=== PATIENT | female | born 1985 | race Caucasian/White ===

== ENCOUNTER → 2019-03-01 10:18 | Outpatient (BNVA) | payer MEDICAID, SELFPAY | PROVIDERS: Family Provider Nurse Practitioner Family; PCP Nurse Practitioner Family; Visit Provider Nurse Practitioner Family | DX: Z76.0 Encounter for issue of repeat prescription (principal); E03.9 Hypothyroidism, unspecified; G40.909 Epilepsy, unspecified, not intractable, without status epilepticus | CPT/HCPCS: 80053; 80061; 84443; 85025 ==

== ENCOUNTER → 2019-04-08 11:07 | Outpatient (BNVA) | payer MEDICAID, SELFPAY | PROVIDERS: Visit Provider Nurse Practitioner Family | DX: N75.0 Cyst of Bartholin's gland (principal); N89.8 Other specified noninflammatory disorders of vagina; R30.0 Dysuria | CPT/HCPCS: 81001; 87070; 87086 ==

== ENCOUNTER → 2019-04-16 07:41 | Outpatient (BNVA) | payer MEDICAID, SELFPAY | PROVIDERS: Visit Provider Nurse Practitioner | DX: F43.12 Post-traumatic stress disorder, chronic (principal); F70 Mild intellectual disabilities; F33.2 Major depressive disorder, recurrent severe without psychotic features | CPT/HCPCS: 90832; 99213 ==

== ENCOUNTER → 2019-04-29 10:23 | Outpatient (BNVA) | payer MEDICAID, SELFPAY | PROVIDERS: Visit Provider Nurse Practitioner Family | DX: G40.909 Epilepsy, unspecified, not intractable, without status epilepticus (principal); F33.2 Major depressive disorder, recurrent severe without psychotic features | CPT/HCPCS: 80164 ==

== ENCOUNTER 2019-06-23 18:17 | Emergency (ER) | payer MEDICAID, SELFPAY | END 2019-06-23 22:04 | disposition admitted as inpatient to this hospital (09) | LOC: ER 06-26 09:40 | PROVIDERS: Emergency Provider Physician Assistant | DX: T18.9XXA Foreign body of alimentary tract, part unspecified, initial encounter (principal); X58.XXXA Exposure to other specified factors, initial encounter | CPT/HCPCS: 12345; 36415; 71045; 74018; 80053; 80306; 80307; 81001; 84703; 85025; 87086; 99284; 99285 ==

== ENCOUNTER 2019-06-23 18:17 | Inpatient (IN) | payer MEDICAID, SELFPAY ==
[2019-06-23 18:28] VITALS: BMI 24.2
[2019-06-23 18:33] VITALS: BP 119/71; PULSE 90; RESP 16; TEMP 36.6; O2SAT 97
--- NOTE | 2019-06-23 18:33 | XR_ITS ---
WS: [id number] XR chest 1V portable [id number] REASON FOR EXAM: swallowed FB FINDINGS: A foreign body is seen in the region of the mid stomach appears to be a nail and measures a pproximately 9 mm in length. The lung vázquez are normal. No pneumothorax. XR/XR chest 1V portable [id number] IMPRESSION: Foreign body in the stomach appears to be a small nail.
--- NOTE | 2019-06-23 18:33 | XR_ITS ---
WS: [id number] XR KUB portable [id number] REASON FOR EXAM: Swallowed FB FINDINGS: The small nail is again seen in the mid stomach area. No perforations are noted. Nonspecifi c gas is seen throughout the bowel. XR/XR KUB portable [id number] IMPRESSION: Foreign body persists in the region of the stomach.
--- NOTE | 2019-06-23 18:34 | ED_ITS ---
HPI - General Adult General: Chief complaint: Airway/Esophagus Foreign Body Stated complaint: swallowed foreign object/ SI Time Seen by Provider: 06/23/19 18:28 History of Present Illness: HPI narrative: Patient is a 34-year-old female comes to the ED after swallowing a foreign body. Past medical history of major depressive disorder PTSD, seizure disorder and patient states earlier today she swallowed a thumbtack. She did it on purpose. Patient states she swallowed the thumbtack because she was feeling suicidal. Patient says she feels really sad and depressed recently. She states she has been hearing voices and they tell her to hurt 1 of her friends and they also told her to swallow the thumbtack to commit suicide. She also does claim she has had nightmares recently of her ex- boyfriend trying to get her. Associated symptoms: Deny chest pain, dyspnea, headache(s), nausea, rash, palpitations or vomiting Review of Systems Const: Denies: fever, chills or fatigue Eyes: Denies: change in vision or eye discomfort ENMT: Denies: throat pain, painful swallowing, nasal discharge or nasal congestion Card: Denies: chest pain, palpitations, edema, swelling of feet/ankles, shortness of breath on exertion or shortness of breath when lying down Resp: Denies: shortness of breath, productive cough or non-productive cough GI: Denies: abdominal pain, nausea, vomiting, diarrhea, constipation or blood in stool : Denies: flank pain, painful urination or blood in urine Musc: Denies: neck pain, back pain or extremity swelling Skin/Breast: Denies: rash or new lesion Neuro: Denies: headache, numbness in extremities or weakness in extremities Psych: Reports: depression, auditory hallucinations, suicidal ideation and other (ingested FB-thumbtack); Denies: visual hallucinations PFSH ED PFSH: Medical History Hypothyroidism Major depressive disorder, 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 Post-traumatic stress disorder, chronic Social History Smoking and tobacco status: never smoked Alcohol intake: never Caregiver/support person: Yes Lives independently: No Household members: other Details: LIVES IN A DETENTION Housing: Assisted Living Facility Marital status: Single Current occupational status: disabled Current gender identity: Female Physical Exam Const: COMMON NORMALS: no apparent distress and oriented x3 EXAM LIMITATIONS: other limitations (Pt appears to have a intellectual disability) HENMT: COMMON NORMALS: normocephalic HEAD & SCALP: normocephalic MOUTH: oral and palatal mucosa normal THROAT: posterior oropharynx normal and uvula midline Neck/C-Spine: COMMON NORMALS: supple GENERAL: Yes normal visual inspection Resp: COMMON NORMALS: normal respiratory effort, no retractions, no use of accessory muscles and clear to auscultation bilaterally AUSCULTATION: clear to auscultation bilaterally Cardio: COMMON NORMALS: regular rate, regular rhythm, S1 normal heart sound, S2 normal heart sound, no gallops, no clicks, no murmurs and peripheral pulses 2+ throughout RATE: regular rate RHYTHM: regular rhythm HEART SOUNDS: S1 normal and S2 normal PERIPHERAL PULSES: pulses 2+ throughout GI: COMMON NORMALS: normal to inspection, nondistended, normoactive bowel sounds, soft to palpation, non-tender and no masses PALPATION: Yes soft : COMMON NORMALS: Yes no CVA tenderness BLADDER/KIDNEY EXAM: Yes no CVA tenderness Back/Pelvis: COMMON NORMALS: no CVA tenderness Neuro: COMMON NORMALS: oriented x3 and moves all extremities Psych: APPEARANCE: Yes grossly normal ATTITUDE: Yes calm and Yes agitated (easily agitated when talking about incident) ACTIVITY/MOTOR BEHAVIOR: Yes appropriate eye contact SPEECH: Yes slow MOOD & AFFECT: Yes irritable (became irritable quickly) THOUGHT PROCESS: confused THOUGHT CONTENT: Yes suicidality and Yes hallucination(s) auditory ATTENTION/CONCENTRATION: Yes attention grossly intact and Yes concentration grossly intact MEMORY/COGNITION: Yes memory grossly intact and Yes cognition grossly intact INSIGHT: limited JUDGEMENT: limited Skin: COMMON NORMALS: no rashes or lesions noted GENERAL SKIN EXAM: no rashes or lesions noted and dry skin Course Consultations: Consultation #1: I spoke with Dr. Kendall about patient's case and he agreed to accept patient into the NPU. Time: 20:14 Vital Signs: Vital signs: Vital Signs Temperature 98.2 F 06/23/19 22:59 Pulse Rate 92 06/23/19 22:59 Respiratory Rate 23 H 06/23/19 22:59 Blood Pressure 102/66 06/23/19 22:59 Pulse Oximetry 97 06/23/19 22:59 MDM - General Adult MDM Narrative: Medical decision making narrative: Patient is a 34-year-old female who comes to the ED with SI and ingestion of a foreign body. Patient states she ingested a thumbtack because she was suicidal and heard voices telling her to do it. Chest x-ray and KUB were performed and thumbtack/nail was visualized in the stomach. I contacted Dr. Kendall and talked with him about patient's case. Dr. Kendall approved admitting patient into NPU. Lab Data: Attestation: I reviewed the patient's lab results. Labs: Lab Results 06/23/19 06/23/19 06/23/19 Range/Units 18:55 18:55 18:55 WBC 15.0 H (4.0-10.0) 10^3/ uL RBC 4.25 (4.1-5.3) 10^6/u L Hgb 13.9 (11.5-15.3) g/dL Hct 42.6 (37.0-47.0) % MCV 100.2 H (81-99) fL MCH 32.7 (28.0-34.0) pg MCHC 32.6 (30.0-36.0) g/dL RDW 13.8 (12.1-15.1) % Plt Count 293 (130-400) 10^3/c mm MPV 11.1 H (7.4-10.4) fL Neut % (Auto) 58.9 % Lymph % (Auto) 32.0 % [place] % (Auto) 7.8 % Eos % (Auto) 0.5 % Baso % (Auto) 0.3 % Neut # (Auto) 8.8 H (1.8-7.7) 10^3/u L Lymph # (Auto) 4.8 (0.8-4.8) 10^3/u L [place] # (Auto) 1.2 H (0.2-0.9) 10^3/u L Eos # (Auto) 0.1 (0.0-0.8) 10^3/u L Baso # (Auto) 0.0 (0.0-0.1) 10^3/u L Nucleated RBC % (a uto) 0 % Nucleated RBCs # 0.0 /100WBC Sodium 138 (136-145) mmol/L Potassium 3.5 (3.5-5.1) mmol/L Chloride 102 (98-107) mmol/L Carbon Dioxide 24 (22-29) mmol/L Anion Gap 15.5 (5-19) BUN 26 H (6-20) mg/dL Creatinine 0.8 (0.5-0.9) mg/dL GFR Calculation 81.2 L (90-130) mL/min Glucose 86 (65-115) mg/dL Calculated Osmolal ity 282 L (285-295) mOsm/k g Calcium 9.6 (8.5-10.5) mg/dL Total Bilirubin 0.2 (0.15-1.2) mg/dL AST 21 (0-32) U/L ALT 21 (0-33) U/L Alkaline Phosphata se 49 (35-105) IU/L Total Protein 7.4 (6.6-8.7) g/dL Albumin 3.7 (3.5-5.2) g/dL Globulin 3.7 (1.3-4.6) g/dL HCG, Qual Negative (Negative) Urine Color (Yellow) Urine Appearance (CLEAR) Urine pH (5-7) Ur Specific Gravit y (1.005-1.030) Urine Protein (Negative) Urine Glucose (UA) (Normal) Urine Ketones (Negative) Urine Blood (Negative) Urine Nitrate (Negative) Urine Bilirubin (NEGATIVE) Urine Urobilinogen (Negative) mg/dL Ur Leukocyte Shala ase (Negative) Urine RBC (0-2) /hpf Urine WBC (0-5) /hpf Ur Squamous Epith Cells (0-5) Urine Bacteria (NONE) Salicylates < 0.3 L (3-10) mg/dL Urine Opiates Scre en (Negative) ng/mL Acetaminophen < 5.0 L (10-30) ug/mL Ur Barbiturates Sc reen (Negative) ng/mL Ur Phencyclidine S crn (Negative) ng/mL Ur Amphetamines Sc reen (Negative) ng/mL U Benzodiazepines Scrn (Negative) ng/mL Urine Cocaine Scre en (Negative) ng/mL U Marijuana (THC) Screen (Negative) ng/mL Ethyl Alcohol < 10 (0-10) mg/dL 06/23/19 06/23/19 Range/Units 19:10 19:10 WBC (4.0-10.0) 10^3/ uL RBC (4.1-5.3) 10^6/u L Hgb (11.5-15.3) g/dL Hct (37.0-47.0) % MCV (81-99) fL MCH (28.0-34.0) pg MCHC (30.0-36.0) g/dL RDW (12.1-15.1) % Plt Count (130-400) 10^3/c mm MPV (7.4-10.4) fL Neut % (Auto) % Lymph % (Auto) % [place] % (Auto) % Eos % (Auto) % Baso % (Auto) % Neut # (Auto) (1.8-7.7) 10^3/u L Lymph # (Auto) (0.8-4.8) 10^3/u L [place] # (Auto) (0.2-0.9) 10^3/u L Eos # (Auto) (0.0-0.8) 10^3/u L Baso # (Auto) (0.0-0.1) 10^3/u L Nucleated RBC % (a uto) % Nucleated RBCs # /100WBC Sodium (136-145) mmol/L Potassium (3.5-5.1) mmol/L Chloride (98-107) mmol/L Carbon Dioxide (22-29) mmol/L Anion Gap (5-19) BUN (6-20) mg/dL Creatinine (0.5-0.9) mg/dL GFR Calculation (90-130) mL/min Glucose (65-115) mg/dL Calculated Osmolal ity (285-295) mOsm/k g Calcium (8.5-10.5) mg/dL Total Bilirubin (0.15-1.2) mg/dL AST (0-32) U/L ALT (0-33) U/L Alkaline Phosphata se (35-105) IU/L Total Protein (6.6-8.7) g/dL Albumin (3.5-5.2) g/dL Globulin (1.3-4.6) g/dL HCG, Qual (Negative) Urine Color Yellow (Yellow) Urine Appearance Sl hazy (CLEAR) Urine pH 5 (5-7) Ur Specific Gravit y 1.015 (1.005-1.030) Urine Protein Neg (Negative) Urine Glucose (UA) Norm (Normal) Urine Ketones Negative (Negative) Urine Blood 3+ H (Negative) Urine Nitrate Negative (Negative) Urine Bilirubin Neg (NEGATIVE) Urine Urobilinogen Norm (Negative) mg/dL Ur Leukocyte Shala ase 2+ H (Negative) Urine RBC 0-4 H (0-2) /hpf Urine WBC 15-25 H (0-5) /hpf Ur Squamous Epith Cells 5-10 H (0-5) Urine Bacteria 1+ H (NONE) Salicylates (3-10) mg/dL Urine Opiates Scre en Negative (Negative) ng/mL Acetaminophen (10-30) ug/mL Ur Barbiturates Sc reen Negative (Negative) ng/mL Ur Phencyclidine S crn Negative (Negative) ng/mL Ur Amphetamines Sc reen Negative (Negative) ng/mL U Benzodiazepines Scrn Positive H (Negative) ng/mL Urine Cocaine Scre en Negative (Negative) ng/mL U Marijuana (THC) Screen Negative (Negative) ng/mL Ethyl Alcohol (0-10) mg/dL Discharge Plan Discharge Patient Disposition: Admitted As Inpatient Admit Provider: Rome Kendall Condition: Stable Discharge Date/Time: 06/23/19 22:04 Coding Level of Care Code ED Industrial Ecologist for Lasha Fwd Exam Comprehensive
--- NOTE | 2019-06-23 18:48 | PC.NURSE ---
Patient brought in to ED by caregiver when patient swallowed a tack. Patient states she wanted to kill herself and didn't want to live anymore. Patient states she was hearing voices telling her to hurt her friend. Patient states she only hears voices, denies visual hallucinations. Patient reports pain to BLQ abd pain since swallowing tack.
[2019-06-23 18:59] LABS: Basophils % 0.3 %; Eosinophils # 0.1 10^3/uL (0.0-0.8); Eosinophils % 0.5 %; Hematocrit 42.6 % (37.0-47.0); Hemoglobin 13.9 g/dL (11.5-15.3); Lymphocytes # 4.8 10^3/uL (0.8-4.8); Mean Corpuscular HGB Conc 32.6 g/dL (30.0-36.0); Mean Corpuscular Hemoglobin 32.7 pg (28.0-34.0); Mean Corpuscular Volume 100.2 fL (81-99); Mean Platelet Volume 11.1 fL (7.4-10.4); Monocytes # 1.2 10^3/uL (0.2-0.9); Monocytes % 7.8 %; Neutrophils # 8.8 10^3/uL (1.8-7.7); Neutrophils % 58.9 %; Nucleated Red Blood Cells % 0 %; Platelet Count 293 10^3/cmm (130-400); Red Blood Count 4.25 10^6/uL (4.1-5.3); Red Cell Distribution Width 13.8 % (12.1-15.1)
[2019-06-23 19:17] LABS: Alanine Aminotransferase 21 U/L (0-33); Albumin Level 3.7 g/dL (3.5-5.2); Alkaline Phosphatase 49 IU/L (35-105); Anion Gap 15.5 (5-19); Aspartate Amino Transferase 21 U/L (0-32); Blood Urea Nitrogen 26 mg/dL (6-20); Calcium 9.6 mg/dL (8.5-10.5); Carbon Dioxide 24 mmol/L (22-29); Chloride 102 mmol/L (98-107); Globulin 3.7 g/dL (1.3-4.6); Glomerular Filtration Rate 81.2 mL/min (90-130); Glucose 86 mg/dL (65-115); Osmolality Calculated 282 mOsm/kg (285-295); Potassium 3.5 mmol/L (3.5-5.1); Sodium 138 mmol/L (136-145); Total Bilirubin 0.2 mg/dL (0.15-1.2); Total Protein 7.4 g/dL (6.6-8.7)
[2019-06-23 19:19] LABS: HCG, Serum Qual Negative (Negative)
[2019-06-23 19:21] LABS: Acetaminophen < 5.0 ug/mL (10-30); Alcohol Level < 10 mg/dL (0-10); Salicylate < 0.3 mg/dL (3-10)
[2019-06-23 19:42] LABS: Amphetamines Screen Urine Negative (Negative); Barbiturates Screen Urine Negative (Negative); Benzodiazepines Screen Urine Positive (Negative); Cocaine Screen Urine Negative (Negative); Opiate Screen Urine Negative (Negative); PCP Screen Urine Negative (Negative); THC Screen Urine Negative (Negative)
[2019-06-23 20:03] LABS: Bilirubin Urine Neg (NEGATIVE); Blood Urine 3+ (Negative); Glucose Urine UA Norm (Normal); Ketones Urine Negative (Negative); Leukocyte Esterase Urine 2+ (Negative); Nitrate Urine Negative (Negative); Protein Urine Neg (Negative); Specific Gravity, Urine 1.015 (1.005-1.030); Urine Appearance SL Hazy (CLEAR); Urine Color Yellow (Yellow); Urobilinogen Urine Norm (Negative); pH Urine 5 (5-7)
[2019-06-23 20:11] LABS: Bacteria Urine 1+; RBC Urine 0-4 /hpf (0-2); WBC Urine 15-25 /hpf (0-5)
[2019-06-23 20:12] LABS: Add Urine Culture? Yes
[2019-06-23 21:58] VITALS: BP 132/78; PULSE 84; RESP 16; O2SAT 99
--- NOTE | 2019-06-23 22:04 | PC.NURSE ---
I agree with this assessment
--- NOTE | 2019-06-23 22:29 | PC.NURSE ---
This nurse called Dr. Kendall to verify he wanted to continue patients home medications as listed by this nurse. Dr. Kendall stated to continue orders. PERNELL HEWITT
[2019-06-23 22:59] VITALS: BP 102/66; PULSE 92; RESP 23; TEMP 36.8; O2SAT 97
[2019-06-23] MEDS: topiramate 100 mg Tablet PO (23:00)
[2019-06-23] MEDS: divalproex ER 250 mg Tablet (24H) PO (23:00)
[2019-06-24 06:00] VITALS: BP 110/70; PULSE 103; RESP 17; TEMP 36.5; O2SAT 99
[2019-06-24] MEDS: fluoxetine 20 mg Capsule 60 MG PO (09:45)
[2019-06-24] MEDS: levothyroxine 100 mcg Tablet PO (09:45)
--- NOTE | 2019-06-24 12:14 | P.HP_ITS ---
Providers/Chief Complaint Admitting Physician: Rome Kendall MD Chief Complaint: swallowed foreign object HPI NPU History of Present Illness Shelby Cherry is a 34 year old female who presented to the emergency room having swallowed a tack after a conflict with a housemate. She was admitted for definitive treatment with medical follow-up for the swallowed tack. She was admitted to the neuro-psych unit with much of the same presentation as she did on October 08, 2018, also swallowing a nail/tack at that time and endorsing that she was having significant frustration and difficulty with people at her group h ome. Initially she endorsed that things had gotten really bad with her hearing voices and things of that nature, however conversations with her halfway did not create the same story. We discussed the risks, benefits, and alternatives of possibly adding medication, but wanted to observe for a day to see if this was just a Cluster B flareup. Excerpts from her last hospitalization are included below as there have been no significant changes in her psychosocial circumstances. [place] [facility] [place]: History of Present Illness Date of Service: Oct 08, 2018 Copies to: Dwayne Sharma MD ; Chief Complaint: Suicidal ideation, swallowed thumbtack HPI: Patient is a 33-year-old female with a past medical history of seizure disorder and intellectual disability that presented to the emergency department for suicidal ideation. Patient reported that she didn't want to live anymore and she swallowed a thumb tack. Patient lives in assisted living. Had been doing well prior to this episode. Denies any recent illness, no fevers or chills. Caregiver is at bedside Allergies: Coded Allergies: AMOXICILLIN (Unverified Allergy, Unknown, RASH, 01/03/08) PENICILLINS (Unverified Allergy, Unknown, UNKNOWN, 03/14/09) CAREGIVER UNSURE OF REACTION Uncoded Allergies: BAND AIDS (Allergy, Intermediate, RASH, ITCH, 06/11/07) DETERGENTS (Allergy, Unknown, RASH, 01/03/08) Home Meds: Home Medications: Active Reported Levothroid (Levothyroxine Sodium) 100 Mcg Tablet 100 Mcg PO DAILY @[address] (Divalproex Sodium) 250 Mg Tablet.dr 250 Mg PO HS @20:00 Depakote ER (Divalproex Sodium) 500 Mg Tab.sr.24h 500 Mg PO BID @ 8 AND 20:00 [Daysee] 1 Tab PO DAILY @ 8 Topamax (Topiramate) 100 Mg Tablet 100 Mg PO HS @20:00 Prozac Cap (Fluoxetine HCl) 20 Mg Tablet 40 Mg PO DAILY @8 Topamax Tab (Topiramate) 200 Mg Tablet 200 Mg PO DAILY @8 Past Medical History Past Medical History Past Medical History: Intellectual disability Seizure disorder Depression Other Surgical History: Cholecystectomy Other Family Medical History: Family history unknown Other Past Social History: Patient lives at an assisted living facility Tobacco: Denies Alcohol: Denies Illicit drug use: Denies Hospital Course: Shelby presented to the hospital secondary to swallowing a thumb tack. After e valuation for medical and surgical management of the ingestion, she was transferred to the psychiatric unit secondary to continue reports of lethality. Once on the unit she described concerns about the isolation and lack of camaraderie that she experienced that her structured living/halfway envi ronment. Her guardian was contacted and ultimately she was able to gain some acceptance of her situation and limited options from a standpoint of living arrangements after discharge. She slowly acclimated to the individual, group and milieu therapies provided. She was continued on her home medications without incident. She demonstrated some clear cluster B traits. And on the day of discharge she seemed to miraculously better. Routine laboratory studies were obtained which were within normal limits except for some outliers. These can be seen below. Additionally a routine general medical evaluation was conducted which was within normal limits and revealed no acute processes except for the thumb tack which she passed. At the time of discharge her mood had improved, she was absent lethality, and reported a desire to continue her treatment as an outpatient with a commitment to not repeating these behaviors.. She had obtained all the benefit he could from the inpatient environment, so she was discharged. Meds NPU Home Medications Medication Instructions Recorded Confirmed Last Taken Type levothyroxine 100 mcg capsule 100 mcg PO DAILY cap 02/19/19 06/23/19 Unknown History acetaminophen 325 mg capsule 650 mg PO Q6H PRN #120 cap 03/01/19 06/23/19 Unknown Rx dextromethorphan-guaifenesin 10 10 ml PO Q6H PRN #120 ml 03/01/19 06/23/19 Unknown Rx mg-100 mg/5 mL oral liquid fluoxetine 20 mg capsule 60 mg PO DAILY #90 cap 04/25/19 06/23/19 Unknown Rx L norgest/e.estradiol-e.estrad 1 tab PO DAILY 04/29/19 06/23/19 Unknown History 0.15 mg-30 mcg (84)/10 mcg(7) tabs,3mos divalproex 250 mg tablet,extended 500 mg PO BID #60 tab 05/23/19 06/23/19 Unknown Rx release 24 hr topiramate 200 mg tablet 200 mg PO DAILY #30 tab 05/23/19 06/23/19 Unknown Rx Topamax 100 mg PO BEDTIME 06/23/19 06/23/19 Unknown History divalproex 250 mg PO BEDTIME 06/23/19 06/23/19 Unknown History Allergies Allergy/AdvReac Type Severity Reaction Status Date / Time adhesive Allergy ALGY-Rash Verified 06/23/19 18:39 nitrofurantoin Allergy Unknown Verified 06/23/19 18:38 [From Macrobid] Penicillins Allergy Unknown Verified 06/23/19 18:38 PFSH NPU PFSH: Medical History Hypothyroidism Major depressive disorder, 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 Post-traumatic stress disorder, chronic Social History Smoking and tobacco status: never smoked Alcohol intake: never Caregiver/support person: Yes Lives independently: No Household members: other Details: LIVES IN A LONG-TERM Housing: Assisted Living Facility Marital status: Single Current occupational status: disabled Current gender identity: Female Mental Status Exam MSE Comments: This is a well-nourished, well-developed, white female, with adequate dress, limited grooming, and eye contact. No abnormal movements except for psychomotor retardation. Semi-cooperative with exam in no acute distress. Speech was decreased rate and volume. Mood described as depressed; affect congruent. Thought process, organized. Thought content: patient denied any suicidal or homicidal ideation, there were no delusions reported or noted, patient denied any auditory or visual hallucinations. Attention and concentration were limited, and memory was unreliable. She is alert and oriented times three. Insight and judgment are impaired. Impulse control is limited. Vitals/I&O/Wt Last Vital Signs Temp 98.7 F 06/24/19 22:00 Pulse 77 06/24/19 22:00 Resp 16 06/24/19 22:00 BP 91/61 06/24/19 22:00 Pulse Ox 94 06/24/19 22:00 Weight last 48 hrs Weight 68.039 kg Data NPU : 06/23/19 18:55 06/23/19 18:55 A&P Assessment and plan (1) Major depressive disorder, recurrent severe without psychotic features: This is a 34 year old, white female, with depressive disorder, unspecified, intellectual disability, mild versus moderate, intermittent explosive disorder, and borderline personality disorder, who presents with an intentional ingestion and reports that she is hearing voices though she does not appear to be in any kind of distress. Continue current medication. Will consider medication changes after a day of observation. Continue q 15-minute checks for safety. Order KUB for daily follow-up of movement of the nail. Encouraged individual, group, and milieu therapy. Will work with patient with return to home given that evidence points to short stays as the effective mode for treatment of Cluster B pathology. Status: Acute (2) Mild intellectual disabilities: Status: Acute (3) Post-traumatic stress disorder, chronic: Status: Acute (4) Borderline personality disorder: Status: Acute Involuntary Hold Information 96 Hour Hold: 96 Hour Involuntary Admission: No Attestations NPU Medical Necessity Statement*: Inpatient hospitalization is medically necessary and the clinically appropriate intervention at this time. We will monitor medications, and make adjustments as indicated. The patient will be in the hospital for over two midnights. Likely length of stay three to five days. Coding Level of Care Code Acute Kick Plate Installer for Lasha Turner Diagnoses Major depressive disorder, recurrent severe without psychotic features F33.2 Mild intellectual disabilities F70 Post-traumatic stress disorder, chronic F43.12 Borderline personality disorder F60.3
[2019-06-24 14:00] VITALS: BP 109/74; PULSE 71; RESP 20; TEMP 36.8; O2SAT 99
[2019-06-24] MEDS: hyDROXYzine 25 mg Capsule 50 MG PO (21:03)
[2019-06-24] MEDS: divalproex ER 250 mg Tablet (24H) PO (21:03)
[2019-06-24] MEDS: topiramate 100 mg Tablet PO (21:03)
[2019-06-24] MEDS: trazodone 50 mg Tablet PO (21:03)
[2019-06-24 22:00] VITALS: BP 91/61; PULSE 77; RESP 16; TEMP 37.1; O2SAT 94
[2019-06-25 06:00] VITALS: BP 91/58; PULSE 99; RESP 18; TEMP 36.8; O2SAT 96
[2019-06-25] MEDS: fluoxetine 20 mg Capsule 60 MG PO (08:39)
[2019-06-25] MEDS: levothyroxine 100 mcg Tablet PO (08:39)
[2019-06-25 13:31] VITALS: BP 93/61; PULSE 78; RESP 18; TEMP 36.9; O2SAT 98
--- NOTE | 2019-06-25 13:36 | P.PN_ITS ---
Subjective NPU Subjective: Interval history: Shelby presents today reporting that she still is hearing voices with no clear indication that there is anything wrong with her. We did discuss her previous medication history, and she does report that she has a history of success with Invega and given the possibility for a long acting injection, it would be a reasonable approach to her medication. She understood and agreed to proceed with a trial of Invega. Mental Status Exam MSE Comments: This is a well-nourished, well-developed, white female, with adequate dress, limited grooming, and eye contact. No abnormal movements except for psychomotor retardation. Cooperative with exam in no acute distress. Speech was decreased rate and volume. Mood described as depressed; affect congruent. Thought process, organized. Thought content: patient denied any suicidal or homicidal ideation, there were no delusions reported or noted. Auditory and visual hallucinations reported, and the patient does not appear to be attending to internal stimuli or be in any way distressed. Attention and concentration were intact, and memory was unreliable. She is alert and oriented times three. Insight and judgment are impaired. Intellectual disability is limited. Vitals/I&O/Wt Last Vital Signs Temp 97.7 F 06/25/19 22:00 Pulse 84 06/25/19 22:00 Resp 18 06/25/19 22:00 BP 101/70 06/25/19 22:00 Pulse Ox 96 06/25/19 22:00 Data NPU : 06/23/19 18:55 06/23/19 18:55 Micro: Microbiology 06/23/19 19:10 Urine Culture - Preliminary Urine,Clean Catch Microbiology 06/23/19 19:10 Urine,Clean Catch Urine Culture - Preliminary A&P Additional A&P Information (1) Major depressive disorder, recurrent severe without psychotic features: This is a 34 year old, white female, with depressive disorder, unspecified, intellectual disability, mild versus moderate, intermittent explosive disorder, and borderline personality disorder, who presents with an intentional ingestion and reports that she is hearing voices though she does not appear to be in any kind of distress. Continue current medication. Start invega 6 mg po qam Continue q 15-minute checks for safety. Order KUB for daily follow-up of movement of the nail. Encouraged individual, group, and milieu therapy. Will work with patient with return to home given that evidence points to short stays as the effective mode for treatment of Cluster B pathology. (2) Mild intellectual disabilities: (3) Post-traumatic stress disorder, chronic: (4) Borderline personality disorder: Involuntary Hold Information 96 Hour Hold: 96 Hour Involuntary Admission: No Attestations NPU Medical Necessity Statement*: Inpatient hospitalization is medically necessary and the clinically appropriate intervention at this time. We will monitor medications, and make adjustments as indicated. Likely length of stay 2-4days. Coding Level of Care Code Acute Tissue Specialist for Lasha Turner
--- NOTE | 2019-06-25 18:07 | XR_ITS ---
WS: [id number] XR KUB portable [id number] REASON FOR EXAM: PATIENT SWALLOWED A TACK FINDINGS: The foreign body today is now seen in the past ascending colon area no complications are no dea no free air in the abdomen. There is fecal stasis surrounding the foreign body. XR/XR KUB portable [id number] IMPRESSION: Foreign body is migrated to the mid ascending colon No definite complications are noted.
[2019-06-25] MEDS: paliperidone ER 3 mg Tablet PO (18:46)
[2019-06-25] MEDS: topiramate 100 mg Tablet PO (20:19)
[2019-06-25] MEDS: divalproex ER 250 mg Tablet (24H) PO (20:19)
[2019-06-25 22:00] VITALS: BP 101/70; PULSE 84; RESP 18; TEMP 36.5; O2SAT 96
[2019-06-26 05:56] VITALS: BP 102/68; PULSE 75; RESP 18; TEMP 36.8; O2SAT 96
[2019-06-26] MEDS: OLANZapine ODT 5 MG TABLET PO (06:53)
[2019-06-26] MEDS: fluoxetine 20 mg Capsule 60 MG PO (08:12)
[2019-06-26] MEDS: paliperidone ER 6 mg Tablet PO (08:12)
[2019-06-26] MEDS: levothyroxine 100 mcg Tablet PO (08:13)
[2019-06-26 12:58] VITALS: BP 91/56; PULSE 79; RESP 18; TEMP 36.7; O2SAT 99
--- NOTE | 2019-06-26 13:04 | P.PN_ITS ---
Subjective NPU Subjective: Interval history: Shelby presents today reporting that she is hearing voices and that she is not ready to go. We had a short discussion about the fact that the medication is needing to take some time to get to the effective point, but that additionally she has to explore the fact that returning to her senior living is not something that will likely be an option for her to avoid. She was clearly not happy with that, but we discussed the fact that we were not discharging her today and that we will continue to work with her on the symptoms that she is having. Mental Status Exam MSE Comments: This is an overweight, white female, with adequate dress, limited grooming, and eye contact being somewhat disheveled. Cooperative with exam in no acute distress. Speech was decreased rate and volume and quite child- like. Mood described as okay; affect congruent. Thought process, linear/organized. Thought content: patient continued to endorse occasional thoughts to harm herself. She denied any homicidal ideation, there were no delusions reported or noted. She endorsed auditory hallucinations but did not appear to be attending to internal stimuli. Attention and concentration were improving, and memory was unreliable, but none were formally tested. Alert and oriented times three. Insight and judgment are limited. Vitals/I&O/Wt Last Vital Signs Temp 98.3 F 06/26/19 05:56 Pulse 75 06/26/19 05:56 Resp 18 06/26/19 05:56 BP 102/66 06/26/19 05:56 Pulse Ox 96 06/26/19 05:56 Data NPU : 06/23/19 18:55 06/23/19 18:55 Micro: Microbiology 06/23/19 19:10 Urine Culture - Final Urine,Clean Catch Microbiology 06/23/19 19:10 Urine,Clean Catch Urine Culture - Final A&P Additional A&P Information (1) Major depressive disorder, recurrent severe without psychotic features: This is a 34 year old, white female, with depressive disorder, unspecified, intellectual disability, mild versus moderate, intermittent explosive disorder, and borderline personality disorder, who presents with an intentional ingestion and reports that she is hearing voices though she does not appear to be in any kind of distress. Continue current medication. Continue q 15-minute checks for safety. Order KUB for daily follow-up of movement of the nail. Encouraged individual, group, and milieu therapy. Will work with patient with return to home given that evidence points to short stays as the effective mode for treatment of Cluster B pathology. (2) Mild intellectual disabilities: (3) Post-traumatic stress disorder, chronic: (4) Borderline personality disorder: Involuntary Hold Information 96 Hour Hold: 96 Hour Involuntary Admission: No Attestations NPU Medical Necessity Statement*: Inpatient hospitalization is medically necessary and the clinically appropriate intervention at this time. We will monitor medications, and make adjustments as indicated. Likely length of stay 1-3 days. Coding Level of Care Code Acute Transliterator for Lasha Turner
[2019-06-26 21:32] VITALS: BP 103/72; PULSE 101; RESP 17; TEMP 36.7; O2SAT 97
[2019-06-26] MEDS: trazodone 50 mg Tablet PO (21:32)
[2019-06-26] MEDS: topiramate 100 mg Tablet PO (21:32)
[2019-06-26] MEDS: divalproex ER 250 mg Tablet (24H) PO (21:32)
[2019-06-27 06:00] VITALS: BP 102/66; PULSE 120; RESP 18; TEMP 37.1; O2SAT 97
[2019-06-27] MEDS: paliperidone ER 6 mg Tablet PO (07:41)
[2019-06-27] MEDS: levothyroxine 100 mcg Tablet PO (07:41)
[2019-06-27] MEDS: fluoxetine 20 mg Capsule 60 MG PO (07:41)
[2019-06-27 14:00] VITALS: BP 111/69; PULSE 91; RESP 18; TEMP 36.9; O2SAT 96
--- NOTE | 2019-06-27 17:24 | P.PN_ITS ---
Subjective NPU Subjective: Interval history: The patient presents today reporting that she was not ready to go back to her [place] [facility], but then engaging in a conversation about going back to the [place] [facility]. We once again discussed that fact that, especially in this COVID crisis, options for change in group homes and finding new places to stay are just fairly limited to non-existent. We discussed that if she truly felt the need to change locations, she would likely need to put in some kind of request and ultimately work with her guardian to make a change, but that change would likely have to come from being at the [place] [facility] and not in a hospital setting, because we do not have the capacity to keep her for months while she waits for some new option. Mental Status Exam MSE Comments: This is an overweight, white female, with adequate dress and limited grooming and eye contact, still appearing a little disheveled. No abnormal movements, except for improving psychomotor retardation. Cooperative with exam in no acute distress. Speech was decreased rate and volume and childlike. Mood described as okay; affect a little brighter. Thought process, linear to organized. Thought content: patient denied any suicidal or homicidal ideation, there were no delusions reported or noted, she did not report auditory or visual hallucinations, and I did not ask. Attention and concentration appeared more intact, and memory was more reliable, but none were formally tested. She is alert and oriented times three. Insight and judgment are limited. 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 Continue current medication. Continue q 15-minute checks for safety. Order KUB for daily follow-up of movement of the nail. Encouraged individual, group, and milieu therapy. Will work with patient with return to home given that evidence points to short stays as the effective mode for treatment of Cluster B pathology. (2) Mild intellectual disabilities: (3) Post-traumatic stress disorder, chronic: (4) Borderline personality disorder: Involuntary Hold Information 96 Hour Hold: 96 Hour Involuntary Admission: No Attestations NPU Medical Necessity Statement*: Inpatient hospitalization is medically necessary and the clinically appropriate intervention at this time. We will monitor medications, and make adjustments as indicated. Likely length of stay 1-3 days. Coding Level of Care Code Acute Relations Mgr for Lasha Turner
[2019-06-27] MEDS: topiramate 100 mg Tablet PO (20:47)
[2019-06-27] MEDS: divalproex ER 250 mg Tablet (24H) PO (20:47)
[2019-06-27 22:00] VITALS: BP 104/71; PULSE 85; RESP 17; TEMP 36.5; O2SAT 98
[2019-06-28 06:00] VITALS: BP 90/56; PULSE 76; RESP 18; TEMP 36.7; O2SAT 98
[2019-06-28] MEDS: paliperidone ER 6 mg Tablet PO (09:08)
[2019-06-28] MEDS: levothyroxine 100 mcg Tablet PO (09:08)
[2019-06-28] MEDS: fluoxetine 20 mg Capsule 60 MG PO (09:08)
--- NOTE | 2019-06-28 12:21 | P.DS_ITS ---
Diagnoses at Discharge Discharge Diagnosis (1) Major depressive disorder, recurrent severe without psychotic features: Status: Acute (2) Mild intellectual disabilities: Status: Acute (3) Post-traumatic stress disorder, chronic: Status: Acute (4) Borderline personality disorder: Status: Acute Reason for Visit Reason for Visit: Reason For Visit: swallowed foreign object Brief History: History of Present Illness Shelby Cherry is a 34 year old female who presented to the emergency room having swallowed a tack after a conflict with a housemate. She was admitted for definitive treatment with medical follow-up for the swallowed tack. She was admitted to the neuro-psych unit with much of the same presentation as she did on October 08, 2018, also swallowing a nail/tack at that time and endorsing that she was having significant frustration and difficulty with people at her custodial. Initially she endorsed that things had gotten really bad with her hearing voices and things of that nature, however conversations with her custodial did not create the same story. We discussed the risks, benefits, and alternatives of possibly adding medication, but wanted to observe for a day to see if this was just a Cluster B flareup. Excerpts from her last hospitalization are included below as there have been no significant changes in her psychosocial circumstances. Per recent [facility] d/c summary: History of Present Illness Date of Service: Oct 08, 2018 Copies to: Dwayne Sharma MD ; Chief Complaint: Suicidal ideation, swallowed thumbtack HPI: Patient is a 33-year-old female with a past medical history of seizure disorder and intellectual disability that presented to the emergency department for suicidal ideation. Patient reported that she didn't want to live anymore and she swallowed a thumb tack. Patient lives in assisted living. Had been doing well prior to this episode. Denies any recent illness, no fevers or chills. Caregiver is at bedside Allergies: Coded Allergies: AMOXICILLIN (Unverified Allergy, Unknown, RASH, 01/03/08) PENICILLINS (Unverified Allergy, Unknown, UNKNOWN, 03/14/09) CAREGIVER UNSURE OF REACTION Uncoded Allergies: BAND AIDS (Allergy, Intermediate, RASH, ITCH, 06/11/07) DETERGENTS (Allergy, Unknown, RASH, 01/03/08) Home Meds: Home Medications: Active Reported Levothroid (Levothyroxine Sodium) 100 Mcg Tablet 100 Mcg PO DAILY @[address] (Divalproex Sodium) 250 Mg Tablet.dr 250 Mg PO HS @20:00 Depakote ER (Divalproex Sodium) 500 Mg Tab.sr.24h 500 Mg PO BID @ 8 AND 20:00 [Daysee] 1 Tab PO DAILY @ 8 Topamax (Topiramate) 100 Mg Tablet 100 Mg PO HS @20:00 Prozac Cap (Fluoxetine HCl) 20 Mg Tablet 40 Mg PO DAILY @8 Topamax Tab (Topiramate) 200 Mg Tablet 200 Mg PO DAILY @8 Past Medical History Past Medical History Past Medical History: Intellectual disability Seizure disorder Depression Other Surgical History: Cholecystectomy Other Family Medical History: Family history unknown Other Past Social History: Patient lives at an assisted living facility Tobacco: Denies Alcohol: Denies Illicit drug use: Denies Hospital Course: Shelby presented to the hospital secondary to swallowing a thumb tack. After evaluation for medical and surgical management of the ingestion, she was transferred to the psychiatric unit secondary to continue reports of lethality. Once on the unit she described concerns about the isolation and lack of camaraderie that she experienced that her structured living/custodial environment. Her guardian was contacted and ultimately she was able to gain some acceptance of her situation and limited options from a standpoint of living arrangements after discharge. She slowly acclimated to the individual, group and milieu therapies provided. She was continued on her home medications without incident. She demonstrated some clear cluster B traits. And on the day of discharge she seemed to miraculously better. Routine laboratory studies were obtained which were within normal limits except for some outliers. These can be seen below. Additionally a routine general medical evaluation was conducted which was within normal limits and revealed no acute processes except for the thumb tack which she passed. At the time of discharge her mood had improved, she was absent lethality, and reported a desire to continue her treatment as an outpatient with a commitment to not repeating these behaviors.. She had obtained all the benefit he could from the inpatient environment, so she was discharged. Hospital Course Hospital Course Shelby presented to the emergency room after an argument at her custodial, after which she swallowed a small nail, tack, or something that she had pulled from off the wall. This was not the first time she had executed this behavior and she was evaluated by surgery, and it was deemed that they would monitor the passing of this foreign body via KUB. She was endorsing suicidal thoughts and saying that she was hearing voices, and so she was admitted to the neuro-psychiatric unit for definitive treatment of those issues. On the unit, she was very much stressing that she was hearing the voices and also acknowledging a clear concern from the beginning that she was not interested in returning to the custodial. She very slowly acclimated to the individual, group, and milieu therapies provided and she was started on Invega and she had a positive response to the medication. During the hospitalization she had routine laboratory studies which were within normal limits except for a few outliers. Additionally, she had a general medical evaluation which was also generally within normal limits and revealed no new acute processes outside of this foreign body, which was followed by [facility] as an inpatient. Discharge Summary At the time of discharge, she was absent lethality, she denied all psychosis and her mood and anxiety were well managed. She endorsed a plan to avoid a similar behavior in regard to foreign bodies, and her custodial reported a plan to follow-up with the treatment recommendations for outpatient services as recommended. She was evaluated and deemed to be absent credible lethality and had achieved the maximum benefit from an inpatient hospitalization, so she was discharged. Involuntary Hold Information 96 Hour Hold: 96 Hour Involuntary Admission: No Mental Status Exam MSE Comments: This is an overweight, white female, with adequate dress, grooming, and eye contact. No abnormal movements. Cooperative with exam in no acute distress. Speech was normal rate and volume with some mild dysarthria. Mood described as pretty good/really good; affect congruent. Thought process, organized. Thought content: patient denied any suicidal or homicidal ideation, there were no delusions reported or noted, patient denied any auditory or visual hallucinations. Attention, concentration, and memory appeared intact but were not formally tested. Alert and oriented times three. Insight and judgment are limited. Intellectual ability impaired, and impulse control limited but improving. Discharge Data Data Completed and Pending: Completed Studies During Hospitalization Category Date Time Status XR KUB portable [id number] Routine Exams 06/25/19 18:07 Completed XR KUB portable 7 [id number] Stat Exams 06/23/19 18:33 Completed XR chest 1V jez ble [id number] Stat Exams 06/23/19 18:33 Completed Vitals: Last Vital Signs Temp 98.1 F 06/28/19 06:00 Pulse 76 06/28/19 06:00 Resp 18 06/28/19 06:00 BP 90/56 06/28/19 06:00 Pulse Ox 98 06/28/19 06:00 Discharge Plan Discharge Patient Disposition: Home, Self-Care Condition: Stable Prescriptions: New topiramate 100 mg Tablet 100 mg PO BEDTIME 30 Days Qty: 30 RF: 1 paliperidone 6 mg Tablet Extended Release 24hr 6 mg PO DAILY 30 Days Qty: 30 RF: 1 Continued acetaminophen 325 mg capsule 650 mg PO Q6H PRN (Reason: fever of 100.4 or greater and/or pain) Qty: 120 RF: 2 dextromethorphan-guaifenesin [Guaiasorb DM] 10-100 mg/5 mL liquid 10 ml PO Q6H PRN (Reason: cough) Qty: 120 RF: 2 fluoxetine [Prozac] 20 mg capsule 60 mg PO DAILY Qty: 90 RF: 2 Topamax 100 mg tablet 100 mg PO BEDTIME 30 Days Qty: 60 RF: 1 divalproex 250 mg Tablet Extended Release 24 Hr 250 mg PO BEDTIME 30 Days Qty: 30 RF: 1 Camrese 0.15 mg-30 mcg (84)/10 mcg (7) tablets,dose pack,3 month 1 tab PO DAILY 30 Days Qty: 30 RF: 1 levothyroxine 100 mcg capsule 100 mcg PO DAILY 30 Days Qty: 30 RF: 1 Discontinued divalproex [Depakote ER] 250 mg tablet extended release 24 hr 500 mg PO BID Qty: 60 RF: 2 topiramate 200 mg tablet 200 mg PO DAILY Qty: 30 RF: 2 No Action polyethylene glycol 3350 [Miralax] 17 gram/dose powder 17 gm PO DAILY PRN (Reason: constipation) Qty: 238 RF: 2 Discharge Orders: Discharge Order (Routine); Ordered 06/28/19 Ordered By: Rome Kendall Referrals: Latricia Sanders PMHNP [Staff Physician] - 07/08/19 9:00 am Discharge Diet: Regular Discharge Activity: Resume usual activity Patient Instructions: Topiramate (By mouth), Paliperidone (By mouth) Discharge Date/Time: 06/28/19 14:10 Discharge Attestations NPU Time Spent in Discharge Care*: less than 30 min Specific Discharge Activities: Specific discharge activities: educating patient, discussing with case manager/social workers/dc planners, documenting/other paperwork and evaluating patient/reviewing data Coding Level of Care Code Acute Wire Cutter for Chg Fwd Diagnoses Major depressive disorder, recurrent severe without psychotic features F33.2 Mild intellectual disabilities F70 Post-traumatic stress disorder, chronic F43.12 Borderline personality disorder F60.3
[2019-06-28 12:33] VITALS: BP 90/56; PULSE 76; RESP 18; TEMP 36.7; O2SAT 98
== END 2019-06-28 14:10 | disposition home or self-care (01) | DRG 885 ==
LOC: ER 20:15 → NP 21:25
PROVIDERS: Admitting Provider Psychiatry & Neurology Psychiatry; Emergency Provider Physician Assistant; Visit Provider Psychiatry & Neurology Psychiatry
DX: F33.2 Major depressive disorder, recurrent severe without psychotic features (principal); T18.2XXA Foreign body in stomach, initial encounter; X83.8XXA Intentional self-harm by other specified means, initial encounter; Y93.89 Activity, other specified; G40.909 Epilepsy, unspecified, not intractable, without status epilepticus; F70 Mild intellectual disabilities; E03.9 Hypothyroidism, unspecified; F43.12 Post-traumatic stress disorder, chronic; F60.3 Borderline personality disorder; F63.81 Intermittent explosive disorder; F60.89 Other specific personality disorders
CPT/HCPCS: 12345; 36415; 71045; 74018; 80053; 80306; 80307; 81001; 84703; 85025; 87086; 99284; 99285

== ENCOUNTER → 2019-07-02 10:12 | Outpatient (BNVA) | payer MEDICAID, SELFPAY | PROVIDERS: Visit Provider Nurse Practitioner Family | DX: T18.9XXA Foreign body of alimentary tract, part unspecified, initial encounter (principal); K59.00 Constipation, unspecified; X58.XXXA Exposure to other specified factors, initial encounter | CPT/HCPCS: 74018 ==

== ENCOUNTER → 2019-07-08 07:47 | Outpatient (BNVA) | payer MEDICAID, SELFPAY | PROVIDERS: Visit Provider Nurse Practitioner | DX: F33.2 Major depressive disorder, recurrent severe without psychotic features (principal); F70 Mild intellectual disabilities; F43.12 Post-traumatic stress disorder, chronic; F41.1 Generalized anxiety disorder | CPT/HCPCS: 99214 ==

== ENCOUNTER → 2019-08-06 11:00 | Outpatient (BNVA) | payer MEDICAID, SELFPAY | PROVIDERS: Visit Provider Nurse Practitioner Family | DX: Z12.4 Encounter for screening for malignant neoplasm of cervix (principal) | CPT/HCPCS: 88175 ==

== ENCOUNTER 2019-08-13 06:49 | Emergency (ER) | payer MEDICAID, SELFPAY | END 2019-08-13 08:18 | disposition admitted as inpatient to this hospital (09) | LOC: ER 08-15 17:58 | PROVIDERS: Emergency Provider Emergency Medicine | DX: R45.851 Suicidal ideations (principal) | CPT/HCPCS: 12345; 36415; 80053; 80307; 85025; 99284; 99285 ==

== ENCOUNTER 2019-08-13 06:49 | Inpatient (IN) | payer MEDICAID, SELFPAY ==
[2019-08-13 06:56] VITALS: BMI 27.4
[2019-08-13 07:01] VITALS: BP 104/79; PULSE 83; RESP 16; TEMP 36.8; O2SAT 99
--- NOTE | 2019-08-13 07:02 | ED_ITS ---
HPI - Psych General: Chief Complaint: Psychiatric Symptoms Stated Complaint: SI Time Seen by Provider: 08/13/19 06:54 Source: patient and EMS Mode of arrival: EMS Limitations: no limitations History of Present Illness: HPI Narrative: 34-year-old female who has a history of depression he states she has been having suicidal thoughts over the last 2 days. Patient states that she has a plan to kill herself by cutting herself with razors. Patient denies any worsening or improving factors. complaint: suicidal ideation Onset (ago): day(s) Duration: intermittent History of same: Yes Relieving factors: none Exacerbating factors: none Associated symptoms: Reports depression and suicidal ideation Review of Systems Const: Denies: fever(s), chills, body aches or change in appetite Eyes: Denies: blurry vision or eye discomfort ENMT: Denies: throat pain or dental pain Card: Denies: chest pain Resp: Denies: dyspnea GI: Denies: abdominal pain, nausea, vomiting or diarrhea : Denies: dysuria Musc: Denies: neck pain or back pain Skin/Breast: Denies: rash Neuro: Denies: headache(s) Psych: Reports: depression and suicidal ideation Hayden/Lymph: Denies: easy bruising All/Imm: Denies: urticaria PFSH ED PFSH: Medical History Constipation H/O swallowed foreign body Hypothyroidism Major depressive disorder, 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 Post-traumatic stress disorder, chronic Social History Smoking and tobacco status: never smoked Alcohol intake: never Caregiver/support person: Yes Lives independently: No Household members: other Details: LIVES IN A SKILLED NURSING Housing: Assisted Living Facility Marital status: Single Current occupational status: disabled Current gender identity: Female Female Reproductive History: Date of last menstrual period: 06/12/19 Physical Exam Const: COMMON NORMALS: no acute distress, patient oriented x3 and healthy appearing HENMT: COMMON NORMALS: normocephalic and atraumatic HEAD & SCALP: nor mocephalic and atraumatic Eye: COMMON NORMALS: Equal, round and reactive pupils present and EOMs intact bilaterally PUPIL: Yes Equal, round and reactive pupils present Neck/C-Spine: COMMON NORMALS: full ROM and supple Chest: COMMONS NORMALS: normal inspection of the chest and normal palpation of entire chest wall Resp: COMMON NORMALS: normal respiratory effort, No retractions, No use of accessory muscles and clear to auscultation bilaterally AUSCULTATION: clear to auscultation bilaterally Cardio: COMMON NORMALS: regular rate, regular rhythm and No murmurs present (Cardio) RATE: regular rate RHYTHM: regular rhythm GI: COMMON NORMALS: Normal to inspection, nondistended, normoactive bowel sounds present, Soft to palpation, non-tender and no masses PALPATION: Yes Soft to palpation Extremity: COMMON NORMALS: normal to inspection and full ROM Neuro: COMMON NORMALS: patient oriented x3, moves all extremities and no focal motor deficits Psych: COMMON NORMALS: mental status grossly normal and cooperative MOOD & AFFECT: Yes depressed mood THOUGHT CONTENT: Yes Suicidality present Skin: COMMON NORMALS: no rashes or lesions noted and no wounds GENERAL SKIN EXAM: no rashes or lesions noted MDM - Psych MDM Narrative: Medical decision making narrative: Patient presents here with suicidal ideation with a plan to kill herself by slitting her wrist. Patient placed under 96-hour hold and is medically cleared. I spoke to Dr. Kendall and will admit patient to psychiatric unit. Lab Data: Labs: Lab Results 08/13/19 Range/Units 07:25 WBC 10.7 H (4.0-10.0) 10^3/ uL RBC 3.98 L (4.1-5.3) 10^6/u L Hgb 12.5 (11.5-15.3) g/dL Hct 39.1 (37.0-47.0) % MCV 98.2 (81-99) fL MCH 31.4 (28.0-34.0) pg MCHC 32.0 (30.0-36.0) g/dL RDW 12.7 (12.1-15.1) % Plt Count 411 H (130-400) 10^3/c mm MPV 10.0 (7.4-10.4) fL Neut % (Auto) 67.7 % Lymph % (Auto) 24.9 % Isabella % (Auto) 6.4 % Eos % (Auto) 0.3 % Baso % (Auto) 0.5 % Neut # (Auto) 7.2 (1.8-7.7) 10^3/u L Lymph # (Auto) 2.7 (0.8-4.8) 10^3/u L Isabella # (Auto) 0.7 (0.2-0.9) 10^3/u L Eos # (Auto) 0.0 (0.0-0.8) 10^3/u L Baso # (Auto) 0.1 (0.0-0.1) 10^3/u L Nucleated RBC % (a uto) 0 % Nucleated RBCs # 0.0 /100WBC EKG Data^: EKG 1: Attestation: I personally reviewed and interpreted this EKG as follows: EKG interpretation date: 08/13/19 EKG interpretation time: 07:04 Interpretation: nsr hr [address] or t wave abnormalities qrs 75 qtc 388 Discharge Plan Discharge Patient Disposition: Admitted As Inpatient Clinical Impression: Suicidal ideation Condition: Stable Coding Level of Care Code ED Supervisor Customer Complaint Service for Chg Fwd Exam Comprehensive
--- NOTE | 2019-08-13 07:06 | PC.NURSE ---
Shift change report taken.
[2019-08-13 07:32] LABS: Basophils # 0.1 10^3/uL (0.0-0.1); Basophils % 0.5 %; Eosinophils % 0.3 %; Hematocrit 39.1 % (37.0-47.0); Hemoglobin 12.5 g/dL (11.5-15.3); Lymphocytes # 2.7 10^3/uL (0.8-4.8); Lymphocytes % 24.9 %; Mean Corpuscular Hemoglobin 31.4 pg (28.0-34.0); Mean Corpuscular Volume 98.2 fL (81-99); Monocytes # 0.7 10^3/uL (0.2-0.9); Monocytes % 6.4 %; Neutrophils # 7.2 10^3/uL (1.8-7.7); Neutrophils % 67.7 %; Nucleated Red Blood Cells % 0 %; Platelet Count 411 10^3/cmm (130-400); Red Blood Count 3.98 10^6/uL (4.1-5.3); Red Cell Distribution Width 12.7 % (12.1-15.1); White Blood Count 10.7 10^3/uL (4.0-10.0)
[2019-08-13 07:49] LABS: Alanine Aminotransferase 20 U/L (0-33); Albumin Level 3.9 g/dL (3.5-5.2); Alkaline Phosphatase 49 IU/L (35-105); Anion Gap 16.1 (5-19); Aspartate Amino Transferase 17 U/L (0-32); Blood Urea Nitrogen 15 mg/dL (6-20); Calcium 9.3 mg/dL (8.5-10.5); Carbon Dioxide 22 mmol/L (22-29); Chloride 104 mmol/L (98-107); Glomerular Filtration Rate 94.7 mL/min (90-130); Glucose 81 mg/dL (65-115); Osmolality Calculated 281 mOsm/kg (285-295); Potassium 4.1 mmol/L (3.5-5.1); Sodium 138 mmol/L (136-145); Total Bilirubin 0.3 mg/dL (0.15-1.2); Total Protein 6.9 g/dL (6.6-8.7)
[2019-08-13 08:06] LABS: Acetaminophen < 5.0 ug/mL (10-30); Alcohol Level < 10 mg/dL (0-10); Salicylate < 0.3 mg/dL (3-10)
[2019-08-13 08:15] LABS: HCG Qualitative Urine. Negative (Negative)
[2019-08-13 08:18] VITALS: BP 104/67; PULSE 92; TEMP 36.7; O2SAT 99
[2019-08-13 08:33] VITALS: BP 112/75; PULSE 81; RESP 18; TEMP 37; O2SAT 98
[2019-08-13 08:38] LABS: Amphetamines Screen Urine Negative (Negative); Barbiturates Screen Urine Negative (Negative); Benzodiazepines Screen Urine Positive (Negative); Cocaine Screen Urine Negative (Negative); Opiate Screen Urine Negative (Negative); PCP Screen Urine Negative (Negative); THC Screen Urine Negative (Negative)
[2019-08-13] MEDS: paliperidone ER 6 mg Tablet PO (12:03)
[2019-08-13] MEDS: fluoxetine 20 mg Capsule 60 MG PO (12:03)
[2019-08-13 14:00] VITALS: BP 113/76; PULSE 91; RESP 18; TEMP 36.7; O2SAT 99
--- NOTE | 2019-08-13 17:19 | PM.NHP ---
Providers/Chief Complaint Admitting Physician: Rome Kendall MD Chief Complaint: SI HPI NPU History of Present Illness Shelby Cherry is a 34 year old female who presented to the emergency room endorsing a plan too kill herself. She endorsed depression and inability to contract for safety. She was admitted to the neuropsychiatric unit for definitive treatment of those issues. Today she reports that she feels horrible and she is hearing voices and she does not think she is going to get better. This is very much in keeping with her MO which often appears to fall in line with a lack of desire of being at the custodial. Her last hospitalization about 6 weeks ago she swallowed a tach and came to the unit and basically each day reported hearing voices but did not appear to be attending to internal stimuli or having any cognitive expression of this statement she continues to make. She has significant intellectual disability and clear cluster B pathology lacking significant coping skills. We reviewed her last hospitalizations and she agreed that there were not substantive changes in her psychosocial circumstances so a excerpt of her last stay is included below. Per her 06/24/2019 [facility] eval: History of Present Illness Shelby Cherry is a 34 year old female who presented to the emergency room having swallowed a tack after a conflict with a housemate. She was admitted for definitive treatment with medical follow-up for the swallowed tack. She was admitted to the neuro-psych unit with much of the same presentation as she did on October 08, 2018, also swallowing a nail/tack at that time and endorsing that she was having significant frustration and difficulty with people at her custodial. Initially she endorsed that things had gotten really bad with her hearing voices and things of that nature, however conversations with her custodial did not create the same story. We discussed the risks, benefits, and alternatives of possibly adding medication, but wanted to observe for a day to see if this was just a Cluster B flareup. Excerpts from her last hospitalization are included below as there have been no significant changes in her psychosocial circumstances. Per recent [facility] d/c summary: History of Present Illness Date of Service: Oct 08, 2018 Copies to: Dwayne Sharma MD ; Chief Complaint: Suicidal ideation, swallowed thumbtack HPI: Patient is a 33-year-old female with a past medical history of seizure disorder and intellectual disability that presented to the emergency department for suicidal ideation. Patient reported that she didn't want to live anymore and she swallowed a thumb tack. Patient lives in assisted living. Had been doing well prior to this episode. Denies any recent illness, no fevers or chills. Caregiver is at bedside Allergies: Coded Allergies: AMOXICILLIN (Unverified Allergy, Unknown, RASH, 01/03/08) PENICILLINS (Unverified Allergy, Unknown, UNKNOWN, 03/14/09) CAREGIVER UNSURE OF REACTION Uncoded Allergies: BAND AIDS (Allergy, Intermediate, RASH, ITCH, 06/11/07) DETERGENTS (Allergy, Unknown, RASH, 01/03/08) Home Meds: Home Medications: Active Reported Levothroid (Levothyroxine Sodium) 100 Mcg Tablet 100 Mcg PO DAILY @[address] (Divalproex Sodium) 250 Mg Tablet.dr 250 Mg PO HS @20:00 Depakote ER (Divalproex Sodium) 500 Mg Tab.sr.24h 500 Mg PO BID @ 8 AND 20:00 [Daysee] 1 Tab PO DAILY @ 8 Topamax (Topiramate) 100 Mg Tablet 100 Mg PO HS @20:00 Prozac Cap (Fluoxetine HCl) 20 Mg Tablet 40 Mg PO DAILY @8 Topamax Tab (Topiramate) 200 Mg Tablet 200 Mg PO DAILY @8 Past Medical History Past Medical History Past Medical History: Intellectual disability Seizure disorder Depression Other Surgical History: Cholecystectomy Other Family Medical History: Family history unknown Other Past Social History: Patient lives at an assisted living facility Tobacco: Denies Alcohol: Denies Illicit drug use: Denies Hospital Course: Shelby presented to the hospital secondary to swallowing a thumb tack. After evaluation for medical and surgical management of the ingestion, she was transferred to the psychiatric unit secondary to continue reports of lethality. Once on the unit she described concerns about the isolation and lack of camaraderie that she experienced that her structured living/custodial environment. Her guardian was contacted and ultimately she was able to gain some acceptance of her situation and limited options from a standpoint of living arrangements after discharge. She slowly acclimated to the individual, group and milieu therapies provided. She was continued on her home medications without incident. She demonstrated some clear cluster B traits. And on the day of discharge she seemed to miraculously better. Routine laboratory studies were obtained which were within normal limits except for some outliers. These can be seen below. Additionally a routine general medical evaluation was conducted which was within normal limits and revealed no acute processes except for the thumb tack which she passed. At the time of discharge her mood had improved, she was absent lethality, and reported a desire to continue her treatment as an outpatient with a commitment to not repeating these behaviors.. She had obtained all the benefit he could from the inpatient environment, so she was discharged. Meds NPU Home Medications Medication Instructions Recorded Confirmed Last Taken Type acetaminophen 325 mg capsule 650 mg PO Q6H PRN #120 cap 03/01/19 08/13/19 08/12/19 Rx dextromethorphan-guaifenesin 10 10 ml PO Q6H PRN #120 ml 03/01/19 08/13/19 Unknown Rx mg-100 mg/5 mL oral liquid L norgest/e.estradiol-e.estrad 1 tab PO DAILY 30 Days #30 ea 06/28/19 08/13/19 08/12/19 Rx [Camrese] levothyroxine 100 mcg PO DAILY 30 Days #30 cap 06/28/19 08/13/19 08/12/19 Rx topiramate 100 mg PO BEDTIME 30 Days #30 tab 06/28/19 08/13/19 08/12/19 Rx polyethylene glycol 3350 17 17 gm PO DAILY PRN #238 gm 07/02/19 08/13/19 08/12/19 Rx gram/dose oral powder divalproex 250 mg tablet,extended 250 mg PO BEDTIME 30 Days #30 tab 07/08/19 08/13/19 08/12/19 Rx release 24 hr fluoxetine 20 mg capsule 60 mg PO DAILY #90 cap 07/08/19 08/13/19 08/12/19 Rx paliperidone 6 mg tablet,extended 6 mg PO DAILY 30 Days #30 tab 07/08/19 08/13/19 08/12/19 Rx release 24 hr Allergies Allergy/AdvReac Type Severity Reaction Status Date / Time adhesive Allergy ALGY-Rash Verified 08/06/19 10:58 nitrofurantoin Allergy Unknown Verified 08/06/19 10:58 [From Macrobid] Penicillins Allergy Unknown Verified 08/06/19 10:58 PFSH NPU PFSH: Medical History Constipation H/O swallowed foreign body Hypothyroidism Major depressive disorder, 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 No abnormal movements except for psychomotor retardation. Semi-cooperative with exam in no acute distress. Speech was decreased rate and volume. Mood described as depressed; affect subdued. Thought process, linear. Thought content: patient denied any homicidal ideation, but endorsed suicidal ideations, there were no delusions reported or noted, patient endorsed auditory or but denied visual hallucinations. Attention and concentration were limited, and memory was unreliable. She is alert and oriented times three. Insight and judgment are impaired. Impulse control is limited.Intellectual ability is impaired. Vitals/I&O/Wt Last Vital Signs Temp 98.3 F 08/13/19 07:01 Pulse 83 08/13/19 07:01 Resp 16 08/13/19 07:01 BP 104/79 08/13/19 07:01 Pulse Ox 99 08/13/19 07:01 Weight last 48 hrs Weight 77.111 kg Data NPU : 08/13/19 07:25 08/13/19 07:25 A&P Assessment and plan (1) Suicidal ideation: Status: Acute (2) Borderline personality disorder: Status: Acute (3) Major depressive disorder, recurrent severe without psychotic features: Status: Acute (4) Mild intellectual disabilities: Status: Acute (5) Post-traumatic stress disorder, chronic: Status: Acute Additional A&P Information This is a 34-year-old white female with a long history of PTSD, borderline personality disorder and poor impulse control with intellectual disability mild versus moderate who presents as she normally does not endorsing suicidal thoughts and reporting that she is hearing voices without any affective of change to accompany her report. 1. Continue current medication. 2. We will consider increasing her Depakote, but truly feel this likely represents boredom with her facility. 3. Continue to 15-minute checks for safety. 4. We will try to make this as quick as possible with growing concerns that she comes here as a break from her facility and do not want to encourage this use of this resource. Involuntary Hold Information 96 Hour Hold: 96 Hour Involuntary Admission: Yes 96 Hour Hold Ending Date: 08/19/19 96 Hour Hold Ending Time: 07:00 Attestations NPU Medical Necessity Statement*: Inpatient hospitalization is medically necessary and the clinically appropriate intervention at this time. We will monitor her medication and consider changes where appropriate. She will be in the hospital for over 2 midnights. Likely length of stay 3-5 days. 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
[2019-08-13 21:12] VITALS: BP 100/65; PULSE 91; RESP 16; TEMP 37.1; O2SAT 97
[2019-08-13] MEDS: hyDROXYzine 25 mg Capsule 50 MG PO (21:12)
[2019-08-13] MEDS: divalproex ER 250 mg Tablet (24H) PO (21:12)
[2019-08-13] MEDS: topiramate 100 mg Tablet PO (21:12)
[2019-08-13] MEDS: trazodone 50 mg Tablet PO (21:12)
--- NOTE | 2019-08-14 | PC.NURSE ---
Pt was given scheduled Depakote and topamax and PRN Trazodone and vistaril per pt request.
[2019-08-14 06:00] VITALS: BP 115/74; PULSE 92; RESP 17; TEMP 36.9; O2SAT 97
[2019-08-14] MEDS: levothyroxine 100 mcg Tablet PO (09:14)
[2019-08-14] MEDS: paliperidone ER 6 mg Tablet PO (09:14)
[2019-08-14] MEDS: fluoxetine 20 mg Capsule 60 MG PO (09:14)
[2019-08-14 14:00] VITALS: BP 100/64; PULSE 89; RESP 18; TEMP 36.9; O2SAT 98
--- NOTE | 2019-08-14 17:27 | P.PN_ITS ---
Subjective NPU Subjective: Interval history: Shelby presented today reporting that she is still hearing voices and is basically isolative and staying in her bed. We discussed her medication and that we would consider increasing her Depakote possibly. She really had no other comments to make. She is mostly laying in bed and saying that she is not ready to go home. Mental Status Exam MSE Comments: This is a well-nourished, well-developed, white female, with adequate dress, limited grooming, and eye contact. No abnormal movements except for psychomotor retardation. Semi-cooperative with exam in no acute distress. Speech was decreased rate and volume. Mood described as suicidal; affect subdued. Thought process, linear. Thought content: patient denied any homicidal ideation, but endorsed suicidal ideations, there were no delusions reported or noted, patient endorsed auditory or but denied visual hallucinations. Attention and concentration were limited, and memory was unreliable. She is alert and oriented times three. Insight and judgment are impaired. Impulse control is limited.Intellectual ability is impaired. Vitals/I&O/Wt Last Vital Signs Temp 98.4 F 08/14/19 06:00 Pulse 92 08/14/19 06:00 Resp 17 08/14/19 06:00 BP 115/74 08/14/19 06:00 Pulse Ox 97 08/14/19 06:00 Data NPU : 08/13/19 07:25 08/13/19 07:25 A&P Additional A&P Information (1) Suicidal ideation: (2) Borderline personality disorder: (3) Major depressive disorder, recurrent severe without psychotic features: (4) Mild intellectual disabilities: (5) Post-traumatic stress disorder, chronic: This is a 34-year-old white female with a long history of PTSD, borderline personality disorder and poor impulse control with intellectual disability mild versus moderate who presents as she normally does not endorsing suicidal thoughts and reporting that she is hearing voices without any affective of change to accompany her report. 1. Continue current medication. 2. We will increasing the Depakote to 500 mg daily 3. Continue to 15-minute checks for safety. 4. We will try to make this as quick as possible with growing concerns that she comes here as a break from her facility and do not want to encourage this use of this resource. Involuntary Hold Information 96 Hour Hold: 96 Hour Involuntary Admission: Yes 96 Hour Hold Ending Date: 08/19/19 96 Hour Hold Ending Time: 07:00 Attestations NPU Medical Necessity Statement*: Inpatient hospitalization is medically necessary and the clinically appropriate intervention at this time. We will monitor her medication and consider changes where appropriate. Likely length of stay 2- 4days. Coding Level of Care Code Acute Resource Manager for Lasha Turner
[2019-08-14] MEDS: hyDROXYzine 25 mg Capsule 50 MG PO (20:55)
[2019-08-14] MEDS: divalproex ER 250 mg Tablet (24H) PO (20:57)
[2019-08-14] MEDS: topiramate 100 mg Tablet PO (20:57)
[2019-08-14] MEDS: trazodone 50 mg Tablet PO (20:58)
[2019-08-14 22:00] VITALS: BP 96/64; PULSE 98; RESP 22; TEMP 37.4; O2SAT 98
[2019-08-15 06:00] VITALS: BP 114/75; PULSE 112; RESP 16; TEMP 36.8; O2SAT 97
[2019-08-15] MEDS: paliperidone ER 6 mg Tablet PO (08:49)
[2019-08-15] MEDS: levothyroxine 100 mcg Tablet PO (08:49)
[2019-08-15] MEDS: fluoxetine 20 mg Capsule 60 MG PO (08:49)
[2019-08-15] MEDS: divalproex ER 250 mg Tablet (24H) PO (08:49)
[2019-08-15 13:10] VITALS: BP 206/71; PULSE 89; RESP 18; TEMP 36.3; O2SAT 99
--- NOTE | 2019-08-15 14:05 | P.PN_ITS ---
Subjective NPU Subjective: Interval history: Shelby presents today reporting that she is still hearing voices. We had a fairly lengthy discussion about how some people who ultimately have schizophrenia and hear voices, once they have gotten to a point where they are taking medication and doing better, begin to not shoot for zero voices but to be able to manage the voices and understand what they are. We discussed her medications and overall treatment. We did increase her Depakote and we will monitor that moving forward. She endorsed an openness to the possibility of discharge tomorrow, and we agreed that we would see how she was doing overall at that point. Mental Status Exam MSE Comments: This is a well-nourished, well-developed, white female, with adequate dress, grooming, and limited eye contact. No abnormal movements except for mild psychomotor retardation. Cooperative with exam in no acute distress. Speech was decreased rate and volume. Mood described as ?I hear voices?; affect slightly subdued. Thought process, linear. Thought content: patient denied any suicidal or homicidal ideation, there were no delusions reported or noted, patient denied any auditory or visual hallucinations. Attention, concentration, and memory appeared intact but were not formally tested. Alert and oriented times three. Insight and judgment are limited versus impaired. Intellectual ability is impaired. Vitals/I&O/Wt Last Vital Signs Temp 97.8 F 08/15/19 22:00 Pulse 89 08/15/19 22:00 Resp 18 08/15/19 22:00 BP 110/75 08/15/19 22:00 Pulse Ox 95 08/15/19 22:00 Data NPU : 08/13/19 07:25 08/13/19 07:25 A&P Additional A&P Information (1) Suicidal ideation: (2) Borderline personality disorder: (3) Major depressive disorder, recurrent severe without psychotic features: (4) Mild intellectual disabilities: (5) Post-traumatic stress disorder, chronic: This is a 34-year-old white female with a long history of PTSD, borderline personality disorder and poor impulse control with intellectual disability mild versus moderate who presents as she normally does not endorsing suicidal thoughts and reporting that she is hearing voices without any affective of change to accompany her report. 1. Continue current medication. 2. We will increasing the Depakote to 500 mg daily 3. Continue to 15-minute checks for safety. 4. We will try to make this as quick as possible with growing concerns that she comes here as a break from her facility and do not want to encourage this use of this resource. Involuntary Hold Information 96 Hour Hold: 96 Hour Involuntary Admission: Yes 96 Hour Hold Ending Date: 08/19/19 96 Hour Hold Ending Time: 07:00 Attestations NPU Medical Necessity Statement*: Inpatient hospitalization is medically necessary and the clinically appropriate intervention at this time. We will monitor her medication and consider changes where appropriate. Likely length of stay 1-3 days.We will consider discharge tomorrow. Coding Level of Care Code Acute Cracker And Cookie Machine Operator for Lasha Turner
[2019-08-15] MEDS: trazodone 50 mg Tablet PO (21:44)
[2019-08-15] MEDS: topiramate 100 mg Tablet PO (21:44)
[2019-08-15] MEDS: divalproex ER 250 mg Tablet (24H) 500 MG PO (21:44)
--- NOTE | 2019-08-15 21:44 | PC.NURSE ---
PRN TRAZODONE PT REQUESTING SLEEP AID. ADMINISTERED TRAZODONE 50 MG PO. WILL MONITOR FOR MEDICATION EFFECTIVENESS.
[2019-08-15 22:00] VITALS: BP 110/75; PULSE 89; RESP 18; TEMP 36.6; O2SAT 95
[2019-08-16 06:00] VITALS: BP 99/63; PULSE 109; RESP 21; TEMP 36.6; O2SAT 97
[2019-08-16] MEDS: levothyroxine 100 mcg Tablet PO (09:05)
[2019-08-16] MEDS: fluoxetine 20 mg Capsule 60 MG PO (09:05)
[2019-08-16] MEDS: paliperidone ER 6 mg Tablet PO (09:06)
--- NOTE | 2019-08-16 09:40 | PM.NDC ---
Diagnoses at Discharge Discharge Diagnosis (1) Suicidal ideation: Status: Resolved (2) Borderline personality disorder: Status: Acute (3) Major depressive disorder, recurrent severe without psychotic features: Status: Acute (4) Mild intellectual disabilities: Status: Acute (5) Post-traumatic stress disorder, chronic: Status: Acute Reason for Visit Reason for Visit: SI Brief History: History of Present Illness Shelby Cherry is a 34 year old female who presented to the emergency room endorsing a plan too kill herself. She endorsed depression and inability to contract for safety. She was admitted to the neuropsychiatric unit for definitive treatment of those issues. Today she reports that she feels horrible and she is hearing voices and she does not think she is going to get better. This is very much in keeping with her MO which often appears to fall in line with a lack of desire of being at the [facility]. Her last hospitalization about 6 weeks ago she swallowed a tach and came to the unit and basically each day reported hearing voices but did not appear to be attending to internal stimuli or having any cognitive expression of this statement she continues to make. She has significant intellectual disability and clear cluster B pathology lacking significant coping skills. We reviewed her last hospitalizations and she agreed that there were not substantive changes in her psychosocial circumstances so a excerpt of her last stay is included below. Per her 06/24/2019 [facility] [place] eval: History of Present Illness Shelby Cherry is a 34 year old female who presented to the emergency room having swallowed a tack after a conflict with a housemate. She was admitted for definitive treatment with medical follow-up for the swallowed tack. She was admitted to the neuro-psych unit with much of the same presentation as she did on October 08, 2018, also swallowing a nail/tack at that time and endorsing that she was having significant frustration and difficulty with people at her [facility]. Initially she endorsed that things had gotten really bad with her hearing voices and things of that nature, however conversations with her ch[facility] did not create the same story. We discussed the risks, benefits, and alternatives of possibly adding medication, but wanted to observe for a day to see if this was just a Cluster B flareup. Excerpts from her last hospitalization are included below as there have been no significant changes in her psychosocial circumstances. Per recent [facility] [place] d/c summary: History of Present Illness Date of Service: Oct 08, 2018 Copies to: Dwayne Sharma MD ; Chief Complaint: Suicidal ideation, swallowed thumbtack HPI: Patient is a 33-year-old female with a past medical history of seizure disorder and intellectual disability that presented to the emergency department for suicidal ideation. Patient reported that she didn't want to live anymore and she swallowed a thumb tack. Patient lives in assisted living. Had been doing well prior to this episode. Denies any recent illness, no fevers or chills. Caregiver is at bedside Allergies: Coded Allergies: AMOXICILLIN (Unverified Allergy, Unknown, RASH, 01/03/08) PENICILLINS (Unverified Allergy, Unknown, UNKNOWN, 03/14/09) CAREGIVER UNSURE OF REACTION Uncoded Allergies: BAND AIDS (Allergy, Intermediate, RASH, ITCH, 06/11/07) DETERGENTS (Allergy, Unknown, RASH, 01/03/08) Home Meds: Home Medications: Active Reported Levothroid (Levothyroxine Sodium) 100 Mcg Tablet 100 Mcg PO DAILY @[address] (Divalproex Sodium) 250 Mg Tablet.dr 250 Mg PO HS @20:00 Depakote ER (Divalproex Sodium) 500 Mg Tab.sr.24h 500 Mg PO BID @ 8 AND 20:00 [Daysee] 1 Tab PO DAILY @ 8 Topamax (Topiramate) 100 Mg Tablet 100 Mg PO HS @20:00 Prozac Cap (Fluoxetine HCl) 20 Mg Tablet 40 Mg PO DAILY @8 Topamax Tab (Topiramate) 200 Mg Tablet 200 Mg PO DAILY @8 Past Medical History Past Medical History Past Medical History: Intellectual disability Seizure disorder Depression Other Surgical History: Cholecystectomy Other Family Medical History: Family history unknown Other Past Social History: Patient lives at an assisted living facility Tobacco: Denies Alcohol: Denies Illicit drug use: Denies Hospital Course: Shelby presented to the hospital secondary to swallowing a thumb tack. After evaluation for medical and surgical management of the ingestion, she was transferred to the psychiatric unit secondary to continue reports of lethality. Once on the unit she described concerns about the isolation and lack of camaraderie that she experienced that her structured living/[facility] environment. Her guardian was contacted and ultimately she was able to gain some acceptance of her situation and limited options from a standpoint of living arrangements after discharge. She slowly acclimated to the individual, group and milieu therapies provided. She was continued on her home medications without incident. She demonstrated some clear cluster B traits. And on the day of discharge she seemed to miraculously better. Routine laboratory studies were obtained which were within normal limits except for some outliers. These can be seen below. Additionally a routine general medical evaluation was conducted which was within normal limits and revealed no acute processes except for the thumb tack which she passed. At the time of discharge her mood had improved, she was absent lethality, and reported a desire to continue her treatment as an outpatient with a commitment to not repeating these behaviors.. She had obtained all the benefit he could from the inpatient environment, so she was discharged. Hospital Course Hospital Course Shelby presented to the emergency department reporting depression and suicidal thoughts for 2 days with a plan. She was admitted to the neuropsychiatric unit for definitive treatment of those issues. On the unit she slowly acclimated to the individual, group and milieu therapies provided. She continued to endorse suicidal thoughts which is generally code for her or she does not want to go back to her residence. We did increase her evening Depakote to 500 mg p.o. nightly and she improved on that change. During the hospitalization there were routine laboratory studies which were within normal limits except for a few outliers. Additionally there was a general medical evaluation which was also within normal limits and revealed no new acute processes. Discharge Summary At the time of discharge, there was no endorse lethality and psychosis was denied. There was a plan to follow-up with the outpatient recommendations. Evaluation revealed no credible lethality and the maximum benefit from an inpatient hospitalization was achieved the patient was discharged. Involuntary Hold Information 96 Hour Hold: 96 Hour Involuntary Admission: Yes 96 Hour Hold Ending Date: 08/19/19 96 Hour Hold Ending Time: 07:00 Mental Status Exam MSE Comments: This is a well-nourished, well-developed, white female, with adequate dress, grooming, and eye contact. No abnormal movements except for mild psychomotor retardation. Cooperative with exam in no acute distress. Speech was decreased rate and volume, dysarthric and child-like. Mood described as I'm good I'm ready to go back; affect congruent. Thought process, linear. Thought content: patient denied any suicidal or homicidal ideation, there were no delusions reported or noted, patient denied any auditory or visual hallucinations. Attention, concentration, and memory appeared intact but were not formally tested. Alert and oriented times three. Insight and judgment are limited versus impaired. Intellectual ability is impaired. Discharge Data Vitals: Last Vital Signs Temp 97.9 F 08/16/19 06:00 Pulse 109 H 08/16/19 06:00 Resp 21 H 08/16/19 06:00 BP 99/63 08/16/19 06:00 Pulse Ox 97 08/16/19 06:00 Discharge Plan Discharge Patient Disposition: Home, Self-Care Condition: Stable Prescriptions: New trazodone 50 mg Tablet 50 mg PO BEDTIME PRN (Reason: Sleep) 30 Days Qty: 30 RF: 1 hydroxyzine pamoate 25 mg Capsule 50 mg PO Q6H PRN (Reason: Anxiety) 30 Days Qty: 180 RF: 1 Depakote ER 250 mg Tablet Extended Release 24 Hr 500 mg PO BEDTIME 30 Days Qty: 30 RF: 1 Continued acetaminophen 325 mg capsule 650 mg PO Q6H PRN (Reason: fever of 100.4 or greater and/or pain) Qty: 120 RF: 2 dextromethorphan-guaifenesin [Guaiasorb DM] 10-100 mg/5 mL liquid 10 ml PO Q6H PRN (Reason: cough) Qty: 120 RF: 2 fluoxetine [Prozac] 20 mg capsule 60 mg PO DAILY Qty: 90 RF: 2 paliperidone 6 mg tablet extended release 24hr 6 mg PO DAILY 30 Days Qty: 30 RF: 1 polyethylene glycol 3350 [Miralax] 17 gram/dose powder 17 gm PO DAILY PRN (Reason: constipation) Qty: 238 RF: 2 topiramate 100 mg Tablet 100 mg PO BEDTIME 30 Days Qty: 30 RF: 1 L norgest/e.estradiol-e.estrad [Camrese] 0.15 mg-30 mcg (84)/10 mcg (7) tablets,dose pack,3 month 1 tab PO DAILY 30 Days Qty: 30 RF: 1 levothyroxine 100 mcg capsule 100 mcg PO DAILY 30 Days Qty: 30 RF: 1 Discontinued divalproex 250 mg tablet extended release 24 hr 250 mg PO BEDTIME 30 Days Qty: 30 RF: 1 No Action L norgest/e.estradiol-e.estrad [Camrese] 0.15 mg-30 mcg (84)/10 mcg (7) tablets,dose pack,3 month 1 tab PO DAILY RF: 0 Discharge Orders: Discharge Order (Routine); Ordered 08/16/19 Ordered By: Rome Kendall Referrals: Latricia Sanders PMHNP [Staff Physician] - 08/19/19 9:00 am (check on referral for individual therapy ) Discharge Diet: Regular Discharge Activity: Resume usual activity Patient Instructions: Hydroxyzine Hydrochloride (By mouth), Depression (DC) Discharge Date/Time: 08/16/19 12:00 Discharge Attestations NPU Time Spent in Discharge Care*: less than 30 min Specific Discharge Activities: Specific discharge activities: educating patient, discussing with rn case mgr/social workers/dc planners, documenting/other paperwork and evaluating patient/reviewing data Coding Level of Care Code Acute Communication Clerk for [facility] Fwd Diagnoses Suicidal ideation R45.851 Borderline personality disorder F60.3 Major depressive disorder, recurrent severe without psychotic features F33.2 Mild intellectual disabilities F70 Post-traumatic stress disorder, chronic F43.12
[2019-08-16 10:28] VITALS: BP 99/63; PULSE 109; RESP 21; TEMP 36.6; O2SAT 97
== END 2019-08-16 12:00 | disposition home or self-care (01) | DRG 885 ==
LOC: ER 07:33 → NP 08:10
PROVIDERS: Emergency Medicine; Admitting Provider Psychiatry & Neurology Psychiatry; Visit Provider Psychiatry & Neurology Psychiatry
DX: F33.2 Major depressive disorder, recurrent severe without psychotic features (principal); R45.851 Suicidal ideations; F70 Mild intellectual disabilities; F60.3 Borderline personality disorder; F43.12 Post-traumatic stress disorder, chronic
CPT/HCPCS: 12345; 36415; 80053; 80306; 80307; 81025; 85025; 99284

== ENCOUNTER → 2019-08-19 07:41 | Outpatient (BNVA) | payer MEDICAID, SELFPAY | PROVIDERS: Visit Provider Nurse Practitioner | DX: F33.2 Major depressive disorder, recurrent severe without psychotic features (principal); F70 Mild intellectual disabilities; F60.3 Borderline personality disorder; F43.12 Post-traumatic stress disorder, chronic | CPT/HCPCS: 99214 ==

== ENCOUNTER 2019-09-01 18:04 | Emergency (ER) | payer MEDICAID, SELFPAY ==
--- NOTE | 2019-09-01 18:12 | XR_ITS ---
WS: [id number] Portable AP upright chest, 09/01/2019 Clinical Data: swallowed fb Comparison: Portable chest, 06/23/2019 Findings: No nodules, masses or effusions are seen. The heart is normal. The pulmonary vascularity is not increased. No pneumonia or pneumothorax is seen. There is a radiopaque item overlying the superi or aspect of the L2 vertebral body which could represent a foreign body in the stomach. The heart and lungs are not remarkable. XR/XR chest 1V portable 36049 Impression: Possible foreign body in distal stomach.
--- NOTE | 2019-09-01 18:12 | XR_ITS ---
WS: [id number] MARTA, 09/01/2019 Clinical Data: swallowed fb Comparison: None. Findings: No abnormal intraabdominal masses or calcifications are seen. There is no dilatated small bowel or ev idence of obstruction. There is a probable radiopaque foreign body which appears to be a clip in the distal stomach. There i s a large amount of fecal material throughout colon. No other radiopaque foreign bodies are seen. XR/XR KUB 11819 Impression: Possible radiopaque foreign body in distal stomach.
[2019-09-01 18:16] VITALS: BP 117/80; PULSE 105; RESP 18; TEMP 36.9; O2SAT 98; BMI 28.2
--- NOTE | 2019-09-01 18:18 | ED_ITS ---
HPI - Psych General: Chief Complaint: Psychiatric Symptoms Stated Complaint: SWOLLWED FB Time Seen by Provider: 09/01/19 18:13 Source: patient Mode of arrival: ambulatory Limitations: no limitations History of Present Illness: HPI Narrative: 34-year-old female who states she has had suicidal ideations and swallowed a paperclip at 4 PM and attempt to kill herself. Patient states she has had suicidal thoughts for days. She denies any worsening or improving factors. Denies any vomiting. She denies any abdominal pain currently. Associated symptoms: Reports depression and suicidal ideation Review of Systems Const: Denies: fever(s), chills, body aches or change in appetite Eyes: Denies: blurry vision or eye discomfort ENMT: Denies: throat pain or dental pain Card: Denies: chest pain Resp: Denies: dyspnea GI: Denies: abdominal pain, nausea, vomiting or diarrhea : Denies: dysuria Musc: Denies: neck pain or back pain Skin/Breast: Denies: rash Neuro: Denies: headache(s) Psych: Reports: depression and suicidal ideation Hayden/Lymph: Denies: easy bruising All/Imm: Denies: urticaria PFSH ED PFSH: Medical History Constipation H/O swallowed foreign body Hypothyroidism Major depressive disorder, 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 Post-traumatic stress disorder, chronic Social History Smoking and tobacco status: never smoked Alcohol intake: never Caregiver/support person: Yes Lives independently: No Household members: other Details: LIVES IN A HALFWAY Housing: Assisted Living Facility Marital status: Single Current occupational status: disabled Current gender identity: Female Female Reproductive History: Date of last menstrual period: 06/12/19 Physical Exam Const: COMMON NORMALS: no acute distress, patient oriented x3 and healthy appearing HENMT: COMMON NORMALS: normocephalic and atraumatic HEAD & SCALP: normocephalic and atraumatic Eye: COMMON NORMALS: Equal, round and reactive pupils present and EOMs intact bilaterally PUPIL: Yes Equal, round and reactive pupils present Neck/C-Spine: COMMON NORMALS: full ROM and supple Chest: COMMONS NORMALS: normal inspection of the chest and normal palpation of entire chest wall Resp: COMMON NORMALS: normal respiratory effort, No retractions, No use of accessory muscles and clear to auscultation bilaterally AUSCULTATION: clear to auscultation bilaterally Cardio: COMMON NORMALS: regular rate, regular rhythm and No murmurs present (Cardio) RATE: regular rate RHYTHM: regular rhythm GI: COMMON NORMALS: Normal to inspection, nondistended, normoactive bowel sounds present, Soft to palpation, non-tender and no masses PALPATION: Yes Soft to palpation Extremity: COMMON NORMALS: normal to inspection and full ROM Neuro: COMMON NORMALS: patient oriented x3, moves all extremities and no focal motor deficits Psych: COMMON NORMALS: mental status grossly normal and cooperative MOOD & AFFECT: Yes depressed mood THOUGHT CONTENT: Yes Suicidality present Skin: COMMON NORMALS: no rashes or lesions noted and no wounds GENERAL SKIN EXAM: no rashes or lesions noted MDM - Psych MDM Narrative: Medical decision making narrative: Patient presents here after swallowing a clip trying to kill herself. Clip is noted in the stomach on x- ray. She should be able to have no problems passing this. I would recommend repeat x-ray in 1 to 2 weeks to ensure passage. Patient's medically cleared and stable for admission to psychiatric facility. Patient accepted to [facility]. Is further at this time. Lab Data: Labs: Lab Results 09/01/19 09/01/19 09/01/19 Range/Units 18:35 18:35 19:20 WBC 17.1 H (4.0-10.0) 10^3/ uL RBC 4.14 (4.1-5.3) 10^6/u L Hgb 12.6 (11.5-15.3) g/dL Hct 39.8 (37.0-47.0) % MCV 96.1 (81-99) fL MCH 30.4 (28.0-34.0) pg MCHC 31.7 (30.0-36.0) g/dL RDW 13.2 (12.1-15.1) % Plt Count 422 H (130-400) 10^3/c mm MPV 10.1 (7.4-10.4) fL Neut % (Auto) 61.5 % Lymph % (Auto) 30.0 % Desoto % (Auto) 7.5 % Eos % (Auto) 0.2 % Baso % (Auto) 0.4 % Neut # (Auto) 10.50 H (1.8-7.7) 10^3/u L Lymph # (Auto) 5.1 H (0.8-4.8) 10^3/u L [place]oto # (Auto) 1.3 H (0.2-0.9) 10^3/u L Eos # (Auto) 0.0 (0.0-0.8) 10^3/u L Baso # (Auto) 0.1 (0.0-0.1) 10^3/u L Nucleated RBC % (a uto) 0 % Nucleated RBCs # 0.0 /100WBC Sodium 136 (136-145) mmol/L Potassium 3.6 (3.5-5.1) mmol/L Chloride 102 (98-107) mmol/L Carbon Dioxide 20 L (22-29) mmol/L Anion Gap 17.6 (5-19) BUN 20 (6-20) mg/dL Creatinine 0.7 (0.5-0.9) mg/dL GFR Calculation 94.7 (90-130) mL/min Glucose 87 (65-115) mg/dL Calculated Osmolal ity 278 L (285-295) mOsm/k g Calcium 9.8 (8.5-10.5) mg/dL Total Bilirubin 0.2 (0.15-1.2) mg/dL AST 15 (0-32) U/L ALT 14 (0-33) U/L Alkaline Phosphata se 48 (35-105) IU/L Total Protein 7.5 (6.6-8.7) g/dL Albumin 4.1 (3.5-5.2) g/dL Globulin 3.4 (1.3-4.6) g/dL TSH 3.62 (0.27-4.20) uIU/ mL HCG, Qual (Negative) Salicylates < 0.3 L (3-10) mg/dL Urine Opiates Scre en Negative (Negative) ng/mL Acetaminophen < 5.0 L (10-30) ug/mL Ur Barbiturates Sc reen Negative (Negative) ng/mL Valproic Acid 27.7 L (50-100) ug/mL Ur Phencyclidine S crn Negative (Negative) ng/mL Ur Amphetamines Sc reen Negative (Negative) ng/mL U Benzodiazepines Scrn Positive H (Negative) ng/mL Urine Cocaine Scre en Negative (Negative) ng/mL U Marijuana (THC) Screen Negative (Negative) ng/mL Ethyl Alcohol < 10 (0-10) mg/dL 09/01/19 Range/Units 19:20 WBC (4.0-10.0) 10^3/ uL RBC (4.1-5.3) 10^6/u L Hgb (11.5-15.3) g/dL Hct (37.0-47.0) % MCV (81-99) fL MCH (28.0-34.0) pg MCHC (30.0-36.0) g/dL RDW (12.1-15.1) % Plt Count (130-400) 10^3/c mm MPV (7.4-10.4) fL Neut % (Auto) % Lymph % (Auto) % Desoto % (Auto) % Eos % (Auto) % Baso % (Auto) % Neut # (Auto) (1.8-7.7) 10^3/u L Lymph # (Auto) (0.8-4.8) 10^3/u L [place]oto # (Auto) (0.2-0.9) 10^3/u L Eos # (Auto) (0.0-0.8) 10^3/u L Baso # (Auto) (0.0-0.1) 10^3/u L Nucleated RBC % (a uto) % Nucleated RBCs # /100WBC Sodium (136-145) mmol/L Potassium (3.5-5.1) mmol/L Chloride (98-107) mmol/L Carbon Dioxide (22-29) mmol/L Anion Gap (5-19) BUN (6-20) mg/dL Creatinine (0.5-0.9) mg/dL GFR Calculation (90-130) mL/min Glucose (65-115) mg/dL Calculated Osmolal ity (285-295) mOsm/k g Calcium (8.5-10.5) mg/dL Total Bilirubin (0.15-1.2) mg/dL AST (0-32) U/L ALT (0-33) U/L Alkaline Phosphata se (35-105) IU/L Total Protein (6.6-8.7) g/dL Albumin (3.5-5.2) g/dL Globulin (1.3-4.6) g/dL TSH (0.27-4.20) uIU/ mL HCG, Qual Negative (Negative) Salicylates (3-10) mg/dL Urine Opiates Scre en (Negative) ng/mL Acetaminophen (10-30) ug/mL Ur Barbiturates Sc reen (Negative) ng/mL Valproic Acid (50-100) ug/mL Ur Phencyclidine S crn (Negative) ng/mL Ur Amphetamines Sc reen (Negative) ng/mL U Benzodiazepines Scrn (Negative) ng/mL Urine Cocaine Scre en (Negative) ng/mL U Marijuana (THC) Screen (Negative) ng/mL Ethyl Alcohol (0-10) mg/dL Imaging Data^: KUB: Attestation: I personally reviewed and interpreted this imaging study as follows: My impression: foreign body noted in stomach Discharge Plan Discharge Patient Disposition: Xfer Other Clinical Impression: Suicidal ideation Foreign body ingestion Qualifiers: Encounter type: initial encounter Qualified Code(s): T18.9XXA - Foreign body of alimentary tract, part unspecified, initial encounter Condition: Stable Referrals: Ольга Quarles FNP [Primary Care Provider] - Coding Level of Care Code ED Grinder Needle Tip for Lasha Fwd Exam Comprehensive
[2019-09-01 18:42] LABS: Basophils # 0.1 10^3/uL (0.0-0.1); Basophils % 0.4 %; Eosinophils % 0.2 %; Hematocrit 39.8 % (37.0-47.0); Hemoglobin 12.6 g/dL (11.5-15.3); Lymphocytes # 5.1 10^3/uL (0.8-4.8); Mean Corpuscular HGB Conc 31.7 g/dL (30.0-36.0); Mean Corpuscular Hemoglobin 30.4 pg (28.0-34.0); Mean Corpuscular Volume 96.1 fL (81-99); Mean Platelet Volume 10.1 fL (7.4-10.4); Monocytes # 1.3 10^3/uL (0.2-0.9); Monocytes % 7.5 %; Neutrophils % 61.5 %; Nucleated Red Blood Cells % 0 %; Platelet Count 422 10^3/cmm (130-400); Red Blood Count 4.14 10^6/uL (4.1-5.3); Red Cell Distribution Width 13.2 % (12.1-15.1); White Blood Count 17.1 10^3/uL (4.0-10.0)
[2019-09-01 19:07] LABS: Alanine Aminotransferase 14 U/L (0-33); Albumin Level 4.1 g/dL (3.5-5.2); Alkaline Phosphatase 48 IU/L (35-105); Anion Gap 17.6 (5-19); Aspartate Amino Transferase 15 U/L (0-32); Blood Urea Nitrogen 20 mg/dL (6-20); Calcium 9.8 mg/dL (8.5-10.5); Carbon Dioxide 20 mmol/L (22-29); Chloride 102 mmol/L (98-107); Creatinine Clr Calc Pharmacy 118.0975; Globulin 3.4 g/dL (1.3-4.6); Glomerular Filtration Rate 94.7 mL/min (90-130); Glucose 87 mg/dL (65-115); Osmolality Calculated 278 mOsm/kg (285-295); Potassium 3.6 mmol/L (3.5-5.1); Sodium 136 mmol/L (136-145); Thyroid Stimulating Hormone 3.62 uIU/mL (0.27-4.20); Total Bilirubin 0.2 mg/dL (0.15-1.2); Total Protein 7.5 g/dL (6.6-8.7); Valproic Acid Level 27.7 ug/mL (50-100)
[2019-09-01 19:08] LABS: Acetaminophen < 5.0 ug/mL (10-30); Alcohol Level < 10 mg/dL (0-10); Salicylate < 0.3 mg/dL (3-10)
[2019-09-01 19:42] LABS: Amphetamines Screen Urine Negative (Negative); Barbiturates Screen Urine Negative (Negative); Benzodiazepines Screen Urine Positive (Negative); Cocaine Screen Urine Negative (Negative); Opiate Screen Urine Negative (Negative); PCP Screen Urine Negative (Negative); THC Screen Urine Negative (Negative)
[2019-09-01 19:59] LABS: HCG Qualitative Urine. Negative (Negative)
--- NOTE | 2019-09-01 21:28 | PC.NURSE ---
Addendum entered by Brooke Mcknight RN 09/02/19 08:13: DPOA Patient's DPOA called at 1914 after staff contacted her, Sana ERICKSON stated we can absolutely transfer patient to [facility] in [place], [place] or where ever is accepting Original Note: DPOA Patient's DPOA called at 1914 after staff contacted her, Sana ERICKSON stated we can absolutely transfer patient to [facility] in [place], [place]
[2019-09-01] MEDS: topiramate 100 mg Tablet PO (23:09)
[2019-09-01] MEDS: divalproex ER 500 mg Tablet (24H) PO (23:09)
[2019-09-02 03:00] VITALS: BP 119/72; PULSE 112; RESP 18; TEMP 36.7
[2019-09-02 06:51] VITALS: BP 103/63; PULSE 75; RESP 16; O2SAT 98
[2019-09-02 09:40] VITALS: BP 116/83; PULSE 98; RESP 14; O2SAT 98
== END 2019-09-02 09:41 | disposition other institution (70) ==
PROVIDERS: Emergency Provider Emergency Medicine; PCP Nurse Practitioner Family
DX: T18.9XXA Foreign body of alimentary tract, part unspecified, initial encounter (principal); R45.851 Suicidal ideations; X83.8XXA Intentional self-harm by other specified means, initial encounter
CPT/HCPCS: 12345; 71045; 74018; 80053; 80164; 80306; 80307; 81025; 84443; 85025; 99284; 99285

== ENCOUNTER → 2019-09-10 09:40 | Outpatient (BNVA) | payer MEDICAID, SELFPAY | PROVIDERS: PCP Nurse Practitioner Family; Visit Provider Nurse Practitioner Family | DX: T18.9XXA Foreign body of alimentary tract, part unspecified, initial encounter (principal); X58.XXXA Exposure to other specified factors, initial encounter | CPT/HCPCS: 74019 ==

== ENCOUNTER → 2019-09-16 07:34 | Outpatient (BNVA) | payer MEDICAID, SELFPAY | PROVIDERS: PCP Nurse Practitioner Family; Visit Provider Nurse Practitioner | DX: F60.3 Borderline personality disorder (principal); F33.2 Major depressive disorder, recurrent severe without psychotic features; F70 Mild intellectual disabilities; F43.12 Post-traumatic stress disorder, chronic | CPT/HCPCS: 99214 ==

== ENCOUNTER 2019-09-22 20:35 | Inpatient (IN) | payer MEDICAID, SELFPAY ==
[2019-09-22 20:50] VITALS: BP 125/69; PULSE 97; RESP 18; TEMP 36.8; O2SAT 98; BMI 28.9
--- NOTE | 2019-09-22 21:10 | XR_ITS ---
WS: [id number] Abdomen series: PA CHEST AND 2 VIEWS OF THE ABDOMEN HISTORY: swallowed FB COMPARISON: 09/10/2019 Lung volumes are decreased. No lobar collapse. No foreign body identified. Normal bowel gas pattern. No foreign bodies. No calcifications. XR/XR acute abdomen series [id number] IMPRESSION: No radiopaque foreign body in the chest, abdomen or pelvis.
--- NOTE | 2019-09-22 21:11 | ECG_ITS ---
[facility] Test Date: 2019-09-22 Pat Name: Shelby Cherry Department: Room: Gender: Female Lpn Cma: : 1985 Requested By: Jeannette Sutton Order Number: [id number] Ewing MD: Claudio Szymanski M.D. Measurements Intervals [place] Rate: 85 P: 36 NH: 121 QRS: 22 QRSD: 77 T: 28 QT: 357 QTc: 427 Interpretive Statements SINUS RHYTHM MODERATE VOLTAGE CRITERIA FOR LVH, CONSIDER NORMAL VARIANT [MEETS CRITERIA IN ONE OF: R(aVL), S(V1), R(V5), R(V5/V6)+S(V1)] No previous ECG available for comparison Electronically Signed On 09-23-2019 9:36:10 CDT by Claudio Szymanski M.D. [email or web address]
[2019-09-22 21:27] LABS: Basophils # 0.1 10^3/uL (0.0-0.1); Basophils % 0.5 %; Eosinophils # 0.1 10^3/uL (0.0-0.8); Eosinophils % 0.5 %; Hematocrit 41.4 % (37.0-47.0); Hemoglobin 13.5 g/dL (11.5-15.3); Lymphocytes # 4.2 10^3/uL (0.8-4.8); Lymphocytes % 31.9 %; Mean Corpuscular HGB Conc 32.6 g/dL (30.0-36.0); Mean Corpuscular Hemoglobin 30.8 pg (28.0-34.0); Mean Corpuscular Volume 94.3 fL (81-99); Monocytes # 0.8 10^3/uL (0.2-0.9); Monocytes % 6.2 %; Neutrophils # 7.98 10^3/uL (1.8-7.7); Neutrophils % 60.5 %; Nucleated Red Blood Cells % 0 %; Platelet Count 379 10^3/cmm (130-400); Red Blood Count 4.39 10^6/uL (4.1-5.3); Red Cell Distribution Width 14.1 % (12.1-15.1); White Blood Count 13.2 10^3/uL (4.0-10.0)
[2019-09-22 21:37] LABS: INR 0.88 (0.8-1.2)
[2019-09-22 21:54] LABS: Alanine Aminotransferase 14 U/L (0-33); Albumin Level 4.2 g/dL (3.5-5.2); Alkaline Phosphatase 51 IU/L (35-105); Anion Gap 13.9 (5-19); Aspartate Amino Transferase 18 U/L (0-32); Blood Urea Nitrogen 22 mg/dL (6-20); Calcium 9.6 mg/dL (8.5-10.5); Carbon Dioxide 25 mmol/L (22-29); Chloride 102 mmol/L (98-107); Glomerular Filtration Rate 94.7 mL/min (90-130); Glucose 99 mg/dL (65-115); Osmolality Calculated 281 mOsm/kg (285-295); Potassium 3.9 mmol/L (3.5-5.1); Sodium 137 mmol/L (136-145); Thyroid Stimulating Hormone 3.83 uIU/mL (0.27-4.20); Total Bilirubin 0.2 mg/dL (0.15-1.2); Total Protein 8.2 g/dL (6.6-8.7)
[2019-09-22 21:56] LABS: Acetaminophen < 5.0 ug/mL (10-30); Alcohol Level < 10 mg/dL (0-10); Salicylate < 0.3 mg/dL (3-10)
[2019-09-22 21:56] LABS: HCG Qualitative Urine. Negative (Negative)
[2019-09-22 22:03] LABS: Amphetamines Screen Urine Negative (Negative); Barbiturates Screen Urine Negative (Negative); Benzodiazepines Screen Urine Positive (Negative); Cocaine Screen Urine Negative (Negative); Opiate Screen Urine Negative (Negative); PCP Screen Urine Negative (Negative); THC Screen Urine Negative (Negative)
--- NOTE | 2019-09-22 22:38 | W.ED.PSYCH ---
HPI - Psych General: Chief Complaint: Psychiatric Symptoms Stated Complaint: swallowed unknown object Time Seen by Provider: 09/22/19 21:10 Source: patient Mode of arrival: ambulatory Limitations: no limitations History of Present Illness: HPI Narrative: Shelby is a 34-year-old female who comes in after she swallowed a plastic piece from a toy game that is less than a size and diameter. Patient says she did this in an effort to hurt herself. She says that no one cares about her and that is why she feels depressed. Patient has history of previous suicide attempts. Patient is very quiet, seems simple and does not offer much in the way of details other than asking for herself to be admitted to the neuropsychiatric unit. Her subsystems engineer who is here with her confirms these facts. Review of Systems General: Reports: ROS unobtainable due to medical condition PFS ED PFSH: Medical History Constipation H/O swallowed foreign body Hypothyroidism Major depressive disorder, 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 Post-traumatic stress disorder, chronic Social History Smoking and tobacco status: never smoked Alcohol intake: never Caregiver/support person: Yes Lives independently: No Household members: other Details: LIVES IN A RESIDENTIAL Housing: Assisted Living Facility Marital status: Single Current occupational status: disabled Current gender identity: Female Female Reproductive History: Date of last menstrual period: 09/22/19 Physical Exam Const: COMMON NORMALS: no acute distress, patient oriented x3, no limitations, healthy appearing and well nourished GENERAL APPEARANCE: cooperative, well kempt and well developed HENMT: COMMON NORMALS: normocephalic, atraumatic, external ears normal, EAC's normal and Normal external nose present HEAD & SCALP: normal to inspection, normocephalic and atraumatic FACE & SINUS: normal facial exam and face symmetric NOSE: Normal external nose present and Normal nares present EXTERNAL EAR: Yes external ears normal EXTERNAL AUDITORY CANAL: EAC's normal MOUTH: Normal oral and palatal mucosa present, lip normal and tongue normal Eye: COMMON NORMALS: Equal, round and reactive pupils present and conjunctivae normal GENERAL EYE: appearance normal, both eyes and all related structures ALIGNMENT: Yes alignment normal PERIORBITAL: periorbital findings normal EYELID: eyelids normal CONJUNCTIVA: Yes conjunctivae normal SCLERA: sclerae normal PUPIL: Yes Equal, round and reactive pupils present Neck/C-Spine: COMMON NORMALS: full ROM, no lymphadenopathy, supple, no meningeal signs and no JVD GENERAL: Yes normal visual inspection and Yes trachea midline Chest: COMMONS NORMALS: normal inspection of the chest and normal palpation of entire chest wall Resp: COMMON NORMALS: normal respiratory effort, No retractions and No use of accessory muscles EFFORT & INSPECTION: Yes able to speak in complete sentences and Yes symmetric chest movement AUSCULTATION: no crackles, no rales, no rhonchi and no wheezes Cardio: COMMON NORMALS: no JVD, regular rate, regular rhythm, S1 normal heart sound present and S2 normal heart sound present RATE: regular rate RHYTHM: regular rhythm HEART SOUNDS: S1 normal heart sound present, S2 normal heart sound present, no click, no gallops, no murmurs, no rubs and abnormal split S2 GI: COMMON NORMALS: Soft to palpation and No hepatosplenomegaly present PALPATION: Yes Soft to palpation, No Tenderness to palpation present (GI), No Guarding due to palpation present (GI), No Rigid due to palpation, Yes No hepatosplenomegaly present, No Hernia present, No Palpable mass present and No Pulsatile mass present : COMMON NORMALS: Yes no CVA tenderness BLADDER/KIDNEY EXAM: Yes no CVA tenderness EXTERNAL FEMALE EXAM: No Hernia present Back/Pelvis: COMMON NORMALS: no CVA tenderness, thoracic and lumbar spine normal to inspection, no thoracic nor lumbar tenderness and thoraco-lumbar ROM normal Extremity: COMMON NORMALS: normal to inspection, full ROM, capillary refill normal, no joint enlargement, no clubbing, cyanosis or edema and no calf tenderness Neuro: COMMON NORMALS: patient oriented x3, CN's II-XII intact bilaterally, moves all extremities, no focal motor deficits and no sensory deficits noted MENINGEAL SIGNS: Yes no meningeal signs SPEECH: speech normal Psych: COMMON NORMALS: mental status grossly normal, Normal thought process present, cooperative, normal affect, speech normal and activity/motor behavior normal APPEARANCE: Yes well kempt SPEECH: Yes normal speech THOUGHT PROCESS: Normal thought process present Skin: COMMON NORMALS: no rashes or lesions noted, turgor normal, no jaundice, no petechiae and no mottling GENERAL SKIN EXAM: no rashes or lesions noted and turgor normal MDM - Psych MDM Narrative: Medical decision making narrative: The case was reviewed with Dr. Kendall and he agrees to admission. Further care will be dictated by him in the neuropsychiatric unit. Lab Data: Labs: Lab Results 09/22/19 09/22/19 09/22/19 Range/Units 21:21 21:21 21:21 WBC 13.2 H (4.0-10.0) 10^3/ uL RBC 4.39 (4.1-5.3) 10^6/u L Hgb 13.5 (11.5-15.3) g/dL Hct 41.4 (37.0-47.0) % MCV 94.3 (81-99) fL MCH 30.8 (28.0-34.0) pg MCHC 32.6 (30.0-36.0) g/dL RDW 14.1 (12.1-15.1) % Plt Count 379 (130-400) 10^3/c mm MPV 10.0 (7.4-10.4) fL Neut % (Auto) 60.5 % Lymph % (Auto) 31.9 % Edgar % (Auto) 6.2 % Eos % (Auto) 0.5 % Baso % (Auto) 0.5 % Neut # (Auto) 7.98 H (1.8-7.7) 10^3/u L Lymph # (Auto) 4.2 (0.8-4.8) 10^3/u L Edgar # (Auto) 0.8 (0.2-0.9) 10^3/u L Eos # (Auto) 0.1 (0.0-0.8) 10^3/u L Baso # (Auto) 0.1 (0.0-0.1) 10^3/u L Nucleated RBC % (a uto) 0 % Nucleated RBCs # 0.0 /100WBC PT 12.20 (10.5-13.3) SECO NDS INR 0.88 (0.8-1.2) Sodium 137 (136-145) mmol/L Potassium 3.9 (3.5-5.1) mmol/L Chloride 102 (98-107) mmol/L Carbon Dioxide 25 (22-29) mmol/L Anion Gap 13.9 (5-19) BUN 22 H (6-20) mg/dL Creatinine 0.7 (0.5-0.9) mg/dL GFR Calculation 94.7 (90-130) mL/min Glucose 99 (65-115) mg/dL Calculated Osmolal ity 281 L (285-295) mOsm/k g Calcium 9.6 (8.5-10.5) mg/dL Total Bilirubin 0.2 (0.15-1.2) mg/dL AST 18 (0-32) U/L ALT 14 (0-33) U/L Alkaline Phosphata se 51 (35-105) IU/L Total Protein 8.2 (6.6-8.7) g/dL Albumin 4.2 (3.5-5.2) g/dL Globulin 4.0 (1.3-4.6) g/dL TSH 3.83 (0.27-4.20) uIU/ mL HCG, Qual (Negative) Salicylates < 0.3 L (3-10) mg/dL Urine Opiates Scre en (Negative) ng/mL Acetaminophen < 5.0 L (10-30) ug/mL Ur Barbiturates Sc reen (Negative) ng/mL Ur Phencyclidine S crn (Negative) ng/mL Ur Amphetamines Sc reen (Negative) ng/mL U Benzodiazepines Scrn (Negative) ng/mL Urine Cocaine Scre en (Negative) ng/mL U Marijuana (THC) Screen (Negative) ng/mL Ethyl Alcohol < 10 (0-10) mg/dL 09/22/19 09/22/19 Range/Units 21:35 21:35 WBC (4.0-10.0) 10^3/ uL RBC (4.1-5.3) 10^6/u L Hgb (11.5-15.3) g/dL Hct (37.0-47.0) % MCV (81-99) fL MCH (28.0-34.0) pg MCHC (30.0-36.0) g/dL RDW (12.1-15.1) % Plt Count (130-400) 10^3/c mm MPV (7.4-10.4) fL Neut % (Auto) % Lymph % (Auto) % Edgar % (Auto) % Eos % (Auto) % Baso % (Auto) % Neut # (Auto) (1.8-7.7) 10^3/u L Lymph # (Auto) (0.8-4.8) 10^3/u L Edgar # (Auto) (0.2-0.9) 10^3/u L Eos # (Auto) (0.0-0.8) 10^3/u L Baso # (Auto) (0.0-0.1) 10^3/u L Nucleated RBC % (a uto) % Nucleated RBCs # /100WBC PT (10.5-13.3) SECO NDS INR (0.8-1.2) Sodium (136-145) mmol/L Potassium (3.5-5.1) mmol/L Chloride (98-107) mmol/L Carbon Dioxide (22-29) mmol/L Anion Gap (5-19) BUN (6-20) mg/dL Creatinine (0.5-0.9) mg/dL GFR Calculation (90-130) mL/min Glucose (65-115) mg/dL Calculated Osmolal ity (285-295) mOsm/k g Calcium (8.5-10.5) mg/dL Total Bilirubin (0.15-1.2) mg/dL AST (0-32) U/L ALT (0-33) U/L Alkaline Phosphata se (35-105) IU/L Total Protein (6.6-8.7) g/dL Albumin (3.5-5.2) g/dL Globulin (1.3-4.6) g/dL TSH (0.27-4.20) uIU/ mL HCG, Qual Negative (Negative) Salicylates (3-10) mg/dL Urine Opiates Scre en Negative (Negative) ng/mL Acetaminophen (10-30) ug/mL Ur Barbiturates Sc reen Negative (Negative) ng/mL Ur Phencyclidine S crn Negative (Negative) ng/mL Ur Amphetamines Sc reen Negative (Negative) ng/mL U Benzodiazepines Scrn Positive H (Negative) ng/mL Urine Cocaine Scre en Negative (Negative) ng/mL U Marijuana (THC) Screen Negative (Negative) ng/mL Ethyl Alcohol (0-10) mg/dL Discharge Plan Discharge Patient Disposition: Admitted As Inpatient Admit Provider: Rome Kendall Clinical Impression: Suicidal ideation Condition: Stable Interventions: ED Discharge Assessment Last Done: 09/22/19 23:05 ED Charges Last Done: 09/22/19 23:05 Discharge Date/Time: 09/22/19 23:06 Coding Level of Care Code ED Surgical Product Sales Consultant for Lasha Turner
--- NOTE | 2019-09-22 22:56 | PC.NURSE ---
patient assessment reviewed and agreed with
[2019-09-22 23:05] VITALS: BP 114/75; PULSE 78; RESP 16; O2SAT 93
[2019-09-22 23:15] LABS: Valproic Acid Level 19.8 ug/mL (50-100)
[2019-09-22 23:20] VITALS: BP 116/77; PULSE 89; RESP 18; TEMP 36.4; O2SAT 97
[2019-09-22 23:25] LABS: Carbamazepine Tegretol < 2.0 ug/mL (4.0-12.0); Phenytoin Dilantin < 0.8 ug/mL (10-20)
[2019-09-22 23:41] LABS: Lithium < 0.1 mmol/L (0.6-1.2)
[2019-09-23 06:00] VITALS: BP 111/76; PULSE 103; RESP 18; TEMP 36.7; O2SAT 95
[2019-09-23] MEDS: levothyroxine 100 mcg Tablet PO (08:42)
[2019-09-23] MEDS: fluoxetine 20 mg Capsule 60 MG PO (08:42)
[2019-09-23] MEDS: prazosin 1 mg Capsule 2 MG PO (08:42)
[2019-09-23] MEDS: ARIPiprazole 30 mg Tablet 15 MG PO (08:42)
--- NOTE | 2019-09-23 10:45 | PM.NHP ---
Providers/Chief Complaint Admitting Physician: Rome Kendall MD Primary Care Provider: JACKIE Beverly Chief Complaint: swallowed unknown object HPI NPU History of Present Illness Shelby Cherry is a 34 year old female with primary diagnoses of cognitive deficit and borderline personality disorder. She again presents to the emergency room for at least the third time in the past year after having swallowed a small object out of frustration with her living condition. In addition to her cognitive deficit, her verbal communication skills are limited. By her report, she is unhappy with her current living situation. She feels like they treat her badly though she denies any actual physical abuse. Her presentation today is almost identical to her last. She says that she is hearing voices that tell her to kill herself. However she is unable to define those voices. She cannot say whether there is one or many. She does not recognize the voice. She has no intent or plan to kill herself. However she does confirm the presence of persistent despondent and unhappiness with her living situation. She reports feelings of hopelessness and worthlessness. She is sad and blue on a daily basis. Laboratory Tests 09/01/19 09/22/19 09/22/19 18:35 21:21 21:35 TSH 3.83 Valproic Acid 27.7 L 19.8 L U Benzodiazepines Scrn Positive H ER physician note: Shelby is a 34-year-old female who comes in after she swallowed a plastic piece from a toy game that is less than a size and diameter. Patient says she did this in an effort to hurt herself. She says that no one cares about her and that is why she feels depressed. Patient has history of previous suicide attempts. Patient is very quiet, seems simple and does not offer much in the way of details other than asking for herself to be admitted to the neuropsychiatric unit. Her erp project manager who is here with her confirms these facts. Mental health history: From her admission on 24 Jun 2019: Shelby Cherry is a 34 year old female who presented to the emergency room having swallowed a tack after a conflict with a housemate. She was admitted for definitive treatment with medical follow-up for the swallowed tack. She was admitted to the neuro-psych unit with much of the same presentation as she did on October 08, 2018, also swallowing a nail/tack at that time and endorsing that she was having significant frustration and difficulty with people at her jail. Initially she endorsed that things had gotten really bad with her hearing voices and things of that nature, however conversations with her jail did not create the same story. We discussed the risks, benefits, and alternatives of possibly adding medication, but wanted to observe for a day to see if this was just a Cluster B flareup. Excerpts from her last hospitalization are included below as there have been no significant changes in her psychosocial circumstances. Per recent [facility] d/c summary: History of Present Illness Date of Service: Oct 08, 2018 Copies to: Dwayne Sharma MD ; Chief Complaint: Suicidal ideation, swallowed thumbtack HPI: Patient is a 33-year-old female with a past medical history of seizure disorder and intellectual disability that presented to the emergency department for suicidal ideation. Patient reported that she didn't want to live anymore and she swallowed a thumb tack. Patient lives in assisted living. Had been doing well prior to this episode. Denies any recent illness, no fevers or chills. Caregiver is at bedside Allergies: Coded Allergies: AMOXICILLIN (Unverified Allergy, Unknown, RASH, 01/03/08) PENICILLINS (Unverified Allergy, Unknown, UNKNOWN, 03/14/09) CAREGIVER UNSURE OF REACTION Uncoded Allergies: BAND AIDS (Allergy, Intermediate, RASH, ITCH, 06/11/07) DETERGENTS (Allergy, Unknown, RASH, 01/03/08) Home Meds: Home Medications: Active Reported Levothroid (Levothyroxine Sodium) 100 Mcg Tablet 100 Mcg PO DAILY @[address] (Divalproex Sodium) 250 Mg Tablet.dr 250 Mg PO HS @20:00 Depakote ER (Divalproex Sodium) 500 Mg Tab.sr.24h 500 Mg PO BID @ 8 AND 20:00 [Daysee] 1 Tab PO DAILY @ 8 Topamax (Topiramate) 100 Mg Tablet 100 Mg PO HS @20:00 Prozac Cap (Fluoxetine HCl) 20 Mg Tablet 40 Mg PO DAILY @8 Topamax Tab (Topiramate) 200 Mg Tablet 200 Mg PO DAILY @8 Review of Systems Narrative: Review of Systems Constitutional: Complains of: Fatigue Eyes: Complains of: No eye symptoms ENT/Mouth: Complains of: No ENTM symptoms Cardiovascular: Complains of: No cardiac symptoms Respiratory: Complains of: No respiratory symptoms GI: Complains of: No GI symptoms Neuro: Complains of: No neuro symptoms Musculoskeletal: Complains of: No musculoskeletal symptoms Skin: Complains of: No skin symptoms Hematologic/Lymphatic: Complains of: No hematologic/lymphatic symptoms Endocrine: Complains of: No endocrine symptoms : Complains of: No symptoms Psych: Complains of: Depression, Suicide ideation Meds NPU Home Medications Medication Instructions Recorded Confirmed Last Taken Type acetaminophen 325 mg capsule 650 mg PO Q6H PRN #120 cap 03/01/19 09/23/19 08/12/19 Rx dextromethorphan-guaifenesin 10 10 ml PO Q6H PRN #120 ml 03/01/19 09/23/19 Unknown Rx mg-100 mg/5 mL oral liquid L norgest/e.estradiol-e.estrad 1 tab PO DAILY 30 Days #30 ea 06/28/19 09/23/19 08/12/19 Rx [Camrese] levothyroxine 100 mcg PO DAILY 30 Days #30 cap 06/28/19 09/23/19 08/12/19 Rx polyethylene glycol 3350 17 17 gm PO DAILY PRN #238 gm 07/02/19 09/23/19 08/12/19 Rx gram/dose oral powder L norgest/e.estradiol-e.estrad 1 tab PO DAILY 08/16/19 09/23/19 Unknown History 0.15 mg-30 mcg (84)/10 mcg(7) tabs,3mos aripiprazole 15 mg tablet 15 mg PO DAILY #30 tab 09/16/19 09/23/19 Unknown Rx divalproex 250 mg tablet,extended 500 mg PO BEDTIME 30 Days #30 tab 09/16/19 09/23/19 Unknown Rx release 24 hr fluoxetine 20 mg capsule 60 mg PO DAILY #90 cap 09/16/19 09/23/19 Unknown Rx prazosin 1 mg capsule 2 mg PO DAILY #60 cap 09/16/19 09/23/19 Unknown Rx topiramate 100 mg tablet 100 mg PO BEDTIME 30 Days #30 tab 09/16/19 09/23/19 Unknown Rx trazodone 50 mg tablet 50 mg PO BEDTIME PRN 30 Days #30 09/16/19 09/23/19 Unknown Rx tab Allergies Allergy/AdvReac Type Severity Reaction Status Date / Time adhesive Allergy ALGY-Rash Verified 09/10/19 09:01 nitrofurantoin Allergy Unknown Verified 09/10/19 09:01 [From Macrobid] Penicillins Allergy Unknown Verified 09/10/19 09:01 PFSH NPU PFSH: Medical History Constipation H/O swallowed foreign body Hypothyroidism Major depressive disorder, 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 Post-traumatic stress disorder, chronic Social History (Updated 09/23/19 @ 10:56 by Sherwin Oh MD) Smoking and tobacco status: never smoked Alcohol intake: never Caregiver/support person: Yes Lives independently: No Household members: other Details: LIVES IN A SENIOR LIVING Housing: Assisted Living Facility Marital status: Single Current occupational status: disabled Current gender identity: Female Additional social history: Patient states that she grew up in [place]. She is currently living in a jail and is under guardianship. She enjoys playing games and eating hamburgers. She is despondent that there is no place in [place] where she can get a hamburger and does not know how to make one on her own. Female Reproductive History: Date of last menstrual period: 09/22/19 Mental Status Exam MSE Comments: Discharge Mental Status Exam: The patient is alert and interpersonally engaged. Her gait is slow but symmetric. Information provided is internally consistent and consistent with the records in her chart covering the past 48 hours. However she is a poor personal historian with regard to mental health treatment. Appearance: hygiene is good; no gross neurological deficits., AIMS=0 Speech: She has mild dysarthria but is of normal rate and rhythm and easily understood. Thought processes: Thought processes are concrete. Judgment is not adequate for safety without supervision. Psychotic processes: There is no indication of guarding or paranoia. There is no attention to the internal stimuli. Auditory are reported but poorly described and visual hallucinations are denied. Judgment: Insight is poor. Problem solving skills are not adequate for safety. Orientation: The patient is oriented to person, place time and situation. Memory: no deficits noted in immediate, intermediate, or remote spheres. Attention: The patient is alert and interpersonally engaged. Language: Verbalizations are coherent. Fund of knowledge: Fund of knowledge is not adequate to understand medical choices and make personal decisions Affect/Mood: Affect is consistent with a depressed mood. denied suicidal ideation Affective range is constricted Psychosis: perception unimpaired except through cognitive distortion and cognitive deficit; reality testing intact. Vitals/I&O/Wt Last Vital Signs Temp 98.0 F 09/23/19 06:00 Pulse 103 H 09/23/19 06:00 Resp 18 09/23/19 06:00 BP 111/76 09/23/19 06:00 Pulse Ox 95 09/23/19 06:00 Weight last 48 hrs Weight 81.363 kg Data NPU : 09/22/19 21:21 09/22/19 21:21 A&P Assessment and plan (1) Suicidal ideation: Status: Acute (2) H/O swallowed foreign body: Status: Acute (3) Hypothyroidism: Status: Acute (4) Borderline personality disorder: Status: Acute (5) Mild intellectual disabilities: Status: Acute (6) Major depressive disorder, recurrent severe without psychotic features: Status: Acute Additional A&P Information Assessment: This is a recurrent pattern and has resolved with psychosocial interventions in the past. It is reasonable to expect that this problem will resolve with similar intervention. However it is noted that her Depakote level is low and she has a history of seizure disorder. She is on relatively high dose Abilify and other than her self-reported presence of auditory hallucinations without any objective signs or documented history of psychosis, the need for such a high dose may place her at risk for side effects without significant benefit. It is also noted that she meets criteria still for clinical depression even though she has been on fluoxetine for nearly a year. Treatment plan: Due to the psychiatric conditions and treatment listed in the Assessment and Plan - the patient requires continued hospitalization. Will provide a safe and therapeutic environment for patient.. Will continue inpatient treatment to allow for medication adjustment and monitoring. Will continue q15 min safety checks. Admission plan: Patient will be admitted to the adult psychiatric unit and entered into the full array of individual and group therapies as part of that unit protocol. They will be provided 24-hour access to trained psychiatric nursing care and monitoring. Potential benefits and side effects of medications were discussed as well as the time course of expected response to medication changes. This is a recurrent pattern and has resolved with psychosocial interventions in the past. It is reasonable to expect that this problem will resolve with similar intervention. However it is noted that her Depakote level is low and she has a history of seizure disorder. She is on relatively high dose Abilify and other than her self-reported presence of auditory hallucinations without any objective signs or documented history of psychosis, the need for such a high dose may place her at risk for side effects without significant benefit. It is also noted that she meets criteria still for clinical depression even though she has been on fluoxetine for nearly a year. Additionally, her urine drug screen has been positive for benzodiazepines on each presentation and there is no indication of that benzodiazepines are being prescribed to her. Plan is to reduce Abilify to 10 mg at bedtime. Depakote will be increased to 1000 mg at bedtime. Fluoxetine will be replaced with Effexor XR 75 mg daily. Monitor patient's mood, sleep, appetite, and behavior closely. Encourage patient to participate in individual and group therapeutic sessions on the mchugh. Estimated length of stay 5 days The expected benefits and potential side effects of patient's psychiatric medications were discussed with the patient. The patient understands and consents to treatment.CRITERIA FOR DISCHARGE: stable on medications and no longer an imminent risk Involuntary Hold Information 96 Hour Hold: 96 Hour Involuntary Admission: No 96 Hour Hold Ending Date: 08/19/19 96 Hour Hold Ending Time: 07:00 Attestations NPU Medical Necessity Statement*: Patient will remain in the hospital another 1-2 nights for stabilization of medication changes. Coding Level of Care Code Acute Analytical Strategist for Lasha Turner Diagnoses Suicidal ideation R45.851 H/O swallowed foreign body Z87.821 Hypothyroidism E03.9 Borderline personality disorder F60.3 Mild intellectual disabilities F70 Major depressive disorder, recurrent severe without psychotic features F33.2
[2019-09-23] MEDS: venlafaxine ER (24HR) 37.5 mg Capsule PO (12:06)
[2019-09-23 12:18] VITALS: BP 101/66; PULSE 81; RESP 20; TEMP 36.5; O2SAT 98
[2019-09-23] MEDS: hyDROXYzine 25 mg Capsule 50 MG PO (21:08)
[2019-09-23] MEDS: trazodone 50 mg Tablet PO (21:09)
[2019-09-23] MEDS: divalproex ER 250 mg Tablet (24H) 1000 MG PO (21:09)
[2019-09-23] MEDS: topiramate 100 mg Tablet PO (21:09)
[2019-09-23 22:00] VITALS: BP 132/83; PULSE 86; RESP 18; TEMP 36.9; O2SAT 97
--- NOTE | 2019-09-23 23:49 | PC.NURSE ---
Pt given scheduled topamax and depakote as well as PRN vistaril and trazodone per request.
[2019-09-24 06:00] VITALS: BP 108/72; PULSE 99; RESP 18; TEMP 36.9; O2SAT 98
[2019-09-24] MEDS: prazosin 1 mg Capsule 2 MG PO (08:40)
[2019-09-24] MEDS: venlafaxine ER (24HR) 37.5 mg Capsule PO (08:40)
[2019-09-24] MEDS: levothyroxine 100 mcg Tablet PO (08:41)
[2019-09-24] MEDS: ARIPiprazole 10 mg Tablet PO (08:41)
--- NOTE | 2019-09-24 10:10 | P.PN_ITS ---
Subjective NPU Subjective: Interval history: I don't feel like I am ready to go. IF I go today, I really don't know what I will do. Can I have one more day? Mental Status Exam MSE Comments: Discharge Mental Status Exam: The patient is alert and interpersonally engaged. Her gait is slow but symmetric. Information provided is internally consistent and consistent with the records in her chart covering the past 48 hours. However she is a poor personal historian with regard to mental health treatment. Appearance: hygiene is good; no gross neurological deficits., AIMS=0 Speech: She has mild dysarthria but is of normal rate and rhythm and easily understood. Thought processes: Thought processes are concrete. Judgment is not adequate for safety without supervision. Psychotic processes: There is no indication of guarding or paranoia. There is no attention to the internal stimuli. Auditory are reported but poorly described and visual hallucinations are denied. Judgment: Insight is poor. Problem solving skills are not adequate for safety. Orientation: The patient is oriented to person, place time and situation. Memory: no deficits noted in immediate, intermediate, or remote spheres. Attention: The patient is alert and interpersonally engaged. Language: Verbalizations are coherent. Fund of knowledge: Fund of knowledge is not adequate to understand medical choices and make personal decisions Affect/Mood: Affect is consistent with a depressed mood. denied suicidal ideation Affective range is constricted Psychosis: perception unimpaired except through cognitive distortion and cognitive deficit; reality testing intact. Vitals/I&O/Wt Last Vital Signs Temp 98.5 F 09/24/19 06:00 Pulse 99 09/24/19 06:00 Resp 18 09/24/19 06:00 BP 108/72 09/24/19 06:00 Pulse Ox 98 09/24/19 06:00 Weight last 48 hrs Weight 81.363 kg Data NPU : 09/22/19 21:21 09/22/19 21:21 A&P Assessment and plan (1) Suicidal ideation: Status: Acute (2) H/O swallowed foreign body: Status: Acute (3) Hypothyroidism: Status: Chronic (4) Borderline personality disorder: Status: Chronic (5) Mild intellectual disabilities: Status: Chronic (6) Major depressive disorder, recurrent severe without psychotic features: Status: Acute Additional A&P Information Assessment: This is a recurrent pattern and has resolved with psychosocial interventions in the past. It is reasonable to expect that this problem will resolve with similar intervention. However it is noted that her Depakote level is low and she has a history of seizure disorder. She is on relatively high dose Abilify and other than her self-reported presence of auditory hallucinations without any objective signs or documented history of psychosis, the need for such a high dose may place her at risk for side effects without significant benefit. It is also noted that she meets criteria still for clinical depression even though she has been on fluoxetine for nearly a year. Treatment plan: Due to the psychiatric conditions and treatment listed in the Assessment and Plan - the patient requires continued hospitalization. Will provide a safe and therapeutic environment for patient.. Will continue inpatient treatment to allow for medication adjustment and monitoring. Will continue q15 min safety checks. Admission plan: Patient will be admitted to the adult psychiatric unit and entered into the full array of individual and group therapies as part of that unit protocol. They will be provided 24-hour access to trained psychiatric nursing care and monitoring. Potential benefits and side effects of medications were discussed as well as the time course of expected response to medication changes. This is a recurrent pattern and has resolved with psychosocial interventions in the past. It is reasonable to expect that this problem will resolve with similar intervention. However it is noted that her Depakote level is low and she has a history of seizure disorder. She is on relatively high dose Abilify and other than her self-reported presence of auditory hallucinations without any objective signs or documented history of psychosis, the need for such a high dose may place her at risk for side effects without significant benefit. It is also noted that she meets criteria still for clinical depression even though she has been on fluoxetine for nearly a year. Additionally, her urine drug screen has been positive for benzodiazepines on each presentation and there is no indication of that benzodiazepines are being prescribed to her. Plan is to reduce Abilify to 10 mg at bedtime. Depakote will be increased to 1000 mg at bedtime. Fluoxetine will be replaced with Effexor XR 37.5 mg daily. Hospital day #2: I don't feel like I am ready to go. IF I go today, I really don't know what I will do. Can I have one more day? Plan: Given that that she swallowed an object and she is still a bit at risk for that and that she is only on day #1 of her Effexor, we will provide her 1 more day of supervision and medication management prior to her discharge back to placement tomorrow. Monitor patient's mood, sleep, appetite, and behavior closely. Encourage patient to participate in individual and group therapeutic sessions on the mchugh. Estimated length of stay 2 days The expected benefits and potential side effects of patient's psychiatric medications were discussed with the patient. The patient understands and consents to treatment.CRITERIA FOR DISCHARGE: stable on medications and no longer an imminent risk Involuntary Hold Information 96 Hour Hold: 96 Hour Involuntary Admission: No 96 Hour Hold Ending Date: 08/19/19 96 Hour Hold Ending Time: 07:00 Attestations NPU Medical Necessity Statement*: Patient will remain in the hospital another 1 to 2 days for resolution of the ingested object. Coding Level of Care Code Acute Mechanical Service Specialist for Lasha Turner Diagnoses Suicidal ideation R45.851 H/O swallowed foreign body Z87.821 Hypothyroidism E03.9 Borderline personality disorder F60.3 Mild intellectual disabilities F70 Major depressive disorder, recurrent severe without psychotic features F33.2
[2019-09-24 14:00] VITALS: BP 114/78; PULSE 96; RESP 20; TEMP 37.2; O2SAT 97
[2019-09-24 20:11] VITALS: BP 97/61; PULSE 97; RESP 14; TEMP 37
[2019-09-24] MEDS: divalproex ER 250 mg Tablet (24H) 1000 MG PO (20:21)
[2019-09-24] MEDS: hyDROXYzine 25 mg Capsule 50 MG PO (20:21)
[2019-09-24] MEDS: trazodone 50 mg Tablet PO (20:21)
[2019-09-24] MEDS: topiramate 100 mg Tablet PO (20:59)
--- NOTE | 2019-09-24 21:40 | PC.NURSE ---
PT REQUESTED SOMETHING FOR SLEEP , STATED MY MIND IS RACING . WHEN ASKED WHAT SHE MEANT, PT STATED THAT PEOPLE YELLING SCARES ME . prn TRAZODONE AND VISTARIL given per pt request.
[2019-09-25 06:00] VITALS: BP 116/80; PULSE 104; RESP 15; TEMP 36.3; O2SAT 97
--- NOTE | 2019-09-25 08:21 | P.DS_ITS ---
Diagnoses at Discharge Discharge Diagnosis (1) Suicidal ideation: Status: Resolved (2) H/O swallowed foreign body: Status: Resolved (3) Hypothyroidism: Status: Chronic (4) Borderline personality disorder: Status: Chronic (5) Mild intellectual disabilities: Status: Chronic (6) Major depressive disorder, recurrent severe without psychotic features: Status: Ruled-out Reason for Visit Reason for Visit: swallowed unknown object Brief History: Shelby Cherry is a 34 year old female with primary diagnoses of cognitive deficit and borderline personality disorder. She again presents to the emergency room for at least the third time in the past year after having swallowed a small object out of frustration with her living condition. In addition to her cognitive deficit, her verbal communication skills are limited. By her report, she is unhappy with her current living situation. She feels like they treat her badly though she denies any actual physical abuse. Her presentation today is almost identical to her last. She says that she is hearing voices that tell her to kill herself. However she is unable to define those voices. She cannot say whether there is one or many. She does not recognize the voice. She has no intent or plan to kill herself. However she does confirm the presence of persistent despondent and unhappiness with her living situation. She reports feelings of hopelessness and worthlessness. She is sad and blue on a daily basis. Laboratory Tests 09/01/19 09/22/19 09/22/19 18:35 21:21 21:35 TSH 3.83 Valproic Acid 27.7 L 19.8 L U Benzodiazepines Scrn Positive H ER physician note: Shelby is a 34-year-old female who comes in after she swallowed a plastic piece from a toy game that is less than a size and diameter. Patient says she did this in an effort to hurt herself. She says that no one cares about her and that is why she feels depressed. Patient has history of previous suicide attempts. Patient is very quiet, seems simple and does not offer much in the way of details other than asking for herself to be admitted to the neuropsychiatric unit. Her recreation officer who is here with her confirms these Hospital Course Hospital Course Admission plan: Patient will be admitted to the adult psychiatric unit and entered into the full array of individual and group therapies as part of that unit protocol. They will be provided 24-hour access to trained psychiatric nursing care and monitoring. Potential benefits and side effects of medications were discussed as well as the time course of expected response to medication changes. This is a recurrent pattern and has resolved with psychosocial interventions in the past. It is reasonable to expect that this problem will resolve with similar intervention. However it is noted that her Depakote level is low and she has a history of seizure disorder. She is on relatively high dose Abilify and other than her self-reported presence of auditory hallucinations without any objective signs or documented history of psychosis, the need for such a high dose may place her at risk for side effects without significant benefit. It is also noted that she meets criteria still for clinical depression even though she has been on fluoxetine for nearly a year. Additionally, her urine drug screen h as been positive for benzodiazepines on each presentation and there is no indication of that benzodiazepines are being prescribed to her. Plan is to reduce Abilify to 10 mg at bedtime. Depakote will be increased to 1000 mg at bedtime. Fluoxetine will be replaced with Effexor XR 75 mg daily. Involuntary Hold Information 96 Hour Hold: 96 Hour Involuntary Admission: No 96 Hour Hold Ending Date: 08/19/19 96 Hour Hold Ending Time: 07:00 Mental Status Exam MSE Comments: Discharge Mental Status Exam: The patient is alert and interpersonally engaged. Her gait is slow but symmetric. Information provided is internally consistent and consistent with the records in her chart covering the past 48 hours. However she is a poor personal historian with regard to mental health treatment. Appearance: hygiene is good; no gross neurological deficits., AIMS=0 Speech: She has mild dysarthria but is of normal rate and rhythm and easily understood. Thought processes: Thought processes are concrete. Judgment is not adequate for safety without supervision. Psychotic processes: There is no indication of guarding or paranoia. There is no attention to the internal stimuli. Auditory are reported but poorly described and visual hallucinations are denied. Judgment: Insight is poor. Problem solving skills are not adequate for safety. Orientation: The patient is oriented to person, place time and situation. Memory: no deficits noted in immediate, intermediate, or remote spheres. Attention: The patient is alert and interpersonally engaged. Language: Verbalizations are coherent. Fund of knowledge: Fund of knowledge is not adequate to understand medical choices and make personal decisions Affect/Mood: Affect is consistent with a euthymic mood. denied suicidal ideation Affective range is WNL Psychosis: perception unimpaired except through cognitive distortion and cognitive deficit; reality testing intact. Discharge Data Data Completed and Pending: Completed Studies During Hospitalization Category Date Time Status XR acute abdomen series [id number] Stat Exams 09/22/19 21:10 Completed Vitals: Last Vital Signs Temp 97.3 F L 09/25/19 06:00 Pulse 104 H 09/25/19 06:00 Resp 15 09/25/19 06:00 BP 116/80 09/25/19 06:00 Pulse Ox 97 09/25/19 06:00 Discharge Plan Discharge Patient Disposition: Home Condition: Stable Prescriptions: New aripiprazole 10 mg Tablet 10 mg PO DAILY Qty: 30 RF: 5 venlafaxine 37.5 mg Capsule,Extended Release 24hr 37.5 mg PO DAILY Qty: 30 RF: 5 Continued acetaminophen 325 mg capsule 650 mg PO Q6H PRN (Reason: fever of 100.4 or greater and/or pain) Qty: 120 RF: 2 dextromethorphan-guaifenesin [Guaiasorb DM] 10-100 mg/5 mL liquid 10 ml PO Q6H PRN (Reason: cough) Qty: 120 RF: 2 L norgest/e.estradiol-e.estrad [Camrese] 0.15 mg-30 mcg (84)/10 mcg (7) tablets,dose pack,3 month 1 tab PO DAILY RF: 0 Depakote ER 250 mg tablet extended release 24 hr 500 mg PO BEDTIME 30 Days Qty: 30 RF: 1 prazosin 1 mg capsule 2 mg PO DAILY Qty: 60 RF: 1 topiramate 100 mg tablet 100 mg PO BEDTIME 30 Days Qty: 30 RF: 1 trazodone 50 mg tablet 50 mg PO BEDTIME PRN (Reason: Sleep) 30 Days Qty: 30 RF: 1 polyethylene glycol 3350 [Miralax] 17 gram/dose powder 17 gm PO DAILY PRN (Reason: constipation) Qty: 238 RF: 2 L norgest/e.estradiol-e.estrad [Camrese] 0.15 mg-30 mcg (84)/10 mcg (7) tablets,dose pack,3 month 1 tab PO DAILY 30 Days Qty: 30 RF: 1 levothyroxine 100 mcg capsule 100 mcg PO DAILY 30 Days Qty: 30 RF: 1 Discontinued aripiprazole 15 mg tablet 15 mg PO DAILY Qty: 30 RF: 1 fluoxetine [Prozac] 20 mg capsule 60 mg PO DAILY Qty: 90 RF: 1 Discharge Orders: Discharge Order (Routine); Ordered 09/25/19 Ordered By: Sherwin Oh Referrals: Nora Hernández [Other] (return to [facility] at discharge) Latricia Sanders PMHNP [Staff Physician] - 10/29/19 8:30 am Discharge Attestations NPU Time Spent in Discharge Care*: greater than 30 min Coding Level of Care Code Acute Stratigrapher for g Fwd Diagnoses Suicidal ideation R45.851 H/O swallowed foreign body Z87.821 Hypothyroidism E03.9 Borderline personality disorder F60.3 Mild intellectual disabilities F70 Major depressive disorder, recurrent severe without psychotic features F33.2
[2019-09-25] MEDS: venlafaxine ER (24HR) 37.5 mg Capsule PO (08:30)
[2019-09-25] MEDS: prazosin 1 mg Capsule 2 MG PO (08:30)
[2019-09-25] MEDS: levothyroxine 100 mcg Tablet PO (08:30)
[2019-09-25] MEDS: ARIPiprazole 10 mg Tablet PO (08:30)
[2019-09-25 08:45] VITALS: BP 116/80; PULSE 104; RESP 15; TEMP 36.3; O2SAT 97
== END 2019-09-25 10:08 | disposition home or self-care (01) | DRG 885 ==
LOC: ER 21:10 → NP 22:49
PROVIDERS: Emergency Medicine; Admitting Provider Psychiatry & Neurology Psychiatry; PCP Nurse Practitioner Family; Visit Provider Psychiatry & Neurology Psychiatry
DX: F33.2 Major depressive disorder, recurrent severe without psychotic features (principal); R45.851 Suicidal ideations; F60.3 Borderline personality disorder; T18.9XXA Foreign body of alimentary tract, part unspecified, initial encounter; K59.00 Constipation, unspecified; E03.9 Hypothyroidism, unspecified; F70 Mild intellectual disabilities; F43.12 Post-traumatic stress disorder, chronic; Z87.821 Personal history of retained foreign body fully removed
CPT/HCPCS: 12345; 74022; 80053; 80156; 80164; 80178; 80185; 80306; 80307; 81025; 84443; 85025; 85610; 93005; 99284; 99285

== ENCOUNTER → 2019-10-14 09:07 | Outpatient (BNVA) | payer MEDICAID, SELFPAY | PROVIDERS: PCP Nurse Practitioner Family; Visit Provider Social Worker Clinical | DX: F43.12 Post-traumatic stress disorder, chronic (principal); F70 Mild intellectual disabilities; F60.3 Borderline personality disorder | CPT/HCPCS: 90834 ==

== ENCOUNTER → 2019-10-15 12:25 | Outpatient (BNVA) | payer MEDICAID, SELFPAY | PROVIDERS: PCP Nurse Practitioner Family; Visit Provider Nurse Practitioner Family | DX: T18.9XXD Foreign body of alimentary tract, part unspecified, subsequent encounter (principal); X58.XXXD Exposure to other specified factors, subsequent encounter | CPT/HCPCS: 71046; 74019 ==

== ENCOUNTER 2019-10-15 13:34 | Emergency (ER) | payer MEDICAID, SELFPAY ==
[2019-10-15 13:40] VITALS: BP 121/79; PULSE 85; RESP 18; TEMP 36.7; O2SAT 97; BMI 32.5
--- NOTE | 2019-10-15 14:03 | ED_ITS ---
HPI - Psych General: Chief Complaint: Psychiatric Symptoms Stated Complaint: swallowed something plastic, si Time Seen by Provider: 10/15/19 13:49 History of Present Illness: HPI Narrative: This patient is a 34-year-old female presenting today with suicidal ideation. She has a history of borderline personality disorder, PTSD, intellectual disability. She lives in an [facility]. Structural Steel Fitter is with her today. The private detective says that Hank told him that she swallowed a small piece of plastic yesterday. They took her to her primary care office where they did x-rays. This did not show anything. Patient complains of some abdominal discomfort and diarrhea. She also told him there that she was feeling suicidal and would stab herself in the stomach. She told me that she did swallowed a plastic due to wanting to hurt herself. Her caregiver said that she does do this sort of behavior and feels that it is attention-getting. The patient has had several admissions to the [facility] this year for basically the same presentation. The most recent was about a month ago. She did have some medication adjustments at that time. Her caregiver says that she has not been complaining of feeling down or blue and had seemed quite happy. She has 24-hour care at the [facility] and she feels like she would be safe there. complaint: suicidal ideation and other (Swallowed a small piece of plastic) Onset (ago): day(s) (1) History of same: Yes Relieving factors: none Exacerbating factors: none Associated psychiatric symptoms: suicidal ideation Associated symptoms: Reports suicidal ideation Review of Systems GI: Reports: diarrhea Psych: Reports: mood swings and suicidal ideation [facility] ED PFSH: Medical History Constipation H/O swallowed foreign body Hypothyroidism Major depressive disorder, 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 Post-traumatic stress disorder, chronic Social History Smoking and tobacco status: never smoked Second hand smoke exposure: No Alcohol intake: never Caregiver/support person: Yes Lives independently: No Household members: other Details: LIVES IN A INTERMEDIATE Housing: Assisted Living Facility Marital status: Single Current occupational status: disabled History of recent travel: No Current gender identity: Female Additional social history: Patient states that she grew up in [place]. She is currently living in a longterm and is under guardianship. She enjoys playing games and eating hamburgers. She is despondent that there is no place in [place] where she can get a hamburger and does not know how to make one on her own. Female Reproductive History: Date of last menstrual period: 08/26/19 Physical Exam Const: COMMON NORMALS: no acute distress, patient oriented x3, no limitations and alert GENERAL APPEARANCE: cooperative and comfortable HENMT: HEAD & SCALP: normal to inspection FACE & SINUS: normal facial exam Eye: GENERAL EYE: appearance normal, both eyes and all related structures Neck/C-Spine: COMMON NORMALS: supple, no meningeal signs and no JVD Chest: COMMONS NORMALS: normal inspection of the chest Resp: COMMON NORMALS: normal respiratory effort, No use of accessory muscles and clear to auscultation bilaterally AUSCULTATION: clear to auscultation bilaterally Cardio: COMMON NORMALS: no JVD, regular rate, regular rhythm and No murmurs present (Cardio) RATE: regular rate RHYTHM: regular rhythm GI: COMMON NORMALS: Normal to inspection, nondistended, normoactive bowel sounds present, Soft to palpation and non-tender INSPECTION: Yes normal to inspection AUSCULTATION: Yes normoactive bowel sounds PALPATION: Yes Soft to palpation Back/Pelvis: COMMON NORMALS: thoracic and lumbar spine normal to inspection Extremity: COMMON NORMALS: normal to inspection Neuro: COMMON NORMALS: patient oriented x3, moves all extremities, no focal motor deficits and no sensory deficits noted SENSORIUM/ORIENTATION: Yes alert MENINGEAL SIGNS: Yes no meningeal signs Psych: COMMON NORMALS: mental status grossly normal, cooperative and normal affect Skin: COMMON NORMALS: no rashes or lesions noted and turgor normal GENERAL SKIN EXAM: no rashes or lesions noted and turgor normal Discharge Plan Discharge Patient Disposition: Home Clinical Impression: Borderline personality disorder Condition: Stable Prescriptions: No Action acetaminophen 325 mg capsule 650 mg PO Q6H PRN (Reason: fever of 100.4 or greater and/or pain) Qty: 120 RF: 2 Depakote ER 250 mg tablet extended release 24 hr 500 mg PO BEDTIME 30 Days Qty: 30 RF: 1 prazosin 1 mg capsule 2 mg PO DAILY Qty: 60 RF: 1 topiramate 100 mg tablet 100 mg PO BEDTIME 30 Days Qty: 30 RF: 1 trazodone 50 mg tablet 50 mg PO BEDTIME PRN (Reason: Sleep) 30 Days Qty: 30 RF: 1 hydroxyzine HCl 50 mg tablet 50 mg PO Q6H PRN (Reason: unknown) RF: 0 polyethylene glycol 3350 [Miralax] 17 gram/dose powder 17 gm PO DAILY PRN (Reason: constipation) Qty: 238 RF: 2 aripiprazole 10 mg Tablet 10 mg PO DAILY Qty: 30 RF: 5 venlafaxine 37.5 mg Capsule,Extended Release 24hr 37.5 mg PO DAILY Qty: 30 RF: 5 Safe Tussin DM 10-100 mg/5 mL liquid 10 ml PO Q6H PRN (Reason: unknown) RF: 0 L norgest/e.estradiol-e.estrad [Camrese] 0.15 mg-30 mcg (84)/10 mcg (7) tablets,dose pack,3 month 1 tab PO DAILY 30 Days Qty: 30 RF: 1 levothyroxine 100 mcg capsule 100 mcg PO DAILY 30 Days Qty: 30 RF: 1 Discharge Orders: Discharge Order (Routine); Ordered 10/15/19 Ordered By: Patricia Whitmore Referrals: Ольга Quarles FNP [Primary Care Provider] - Discharge Diet: Usual diet Discharge Activity: Resume usual activity Patient Instructions: Borderline Personality Disorder (GEN) Discharge Date/Time: 10/15/19 17:00 Coding Level of Care Code ED Spring Machine Operator for Lasha Fwd Exam Comprehensive
--- NOTE | 2019-10-15 14:10 | PC.NURSE ---
Patient belongings are in filing cabinet across from patient room.
[2019-10-15 15:48] VITALS: BP 110/74; PULSE 84; RESP 16; O2SAT 98
[2019-10-15 16:49] VITALS: BP 115/76; PULSE 87; RESP 20; O2SAT 98
== END 2019-10-15 17:00 | disposition home or self-care (01) ==
PROVIDERS: Emergency Provider Emergency Medicine; PCP Nurse Practitioner Family
DX: F60.3 Borderline personality disorder (principal)
CPT/HCPCS: 12345; 99284

== ENCOUNTER → 2019-10-22 10:28 | Outpatient (BNVA) | payer MEDICAID, SELFPAY | PROVIDERS: PCP Nurse Practitioner Family; Visit Provider Nurse Practitioner | DX: F43.12 Post-traumatic stress disorder, chronic (principal); F70 Mild intellectual disabilities; F60.3 Borderline personality disorder | CPT/HCPCS: 99214 ==

== ENCOUNTER → 2019-10-30 10:27 | Outpatient (BNVA) | payer MEDICAID, SELFPAY | PROVIDERS: PCP Nurse Practitioner Family; Visit Provider Social Worker Clinical | DX: F43.12 Post-traumatic stress disorder, chronic (principal); F70 Mild intellectual disabilities; F60.3 Borderline personality disorder | CPT/HCPCS: 90834 ==

== ENCOUNTER 2019-11-11 20:31 | Emergency (ER) | payer MEDICAID, SELFPAY ==
[2019-11-11 20:35] VITALS: BP 127/82; PULSE 102; RESP 16; TEMP 36.3; O2SAT 98; BMI 30.5
--- NOTE | 2019-11-11 20:37 | XRR_ITS ---
PROCEDURE INFORMATION: Exam: XR Abdomen, 1 View Exam date and time: 11/11/2019 8:57 PM Age: 34 years old Clinical indication: Other: Foreign body; Patient HX: PT coughed up a piece of a screw just prior to abd xray. PT stated to caregiver, i told you i swallowed that ring. TECHNIQUE: Imaging protocol: XR of the abdomen. Views: Frontal supine view of the abdomen. 1 View. COMPARISON: CR XR abdomen min 2V [id number] 10/15/2019 12:34 PM FINDINGS: Gastrointestinal tract: There is mildly increased stool noted in the ascending colon. No bowel obstruction. Intraperitoneal space: The lower pelvis is excluded. Bones/joints: No acute abnormality identified. Soft tissues: Metallic jewelry ring lateral right mid abdomen, overlying the ascending colon. XR/XR KUB portable [id number] IMPRESSION: 1. Metallic jewelry ring lateral right mid abdomen. 2. Mild right abdominal colonic constipation.
--- NOTE | 2019-11-11 21:39 | ED_ITS ---
HPI - Psych General: Chief Complaint: Psychiatric Symptoms Stated Complaint: pt states she swallowed a nail Time Seen by Provider: 11/11/19 20:48 History of Present Illness: HPI Narrative: This patient is a 34-year-old female who is well-known to the emergency department. She lives in a supervised living situation. She has a habit of swallowing small objects. She tells me that she did this to try to harm herself today. Her caregiver says that she has been quarantined in her room because of another person in the house who was positive for COVID. She has been irritated but that and broke some furniture tonight. She swallowed 1 of the screw heads and told her caregiver that she had swallowed a nail. They brought her in and while they were sitting up the x-ray she coughed up the screw head. They went ahead and did the x-ray and found a ring in her colon. The patient wants to be admitted to the you. The caregiver feels that she is just attention seeking and is not really a danger to herself. complaint: suicidal ideation and feels depressed Review of Systems Const: Denies: fever(s) or chills Card: Denies: chest pain Resp: Denies: dyspnea GI: Denies: nausea or vomiting [facility] ED PFSH: Medical History (Updated 11/11/19 @ 21:49 by Patricia Whitmore MD) Constipation H/O swallowed foreign body Hypothyroidism Major depressive disorder, 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 Post-traumatic stress disorder, chronic Social History Smoking and tobacco status: never smoked Second hand smoke exposure: No Alcohol intake: never Caregiver/support person: Yes Lives independently: No Household members: other Details: LIVES IN A RESIDENTIAL Housing: Assisted Living Facility Marital status: Single Current occupational status: disabled History of recent travel: No Current gender identity: Female Additional social history: Patient states that she grew up in [place]. She is currently living in [place] [facility] [place] and is under guardianship. She enjoys playing games and eating hamburgers. She is despondent that there is no place in [place] where she can get a hamburger and does not know how to make one on her own. Female Reproductive History: Date of last menstrual period: 08/26/19 Physical Exam Const: COMMON NORMALS: no acute distress, patient oriented x3, no limitations and alert GENERAL APPEARANCE: cooperative and comfortable HENMT: HEAD & SCALP: normal to inspection FACE & SINUS: normal facial exam Eye: GENERAL EYE: appearance normal, both eyes and all related structures Neck/C-Spine: COMMON NORMALS: supple, no meningeal signs and no JVD Chest: COMMONS NORMALS: normal inspection of the chest Resp: COMMON NORMALS: normal respiratory effort, No use of accessory muscles and clear to auscultation bilaterally AUSCULTATION: clear to auscultation bilaterally Cardio: COMMON NORMALS: no JVD, regular rate, regular rhythm and No murmurs present (Cardio) RATE: regular rate RHYTHM: regular rhythm GI: COMMON NORMALS: Normal to inspection, nondistended, normoactive bowel sounds present, Soft to palpation and non-tender INSPECTION: Yes normal to inspection AUSCULTATION: Yes normoactive bowel sounds PALPATION: Yes Soft to palpation Back/Pelvis: COMMON NORMALS: thoracic and lumbar spine normal to inspection Extremity: COMMON NORMALS: normal to inspection Neuro: COMMON NORMALS: patient oriented x3, moves all extremities, no focal motor deficits and no sensory deficits noted SENSORIUM/ORIENTATION: Yes alert MENINGEAL SIGNS: Yes no meningeal signs Psych: COMMON NORMALS: mental status grossly normal, cooperative, normal affect and speech normal ATTITUDE: Yes Withdrawn affect present ACTIVITY/MOTOR BEHAVIOR: Yes Avoids eye contact (attititude/behavior) SPEECH: Yes normal speech Skin: COMMON NORMALS: no rashes or lesions noted and turgor normal GENERAL SKIN EXAM: no rashes or lesions noted and turgor normal Discharge Plan Discharge Patient Disposition: Home Clinical Impression: Swallowed foreign body, Borderline personality disorder Condition: Stable Prescriptions: No Action acetaminophen 325 mg capsule 650 mg PO Q6H PRN (Reason: fever of 100.4 or greater and/or pain) Qty: 120 RF: 2 Depakote ER 250 mg tablet extended release 24 hr 500 mg PO BEDTIME 30 Days Qty: 30 RF: 1 prazosin 1 mg capsule 2 mg PO DAILY Qty: 60 RF: 1 trazodone 50 mg tablet 50 mg PO BEDTIME PRN (Reason: Sleep) 30 Days Qty: 30 RF: 1 topiramate 100 mg tablet 100 mg PO BEDTIME 30 Days Qty: 30 RF: 1 hydroxyzine HCl 50 mg tablet 50 mg PO Q6H PRN (Reason: unknown) RF: 0 polyethylene glycol 3350 [Miralax] 17 gram/dose powder 17 gm PO DAILY PRN (Reason: constipation) Qty: 238 RF: 2 levothyroxine 100 mcg capsule 100 mcg PO DAILY 30 Days Qty: 30 RF: 4 aripiprazole 10 mg Tablet 10 mg PO DAILY Qty: 30 RF: 5 venlafaxine 37.5 mg Capsule,Extended Release 24hr 37.5 mg PO DAILY Qty: 30 RF: 5 dextromethorphan-guaifenesin [Safe Tussin DM] 10-100 mg/5 mL liquid 10 ml PO Q6H PRN (Reason: unknown) RF: 0 Jaimiess 0.15 mg-30 mcg (84)/10 mcg (7) tablets,dose pack,3 month 1 tab PO DAILY RF: 0 Discharge Orders: Discharge Order (Routine); Ordered 11/11/19 Ordered By: Patricia Whitmore Referrals: Ольга Quarles FNP [Primary Care Provider] - Discharge Diet: Usual diet Discharge Activity: Resume usual activity Patient Instructions: Foreign Body Ingestion (ED) Activity Restrictions/Additional Instructions: Follow-up with outpatient providers. The ring should not cause any problems and should pass uneventfully. Coding Level of Care Code ED Direct Support Staff Member for Chg Fwd Exam Comprehensive
[2019-11-11 22:51] VITALS: PULSE 72; RESP 18; O2SAT 99
== END 2019-11-11 22:52 | disposition home or self-care (01) ==
PROVIDERS: Emergency Provider Emergency Medicine; PCP Nurse Practitioner Family
DX: T18.9XXA Foreign body of alimentary tract, part unspecified, initial encounter (principal); X58.XXXA Exposure to other specified factors, initial encounter; F60.3 Borderline personality disorder
CPT/HCPCS: 12345; 74018; 99282; 99284

== ENCOUNTER 2019-11-12 21:46 | Emergency (ER) | payer MEDICAID, SELFPAY ==
[2019-11-12 21:55] VITALS: BP 111/74; PULSE 90; RESP 14; TEMP 36.5; O2SAT 98; BMI 34.4
--- NOTE | 2019-11-12 21:58 | XRR_ITS ---
PROCEDURE INFORMATION: Exam: XR Chest, 1 View Exam date and time: 11/12/2019 10:23 PM Clinical indication: Screening exam; Other: Foreign body ingestion; Patient HX: Swallowed 2 screws TECHNIQUE: Imaging protocol: XR of the chest Views: 1 view. COMPARISON: No relevant prior studies available. FINDINGS: Lungs: Unremarkable. No consolidation. Pleural space: Unremarkable. No pleural effusion. No pneumothorax. Heart/Mediastinum: Unremarkable. No cardiomegaly. Bones/joints: Unremarkable. IMPRESSION: No acute findings. PROCEDURE INFORMATION: Exam: XR Abdomen, 2 Views Exam date and time: 11/12/2019 10:23 PM Age: 34 years old Clinical indication: Screening exam; Other: Foreign body ingestion; Patient HX: Swallowed 2 screws TECHNIQUE: Imaging protocol: XR of the abdomen. Views: 2 Views. COMPARISON: CR XR KUB portable [id number] 11/11/2019 8:44 PM FINDINGS: Gastrointestinal tract: bowel gas pattern is nonspecific. Air filled large bowel including distal rectal gas. Moderate amount stool throughout the large bowel. Intraperitoneal space: Normal. No free air. Bones/joints: Unremarkable for age. Soft tissues: Three foreign bodies including a ring and screw and likely washer or metallic nut in the region of the ascending colon. XR/XR acute abdomen series [id number] IMPRESSION: 1. Three foreign bodies including a ring and screw and likely washer or metallic nut in the region of the ascending colon. 2. Bowel gas pattern is nonspecific. Air filled large bowel including distal rectal gas. 3. Moderate amount stool throughout the large bowel.
--- NOTE | 2019-11-12 21:59 | PC.NURSE ---
Patient has a roommate that was tested positive for Covid almost 2 weeks ago.
--- NOTE | 2019-11-12 22:12 | ED_ITS ---
HPI - Psych General: Chief Complaint: Psychiatric Symptoms Stated Complaint: swallowed 2 screws Time Seen by Provider: 11/12/19 21:57 Source: patient Mode of arrival: ambulatory Limitations: no limitations History of Present Illness: HPI Narrative: Shelby is a 34-year-old female who comes in stating that she swallowed 2 screws in an effort to kill herself. Patient has a history of such behavior. She does not know why she wants to kill herself. Patient states that she wants to come to the hospital to get help. She denies ingesting any other substances other than the screws. Review of Systems Const: Denies: fever(s), chills, body aches, fatigue, malaise or diaphoresis Eyes: Denies: change in vision, blurry vision, photophobia, eye discomfort, eye discharge, eye redness or yellow eyes ENMT: Denies: throat pain, odynophagia, hoarseness, swelling of lips/tongue, ear or mastoid pain, ear discharge, change in hearing or nasal discharge Card: Denies: chest pain, palpitations, irregular heart rhythm, edema, lightheadedness, syncope, pre-syncope, dyspnea on exertion or orthopnea Resp: Denies: dyspnea, productive cough, non-productive cough, wheezing, hemoptysis or chest congestion GI: Denies: abdominal pain, nausea, vomiting, hematemesis, coffee ground emesis, heartburn, diarrhea, constipation, GI cramping, hematochezia or melena : Denies: flank pain, dysuria, urinary frequency, urinary urgency or hematuria Musc: Denies: neck pain, back pain, extremity pain, extremity swelling, joint pain, joint swelling, joint redness, joint warmth or joint stiffness Skin/Breast: Denies: rash, pruritus, erythema, skin pain or skin tenderness Neuro: Denies: headache(s), numbness in extremities, weakness in extremities, sensory changes, lack of coordination, difficulty walking, dizziness, vertigo, confusion, Slurred speech present or seizure-like activity [place]/Lymph: Denies: easy bruising, easy bleeding, petechiae, purpura or enlarged lymph nodes All/Imm: Denies: urticaria, throat swelling, tongue swelling, facial swelling or acute wheezing PFS ED PFSH: Medical History Constipation H/O swallowed foreign body Hypothyroidism Major depressive disorder, 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 Post-traumatic stress disorder, chronic Social History Smoking and tobacco status: never smoked Second hand smoke exposure: No Alcohol intake: never Caregiver/support person: Yes Lives independently: No Household members: other Details: LIVES IN A [facility] Housing: Assisted Living Facility Marital status: Single Current occupational status: disabled History of recent travel: No Current gender identity: Female Additional social history: Patient states that she grew up in [place]. She is currently living in a retirement and is under guardianship. She enjoys playing games and eating hamburgers. She is despondent that there is no place in [place] where she can get a hamburger and does not know how to make one on her own. Female Reproductive History: Date of last menstrual period: 08/26/19 Physical Exam Const: COMMON NORMALS: no acute distress, patient oriented x3, no limitations and alert GENERAL APPEARANCE: cooperative HENMT: COMMON NORMALS: normocephalic, atraumatic, external ears normal, EAC's normal and Normal external nose present HEAD & SCALP: normal to inspection, normocephalic and atraumatic FACE & SINUS: normal facial exam and face symmetric NOSE: Normal external nose present and Normal nares present EXTERNAL EAR: Yes external ears normal EXTERNAL AUDITORY CANAL: EAC's normal MOUTH: Normal oral and palatal mucosa present, lip normal and tongue normal Eye: COMMON NORMALS: Equal, round and reactive pupils present and conjunctivae normal GENERAL EYE: appearance normal, both eyes and all related structures ALIGNMENT: Yes alignment normal PERIORBITAL: periorbital findings normal EYELID: eyelids normal CONJUNCTIVA: Yes conjunctivae normal SCLERA: sclerae normal PUPIL: Yes Equal, round and reactive pupils present Neck/C-Spine: COMMON NORMALS: full ROM, no lymphadenopathy, supple, no meningeal signs and no JVD GENERAL: Yes normal visual inspection and Yes trachea midline Chest: COMMONS NORMALS: normal inspection of the chest and normal palpation of entire chest wall Resp: COMMON NORMALS: normal respiratory effort, No retractions, No use of accessory muscles and clear to auscultation bilaterally EFFORT & INSPECTION: Yes able to speak in complete sentences and Yes symmetric chest movement AUSCULTATION: clear to auscultation bilaterally, no crackles, no rales, no rhonchi and no wheezes Cardio: COMMON NORMALS: no JVD, regular rate, regular rhythm, S1 normal heart sound present and S2 normal heart sound present RATE: regular rate RHYTHM: regular rhythm HEART SOUNDS: S1 normal heart sound present, S2 normal heart sound present, no click, no gallops, no murmurs and no rubs GI: COMMON NORMALS: Soft to palpation and No hepatosplenomegaly present PALPATION: Yes Soft to palpation, No Tenderness to palpation present (GI), No Guarding due to palpation present (GI), No Rigid due to palpation, Yes No hepatosplenomegaly present, No Hernia present, No Palpable mass present and No Pulsatile mass present : COMMON NORMALS: Yes no CVA tenderness BLADDER/KIDNEY EXAM: Yes no CVA tenderness EXTERNAL FEMALE EXAM: No Hernia present Back/Pelvis: COMMON NORMALS: no CVA tenderness, thoracic and lumbar spine normal to inspection, no thoracic nor lumbar tenderness and thoraco-lumbar ROM normal Extremity: COMMON NORMALS: normal to inspection, full ROM, capillary refill normal, no joint enlargement, no clubbing, cyanosis or edema and no calf tenderness Neuro: COMMON NORMALS: patient oriented x3, CN's II-XII intact bilaterally, moves all extremities, no focal motor deficits and no sensory deficits noted SENSORIUM/ORIENTATION: Yes alert MENINGEAL SIGNS: Yes no meningeal signs SPEECH: speech normal Psych: COMMON NORMALS: mental status grossly normal, Normal thought process present, cooperative, normal affect, speech normal and activity/motor behavior normal SPEECH: Yes normal speech THOUGHT PROCESS: Normal thought process present Skin: COMMON NORMALS: no rashes or lesions noted, turgor normal, no jaundice, no petechiae and no mottling GENERAL SKIN EXAM: no rashes or lesions noted and turgor normal MDM - Psych MDM Narrative: Medical decision making narrative: The patient has been medically cleared. I did review the fact the patient has a ring that has not moved and the [address] Moreno. He feels the patient can just check her stools but she will need to see her primary care physician within 2 days if they have not passed. If the patient develops abdominal pain or begins to vomit she may need to return but at this time she is no abdominal pain and is not vomiting. The patient was seen in tele-psychiatry consult by Dr. Kendall and he feels the patient to be malingering and doing this for attention because she wants out of COVID isolation. He does not feel that she is a threat to herself or others and states that she needs to be discharged. Please see his consult note for details. Lab Data: Labs: Lab Results 11/12/19 11/12/19 11/12/19 Range/Units 22:41 22:41 22:41 WBC 14.6 H (4.0-10.0) 10^3/ uL RBC 4.46 (4.1-5.3) 10^6/u L Hgb 13.3 (11.5-15.3) g/dL Hct 41.3 (37.0-47.0) % MCV 92.6 (81-99) fL MCH 29.8 (28.0-34.0) pg MCHC 32.2 (30.0-36.0) g/dL RDW 16.0 H (12.1-15.1) % Plt Count 388 (130-400) 10^3/c mm MPV 10.0 (7.4-10.4) fL Neut % (Auto) 59.2 % Lymph % (Auto) 32.3 % [place] % (Auto) 7.4 % Eos % (Auto) 0.4 % Baso % (Auto) 0.4 % Neut # (Auto) 8.67 H (1.8-7.7) 10^3/u L Lymph # (Auto) 4.7 (0.8-4.8) 10^3/u L [place] # (Auto) 1.1 H (0.2-0.9) 10^3/u L Eos # (Auto) 0.1 (0.0-0.8) 10^3/u L Baso # (Auto) 0.1 (0.0-0.1) 10^3/u L Nucleated RBC % (a uto) 0 % Nucleated RBCs # 0.0 /100WBC Sodium 136 (136-145) mmol/L Potassium 3.9 (3.5-5.1) mmol/L Chloride 102 (98-107) mmol/L Carbon Dioxide 25 (22-29) mmol/L Anion Gap 12.9 (5-19) BUN 17 (6-20) mg/dL Creatinine 0.7 (0.5-0.9) mg/dL GFR Calculation 94.7 (90-130) mL/min Glucose 98 (65-115) mg/dL Calculated Osmolal ity 284 L (285-295) mOsm/k g Calcium 9.6 (8.5-10.5) mg/dL Total Bilirubin 0.2 (0.15-1.2) mg/dL AST 16 (0-32) U/L ALT 12 (0-33) U/L Alkaline Phosphata se 45 (35-105) IU/L Total Protein 6.9 (6.6-8.7) g/dL Albumin 3.7 (3.5-5.2) g/dL Globulin 3.2 (1.3-4.6) g/dL TSH 4.40 H (0.27-4.20) uIU/ mL HCG, Qual Negative (Negative) Urine Color (Yellow) Urine Appearance (CLEAR) Urine pH (5-7) Ur Specific Gravit y (1.005-1.030) Urine Protein (Negative) Urine Glucose (UA) (Normal) Urine Ketones (Negative) Urine Blood (Negative) Urine Nitrate (Negative) Urine Bilirubin (Negative) Urine Urobilinogen (Negative) mg/dL Ur Leukocyte Shala ase (Negative) Urine RBC (0-2) /hpf Urine WBC (0-5) /hpf Ur Squamous Epith Cells (0-5) /hpf Amorphous Sediment Urine Bacteria (NONE) /hpf Salicylates < 0.3 L (3-10) mg/dL Urine Opiates Scre en (Negative) ng/mL Acetaminophen < 5.0 L (10-30) ug/mL Ur Barbiturates Sc reen (Negative) ng/mL Ur Phencyclidine S crn (Negative) ng/mL Ur Amphetamines Sc reen (Negative) ng/mL U Benzodiazepines Scrn (Negative) ng/mL Urine Cocaine Scre en (Negative) ng/mL U Marijuana (THC) Screen (Negative) ng/mL Ethyl Alcohol < 10 (0-10) mg/dL 11/12/19 11/12/19 Range/Units 22:41 22:41 WBC (4.0-10.0) 10^3/ uL RBC (4.1-5.3) 10^6/u L Hgb (11.5-15.3) g/dL Hct (37.0-47.0) % MCV (81-99) fL MCH (28.0-34.0) pg MCHC (30.0-36.0) g/dL RDW (12.1-15.1) % Plt Count (130-400) 10^3/c mm MPV (7.4-10.4) fL Neut % (Auto) % Lymph % (Auto) % [place] % (Auto) % Eos % (Auto) % Baso % (Auto) % Neut # (Auto) (1.8-7.7) 10^3/u L Lymph # (Auto) (0.8-4.8) 10^3/u L [place] # (Auto) (0.2-0.9) 10^3/u L Eos # (Auto) (0.0-0.8) 10^3/u L Baso # (Auto) (0.0-0.1) 10^3/u L Nucleated RBC % (a uto) % Nucleated RBCs # /100WBC Sodium (136-145) mmol/L Potassium (3.5-5.1) mmol/L Chloride (98-107) mmol/L Carbon Dioxide (22-29) mmol/L Anion Gap (5-19) BUN (6-20) mg/dL Creatinine (0.5-0.9) mg/dL GFR Calculation (90-130) mL/min Glucose (65-115) mg/dL Calculated Osmolal ity (285-295) mOsm/k g Calcium (8.5-10.5) mg/dL Total Bilirubin (0.15-1.2) mg/dL AST (0-32) U/L ALT (0-33) U/L Alkaline Phosphata se (35-105) IU/L Total Protein (6.6-8.7) g/dL Albumin (3.5-5.2) g/dL Globulin (1.3-4.6) g/dL TSH (0.27-4.20) uIU/ mL HCG, Qual (Negative) Urine Color Yellow (Yellow) Urine Appearance Sl hazy (CLEAR) Urine pH 5 (5-7) Ur Specific Gravit y 1.020 (1.005-1.030) Urine Protein Neg (Negative) Urine Glucose (UA) Norm (Normal) Urine Ketones Negative (Negative) Urine Blood 3+ H (Negative) Urine Nitrate Negative (Negative) Urine Bilirubin Neg (Negative) Urine Urobilinogen Norm (Negative) mg/dL Ur Leukocyte Shala ase 1+ H (Negative) Urine RBC 0-4 H (0-2) /hpf Urine WBC 10-15 H (0-5) /hpf Ur Squamous Epith Cells 10-15 H (0-5) /hpf Amorphous Sediment Not Reportable Urine Bacteria 2+ H (NONE) /hpf Salicylates (3-10) mg/dL Urine Opiates Scre en Negative (Negative) ng/mL Acetaminophen (10-30) ug/mL Ur Barbiturates Sc reen Negative (Negative) ng/mL Ur Phencyclidine S crn Negative (Negative) ng/mL Ur Amphetamines Sc reen Negative (Negative) ng/mL U Benzodiazepines Scrn Negative (Negative) ng/mL Urine Cocaine Scre en Negative (Negative) ng/mL U Marijuana (THC) Screen Negative (Negative) ng/mL Ethyl Alcohol (0-10) mg/dL Imaging Data^: CXR: Attestation: I personally reviewed and interpreted this imaging study as follows: My impression: No acute cardiopulmonary findings. No foreign body. KUB: Attestation: I personally reviewed and interpreted this imaging study as follows: My impression: Brings position unchanged from the previous. 2 small radiopaque foreign body is what appears to be a screw present in bowel. No evidence of pneumoperitoneum or obstruction. Discharge Plan Discharge Patient Disposition: Home Clinical Impression: Swallowed foreign body Qualifiers: Encounter type: initial encounter Qualified Code(s): T18.9XXA - Foreign body of alimentary tract, part unspecified, initial encounter Condition: Stable Prescriptions: No Action acetaminophen 325 mg capsule 650 mg PO Q6H PRN (Reason: fever of 100.4 or greater and/or pain) Qty: 120 RF: 2 Depakote ER 250 mg tablet extended release 24 hr 500 mg PO BEDTIME 30 Days Qty: 30 RF: 1 prazosin 1 mg capsule 2 mg PO DAILY Qty: 60 RF: 1 trazodone 50 mg tablet 50 mg PO BEDTIME PRN (Reason: Sleep) 30 Days Qty: 30 RF: 1 topiramate 100 mg tablet 100 mg PO BEDTIME 30 Days Qty: 30 RF: 1 hydroxyzine HCl 50 mg tablet 50 mg PO Q6H PRN (Reason: unknown) RF: 0 polyethylene glycol 3350 [Miralax] 17 gram/dose powder 17 gm PO DAILY PRN (Reason: constipation) Qty: 238 RF: 2 levothyroxine 100 mcg capsule 100 mcg PO DAILY 30 Days Qty: 30 RF: 4 aripiprazole 10 mg Tablet 10 mg PO DAILY Qty: 30 RF: 5 venlafaxine 37.5 mg Capsule,Extended Release 24hr 37.5 mg PO DAILY Qty: 30 RF: 5 dextromethorphan-guaifenesin [Safe Tussin DM] 10-100 mg/5 mL liquid 10 ml PO Q6H PRN (Reason: unknown) RF: 0 Jaimiess 0.15 mg-30 mcg (84)/10 mcg (7) tablets,dose pack,3 month 1 tab PO DAILY RF: 0 Discharge Orders: Discharge Order (Routine); Ordered 11/12/19 Ordered By: Jeannette Ricardo Referrals: Ольга Quarles FNP [Primary Care Provider] - 1-3 days (Check all your stools for the foreign bodies that she swallowed. If you have not passed them within 2 to 3 days you will need to follow-up with Ms. Quarles for recheck.) Discharge Diet: Usual diet Discharge Activity: Resume usual activity Patient Instructions: Foreign Body Ingestion (ED) Activity Restrictions/Additional Instructions: Please return to the ER immediately for any of the signs or symptoms listed on your discharge instruction sheets, worsening/changing of your symptoms, you are not getting better as quickly as expected, or for ANY other cause or concerns. Discharge Date/Time: 11/13/19 00:33 Coding Level of Care Code ED Optical Instrument Specialist for Chg Fwd Exam Comprehensive
[2019-11-12 22:55] LABS: Basophils # 0.1 10^3/uL (0.0-0.1); Basophils % 0.4 %; Eosinophils # 0.1 10^3/uL (0.0-0.8); Eosinophils % 0.4 %; Hematocrit 41.3 % (37.0-47.0); Hemoglobin 13.3 g/dL (11.5-15.3); Lymphocytes # 4.7 10^3/uL (0.8-4.8); Lymphocytes % 32.3 %; Mean Corpuscular HGB Conc 32.2 g/dL (30.0-36.0); Mean Corpuscular Hemoglobin 29.8 pg (28.0-34.0); Mean Corpuscular Volume 92.6 fL (81-99); Monocytes # 1.1 10^3/uL (0.2-0.9); Monocytes % 7.4 %; Neutrophils # 8.67 10^3/uL (1.8-7.7); Neutrophils % 59.2 %; Nucleated Red Blood Cells % 0 %; Platelet Count 388 10^3/cmm (130-400); Red Blood Count 4.46 10^6/uL (4.1-5.3); White Blood Count 14.6 10^3/uL (4.0-10.0)
[2019-11-12 23:06] LABS: HCG, Serum Qual Negative (Negative)
[2019-11-12 23:11] LABS: Add Urine Microscopic? YES; Amphetamines Screen Urine Negative (Negative); Barbiturates Screen Urine Negative (Negative); Benzodiazepines Screen Urine Negative (Negative); Bilirubin Urine Neg (Negative); Blood Urine 3+ (Negative); Cocaine Screen Urine Negative (Negative); Glucose Urine UA Norm (Normal); Ketones Urine Negative (Negative); Leukocyte Esterase Urine 1+ (Negative); Nitrate Urine Negative (Negative); Opiate Screen Urine Negative (Negative); PCP Screen Urine Negative (Negative); Protein Urine Neg (Negative); RBC Urine 0-4 /hpf (0-2); THC Screen Urine Negative (Negative); Urine Appearance SL Hazy (CLEAR); Urine Color Yellow (Yellow); Urobilinogen Urine Norm (Negative); pH Urine 5 (5-7)
[2019-11-12 23:12] LABS: Add Urine Culture? Yes; Bacteria Urine 2+ /hpf
[2019-11-12 23:25] LABS: Alanine Aminotransferase 12 U/L (0-33); Albumin Level 3.7 g/dL (3.5-5.2); Alkaline Phosphatase 45 IU/L (35-105); Anion Gap 12.9 (5-19); Aspartate Amino Transferase 16 U/L (0-32); Blood Urea Nitrogen 17 mg/dL (6-20); Calcium 9.6 mg/dL (8.5-10.5); Carbon Dioxide 25 mmol/L (22-29); Chloride 102 mmol/L (98-107); Globulin 3.2 g/dL (1.3-4.6); Glomerular Filtration Rate 94.7 mL/min (90-130); Glucose 98 mg/dL (65-115); Osmolality Calculated 284 mOsm/kg (285-295); Potassium 3.9 mmol/L (3.5-5.1); Sodium 136 mmol/L (136-145); Total Bilirubin 0.2 mg/dL (0.15-1.2); Total Protein 6.9 g/dL (6.6-8.7)
[2019-11-12 23:26] LABS: Acetaminophen < 5.0 ug/mL (10-30); Alcohol Level < 10 mg/dL (0-10); Salicylate < 0.3 mg/dL (3-10)
[2019-11-12 23:49] VITALS: PULSE 96; RESP 18; O2SAT 99
--- NOTE | 2019-11-13 00:14 | PC.NURSE ---
Police department has been called at this time due to pt refusing to leave room after multiple attempts to ask her to leave by security and hospital staff.
== END 2019-11-13 00:33 | disposition home or self-care (01) ==
PROVIDERS: Emergency Provider Emergency Medicine; PCP Nurse Practitioner Family
DX: T18.9XXA Foreign body of alimentary tract, part unspecified, initial encounter (principal)
CPT/HCPCS: 12345; 74022; 80053; 80306; 80307; 81001; 84443; 84703; 85025; 87086; 99284

== ENCOUNTER → 2019-11-15 07:33 | Outpatient (BNVA) | payer MEDICAID, SELFPAY | PROVIDERS: PCP Nurse Practitioner Family; Visit Provider Nurse Practitioner | DX: F43.12 Post-traumatic stress disorder, chronic (principal); F70 Mild intellectual disabilities; F60.3 Borderline personality disorder | CPT/HCPCS: 99214 ==

== ENCOUNTER → 2019-11-21 08:30 | Outpatient (BNVA) | payer MEDICAID, SELFPAY | PROVIDERS: PCP Nurse Practitioner Family; Visit Provider Social Worker Clinical | DX: F70 Mild intellectual disabilities (principal); F43.12 Post-traumatic stress disorder, chronic; F60.3 Borderline personality disorder | CPT/HCPCS: 90832 ==

== ENCOUNTER → 2019-12-09 08:51 | Outpatient (BNVA) | payer MEDICAID, SELFPAY | PROVIDERS: PCP Nurse Practitioner Family; Visit Provider Social Worker Clinical | DX: F43.12 Post-traumatic stress disorder, chronic (principal); F70 Mild intellectual disabilities; F60.3 Borderline personality disorder | CPT/HCPCS: 90834 ==

== ENCOUNTER → 2019-12-10 07:31 | Outpatient (BNVA) | payer MEDICAID, SELFPAY | PROVIDERS: PCP Nurse Practitioner Family; Visit Provider Nurse Practitioner | DX: F43.12 Post-traumatic stress disorder, chronic (principal); F70 Mild intellectual disabilities; F60.3 Borderline personality disorder | CPT/HCPCS: 99213 ==

== ENCOUNTER → 2019-12-24 08:09 | Outpatient (BNVA) | payer MEDICAID, SELFPAY | PROVIDERS: PCP Nurse Practitioner Family; Visit Provider Social Worker Clinical | DX: F70 Mild intellectual disabilities (principal); F60.3 Borderline personality disorder; F43.12 Post-traumatic stress disorder, chronic | CPT/HCPCS: 90832 ==

== ENCOUNTER → 2019-12-24 09:48 | Outpatient (BNVA) | payer MEDICAID, SELFPAY | PROVIDERS: PCP Nurse Practitioner Family; Visit Provider Family Medicine | DX: Z11.1 Encounter for screening for respiratory tuberculosis (principal) | CPT/HCPCS: 86580 ==

== ENCOUNTER → 2020-01-07 07:45 | Outpatient (BNVA) | payer MEDICAID, SELFPAY | PROVIDERS: PCP Nurse Practitioner Family; Visit Provider Nurse Practitioner | DX: F43.12 Post-traumatic stress disorder, chronic (principal); F70 Mild intellectual disabilities; F60.3 Borderline personality disorder | CPT/HCPCS: 99214 ==

== ENCOUNTER → 2020-01-14 07:53 | Outpatient (BNVA) | payer MEDICAID, SELFPAY | PROVIDERS: PCP Nurse Practitioner Family; Visit Provider Social Worker Clinical | DX: F43.12 Post-traumatic stress disorder, chronic (principal); F60.3 Borderline personality disorder | CPT/HCPCS: 90832 ==

== ENCOUNTER 2020-02-01 20:31 | Emergency (ER) | payer MEDICAID, SELFPAY ==
[2020-02-01 20:40] VITALS: BP 118/77; PULSE 85; RESP 14; TEMP 36.7; O2SAT 99; BMI 30.9
--- NOTE | 2020-02-01 20:45 | XRR_ITS ---
PROCEDURE INFORMATION: Exam: XR Abdomen, 1 View Exam date and time: 02/01/2020 8:59 PM Age: 35 years old Clinical indication: Symptoms: PT states she swallowed a nail today; Additional info: Foreign body TECHNIQUE: Imaging protocol: XR of the abdomen. Views: Frontal supine view of the abdomen. 1 View. COMPARISON: CR XR acute abdomen series [id number] 11/12/2019 10:10 PM FINDINGS: Gastrointestinal tract: No evidence for bowel obstruction or perforation. No radiopaque foreign body. Intraperitoneal space: ntraperitoneal space: No free intraperitoneal air. Organs: No organomegaly. Bones/joints: Unremarkable. Soft tissues: No pathologic calcifications. No radiopaque foreign body. XR/XR KUB [id number] IMPRESSION: 1. No evidence for bowel obstruction or perforation. 2. No radiopaque foreign body.
--- NOTE | 2020-02-01 20:45 | XRR_ITS ---
PROCEDURE INFORMATION: Exam: XR Chest, 1 View Exam date and time: 02/01/2020 8:59 PM Age: 35 years old Clinical indication: Other: PT states she swallowed a nail; Additional info: Foreign body TECHNIQUE: Imaging protocol: XR of the chest Views: 1 view. COMPARISON: CR XR acute abdomen series [id number] 11/12/2019 10:10 PM FINDINGS: Lungs: Lungs are clear bilaterally. Pleural space: No pleural effusion. No pneumothorax. Heart/Mediastinum: The cardiac silhouette and mediastinal contours are unremarkable. No radiopaque foreign body. Bones/joints: Unremarkable for age. Soft tissues: No radiopaque foreign body. XR/XR chest 1V portable [id number] IMPRESSION: 1. No acute cardiopulmonary process. 2. No radiopaque foreign body.
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
[2020-02-01 22:29] VITALS: BP 109/66; PULSE 72; RESP 18; O2SAT 96
== END 2020-02-01 22:49 | disposition home or self-care (01) ==
PROVIDERS: Emergency Provider Physician Assistant; PCP Nurse Practitioner Family
DX: F60.3 Borderline personality disorder (principal)
CPT/HCPCS: 12345; 71045; 74018; 99284

== ENCOUNTER 2020-02-03 20:03 | Emergency (ER) | payer MEDICAID, SELFPAY ==
[2020-02-03 20:07] VITALS: BP 112/74; PULSE 99; RESP 18; TEMP 37; O2SAT 98; BMI 31.1
--- NOTE | 2020-02-03 20:08 | XR_ITS ---
WS: [id number] XR chest 1V [id number] REASON FOR EXAM: foreign body FINDINGS: The chest is unchanged compared to 02/01/2020. The heart and mediastinum are within normal limits. No active pulmonary parenchymal or pleural disease. No radiopaque foreign body is identified. XR/XR chest 1V [id number] IMPRESSION: No significant abnormality.
--- NOTE | 2020-02-03 20:08 | XR_ITS ---
WS: [id number] XR KUB [id number] REASON FOR EXAM: foreign body FINDINGS: Bowel gas pattern is unremarkable. No free air or retroperitoneal air. No radiopaque foreign body identified. XR/XR KUB [id number] IMPRESSION: No significant abnormality.
--- NOTE | 2020-02-03 20:31 | ED_ITS ---
HPI - General Adult General: Chief complaint: General Medical Stated complaint: SWALLOWED A FAKE FLOWER Time Seen by Provider: 02/03/20 20:29 Source: patient Mode of arrival: ambulatory Limitations: no limitations History of Present Illness: HPI narrative: Shelby is a 35-year-old female well- known to us here the emergency department. Patient ingested a plastic flower the size of a dime just prior to arrival. She does not report any abdominal pain, nausea, vomiting or difficulty swallowing. Patient does this to get out of her environment in the senior care that she lives in. She has ingested serious things in the past that necessitated work-up. This time she is denying any other complaints or concerns. Patient does not admit to taking this to harm or kill herself but is very guarded with her information. She does want to speak with Dr. Kendall our psychiatrist.. Associated symptoms: Deny chest pain, dyspnea, headache(s), nausea, rash, palpitations, syncope or vomiting Review of Systems Const: Denies: fever(s) Eyes: Denies: change in vision or blurry vision ENMT: Denies: throat pain, hoarseness or swelling of lips/tongue Card: Denies: chest pain, palpitations, syncope, pre-syncope or dyspnea on exertion Resp: Denies: dyspnea, productive cough, non-productive cough, wheezing, change in phlegm color or hemoptysis GI: Denies: abdominal pain, nausea, vomiting or diarrhea : Denies: flank pain, dysuria, urinary frequency or urinary urgency Musc: Denies: neck pain, back pain or extremity pain Skin/Breast: Denies: rash or pruritus Neuro: Denies: headache(s), numbness in extremities, weakness in extremities or dizziness Hayden/Lymph: Denies: easy bruising, easy bleeding, petechiae or purpura All/Imm: Denies: urticaria or throat swelling PFSH ED PFSH: Medical History Constipation H/O swallowed foreign body Hypothyroidism Major depressive disorder, 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 Post-traumatic stress disorder, chronic Social History Smoking and tobacco status: never smoked Second hand smoke exposure: No Alcohol intake: never Caregiver/support person: Yes Lives independently: No Household members: other Details: LIVES IN A SKILLED NURSING Housing: Assisted Living Facility Marital status: Single Current occupational status: disabled History of recent travel: No Current gender identity: Female Additional social history: Patient states that she grew up in [place]. She is currently living in a senior care and is under guardianship. She enjoys playing games and eating hamburgers. She is despondent that there is no place in [place] where she can get a hamburger and does not know how to make one on her own. Female Reproductive History: Date of last menstrual period: 08/26/19 Physical Exam Const: COMMON NORMALS: no acute distress, patient oriented x3, no limitations and alert GENERAL APPEARANCE: cooperative HENMT: COMMON NORMALS: normocephalic, atraumatic, external ears normal, EAC's normal and Normal external nose present HEAD & SCALP: normal to inspection, normocephalic and atraumatic FACE & SINUS: normal facial exam and face symmetric NOSE: Normal external nose present and Normal nares present EX TERNAL EAR: Yes external ears normal EXTERNAL AUDITORY CANAL: EAC's normal MOUTH: Normal oral and palatal mucosa present, lip normal and tongue normal Eye: COMMON NORMALS: Equal, round and reactive pupils present and conjunctivae normal GENERAL EYE: appearance normal, both eyes and all related structures ALIGNMENT: Yes alignment normal PERIORBITAL: periorbital findings normal EYELID: eyelids normal CONJUNCTIVA: Yes conjunctivae normal SCLERA: sclerae normal PUPIL: Yes Equal, round and reactive pupils present Neck/C-Spine: COMMON NORMALS: full ROM, no lymphadenopathy, supple, no meningeal signs and no JVD GENERAL: Yes normal visual inspection and Yes trachea midline Chest: COMMONS NORMALS: normal inspection of the chest and normal palpation of entire chest wall Resp: COMMON NORMALS: normal respiratory effort, No retractions, No use of accessory muscles and clear to auscultation bilaterally EFFORT & INSPECTION: Yes able to speak in complete sentences and Yes symmetric chest movement AUSCULTATION: clear to auscultation bilaterally, no crackles, no rales, no rhonchi and no wheezes Cardio: COMMON NORMALS: no JVD, regular rate, regular rhythm, S1 normal heart sound present and S2 normal heart sound present RATE: regular rate RHYTHM: regular rhythm HEART SOUNDS: S1 normal heart sound present, S2 normal heart sound present, no click, no gallops, no murmurs and no rubs GI: COMMON NORMALS: Soft to palpation and No hepatosplenomegaly present PALPATION: Yes Soft to palpation, No Tenderness to palpation present (GI), No Guarding due to palpation present (GI), No Rigid due to palpation, Yes No hepatosplenomegaly present, No Hernia present, No Palpable mass present and No Pulsatile mass present : COMMON NORMALS: Yes no CVA tenderness BLADDER/KIDNEY EXAM: Yes no CVA tenderness EXTERNAL FEMALE EXAM: No Hernia present Back/Pelvis: COMMON NORMALS: no CVA tenderness, thoracic and lumbar spine normal to inspection, no thoracic nor lumbar tenderness and thoraco-lumbar ROM normal Extremity: COMMON NORMALS: normal to inspection, full ROM, capillary refill normal, no joint enlargement, no clubbing, cyanosis or edema and no calf tenderness Neuro: COMMON NORMALS: patient oriented x3, CN's II-XII intact bilaterally, moves all extremities, no focal motor deficits and no sensory deficits noted SENSORIUM/ORIENTATION: Yes alert MENINGEAL SIGNS: Yes no meningeal signs SPEECH: speech normal Psych: COMMON NORMALS: mental status grossly normal, Normal thought process present, cooperative, normal affect, speech normal and activity/motor behavior normal SPEECH: Yes normal speech THOUGHT PROCESS: Normal thought process present Skin: COMMON NORMALS: no rashes or lesions noted, turgor normal, no jaundice, no petechiae and no mottling GENERAL SKIN EXAM: no rashes or lesions noted and turgor normal Course Vital Signs: Vital signs: Vital Signs Temperature 98.6 F 02/03/20 20:07 Pulse Rate 72 02/03/20 21:34 Respiratory Rate 16 02/03/20 21:34 Blood Pressure 112/82 02/03/20 21:34 Pulse Oximetry 99 02/03/20 21:34 MDM - General Adult MDM Narrative: Medical decision making narrative: 2123 -patient's been cleared by Dr. Kendall from a psychiatric perspective. He does not deem her to be a risk to herself or others. Patient shows no sign of bowel obstruction, abdominal pain, perforated bowel or otherwise. The size of the foreign body that she ingested in the material that was made from should not pose a risk to her but should pass through her GI tract without difficulty. I going to discharge her home to follow-up with her regular doctor. The patient understands return if her symptoms change or worsen. Imaging Data^: CXR: Attestation: I personally reviewed and interpreted this imaging study as follows: My impression: No acute cardiopulmonary findings. KUB: Attestation: I personally reviewed and interpreted this imaging study as follows: My impression: No free air, no sign of obstruction. No foreign body visualized. Discharge Plan Discharge Patient Disposition: Home Clinical Impression: Swallowed foreign body Qualifiers: Encounter type: initial encounter Qualified Code(s): T18.9XXA - Foreign body of alimentary tract, part unspecified, initial encounter Condition: Stable Prescriptions: No Action acetaminophen 325 mg capsule 650 mg PO Q6H PRN (Reason: fever of 100.4 or greater and/or pain) Qty: 120 RF: 2 sulfamethoxazole-trimethoprim [Bactrim DS] 800-160 mg tablet 1 tab PO BID Qty: 20 RF: 0 levothyroxine 112 mcg capsule 112 mcg PO DAILY Qty: 30 RF: 3 topiramate 100 mg tablet 100 mg PO BEDTIME 30 Days Qty: 30 RF: 1 Depakote ER 250 mg tablet extended release 24 hr 500 mg PO BEDTIME 30 Days Qty: 30 RF: 1 hydroxyzine HCl 50 mg tablet 50 mg PO Q8H PRN (Reason: anxiety/agitation) Qty: 90 RF: 0 clonazepam 0.5 mg tablet 0.5 mg PO TID Qty: 90 RF: 0 aripiprazole 10 mg tablet 10 mg PO DAILY Qty: 30 RF: 5 trazodone 50 mg tablet 50 mg PO BEDTIME PRN (Reason: Sleep) 30 Days Qty: 30 RF: 1 polyethylene glycol 3350 [Miralax] 17 gram/dose powder 17 gm PO DAILY PRN (Reason: constipation) Qty: 238 RF: 2 venlafaxine 37.5 mg Capsule,Extended Release 24hr 37.5 mg PO DAILY Qty: 30 RF: 5 dextromethorphan-guaifenesin [Safe Tussin DM] 10-100 mg/5 mL liquid 10 ml PO Q6H PRN (Reason: unknown) RF: 0 Jaimiess 0.15 mg-30 mcg (84)/10 mcg (7) tablets,dose pack,3 month 1 tab PO DAILY RF: 0 Discharge Orders: Discharge ED (Routine); Ordered 02/03/20 Ordered By: Jeannette Ricardo Referrals: Ольга Quarles FNP [Primary Care Provider] - 1-3 days Discharge Diet: Advance as tolerated Discharge Activity: Increase activity as tolerated Patient Instructions: Foreign Body Ingestion (ED) Activity Restrictions/Additional Instructions: Please return to the ER immediately for any of the signs or symptoms listed on your discharge instruction sheets, worsening/changing of your symptoms, you are not getting better as quickly as expected, or for ANY other cause or concerns. Return to ER for abdominal pain, vomiting, blood in your stools, or for any other cause for concern. Coding Level of Care Code ED Implant Polisher for Chg Fwd Exam Comprehensive
[2020-02-03 21:34] VITALS: BP 112/82; PULSE 72; RESP 16; O2SAT 99
== END 2020-02-03 21:46 | disposition home or self-care (01) ==
PROVIDERS: Emergency Provider Emergency Medicine; PCP Nurse Practitioner Family
DX: T18.9XXA Foreign body of alimentary tract, part unspecified, initial encounter (principal)
CPT/HCPCS: 12345; 71045; 74018; 99282; 99283

== ENCOUNTER → 2020-02-04 08:04 | Outpatient (BNVA) | payer MEDICAID, SELFPAY | PROVIDERS: PCP Nurse Practitioner Family; Visit Provider Social Worker Clinical | DX: F43.12 Post-traumatic stress disorder, chronic (principal); F70 Mild intellectual disabilities; F60.3 Borderline personality disorder | CPT/HCPCS: 90834 ==

== ENCOUNTER 2020-02-12 13:29 | Outpatient (CLI) | payer MEDICAID, SELFPAY | END 2020-02-12 13:30 | disposition home or self-care (01) | LOC: SPT 13:29 | PROVIDERS: PCP Nurse Practitioner Family; Visit Provider Podiatrist Foot & Ankle Surgery | DX: Z46.89 Encounter for fitting and adjustment of other specified devices (principal); S93.401D Sprain of unspecified ligament of right ankle, subsequent encounter; X58.XXXD Exposure to other specified factors, subsequent encounter | CPT/HCPCS: L1902 ==

== ENCOUNTER → 2020-02-18 07:36 | Outpatient (BNVA) | payer MEDICAID, SELFPAY | PROVIDERS: PCP Nurse Practitioner Family; Visit Provider Nurse Practitioner | DX: F70 Mild intellectual disabilities (principal); F43.12 Post-traumatic stress disorder, chronic; F60.3 Borderline personality disorder | CPT/HCPCS: 99213 ==

== ENCOUNTER → 2020-02-19 08:16 | Outpatient (BNVA) | payer MEDICAID, SELFPAY | PROVIDERS: PCP Nurse Practitioner Family; Visit Provider Social Worker Clinical | DX: F60.3 Borderline personality disorder (principal); F70 Mild intellectual disabilities | CPT/HCPCS: 90832 ==

== ENCOUNTER → 2020-02-26 08:34 | Outpatient (BNVA) | payer MEDICAID, SELFPAY | PROVIDERS: PCP Nurse Practitioner Family; Visit Provider Counselor Professional | DX: F60.3 Borderline personality disorder (principal); F70 Mild intellectual disabilities; F43.12 Post-traumatic stress disorder, chronic | CPT/HCPCS: 90832 ==

== ENCOUNTER → 2020-03-11 08:27 | Outpatient (BNVA) | payer MEDICAID, SELFPAY | PROVIDERS: PCP Nurse Practitioner Family; Visit Provider Counselor Professional | DX: F60.3 Borderline personality disorder (principal); F70 Mild intellectual disabilities; F43.12 Post-traumatic stress disorder, chronic | CPT/HCPCS: 90832 ==

== ENCOUNTER → 2020-03-31 07:49 | Outpatient (BNVA) | payer MEDICAID, SELFPAY | PROVIDERS: PCP Nurse Practitioner Family; Visit Provider Nurse Practitioner | DX: F70 Mild intellectual disabilities (principal); F43.12 Post-traumatic stress disorder, chronic; F60.3 Borderline personality disorder | CPT/HCPCS: 99214 ==

== ENCOUNTER → 2020-04-01 09:18 | Outpatient (BNVA) | payer MEDICAID, SELFPAY | PROVIDERS: PCP Nurse Practitioner Family; Visit Provider Counselor Professional | DX: F70 Mild intellectual disabilities (principal); F43.12 Post-traumatic stress disorder, chronic; F60.3 Borderline personality disorder | CPT/HCPCS: 90832 ==

== ENCOUNTER 2020-04-21 16:23 | Emergency (ER) | payer MEDICAID, SELFPAY ==
[2020-04-21 16:27] VITALS: BP 124/81; PULSE 102; RESP 18; TEMP 36.5; O2SAT 99; BMI 29.2
--- NOTE | 2020-04-21 16:34 | XRR_ITS ---
PROCEDURE INFORMATION: Exam: XR Abdomen Exam date and time: 04/21/2020 4:59 PM Age: 35 years old Clinical indication: Other: Foreign body; Patient HX: Swallowed thumb tack; Additional info: Swallowed fb TECHNIQUE: Imaging protocol: XR of the abdomen. Views: Frontal supine view of the abdomen. 1 View. COMPARISON: CR XR KUB [id number] 02/03/2020 8:21 PM FINDINGS: Gastrointestinal tract: Normal. No bowel dilation. A 17.8 mm metallic tack is seen in the projection of the left lower quadrant likely in the small bowel. This finding was not present on prior examination. Bones/joints: Unremarkable. XR/XR KUB portable [id number] IMPRESSION: 1. A metallic foreign body is seen in the left lower quadrant likely in the small bowel. 2. Otherwise No acute findings.
--- NOTE | 2020-04-21 16:34 | XR_ITS ---
WS: [id number] Portable AP upright chest, 04/21/2020 Clinical Data: swallowed FB Comparison: PA chest, 02/03/2020. Findings: No radiopaque foreign body is seen overlying the mediastinum, lungs or upper abdomen. The h eart and lungs are normal. XR/XR chest 1V portable [id number] Impression: Negative for radiopaque foreign body.
--- NOTE | 2020-04-21 18:16 | ED_ITS ---
HPI - Psych General: Chief Complaint: Psychiatric Symptoms Stated Complaint: Swallowed Thumbtack Time Seen by Provider: 04/21/20 18:14 Source: patient and other (Staff from [facility]) Mode of arrival: ambulatory Limitations: other (Borderline intelligent functioning) History of Present Illness: HPI Narrative: 35-year-old female patient who resides in a retirement, [facility], presents to the emergency department with [facility] staff with complaints of, want to kill myself , she approximately 3 PM this afternoon, she states swallowed a tack, in attempt to harm herself. She denies abdominal pain, she reports has history of swallowing items with auditory hallucinations. She reports hearing voices, states the voices told her to do bad things such as kill her self. She has several emergency room visits in the past with similar complaint. She is accompanied with [facility] staff. Staff reports she is constantly under supervision but there was a circumstance tonight that occurred that enabled her to obtain a tack in which she swallowed. MD complaint: suicidal ideation and feels depressed Duration: constant History of same: Yes Relieving factors: medication Associated psychiatric symptoms: depression, suicidal ideation and auditory hallucinations Associated symptoms: Reports auditory hallucinations, depression and suicidal ideation; Deny visual hallucinations or homicidal ideation Treatments prior to arrival: none If self harm: has acted on plan and self-inflicted trauma Review of Systems General: Reports: 10 or more systems reviewed and unremarkable except in HPI and below Const: Denies: fever(s), chills or diaphoresis Eyes: Denies: blurry vision or eye redness ENMT: Denies: throat pain, dental pain or disequilibrium Card: Denies: chest pain, palpitations or irregular heart rhythm Resp: Denies: dyspnea, productive cough, non-productive cough or wheezing GI: Denies: abdominal pain, nausea or vomiting : Denies: difficulty voiding or dysuria Musc: Denies: neck pain, back pain, joint pain, joint swelling, muscle cramps or muscle weakness Skin/Breast: Denies: rash or pruritus Neuro: Reports: other (History of seizure disorder with last seizure years ago); Denies: headache(s), numbness in extremities, weakness in extremities, sensory changes, difficulty walking, confusion, behavioral changes, seizure-like activity or involuntary movements Psych: Reports: anxiety, depression, auditory hallucinations and suicidal ideation; Denies: hopelessness, loss of interest, difficulty concentrating, visual hallucinations or homicidal ideation Hayden/Lymph: Denies: easy bruising PFSH ED PFSH: Medical History (Updated 04/21/20 @ 22:43 by WATSON Ridley) Constipation H/O swallowed foreign body Hypothyroidism Major depressive disorder, 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 Post-traumatic stress disorder, chronic Social History Smoking and tobacco status: never smoked Second hand smoke exposure: No Alcohol intake: never Caregiver/support person: Yes Lives independently: No Household members: other Details: LIVES IN A [facility] Housing: Assisted Living Facility Marital status: Single Current occupational status: disabled History of recent travel: No Current gender identity: Female Additional social history: Patient states that she grew up in [place]. She is currently living in a retirement and is under guardianship. She enjoys playing games and eating hamburgers. She is despondent that there is no place in [place] where she can get a hamburger and does not know how to make one on her own. Female Reproductive History: Date of last menstrual period: 08/26/19 Physical Exam Const: COMMON NORMALS: no acute distress, average body habitus, patient oriented x3, healthy appearing, alert and well nourished GENERAL APPEARANCE: cooperative, comfortable, well kempt, well developed and well hydrated; not anxious, not combative and not ill appearing NUTRITIONAL APPEARANCE: overweight ORIENTATION/CONSCIOUSNESS: Yes awake, Yes oriented to person, Yes oriented to place and Yes oriented to time HENMT: COMMON NORMALS: normocephalic, atraumatic, external ears normal, Normal external nose present and moist oral mucous membranes HEAD & SCALP: normal to inspection, normocephalic and atraumatic NOSE: Normal external nose present EXTERNAL EAR: Yes external ears normal MOUTH: Normal oral and palatal mucosa present, lip normal and tongue normal THROAT: posterior oropharynx normal, tonsils normal and uvula midline Eye: COMMON NORMALS: Equal, round and reactive pupils present and EOMs intact bilaterally GENERAL EYE: appearance normal, both eyes and all related structures PUPIL: Yes Equal, round and reactive pupils present Neck/C-Spine: COMMON NORMALS: full ROM, no lymphadenopathy and no meningeal signs GENERAL: Yes normal visual inspection and Yes trachea midline CERVICAL SPINE: Yes cervical ROM normal Lymph: LYMPHATIC: no lymphadenopathy noted Chest: COMMONS NORMALS: normal inspection of the chest and normal palpation of entire chest wall Resp: COMMON NORMALS: normal respiratory effort and clear to auscultation bilaterally AUSCULTATION: clear to auscultation bilaterally Cardio: COMMON NORMALS: regular rate, regular rhythm, S1 normal heart sound present, S2 normal heart sound present and Peripheral pulses 2+ throughout RATE: regular rate RHYTHM: regular rhythm HEART SOUNDS: S1 normal heart sound present, S2 normal heart sound present and Normal, physiologic split S2 sound present PERIPHERAL PULSES: Peripheral pulses 2+ throughout GI: COMMON NORMALS: Normal to inspection, nondistended, normoactive bowel sounds present, Soft to palpation and non-tender INSPECTION: Yes normal to inspection, No Abdominal wall edema, No Anasarca, No abdominal distension, No incision and No Localized GI swelling present AUSCULTATION: Yes normoactive bowel sounds PALPATION: Yes Soft to palpation, No Tenderness to palpation present (GI) and No Rigid due to palpation : COMMON NORMALS: Yes no CVA tenderness BLADDER/KIDNEY EXAM: Yes no CVA tenderness Back/Pelvis: COMMON NORMALS: no CVA tenderness and thoracic and lumbar spine normal to inspection Extremity: COMMON NORMALS: normal to inspection, full ROM, capillary refill normal, no clubbing, cyanosis or edema and no pedal edema GENERAL: Yes normal exam except as noted Neuro: COMMON NORMALS: patient oriented x3 and no focal motor deficits SENSORIUM/ORIENTATION: Yes alert, Yes oriented to person, Yes oriented to place and Yes oriented to time MENINGEAL SIGNS: Yes no meningeal signs SPEECH: speech normal GAIT: Yes Normal gait present MOTOR EXAM: 5/5 motor strength present throughout Psych: COMMON NORMALS: mental status grossly normal, cooperative, normal a ffect and denies homicidal ideation APPEARANCE: Yes grossly normal and Yes well kempt ATTITUDE: Yes calm and Yes Withdrawn affect present ACTIVITY/MOTOR BEHAVIOR: Yes appropriate eye contact and Yes psychomotor slowing SPEECH: Yes minimal and Yes slow THOUGHT PROCESS: Circumstantial thought process present THOUGHT CONTENT: Yes Suicidality present ATTENTION/CONCENTRATION: Yes attention grossly intact MEMORY/COGNITION: Yes memory grossly intact INSIGHT: Good insight present (Psych) JUDGEMENT: Good judgement present (Psych) Skin: COMMON NORMALS: no rashes or lesions noted and turgor normal GENERAL SKIN EXAM: no rashes or lesions noted, elasticity normal and turgor normal HAIR: normal NAILS: normal MDM - Psych Lab Data: Labs: Lab Results 04/21/20 04/21/20 04/21/20 Range/Units 20:45 20:45 21:00 WBC 13.9 H (4.0-10.0) 10^3/ uL RBC 4.45 (4.1-5.3) 10^6/u L Hgb 13.9 (11.5-15.3) g/dL Hct 43.0 (37.0-47.0) % MCV 96.6 (81-99) fL MCH 31.2 (28.0-34.0) pg MCHC 32.3 (30.0-36.0) g/dL RDW 14.4 (12.1-15.1) % Plt Count 393 (130-400) 10^3/c mm MPV 10.3 (7.4-10.4) fL Lymph % (Auto) Not Reportable Wilcox % (Auto) Not Reportable Lymph # (Auto) Not Reportable Wilcox # (Auto) Not Reportable Total Counted 100 (0-100) Atypical Lymphs % 16.0 H (0-5) % Absolute Neutrophi ls 6.5 (1.4-6.5) 10^3/c mm Segmented Neutroph ils 47 % Abs Segm Neuts (Ma n) 6.5 (1.6-7.1) 10/cmm Band Neutrophils 0.0 % Abs Band Neuts (Ma n) 0.0 (0.0-1.2) 10^3/c mm Lymphocytes (Manua l) 29 % Monocytes (Manual) 5.0 % Absolute Monocytes 0.7 H (0.1-0.6) 10^3/c mm Eosinophils (Manua l) 1 % Absolute Eosinophi ls 0.1 (0.0-0.7) 10^3/c mm Basophils (Manual) 2.0 % Absolute Basophils 0.3 H (0.0-0.2) 10^3/c mm Platelet Estimate Normal (Normal) Anisocytosis Trace Sodium (136-145) mmol/L Potassium (3.5-5.1) mmol/L Chloride (98-107) mmol/L Carbon Dioxide (22-29) mmol/L Anion Gap (5-19) BUN (6-20) mg/dL Creatinine (0.5-0.9) mg/dL GFR Calculation (90-130) mL/min Glucose (65-115) mg/dL Calculated Osmolal ity (285-295) mOsm/k g Calcium (8.5-10.5) mg/dL Total Bilirubin (0.15-1.2) mg/dL AST (0-32) U/L ALT (0-33) U/L Alkaline Phosphata se (35-105) IU/L Total Protein (6.6-8.7) g/dL Albumin (3.5-5.2) g/dL Globulin (1.3-4.6) g/dL TSH (0.27-4.20) uIU/ mL Urine HCG, Qual Negative (Negative) Salicylates (3-10) mg/dL Urine Opiates Scre en Negative (Negative) ng/mL Acetaminophen (10-30) ug/mL Ur Barbiturates Sc reen Negative (Negative) ng/mL Valproic Acid (50-100) ug/mL Ur Phencyclidine S crn Negative (Negative) ng/mL Ur Amphetamines Sc reen Negative (Negative) ng/mL U Benzodiazepines Scrn Negative (Negative) ng/mL Urine Cocaine Scre en Negative (Negative) ng/mL U Marijuana (THC) Screen Negative (Negative) ng/mL Ethyl Alcohol (0-10) mg/dL 04/21/20 04/21/20 Range/Units 21:00 21:00 WBC (4.0-10.0) 10^3/ uL RBC (4.1-5.3) 10^6/u L Hgb (11.5-15.3) g/dL Hct (37.0-47.0) % MCV (81-99) fL MCH (28.0-34.0) pg MCHC (30.0-36.0) g/dL RDW (12.1-15.1) % Plt Count (130-400) 10^3/c mm MPV (7.4-10.4) fL Lymph % (Auto) Wilcox % (Auto) Lymph # (Auto) Wilcox # (Auto) Total Counted (0-100) Atypical Lymphs % (0-5) % Absolute Neutrophi ls (1.4-6.5) 10^3/c mm Segmented Neutroph ils % Abs Segm Neuts (Ma n) (1.6-7.1) 10/cmm Band Neutrophils % Abs Band Neuts (Ma n) (0.0-1.2) 10^3/c mm Lymphocytes (Manua l) % Monocytes (Manual) % Absolute Monocytes (0.1-0.6) 10^3/c mm Eosinophils (Manua l) % Absolute Eosinophi ls (0.0-0.7) 10^3/c mm Basophils (Manual) % Absolute Basophils (0.0-0.2) 10^3/c mm Platelet Estimate (Normal) Anisocytosis Sodium 141 (136-145) mmol/L Potassium 4.2 (3.5-5.1) mmol/L Chloride 105 (98-107) mmol/L Carbon Dioxide 25 (22-29) mmol/L Anion Gap 15.2 (5-19) BUN 20 (6-20) mg/dL Creatinine 0.7 (0.5-0.9) mg/dL GFR Calculation 94.2 (90-130) mL/min Glucose 70 (65-115) mg/dL Calculated Osmolal ity 293 (285-295) mOsm/k g Calcium 9.1 (8.5-10.5) mg/dL Total Bilirubin 0.2 (0.15-1.2) mg/dL AST 17 (0-32) U/L ALT 11 (0-33) U/L Alkaline Phosphata se 46 (35-105) IU/L Total Protein 6.8 (6.6-8.7) g/dL Albumin 3.9 (3.5-5.2) g/dL Globulin 2.9 (1.3-4.6) g/dL TSH 1.68 (0.27-4.20) uIU/ mL Urine HCG, Qual (Negative) Salicylates < 0.3 L (3-10) mg/dL Urine Opiates Scre en (Negative) ng/mL Acetaminophen < 5.0 L (10-30) ug/mL Ur Barbiturates Sc reen (Negative) ng/mL Valproic Acid 20.4 L (50-100) ug/mL Ur Phencyclidine S crn (Negative) ng/mL Ur Amphetamines Sc reen (Negative) ng/mL U Benzodiazepines Scrn (Negative) ng/mL Urine Cocaine Scre en (Negative) ng/mL U Marijuana (THC) Screen (Negative) ng/mL Ethyl Alcohol < 10 (0-10) mg/dL Imaging Data^: Xray Ortho: Radiologist's impression: [facility] [address] [place] [address] XRay Report Signed Patient: Shelby Cherry Unit #: [id number] : 1985 Age/Sex: 35 / F ADM Date: 04/21/20 Loc: ER Room/Bed: Attending Dr: Ordering Provider/Ordering MD: James Perez Date of Service: 04/21/20 Procedure(s): XR KUB portable [id number] Accession Number(s): [id number] Report Number: [id number] PROCEDURE INFORMATION: Exam: XR Abdomen Exam date and time: 04/21/2020 4:59 PM Age: 35 years old Clinical indication: Other: Foreign body; Patient HX: Swallowed thumb tack; Additional info: Swallowed fb TECHNIQUE: Imaging protocol: XR of the abdomen. Views: Frontal supine view of the abdomen. 1 View. COMPARISON: CR XR KUB [id number] 02/03/2020 8:21 PM FINDINGS: Gastrointestinal tract: Normal. No bowel dilation. A 17.8 mm metallic tack is seen in the projection of the left lower quadrant likely in the small bowel. This finding was not present on prior examination. Bones/joints: Unremarkable. XR/XR KUB portable [id number] IMPRESSION: 1. A metallic foreign body is seen in the left lower quadrant likely in the small bowel. 2. Otherwise No acute findings. Dictated By: Alvaro Chapman Signed By: Alvaro Chapman Signed Date/Time: 04/21/201834 DD/ 32 Discharge Plan Discharge Patient Disposition: Home Clinical Impression: Major depression with psychotic features, Suicidal ideation Foreign body, swallowed Qualifiers: Encounter type: initial encounter Qualified Code(s): T18.9XXA - Foreign body of alimentary tract, part unspecified, initial encounter Condition: Stable Prescriptions: No Action hydroxyzine HCl 50 mg tablet 50 mg PO Q8H MDD 3 tabs PRN (Reason: anxiety/agitation) Qty: 90 RF: 0 trazodone 50 mg tablet 50 mg PO BEDTIME PRN (Reason: Sleep) 30 Days Qty: 30 RF: 1 polyethylene glycol 3350 [Miralax] 17 gram/dose powder 17 gm PO DAILY PRN (Reason: constipation) Qty: 238 RF: 2 acetaminophen 325 mg capsule 650 mg PO Q6H PRN (Reason: fever of 100.4 or greater and/or pain) Qty: 120 RF: 2 dextromethorphan-guaifenesin [Safe Tussin DM] 10-100 mg/5 mL liquid 10 ml PO Q6H PRN (Reason: cough) Qty: 500 RF: 0 venlafaxine 37.5 mg capsule,extended release 24hr 37.5 mg PO DAILY@08 RF: 0 clonazepam 0.5 mg tablet 0.5 mg PO TID@08,12,20 RF: 0 topiramate 100 mg tablet 100 mg PO BEDTIME@20 RF: 0 levothyroxine 112 mcg tablet 112 mcg PO DAILY@07 RF: 0 aripiprazole 10 mg tablet 10 mg PO DAILY@20 RF: 0 Depakote ER 250 mg tablet extended release 24 hr 500 mg PO BEDTIME@20 RF: 0 Jaimiess 0.15 mg-30 mcg (84)/10 mcg (7) tablets,dose pack,3 month 1 tab PO DAILY@08 RF: 0 Discharge Orders: Discharge ED (Routine); Ordered 04/21/20 Ordered By: Rosamaria Blandon Referrals: Ольга Quarles FNP [Primary Care Provider] - Discharge Diet: Usual diet Discharge Activity: Resume usual activity Patient Instructions: Foreign Body - Swallowed, Depression (ED), Opioid Safety, Suicidal Ideation Activity Restrictions/Additional Instructions: Continue current medications, follow-up with psychiatry tomorrow for medication evaluation Monitor for signs and symptoms of bowel perforation, gastric bleeding, vomiting blood or complaints of severe abdominal pain Return to the emergency department if such happens Please keep items away from the patient that can be dangerous to the patient if swallowed Coding Level of Care Code ED Technical Writer for Lasha Fwd Exam Comprehensive
--- NOTE | 2020-04-21 18:57 | ECG_ITS ---
[facility] Test Date: 2020-04-21 Pat Name: Shelby Cherry Department: Room: Gender: Female Die Grinder: : 1985 Requested By: Rosamaria Vaca Order Number: [id number] Kaylin MD: Claudio Szymanski M.D. Measurements Intervals [place] Rate: 99 P: 34 GA: 132 QRS: 25 QRSD: 71 T: 24 QT: 322 QTc: 414 Interpretive Statements SINUS RHYTHM MODERATE VOLTAGE CRITERIA FOR LVH, CONSIDER NORMAL VARIANT [MEETS CRITERIA IN ONE OF: R(aVL), S(V1), R(V5), R(V5/V6)+S(V1)] Compared to ECG 09/22/2019 21:23:12 No significant changes Electronically Signed On 04-22-2020 20:58:07 EXTRUSION PRESS SUPERVISOR by Claudio Szymanski M.D. [id number]
[2020-04-21 21:33] LABS: Hemoglobin 13.9 g/dL (11.5-15.3); Mean Corpuscular HGB Conc 32.3 g/dL (30.0-36.0); Mean Corpuscular Hemoglobin 31.2 pg (28.0-34.0); Mean Corpuscular Volume 96.6 fL (81-99); Mean Platelet Volume 10.3 fL (7.4-10.4); Platelet Count 393 10^3/cmm (130-400); Red Blood Count 4.45 10^6/uL (4.1-5.3); Red Cell Distribution Width 14.4 % (12.1-15.1); White Blood Count 13.9 10^3/uL (4.0-10.0)
[2020-04-21 21:48] LABS: Amphetamines Screen Urine Negative (Negative); Barbiturates Screen Urine Negative (Negative); Benzodiazepines Screen Urine Negative (Negative); Cocaine Screen Urine Negative (Negative); Opiate Screen Urine Negative (Negative); PCP Screen Urine Negative (Negative); THC Screen Urine Negative (Negative)
[2020-04-21 21:51] LABS: Valproic Acid Level 20.4 ug/mL (50-100)
[2020-04-21 21:57] LABS: Alanine Aminotransferase 11 U/L (0-33); Albumin Level 3.9 g/dL (3.5-5.2); Alkaline Phosphatase 46 IU/L (35-105); Anion Gap 15.2 (5-19); Aspartate Amino Transferase 17 U/L (0-32); Blood Urea Nitrogen 20 mg/dL (6-20); Calcium 9.1 mg/dL (8.5-10.5); Carbon Dioxide 25 mmol/L (22-29); Chloride 105 mmol/L (98-107); Creatinine Clr Calc Pharmacy 110.5916; Globulin 2.9 g/dL (1.3-4.6); Glomerular Filtration Rate 94.2 mL/min (90-130); Glucose 70 mg/dL (65-115); Osmolality Calculated 293 mOsm/kg (285-295); Potassium 4.2 mmol/L (3.5-5.1); Sodium 141 mmol/L (136-145); Thyroid Stimulating Hormone 1.68 uIU/mL (0.27-4.20); Total Bilirubin 0.2 mg/dL (0.15-1.2); Total Protein 6.8 g/dL (6.6-8.7)
[2020-04-21 21:58] LABS: Acetaminophen < 5.0 ug/mL (10-30); Alcohol Level < 10 mg/dL (0-10); Salicylate < 0.3 mg/dL (3-10)
[2020-04-21] MEDS: divalproex ER 500 mg Tablet (24H) PO (22:25)
[2020-04-21 22:27] LABS: Absolute Eosinophils 0.1 10^3/cmm (0.0-0.7); Absolute Segmented Neutrophil 6.5 10/cmm (1.6-7.1); Basophils Absolute 0.3 10^3/cmm (0.0-0.2); Eosinophils 1 %; Lymphocytes 29 %; Monocytes Absolute 0.7 10^3/cmm (0.1-0.6); Segmented Neutrophils 47 %; Slide Review Slide Review Perform; Total Cells Counted 100 (0-100)
[2020-04-21 22:28] LABS: Absolute Neutrophil 6.5 10^3/cmm (1.4-6.5); Anisocytosis Trace; Platelet Estimate Normal (Normal)
[2020-04-21 23:17] VITALS: BP 138/72; PULSE 91; RESP 18; O2SAT 97
== END 2020-04-21 23:20 | disposition home or self-care (01) ==
PROVIDERS: Emergency Provider Nurse Practitioner Family; PCP Nurse Practitioner Family
DX: T18.9XXA Foreign body of alimentary tract, part unspecified, initial encounter (principal); F32.3 Major depressive disorder, single episode, severe with psychotic features; R45.851 Suicidal ideations
CPT/HCPCS: 71045; 74018; 80053; 80164; 80306; 80307; 81025; 84443; 85007; 85025; 93005; 99284

== ENCOUNTER → 2020-04-22 14:52 | Outpatient (BNVA) | payer MEDICAID, SELFPAY | PROVIDERS: PCP Nurse Practitioner Family; Visit Provider Nurse Practitioner Family | DX: T18.9XXA Foreign body of alimentary tract, part unspecified, initial encounter (principal); R45.851 Suicidal ideations; Z68.34 Body mass index [BMI] 34.0-34.9, adult | CPT/HCPCS: 74018 ==

== ENCOUNTER → 2020-04-24 07:40 | Outpatient (BNVA) | payer MEDICAID, SELFPAY | PROVIDERS: PCP Nurse Practitioner Family; Visit Provider Nurse Practitioner | DX: F43.12 Post-traumatic stress disorder, chronic (principal); F60.3 Borderline personality disorder; F70 Mild intellectual disabilities | CPT/HCPCS: 99214 ==

== ENCOUNTER 2020-04-28 05:43 | Emergency (ER) | payer MEDICAID, SELFPAY ==
[2020-04-28 05:43] VITALS: BP 123/80; PULSE 99; RESP 16; TEMP 36.6; O2SAT 97
--- NOTE | 2020-04-28 05:54 | W.ED.PSYCH ---
HPI - Psych General: Chief Complaint: Psychiatric Symptoms Stated Complaint: MHE Time Seen by Provider: 04/28/20 05:47 History of Present Illness: HPI Narrative: 35 yo female seen emergency room via EMS. She is a resident of a long-term. She had wandered off and was found at a local [facility]. She told him that she needed an ambulance because she did not feel good. When EMS arrived they told him that she was having auditory hallucinations voices were telling her to hurt herself with a knife. I asked patient if she was hurting anywhere she states her knees hurt a bit because she was crawling around after she left the long-term. She was ambulatory coming in here. When asked her she to harm her self she referred to some superficial scratches on the left wrist. They are barely visible. MD complaint: suicidal ideation Onset (ago): hour(s) Duration: constant History of same: Yes Relieving factors: none Exacerbating factors: none Associated psychiatric symptoms: suicidal ideation and auditory hallucinations Associated symptoms: Reports auditory hallucinations and suicidal ideation; Deny visual hallucinations, delusions, depression, homicidal ideation or racing thoughts Treatments prior to arrival: none If self harm: admits thoughts of self harm and has plan Review of Systems Const: Denies: fever(s), chills, body aches, change in appetite, fatigue or malaise ENMT: Denies: throat pain, ear or mastoid pain, nasal discharge or nasal congestion Card: Denies: chest pain, edema, dyspnea on exertion or orthopnea Resp: Denies: dyspnea, productive cough or non-productive cough GI: Denies: abdominal pain, nausea, vomiting, hematemesis, coffee ground emesis, diarrhea, constipation, bloating, hematochezia or melena : Denies: flank pain, difficulty voiding, dysuria, urinary frequency or urinary urgency Skin/Breast: Denies: rash or pruritus Psych: Reports: auditory hallucinations and suicidal ideation; Denies: depression, visual hallucinations or homicidal ideation [facility] ED PFSH: Medical History (Updated 04/28/20 @ 07:11 by Lee Hough DO) Constipation H/O swallowed foreign body Hypothyroidism Major depressive disorder, 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 Post-traumatic stress disorder, chronic Social History Smoking and tobacco status: never smoked Second hand smoke exposure: No Alcohol intake: never Caregiver/support person: Yes Lives independently: No Household members: other Details: LIVES IN A [facility] Housing: Assisted Living Facility Marital status: Single Current occupational status: disabled History of recent travel: No Current gender identity: Female Additional social history: Patient states that she grew up in [place]. She is currently living in a long-term and is under guardianship. She enjoys playing games and eating hamburgers. She is despondent that there is no place in [place] where she can get a hamburger and does not know how to make one on her own. Female Reproductive History: Date of last menstrual period: 08/26/19 Physical Exam Const: COMMON NORMALS: no acute distress GENERAL APPEARANCE: cooperative and comfortable HENMT: COMMON NORMALS: normocephalic, atraumatic and hearing grossly normal bilaterally HEAD & SCALP: normocephalic and atraumatic Neck/C-Spine: COMMON NORMALS: no JVD Resp: COMMON NORMALS: normal respiratory effort, No retractions, No use of accessory muscles and clear to auscultation bilaterally AUSCULTATION: clear to auscultation bilaterally Cardio: COMMON NORMALS: no JVD, regular rate, regular rhythm and No murmurs present (Cardio) RATE: regular rate RHYTHM: regular rhythm GI: COMMON NORMALS: Soft to palpation and No hepatosplenomegaly present AUSCULTATION: Yes normoactive bowel sounds PALPATION: Yes Soft to palpation, No Tenderness to palpation present (GI), No Guarding due to palpation present (GI) and Yes No hepatosplenomegaly present Extremity: COMMON NORMALS: normal to inspection, capillary refill normal, no clubbing, cyanosis or edema, no calf tenderness and no pedal edema Psych: THOUGHT CONTENT: No delusions Skin: COMMON NORMALS: no rashes or lesions noted GENERAL SKIN EXAM: no rashes or lesions noted MDM - Psych MDM Narrative: Medical decision making narrative: 0710 - Patient frequently has episodes such as this. Discussed with Dr. Kendall she is well acquainted with this patient. He does not feel that she needs to be admitted and plans to come and see the patient in the emergency room. 10:21 - Patient resting comfortably room awaiting Dr. Kendall for consultation. 10:47 ? [address]. Kendall seen the patient okay for discharge. Lab Data: Labs: Lab Results 04/28/20 04/28/20 04/28/20 Range/Units 05:00 05:00 07:03 WBC 11.5 H (4.0-10.0) 10^3/ uL RBC 4.81 (4.1-5.3) 10^6/u L Hgb 14.7 (11.5-15.3) g/dL Hct 46.5 (37.0-47.0) % MCV 96.7 (81-99) fL MCH 30.6 (28.0-34.0) pg MCHC 31.6 (30.0-36.0) g/dL RDW 14.1 (12.1-15.1) % Plt Count 387 (130-400) 10^3/c mm MPV 9.9 (7.4-10.4) fL Neut % (Auto) 52.9 % Lymph % (Auto) 38.9 % Fisher % (Auto) 6.6 % Eos % (Auto) 0.7 % Baso % (Auto) 0.6 % Neut # (Auto) 6.08 (1.8-7.7) 10^3/u L Lymph # (Auto) 4.5 (0.8-4.8) 10^3/u L Fisher # (Auto) 0.8 (0.2-0.9) 10^3/u L Eos # (Auto) 0.1 (0.0-0.8) 10^3/u L Baso # (Auto) 0.1 (0.0-0.1) 10^3/u L Nucleated RBC % (a uto) 0 % Nucleated RBCs # 0.0 /100WBC Sodium 138 (136-145) mmol/L Potassium 3.9 (3.5-5.1) mmol/L Chloride 103 (98-107) mmol/L Carbon Dioxide 25 (22-29) mmol/L Anion Gap 13.9 (5-19) BUN 15 (6-20) mg/dL Creatinine 0.7 (0.5-0.9) mg/dL GFR Calculation 94.2 (90-130) mL/min Glucose 77 (65-115) mg/dL Calculated Osmolal ity 286 (285-295) mOsm/k g Calcium 9.3 (8.5-10.5) mg/dL Total Bilirubin 0.3 (0.15-1.2) mg/dL AST 17 (0-32) U/L ALT 11 (0-33) U/L Alkaline Phosphata se 49 (35-105) IU/L Total Protein 7.5 (6.6-8.7) g/dL Albumin 3.7 (3.5-5.2) g/dL Globulin 3.8 (1.3-4.6) g/dL HCG, Qual Negative (Negative) Salicylates < 0.3 L (3-10) mg/dL Acetaminophen < 5.0 L (10-30) ug/mL Discharge Plan Discharge Clinical Impression: Mild intellectual disabilities, Major depression with psychotic features, Suicidal ideation Condition: Stable Prescriptions: No Action hydroxyzine HCl 50 mg tablet 50 mg PO Q8H MDD 3 tabs PRN (Reason: anxiety/agitation) Qty: 90 RF: 0 trazodone 50 mg tablet 50 mg PO BEDTIME PRN (Reason: Sleep) 30 Days Qty: 30 RF: 1 aripiprazole [Abilify] 15 mg tablet 15 mg PO DAILY Qty: 30 RF: 1 polyethylene glycol 3350 [Miralax] 17 gram/dose powder 17 gm PO DAILY PRN (Reason: constipation) Qty: 238 RF: 2 acetaminophen 325 mg capsule 650 mg PO Q6H PRN (Reason: fever of 100.4 or greater and/or pain) Qty: 120 RF: 2 dextromethorphan-guaifenesin [Safe Tussin DM] 10-100 mg/5 mL liquid 10 ml PO Q6H PRN (Reason: cough) Qty: 500 RF: 0 venlafaxine 37.5 mg capsule,extended release 24hr 37.5 mg PO DAILY@08 RF: 0 clonazepam 0.5 mg tablet 0.5 mg PO TID@08,12,20 RF: 0 topiramate 100 mg tablet 100 mg PO BEDTIME@20 RF: 0 levothyroxine 112 mcg tablet 112 mcg PO DAILY@07 RF: 0 Depakote ER 250 mg tablet extended release 24 hr 500 mg PO BEDTIME@20 RF: 0 Jaimiess 0.15 mg-30 mcg (84)/10 mcg (7) tablets,dose pack,3 month 1 tab PO DAILY@08 RF: 0 Discharge Orders: Discharge ED (Routine); Ordered 04/28/20 Ordered By: Lee Hough Referrals: Ольга Quarles FNP [Primary Care Provider] - Discharge Diet: Usual diet Discharge Activity: Resume usual activity Coding Level of Care Code ED Telephone Sterilizer for Chg Fwd Exam Comprehensive
[2020-04-28 06:08] LABS: Basophils # 0.1 10^3/uL (0.0-0.1); Basophils % 0.6 %; Eosinophils # 0.1 10^3/uL (0.0-0.8); Eosinophils % 0.7 %; Hematocrit 46.5 % (37.0-47.0); Hemoglobin 14.7 g/dL (11.5-15.3); Lymphocytes # 4.5 10^3/uL (0.8-4.8); Lymphocytes % 38.9 %; Mean Corpuscular HGB Conc 31.6 g/dL (30.0-36.0); Mean Corpuscular Hemoglobin 30.6 pg (28.0-34.0); Mean Corpuscular Volume 96.7 fL (81-99); Mean Platelet Volume 9.9 fL (7.4-10.4); Monocytes # 0.8 10^3/uL (0.2-0.9); Monocytes % 6.6 %; Neutrophils # 6.08 10^3/uL (1.8-7.7); Neutrophils % 52.9 %; Nucleated Red Blood Cells % 0 %; Platelet Count 387 10^3/cmm (130-400); Red Blood Count 4.81 10^6/uL (4.1-5.3); Red Cell Distribution Width 14.1 % (12.1-15.1); White Blood Count 11.5 10^3/uL (4.0-10.0)
[2020-04-28 06:25] LABS: Alanine Aminotransferase 11 U/L (0-33); Albumin Level 3.7 g/dL (3.5-5.2); Alkaline Phosphatase 49 IU/L (35-105); Anion Gap 13.9 (5-19); Aspartate Amino Transferase 17 U/L (0-32); Blood Urea Nitrogen 15 mg/dL (6-20); Calcium 9.3 mg/dL (8.5-10.5); Carbon Dioxide 25 mmol/L (22-29); Chloride 103 mmol/L (98-107); Globulin 3.8 g/dL (1.3-4.6); Glomerular Filtration Rate 94.2 mL/min (90-130); Glucose 77 mg/dL (65-115); Osmolality Calculated 286 mOsm/kg (285-295); Potassium 3.9 mmol/L (3.5-5.1); Sodium 138 mmol/L (136-145); Total Bilirubin 0.3 mg/dL (0.15-1.2); Total Protein 7.5 g/dL (6.6-8.7)
[2020-04-28 06:26] LABS: Acetaminophen < 5.0 ug/mL (10-30); Salicylate < 0.3 mg/dL (3-10)
[2020-04-28 07:18] LABS: HCG Qualitative Urine. Negative (Negative)
--- NOTE | 2020-04-28 07:20 | P.CONIM_ITS ---
Providers/Reason for Consult Consulting Physican/Specialty*: Rome Kendall MD. Psychiatry. Reason for Consult*: SI Requesting Physcian: Lee Hough MD Primary Care Provider: JACKIE Beverly Psych Consult HPI History of Present Illness Shelby Cherry is a 35 year old female who presented to the ED with the following report: Chief Complaint: Psychiatric Symptoms Stated Complaint: MHE Time Seen by Provider: 04/28/20 05:47 History of Present Illness: HPI Narrative: 35 yo female seen emergency room via EMS. She is a resident of a custodial. She had wandered off and was found at a local [facility]. She told him that she needed an ambulance because she did not feel good. When EMS arrived they told him that she was having auditory hallucinations voices were telling her to hurt herself with a knife. I asked patient if she was hurting anywhere she states her knees hurt a bit because she was crawling around after she left the custodial. She was ambulatory coming in here. When asked her she to harm her self she referred to some superficial scratches on the left wrist. They are barely visible. MD complaint: suicidal ideation Onset (ago): hour(s) Duration: constant History of same: Yes Relieving factors: none Exacerbating factors: none Associated psychiatric symptoms: suicidal ideation and auditory hallucinations Associated symptoms: Reports auditory hallucinations and suicidal ideation; Deny visual hallucinations, delusions, depression, homicidal ideation or racing thoughts Treatments prior to arrival: none If self harm: admits thoughts of self harm and has plan. A psychiatric consult was requested to evaluate the safety for discharge. Shelby is known to this tag writer and psychiatry through numerous previous hospitalizations and more recently multiple ED visits with reports of hearing voices, being suicidal, and needing admission. She has Intellectual disability, and borderline personality d/o and frequently swallows small non dangerous items. She was insistent that she had cut herself in a fit of suicidality but no cut was noted nor could she locate it. She was pleading for admission. PFSH NPU PFSH: Medical History (Updated 04/29/20 @ 16:26 by ERAN Fisher) Constipation H/O swallowed foreign body Hypothyroidism Major depressive disorder, 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 Post-traumatic stress disorder, chronic Social History (Reviewed 04/28/20 @ 07:02 by PARISH King Smoking and tobacco status: never smoked Second hand smoke exposure: No Alcohol intake: never Caregiver/support person: Yes Lives independently: No Household members: other Details: LIVES IN A INTERMEDIATE Housing: Assisted Living Facility Marital status: Single Current occupational status: disabled History of recent travel: No Current gender identity: Female Additional social history: Patient states that she grew up in [place]. She is currently living in a custodial and is under guardianship. She enjoys playing games and eating hamburgers. She is despondent that there is no place in [place] where she can get a hamburger and does not know how to make one on her own. Mental Status Exam MSE Comments: This is a well-nourished, well-developed, white female, with adequate dress, grooming, and limited eye contact. No abnormal movements except for psychomotor retardation. Cooperative with exam in mild and at times moderate distress. Speech was decreased rate and volume. Mood described as ?I hear voices?; affect slightly subdued. Thought process, linear. Thought content: patient endorsed suicidal but denied homicidal ideation, there were no delusions reported or noted, patient endorsed auditory but denied visual hallucinations. Attention, concentration appear intact and memory appeared unreliable but none were formally tested. Alert and oriented times three. Insight and judgment are impaired. Intellectual ability is impaired. Vitals/I&O/Wt Last Vital Signs Temp 97.9 F 04/28/20 07:25 Pulse 99 04/28/20 05:43 Resp 16 04/28/20 07:25 BP 123/80 04/28/20 05:43 Pulse Ox 97 04/28/20 07:25 Weight last 48 hrs Weight 79.379 kg A&P Additional A&P Information (1) Suicidal ideation: (2) Borderline personality disorder: (3) Major depressive disorder, recurrent severe without psychotic features: (4) Mild intellectual disabilities: (5) Post-traumatic stress disorder, chronic: This is a 34-year-old white female with a long history of PTSD, borderline personality disorder and poor impulse control with intellectual disability mild versus moderate who presents as she normally does endorsing suicidal thoughts and reporting that she is hearing voices without any affective of change to accompany her report. 1. Continue current medication. 2. Agree with not admitting.She is absent credible lethality, has borderline personality and would not benefit from inpatient treatment. 3. Refer to outpatient providers with whom she is current, for any medication changes. Involuntary Hold Information 96 Hour Hold: 96 Hour Involuntary Admission: No 96 Hour Hold Ending Date: 08/19/19 96 Hour Hold Ending Time: 07:00 Attestations NPU Medical Necessity Statement*: N/A. See primary provider for medical necessity, but agree admission not indicated. Coding Level of Care Code Acute Distribution Lineman for Lasha Turner
[2020-04-28 07:25] VITALS: RESP 16; TEMP 36.6; O2SAT 97
== END 2020-04-28 10:50 | disposition home or self-care (01) ==
PROVIDERS: Emergency Medicine; Emergency Provider Family Medicine; PCP Nurse Practitioner Family
DX: R45.851 Suicidal ideations (principal); F32.3 Major depressive disorder, single episode, severe with psychotic features; F70 Mild intellectual disabilities
CPT/HCPCS: 80053; 80307; 81025; 85025; 99284

== ENCOUNTER → 2020-04-29 08:17 | Outpatient (BNVA) | payer MEDICAID, SELFPAY | PROVIDERS: PCP Nurse Practitioner Family; Visit Provider Counselor Professional | DX: F60.3 Borderline personality disorder (principal); F70 Mild intellectual disabilities; F43.12 Post-traumatic stress disorder, chronic | CPT/HCPCS: 90832; 90846 ==

== ENCOUNTER 2020-04-29 14:38 | Emergency (ER) | payer MEDICAID, SELFPAY ==
[2020-04-29 14:53] VITALS: BP 126/81; PULSE 95; RESP 14; TEMP 36.3; O2SAT 95; BMI 33.9
--- NOTE | 2020-04-29 15:07 | XR_ITS ---
WS: [id number] KUB, AP view, 04/29/2020 Clinical Data: fb ingestion Comparison: KUB, 04/22/2020. Findings: There is a radiopaque metal object which is possibly in the distal transverse colon or stomach. This may represent a different foreign body and not the tack that was noted one week ago.. No other foreign bodies are seen. The bowel gas pattern shows no evidence of obstruction XR/XR KUB 63316 Impression: 1. Small metal radiopaque foreign body perhaps in the distal transverse colon o r the stomach. 2. Moderate generalized ileus.
--- NOTE | 2020-04-29 15:07 | XR_ITS ---
WS: [id number] Soft tissue view of the neck, AP and lateral, 04/29/2020 Clinical Data: fb ingestion Comparison: None. Findings: No radiopaque foreign body can be seen in the pharynx, hypopharynx or trachea. On the AP view no fore ign bodies can be seen over the superior lungs or the trachea. The cervical spine is normal. XR/XR soft tissue neck 82265 Impression: Negative for radiopaque foreign body.
--- NOTE | 2020-04-29 15:24 | W.ED.SKABFB ---
Documented by User: ERAN Fisher 04/30/20 07:02 HPI - Skin/Abscess/Foreign Bdy General: Chief complaint: Airway/Esophagus Foreign Body Stated complaint: swallowed a thumbtack Time Seen by Provider: 04/29/20 15:24 Source: patient and other (caregiver/staff) Mode of arrival: ambulatory Limitations: no limitations History of Present Illness: HPI narrative: Patient is a 35-year-old female who resides in an ISL at [facility] in [place], [place] here with her caregiver for evaluation after she states she swallowed a thumb tack. Patient has multiple ED visits for swallowing foreign bodies. She states she did this in a suicide attempt but caregiver states she often is just attention seeking. MD complaint: foreign body Onset (ago): hour(s) (approx 3 hours ago) Context: other (swallowing fb) Associated symptoms: Deny fever(s), nausea or vomiting Treatments prior to arrival: none Review of Systems Const: Denies: fever(s) ENMT: Reports: throat pain Card: Denies: chest pain Resp: Denies: dyspnea GI: Denies: abdominal pain, nausea, vomiting, hematemesis, coffee ground emesis, dysphagia, heartburn, diarrhea, hematochezia or melena Musc: Denies: neck pain or back pain Skin/Breast: Denies: rash Neuro: Denies: headache(s) [facility] ED PFSH: Medical History (Updated 04/29/20 @ 16:26 by ERAN Fisher) Constipation H/O swallowed foreign body Hypothyroidism Major depressive disorder, 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 She is currently living in a residential and is under guardianship. She enjoys playing games and eating hamburgers. She is despondent that there is no place in [place] where she can get a hamburger and does not know how to make one on her own. Female Reproductive History: Date of last menstrual period: 08/26/19 Physical Exam Const: COMMON NORMALS: no acute distress, average body habitus, patient oriented x3, healthy appearing, alert and well nourished EXAM LIMITATIONS: other limitations (cognitive delays) GENERAL APPEARANCE: cooperative ORIENTATION/CONSCIOUSNESS: Yes awake, Yes oriented to person, Yes oriented to place and Yes oriented to time HENMT: COMMON NORMALS: normocephalic and atraumatic HEAD & SCALP: normocephalic and atraumatic Neck/C-Spine: COMMON NORMALS: full ROM GENERAL: Yes normal visual inspection Resp: COMMON NORMALS: normal respiratory effort and clear to auscultation bilaterally AUSCULTATION: clear to auscultation bilaterally Cardio: COMMON NORMALS: regular rate and regular rhythm RATE: regular rate RHYTHM: regular rhythm GI: COMMON NORMALS: Normal to inspection, nondistended, normoactive bowel sounds present, Soft to palpation, non-tender, No hepatosplenomegaly present and no masses PALPATION: Yes Soft to palpation and Yes No hepatosplenomegaly present Neuro: COMMON NORMALS: patient oriented x3 SENSORIUM/ORIENTATION: Yes alert, Yes oriented to person, Yes oriented to place and Yes oriented to time Course Consultations: Consultation #1: Dr. Sharma-reviewed patient's XRs; states he cannot differentiate whether tack was in her colon or stomach; he states he did not believe she would benefit from endoscopy; he will see patient in his office tomorrow afternoon; request she receive repeat KUB prior to this appointment Consultation #2: Dr. Kendall-very aware of patient; states she does not need to be admitted at this time and is safe for discharge Vital Signs: Vital signs: Vital Signs Temperature 97.4 F L 04/29/20 14:53 Pulse Rate 95 04/29/20 14:53 Respiratory Rate 18 04/29/20 18:26 Blood Pressure 126/81 04/29/20 14:53 Pulse Oximetry 95 04/29/20 14:53 MDM - Skin/Abscess/Foreign Bdy MDM Narrative: Medical decision making narrative: I was later told Dr. Kendall needed to evaluate patient in person or with telepsych. I have spoken to him and he will do telepsych visit. Imaging Data^: XR KUB: Radiologist's impression: [address] [place] [address] XRay Report Signed Patient: Shelby Cherry Unit #: [id number] : 1985 Age/Sex: 35 / F ADM Date: 04/29/20 Loc: ER Room/Bed: Attending Dr: Ordering Provider/Ordering MD: Toma Minor Date of Service: 04/29/20 Procedure(s): XR KUB 81166 Accession Number(s): [id number] Report Number: [id number] WS: [id number] KUB, AP view, 04/29/2020 Clinical Data: fb ingestion Comparison: KUB, 04/22/2020. Findings: There is a radiopaque metal object which is possibly in the distal transverse colon or stomach. This may represent a different foreign body and not the tack that was noted one week ago.. No other foreign bodies are seen. The bowel gas pattern shows no evidence of obstruction XR/XR KUB 73677 Impression: 1. Small metal radiopaque foreign body perhaps in the distal transverse colon or the stomach. 2. Moderate generalized ileus. Dictated By: Delores Beauchamp MD Signed By: Delores Beauchamp MD Signed Date/Time: 04/29/20 1605 DD/ 1600 XR soft tissue: Radiologist's impression: [address] [address] XRay Report Signed Patient: Shelby Cherry Unit #: [id number] : [id number] Age/Sex: 35 / F ADM Date: 04/29/20 Loc: ER Room/Bed: Attending Dr: Ordering Provider/Ordering MD: Toma Minor Date of Service: 04/29/20 Procedure(s): XR soft tissue neck 62392 Accession Number(s): [id number] Report Number: [id number] WS: [id number] Soft tissue view of the neck, AP and lateral, 04/29/2020 Clinical Data: fb ingestion Comparison: None. Findings: No radiopaque foreign body can be seen in the pharynx, hypopharynx or trachea. On the AP view no foreign bodies can be seen over the superior lungs or the trachea. The cervical spine is normal. XR/XR soft tissue neck 84172 Impression: Negative for radiopaque foreign body. Dictated By: Delores Beauchamp MD Signed By: Delores Beauchamp MD Signed Date/Time: 04/29/20 161 DD/ 160 Discharge Plan Discharge Patient Disposition: Home Clinical Impression: Ingestion of foreign body Qualifiers: Encounter type: initial encounter Qualified Code(s): T18.9XXA - Foreign body of alimentary tract, part unspecified, initial encounter Condition: Stable Prescriptions: No Action hydroxyzine HCl 50 mg tablet 50 mg PO Q8H MDD 3 tabs PRN (Reason: anxiety/agitation) Qty: 90 RF: 0 trazodone 50 mg tablet 50 mg PO BEDTIME PRN (Reason: Sleep) 30 Days Qty: 30 RF: 1 polyethylene glycol 3350 [Miralax] 17 gram/dose powder 17 gm PO DAILY PRN (Reason: constipation) Qty: 238 RF: 2 acetaminophen 325 mg capsule 650 mg PO Q6H PRN (Reason: fever of 100.4 or greater and/or pain) Qty: 120 RF: 2 dextromethorphan-guaifenesin [Safe Tussin DM] 10-100 mg/5 mL liquid 10 ml PO Q6H PRN (Reason: cough) Qty: 500 RF: 0 Simpesse 0.15 mg-30 mcg (84)/10 mcg (7) tablets,dose pack,3 month 1 tab PO DAILY@08 RF: 0 Abilify 15 mg tablet 15 mg PO BEDTIME@1999 RF: 0 venlafaxine 37.5 mg capsule,extended release 24hr 37.5 mg PO DAILY@08 RF: 0 clonazepam 0.5 mg tablet 0.5 mg PO TID@08,12,20 RF: 0 topiramate 100 mg tablet 100 mg PO BEDTIME@20 RF: 0 levothyroxine 112 mcg tablet 112 mcg PO DAILY@08 RF: 0 divalproex [Depakote ER] 250 mg tablet extended release 24 hr 500 mg PO BEDTIME@20 RF: 0 Discharge Orders: Discharge ED (Routine); Ordered 04/29/20 Ordered By: Toma Minor Referrals: Dwayne Sharma MD [Physician] - 04/30/20 11:00 am Ольга Quarles FNP [Primary Care Provider] - Activity Restrictions/Additional Instructions: You have an appointment to see general surgery tomorrow at 11:00. I have written you for an outpatient order for a repeat x-ray that you need to have performed BEFORE this appointment. Return to the emergency department immediately for any coughing up blood, vomiting blood, severe abdominal pain, or any other concerns you may have. 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 She is currently living in a residential and is under guardianship. She enjoys playing games and eating hamburgers. She is despondent that there is no place in [place] where she can get a hamburger and does not know how to make one on her own. Course Consultations: Consultation #1: Dr Kendall, 1721, patient okay to go home, Dr. Kendall completed [id number] visit via telemedicine/interview with the patient as she complained to staff she felt suicidal. Patient's harness placer obligated to have patient seen by psychiatry as she continues to declare she suicidal. Per Dr. Kendall after [id number] interview, patient may go home. No change to medication at this time. Time: 17:27 Vital Signs: Vital signs: Vital Signs Temperature 97.4 F L 04/29/20 14:53 Pulse Rate 95 04/29/20 14:53 Respiratory Rate 18 04/29/20 18:26 Blood Pressure 126/81 04/29/20 14:53 Pulse Oximetry 95 04/29/20 14:53 Discharge Plan Discharge Patient Disposition: Home Clinical Impression: Ingestion of foreign body Qualifiers: Encounter type: initial encounter Qualified Code(s): T18.9XXA - Foreign body of alimentary tract, part unspecified, initial encounter Condition: Stable Prescriptions: No Action hydroxyzine HCl 50 mg tablet 50 mg PO Q8H MDD 3 tabs PRN (Reason: anxiety/agitation) Qty: 90 RF: 0 trazodone 50 mg tablet 50 mg PO BEDTIME PRN (Reason: Sleep) 30 Days Qty: 30 RF: 1 polyethylene glycol 3350 [Miralax] 17 gram/dose powder 17 gm PO DAILY PRN (Reason: constipation) Qty: 238 RF: 2 acetaminophen 325 mg capsule 650 mg PO Q6H PRN (Reason: fever of 100.4 or greater and/or pain) Qty: 120 RF: 2 dextromethorphan-guaifenesin [Safe Tussin DM] 10-100 mg/5 mL liquid 10 ml PO Q6H PRN (Reason: cough) Qty: 500 RF: 0 Simpesse 0.15 mg-30 mcg (84)/10 mcg (7) tablets,dose pack,3 month 1 tab PO DAILY@08 RF: 0 Abilify 15 mg tablet 15 mg PO BEDTIME@1999 RF: 0 venlafaxine 37.5 mg capsule,extended release 24hr 37.5 mg PO DAILY@08 RF: 0 clonazepam 0.5 mg tablet 0.5 mg PO TID@08,12,20 RF: 0 topiramate 100 mg tablet 100 mg PO BEDTIME@20 RF: 0 levothyroxine 112 mcg tablet 112 mcg PO DAILY@08 RF: 0 divalproex [Depakote ER] 250 mg tablet extended release 24 hr 500 mg PO BEDTIME@20 RF: 0 Discharge Orders: Discharge ED (Routine); Ordered 04/29/20 Ordered By: Toma Minor Referrals: Dwayne Sharma MD [Physician] - 04/30/20 11:00 am Ольга Quarles FNP [Primary Care Provider] - Activity Restrictions/Additional Instructions: You have an appointment to see general surgery tomorrow at 11:00. I have written you for an outpatient order for a repeat x-ray that you need to have performed BEFORE this appointment. Return to the emergency department immediately for any coughing up blood, vomiting blood, severe abdominal pain, or any other concerns you may have. Coding Level of Care Code ED Income Tax Preparer for Lasha Turnre Exam Detailed
--- NOTE | 2020-04-29 16:04 | PM.PSYCN ---
Providers/Reason for Consult Consulting Physican/Specialty*: Rome Kendall MD. Psychiatry. Reason for Consult*: Evaluation for safety for discharge. Requesting Physcian: Toma Minor. Primary Care Provider: JACKIE Beverly Psych Consult HPI History of Present Illness Shelby Cherry is a 35 year old female presented to the emergency department with the following report: Chief complaint: Airway/Esophagus Foreign Body Stated complaint: swallowed a thumbtack Time Seen by Provider: 04/29/20 15:24 Source: patient and other (caregiver/staff) Mode of arrival: ambulatory Limitations: no limitations History of Present Illness: HPI narrative: Patient is a 35-year-old female who resides in an ISL at [facility] in [place], [place] here with her caregiver for evaluation after she states she swallowed a thumb tack. Patient has multiple ED visits for swallowing foreign bodies. She states she did this in a suicide attempt but caregiver states she often is just attention seeking. complaint: foreign body Onset (ago): hour(s) (approx 3 hours ago) Context: other (swallowing fb) Associated symptoms: Deny fever(s), nausea or vomiting Treatments prior to arrival: none. A psychiatric consult was requested to verify whether safe for discharge. Of note Shelby is known quite well to this investigative writer from numerous consults and inpatient stays all surrounding this ingestion of tiny objects and reports of hearing voices and suicidality. After multiple inpatient hospitalizations we have come to understand that Shelby says this however with consultation with her staff there were no behavior changes that show a difference between time she is endorsing these issues and swallowing things when she is not. She was just seen days ago evaluated and discharged and her presentation today is no different. She endorses feeling suicidal, hearing voices and needing her medications changed. When she goes to her outpatient provider she does not ask about medication changes and is not using the outpatient process to take care of her situation. There was nothing new or symptomatic about her presentation there were no signs of internal preoccupation or signs that would indicate that this presentation is any different than any of the voluminous previous ones. We discussed various coping studies and the importance of her identifying activities and options to fill the void and boredom that she has being stuck in her situation with limited social outlets and limited interactions with diverse or different individuals. 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 She is currently living in a [facility] and is under guardianship. She enjoys playing games and eating hamburgers. She is despondent that there is no place in [place] where she can get a hamburger and does not know how to make one on her own. Mental Status Exam MSE Comments: This is a well-nourished, well-developed, white female, with adequate dress, grooming, and limited eye contact. No abnormal movements except for psychomotor retardation. Cooperative with exam in mild distress. Speech was decreased rate and volume. Mood described as ?I hear voices, I need an inpatient hospitalization?; affect slightly subdued. Thought process, linear. Thought content: patient endorsed suicidal but denied homicidal ideation, there were no delusions reported or noted, patient endorsed auditory but denied visual hallucinations. Attention, concentration appear intact and memory appeared unreliable but none were formally tested. Alert and oriented times three. Insight and judgment are impaired. Intellectual ability is impaired. Vitals/I&O/Wt Last Vital Signs Temp 97.4 F L 04/29/20 14:53 Pulse 95 04/29/20 14:53 Resp 14 04/29/20 14:53 BP 126/81 04/29/20 14:53 Pulse Ox 95 04/29/20 14:53 Weight last 48 hrs Weight 92.442 kg A&P Additional A&P Information (1) Suicidal ideation: (2) Borderline personality disorder: (3) Major depressive disorder, recurrent severe without psychotic features: (4) Mild intellectual disabilities: (5) Post-traumatic stress disorder, chronic: This is a 35-year-old white female with a long history of PTSD, borderline personality disorder and poor impulse control with intellectual disability mild versus moderate who presents as she normally does endorsing suicidal thoughts and reporting that she is hearing voices without any affective of change to accompany her report. 1. Continue current medication. 2. Agree with not admitting.She is absent credible lethality, has borderline personality and would not benefit from inpatient treatment. 3. Refer to outpatient providers with whom she is current, for any medication changes. Involuntary Hold Information 96 Hour Hold: 96 Hour Involuntary Admission: No 96 Hour Hold Ending Date: 08/19/19 96 Hour Hold Ending Time: 07:00 Attestations NPU Medical Necessity Statement*: N/A. See primary provider for medical necessity, but agree admission not indicated. Coding Level of Care Code Acute Production Estimator for Lasha Turner
--- NOTE | 2020-04-29 16:23 | DCPLANNER ---
deli department manager was asked to schedule a followup appointment for patient with general surgery. ER physician stated that she spoke with Dr. Lizama and he would like to see patient in the office on 04.30.20. deli department manager called general surgery, spoke with Donna, a follow up appointment was scheduled for April at 11:[address] Harrington. deli department manager informed physician of the scheduled appointment.
[2020-04-29] MEDS: LORazepam 2 mg/mL INJ 1 mL IM (18:20)
[2020-04-29 18:26] VITALS: RESP 18
--- NOTE | 2020-05-13 15:20 | DCPLANNER ---
Patient had a follow up appointment scheduled for 04.30.[address] Sharma with general surgery - patient did attend appointment.
== END 2020-04-29 18:28 | disposition home or self-care (01) ==
PROVIDERS: Emergency Provider Physician Assistant; PCP Nurse Practitioner Family
DX: T18.9XXA Foreign body of alimentary tract, part unspecified, initial encounter (principal); X58.XXXA Exposure to other specified factors, initial encounter
CPT/HCPCS: 70360; 74018; 96372; 99283; J2060

== ENCOUNTER 2020-04-30 09:57 | Outpatient (CLI) | payer MEDICAID, SELFPAY ==
--- NOTE | 2020-04-30 10:09 | XR_ITS ---
WS: [id number] KUB, AP view, 04/30/2020 Clinical Data: FB INGESTION Comparison: KUB, 04/29/2020 Findings: The radiopaque foreign body, a tack, is probably within the proximal descending colon. XR/XR KUB [id number] Impression: Radiopaque foreign body probably within the descending colon.
== END 2020-04-30 09:58 | disposition home or self-care (01) ==
PROVIDERS: PCP Nurse Practitioner Family; Visit Provider Physician Assistant
DX: T18.9XXA Foreign body of alimentary tract, part unspecified, initial encounter (principal); X58.XXXA Exposure to other specified factors, initial encounter
CPT/HCPCS: 74018

== ENCOUNTER 2020-04-30 23:12 | Emergency (ER) | payer MEDICAID, SELFPAY ==
[2020-04-30 23:34] VITALS: BP 133/76; PULSE 100; RESP 16; TEMP 36.7; O2SAT 100; BMI 32.5
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
[2020-04-30] MEDS: neomycin-poly-bacitracin oint 0.9 gm Pkt 1 APPLIC TOPICAL (23:40)
[2020-04-30] MEDS: HYDROcodone-acetaminophen 5-325 mg Tablet 1 TAB PO (23:40)
[2020-04-30 23:46] VITALS: PULSE 99; RESP 18; O2SAT 97
[2020-04-30 23:47] VITALS: BP 131/60; PULSE 97; RESP 17; O2SAT 96
== END 2020-04-30 23:52 | disposition home or self-care (01) ==
PROVIDERS: Emergency Provider Emergency Medicine; PCP Nurse Practitioner Family
DX: T21.12XA Burn of first degree of abdominal wall, initial encounter (principal); X10.0XXA Contact with hot drinks, initial encounter
CPT/HCPCS: 99283

== ENCOUNTER 2020-05-02 19:17 | Emergency (ER) | payer MEDICAID, SELFPAY ==
[2020-05-02 19:51] VITALS: BP 125/75; PULSE 118; RESP 18; TEMP 36.8; O2SAT 97; BMI 32.5
--- NOTE | 2020-05-02 21:41 | XRR_ITS ---
PROCEDURE INFORMATION: Exam: XR Abdomen Exam date and time: 05/02/2020 10:14 PM Age: 35 years old Clinical indication: Other: F/u foreign body; Additional info: Foreign body ingestion TECHNIQUE: Imaging protocol: XR of the abdomen. Views: 2 Views. Upright and supine views. COMPARISON: CR XR KUB portable [id number] 04/21/2020 4:48 PM FINDINGS: Lungs: Mild atelectasis at the lung bases. No infiltrates. Gastrointestinal tract: No acute bowel abnormality identified. No radiopaque foreign body demonstrated. Intraperitoneal space: No pneumoperitoneum demonstrated. Bones/joints: Unremarkable for age. Soft tissues: Unremarkable. XR/XR acute abdomen series [id number] IMPRESSION: No radiopaque foreign body demonstrated. Foreign body seen on 04/21/2020 is no longer identified.
--- NOTE | 2020-05-02 21:44 | W.ED.ABDPA2 ---
Documented by User: JACKIE Topete 05/03/20 03:09 HPI - Abdominal Pain General: Chief Complaint: Abdominal Pain Stated Complaint: stomach pain Time Seen by Provider: 05/02/20 21:39 Source: patient Mode of arrival: ambulatory Limitations: no limitations History of Present Illness: HPI narrative: Patient's caregiver brought patient in for concerns of increased abdominal discomfort. Patient had swallowed attack about a week ago and has been being followed with multiple imaging to ensure that the clearance of the foreign body. Today patient has some increased abdominal pain and the caregiver brought patient in due to these concerns. MD elicited complaint: abdominal pain Related Data: Date of Last Menstrual Period: 05/02/20 Review of Systems General: Reports: 10 or more systems reviewed and unremarkable except in HPI and below GI: Reports: abdominal pain PFSH ED PFSH: Medical History Constipation H/O swallowed foreign body Hypothyroidism Major depressive disorder, 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 Post-traumatic stress disorder, chronic Social History Smoking and tobacco status: never smoked Second hand smoke exposure: No Alcohol intake: never Caregiver/support person: Yes Lives independently: No Household members: other Details: LIVES IN A RESIDENTIAL Housing: Assisted Living Facility Marital status: Single Current occupational status: disabled History of recent travel: No Current gender identity: Female Additional social history: Patient states that she grew up in [place]. She is currently living in a long term and is under guardianship. She enjoys playing games and eating hamburgers. She is despondent that there is no place in [place] where she can get a hamburger and does not know how to make one on her own. Female Reproductive History: Date of last menstrual period: 05/02/20 Physical Exam Const: COMMON NORMALS: no acute distress and patient oriented x3 GENERAL APPEARANCE: cooperative HENMT: COMMON NORMALS: normocephalic and Normal external nose present HEAD & SCALP: normal to inspection and normocephalic NOSE: Normal external nose present MOUTH: Normal oral and palatal mucosa present Eye: GENERAL EYE: appearance normal, both eyes and all related structures Neck/C-Spine: COMMON NORMALS: full ROM Chest: COMMONS NORMALS: normal inspection of the chest Resp: COMMON NORMALS: normal respiratory effort EFFORT & INSPECTION: Yes able to speak in complete sentences Cardio: COMMON NORMALS: regular rate and regular rhythm RATE: regular rate RHYTHM: regular rhythm GI: COMMON NORMALS: Soft to palpation and non-tender PALPATION: Yes Soft to palpation Back/Pelvis: COMMON NORMALS: thoracic and lumbar spine normal to inspection Extremity: COMMON NORMALS: normal to inspection Neuro: COMMON NORMALS: patient oriented x3 and moves all extremities Psych: COMMON NORMALS: mental status grossly normal and cooperative Skin: COMMON NORMALS: no rashes or lesions noted GENERAL SKIN EXAM: no rashes or lesions noted Course ED course: 1130, patient reports that she is suicidal. Patient does not want to go back to her residence at her residential facility. Patient reports she is fighting with her roommate and she wants to kill herself because of this fight with her roommate. Patient states that she wants to cut her wrist. Patient also reports that she has swallowed the thumbtacks in order to harm herself so that she would not have to go back to the room with her roommate. I discussed this with patient and she states that she understands what she is saying and that she wants to be admitted to the hospital to get help for her suicidal thoughts. 3:08 AM, reviewed patient with Dr. Burns who will continue care on my end of shift. We are awaiting further assessment for disposition to psychiatric facility for intellectual disability clients, or other placement. Vital Signs: Vital signs: Vital Signs Temperature 98.3 F 05/02/20 19:51 Pulse Rate 89 05/03/20 05:40 Respiratory Rate 17 05/03/20 05:40 Blood Pressure 124/76 05/03/20 05:40 Pulse Oximetry 99 05/03/20 05:40 MDM - Abdominal Pain MDM Narrative: Medical decision making narrative: Patient was brought in today for concerns of some abdominal pain due to foreign body ingestion. During patient stay we were able to clear the patient of any foreign body ingestion. Her x-ray showed no foreign body. Patient then stated that she had the abdominal pain and we started work-up for urinary tract infection and other abdominal processes. During that time patient changed her story and now states that she is suicidal and that she is trying to get out of going back to her residential care facility to avoid contact with her roommate. Patient states that she wants to cut her wrist and commit suicide in order to avoid this interaction with her roommate. Patient is alert and oriented. Patient appears well. Abdomen was soft and nontender. Vital signs were stable. Differential diagnosis includes but not limited to anxiety, depression, malingering, suicidal ideation, and intellectual disability. Lab Data: Labs: Lab Results 05/02/20 05/02/20 05/02/20 Range/Units 23:15 23:15 23:15 WBC 14.6 H (4.0-10.0) 10^3/ uL RBC 4.14 (4.1-5.3) 10^6/u L Hgb 12.9 (11.5-15.3) g/dL Hct 40.3 (37.0-47.0) % MCV 97.3 (81-99) fL MCH 31.2 (28.0-34.0) pg MCHC 32.0 (30.0-36.0) g/dL RDW 14.2 (12.1-15.1) % Plt Count 347 (130-400) 10^3/c mm MPV 10.1 (7.4-10.4) fL Neut % (Auto) 50.1 % Lymph % (Auto) 39.8 % Blount % (Auto) 8.1 % Eos % (Auto) 1.0 % Baso % (Auto) 0.5 % Neut # (Auto) 7.33 (1.8-7.7) 10^3/u L Lymph # (Auto) 5.8 H (0.8-4.8) 10^3/u L Blount # (Auto) 1.2 H (0.2-0.9) 10^3/u L Eos # (Auto) 0.1 (0.0-0.8) 10^3/u L Baso # (Auto) 0.1 (0.0-0.1) 10^3/u L Nucleated RBC % (a uto) 0 % Nucleated RBCs # 0.0 /100WBC Sodium 137 (136-145) mmol/L Potassium 3.7 (3.5-5.1) mmol/L Chloride 103 (98-107) mmol/L Carbon Dioxide 27 (22-29) mmol/L Anion Gap 10.7 (5-19) BUN 19 (6-20) mg/dL Creatinine 0.8 (0.5-0.9) mg/dL GFR Calculation 80.7 L (90-130) mL/min Glucose 93 (65-115) mg/dL Calculated Osmolal ity 286 (285-295) mOsm/k g Calcium 8.9 (8.5-10.5) mg/dL Total Bilirubin 0.2 (0.15-1.2) mg/dL AST 13 (0-32) U/L ALT 11 (0-33) U/L Alkaline Phosphata se 40 (35-105) IU/L Total Protein 6.6 (6.6-8.7) g/dL Albumin 3.3 L (3.5-5.2) g/dL Globulin 3.3 (1.3-4.6) g/dL Lipase 32 (13-60) U/L TSH (0.27-4.20) uIU/ mL Urine Color (Yellow) Urine Appearance (CLEAR) Urine pH (5-7) Ur Specific Gravit y (1.005-1.030) Urine Protein (Negative) Urine Glucose (UA) (Normal) Urine Ketones (Negative) Urine Blood (Negative) Urine Nitrate (Negative) Urine Bilirubin (Negative) Urine Urobilinogen (Negative) mg/dL Ur Leukocyte Shala ase (Negative) Urine RBC (0-2) /hpf Urine WBC (0-5) /hpf Ur Squamous Epith Cells (0-5) /hpf Amorphous Sediment Urine Bacteria (NONE) /hpf Salicylates < 0.3 L (3-10) mg/dL Urine Opiates Scre en (Negative) ng/mL Acetaminophen < 5.0 L (10-30) ug/mL Ur Barbiturates Sc reen (Negative) ng/mL Valproic Acid (50-100) ug/mL Ur Phencyclidine S crn (Negative) ng/mL Ur Amphetamines Sc reen (Negative) ng/mL U Benzodiazepines Scrn (Negative) ng/mL Urine Cocaine Scre en (Negative) ng/mL U Marijuana (THC) Screen (Negative) ng/mL Ethyl Alcohol < 10 (0-10) mg/dL 05/02/20 05/02/20 05/03/20 Range/Units 23:50 23:50 06:19 WBC (4.0-10.0) 10^3/ uL RBC (4.1-5.3) 10^6/u L Hgb (11.5-15.3) g/dL Hct (37.0-47.0) % MCV (81-99) fL MCH (28.0-34.0) pg MCHC (30.0-36.0) g/dL RDW (12.1-15.1) % Plt Count (130-400) 10^3/c mm MPV (7.4-10.4) fL Neut % (Auto) % Lymph % (Auto) % Blount % (Auto) % Eos % (Auto) % Baso % (Auto) % Neut # (Auto) (1.8-7.7) 10^3/u L Lymph # (Auto) (0.8-4.8) 10^3/u L Blount # (Auto) (0.2-0.9) 10^3/u L Eos # (Auto) (0.0-0.8) 10^3/u L Baso # (Auto) (0.0-0.1) 10^3/u L Nucleated RBC % (a uto) % Nucleated RBCs # /100WBC Sodium (136-145) mmol/L Potassium (3.5-5.1) mmol/L Chloride (98-107) mmol/L Carbon Dioxide (22-29) mmol/L Anion Gap (5-19) BUN (6-20) mg/dL Creatinine (0.5-0.9) mg/dL GFR Calculation (90-130) mL/min Glucose (65-115) mg/dL Calculated Osmolal ity (285-295) mOsm/k g Calcium (8.5-10.5) mg/dL Total Bilirubin (0.15-1.2) mg/dL AST (0-32) U/L ALT (0-33) U/L Alkaline Phosphata se (35-105) IU/L Total Protein (6.6-8.7) g/dL Albumin (3.5-5.2) g/dL Globulin (1.3-4.6) g/dL Lipase (13-60) U/L TSH (0.27-4.20) uIU/ mL Urine Color Yellow (Yellow) Urine Appearance Clear (CLEAR) Urine pH 6.5 (5-7) Ur Specific Gravit y 1.015 (1.005-1.030) Urine Protein Neg (Negative) Urine Glucose (UA) Norm (Normal) Urine Ketones Negative (Negative) Urine Blood 3+ H (Negative) Urine Nitrate Negative (Negative) Urine Bilirubin Neg (Negative) Urine Urobilinogen Norm (Negative) mg/dL Ur Leukocyte Shala ase 1+ H (Negative) Urine RBC 25-40 H (0-2) /hpf Urine WBC 10-15 H (0-5) /hpf Ur Squamous Epith Cells 15-25 H (0-5) /hpf Amorphous Sediment Not Reportable Urine Bacteria 2+ H (NONE) /hpf Salicylates (3-10) mg/dL Urine Opiates Scre en Negative (Negative) ng/mL Acetaminophen (10-30) ug/mL Ur Barbiturates Sc reen Negative (Negative) ng/mL Valproic Acid 34.8 L (50-100) ug/mL Ur Phencyclidine S crn Negative (Negative) ng/mL Ur Amphetamines Sc reen Negative (Negative) ng/mL U Benzodiazepines Scrn Negative (Negative) ng/mL Urine Cocaine Scre en Negative (Negative) ng/mL U Marijuana (THC) Screen Negative (Negative) ng/mL Ethyl Alcohol (0-10) mg/dL 05/03/ Range/Units 06:19 WBC (4.0-10.0) 10^3/ uL RBC (4.1-5.3) 10^6/u L Hgb (11.5-15.3) g/dL Hct (37.0-47.0) % MCV (81-99) fL MCH (28.0-34.0) pg MCHC (30.0-36.0) g/dL RDW (12.1-15.1) % Plt Count (130-400) 10^3/c mm MPV (7.4-10.4) fL Neut % (Auto) % Lymph % (Auto) % Blount % (Auto) % Eos % (Auto) % Baso % (Auto) % Neut # (Auto) (1.8-7.7) 10^3/u L Lymph # (Auto) (0.8-4.8) 10^3/u L Blount # (Auto) (0.2-0.9) 10^3/u L Eos # (Auto) (0.0-0.8) 10^3/u L Baso # (Auto) (0.0-0.1) 10^3/u L Nucleated RBC % (a uto) % Nucleated RBCs # /100WBC Sodium (136-145) mmol/L Potassium (3.5-5.1) mmol/L Chloride (98-107) mmol/L Carbon Dioxide (22-29) mmol/L Anion Gap (5-19) BUN (6-20) mg/dL Creatinine (0.5-0.9) mg/dL GFR Calculation (90-130) mL/min Glucose (65-115) mg/dL Calculated Osmolal ity (285-295) mOsm/k g Calcium (8.5-10.5) mg/dL Total Bilirubin (0.15-1.2) mg/dL AST (0-32) U/L ALT (0-33) U/L Alkaline Phosphata se (35-105) IU/L Total Protein (6.6-8.7) g/dL Albumin (3.5-5.2) g/dL Globulin (1.3-4.6) g/dL Lipase (13-60) U/L TSH 4.25 H (0.27-4.20) uIU/ mL Urine Color (Yellow) Urine Appearance (CLEAR) Urine pH (5-7) Ur Specific Gravit y (1.005-1.030) Urine Protein (Negative) Urine Glucose (UA) (Normal) Urine Ketones (Negative) Urine Blood (Negative) Urine Nitrate (Negative) Urine Bilirubin (Negative) Urine Urobilinogen (Negative) mg/dL Ur Leukocyte Shala ase (Negative) Urine RBC (0-2) /hpf Urine WBC (0-5) /hpf Ur Squamous Epith Cells (0-5) /hpf Amorphous Sediment Urine Bacteria (NONE) /hpf Salicylates (3-10) mg/dL Urine Opiates Scre en (Negative) ng/mL Acetaminophen (10-30) ug/mL Ur Barbiturates Sc reen (Negative) ng/mL Valproic Acid (50-100) ug/mL Ur Phencyclidine S crn (Negative) ng/mL Ur Amphetamines Sc reen (Negative) ng/mL U Benzodiazepines Scrn (Negative) ng/mL Urine Cocaine Scre en (Negative) ng/mL U Marijuana (THC) Screen (Negative) ng/mL Ethyl Alcohol (0-10) mg/dL Discharge Plan Discharge Patient Disposition: Home Clinical Impression: Borderline personality disorder Depression Qualifiers: Major depression recurrence: recurrent Condition: Stable Prescriptions: No Action hydroxyzine HCl 50 mg tablet 50 mg PO Q8H MDD 3 tabs PRN (Reason: anxiety/agitation) Qty: 90 RF: 0 trazodone 50 mg tablet 50 mg PO BEDTIME PRN (Reason: Sleep) 30 Days Qty: 30 RF: 1 polyethylene glycol 3350 [Miralax] 17 gram/dose powder 17 gm PO DAILY PRN (Reason: constipation) Qty: 238 RF: 2 acetaminophen 325 mg capsule 650 mg PO Q6H PRN (Reason: fever of 100.4 or greater and/or pain) Qty: 120 RF: 2 Simpesse 0.15 mg-30 mcg (84)/10 mcg (7) tablets,dose pack,3 month 1 tab PO DAILY@08 RF: 0 Abilify 15 mg tablet 15 mg PO BEDTIME@1999 RF: 0 venlafaxine 37.5 mg capsule,extended release 24hr 37.5 mg PO DAILY@08 RF: 0 clonazepam 0.5 mg tablet 0.5 mg PO TID@08,12,20 RF: 0 topiramate 100 mg tablet 100 mg PO BEDTIME@20 RF: 0 levothyroxine 112 mcg tablet 112 mcg PO DAILY@08 RF: 0 divalproex [Depakote ER] 250 mg tablet extended release 24 hr 500 mg PO BEDTIME@20 RF: 0 Discharge Orders: Discharge ED (Routine); Ordered 05/03/20 Ordered By: Chele Burns Referrals: Ольга Quarles FNP [Primary Care Provider] - Patient Instructions: Depression (ED), Suicide Prevention for Adults (ED) Coding Level of Care Code ED Senior Water/Wastewater Engineer for Chg Fwd Exam Comprehensive Documented by User: Chele Burns DO 05/03/20 07:18 HPI - Abdominal Pain General: Chief Complaint: Abdominal Pain Stated Complaint: stomach pain Time Seen by Provider: 05/02/20 21:39 [facility] ED PFSH: Medical History Constipation H/O swallowed foreign body Hypothyroidism Major depressive disorder, 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 Post-traumatic stress disorder, chronic Social History Smoking and tobacco status: never smoked Second hand smoke exposure: No Alcohol intake: never Caregiver/support person: Yes Lives independently: No Household members: other Details: LIVES IN A RESIDENTIAL Housing: Assisted Living Facility Marital status: Single Current occupational status: disabled History of recent travel: No Current gender identity: Female Additional social history: Patient states that she grew up in [place]. She is currently living in a long term and is under guardianship. She enjoys playing games and eating hamburgers. She is despondent that there is no place in [place] where she can get a hamburger and does not know how to make one on her own. Course Consultations: Consultation #1: Enoch Time: 07:14 Vital Signs: Vital signs: Vital Signs Temperature 98.3 F 05/02/20 19:51 Pulse Rate 89 05/03/20 05:40 Respiratory Rate 17 05/03/20 05:40 Blood Pressure 124/76 05/03/20 05:40 Pulse Oximetry 99 05/03/20 05:40 MDM - Abdominal Pain MDM Narrative: Medical decision making narrative: 35-year-old female checked out to me by JACKIE Lange. I agree with his history, evaluation, work-up and treatment. This lady has limited intellectual capability. She has been seen multiple times, and is well-known to the ER. On her last visit to the ER, she was seen by psychiatry via video screen. It was determined that her threats of suicide are of low lethality, and that she is safe in her home living environment. Essentially, her prior behaviors have been attributed to attention seeking. She notes that she is hearing voices, and the voices are telling her to harm herself. This is not a new thing for her. I consulted Dr. Kendall from psychiatry, and he maintains that inpatient admission would do little good for this lady, and that he is confident that she would be safe in her home environment. This was explained to the patient, and the staff member in the room. She basically refused to leave, and security has been called. Lab Data: Labs: Lab Results 05/02/20 05/02/20 05/02/20 Range/Units 23:15 23:15 23:15 WBC 14.6 H (4.0-10.0) 10^3/ uL RBC 4.14 (4.1-5.3) 10^6/u L Hgb 12.9 (11.5-15.3) g/dL Hct 40.3 (37.0-47.0) % MCV 97.3 (81-99) fL MCH 31.2 (28.0-34.0) pg MCHC 32.0 (30.0-36.0) g/dL RDW 14.2 (12.1-15.1) % Plt Count 347 (130-400) 10^3/c mm MPV 10.1 (7.4-10.4) fL Neut % (Auto) 50.1 % Lymph % (Auto) 39.8 % Blount % (Auto) 8.1 % Eos % (Auto) 1.0 % Baso % (Auto) 0.5 % Neut # (Auto) 7.33 (1.8-7.7) 10^3/u L Lymph # (Auto) 5.8 H (0.8-4.8) 10^3/u L Blount # (Auto) 1.2 H (0.2-0.9) 10^3/u L Eos # (Auto) 0.1 (0.0-0.8) 10^3/u L Baso # (Auto) 0.1 (0.0-0.1) 10^3/u L Nucleated RBC % (a uto) 0 % Nucleated RBCs # 0.0 /100WBC Sodium 137 (136-145) mmol/L Potassium 3.7 (3.5-5.1) mmol/L Chloride 103 (98-107) mmol/L Carbon Dioxide 27 (22-29) mmol/L Anion Gap 10.7 (5-19) BUN 19 (6-20) mg/dL Creatinine 0.8 (0.5-0.9) mg/dL GFR Calculation 80.7 L (90-130) mL/min Glucose 93 (65-115) mg/dL Calculated Osmolal ity 286 (285-295) mOsm/k g Calcium 8.9 (8.5-10.5) mg/dL Total Bilirubin 0.2 (0.15-1.2) mg/dL AST 13 (0-32) U/L ALT 11 (0-33) U/L Alkaline Phosphata se 40 (35-105) IU/L Total Protein 6.6 (6.6-8.7) g/dL Albumin 3.3 L (3.5-5.2) g/dL Globulin 3.3 (1.3-4.6) g/dL Lipase 32 (13-60) U/L TSH (0.27-4.20) uIU/ mL Urine Color (Yellow) Urine Appearance (CLEAR) Urine pH (5-7) Ur Specific Gravit y (1.005-1.030) Urine Protein (Negative) Urine Glucose (UA) (Normal) Urine Ketones (Negative) Urine Blood (Negative) Urine Nitrate (Negative) Urine Bilirubin (Negative) Urine Urobilinogen (Negative) mg/dL Ur Leukocyte Shala ase (Negative) Urine RBC (0-2) /hpf Urine WBC (0-5) /hpf Ur Squamous Epith Cells (0-5) /hpf Amorphous Sediment Urine Bacteria (NONE) /hpf Salicylates < 0.3 L (3-10) mg/dL Urine Opiates Scre en (Negative) ng/mL Acetaminophen < 5.0 L (10-30) ug/mL Ur Barbiturates Sc reen (Negative) ng/mL Valproic Acid (50-100) ug/mL Ur Phencyclidine S crn (Negative) ng/mL Ur Amphetamines Sc reen (Negative) ng/mL U Benzodiazepines Scrn (Negative) ng/mL Urine Cocaine Scre en (Negative) ng/mL U Marijuana (THC) Screen (Negative) ng/mL Ethyl Alcohol < 10 (0-10) mg/dL 05/02/20 05/02/20 05/03/20 Range/Units 23:50 23:50 06:19 WBC (4.0-10.0) 10^3/ uL RBC (4.1-5.3) 10^6/u L Hgb (11.5-15.3) g/dL Hct (37.0-47.0) % MCV (81-99) fL MCH (28.0-34.0) pg MCHC (30.0-36.0) g/dL RDW (12.1-15.1) % Plt Count (130-400) 10^3/c mm MPV (7.4-10.4) fL Neut % (Auto) % Lymph % (Auto) % Blount % (Auto) % Eos % (Auto) % Baso % (Auto) % Neut # (Auto) (1.8-7.7) 10^3/u L Lymph # (Auto) (0.8-4.8) 10^3/u L Blount # (Auto) (0.2-0.9) 10^3/u L Eos # (Auto) (0.0-0.8) 10^3/u L Baso # (Auto) (0.0-0.1) 10^3/u L Nucleated RBC % (a uto) % Nucleated RBCs # /100WBC Sodium (136-145) mmol/L Potassium (3.5-5.1) mmol/L Chloride (98-107) mmol/L Carbon Dioxide (22-29) mmol/L Anion Gap (5-19) BUN (6-20) mg/dL Creatinine (0.5-0.9) mg/dL GFR Calculation (90-130) mL/min Glucose (65-115) mg/dL Calculated Osmolal ity (285-295) mOsm/k g Calcium (8.5-10.5) mg/dL Total Bilirubin (0.15-1.2) mg/dL AST (0-32) U/L ALT (0-33) U/L Alkaline Phosphata se (35-105) IU/L Total Protein (6.6-8.7) g/dL Albumin (3.5-5.2) g/dL Globulin (1.3-4.6) g/dL Lipase (13-60) U/L TSH (0.27-4.20) uIU/ mL Urine Color Yellow (Yellow) Urine Appearance Clear (CLEAR) Urine pH 6.5 (5-7) Ur Specific Gravit y 1.015 (1.005-1.030) Urine Protein Neg (Negative) Urine Glucose (UA) Norm (Normal) Urine Ketones Negative (Negative) Urine Blood 3+ H (Negative) Urine Nitrate Negative (Negative) Urine Bilirubin Neg (Negative) Urine Urobilinogen Norm (Negative) mg/dL Ur Leukocyte Shala ase 1+ H (Negative) Urine RBC 25-40 H (0-2) /hpf Urine WBC 10-15 H (0-5) /hpf Ur Squamous Epith Cells 15-25 H (0-5) /hpf Amorphous Sediment Not Reportable Urine Bacteria 2+ H (NONE) /hpf Salicylates (3-10) mg/dL Urine Opiates Scre en Negative (Negative) ng/mL Acetaminophen (10-30) ug/mL Ur Barbiturates Sc reen Negative (Negative) ng/mL Valproic Acid 34.8 L (50-100) ug/mL Ur Phencyclidine S crn Negative (Negative) ng/mL Ur Amphetamines Sc reen Negative (Negative) ng/mL U Benzodiazepines Scrn Negative (Negative) ng/mL Urine Cocaine Scre en Negative (Negative) ng/mL U Marijuana (THC) Screen Negative (Negative) ng/mL Ethyl Alcohol (0-10) mg/dL 05/03/20 Range/Units 06:19 WBC (4.0-10.0) 10^3/ uL RBC (4.1-5.3) 10^6/u L Hgb (11.5-15.3) g/dL Hct (37.0-47.0) % MCV (81-99) fL MCH (28.0-34.0) pg MCHC (30.0-36.0) g/dL RDW (12.1-15.1) % Plt Count (130-400) 10^3/c mm MPV (7.4-10.4) fL Neut % (Auto) % Lymph % (Auto) % Blount % (Auto) % Eos % (Auto) % Baso % (Auto) % Neut # (Auto) (1.8-7.7) 10^3/u L Lymph # (Auto) (0.8-4.8) 10^3/u L Blount # (Auto) (0.2-0.9) 10^3/u L Eos # (Auto) (0.0-0.8) 10^3/u L Baso # (Auto) (0.0-0.1) 10^3/u L Nucleated RBC % (a uto) % Nucleated RBCs # /100WBC Sodium (136-145) mmol/L Potassium (3.5-5.1) mmol/L Chloride (98-107) mmol/L Carbon Dioxide (22-29) mmol/L Anion Gap (5-19) BUN (6-20) mg/dL Creatinine (0.5-0.9) mg/dL GFR Calculation (90-130) mL/min Glucose (65-115) mg/dL Calculated Osmolal ity (285-295) mOsm/k g Calcium (8.5-10.5) mg/dL Total Bilirubin (0.15-1.2) mg/dL AST (0-32) U/L ALT (0-33) U/L Alkaline Phosphata se (35-105) IU/L Total Protein (6.6-8.7) g/dL Albumin (3.5-5.2) g/dL Globulin (1.3-4.6) g/dL Lipase (13-60) U/L TSH 4.25 H (0.27-4.20) uIU/ mL Urine Color (Yellow) Urine Appearance (CLEAR) Urine pH (5-7) Ur Specific Gravit y (1.005-1.030) Urine Protein (Negative) Urine Glucose (UA) (Normal) Urine Ketones (Negative) Urine Blood (Negative) Urine Nitrate (Negative) Urine Bilirubin (Negative) Urine Urobilinogen (Negative) mg/dL Ur Leukocyte Shala ase (Negative) Urine RBC (0-2) /hpf Urine WBC (0-5) /hpf Ur Squamous Epith Cells (0-5) /hpf Amorphous Sediment Urine Bacteria (NONE) /hpf Salicylates (3-10) mg/dL Urine Opiates Scre en (Negative) ng/mL Acetaminophen (10-30) ug/mL Ur Barbiturates Sc reen (Negative) ng/mL Valproic Acid (50-100) ug/mL Ur Phencyclidine S crn (Negative) ng/mL Ur Amphetamines Sc reen (Negative) ng/mL U Benzodiazepines Scrn (Negative) ng/mL Urine Cocaine Scre en (Negative) ng/mL U Marijuana (THC) Screen (Negative) ng/mL Ethyl Alcohol (0-10) mg/dL Discharge Plan Discharge Patient Disposition: Home Clinical Impression: Borderline personality disorder Depression Qualifiers: Major depression recurrence: recurrent Condition: Stable Prescriptions: No Action hydroxyzine HCl 50 mg tablet 50 mg PO Q8H MDD 3 tabs PRN (Reason: anxiety/agitation) Qty: 90 RF: 0 trazodone 50 mg tablet 50 mg PO BEDTIME PRN (Reason: Sleep) 30 Days Qty: 30 RF: 1 polyethylene glycol 3350 [Miralax] 17 gram/dose powder 17 gm PO DAILY PRN (Reason: constipation) Qty: 238 RF: 2 acetaminophen 325 mg capsule 650 mg PO Q6H PRN (Reason: fever of 100.4 or greater and/or pain) Qty: 120 RF: 2 Simpesse 0.15 mg-30 mcg (84)/10 mcg (7) tablets,dose pack,3 month 1 tab PO DAILY@08 RF: 0 Abilify 15 mg tablet 15 mg PO BEDTIME@1999 RF: 0 venlafaxine 37.5 mg capsule,extended release 24hr 37.5 mg PO DAILY@08 RF: 0 clonazepam 0.5 mg tablet 0.5 mg PO TID@08,12,20 RF: 0 topiramate 100 mg tablet 100 mg PO BEDTIME@20 RF: 0 levothyroxine 112 mcg tablet 112 mcg PO DAILY@08 RF: 0 divalproex [Depakote ER] 250 mg tablet extended release 24 hr 500 mg PO BEDTIME@20 RF: 0 Discharge Orders: Discharge ED (Routine); Ordered 05/03/20 Ordered By: Chele Burns Referrals: Ольга Quarles FNP [Primary Care Provider] - Patient Instructions: Depression (ED), Suicide Prevention for Adults (ED) Coding Level of Care Code ED Senior Water/Wastewater Engineer for Chg Fwd Exam Comprehensive
[2020-05-02 21:50] VITALS: BP 129/76; PULSE 105; O2SAT 99
[2020-05-02] MEDS: ondansetron 4 MG Tablet PO (22:51)
[2020-05-02 23:27] VITALS: BP 127/80; PULSE 118; O2SAT 96
--- NOTE | 2020-05-02 23:27 | ECG_ITS ---
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 Measurements Intervals [place] Rate: 106 P: 30 GA: 131 QRS: 19 QRSD: 73 T: 30 QT: 310 QTc: 412 Interpretive Statements SINUS TACHYCARDIA LEFT VENTRICULAR HYPERTROPHY AND ST-T CHANGE [VOLTAGE CRITERIA PLUS ST/T ABNORMALITY] Compared to ECG 04/21/2020 22:43:08 ST (T wave) deviation now present Sinus rhythm no longer present Electronically Signed On 05-03-2020 22:39:30 CDT by Claduio Szymanski M.D. [id number]
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
[2020-05-02 23:37] LABS: Basophils # 0.1 10^3/uL (0.0-0.1); Basophils % 0.5 %; Eosinophils # 0.1 10^3/uL (0.0-0.8); Hematocrit 40.3 % (37.0-47.0); Hemoglobin 12.9 g/dL (11.5-15.3); Lymphocytes # 5.8 10^3/uL (0.8-4.8); Lymphocytes % 39.8 %; Mean Corpuscular Hemoglobin 31.2 pg (28.0-34.0); Mean Corpuscular Volume 97.3 fL (81-99); Mean Platelet Volume 10.1 fL (7.4-10.4); Monocytes # 1.2 10^3/uL (0.2-0.9); Monocytes % 8.1 %; Neutrophils # 7.33 10^3/uL (1.8-7.7); Neutrophils % 50.1 %; Nucleated Red Blood Cells % 0 %; Platelet Count 347 10^3/cmm (130-400); Red Blood Count 4.14 10^6/uL (4.1-5.3); Red Cell Distribution Width 14.2 % (12.1-15.1); White Blood Count 14.6 10^3/uL (4.0-10.0)
[2020-05-02 23:49] LABS: Alanine Aminotransferase 11 U/L (0-33); Albumin Level 3.3 g/dL (3.5-5.2); Alkaline Phosphatase 40 IU/L (35-105); Anion Gap 10.7 (5-19); Aspartate Amino Transferase 13 U/L (0-32); Blood Urea Nitrogen 19 mg/dL (6-20); Calcium 8.9 mg/dL (8.5-10.5); Carbon Dioxide 27 mmol/L (22-29); Chloride 103 mmol/L (98-107); Globulin 3.3 g/dL (1.3-4.6); Glomerular Filtration Rate 80.7 mL/min (90-130); Glucose 93 mg/dL (65-115); Lipase 32 U/L (13-60); Osmolality Calculated 286 mOsm/kg (285-295); Potassium 3.7 mmol/L (3.5-5.1); Sodium 137 mmol/L (136-145); Total Bilirubin 0.2 mg/dL (0.15-1.2); Total Protein 6.6 g/dL (6.6-8.7)
[2020-05-02 23:52] LABS: Acetaminophen < 5.0 ug/mL (10-30); Salicylate < 0.3 mg/dL (3-10)
[2020-05-03 00:43] LABS: Add Urine Microscopic? YES; Bilirubin Urine Neg (Negative); Blood Urine 3+ (Negative); Glucose Urine UA Norm (Normal); Ketones Urine Negative (Negative); Leukocyte Esterase Urine 1+ (Negative); Nitrate Urine Negative (Negative); Protein Urine Neg (Negative); Specific Gravity, Urine 1.015 (1.005-1.030); Urine Appearance Clear (CLEAR); Urine Color Yellow (Yellow); Urobilinogen Urine Norm (Negative); pH Urine 6.5 (5-7)
[2020-05-03 00:45] LABS: Add Urine Culture? No; Amphetamines Screen Urine Negative (Negative); Bacteria Urine 2+ /hpf; Barbiturates Screen Urine Negative (Negative); Benzodiazepines Screen Urine Negative (Negative); Cocaine Screen Urine Negative (Negative); Opiate Screen Urine Negative (Negative); PCP Screen Urine Negative (Negative); RBC Urine 25-40 /hpf (0-2); Squamous Epithelial Cell Urine 15-25 /hpf (0-5); THC Screen Urine Negative (Negative)
[2020-05-03 01:23] LABS: Alcohol Level < 10 mg/dL (0-10)
--- NOTE | 2020-05-03 05:17 | PC.NURSE ---
patient not given abilify as she had taken at home
[2020-05-03 05:40] VITALS: BP 124/76; PULSE 89; RESP 17; O2SAT 99
[2020-05-03 06:47] LABS: Valproic Acid Level 34.8 ug/mL (50-100)
[2020-05-03 06:57] LABS: Thyroid Stimulating Hormone 4.25 uIU/mL (0.27-4.20)
[2020-05-03] MEDS: ziprasidone 20 mg/mL SDV IM (07:43)
[2020-05-03 07:44] VITALS: PULSE 95; RESP 16; O2SAT 100
[2020-05-03 07:47] VITALS: PULSE 95; RESP 16; O2SAT 100
== END 2020-05-03 08:06 | disposition home or self-care (01) ==
PROVIDERS: Nurse Practitioner Family; Emergency Provider Emergency Medicine; PCP Nurse Practitioner Family
DX: F60.3 Borderline personality disorder (principal); F33.9 Major depressive disorder, recurrent, unspecified
CPT/HCPCS: 74022; 80053; 80164; 80306; 80307; 81001; 83690; 84443; 85025; 93005; 96372; J3486; Q0162

== ENCOUNTER → 2020-05-13 10:54 | Outpatient (BNVA) | payer MEDICAID, SELFPAY | PROVIDERS: PCP Nurse Practitioner Family; Visit Provider Nurse Practitioner Family | DX: F60.3 Borderline personality disorder (principal) | CPT/HCPCS: 80061; 85025 ==

== ENCOUNTER → 2020-05-22 08:11 | Outpatient (BNVA) | payer MEDICAID, SELFPAY | PROVIDERS: PCP Nurse Practitioner Family; Visit Provider Nurse Practitioner | DX: F43.12 Post-traumatic stress disorder, chronic (principal); F70 Mild intellectual disabilities; F60.3 Borderline personality disorder | CPT/HCPCS: 99214 ==

== ENCOUNTER → 2020-06-04 10:14 | Outpatient (BNVA) | payer MEDICAID, SELFPAY | PROVIDERS: PCP Nurse Practitioner Family; Visit Provider Nurse Practitioner | DX: F43.12 Post-traumatic stress disorder, chronic (principal); F70 Mild intellectual disabilities; F60.3 Borderline personality disorder | CPT/HCPCS: 99214 ==

== ENCOUNTER 2020-06-04 20:33 | Emergency (ER) | payer MEDICAID, SELFPAY ==
[2020-06-04 20:50] VITALS: BP 121/83; PULSE 89; RESP 18; TEMP 36.3; O2SAT 98; BMI 27.4
--- NOTE | 2020-06-04 21:36 | ED_ITS ---
HPI - Nausea/Vomiting/Diarrhea General: Chief complaint: Nausea/Vomiting/Diarrhea Stated complaint: N/V AFTER DINNER, DIZZY, COVID VACC 6 DAYS AGO Time Seen by Provider: 06/04/20 21:01 Source: patient Mode of arrival: ambulatory Limitations: no limitations History of Present Illness: HPI Narrative: 35-year-old female who is well- known to the ED states she has not been feeling well throughout the evening and had an episode of vomiting just prior to arrival. States she has had abdominal cramping along with a nausea. States her pain is currently 2 out of 10. Denies any headache. She denies any sick contacts. She did have a Covid vaccine 6 days ago. Associated nausea: Yes Associated symtoms: Reports nausea; Denies chest pain, dysuria or headache(s) Review of Systems Const: Denies: fever(s), chills, body aches or change in appetite Eyes: Denies: blurry vision or eye discomfort ENMT: Denies: throat pain or dental pain Card: Denies: chest pain Resp: Denies: dyspnea GI: Reports: nausea and vomiting : Denies: dysuria Musc: Denies: neck pain or back pain Skin/Breast: Denies: rash Neuro: Denies: headache(s) Psych: Denies: depression Hayden/Lymph: Denies: easy bruising All/Imm: Denies: urticaria PFSH ED PFSH: Medical History Constipation H/O swallowed foreign body Hypothyroidism Major depressive disorder, 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 Post-traumatic stress disorder, chronic Social History Smoking and tobacco status: never smoked Second hand smoke exposure: No Alcohol intake: never Caregiver/support person: Yes Lives independently: No Household members: other Details: LIVES IN A CORRECTION Housing: Assisted Living Facility Marital status: Single Current occupational status: disabled History of recent travel: No Current gender identity: Female Additional social history: Patient states that she grew up in [place]. She is currently living in a shelter and is under guardianship. She enjoys playing games and eating hamburgers. She is despondent that there is no place in [place] where she can get a hamburger and does not know how to make one on her own. Female Reproductive History: Date of last menstrual period: 05/02/20 Physical Exam Const: COMMON NORMALS: no acute distress, patient oriented x3 and healthy appearing HENMT: COMMON NORMALS: normocephalic and atraumatic HEAD & SCALP: normo cephalic and atraumatic Eye: COMMON NORMALS: Equal, round and reactive pupils present and EOMs intact bilaterally PUPIL: Yes Equal, round and reactive pupils present Neck/C-Spine: COMMON NORMALS: full ROM and supple Chest: COMMONS NORMALS: normal inspection of the chest and normal palpation of entire chest wall Resp: COMMON NORMALS: normal respiratory effort, No retractions, No use of accessory muscles and clear to auscultation bilaterally AUSCULTATION: clear to auscultation bilaterally Cardio: COMMON NORMALS: regular rate, regular rhythm and No murmurs present (Cardio) RATE: regular rate RHYTHM: regular rhythm GI: COMMON NORMALS: Normal to inspection, nondistended, normoactive bowel sounds present, Soft to palpation, non-tender and no masses PALPATION: Yes Soft to palpation Extremity: COMMON NORMALS: normal to inspection and full ROM Neuro: COMMON NORMALS: patient oriented x3, moves all extremities and no focal motor deficits Psych: COMMON NORMALS: mental status grossly normal, Normal thought process present and cooperative THOUGHT PROCESS: Normal thought process present Skin: COMMON NORMALS: no rashes or lesions noted and no wounds GENERAL SKIN EXAM: no rashes or lesions noted Course Vital Signs: Vital signs: Vital Signs Temperature 97.3 F L 06/04/20 20:50 Pulse Rate 89 06/04/20 20:50 Respiratory Rate 18 06/04/20 20:50 Blood Pressure 121/83 06/04/20 20:50 Pulse Oximetry 98 06/04/20 20:50 MDM - Nausea/Vomiting/Diarrhea MDM Narrative: Medical decision making narrative: Patient presents with vomiting with abdominal cramping that is likely viral in origin. Her blood work here is normal and abdominal exam discharge benign with no tenderness. She has no signs of appendicitis and she does not have an acute abdomen. Patient prescribed Zofran for home and is to follow-up with PCP and return if worsening. Patient and caregiver understands and agrees to plan. Lab Data: Labs: Lab Results 04/15/21 04/15/21 04/15/21 Range/Units 22:00 22:00 22:44 WBC Cancelled 14.2 H Corrected WBC Cancelled RBC Cancelled 4.27 Hgb Cancelled 13.1 Hct Cancelled 40.5 MCV Cancelled 94.8 MCH Cancelled 30.7 MCHC Cancelled 32.3 RDW Cancelled 13.7 Plt Count Cancelled 367 MPV Cancelled 10.6 H Gran % Cancelled Neut % (Auto) Cancelled 61.9 Lymph % (Auto) Cancelled 31.8 [place] % (Auto) Cancelled 5.3 Eos % (Auto) Cancelled 0.2 Baso % (Auto) Cancelled 0.4 Neut # (Auto) Cancelled 8.75 H Lymph # (Auto) Cancelled 4.5 [place] # (Auto) Cancelled 0.8 Eos # (Auto) Cancelled 0.0 Baso # (Auto) Cancelled 0.1 Absolute Gran (aut o) Cancelled Nucleated RBC % (a uto) Cancelled 0 Nucleated RBCs # Cancelled 0.0 Sodium 139 (136-145) mmol/L Potassium 4.3 (3.5-5.1) mmol/L Chloride 103 (98-107) mmol/L Carbon Dioxide 26 (22-29) mmol/L Anion Gap 14.3 (5-19) BUN 23 H (6-20) mg/dL Creatinine 0.7 (0.5-0.9) mg/dL GFR Calculation 94.2 (90-130) mL/min Glucose 75 (65-115) mg/dL Calculated Osmolal ity 290 (285-295) mOsm/k g Calcium 8.9 (8.5-10.5) mg/dL Total Bilirubin 0.2 (0.15-1.2) mg/dL AST 15 (0-32) U/L ALT 11 (0-33) U/L Alkaline Phosphata se 44 (35-105) IU/L Total Protein 7.0 (6.6-8.7) g/dL Albumin 3.7 (3.5-5.2) g/dL Globulin 3.3 (1.3-4.6) g/dL Lipase 21 (13-60) U/L Urine Color (Yellow) Urine Appearance (CLEAR) Urine pH (5-7) Ur Specific Gravit y (1.005-1.030) Urine Protein (Negative) Urine Glucose (UA) (Normal) Urine Ketones (Negative) Urine Blood (Negative) Urine Nitrate (Negative) Urine Bilirubin (Negative) Urine Urobilinogen (Negative) mg/dL Ur Leukocyte Shala ase (Negative) Urine RBC (0-2) /hpf Urine WBC (0-5) /hpf Ur Squamous Epith Cells (0-5) /hpf Amorphous Sediment Urine Bacteria (NONE) /hpf 06/04/20 Range/Units 22:57 WBC Corrected WBC RBC Hgb Hct MCV MCH MCHC RDW Plt Count MPV Gran % Neut % (Auto) Lymph % (Auto) [place] % (Auto) Eos % (Auto) Baso % (Auto) Neut # (Auto) Lymph # (Auto) [place] # (Auto) Eos # (Auto) Baso # (Auto) Absolute Gran (aut o) Nucleated RBC % (a uto) Nucleated RBCs # Sodium (136-145) mmol/L Potassium (3.5-5.1) mmol/L Chloride (98-107) mmol/L Carbon Dioxide (22-29) mmol/L Anion Gap (5-19) BUN (6-20) mg/dL Creatinine (0.5-0.9) mg/dL GFR Calculation (90-130) mL/min Glucose (65-115) mg/dL Calculated Osmolal ity (285-295) mOsm/k g Calcium (8.5-10.5) mg/dL Total Bilirubin (0.15-1.2) mg/dL AST (0-32) U/L ALT (0-33) U/L Alkaline Phosphata se (35-105) IU/L Total Protein (6.6-8.7) g/dL Albumin (3.5-5.2) g/dL Globulin (1.3-4.6) g/dL Lipase (13-60) U/L Urine Color Yellow (Yellow) Urine Appearance Clear (CLEAR) Urine pH 6 (5-7) Ur Specific Gravit y 1.015 (1.005-1.030) Urine Protein Neg (Negative) Urine Glucose (UA) Norm (Normal) Urine Ketones Negative (Negative) Urine Blood 3+ H (Negative) Urine Nitrate Negative (Negative) Urine Bilirubin Neg (Negative) Urine Urobilinogen Norm (Negative) mg/dL Ur Leukocyte Shala ase Negative (Negative) Urine RBC 5-10 H (0-2) /hpf Urine WBC 5-10 H (0-5) /hpf Ur Squamous Epith Cells 10-15 H (0-5) /hpf Amorphous Sediment Not Reportable Urine Bacteria 1+ H (NONE) /hpf Discharge Plan Discharge Patient Disposition: Home Clinical Impression: Vomiting Qualifiers: Vomiting type: unspecified Vomiting Intractability: non-intractable Nausea presence: with nausea Qualified Code(s): R11.2 - Nausea with vomiting, unspecified Condition: Stable Prescriptions: New ondansetron 4 mg tablet,disintegrating 4 mg PO Q6H PRN (Reason: nausea and vomiting) Qty: 14 RF: 0 No Action clonazepam 0.5 mg tablet 0.5 mg PO TID@08,12,20 Qty: 90 RF: 1 divalproex [Depakote ER] 500 mg tablet extended release 24 hr 500 mg PO BID Qty: 60 RF: 1 venlafaxine 37.5 mg capsule,extended release 24hr 37.5 mg PO DAILY@08 Qty: 30 RF: 1 topiramate 100 mg tablet 100 mg PO BEDTIME@20 Qty: 30 RF: 1 levothyroxine 125 mcg tablet 125 mcg PO DAILY@08 Qty: 30 RF: 2 quetiapine [Seroquel] 50 mg tablet 50 mg PO .evening Qty: 30 RF: 0 polyethylene glycol 3350 [Miralax] 17 gram/dose powder 17 gm PO DAILY PRN (Reason: constipation) Qty: 238 RF: 2 acetaminophen 325 mg capsule 650 mg PO Q6H PRN (Reason: fever of 100.4 or greater and/or pain) Qty: 120 RF: 2 mupirocin 2 % ointment 1 applic topical BID Qty: 22 RF: 0 Simpesse 0.15 mg-30 mcg (84)/10 mcg (7) tablets,dose pack,3 month 1 tab PO DAILY@08 RF: 0 Discharge Orders: Discharge ED (Routine); Ordered 06/04/20 Ordered By: Omar Alicea Referrals: Ольга Quarles FNP [Primary Care Provider] - Discharge Diet: Advance as tolerated Discharge Activity: Resume usual activity Patient Instructions: Acute Nausea and Vomiting (ED) Coding Level of Care Code ED Exhibits Curator for Chg Fwd Exam Comprehensive
[2020-06-04 22:23] LABS: Alanine Aminotransferase 11 U/L (0-33); Albumin Level 3.7 g/dL (3.5-5.2); Alkaline Phosphatase 44 IU/L (35-105); Aspartate Amino Transferase 15 U/L (0-32); Blood Urea Nitrogen 23 mg/dL (6-20); Calcium 8.9 mg/dL (8.5-10.5); Carbon Dioxide 26 mmol/L (22-29); Chloride 103 mmol/L (98-107); Globulin 3.3 g/dL (1.3-4.6); Glomerular Filtration Rate 94.2 mL/min (90-130); Glucose 75 mg/dL (65-115); Lipase 21 U/L (13-60); Osmolality Calculated 290 mOsm/kg (285-295); Sodium 139 mmol/L (136-145); Total Bilirubin 0.2 mg/dL (0.15-1.2)
[2020-06-04 22:29] LABS: Anion Gap 14.3 (5-19); Potassium 4.3 mmol/L (3.5-5.1)
[2020-06-04] MEDS: ondansetron 2 mg/ML SDV 2 mL 4 MG IVP (22:41)
[2020-06-04] MEDS: sodium chloride 0.9% 1,000 ML 999 ML IV (22:42)
[2020-06-04 22:50] LABS: Basophils # 0.1 10^3/uL (0.0-0.1); Basophils % 0.4 %; Eosinophils % 0.2 %; Hematocrit 40.5 % (37.0-47.0); Hemoglobin 13.1 g/dL (11.5-15.3); Lymphocytes # 4.5 10^3/uL (0.8-4.8); Lymphocytes % 31.8 %; Mean Corpuscular HGB Conc 32.3 g/dL (30.0-36.0); Mean Corpuscular Hemoglobin 30.7 pg (28.0-34.0); Mean Corpuscular Volume 94.8 fL (81-99); Mean Platelet Volume 10.6 fL (7.4-10.4); Monocytes # 0.8 10^3/uL (0.2-0.9); Monocytes % 5.3 %; Neutrophils # 8.75 10^3/uL (1.8-7.7); Neutrophils % 61.9 %; Nucleated Red Blood Cells % 0 %; Platelet Count 367 10^3/cmm (130-400); Red Blood Count 4.27 10^6/uL (4.1-5.3); Red Cell Distribution Width 13.7 % (12.1-15.1); White Blood Count 14.2 10^3/uL (4.0-10.0)
[2020-06-04 23:14] LABS: Add Urine Microscopic? YES; Bilirubin Urine Neg (Negative); Blood Urine 3+ (Negative); Glucose Urine UA Norm (Normal); Ketones Urine Negative (Negative); Leukocyte Esterase Urine Negative (Negative); Nitrate Urine Negative (Negative); Protein Urine Neg (Negative); Specific Gravity, Urine 1.015 (1.005-1.030); Urine Appearance Clear (CLEAR); Urine Color Yellow (Yellow); Urobilinogen Urine Norm (Negative); pH Urine 6 (5-7)
[2020-06-04 23:15] LABS: Bacteria Urine 1+ /hpf
[2020-06-05 00:42] VITALS: BP 120/80; PULSE 87; RESP 19; O2SAT 99
== END 2020-06-05 00:42 | disposition home or self-care (01) ==
PROVIDERS: Emergency Provider Emergency Medicine; PCP Nurse Practitioner Family
DX: R11.2 Nausea with vomiting, unspecified (principal)
CPT/HCPCS: 80053; 81001; 83690; 85025; 96361; 96374; 99283; J2405; J7030

== ENCOUNTER → 2020-06-08 09:43 | Outpatient (BNVA) | payer MEDICAID, SELFPAY | PROVIDERS: PCP Nurse Practitioner Family; Visit Provider Nurse Practitioner | DX: Z79.899 Other long term (current) drug therapy (principal) | CPT/HCPCS: 80164 ==

== ENCOUNTER 2020-06-16 15:24 | Emergency (ER) | payer MEDICAID, SELFPAY ==
[2020-06-16 15:45] VITALS: BP 121/74; PULSE 101; RESP 16; TEMP 36.7; O2SAT 99; BMI 29.0
--- NOTE | 2020-06-16 15:50 | XRR_ITS ---
PROCEDURE INFORMATION: Exam: XR Abdomen Exam date and time: 06/16/2020 3:53 PM Age: 35 years old Clinical indication: Screening exam; Other: Fb ingestion; Patient HX: PT swallowed button TECHNIQUE: Imaging protocol: XR of the abdomen. Views: Frontal supine view of the abdomen. 1 View. Total images: 2 COMPARISON: CR (ABDOMEN, ) 05/02/2020 10:07 PM FINDINGS: Gastrointestinal tract: Nonobstructive bowel pattern. No visible adynamic or reactive ileus. Bones/joints: Unremarkable. Soft tissues: Examination reveals a right lower quadrant oval-shaped radiopaque foreign body measuring a maximum diameter 23 mm most likely corresponding to the ingested button . XR/XR KUB portable [id number] IMPRESSION: Examination reveals a right lower quadrant oval-shaped radiopaque foreign body measuring a maximum diameter 23 mm most likely corresponding to the ingested button .
--- NOTE | 2020-06-16 15:56 | ED_ITS ---
HPI - General Adult General: Chief complaint: Airway/Esophagus Foreign Body Stated complaint: si/swallowed FB Time Seen by Provider: 06/16/20 15:52 Source: patient and other (caregiver) Mode of arrival: ambulatory Limitations: no limitations (although pt does have chronic cognitive delays) History of Present Illness: HPI narrative: Patient is a 35-year-old female who is well-known to our emergency department here yet again for ingestion of foreign body. Staff was alerted that patient swallowed a metal button from her jeans yesterday evening. They were told to come to the emergency department for evaluation. Patient is physically asymptomatic. She told triage she was suicidal (pt always answers yes to these questions). Onset (ago): day(s) (yesterday) Relieving factors: none Exacerbating factors: none Associated symptoms: Reports no associated symptoms; Deny chest pain, dyspnea or vomiting Treatments prior to arrival: none Review of Systems ENMT: Denies: throat pain or odynophagia Card: Denies: chest pain Resp: Denies: dyspnea GI: Denies: abdominal pain, vomiting, hematemesis, hematochezia or melena Musc: Denies: neck pain [facility] ED PFSH: Medical History Constipation H/O swallowed foreign body Hypothyroidism Major depressive disorder, 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 Post-traumatic stress disorder, chronic Social History Smoking and tobacco status: never smoked Second hand smoke exposure: No Alcohol intake: never Caregiver/support person: Yes Lives independently: No Household members: other Details: LIVES IN A SENIOR CARE Housing: Assisted Living Facility Marital status: Single Current occupational status: disabled History of recent travel: No Current gender identity: Female Additional social history: Patient states that she grew up in [place]. She is currently living in a usp and is under guardianship. She enjoys playing games and eating hamburgers. She is despondent that there is no place in [place] where she can get a hamburger and does not know how to make one on her own. Female Reproductive History: Date of last menstrual period: 05/02/20 Physical Exam Const: COMMON NORMALS: no acute distress, patient oriented x3, no limitations (baseline cognitive delays-at baseline as I have cared for pt previously) and alert GENERAL APPEARANCE: cooperative HENMT: COMMON NORMALS: normocephalic and atraumatic HEAD & SCALP: normocephalic and atraumatic Neck/C-Spine: COMMON NORMALS: full ROM GENERAL: Yes normal visual inspection Resp: COMMON NORMALS: normal respiratory effort and clear to auscultation bilaterally AUSCULTATION: clear to auscultation bilaterally Cardio: COMMON NORMALS: regular rate and regular rhythm RATE: regular rate RHYTHM: regular rhythm GI: COMMON NORMALS: Normal to inspection, nondistended, normoactive bowel sounds present, Soft to palpation, non-tender, No hepatosplenomegaly present and no masses PALPATION: Yes Soft to palpation and Yes No hepatosplenomegaly present Neuro: COMMON NORMALS: patient oriented x3 SENSORIUM/ORIENTATION: Yes alert Course Consultations: Consultation #1: Dr. Kendall-will do telepsych consultation on patient Vital Signs: Vital signs: Vital Signs Temperature 98.0 F 06/16/20 15:45 Pulse Rate 101 H 06/16/20 15:45 Respiratory Rate 16 06/16/20 15:45 Blood Pressure 121/74 06/16/20 15:45 Pulse Oximetry 99 06/16/20 15:45 MDM - General Adult MDM Narrative: Medical decision making narrative: States she swallowed button in a suicide attempt. Patient has been seen here countless times for similar stories. These behaviors have been deemed attention seeking by psychiatry but because she voiced suicidal ideations Dr. Kendall will do a telemetry psych visit with the anticipation for discharge. Button is low in her abdomen and she should pass in the next 1-2 days. She can follow up with PCP for this. Imaging Data^: XR KUB: My impression: metal round button in lower abdomen Discharge Plan Discharge Patient Disposition: Home Clinical Impression: Swallowed foreign body Qualifiers: Encounter type: initial encounter Qualified Code(s): T18.9XXA - Foreign body of alimentary tract, part unspecified, initial encounter Condition: Stable Prescriptions: No Action clonazepam 0.5 mg tablet 0.5 mg PO TID@08,12,20 Qty: 90 RF: 1 divalproex [Depakote ER] 500 mg tablet extended release 24 hr 500 mg PO BID Qty: 60 RF: 1 venlafaxine 37.5 mg capsule,extended release 24hr 37.5 mg PO DAILY@08 Qty: 30 RF: 1 topiramate 100 mg tablet 100 mg PO BEDTIME@20 Qty: 30 RF: 1 levothyroxine 125 mcg tablet 125 mcg PO DAILY@08 Qty: 30 RF: 2 polyethylene glycol 3350 [Miralax] 17 gram/dose powder 17 gm PO DAILY PRN (Reason: constipation) Qty: 238 RF: 2 acetaminophen 325 mg capsule 650 mg PO Q6H PRN (Reason: fever of 100.4 or greater and/or pain) Qty: 120 RF: 2 L norgest/e.estradiol-e.estrad [Simpesse] 0.15 mg-30 mcg (84)/10 mcg (7) tablets,dose pack,3 month 1 tab PO DAILY@08 RF: 0 ondansetron 4 mg tablet,disintegrating 4 mg PO Q6H PRN (Reason: nausea and vomiting) Qty: 14 RF: 0 hydroxyzine HCl 50 mg Tablet 50 mg PO TID PRN (Reason: Anxiety) RF: 0 Tussin Cough 100 mg/5 mL Liquid 200 mg PO Q6H PRN (Reason: Cough) RF: 0 quetiapine 50 mg Tablet 50 mg PO BEDTIME RF: 0 Discharge Orders: Discharge ED (Routine); Ordered 06/16/20 Ordered By: Toma Minor Referrals: Ольга Quarles FNP [Primary Care Provider] - Coding Level of Care Code ED Guidance And Control System Engineer for Chg Fwd Exam Detailed
--- NOTE | 2020-06-16 16:15 | P.CONIM_ITS ---
Providers/Reason for Consult Consulting Physican/Specialty*: Rome Kendall MD. Psychiatry. Reason for Consult*: Evaluate for suicidality. Requesting Physcian: Toma Minor Primary Care Provider: JACKIE Beverly Psych Consult HPI History of Present Illness Shelby Cherry is a 35 year old female who presented to the emergency department the following report: Chief complaint: Airway/Esophagus Foreign Body Stated complaint: si/swallowed FB Time Seen by Provider: 06/16/20 15:52 Source: patient and other (caregiver) Mode of arrival: ambulatory Limitations: no limitations (although pt does have chronic cognitive delays) History of Present Illness: HPI narrative: Patient is a 35-year-old female who is well-known to our emergency department here yet again for ingestion of foreign body. Staff was alerted that patient swallowed a metal button from her jeans yesterday evening. They were told to come to the emergency department for evaluation. Patient is physically asymptomatic. She told triage she was suicidal (pt always answers yes to these questions). Onset (ago): day(s) (yesterday) Relieving factors: none Exacerbating factors: none Associated symptoms: Reports no associated symptoms; Deny chest pain, dyspnea or vomiting Treatments prior to arrival: none. A psychiatric consult was requested given her statement of suicidality. 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 Recent visit to the emergency department have been fairly identical consisting of her presenting to the emergency department reporting that she swallowed a tack or nail a piece of metal or some other small object and this time it was a button. Each of these times she reports that these moments were suicide attempts and clearly they are not. She has outpatient services and we have advised her staff that she can call her outpatient team to look at whether or not medication changes indicated. She does not want to do that because she reports that the only way she can feel better is if she is admitted to the unit. She did not present with any new symptoms or change in presentation. There are no behaviors at her home that lead her staff to believe that she would not be able to be managed there or that she poses any additional risk. But they are following the protocol and bring her in here when she reports lethality. There are no substantive changes in her psychosocial circumstances since her last visit. PFSH NPU PFSH: Medical History Constipation H/O swallowed foreign body Hypothyroidism Major depressive disorder, 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 Post-traumatic stress disorder, chronic Social History Smoking and tobacco status: never smoked Second hand smoke exposure: No Alcohol intake: never Caregiver/support person: Yes Lives independently: No Household members: other Details: L[facility]ES IN [facility] Housing: Assisted Living Facility Marital status: Single Current occupational status: disabled History of recent travel: No Current gender identity: Female Additional social history: Patient states that she grew up in [place]. She is currently living in a alf and is under guardianship. She enjoys playing games and eating hamburgers. She is despondent that there is no place in [place] where she can get a hamburger and does not know how to make one on her own. Mental Status Exam MSE Comments: This is a well-nourished, well-developed, white female, with adequate dress, grooming, and limited eye contact. No abnormal movements except for psychomotor retardation. Cooperative with exam in mild distress. Speech was decreased rate and volume. Mood described as I am suicidal and need to be admitted, affect slightly subdued. Thought process, linear. Thought content: patient endorsed suicidal but denied homicidal ideation, there were no delusions reported or noted, patient endorsed auditory but denied visual hallucinations. Attention, concentration appear intact and memory appeared unreliable but none were formally tested. Alert and oriented times three. Insight and judgment are impaired, impulse control is impaired and intellectual ability is impaired. Vitals/I&O/Wt Last Vital Signs Temp 98.0 F 06/16/20 15:45 Pulse 101 H 06/16/20 15:45 Resp 16 06/16/20 15:45 BP 121/74 06/16/20 15:45 Pulse Ox 99 06/16/20 15:45 A&P Additional A&P Information (1) Suicidal ideation: (2) Borderline personality disorder: (3) Major depressive disorder, recurrent severe without psychotic features: (4) Mild intellectual disabilities: (5) Post-traumatic stress disorder, chronic: This is a 35-year-old white female with a long history of PTSD, borderline personality disorder and poor impulse control with intellectual disability mild versus moderate who presents as she normally does endorsing suicidal thoughts and reporting that she is hearing voices without any affective changes to accompany her report. 1. Continue current medication. 2. Agree with not admitting.She is absent credible lethality, has borderline personality and would not benefit from inpatient treatment. 3. Refer to outpatient providers with whom she is current, for any medication changes 4. Given her mental deficiencies/intellectual disability and her often cluster B pathology inpatient hospitalizations are not effective means of changing outcomes in her treatment Involuntary Hold Information 96 Hour Hold: 96 Hour Involuntary Admission: No 96 Hour Hold Ending Date: 08/19/19 96 Hour Hold Ending Time: 07:00 Attestations NPU Medical Necessity Statement*: N/A. See primary provider for medical necessity, but agree admission not indicated. Coding Level of Care Code Acute Airport Control Operator for Lasha Turner
== END 2020-06-16 18:08 | disposition home or self-care (01) ==
PROVIDERS: Emergency Provider Physician Assistant; PCP Nurse Practitioner Family
DX: T18.9XXA Foreign body of alimentary tract, part unspecified, initial encounter (principal); X83.8XXA Intentional self-harm by other specified means, initial encounter
CPT/HCPCS: 74018; 99282

== ENCOUNTER → 2020-06-18 15:37 | Outpatient (BNVA) | payer MEDICAID, SELFPAY | PROVIDERS: PCP Nurse Practitioner Family; Visit Provider Nurse Practitioner Family | DX: T18.9XXA Foreign body of alimentary tract, part unspecified, initial encounter (principal); X58.XXXA Exposure to other specified factors, initial encounter | CPT/HCPCS: 74018 ==

== ENCOUNTER → 2020-06-23 13:39 | Outpatient (BNVA) | payer MEDICAID, SELFPAY | PROVIDERS: PCP Nurse Practitioner Family; Visit Provider Nurse Practitioner Family | DX: T18.9XXA Foreign body of alimentary tract, part unspecified, initial encounter (principal); X58.XXXA Exposure to other specified factors, initial encounter | CPT/HCPCS: 74019 ==

== ENCOUNTER 2020-06-24 13:21 | Inpatient (IN) | payer MEDICAID, SELFPAY ==
[2020-06-24] VITALS (70 sets, daily range): BP systolic 108–130; BP diastolic 63–87; PULSE 84–109; RESP 12–41; TEMP 36.3–37.5; O2SAT 95–100; BMI 34.4
--- NOTE | 2020-06-24 13:38 | XR_ITS ---
WS: [id number] KUB, AP view, 06/24/2020 Clinical Data: fb ingestion re-evaluation Comparison: KUB, 06/23/2020 Findings: Radiopaque foreign body appears to be in the ascending colon. It has not changed in position from yes terday. XR/XR KUB [id number] Impression: Probable foreign body in ascending colon.
--- NOTE | 2020-06-24 13:53 | ECG_ITS ---
[facility] Test Date: 2020-06-24 Pat Name: Shelby Cherry Department: Room: Gender: Female Financial Operations Analyst: : 1985 Requested By: Venu Price Order Number: [id number] Ewing MD: Rony Montoya M.D. Measurements Intervals Harrod Rate: 97 P: 34 NM: 121 QRS: 24 QRSD: 78 T: 30 QT: 308 QTc: 393 Interpretive Statements SINUS RHYTHM Compared to ECG 05/02/2020 23:56:26 Sinus tachycardia no longer present Left ventricular hypertrophy no longer present ST (T wave) deviation no longer present Electronically Signed On 06-25-2020 9:32:04 CDT by Rony Montoya M.D. [id number]
--- NOTE | 2020-06-24 13:53 | XR_ITS ---
WS: [id number] Portable AP upright chest, Clinical Data: swallowed foreign body. Comparison: Portable chest, 04/21/2020. Findings: No nodules, masses or effusions are seen. The heart is normal. The pulmonary vascularity is not increased. No pneumonia or pneumothorax is seen. No radiopaque foreign body is seen overlying th e mediastinum, heart or lungs. XR/XR chest 1V portable [id number] Impression: Negative chest.
[2020-06-24 14:40] LABS: Basophils # 0.1 10^3/uL (0.0-0.1); Basophils % 0.5 %; Eosinophils # 0.1 10^3/uL (0.0-0.8); Eosinophils % 0.5 %; Hematocrit 41.2 % (37.0-47.0); Hemoglobin 13.4 g/dL (11.5-15.3); Lymphocytes # 5.4 10^3/uL (0.8-4.8); Lymphocytes % 41.6 %; Mean Corpuscular HGB Conc 32.5 g/dL (30.0-36.0); Mean Corpuscular Hemoglobin 30.9 pg (28.0-34.0); Mean Corpuscular Volume 94.9 fL (81-99); Mean Platelet Volume 10.1 fL (7.4-10.4); Monocytes # 0.9 10^3/uL (0.2-0.9); Monocytes % 6.6 %; Neutrophils # 6.58 10^3/uL (1.8-7.7); Neutrophils % 50.6 %; Nucleated Red Blood Cells % 0 %; Platelet Count 334 10^3/cmm (130-400); Red Blood Count 4.34 10^6/uL (4.1-5.3)
--- NOTE | 2020-06-24 14:46 | CT_ITS ---
WS: [id number] CT scan of the abdomen and pelvis without Oral and IV contrast. Additional two-dimensional coronal an d sagittal reconstruction was performed. 06/24/2020 Clinical Data: swallowed foreign body/ bloody stool Comparison: None. DLP: 1838.[address] scans at [facility] use at least one of these dose optimization techniques: automat ed exposure control; mA and/or kV adjustment per patient size (includes targeted exams where dose is matched to clinical indication); or iterative reconstruction. Findings: The lower lungs show no nodules, masses or effusions. The liver, gallbladder, spleen, adrenal glands and pancreas are normal. The kidneys show no cysts, masses, calculi or hydronephrosis. The abdominal aorta is normal in size. No appendicitis or diverticulitis is seen. There is a radiopaque foreign body in the ascending colon. The bladder is unremarkable. No inguinal hernia is seen. The uterus is normal. The bones of the lower thorax, lumbar spine, pelvis, and hips are normal. CT/CT abdomen pelvis wo con [id number] Impression: 1. Radiopaque foreign body, probably a button, in the ascending colon. 2. Negative for acute intra-abdominal or pelvic abnormalities.
[2020-06-24 14:51] LABS: Add Urine Microscopic? YES; Bilirubin Urine Neg (Negative); Blood Urine 3+ (Negative); Glucose Urine UA Norm (Normal); Ketones Urine Negative (Negative); Leukocyte Esterase Urine Negative (Negative); Nitrate Urine Negative (Negative); Protein Urine Neg (Negative); Urine Appearance Hazy (CLEAR); Urine Color Yellow (Yellow); Urobilinogen Urine Norm (Negative); pH Urine 5 (5-7)
[2020-06-24 14:52] LABS: HCG Qualitative Urine. Negative (Negative)
[2020-06-24 14:56] LABS: Amphetamines Screen Urine Negative (Negative); Barbiturates Screen Urine Negative (Negative); Benzodiazepines Screen Urine Negative (Negative); Cocaine Screen Urine Negative (Negative); Opiate Screen Urine Negative (Negative); PCP Screen Urine Negative (Negative); THC Screen Urine Negative (Negative)
[2020-06-24 15:07] LABS: Add Urine Culture? No; Bacteria Urine 2+ /hpf; RBC Urine RARE /hpf (0-2); Squamous Epithelial Cell Urine 0-4 /hpf (0-5)
[2020-06-24 15:08] LABS: Alanine Aminotransferase 10 U/L (0-33); Albumin Level 3.7 g/dL (3.5-5.2); Alkaline Phosphatase 41 IU/L (35-105); Anion Gap 10.6 (5-19); Aspartate Amino Transferase 16 U/L (0-32); Blood Urea Nitrogen 18 mg/dL (6-20); Calcium 8.8 mg/dL (8.5-10.5); Carbon Dioxide 26 mmol/L (22-29); Chloride 101 mmol/L (98-107); Globulin 3.3 g/dL (1.3-4.6); Glomerular Filtration Rate 112.5 mL/min (90-130); Glucose 69 mg/dL (65-115); Lipase 25 U/L (13-60); Osmolality Calculated 278 mOsm/kg (285-295); Potassium 3.6 mmol/L (3.5-5.1); Sodium 134 mmol/L (136-145); Thyroid Stimulating Hormone 1.41 uIU/mL (0.27-4.20); Total Bilirubin 0.2 mg/dL (0.15-1.2)
[2020-06-24 15:17] LABS: Acetaminophen < 5.0 ug/mL (10-30); Alcohol Level < 10 mg/dL (0-10); Salicylate < 0.3 mg/dL (3-10)
--- NOTE | 2020-06-24 16:15 | W.ED.PSYCH ---
HPI - Psych General: Chief Complaint: Psychiatric Symptoms Stated Complaint: SWALLOWED BUTTON LAST WK,NOW HAS BLOOD IN STOOL Time Seen by Provider: 06/24/20 13:53 History of Present Illness: HPI Narrative: The patient is a 35-year-old female with past medical history of depression and borderline personality disorder. She comes to the ER complaining of a gush of blood from her rectum earlier today witnessed by her assistant loan processor. There was no stool only blood. She swallowed a button a week ago and it has been moving throughout her GI tract. She has had some cramping. She admits also active suicidal ideations and plans to cut herself with a knife. MD complaint: suicidal ideation and feels depressed History of same: Yes Associated psychiatric symptoms: depression and suicidal ideation Associated symptoms: Reports depression and suicidal ideation; Deny homicidal ideation If self harm: admits thoughts of self harm and has plan Review of Systems General: Reports: 10 or more systems reviewed and unremarkable except in HPI and below Const: Denies: fatigue Eyes: Denies: change in vision, blurry vision or eye redness ENMT: Denies: throat pain, swelling of lips/tongue, ear or mastoid pain or nasal congestion Card: Denies: chest pain, palpitations, irregular heart rhythm, edema, dyspnea on exertion or orthopnea Resp: Denies: dyspnea, productive cough or non-productive cough GI: Denies: abdominal pain, diarrhea or GI cramping : Denies: flank pain, difficulty voiding, urinary frequency or urinary urgency Musc: Denies: neck pain, back pain, extremity pain, joint pain, joint redness, limited range of motion or muscle weakness Skin/Breast: Denies: rash, pruritus, erythema, skin pain or skin tenderness Neuro: Denies: headache(s), numbness in extremities, weakness in extremities, sensory changes, difficulty walking, dizziness, confusion or Slurred speech present Psych: Reports: anxiety, depression and suicidal ideation; Denies: homicidal ideation Endo: Denies: polyuria All/Imm: Denies: urticaria, throat swelling or tongue swelling PFSH ED PFSH: Medical History Constipation H/O swallowed foreign body Hypothyroidism Major depressive disorder, 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 Post-traumatic stress disorder, chronic Social History (Reviewed 06/23/20 @ 14:40 by DELIO Beverly Smoking and tobacco status: never smoked Second hand smoke exposure: No Alcohol intake: never Caregiver/support person: Yes Lives independently: No Household members: other Details: LIVES IN A RETIREMENT Housing: Assisted Living Facility Marital status: Single Current occupational status: disabled History of recent travel: No Current gender identity: Female Additional social history: Patient states that she grew up in [place]. She is currently living in a intermediate and is under guardianship. She enjoys playing games and eating hamburgers. She is despondent that there is no place in [place] where she can get a hamburger and does not know how to make one on her own. Female Reproductive History: Date of last menstrual period: 05/02/20 Physical Exam Const: COMMON NORMALS: no acute distress, average body habitus, patient oriented x3, no limitations, healthy appearing, alert and well nourished GENERAL APPEARANCE: cooperative, comfortable, well kempt and well developed ORIENTATION/CONSCIOUSNESS: Yes awake, Yes oriented to person, Yes oriented to place and Yes oriented to time HENMT: COMMON NORMALS: normocephalic, external ears normal and Normal external nose present HEAD & SCALP: normal to inspection and normocephalic NOSE: Normal external nose present EXTERNAL EAR: Yes external ears normal MOUTH: Normal oral and palatal mucosa present THROAT: posterior oropharynx normal Eye: COMMON NORMALS: Equal, round and reactive pupils present and EOMs intact bilaterally GENERAL EYE: appearance normal, both eyes and all related structures PUPIL: Yes Equal, round and reactive pupils present Neck/C-Spine: COMMON NORMALS: full ROM, no lymphadenopathy, no meningeal signs and no JVD GENERAL: Yes normal visual inspection Lymph: LYMPHATIC: no lymphadenopathy noted Chest: COMMONS NORMALS: normal inspection of the chest and normal palpation of entire chest wall Resp: COMMON NORMALS: normal respiratory effort, No retractions, No use of accessory muscles, clear to auscultation bilaterally and percussion normal EFFORT & INSPECTION: Yes able to speak in complete sentences AUSCULTATION: clear to auscultation bilaterally PERCUSSION: percussion normal Cardio: COMMON NORMALS: no JVD, regular rate, regular rhythm, S1 normal heart sound present, S2 normal heart sound present and Peripheral pulses 2+ throughout RATE: regular rate RHYTHM: regular rhythm HEART SOUNDS: S1 normal heart sound present and S2 normal heart sound present PERIPHERAL PULSES: Peripheral pulses 2+ throughout GI: COMMON NORMALS: Normal to inspection, nondistended, normoactive bowel sounds present, Soft to palpation, non-tender and no masses INSPECTION: Yes normal to inspection PALPATION: Yes Soft to palpation : COMMON NORMALS: Yes no CVA tenderness BLADDER/KIDNEY EXAM: Yes no CVA tenderness Back/Pelvis: COMMON NORMALS: no CVA tenderness, thoracic and lumbar spine normal to inspection, no thoracic nor lumbar tenderness and thoraco-lumbar ROM normal Extremity: COMMON NORMALS: normal to inspection, full ROM, capillary refill normal, no joint enlargement and no pedal edema GENERAL: Yes normal exam except as noted Neuro: COMMON NORMALS: patient oriented x3, CN's II-XII intact bilaterally, moves all extremities, no focal motor deficits, no sensory deficits noted and gait normal SENSORIUM/ORIENTATION: Yes alert, Yes oriented to person, Yes oriented to place and Yes oriented to time MENINGEAL SIGNS: Yes no meningeal signs Psych: COMMON NORMALS: cooperative, normal affect and speech normal APPEARANCE: Yes well kempt ATTITUDE: Yes calm SPEECH: Yes normal speech MOOD & AFFECT: Yes anxious THOUGHT CONTENT: Yes Suicidality present and No Homicidality present INSIGHT: Poor insight present (Psych) JUDGEMENT: Poor judgement present (Psych) Skin: COMMON NORMALS: no rashes or lesions noted GENERAL SKIN EXAM: no rashes or lesions noted Course Vital Signs: Vital signs: Vital Signs Temperature 97.4 F L 06/24/20 13:43 Pulse Rate 109 H 06/24/20 13:43 Respiratory Rate 18 06/24/20 13:43 Blood Pressure 130/81 06/24/20 13:43 Pulse Oximetry 100 06/24/20 13:43 MDM - Psych MDM Narrative: Medical decision making narrative: Patient has had some blood per rectum related to swallowing of a button. Discussed with Dr. Sharma who recommends observation overnight. Discussed with Dr. Harvey who accepts. Discussed with Dr. Kendall who will consult for mental health. 96-hour paperwork written. Lab Data: Labs: Lab Results 06/24/20 06/24/20 06/24/20 Range/Units 14:18 14:18 14:18 WBC (4.0-10.0) 10^3/ uL RBC (4.1-5.3) 10^6/u L Hgb (11.5-15.3) g/dL Hct (37.0-47.0) % MCV (81-99) fL MCH (28.0-34.0) pg MCHC (30.0-36.0) g/dL RDW (12.1-15.1) % Plt Count (130-400) 10^3/c mm MPV (7.4-10.4) fL Neut % (Auto) % Lymph % (Auto) % Turner % (Auto) % Eos % (Auto) % Baso % (Auto) % Neut # (Auto) (1.8-7.7) 10^3/u L Lymph # (Auto) (0.8-4.8) 10^3/u L Turner # (Auto) (0.2-0.9) 10^3/u L Eos # (Auto) (0.0-0.8) 10^3/u L Baso # (Auto) (0.0-0.1) 10^3/u L Nucleated RBC % (a uto) % Nucleated RBCs # /100WBC Sodium (136-145) mmol/L Potassium (3.5-5.1) mmol/L Chloride (98-107) mmol/L Carbon Dioxide (22-29) mmol/L Anion Gap (5-19) BUN (6-20) mg/dL Creatinine (0.5-0.9) mg/dL GFR Calculation (90-130) mL/min Glucose (65-115) mg/dL Calculated Osmolal ity (285-295) mOsm/k g Calcium (8.5-10.5) mg/dL Total Bilirubin (0.15-1.2) mg/dL AST (0-32) U/L ALT (0-33) U/L Alkaline Phosphata se (35-105) IU/L Total Protein (6.6-8.7) g/dL Albumin (3.5-5.2) g/dL Globulin (1.3-4.6) g/dL Lipase (13-60) U/L TSH (0.27-4.20) uIU/ mL HCG, Qual Negative (Negative) Urine Color Yellow (Yellow) Urine Appearance Hazy A (CLEAR) Urine pH 5 (5-7) Ur Specific Gravit y 1.010 (1.005-1.030) Urine Protein Neg (Negative) Urine Glucose (UA) Norm (Normal) Urine Ketones Negative (Negative) Urine Blood 3+ H (Negative) Urine Nitrate Negative (Negative) Urine Bilirubin Neg (Negative) Urine Urobilinogen Norm (Negative) mg/dL Ur Leukocyte Shala ase Negative (Negative) Urine RBC Rare (0-2) /hpf Urine WBC None (0-5) /hpf Ur Squamous Epith Cells 0-4 H (0-5) /hpf Amorphous Sediment Not Reportable Urine Bacteria 2+ H (NONE) /hpf Salicylates (3-10) mg/dL Urine Opiates Scre en Negative (Negative) ng/mL Acetaminophen (10-30) ug/mL Ur Barbiturates Sc reen Negative (Negative) ng/mL Ur Phencyclidine S crn Negative (Negative) ng/mL Ur Amphetamines Sc reen Negative (Negative) ng/mL U Benzodiazepines Scrn Negative (Negative) ng/mL Urine Cocaine Scre en Negative (Negative) ng/mL U Marijuana (THC) Screen Negative (Negative) ng/mL Ethyl Alcohol (0-10) mg/dL 06/24/20 06/24/20 Range/Units 14:30 14:30 WBC 13.0 H (4.0-10.0) 10^3/ uL RBC 4.34 (4.1-5.3) 10^6/u L Hgb 13.4 (11.5-15.3) g/dL Hct 41.2 (37.0-47.0) % MCV 94.9 (81-99) fL MCH 30.9 (28.0-34.0) pg MCHC 32.5 (30.0-36.0) g/dL RDW 14.0 (12.1-15.1) % Plt Count 334 (130-400) 10^3/c mm MPV 10.1 (7.4-10.4) fL Neut % (Auto) 50.6 % Lymph % (Auto) 41.6 % Turner % (Auto) 6.6 % Eos % (Auto) 0.5 % Baso % (Auto) 0.5 % Neut # (Auto) 6.58 (1.8-7.7) 10^3/u L Lymph # (Auto) 5.4 H (0.8-4.8) 10^3/u L Turner # (Auto) 0.9 (0.2-0.9) 10^3/u L Eos # (Auto) 0.1 (0.0-0.8) 10^3/u L Baso # (Auto) 0.1 (0.0-0.1) 10^3/u L Nucleated RBC % (a uto) 0 % Nucleated RBCs # 0.0 /100WBC Sodium 134 L (136-145) mmol/L Potassium 3.6 (3.5-5.1) mmol/L Chloride 101 (98-107) mmol/L Carbon Dioxide 26 (22-29) mmol/L Anion Gap 10.6 (5-19) BUN 18 (6-20) mg/dL Creatinine 0.6 (0.5-0.9) mg/dL GFR Calculation 112.5 (90-130) mL/min Glucose 69 (65-115) mg/dL Calculated Osmolal ity 278 L (285-295) mOsm/k g Calcium 8.8 (8.5-10.5) mg/dL Total Bilirubin 0.2 (0.15-1.2) mg/dL AST 16 (0-32) U/L ALT 10 (0-33) U/L Alkaline Phosphata se 41 (35-105) IU/L Total Protein 7.0 (6.6-8.7) g/dL Albumin 3.7 (3.5-5.2) g/dL Globulin 3.3 (1.3-4.6) g/dL Lipase 25 (13-60) U/L TSH 1.41 (0.27-4.20) uIU/ mL HCG, Qual (Negative) Urine Color (Yellow) Urine Appearance (CLEAR) Urine pH (5-7) Ur Specific Gravit y (1.005-1.030) Urine Protein (Negative) Urine Glucose (UA) (Normal) Urine Ketones (Negative) Urine Blood (Negative) Urine Nitrate (Negative) Urine Bilirubin (Negative) Urine Urobilinogen (Negative) mg/dL Ur Leukocyte Shala ase (Negative) Urine RBC (0-2) /hpf Urine WBC (0-5) /hpf Ur Squamous Epith Cells (0-5) /hpf Amorphous Sediment Urine Bacteria (NONE) /hpf Salicylates < 0.3 L (3-10) mg/dL Urine Opiates Scre en (Negative) ng/mL Acetaminophen < 5.0 L (10-30) ug/mL Ur Barbiturates Sc reen (Negative) ng/mL Ur Phencyclidine S crn (Negative) ng/mL Ur Amphetamines Sc reen (Negative) ng/mL U Benzodiazepines Scrn (Negative) ng/mL Urine Cocaine Scre en (Negative) ng/mL U Marijuana (THC) Screen (Negative) ng/mL Ethyl Alcohol < 10 (0-10) mg/dL Discharge Plan Discharge Patient Disposition: Admitted As Inpatient Clinical Impression: Hematochezia, Suicidal ideation Condition: Stable Coding Level of Care Code ED Chiropractic Assistant for Lasha Turner
--- NOTE | 2020-06-24 17:27 | PM.HP ---
Providers/Chief Complaint Admitting Physician: Anuel Galo MD Primary Care Provider: JACKIE Beverly Chief Complaint: SWALLOWED BUTTON LAST WK,NOW HAS BLOOD IN STOOL History of Present Illness Shelby Cherry is a 35 year old female with past medical history of PTSD, depression, suicidal ideation, behavioral disorder with chronic schizophrenia, history of ingestion of foreign body present to the ER today complaining of bleeding per rectum. Patient states she swallowed a jeans button a week ago. Has been having occasional abdominal cramping for last 2 days and today she noticed blood mixed with stool. He states blood is bright red. Denies any nausea, vomiting, headache, dysuria, constipation, history of hemorrhoids, ongoing menstrual cycle. Patient also states she is having suicidal thoughts and wants to cut herself with a knife though she has not tried it yet at this time. He states he has been having suicidal ideations since last night. Patient's caregiver is at bedside. Patient states she is feeling anxious. Blood work in the ER of 13,000, hemoglobin 13.4, platelet count of 334, sodium of 134, creatinine of 0.6, AST/ALT of 16/10, alkaline phosphatase of 41, beta hCG negative, UA negative for any signs of infection, drug screen negative, abdominal CT showing radiopaque foreign body probably about in an ascending colon, negative acute intra-abdominal or pelvic abnormalities. Review of Systems General: Reports: 10 or more systems reviewed and unremarkable except in HPI and below Const: Denies: fever(s), chills, body aches, change in appetite, change in weight, malaise, night sweats, diaphoresis, change in sleep pattern, daytime sleepiness or snoring Eyes: Denies: change in vision, blurry vision, photophobia, eye discomfort or eye discharge ENMT: Denies: throat pain, enlarged tonsils, hoarseness, mouth pain, oral sores, dry mouth, tinnitus, nasal congestion or post nasal drip Card: Denies: chest pain, palpitations, irregular heart rhythm, edema, swelling of feet/ankles, lightheadedness, syncope, pre-syncope, dyspnea on exertion, orthopnea, leg pain with exertion or acrocyanosis Resp: Denies: dyspnea, productive cough, non-productive cough, wheezing, stridor, pain on inspiration, change in phlegm color, hemoptysis or chest congestion GI: Denies: abdominal pain, nausea, vomiting, hematemesis, coffee ground emesis, dysphagia, heartburn, diarrhea, constipation, bloating, GI cramping, change in bowel habits, pain on defecation, hematochezia or melena : Denies: flank pain, dysuria, urinary frequency, urinary urgency, urinary hesitancy, nocturia or hematuria Musc: Denies: neck pain, back pain, extremity pain, joint pain, joint swelling, joint redness, joint stiffness or limited range of motion Neuro: Denies: headache(s), numbness in extremities, weakness in extremities, sensory changes, lack of coordination, difficulty walking, frequent falls, dizziness, vertigo, confusion, Slurred speech present, difficulty communicating thoughts or seizure-like activity Psych: Denies: anxiety, depression, mood swings, panic attacks, hopelessness or irritability Endo: Denies: polyuria, polydipsia, tired all the time, cold intolerance, excessive sweating, flushing or heat intolerance Hayden/Lymph: Denies: easy bruising or easy bleeding All/Imm: Denies: tongue swelling, facial swelling or acute wheezing Medications/Allergies Home Medications Medication Instructions Recorded Confirmed Last Taken Type polyethylene glycol 3350 17 17 gm PO DAILY PRN #238 gm 07/02/19 06/24/20 08/12/19 Rx gram/dose oral powder acetaminophen 325 mg capsule 650 mg PO Q6H PRN #120 cap 03/16/20 06/24/20 Unknown Rx L norgest/e.estradiol-e.estrad 1 tab PO DAILY@08 04/29/20 06/24/20 06/24/20 08:00 History [Simpesse] levothyroxine 125 mcg tablet 125 mcg PO DAILY@08 #30 tab 05/05/20 06/24/20 06/24/20 Rx clonazepam 0.5 mg tablet 0.5 mg PO TID@,,20 #90 tab 05/22/20 06/24/20 06/24/20 12:00 Rx topiramate 100 mg tablet 100 mg PO BEDTIME@20 #30 tab 05/22/20 06/24/20 06/23/20 Rx venlafaxine 37.5 mg 37.5 mg PO DAILY@08 #30 cap 05/22/20 06/24/20 06/24/20 Rx capsule,extended release 24 hr hydroxyzine HCl 50 mg PO TID PRN 06/16/20 06/24/20 Unknown History Depakote ER 500 mg PO BID@06/24/20 06/24/20 06/24/20 08:00 History Seroquel 100 mg PO DAILY@20 06/24/20 06/24/20 06/23/20 History dextromethorphan-guaifenesin [Safe 10 ml PO Q6H PRN 06/24/20 06/24/20 Unknown History Tussin DM] Allergies Allergy/AdvReac Type Severity Reaction Status Date / Time adhesive Allergy ALGY-Rash Verified 06/18/20 15:19 nitrofurantoin Allergy Unknown Verified 06/18/20 15:19 [From Macrobid] Penicillins Allergy Unknown Verified 06/24/20 16:15 BAND-AIDS Allergy Unknown Uncoded 06/24/20 16:15 TIDE DETERGENT Allergy Unknown Uncoded 06/24/20 16:15 PFSH Acute PFSH: Medical History Constipation H/O swallowed foreign body Hypothyroidism Major depressive disorder, recurrent severe without psychotic features Mental disability Mild intellectual disabilities Post-traumatic stress disorder, chronic Psychoses PTSD (post-traumatic stress disorder) Uses control Surgical History (Updated 06/24/20 @ 17:29 by Anuel Galo MD) History of cholecystectomy Social History Smoking and tobacco status: never smoked Second hand smoke exposure: No Alcohol intake: never Caregiver/support person: Yes Lives independently: No Household members: other Details: LIVES IN A SKILLED NURSING Housing: Assisted Living Facility Marital status: Single Current occupational status: disabled History of recent travel: No Current gender identity: Female Additional social history: Patient states that she grew up in [place]. She is currently living in a long-term and is under guardianship. She enjoys playing games and eating hamburgers. She is despondent that there is no place in [place] where she can get a hamburger and does not know how to make one on her own. Female Reproductive History: Date of last menstrual period: 05/02/20 Vitals/I&O/Wt Last Vital Signs Temp 97.4 F L 06/24/20 13:43 Pulse 109 H 06/24/20 13:43 Resp 18 06/24/20 13:43 BP 130/81 06/24/20 13:43 Pulse Ox 100 06/24/20 13:43 Physical Exam Narrative: EXAM NARRATIVE: General: No acute distress, AO x3, anxious HEENT: PERRLA, pupils bilaterally equal and reactive Chest: Normal vesicular breath sounds, no added sounds, equal good air entry bilaterally CVS: S1-S2 regular, no murmurs, no tachycardia, no gallops, no rubs Abdomen: Soft, nontender, no organomegaly, bowel sounds present, occasional guarding present Neuro: No focal deficits, no facial deformity, AO x3, power 5/5 in all limbs Psych: COMMON NORMALS: cooperative, speech normal and denies hallucinations; negative for denies suicidal ideation ATTITUDE: Yes Guarded attititude/behavior present MOOD & AFFECT: Yes anxious Data : 06/24/20 14:30 06/24/20 14:30 A&P Assessment and plan (1) Suicidal ideation: Status: Acute (2) Swallowed foreign body: Status: Acute Qualifiers: Encounter type: initial encounter Qualified Code(s): T18.9XXA - Foreign body of alimentary tract, part unspecified, initial encounter (3) Hematochezia: Status: Acute (4) Borderline personality disorder: Status: Chronic (5) Post-traumatic stress disorder, chronic: Status: Acute Additional A&P Information Suicidal ideation: 96-hour hold. Sitter at bedside. Admit to ICU. Psych evaluation. History of borderline personality, PTSD: Continue home medications of clonazepam, hydroxyzine as needed, Seroquel, topiramate, venlafaxine. Swallowed foreign body with possible hematochezia: Hemoglobin stable. Monitor hemoglobin. Bowel regimen. Surgery has been consulted from the ER. We will monitor overnight. Full code. Regular diet. 96-hour hold. Sitter at bedside. Low probability of DVT prophylaxis. Hold off on therapeutic DVT prophylaxis because of possible ongoing hematochezia along with low probability of DVT prophylaxis. Attestations Medical Necessity Statement*: Admission for more than 2 midnights for suicidal ideation, swallowing of foreign body with possible hematochezia. 96-hour hold Time Spent in Patient Care: Greater than 35 minutes (>than 50% of time spent in counselling and/or direct pt care on unit). Coding Level of Care Code Acute Station Mechanic for Chg Fwd Diagnoses Suicidal ideation R45.851 Swallowed foreign body T18.9XXA Encounter type: initial encounter Hematochezia K92.1 Borderline personality disorder F60.3 Post-traumatic stress disorder, chronic F43.12
--- NOTE | 2020-06-24 18:00 | PC.NURSE ---
this nurse served as crepe box tender while Dr. David performed rectal exam. Stool negative for occult blood at bedside.
--- NOTE | 2020-06-24 18:02 | PM.CONSULT ---
Providers/Reason For Consult Consulting Physican/Specialty*: Dwayne Sharma MD Reason for Consult*: Bleeding per rectum and history of swallowed foreign body Requesting Physcian: Dr. Cr Attending Physician: Anuel Galo MD Primary Care Provider: JACKIE Beverly History of Present Illness History of Present Illness Chief Complaint: My tummy hurts History of present illness:Ms Shelby Cherry is a pleasant 35 year old female with history of of recent hematochezia today according to the staff at the facility. She reports that she had swallowed a foreign body in the form of jeans button about 8 days ago and she is complaining of intermittent colicky abdominal pain particularly towards the center of the abdomen without being referred nothing seems to make it better or worse. Patient does have history of suicidal ideation history of UTI, hypothyroidism, borderline personality disorder, mild intellectual disabilities, posttraumatic stress disorder, chronic and seizure disorder. Patient presented to the emergency department escorted by her caregiver Ms. Bashir for further evaluation and work-up and initial KUB was done that showed Probable foreign body in ascending colon. Followed by CT scan of the abdomen and pelvis that showed; The lower lungs show no nodules, masses or effusions. The liver, gallbladder, spleen, adrenal glands and pancreas are normal. The kidneys show no cysts, masses, calculi or hydronephrosis. The abdominal aorta is normal in size. No appendicitis or diverticulitis is seen. There is a radiopaque foreign body in the ascending colon. The bladder is unremarkable. No inguinal hernia is seen. The uterus is normal. The bones of the lower thorax, lumbar spine, pelvis, and hips are normal. CT/CT abdomen pelvis wo con [id number] Impression: 1. Radiopaque foreign body, probably a button, in the ascending colon. 2. Negative for acute intra-abdominal or pelvic abnormalities. General surgery was consulted for further evaluation and potential management, patient was seen and evaluated in the emergency department room #9 in the presence of her caregiver and nursing staff Drew Review of Systems General: Reports: 10 or more systems reviewed and unremarkable except in HPI and below Meds/Allergies Home Medications and Allergies Home Medications Medication Instructions Recorded Confirmed Last Taken Type polyethylene glycol 3350 17 17 gm PO DAILY PRN #238 gm 07/02/19 06/24/20 08/12/19 Rx gram/dose oral powder acetaminophen 325 mg capsule 650 mg PO Q6H PRN #120 cap 03/16/20 06/24/20 Unknown Rx L norgest/e.estradiol-e.estrad 1 tab PO DAILY@08 04/29/20 06/24/20 06/24/20 08:00 History [Simpesse] levothyroxine 125 mcg tablet 125 mcg PO DAILY@08 #30 tab 05/05/20 06/24/20 06/24/20 Rx clonazepam 0.5 mg tablet 0.5 mg PO TID@08,12,20 #90 tab 05/22/20 06/24/20 06/24/20 12:00 Rx topiramate 100 mg tablet 100 mg PO BEDTIME@20 #30 tab 05/22/20 06/24/20 06/23/20 Rx venlafaxine 37.5 mg 37.5 mg PO DAILY@08 #30 cap 05/22/20 06/24/20 06/24/20 Rx capsule,extended release 24 hr hydroxyzine HCl 50 mg PO TID PRN 06/16/20 06/24/20 Unknown History Depakote ER 500 mg PO BID@08,20 06/24/20 06/24/20 06/24/20 08:00 History Seroquel 100 mg PO DAILY@20 06/24/20 06/24/20 06/23/20 History dextromethorphan-guaifenesin [Safe 10 ml PO Q6H PRN 06/24/20 06/24/20 Unknown History Tussin DM] Allergies Allergy/AdvReac Type Severity Reaction Status Date / Time adhesive Allergy ALGY-Rash Verified 06/24/20 18:06 nitrofurantoin Allergy Unknown Verified 06/24/20 18:06 [From Macrobid] Penicillins Allergy Unknown Verified 06/24/20 18:06 BAND-AIDS Allergy Unknown Uncoded 06/24/20 18:06 TIDE DETERGENT Allergy Unknown Uncoded 06/24/20 18:06 PFSH Acute PFSH: Medical History Constipation H/O swallowed foreign body Hypothyroidism Major depressive disorder, recurrent severe without psychotic features Mental disability Mild intellectual disabilities Post-traumatic stress disorder, chronic Psychoses PTSD (post-traumatic stress disorder) Uses control Surgical History History of cholecystectomy Social History Smoking and tobacco status: never smoked Second hand smoke exposure: No Alcohol intake: never Caregiver/support person: Yes Lives independently: No Household members: other Details: LIVES IN A CORRECTION Housing: Assisted Living Facility Marital status: Single Current occupational status: disabled History of recent travel: No Current gender identity: Female Additional social history: Patient states that she grew up in [place]. She is currently living in a fpc and is under guardianship. She enjoys playing games and eating hamburgers. She is despondent that there is no place in [place] where she can get a hamburger and does not know how to make one on her own. Female Reproductive History: Date of last menstrual period: 05/02/20 Vitals/I&O/Wt Last Vital Signs Temp 97.4 F L 06/24/20 13:43 Pulse 109 H 06/24/20 13:43 Resp 18 06/24/20 13:43 BP 130/81 06/24/20 13:43 Pulse Ox 100 06/24/20 13:43 Physical Exam Narrative: EXAM NARRATIVE: Patient is conscious alert oriented Head and neck examination PERRLA no masses no cervical lymphadenopathy no jaundice Cardiac examination audible S1-S2 no murmurs no gallops no arrhythmias Chest is clear bilateral,abscence of Rhonchi or wheezes,no surgical emphysema Abdomen mildly tender nondistended soft no organomegaly guarding or rigidity/no signs of peritonitis. Obese Extremities no cyanosis no clubbing no edema Perianal and digital rectal examination was done in the presence of female computer systems support specialist nursing staff Drew and caregiver Ms. Bashir, no evidence of perianal cellulitis or fissures or bleeding or induration or abscess formation. Digital rectal exam showed normal colored light brown stool and no evidence of anal masses. Or induration. Bedside occult blood in stool test was done and was negative. A&P Assessment and plan (1) Hematochezia: After history taking physical examination and reviewing the chart and images of the CT scan with my personal interpretation, we will plan to start the patient on clear liquid diet and have her started on a bottle of magnesium citrate. I do not see any evidence of bleeding per rectum at this point, will monitor that clinically We will continue to follow on the patient clinically and repeat KUB in the morning Status: Acute (2) Swallowed foreign body: Observation Repeated physical examination Repeat KUB in the morning Educating the nursing staff to check patient stools for a foreign body and that to be sent as a specimen for gross pathology Assurance and education All questions have been answered and all concerns have been addressed to patient's satisfaction. Status: Acute Qualifiers: Encounter type: initial encounter Qualified Code(s): T18.9XXA - Foreign body of alimentary tract, part unspecified, initial encounter Consult Attestations Medical Necessity Statement: Per hospitalist and psych services Time Spent in Patient Care: (>than 50% of time spent in counselling and/or direct pt care on unit). Coding Level of Care Code Acute Assembler Tubing for Lasha Turner Diagnoses Hematochezia K92.1 Swallowed foreign body T18.9XXA Encounter type: initial encounter
--- NOTE | 2020-06-24 18:37 | PC.NURSE ---
this ER nurse seen and acknowledged med order for Mag Citrate. Medication not found in ER pyxis. Medication not given in ER. Pt taken to ICU
[2020-06-24 19:30] LABS: Thyroid Stimulating Hormone 1.39 uIU/mL (0.27-4.20)
[2020-06-24] MEDS: magnesium citrate Btl 296 mL PO (19:46)
[2020-06-24 20:07] LABS: Iron 105 ug/dL (37-145); Percent Saturation 22.4 % (20-50); Total Iron Binding Capacity 467 mcg/dl; Unsaturated Iron Binding 362 ug/dL (112-347)
[2020-06-24] MEDS: bisacodyl 5 mg Tablet 10 MG PO (20:56)
[2020-06-24] MEDS: sodium chloride 0.9% 1,000 ML 50 ML IV (20:56)
[2020-06-24] MEDS: CLONazepam 0.5 mg Tablet PO (20:56)
[2020-06-24] MEDS: quetiapine 100 mg Tablet PO (20:57)
[2020-06-24] MEDS: divalproex ER 500 mg Tablet (24H) PO (20:57)
[2020-06-24] MEDS: sennosides 8.6 mg Tablet 17.2 MG PO (20:57)
[2020-06-24] MEDS: famotidine 20 mg Tablet PO (20:57)
[2020-06-24] MEDS: topiramate 100 mg Tablet PO (21:12)
[2020-06-24 22:01] LABS: INR 1.01 (0.8-1.2)
[2020-06-25] VITALS (71 sets, daily range): BP systolic 98–134; BP diastolic 59–84; PULSE 69–112; RESP 15–29; TEMP 36.7–36.8; O2SAT 94–100; BMI 34.3
[2020-06-25] MEDS: ondansetron 2 mg/ML SDV 2 mL 4 MG IVP (02:17)
[2020-06-25 04:34] LABS: Basophils # 0.1 10^3/uL (0.0-0.1); Basophils % 0.4 %; Eosinophils # 0.1 10^3/uL (0.0-0.8); Eosinophils % 0.5 %; Hematocrit 41.8 % (37.0-47.0); Hemoglobin 13.5 g/dL (11.5-15.3); Lymphocytes # 3.9 10^3/uL (0.8-4.8); Lymphocytes % 34.6 %; Mean Corpuscular HGB Conc 32.3 g/dL (30.0-36.0); Mean Corpuscular Hemoglobin 30.5 pg (28.0-34.0); Mean Corpuscular Volume 94.4 fL (81-99); Monocytes # 0.8 10^3/uL (0.2-0.9); Monocytes % 6.8 %; Neutrophils % 57.3 %; Nucleated Red Blood Cells % 0 %; Platelet Count 330 10^3/cmm (130-400); Red Blood Count 4.43 10^6/uL (4.1-5.3); Red Cell Distribution Width 14.3 % (12.1-15.1); White Blood Count 11.4 10^3/uL (4.0-10.0)
[2020-06-25 04:53] LABS: Alanine Aminotransferase 11 U/L (0-33); Albumin Level 3.2 g/dL (3.5-5.2); Alkaline Phosphatase 39 IU/L (35-105); Aspartate Amino Transferase 17 U/L (0-32); Blood Urea Nitrogen 15 mg/dL (6-20); Calcium 8.1 mg/dL (8.5-10.5); Carbon Dioxide 23 mmol/L (22-29); Chloride 107 mmol/L (98-107); Globulin 2.7 g/dL (1.3-4.6); Glomerular Filtration Rate 138.8 mL/min (90-130); Glucose 76 mg/dL (65-115); Osmolality Calculated 288 mOsm/kg (285-295); Sodium 139 mmol/L (136-145); Total Bilirubin 0.3 mg/dL (0.15-1.2); Total Protein 5.9 g/dL (6.6-8.7)
--- NOTE | 2020-06-25 05:00 | XRR_ITS ---
PROCEDURE INFORMATION: Exam: XR Abdomen Exam date and time: 06/25/2020 2:15 AM Age: 35 years old Clinical indication: Patient HX: Foreign body ingestion; Additional info: Swallowed foreign body TECHNIQUE: Imaging protocol: XR of the abdomen. Views: Frontal supine view of the abdomen. 1 View. COMPARISON: CT abdomen pelvis wo con [id number] 06/24/2020 3:29 PM FINDINGS: Gastrointestinal tract: No bowel dilation. Intraperitoneal space: No free air. Bones/joints: Unremarkable. Soft tissues: Metallic foreign body present overlying the ascending colon. No change in position. XR/XR KUB portable [id number] IMPRESSION: 1. Metallic foreign body present overlying the ascending colon. No change in position. 2. No bowel dilation.
--- NOTE | 2020-06-25 07:31 | PM.PN ---
Subjective Subjective: Interval history: Patient overall is about the same she did have multiple loose bowel movements nonbloody and no evidence of passage of the foreign body, otherwise no acute events overnight except for vomiting once yesterday evening Medications: Reviewed: Yes Vitals/I&O/Wt Last Vital Signs Temp 98.2 F 06/25/20 07:00 Pulse 89 06/25/20 07:00 Resp 17 06/25/20 07:00 BP 117/79 06/25/20 07:00 Pulse Ox 97 06/25/20 07:00 06/24/20 06/25/20 06/25/20 22:59 06:59 14:59 Output Total 1999 Balance -1999 Weight last 48 hrs Weight 213 lb Weight 213 lb 4 oz Physical Exam Narrative: EXAM NARRATIVE: Patient is conscious alert oriented X3 BMI 34 Head and neck examination PERRLA no masses no cervical lymphadenopathy no jaundice Abdomen nontender nondistended soft no organomegaly guarding or rigidity/no signs of peritonitis Data : 06/25/20 04:26 06/25/20 04:26 A&P Assessment and plan (1) Hematochezia: As there is no evidence of bleeding per rectum We will start the patient on GoLYTELY for colon cleansing and repeat KUB later this evening Scopolamine for nausea Status: Acute (2) Swallowed foreign body: Observation Repeated physical examination Repeat KUB in the evening Educating the nursing staff to check patient stools for a foreign body and that to be sent as a specimen for gross pathology Assurance and education All questions have been answered and all concerns have been addressed to patient's satisfaction. Status: Acute Qualifiers: Encounter type: initial encounter Qualified Code(s): T18.9XXA - Foreign body of alimentary tract, part unspecified, initial encounter Attestations Medical Necessity Statement*: Per hospitalist and psych services Time Spent in Patient Care: (>than 50% of time spent in counselling and/or direct pt care on unit). Coding Level of Care Code Acute M[employer] And Acquisitions Manager for Lasha Turner Diagnoses Hematochezia K92.1 Swallowed foreign body T18.9XXA Encounter type: initial encounter
[2020-06-25] MEDS: venlafaxine ER (24HR) 37.5 mg Capsule PO (08:00)
[2020-06-25] MEDS: famotidine 20 mg Tablet PO ×2 (08:00→17:38)
[2020-06-25] MEDS: divalproex ER 500 mg Tablet (24H) PO ×2 (08:00→21:48)
[2020-06-25] MEDS: levothyroxine 125 mcg Tablet PO (08:00)
[2020-06-25] MEDS: CLONazepam 0.5 mg Tablet PO ×3 (08:00→21:48)
[2020-06-25] MEDS: bisacodyl 5 mg Tablet 10 MG PO (08:00)
[2020-06-25] MEDS: peg /e-lyte soln 4,000 mL Btl 4000 ML PO (08:09)
[2020-06-25] MEDS: scopolamine 1.5 Patch 1 PATCH TRANSDERMA (08:09)
--- NOTE | 2020-06-25 08:40 | PM.PN ---
Subjective Subjective: Interval history: No events overnight. Patient uncomfortable in bed on examination sitter at bedside. Patient continues to state that she would like to cut herself to kill herself. Patient has had few bowel movements overnight but has not passed the button. No active bleeding overnight. Hemodynamically stable. Medications: Reviewed: Yes Vitals/I&O/Wt Last Vital Signs Temp 98.2 F 06/25/20 07:00 Pulse 89 06/25/20 07:00 Resp 17 06/25/20 07:00 BP 117/79 06/25/20 07:00 Pulse Ox 97 06/25/20 07:00 06/24/20 06/25/20 06/25/20 22:59 06:59 14:59 Output Total 1999 Balance -1999 Weight last 48 hrs Weight 96.615 kg Weight 96.729 kg Physical Exam Narrative: EXAM NARRATIVE: General: No acute distress, AO x3, anxious HEENT: PERRLA, pupils bilaterally equal and reactive Chest: Normal vesicular breath sounds, no added sounds, equal good air entry bilaterally CVS: S1-S2 regular, no murmurs, no tachycardia, no gallops, no rubs Abdomen: Soft, nontender, no organomegaly, bowel sounds present, occasional guarding present Neuro: No focal deficits, no facial deformity, AO x3, power 5/5 in all limbs Psych: COMMON NORMALS: cooperative, speech normal and denies hallucinations; negative for denies suicidal ideation ATTITUDE: Yes Guarded attititude/behavior present SPEECH: Yes normal speech MOOD & AFFECT: Yes anxious Data : 06/25/20 04:26 06/25/20 04:26 A&P Assessment and plan (1) Suicidal ideation: Status: Acute (2) Swallowed foreign body: Status: Acute Qualifiers: Encounter type: initial encounter Qualified Code(s): T18.9XXA - Foreign body of alimentary tract, part unspecified, initial encounter (3) Hematochezia: Status: Acute (4) Borderline personality disorder: Status: Chronic (5) Post-traumatic stress disorder, chronic: Status: Acute Additional A&P Information Suicidal ideation: 96-hour hold. Sitter at bedside. Psych evaluation and transfer to [facility] once accepted. History of borderline personality, PTSD: Continue home medications of clonazepam, hydroxyzine as needed, Seroquel, topiramate, venlafaxine. Swallowed foreign body with possible hematochezia: Hemoglobin stable and no active bleed overnight Surgery recommendations appreciated. Bowel regimen. Plan for repeat KUB in the evening. Full code. Regular diet. 96-hour hold. Sitter at bedside. Low probability of DVT prophylaxis. Attestations Medical Necessity Statement*: Patient requires further hospitalization for evaluation and management of swallowing foreign body with possible hematochezia and 96-hour hold for suicidal ideation by psychiatric evaluation evaluated Time Spent in Patient Care: Greater than 35 minutes (>than 50% of time spent in counselling and/or direct pt care on unit). Coding Level of Care Code Acute Water Plant Pump Operator Supervisor for Lasha Turner Exam Problem Focused Diagnoses Suicidal ideation R45.851 Swallowed foreign body T18.9XXA Encounter type: initial encounter Hematochezia K92.1 Borderline personality disorder F60.3 Post-traumatic stress disorder, chronic F43.12
--- NOTE | 2020-06-25 16:00 | XR_ITS ---
WS: [id number] KUB, portable AP supine, 06/25/2020, 1659 hours. Clinical Data: Swallowed foreign body Comparison: KUB, 06/25/2020, 0224 hours. Findings: The radiopaque foreign body appears to have progressed into the distal descending colon. There is air in the small bowel and the colon. There are monitor leads on the upper abdominal wall. XR/XR KUB portable [id number] Impression: Foreign body has progressed into the distal descending colon.
[2020-06-25] MEDS: sodium chloride 0.9% 1,000 ML 50 ML IV (21:47)
[2020-06-25] MEDS: sennosides 8.6 mg Tablet 17.2 MG PO (21:48)
[2020-06-25] MEDS: quetiapine 100 mg Tablet PO (21:48)
[2020-06-25] MEDS: topiramate 100 mg Tablet PO (21:50)
[2020-06-26] VITALS (15 sets, daily range): BP systolic 75–133; BP diastolic 56–91; PULSE 78–103; RESP 15–29; TEMP 36.6; O2SAT 93–99
--- NOTE | 2020-06-26 05:00 | XRR_ITS ---
PROCEDURE INFORMATION: Exam: XR Abdomen Exam date and time: 06/25/2020 11:59 PM Age: 35 years old Clinical indication: Patient HX: Progression of foreign body in large bowel. ; Additional info: Swallowed foreign body TECHNIQUE: Imaging protocol: XR of the abdomen. Views: Frontal supine view of the abdomen. 1 View. COMPARISON: CR XR KUB portable [id number] 06/25/2020 4:57 PM FINDINGS: Gastrointestinal tract: Nonobstructive bowel gas pattern. A round radiopaque foreign body is re-identified in the left lower quadrant, projecting over the region the sigmoid colon. Bones/joints: Unremarkable. XR/XR KUB portable [id number] IMPRESSION: Foreign body projecting over the left lower quadrant/region of the sigmoid colon, similar when compared to prior study.
--- NOTE | 2020-06-26 05:05 | P.PN_ITS ---
Subjective Subjective: Interval history: Patient overall continues to have loose stools but did not pass the foreign body yet Medications: Reviewed: Yes Vitals/I&O/Wt Last Vital Signs Temp 97.9 F 06/26/20 03:00 Pulse 82 06/26/20 03:00 Resp 20 H 06/26/20 03:00 BP 75/64 06/26/20 03:00 Pulse Ox 94 06/26/20 03:00 06/25/20 06/25/20 06/26/20 14:59 22:59 06:59 Intake Total 960 / 960 1480 / 2440 Output Total 400 / 400 2550 / 2950 Balance 560 / 560 -1070 / -510 Weight last 48 hrs Weight 213 lb Weight 213 lb 4 oz Physical Exam Narrative: EXAM NARRATIVE: Patient is conscious alert oriented X3 BMI 34 Head and neck examination PERRLA no masses no cervical lymphadenopathy no jaundice Abdomen nontender nondistended soft no organomegaly guarding or rigidity/no signs of peritonitis Data : 06/25/20 04:26 06/25/20 04:26 A&P Assessment and plan (1) Hematochezia: Condition was suspected and no evidence of bleeding per rectum. Status: Suspected (2) Swallowed foreign body: Observation Repeated physical examination Morning KUB showed foreign body in the sigmoid region, it seems it is making appropriate progress Educating the nursing staff to check patient stools for a foreign body and that to be sent as a specimen for gross pathology Assurance and education All questions have been answered and all concerns have been addressed to patient's satisfaction. Status: Acute Qualifiers: Encounter type: initial encounter Qualified Code(s): T18.9XXA - Foreign body of alimentary tract, part unspecified, initial encounter Attestations Medical Necessity Statement*: Per psych and hospitalist service Time Spent in Patient Care: (>than 50% of time spent in counselling and/or direct pt care on unit) . Coding Level of Care Code Acute French Weaver for Lasha Turner Diagnoses Hematochezia K92.1 Swallowed foreign body T18.9XXA Encounter type: initial encounter
--- NOTE | 2020-06-26 05:28 | PC.NURSE ---
Shift Summary Patient in for SI attempt due to swallowing a button, KUB showed button to be in sigmoid colon this morning, Patient was resting all night, drank half of her Golytely and had 2 small liquid bms. Patient has a constant ops sitter, and patient has complained of times of wanting to harm herself, wants to go to [facility] and wants a psychologist to see her. She is afibrile and only complaining of some slight discomfort in her belly related to empty stomach from not eating, patient has a healthy appetite that liquid diet is only able to manage some of her discomforts. Jacinto at bedside at 0500 saw the KUB and said as soon as she passes the button she can have some regular food but not until then.
[2020-06-26] MEDS: bisacodyl 5 mg Tablet 10 MG PO (08:27)
[2020-06-26] MEDS: venlafaxine ER (24HR) 37.5 mg Capsule PO (08:27)
[2020-06-26] MEDS: levothyroxine 125 mcg Tablet PO (08:27)
[2020-06-26] MEDS: divalproex ER 500 mg Tablet (24H) PO (08:27)
[2020-06-26] MEDS: CLONazepam 0.5 mg Tablet PO ×2 (08:27→12:31)
[2020-06-26] MEDS: famotidine 20 mg Tablet PO (08:27)
--- NOTE | 2020-06-26 09:03 | PM.PSYCN ---
Providers/Reason for Consult Consulting Physican/Specialty*: Alexandria Feng DO Reason for Consult*: Swallowed foreign object Attending Physician: Anuel Galo MD Primary Care Provider: JACKIE Beverly Psych Consult HPI History of Present Illness Shelby Cherry is a 35 year old female with longstanding history of behavioral issues and currently living with caregivers and senior living environment presented to the emergency department and admitted to the ICU for observation after swallowing a button in the context of recent pattern of behavior of attempting to swallow objects in the context of being jealous of her roommate per chart review of previous outpatient psychiatry note. Patient also states that she does not want to go back because she knows that staff members are upset with her and this is what makes her feel down when she states that she feels depressed. Patient states that this is been going on for the last month or so but states I do not know when asked questions about any particular pieces of history about recent treatment or signs and symptoms or psychiatric review of systems. Currently denying any psychotic symptoms. Denies any side effects of medication treatment. Patient has longstanding history of borderline personality disorder and history of trauma with PTSD with chronic, passive suicidal ideation and making passive statements with the goal of manipulating her environment or avoiding consequences to include her current goal of not returning to her senior living. When asked about intentions or plans when patient makes statements such as I will stab myself she reports that she has not stabbed herself in the past and would likely not try to end her life but does have past history of cutting behaviors at times. Review of Systems General: Reports: 10 or more systems reviewed and unremarkable except in HPI and below Meds Current Medications: Current Medications Generic Name Dose Route Start Last Admin Trade Name Freq PRN Reason Stop Dose Admin Bisacodyl 10 mg 06/24/20 19:41 06/26/20 08:27 Bisacodyl 5 Mg T ablet PO 10 mg DAILY JONAH Administration Clonazepam 0.5 mg 06/24/20 20:00 06/26/20 08:27 Clonazepam 0.5 M g Tablet PO 0.5 mg TID@08,12,20 JONAH Administration Divalproex Sodium 500 mg 06/24/20 20:00 06/26/20 08:27 Divalproex Er 50 0 Mg Tablet (24h) PO 500 mg BID@08,20 JONAH Administration Famotidine 20 mg 06/24/20 19:41 06/26/20 08:27 Famotidine 20 Mg Tablet PO 20 mg BID JONAH Administration Sodium Chloride 1,000 mls @ 50 ml s/hr 06/24/20 19:41 06/25/20 21:47 Sodium Chloride 0.9% IV 50 mls/hr .Q20H JONAH Administration Levothyroxine Sodi um 125 mcg 06/25/20 08:00 06/26/20 08:27 Levothyroxine 12 5 Mcg Tablet PO 125 mcg DAILY@08 JONAH Administration Ondansetron HCl 4 mg 06/24/20 19:41 06/25/20 02:17 Ondansetron 2 Mg /Ml Sdv 2 Ml IVP 4 mg Q8H PRN Administration vomiting, or N/V if npo Quetiapine Fumarat e 100 mg 06/24/20 20:00 06/25/20 21:48 Quetiapine 100 M g Tablet PO 100 mg DAILY@20 JONAH Administration Scopolamine 1 patch 06/25/20 09:00 06/25/20 08:09 Scopolamine 1.5 Patch TRANSDERMA 1 patch Q3D JONAH Administration Senna 17.2 mg 06/24/20 21:00 06/25/20 21:48 Sennosides 8.6 M g Tablet PO 17.2 mg BEDTIME JONAH Administration Topiramate 100 mg 06/24/20 20:00 06/25/20 21:50 Topiramate 100 M g Tablet PO 100 mg BEDTIME@20 JONAH Administration Venlafaxine HCl 37.5 mg 06/25/20 08:00 06/26/20 08:27 Venlafaxine Er ( 24hr) 37.5 Mg Caps ule PO 37.5 mg DAILY@08 JONAH Administration PFSH NPU PFSH: Medical History Constipation H/O swallowed foreign body Hematochezia Hypothyroidism Major depressive disorder, recurrent severe without psychotic features Mental disability Mild intellectual disabilities Post-traumatic stress disorder, chronic Psychoses PTSD (post-traumatic stress disorder) Uses control Surgical History History of cholecystectomy Social History Smoking and tobacco status: never smoked Second hand smoke exposure: No Alcohol intake: never Caregiver/support person: Yes Lives independently: No Household members: other Details: LIVES IN A LONG TERM Housing: Assisted Living Facility Marital status: Single Current occupational status: disabled History of recent travel: No Current gender identity: Female Additional social history: Patient states that she grew up in [place]. She is currently living in a senior living and is under guardianship. She enjoys playing games and eating hamburgers. She is despondent that there is no place in [place] where she can get a hamburger and does not know how to make one on her own. Other Psychiatric History: Other Psychiatric History: Longstanding psychiatric history currently followed outpatient by [facility] [place] by Ms. Sanders Mental Status Exam MSE Comments: Patient lying in bed, fair eye contact, quiet, somewhat subdued, childlike behavior, cooperative with interview Psychomotor activity is somewhat decreased, no agitation Speech is low volume, somewhat slow rate, fair articulation, not pressured I am upset, congruent affect, somewhat constricted, not labile Alert and oriented to person, place, time, situation Memory and concentration are fair at best although patient with poor effort with regards to providing historical data Intellectual functioning is low by history, vocabulary, interview Thought process, delayed at times, patient appeared to be trying to think about responses in order to gain admission, no flight of ideas Thought content, no stated delusions, some perseveration about staff being upset with her, no hallucinations, passive suicidal ideation with no active intent or plan, no homicidal ideation Insight and judgment are fair at best Vitals/I&O/Wt Last Vital Signs Temp 97.9 F 06/26/20 08:00 Pulse 86 06/26/20 08:00 Resp 19 H 06/26/20 08:00 BP 133/91 06/26/20 08:00 Pulse Ox 99 06/26/20 08:00 06/25/20 06/26/20 06/26/20 22:59 06:59 14:59 Intake Total 1480 / 2440 1000 / 3440 500 / 500 Output Total 2550 / 2950 1600 / 4550 250 / 250 Balance -1070 / -510 -600 / -1110 250 / 250 Weight last 48 hrs Weight 96.887 kg Weight 96.615 kg Weight 96.729 kg A&P Assessment and plan (1) Borderline personality disorder: Status: Chronic (2) Ingestion of foreign body: Status: Acute Qualifiers: Encounter type: initial encounter Qualified Code(s): T18.9XXA - Foreign body of alimentary tract, part unspecified, initial encounter Additional A&P Information 35-year-old female with history of borderline personality disorder, low intellectual functioning with poor frustration tolerance and longstanding history of using ingestion of foreign bodies as a means to manipulate her environment to include getting out of situations in which she feels uncomfortable with current ingested foreign body that has not passed. Patient reports some dysphoria and states that she does not want a return home because she knows that her caregivers are upset with her and per chart review there is reports of some strain dynamic to include patient having some jealousy about some sort of living arrangement in her environment. Admission to an inpatient psychiatric unit would be low yield with little to no result of medication changes and would most benefit from behavioral redirection and ongoing behavioral therapies. Low to moderate risk of self-harm given ongoing inadequate, immature coping in the context of low intellectual functioning with no active intent or plan other than attempts to manipulate her environment although patient's risk may be elevated if she continues to demonstrate poor coping in the context of low frustration tolerance in her current environment. Risk mitigation included hospitalization for observation for passage of foreign body and continuation of home medications in a controlled environment. Long-term risk mitigation includes ongoing behavioral therapies to improve patient's coping strategies given that patient's behaviors are least responsive to acute medication changes and patient's reported dysphoria is in response to her environment. Additional risk mitigation includes patient's compliance with her outpatient medication management follow-up. Inpatient psychiatric hospitalization is not indicated at this time; outpatient therapy, medication management is the least restrictive and appropriate level of care at this time DISCONTINUE one-to-one observation Encourage staff as well as home caregivers to continue to provide behavioral redirection and establishing boundaries CONTINUE current medication Follow-up with outpatient medication management and therapy Involuntary Hold Information 96 Hour Hold: 96 Hour Involuntary Admission: No 96 Hour Hold Ending Date: 08/19/19 96 Hour Hold Ending Time: 07:00 Attestations NPU Medical Necessity Statement*: Hospitalist continues to manage passage of swallowed foreign body Time Spent in Patient Care: Greater than 35 minutes (>than 50% of time spent in counselling and/or direct pt care on unit). Coding Level of Care Code Acute [place] for Lasha Fwd Diagnoses Borderline personality disorder F60.3 Ingestion of foreign body T18.9XXA Encounter type: initial encounter
--- NOTE | 2020-06-26 11:20 | PM.DCS ---
Discharge Providers Date of Admission: 06/24/20 16:08 Date of Discharge: June 26, 2020 Attending Provider at Admission: Anuel Galo MD Attending Provider at Discharge: Anuel Galo MD Primary Care Provider: JACKIE Beverly Diagnoses at Discharge Discharge Diagnosis (1) Borderline personality disorder: Status: Chronic (2) Ingestion of foreign body: Status: Acute Qualifiers: Encounter type: initial encounter Qualified Code(s): T18.9XXA - Foreign body of alimentary tract, part unspecified, initial encounter Reason for Visit Reason for Visit: SWALLOWED BUTTON LAST WK,NOW HAS BLOOD IN STOOL Hospital Course Hospital Course Shelby Cherry is a 35 year old female with past medical history of PTSD, depression, suicidal ideation, behavioral disorder with chronic schizophrenia, history of ingestion of foreign body present to the ER today complaining of bleeding per rectum. Patient states she swallowed a jeans button a week ago. Has been having occasional abdominal cramping for last 2 days and today she noticed blood mixed with stool. He states blood is bright red. Denies any nausea, vomiting, headache, dysuria, constipation, history of hemorrhoids, ongoing menstrual cycle. Patient also states she is having suicidal thoughts and wants to cut herself with a knife though she has not tried it yet at this time. He states he has been having suicidal ideations since last night. Patient's caregiver is at bedside. Patient states she is feeling anxious. Blood work in the ER of 13,000, hemoglobin 13.4, platelet count of 334, sodium of 134, creatinine of 0.6, AST/ALT of 16/10, alkaline phosphatase of 41, beta hCG negative, UA negative for any signs of infection, drug screen negative, abdominal CT showing radiopaque foreign body probably about in an ascending colon, negative acute intra-abdominal or pelvic abnormalities. Patient admitted to hospital for monitoring for drop in hemoglobin for reported hematochezia due to foreign body ingestion along with reported suicidal ideations. Patient admitted to the ICU with sitter at bedside and 96-hour hold. Surgery was consulted and she was started on strict bowel regimen. Patient did not have any hematochezia during hospitalization and hemoglobin remained stable. Serial abdominal examination and x-ray PA was done which showed distal mobilization of the foreign body. Psychiatry was consulted and as per the recommendation patient did not need inpatient psychiatric hospitalization. They recommended outpatient therapy and medical management and to discontinue one-to-one observation. Patient's care was further discussed with Dr. Sharma. As per his recommendation patient is to continue taking aggressive bowel regimen. Caregivers have been explained in details to make sure they monitor bowel movements for foreign body. Patient is to follow-up with Dr. Shapr in a week for repeat KUB and further examination. Physical Exam Narrative: EXAM NARRATIVE: General: No acute distress, AO x3, anxious HEENT: PERRLA, pupils bilaterally equal and reactive Chest: Normal vesicular breath sounds, no added sounds, equal good air entry bilaterally CVS: S1-S2 regular, no murmurs, no tachycardia, no gallops, no rubs Abdomen: Soft, nontender, no organomegaly, bowel sounds present, occasional guarding present Neuro: No focal deficits, no facial deformity, AO x3, power 5/5 in all limbs Psych: COMMON NORMALS: cooperative, speech normal and denies hallucinations; negative for denies suicidal ideation ATTITUDE: Yes Guarded attititude/behavior present SPEECH: Yes normal speech MOOD & AFFECT: Yes anxious Discharge Data Data Completed and Pending: Completed Studies During Hospitalization Category Date Time Status CT abdomen pelvis wo con [id number] Urge nt Cat Scan 06/24/20 14:46 Completed XR KUB [id number] Urge nt Exams 06/24/20 13:38 Completed XR KUB portable 7 [id number] Routine Exams 06/25/20 05:00 Completed XR KUB portable 7 [id number] Routine Exams 06/25/20 16:00 Completed XR KUB portable 7 [id number] Routine Exams 06/26/20 05:00 Completed XR chest 1V jez ble [id number] Urgent Exams 06/24/20 13:53 Completed Vitals: Last Vital Signs Temp 97.9 F 06/26/20 08:00 Pulse 84 06/26/20 10:00 Resp 18 06/26/20 10:00 BP 126/81 06/26/20 10:00 Pulse Ox 94 06/26/20 10:00 Discharge Plan Discharge Patient Disposition: Home Condition: Stable Prescriptions: New docusate sodium [Colace] 100 mg capsule 100 mg PO DAILY Qty: 14 RF: 0 sennosides [Senna Laxative] 8.6 mg tablet 8.6 mg PO DAILY Qty: 14 RF: 0 Continued clonazepam 0.5 mg tablet 0.5 mg PO TID@08,12,20 Qty: 90 RF: 1 venlafaxine 37.5 mg capsule,extended release 24hr 37.5 mg PO DAILY@08 Qty: 30 RF: 1 topiramate 100 mg tablet 100 mg PO BEDTIME@20 Qty: 30 RF: 1 levothyroxine 125 mcg tablet 125 mcg PO DAILY@08 Qty: 30 RF: 2 polyethylene glycol 3350 [Miralax] 17 gram/dose powder 17 gm PO DAILY PRN (Reason: constipation) Qty: 238 RF: 2 acetaminophen 325 mg capsule 650 mg PO Q6H PRN (Reason: fever of 100.4 or greater and/or pain) Qty: 120 RF: 2 L norgest/e.estradiol-e.estrad [Simpesse] 0.15 mg-30 mcg (84)/10 mcg (7) tablets,dose pack,3 month 1 tab PO DAILY@08 RF: 0 Safe Tussin DM 10-100 mg/5 mL liquid 10 ml PO Q6H PRN (Reason: Cough) RF: 0 Seroquel 100 mg tablet 100 mg PO DAILY@20 RF: 0 Depakote ER 500 mg tablet extended release 24 hr 500 mg PO BID@08,20 RF: 0 hydroxyzine HCl 50 mg Tablet 50 mg PO TID PRN (Reason: Anxiety) RF: 0 Discharge Orders: Discharge Order (Routine); Ordered 06/26/20 Ordered By: Anuel Galo Referrals: Dwayne Sharma MD [Physician] - 4-7 days (Return to surgery office in 1 week with a repeat KUB prior to clinic visit) Ольга Quarles FNP [Primary Care Provider] - Discharge Diet: Advance as tolerated Discharge Activity: Increase activity as tolerated Patient Instructions: Opioid Safety Activity Restrictions/Additional Instructions: Aggressive bowel regimen. Please follow-up with Dr. Sharma in his office in 4 to 7 days with repeat KUB. Please monitor bowel movements for foreign body. Discharge Attestations Time Spent in Discharge Care*: greater than 30 min Quality Metrics Clinical Quality Measures During this hospital stay, did patient experience: None Coding Level of Care Code Acute Chg FW DC note Diagnoses Borderline personality disorder F60.3 Ingestion of foreign body T18.9XXA Encounter type: initial encounter
== END 2020-06-26 13:35 | disposition home or self-care (01) | DRG 394 ==
LOC: ER 16:18 → ICU 17:19
PROVIDERS: Admitting Provider Student in an Organized Health Care Education/Training Program; Emergency Provider Family Medicine; PCP Nurse Practitioner Family; Visit Provider Student in an Organized Health Care Education/Training Program
DX: T18.4XXA Foreign body in colon, initial encounter (principal); R45.851 Suicidal ideations; F33.9 Major depressive disorder, recurrent, unspecified; K92.1 Melena; X58.XXXA Exposure to other specified factors, initial encounter; F43.12 Post-traumatic stress disorder, chronic; F20.9 Schizophrenia, unspecified; K59.00 Constipation, unspecified; E03.9 Hypothyroidism, unspecified; F70 Mild intellectual disabilities; F60.3 Borderline personality disorder
CPT/HCPCS: 36415; 71045; 74018; 74176; 80053; 80306; 80307; 81001; 81025; 83540; 83550; 83690; 84443; 85025; 85610; 93005; 94664; 99285; J2405; J7030

== ENCOUNTER → 2020-07-01 14:37 | Outpatient (BNVA) | payer MEDICAID, SELFPAY | PROVIDERS: PCP Nurse Practitioner Family; Visit Provider Nurse Practitioner Family | DX: T18.9XXA Foreign body of alimentary tract, part unspecified, initial encounter (principal); X58.XXXA Exposure to other specified factors, initial encounter | CPT/HCPCS: 74018; 74019 ==

== ENCOUNTER 2020-07-05 09:12 | Inpatient (IN) | payer MEDICAID, SELFPAY ==
[2020-07-05 09:13] VITALS: PULSE 101; RESP 18; TEMP 36.6; O2SAT 98; BMI 34.0
--- NOTE | 2020-07-05 09:28 | PC.NURSE ---
Patient was brought immediately back to a ER treatment room 13. Room made psych safe. Patient being changed into paper scrubs. Patient placed under direct observation. Patient has caregiver at bedside.
--- NOTE | 2020-07-05 09:42 | XRR_ITS ---
PROCEDURE INFORMATION: Exam: XR Abdomen Exam date and time: 07/05/2020 9:49 AM Age: 35 years old Clinical indication: Other: Fb; Additional info: Foreign body TECHNIQUE: Imaging protocol: XR of the abdomen. Views: Frontal supine view of the abdomen. 1 View. COMPARISON: CR XR abdomen 1V* [id number] 07/01/2020 3:32 PM FINDINGS: Gastrointestinal tract: Moderate retained feces. Bones/joints: Minimal dextroscoliosis. XR/XR KUB portable [id number] IMPRESSION: 1. Moderate retained feces. 2. No obvious radiopaque foreign body.
--- NOTE | 2020-07-05 09:56 | PC.NURSE ---
pt was changed into paper scrubs upon arrival to ED room. convalescent sitter at bedside. Pt belongings in belongings bag
--- NOTE | 2020-07-05 10:04 | ED_ITS ---
HPI - General Adult General: Chief complaint: General Medical Stated complaint: FB IN THROAT Time Seen by Provider: 07/05/20 09:22 History of Present Illness: HPI narrative: 35-year-old female presents following ingestion of a foreign body. Foreign body ingested was portion of a eye patch child's toy. Patient feels like she has something stuck in her throat. She is able to tolerate fluids and pills and keep them down without difficulty. Patient has a history of chronic self-harm with swallowing and chronic suicidal ideations. Patient has known developmental delay and there is no acute changes in her chronic mental status. Associated symptoms: Deny chest pain, dyspnea, nausea, rash, palpitations or vomiting Review of Systems Const: Denies: fever(s) or chills ENMT: Reports: other (Please see HPI) Card: Denies: chest pain or palpitations Resp: Denies: dyspnea or productive cough GI: Denies: abdominal pain, nausea or vomiting Skin/Breast: Denies: rash Psych: Reports: other (Please see HPI) PFSH ED PFSH: Medical History Constipation H/O swallowed foreign body Hypothyroidism Ingestion of foreign body Major depressive disorder, recurrent severe without psychotic features Mental disability Mild intellectual disabilities Post-traumatic stress disorder, chronic Psychoses PTSD (post-traumatic stress disorder) Uses control Surgical History History of cholecystectomy Social History Smoking and tobacco status: never smoked Second hand smoke exposure: No Alcohol intake: never Caregiver/support person: Yes Lives independently: No Household members: other Details: LIVES IN A PENITENTIARY Housing: Assisted Living Facility Marital status: Single Current occupational status: disabled History of recent travel: No Current gender identity: Female Additional social history: Patient states that she grew up in [place]. She is currently living in a shelter and is under guardianship. She enjoys playing games and eating hamburgers. She is despondent that there is no place in [place] where she can get a hamburger and does not know how to make one on her own. Female Reproductive History: Date of last menstrual period: 05/02/20 Physical Exam Const: COMMON NORMALS: no acute distress, no limitations and alert HENMT: COMMON NORMALS: normocephalic and Normal external nose present HEAD & SCALP: normocephalic NOSE: Normal external nose present MOUTH: Normal oral and palatal mucosa present; no drooling Resp: COMMON NORMALS: normal respiratory effort and No retractions EFFORT & INSPECTION: Yes able to speak in complete sentences Cardio: COMMON NORMALS: regular rate and regular rhythm RATE: regular rate RHYTHM: regular rhythm Extremity: COMMON NORMALS: full ROM Neuro: SENSORIUM/ORIENTATION: Yes alert Psych: COMMON NORMALS: mental status grossly normal ATTITUDE: Yes calm Skin: COMMON NORMALS: no rashes or lesions noted GENERAL SKIN EXAM: no rashes or lesions noted Course Vital Signs: Vital signs: Vital Signs Temperature 97.4 F L 07/05/20 12:13 Pulse Rate 91 07/05/20 12:13 Respiratory Rate 18 07/05/20 12:13 Blood Pressure 112/73 07/05/20 12:13 Pulse Oximetry 100 07/05/20 12:13 MDM - General Adult MDM Narrative: Medical decision making narrative: Discussed with Dr. Lepe. We will admit patient for observation. If she continues to have symptoms throughout the day he will do an EGD later. Imaging Data^: KUB: Attestation: I personally reviewed and interpreted this imaging study as follows: My impression: No foreign body noted Discharge Plan Discharge Patient Disposition: Admitted As Inpatient Admit Provider: Genaro Lepe Clinical Impression: Foreign body alimentary tract Qualifiers: Encounter type: initial encounter Qualified Code(s): T18.9XXA - Foreign body of alimentary tract, part unspecified, initial encounter Condition: Stable Coding Level of Care Code ED Bronc Buster for [facility] Fwd Exam Detailed
[2020-07-05] MEDS: sodium chloride 0.9% 500 ML 100 ML IV (11:25)
[2020-07-05 11:32] VITALS: BP 114/71; PULSE 89; RESP 16; O2SAT 97
[2020-07-05 12:13] VITALS: BP 112/73; PULSE 91; RESP 18; TEMP 36.3; O2SAT 100
[2020-07-05] MEDS: sodium chloride 0.9% 1,000 ML 30 ML IV (13:50)
--- NOTE | 2020-07-05 15:25 | P.HP_ITS ---
Providers/Chief Complaint Admitting Physician: Genaro Lepe MD Primary Care Provider: JACKIE Beverly Chief Complaint: FB IN THROAT History of Present Illness Shelby Cherry is a 35 year old female who presented to the ER today after she ate kids toy eyepatch and has been complaining of sensation of foreign body stuck in her throat. Patient is able to swallow saliva but she continues to have throat discomfort. She denies any chest or abdominal pain. She has had similar admissions in the past after foreign body ingestion. Review of Systems General: Reports: 10 or more systems reviewed and unremarkable except in HPI and below Medications/Allergies Home Medications Medication Instructions Recorded Confirmed Last Taken Type polyethylene glycol 3350 17 17 gm PO DAILY PRN #238 gm 07/02/19 07/05/20 Rx gram/dose oral powder acetaminophen 325 mg capsule 650 mg PO Q6H PRN #120 cap 03/16/20 07/05/20 Unknown Rx L norgest/e.estradiol-e.estrad 1 tab PO DAILY@08 04/29/20 07/05/20 07/05/20 History [Camrese] levothyroxine 125 mcg tablet 125 mcg PO DAILY@08 #30 tab 05/05/20 07/05/20 07/05/20 Rx clonazepam 0.5 mg tablet 0.5 mg PO TID@08,,20 #90 tab 05/22/20 07/05/20 07/05/20 Rx topiramate 100 mg tablet 100 mg PO BEDTIME@20 #30 tab 05/22/20 07/05/20 07/04/20 Rx venlafaxine 37.5 mg 37.5 mg PO DAILY@08 #30 cap 05/22/20 07/05/20 07/05/20 Rx capsule,extended release 24 hr hydroxyzine HCl 50 mg PO TID PRN 06/16/20 07/05/20 Unknown History dextromethorphan-guaifenesin [Safe 10 ml PO Q6H PRN 06/24/20 07/05/20 Unknown History Tussin DM] divalproex [Depakote ER] 500 mg PO BID@08,20 06/24/20 07/05/20 07/05/20 History quetiapine [Seroquel] 100 mg PO DAILY@20 06/24/20 07/05/2007/04/21 History docusate sodium [Colace] 100 mg PO DAILY@07/05/20 07/05/20 07/05/20 History sennosides [Senna Laxative] 8.6 mg PO DAILY@07/05/20 07/05/20 07/05/20 History Allergies Allergy/AdvReac Type Severity Reaction Status Date / Time adhesive Allergy ALGY-Rash Verified 07/05/20 09:21 nitrofurantoin Allergy Unknown Verified 07/05/20 09:21 [From Macrobid] Penicillins Allergy Unknown Verified 07/05/20 09:21 BAND-AIDS Allergy Unknown Uncoded 07/05/20 09:21 TIDE DETERGENT Allergy Unknown Uncoded 07/05/20 09:21 PFSH Acute PFSH: Medical History (Updated 07/05/20 @ 15:23 by Genaro Lepe MD) Constipation H/O swallowed foreign body Hypothyroidism Major depressive disorder, recurrent severe without psychotic features Mental disability Post-traumatic stress disorder, chronic Psychoses Surgical History History of cholecystectomy Social History Smoking and tobacco status: never smoked Second hand smoke exposure: No Alcohol intake: never Caregiver/support person: Yes Lives independently: No Household members: other Details: LIVES IN A SENIOR LIVING Housing: Assisted Living Facility Marital status: Single Current occupational status: disabled History of recent travel: No Current gender identity: Female Additional social history: Patient states that she grew up in [place]. She is currently living in a residential and is under guardianship. She enjoys playing games and eating hamburgers. She is despondent that there is no place in [place] where she can get a hamburger and does not know how to make one on her own. Female Reproductive History: Date of last menstrual period: 05/02/20 Vitals/I&O/Wt Last Vital Signs Temp 97.4 F L 07/05/20 12:13 Pulse 91 07/05/20 12:13 Resp 18 07/05/20 12:13 BP 112/73 07/05/20 12:13 Pulse Ox 100 07/05/20 12:13 07/05/20 07/05/20 07/05/20 06:59 14:59 22:59 Intake Total 103.333 / 103.333 Balance 103.333 / 103.333 Weight last 48 hrs Weight 211 lb Physical Exam Narrative: EXAM NARRATIVE: HEENT: Normocephalic Eye: Sclera /conjunctiva normal Abdomen: Soft to palpation Neurological: Oriented to place person and time Skin: Intact, no lesions appreciated on gross exam A&P Assessment and plan (1) Foreign body alimentary tract: 35-year-old female with learning disability who lives in a residential who ingested child's toy eyepatch earlier today. Patient is able to keep liquids down but still feels like there is something stuck in her throat Plan for EGD for removal of foreign body under MAC Procedure, risks, benefits and alternatives have been discussed with the patient who wishes to proceed with surgery. Status: Acute Qualifiers: Encounter type: initial encounter Qualified Code(s): T18.9XXA - Foreign body of alimentary tract, part unspecified, initial encounter Attestations Medical Necessity Statement*: Foreign body ingestion Coding Level of Care Code Acute Manager Telemetry for [facility] Diagnoses Foreign body alimentary tract T18.9XXA Encounter type: initial encounter
--- NOTE | 2020-07-05 15:41 | P.ANESASSM_ITS ---
Pre-Anesthetic Assessment Pre-Anesthetic Assessment: Height/Weight: Height 1.68 m Weight 95.708 kg Temp Pulse Resp BP Pulse Ox 97.4 F L 91 18 112/73 100 07/05/20 12:13 07/05/20 12:13 07/05/20 12:13 07/05/20 12:13 07/05/20 12:13 Preop Diagnosis: fb ingestion Proposed Procedure: Operation Date: 07/05/20 15:55 Proposed Procedures p EGD FB Removal(Not Applicable) - Genaro Lepe MD Operation Date: 07/05/20 15:55 Proposed Procedures p Foreign Body Removal(Not Applicable) - Genaro Lepe MD Was Beta Cecilia taken within 24 hours: N/A Was Clonidine taken within 24 hours: N/A Social: Social History: No alcohol and No tobacco Exam: Pre-Anes Outpt Exam: alert, oriented x 3, clear to auscultation bilaterally and regular rate & rhythm Airway: Submandibular: WNL Cervical ROM: WNL MP: 2 Dentition: False Pulmonary: Pulmonary: None reported CV/HEM: CV/HEM: None reported : : None reported Hepatic: Hepatic: None reported GI: GI: None reported Metabolic: Metabolic: Thyroid Musc/skel: Musc/skel: None reported Neuropsych: Neuropsych: Seizure Anesthetic Plan: ASA status: 3 Anesthesia: MAC PFSH Anesthesia PFSH: Medical History (Updated 07/05/20 @ 15:23 by Genaro Lepe MD) Constipation H/O swallowed foreign body Hypothyroidism Major depressive disorder, recurrent severe without psychotic features Mental disability Post-traumatic stress disorder, chronic Psychoses Surgical History History of cholecystectomy Social History Smoking and tobacco status: never smoked Second hand smoke exposure: No Alcohol intake: never Caregiver/support person: Yes Lives independently: No Household members: other Details: LIVES IN A RETIREMENT Housing: Assisted Living Facility Marital status: Single Current occupational status: disabled History of recent travel: No Current gender identity: Female Additional social history: Patient states that she grew up in [place]. She is currently living in a chcf and is under guardianship. She enjoys playing games and eating hamburgers. She is despondent that there is no place in [place] where she can get a hamburger and does not know how to make one on her own. Female Reproductive History: Date of last menstrual period: 05/02/20 Data Anesthesia Cardiac Studies: No Data to Display
[2020-07-05 16:08] VITALS: BP 118/69; PULSE 93; RESP 18; TEMP 36.7; O2SAT 100
--- NOTE | 2020-07-05 16:19 | PM.DCS ---
Discharge Providers Date of Admission: 07/05/20 10:23 Date of Discharge: July 05, 2020 Attending Provider at Admission: Genaro Lepe MD Attending Provider at Discharge: Genaro Lepe MD Primary Care Provider: JACKIE Beverly Diagnoses at Discharge Discharge Diagnosis (1) Foreign body alimentary tract: Status: Acute Qualifiers: Encounter type: initial encounter Qualified Code(s): T18.9XXA - Foreign body of alimentary tract, part unspecified, initial encounter Reason for Visit Reason for Visit: FB IN THROAT Hospital Course Hospital Course Shelby Cherry is a 35 year old female who presented to the ER today after she ate kids toy eyepatch and has been complaining of sensation of foreign body stuck in her throat. Patient is able to swallow saliva but she continues to have throat discomfort. She denies any chest or abdominal pain. She has had similar admissions in the past after foreign body ingestion. She did not notice any improvement after few hours of observation therefore she underwent EGD with removal of foreign body. At time of discharge she was hemodynamically stable and tolerating a diet Discharge Data Data Completed and Pending: Completed Studies During Hospitalization Category Date Time Status XR KUB portable [id number] Urgent Exams 07/05/20 09:42 Completed Vitals: Last Vital Signs Temp 98.1 F 07/05/20 16:08 Pulse 93 07/05/20 16:08 Resp 18 07/05/20 16:08 BP 118/69 07/05/20 16:08 Pulse Ox 100 07/05/20 16:08 Discharge Plan Discharge Patient Disposition: Home Condition: Stable Prescriptions: Continued clonazepam 0.5 mg tablet 0.5 mg PO TID@08,,20 Qty: 90 RF: 1 venlafaxine 37.5 mg capsule,extended release 24hr 37.5 mg PO DAILY@08 Qty: 30 RF: 1 topiramate 100 mg tablet 100 mg PO BEDTIME@20 Qty: 30 RF: 1 levothyroxine 125 mcg tablet 125 mcg PO DAILY@08 Qty: 30 RF: 2 polyethylene glycol 3350 [Miralax] 17 gram/dose powder 17 gm PO DAILY PRN (Reason: constipation) Qty: 238 RF: 2 acetaminophen 325 mg capsule 650 mg PO Q6H PRN (Reason: fever of 100.4 or greater and/or pain) Qty: 120 RF: 2 L norgest/e.estradiol-e.estrad [Camrese] 0.15 mg-30 mcg (84)/10 mcg (7) tablets,dose pack,3 month 1 tab PO DAILY@08 RF: 0 dextromethorphan-guaifenesin [Safe Tussin DM] 10-100 mg/5 mL liquid 10 ml PO Q6H PRN (Reason: Cough) RF: 0 quetiapine [Seroquel] 100 mg tablet 100 mg PO DAILY@20 RF: 0 divalproex [Depakote ER] 500 mg tablet extended release 24 hr 500 mg PO BID@08,20 RF: 0 hydroxyzine HCl 50 mg Tablet 50 mg PO TID PRN (Reason: Anxiety) RF: 0 Senna Laxative 8.6 mg tablet 8.6 mg PO DAILY@08 RF: 0 Colace 100 mg capsule 100 mg PO DAILY@08 RF: 0 Discharge Orders: Discharge Order (Routine); Ordered 07/05/20 Ordered By: Genaro Lepe Referrals: Ольга Quarles FNP [Primary Care Provider] - Discharge Diet: Advance as tolerated Discharge Activity: Resume usual activity Patient Instructions: GI Discharge Instructions, Opioid Safety Discharge Attestations Time Spent in Discharge Care*: less than 30 min Quality Metrics Clinical Quality Measures During this hospital stay, did patient experience: None Coding Level of Care Code Acute g [facility] note Diagnoses Foreign body alimentary tract T18.9XXA Encounter type: initial encounter
--- NOTE | 2020-07-05 16:25 | PC.NURSE ---
Patient arrived after GI procedure. Discharge order received and discussed with the patient and the leader of the assisted Sally. Sally stated understanding. IV removed and staff member from the assisted picked patient up.
[2020-07-05 16:30] VITALS: BP 118/69; PULSE 93; RESP 18; TEMP 36.7; O2SAT 100
--- NOTE | 2020-07-05 16:38 | ANE.PACU2 ---
Inpatient post-anesthesia follow up: Airway intact: Yes Vital signs: Temperature 98.1 F Pulse Rate [Monito r] 101 Pulse Rate 93 Respiratory Rate 18 Blood Pressure 118/69 Pulse Oximetry 100 Oxygen Delivery Me thod Nasal Cannula Oxygen Flow Rate Fraction of Inspir ed Oxygen Hydration adequate: Yes Nausea and vomiting: No Pain level: 1 Mental status: Baseline
== END 2020-07-05 18:01 | disposition home or self-care (01) | DRG 394 ==
LOC: ER 10:21 → MEDSURG 10:29
PROVIDERS: Admitting Provider Surgery; Emergency Provider Student in an Organized Health Care Education/Training Program; PCP Nurse Practitioner Family; Visit Provider Surgery
PROC: 0DC18ZZ Extirpation of Matter from Upper Esophagus, Via Natural or Artificial Opening Endoscopic (ICD-10-PCS; principal; 2020-07-05 15:55)
DX: T18.198A Other foreign object in esophagus causing other injury, initial encounter (principal); F33.9 Major depressive disorder, recurrent, unspecified; X83.8XXA Intentional self-harm by other specified means, initial encounter; Y92.89 Other specified places as the place of occurrence of the external cause; F81.9 Developmental disorder of scholastic skills, unspecified; E03.9 Hypothyroidism, unspecified; F43.12 Post-traumatic stress disorder, chronic; Z91.5 Personal history of self-harm
CPT/HCPCS: 43247; 74018; 96360; 96361; 99285; J7030; J7040

== ENCOUNTER 2020-07-09 15:09 | Emergency (ER) | payer MEDICAID, SELFPAY ==
[2020-07-09 15:16] VITALS: BP 121/81; PULSE 116; RESP 18; TEMP 36.8; O2SAT 99; BMI 27.4
--- NOTE | 2020-07-09 15:34 | XRR_ITS ---
PROCEDURE INFORMATION: Exam: XR Abdomen Exam date and time: 07/09/2020 3:43 PM Age: 35 years old Clinical indication: Screening exam; Other: Swallowed a paper clip; Additional info: Swallowd a paper clip TECHNIQUE: Imaging protocol: XR of the abdomen. Views: 2 Views. Upright and supine views. COMPARISON: CR XR KUB portable [id number] 07/05/2020 9:48 AM FINDINGS: Gastrointestinal tract: Normal. No bowel dilation. Intraperitoneal space: Normal. No free air. Bones/joints: Unremarkable for age. Soft tissues: No radiopaque foreign body in the chest or abdomen. XR/XR acute abdomen series [id number] IMPRESSION: No acute findings.
--- NOTE | 2020-07-09 15:48 | PC.NURSE ---
pt 1:1 sitter present after triage of pt. pt's caregiver also available at bedside
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
== END 2020-07-09 16:45 | disposition home or self-care (01) ==
PROVIDERS: Emergency Provider Nurse Practitioner Family; PCP Nurse Practitioner Family
DX: T65.94XA Toxic effect of unspecified substance, undetermined, initial encounter (principal); R45.851 Suicidal ideations
CPT/HCPCS: 74022; 99282

== ENCOUNTER 2020-07-25 21:06 | Emergency (ER) | payer MEDICAID, SELFPAY ==
[2020-07-25 21:16] VITALS: BP 134/79; PULSE 117; RESP 15; TEMP 36.5; O2SAT 97; BMI 32.4
--- NOTE | 2020-07-25 21:22 | ED_ITS ---
HPI - Abdominal Pain General: Chief Complaint: Abdominal Pain Stated Complaint: swallowed part of a pencil Time Seen by Provider: 07/25/20 21:17 History of Present Illness: HPI narrative: 35-year-old female comes in today for concerns of swallowing parts of the pencil. Patient had eaten some of the lead and had eaten the eraser and the tip of the pencil. Patient resides at a [facility] and has behavioral and intellectual disabilities. Patient appears well. Patient appears no acute distress. Associated Symptoms: Reports other (Ingestion of foreign body.) Related Data: Date of Last Menstrual Period: 05/02/20 Review of Systems General: Reports: 10 or more systems reviewed and unremarkable except in HPI and below GI: Reports: other (Ingestion of foreign body.) PFSH ED PFSH: Medical History Constipation H/O swallowed foreign body Hypothyroidism Major depressive disorder, recurrent severe without psychotic features Mental disability Post-traumatic stress disorder, chronic Psychoses Surgical History H/O esophagogastroduodenoscopy (07/05/20) removal of FB History of cholecystectomy Social History Smoking and tobacco status: never smoked Second hand smoke exposure: No Alcohol intake: never Caregiver/support person: Yes Lives independently: No Household members: other Details: LIVES IN A [facility] Housing: Assisted Living Facility Marital status: Single Current occupational status: disabled History of recent travel: No Current gender identity: Female Additional social history: Patient states that she grew up in [place]. She is currently living in a correction and is under guardianship. She enjoys playing games and eating hamburgers. She is despondent that there is no place in [place] where she can get a hamburger and does not know how to make one on her own. Female Reproductive History: Date of last menstrual period: 05/02/20 Physical Exam Const: COMMON NORMALS: no acute distress and patient oriented x3 GENERAL APPEARANCE: cooperative HENMT: COMMON NORMALS: normocephalic and Normal external nose present HEAD & SCALP: normal to inspection and normocephalic NOSE: Normal external nose present MOUTH: Normal oral and palatal mucosa present Eye: GENERAL EYE: appearance normal, both eyes and all related structures Neck/C-Spine: COMMON NORMALS: full ROM Chest: COMMONS NORMALS: normal inspection of the chest Resp: COMMON NORMALS: normal respiratory effort EFFORT & INSPECTION: Yes able to speak in complete sentences Cardio: COMMON NORMALS: regular rate and regular rhythm RATE: regular rate RHYTHM: regular rhythm GI: COMMON NORMALS: non-tender Back/Pelvis: COMMON NORMALS: thoracic and lumbar spine normal to inspection Extremity: COMMON NORMALS: normal to inspection Neuro: COMMON NORMALS: patient oriented x3 and moves all extremities Psych: COMMON NORMALS: mental status grossly normal and cooperative Skin: COMMON NORMALS: no rashes or lesions noted GENERAL SKIN EXAM: no rashes or lesions noted Course Vital Signs: Vital signs: Vital Signs Temperature 97.7 F 07/25/20 21:16 Pulse Rate 115 H 07/25/20 21:31 Respiratory Rate 15 07/25/20 21:16 Blood Pressure 134/79 07/25/20 21:31 Pulse Oximetry 96 07/25/20 21:31 MDM - Abdominal Pain MDM Narrative: Medical decision making narrative: 35-year-old female comes in today after ingesting parts of her mechanical pencil. Patient appears well. Patient was evaluated and recommended to be released back to the [facility]. Patient became defiant and did not want to be sent back to the [facility]. I recommended that patient discuss with her counselor with her concerns regarding her [facility]. Differential diagnosis includes behavioral disorder, oppositional defiant disorder, ingestion of foreign body. Recommended patient follow-up with primary care for further instructions regarding her ingestion. Discharge Plan Discharge Patient Disposition: Home Clinical Impression: Swallowed foreign body Qualifiers: Encounter type: initial encounter Qualified Code(s): T18.9XXA - Foreign body of alimentary tract, part unspecified, initial encounter Condition: Stable Prescriptions: No Action clonazepam 0.5 mg tablet 0.5 mg PO TID@08,12,20 Qty: 90 RF: 1 venlafaxine 37.5 mg capsule,extended release 24hr 37.5 mg PO DAILY@08 Qty: 30 RF: 1 topiramate 100 mg tablet 100 mg PO BEDTIME@20 Qty: 30 RF: 1 omeprazole 20 mg capsule,delayed release(DR/EC) 20 mg PO BID Qty: 60 RF: 0 polyethylene glycol 3350 [Miralax] 17 gram/dose powder 17 gm PO DAILY PRN (Reason: constipation) Qty: 238 RF: 2 acetaminophen 325 mg capsule 650 mg PO Q6H PRN (Reason: fever of 100.4 or greater and/or pain) Qty: 120 RF: 2 levothyroxine 125 mcg tablet See Rx Instructions .ROUTE .COMPLEX Qty: 30 RF: 5 L norgest/e.estradiol-e.estrad [Camrese] 0.15 mg-30 mcg (84)/10 mcg (7) tablets,dose pack,3 month 1 tab PO DAILY@08 RF: 0 dextromethorphan-guaifenesin [Safe Tussin DM] 10-100 mg/5 mL liquid 10 ml PO Q6H PRN (Reason: Cough) RF: 0 quetiapine [Seroquel] 100 mg tablet 100 mg PO DAILY@20 RF: 0 divalproex [Depakote ER] 500 mg tablet extended release 24 hr 500 mg PO BID@08,20 RF: 0 hydroxyzine HCl 50 mg Tablet 50 mg PO TID PRN (Reason: Anxiety) RF: 0 sennosides [Senna Laxative] 8.6 mg tablet 8.6 mg PO DAILY@08 RF: 0 docusate sodium [Colace] 100 mg capsule 100 mg PO DAILY@08 RF: 0 Discharge Orders: Discharge ED (Routine); Ordered 07/25/20 Ordered By: Jamey Cartwright Referrals: Ольга Quarles FNP [Primary Care Provider] - Discharge Diet: Usual diet Discharge Activity: Increase activity as tolerated Patient Instructions: Opioid Safety Activity Restrictions/Additional Instructions: Healthy diet and activity. Drink plenty of fluids. Take your medications as directed. Follow-up with primary care. Coding Level of Care Code ED Storekeeper Engineering for [facility] Fwd Exam Comprehensive
[2020-07-25 21:31] VITALS: BP 134/79; PULSE 115; O2SAT 96
== END 2020-07-25 22:22 | disposition home or self-care (01) ==
PROVIDERS: Emergency Provider Nurse Practitioner Family; PCP Nurse Practitioner Family
DX: T18.9XXA Foreign body of alimentary tract, part unspecified, initial encounter (principal); X58.XXXA Exposure to other specified factors, initial encounter
CPT/HCPCS: 99281

== ENCOUNTER → 2020-07-27 11:11 | Outpatient (BNVA) | payer MEDICAID, SELFPAY | PROVIDERS: PCP Nurse Practitioner Family; Visit Provider Nurse Practitioner | DX: F43.12 Post-traumatic stress disorder, chronic (principal); F70 Mild intellectual disabilities; F60.3 Borderline personality disorder | CPT/HCPCS: 99214 ==

== ENCOUNTER 2020-07-27 18:53 | Emergency (ER) | payer MEDICAID, SELFPAY ==
--- NOTE | 2020-07-27 19:01 | XRR_ITS ---
PROCEDURE INFORMATION: Exam: XR Abdomen Exam date and time: 07/27/2020 7:17 PM Age: 35 years old Clinical indication: Other: Fb; Additional info: Fb, PT ate the metal part of a pencil TECHNIQUE: Imaging protocol: XR of the abdomen. Views: Frontal supine view of the abdomen. 1 View. COMPARISON: CR XR acute abdomen series [id number] 07/09/2020 3:46 PM FINDINGS: Gastrointestinal tract: Nonobstructive bowel gas pattern. Negative for bowel wall pneumatosis. Intraperitoneal space: No metallic radiopaque body in the abdomen identified. No free air. Bones/joints: Unremarkable. Other findings: Moderate fecal volume. XR/XR KUB [id number] IMPRESSION: 1. Negative for bowel obstruction. 2. No retained metal foreign body in the abdomen.
--- NOTE | 2020-07-27 19:01 | XRR_ITS ---
PROCEDURE INFORMATION: Exam: XR Chest Exam date and time: 07/27/2020 7:17 PM Age: 35 years old Clinical indication: Other: Fb; Additional info: Fb, PT ate the top metal part of pencil TECHNIQUE: Imaging protocol: XR of the chest. Views: 1 view. COMPARISON: CR XR chest 1V portable [id number] 06/24/2020 2:02 PM FINDINGS: Lungs: Unremarkable. No consolidation. Pleural spaces: Unremarkable. No pleural effusion. No pneumothorax. Heart/Mediastinum: Unremarkable. No cardiomegaly. Bones/joints: Unremarkable. Soft tissues: No metal foreign body in the chest. XR/XR chest 1V portable [id number] IMPRESSION: No acute chest findings.
[2020-07-27 19:03] VITALS: BP 137/89; PULSE 108; RESP 16; TEMP 36.8; O2SAT 100; BMI 35.0
--- NOTE | 2020-07-27 19:10 | W.ED.GENADLT ---
HPI - General Adult General: Chief complaint: Psychiatric Symptoms Stated complaint: swallowed metal end of pencil Time Seen by Provider: 07/27/20 19:07 History of Present Illness: HPI narrative: This patient is a 35-year-old female who presents to the emergency department with concerns of she swallowed the metal end of a regular #2 pencil. Patient has no respiratory issues. Patient has long history of MR and has done similar things in the past. Patient chronically has thoughts of harming herself really never has any significant issues to harm herself. Patient has been brought to the hospital multiple times in the past according to caregiver at the bedside for same issues and and discharged home because it is of chronic nature. Patient does not appear to be in acute distress. Patient does live in a assisted living care at home and has 24-hour care observation on patient's. Will do medical evaluation treat as needed Associated symptoms: Deny chest pain, dyspnea, headache(s), nausea, rash, palpitations or vomiting Review of Systems General: Reports: 10 or more systems reviewed and unremarkable except in HPI and below Const: Denies: fever(s), chills, body aches or fatigue Eyes: Denies: change in vision or blurry vision ENMT: Denies: throat pain, hoarseness or mouth pain Card: Denies: chest pain, palpitations, irregular heart rhythm, edema, swelling of feet/ankles or lightheadedness Resp: Denies: dyspnea, productive cough, non-productive cough, wheezing or pain on inspiration GI: Denies: abdominal pain, nausea or vomiting : Denies: flank pain, difficulty voiding, dysuria, urinary frequency, urinary urgency or urinary hesitancy Musc: Denies: neck pain, back pain, extremity pain, extremity swelling, joint pain, joint swelling, joint redness, joint warmth or limited range of motion Skin/Breast: Denies: rash, pruritus, erythema or skin tenderness Neuro: Denies: headache(s), numbness in extremities or weakness in extremities Psych: Denies: anxiety or depression PFSH ED PFSH: Medical History Constipation H/O swallowed foreign body Hypothyroidism Major depressive disorder, recurrent severe without psychotic features Mental disability Post-traumatic stress disorder, chronic Psychoses Surgical History H/O esophagogastroduodenoscopy (07/05/20) removal of FB History of cholecystectomy Social History Smoking and tobacco status: never smoked Second hand smoke exposure: No Alcohol intake: never Caregiver/support person: Yes Lives independently: No Household members: other Details: LIVES IN A [facility] Housing: Assisted Living Facility Marital status: Single Current occupational status: disabled History of recent travel: No Current gender identity: Female Additional social history: Patient states that she grew up in [place]. She is currently living in a assisted and is under guardianship. She enjoys playing games and eating hamburgers. She is despondent that there is no place in [place] where she can get a hamburger and does not know how to make one on her own. Female Reproductive History: Date of last menstrual period: 05/02/20 Physical Exam Const: COMMON NORMALS: no acute distress, average body habitus, patient oriented x3, no limitations, healthy appearing, alert and well nourished HENMT: COMMON NORMALS: normocephalic, atraumatic, hearing grossly normal bilaterally, external ears normal, EAC's normal, TM's normal bilaterally, Normal external nose present, Normal nasal mucous membranes and turbinates present, moist oral mucous membranes, oropharynx normal, dentition normal and gingiva normal HEAD & SCALP: normocephalic and atraumatic NOSE: Normal external nose present and Normal nasal mucous membranes and turbinates present EXTERNAL EAR: Yes external ears normal EXTERNAL AUDITORY CANAL: EAC's normal TYMPANIC MEMBRANE: TM's normal bilaterally Neck/C-Spine: COMMON NORMALS: full ROM, no lymphadenopathy, supple, no meningeal signs, no JVD, Thyroid normal and No carotid bruits THYROID: Thyroid normal Chest: COMMONS NORMALS: normal inspection of the chest, normal palpation of entire chest wall, normal inspection of the breasts and normal palpation of the breasts Breast/axilla inspection: Yes normal inspection of the breasts BREAST/AXILLA PALPATION: Yes normal palpation of the breasts Resp: COMMON NORMALS: normal respiratory effort, No retractions, No use of accessory muscles, clear to auscultation bilaterally and percussion normal AUSCULTATION: clear to auscultation bilaterally PERCUSSION: percussion normal Cardio: COMMON NORMALS: no JVD, regular rate, regular rhythm, S1 normal heart sound present, S2 normal heart sound present, No gallops present (Cardio), No clicks present (Cardio), No murmurs present (Cardio), No rub (Cardio) and Peripheral pulses 2+ throughout RATE: regular rate RHYTHM: regular rhythm HEART SOUNDS: S1 normal heart sound present and S2 normal heart sound present PERIPHERAL PULSES: Peripheral pulses 2+ throughout GI: COMMON NORMALS: Normal to inspection, nondistended, normoactive bowel sounds present, Soft to palpation, non-tender, No hepatosplenomegaly present, no masses and no bruits PALPATION: Yes Soft to palpation and Yes No hepatosplenomegaly present : COMMON NORMALS: Yes no CVA tenderness BLADDER/KIDNEY EXAM: Yes no CVA tenderness Back/Pelvis: COMMON NORMALS: no CVA tenderness, thoracic and lumbar spine normal to inspection, no thoracic nor lumbar tenderness, thoraco-lumbar ROM normal and straight leg raise negative bilaterally Extremity: COMMON NORMALS: normal to inspection, full ROM, capillary refill normal, no joint enlargement, no clubbing, cyanosis or edema, no calf tenderness and no pedal edema Neuro: COMMON NORMALS: patient oriented x3 SENSORIUM/ORIENTATION: Yes alert MENINGEAL SIGNS: Yes no meningeal signs Psych: COMMON NORMALS: mental status grossly normal (Patient's mental status is at her baseline chronic MR.) and cooperative Course Reevaluation(s): Reevaluation #1: Negative evaluation in the emergency room for any acute findings. No foreign body seen on x-ray. Patient's chronic conditions are stable. Patient be discharged back to the care facility Time: 20:06 Vital Signs: Vital signs: Vital Signs Temperature 98.2 F 07/27/20 19:03 Pulse Rate 108 H 07/27/20 19:03 Respiratory Rate 16 07/27/20 19:03 Blood Pressure 137/89 07/27/20 19:03 Pulse Oximetry 100 07/27/20 19:03 MDM - General Adult MDM Narrative: Medical decision making narrative: This patient is a 35-year-old female who presents to the emergency department with concerns of she swallowed the metal end of a regular #2 pencil. Patient has no respiratory issues. Patient has long history of MR and has done similar things in the past. Patient chronically has thoughts of harming herself really never has any significant issues to harm herself. Patient has been brought to the hospital multiple times in the past according to caregiver at the bedside for same issues and and discharged home because it is of chronic nature. Patient does not appear to be in acute distress. Patient does live in a assisted living care at home and has 24-hour care observation on patient's. Negative evaluation in the emergency room for any acute findings. No foreign body seen on x-ray. Patient's chronic conditions are stable. Patient be discharged back to the care facility Imaging Data^: KUB: Attestation: I personally reviewed and interpreted this imaging study as follows: My impression: Chest x-ray and KUB performed no foreign body seen. Discharge Plan Discharge Patient Disposition: Home Clinical Impression: Encounter for medical screening examination, Swallowed foreign body Condition: Stable Prescriptions: No Action clonazepam 0.5 mg tablet 0.5 mg PO TID@08,12,20 Qty: 90 RF: 1 venlafaxine 37.5 mg capsule,extended release 24hr 37.5 mg PO DAILY@08 Qty: 30 RF: 1 topiramate 100 mg tablet 100 mg PO BEDTIME@20 Qty: 30 RF: 1 polyethylene glycol 3350 [Miralax] 17 gram/dose powder 17 gm PO DAILY PRN (Reason: constipation) Qty: 238 RF: 2 acetaminophen 325 mg capsule 650 mg PO Q6H PRN (Reason: fever of 100.4 or greater and/or pain) Qty: 120 RF: 2 L norgest/e.estradiol-e.estrad [Camrese] 0.15 mg-30 mcg (84)/10 mcg (7) tablets,dose pack,3 month 1 tab PO DAILY@08 RF: 0 dextromethorphan-guaifenesin [Safe Tussin DM] 10-100 mg/5 mL liquid 10 ml PO Q6H PRN (Reason: Cough) RF: 0 quetiapine [Seroquel] 100 mg tablet 100 mg PO DAILY@20 RF: 0 divalproex [Depakote ER] 500 mg tablet extended release 24 hr 500 mg PO BID@08,20 RF: 0 trazodone 50 mg tablet 50 mg PO DAILY@2000 RF: 0 levothyroxine 125 mcg tablet 125 mcg PO DAILY@0800 RF: 0 omeprazole 20 mg capsule,delayed release(DR/EC) 20 mg PO BID@0800,2000 RF: 0 hydroxyzine HCl 50 mg Tablet 50 mg PO TID PRN (Reason: Anxiety) RF: 0 sennosides [Senna Laxative] 8.6 mg tablet 8.6 mg PO DAILY@08 RF: 0 docusate sodium [Colace] 100 mg capsule 100 mg PO DAILY@08 RF: 0 Discharge Orders: Discharge ED (Routine); Ordered 07/27/20 Ordered By: Demarco Mares Referrals: Ольга Quarles FNP [Primary Care Provider] - Discharge Diet: Advance as tolerated Discharge Activity: Resume usual activity Patient Instructions: Opioid Safety Activity Restrictions/Additional Instructions: Continue with outpatient care and treatment Coding Level of Care Code ED Aircraft Communicator for Lasha Fwd Exam Comprehensive
[2020-07-27 21:09] VITALS: BP 142/90; PULSE 78; RESP 16; TEMP 36.8; O2SAT 97
== END 2020-07-27 21:12 | disposition home or self-care (01) ==
PROVIDERS: Emergency Provider Emergency Medicine; PCP Nurse Practitioner Family
DX: T18.9XXA Foreign body of alimentary tract, part unspecified, initial encounter (principal); X58.XXXA Exposure to other specified factors, initial encounter
CPT/HCPCS: 71045; 74018; 99283

== ENCOUNTER 2020-08-15 18:05 | Emergency (ER) | payer MEDICAID, SELFPAY ==
--- NOTE | 2020-08-15 18:10 | XRR_ITS ---
PROCEDURE INFORMATION: Exam: XR Complete Acute Abdomen Series Including Chest Exam date and time: 08/15/2020 6:10 PM Age: 35 years old Clinical indication: Other: Swallowed soda tab; Additional info: Swallowed fb TECHNIQUE: Imaging protocol: XR complete acute abdomen series, including 2 or more views of the abdomen and a single view chest. COMPARISON: CR (ABDOMEN, ) 07/27/2020 7:14 PM FINDINGS: Lungs: No acute abnormality. Pleural spaces: No pleural effusions. No pneumothorax. Heart/Mediastinum: No cardiomegaly. No foreign body. Gastrointestinal tract: Non-obstructive bowel gas pattern. No foreign body. Intraperitoneal space: No free air. Bones/joints: No acute abnormality. Soft tissues: No radiopaque foreign body demonstrated in the chest, abdomen, or pelvis. XR/XR acute abdomen series [id number] IMPRESSION: 1. No radiopaque foreign body demonstrated in the chest, abdomen, or pelvis. 2. No acute abnormality demonstrated.
[2020-08-15 19:18] VITALS: BP 112/78; PULSE 104; RESP 18; TEMP 36.9; O2SAT 98; BMI 27.4
--- NOTE | 2020-08-15 19:32 | ED_ITS ---
HPI - Psych General: Chief Complaint: Psychiatric Symptoms Stated Complaint: swallowed metal Time Seen by Provider: 08/15/20 18:49 Source: patient and other (caregiver) Mode of arrival: ambulatory Limitations: no limitations History of Present Illness: HPI Narrative: Patient is a 35-year-old female very well-known to our facility for complaints of suicidal ideations. Caregiver and patient tells me that she swallowed the tab of a soda can earlier today in a suicide attempt. Patient does not complain of any difficulty breathing or abdominal pain. She states she is suicidal because her boyfriend doesn't want to be with her anymore. complaint: suicidal ideation Onset (ago): hour(s) History of same: Yes Associated symptoms: Reports suicidal ideation If self harm: has acted on plan (swallowed metal) Review of Systems ENMT: Denies: throat pain or odynophagia Card: Denies: chest pain Resp: Denies: dyspnea GI: Denies: abdominal pain, nausea, vomiting, diarrhea or change in bowel habits Musc: Denies: back pain Psych: Reports: suicidal ideation [facility] ED PFSH: Medical History Constipation H/O swallowed foreign body Hypothyroidism Major depressive disorder, recurrent severe without psychotic features Mental disability Post-traumatic stress disorder, chronic Psychoses Surgical History H/O esophagogastroduodenoscopy (07/05/20) removal of FB History of cholecystectomy Social History Smoking and tobacco status: never smoked Second hand smoke exposure: No Alcohol intake: never Caregiver/support person: Yes Lives independently: No Household members: other Details: LIVES IN A [facility] Housing: Assisted Living Facility Marital status: Single Current occupational status: disabled History of recent travel: No Current gender identity: Female Additional social history: Patient states that she grew up in [place]. She is currently living in a care home and is under guardianship. She enjoys playing games and eating hamburgers. She is despondent that there is no place in [place] where she can get a hamburger and does not know how to make one on her own. Female Reproductive History: Date of last menstrual period: 05/02/20 Physical Exam Const: COMMON NORMALS: no acute distress and alert EXAM LIMITATIONS: other limitations (cognitive delay) GENERAL APPEARANCE: cooperative ORIENTATION/CONSCIOUSNESS: Yes awake, Yes oriented to person and Yes oriented to place Resp: COMMON NORMALS: normal respiratory effort and clear to auscultation bilaterally AUSCULTATION: clear to auscultation bilaterally Cardio: COMMON NORMALS: regular rate and regular rhythm RATE: regular rate RHYTHM: regular rhythm GI: COMMON NORMALS: Normal to inspection, nondistended, normoactive bowel sounds present, Soft to palpation, non-tender, No hepatosplenomegaly present and no masses PALPATION: Yes Soft to palpation and Yes No hepatosplenomegaly present Neuro: SENSORIUM/ORIENTATION: Yes alert, Yes oriented to person and Yes oriented to place Psych: COMMON NORMALS: cooperative, speech normal and denies homicidal ideation APPEARANCE: Yes grossly normal ATTITUDE: Yes calm ACTIVITY/MOTOR BEHAVIOR: Yes appropriate eye contact SPEECH: Yes normal speech OTHER: reports suicidal ideations Course Consultations: Consultation #1: Dr. Kendall-will perform telepsych visit Vital Signs: Vital signs: Vital Signs Temperature 98.4 F 08/15/20 19:18 Pulse Rate 104 H 08/15/20 19:18 Respiratory Rate 18 08/15/20 19:18 Blood Pressure 112/78 08/15/20 19:18 Pulse Oximetry 98 08/15/20 19:18 MDM - Psych MDM Narrative: Medical decision making narrative: Patient stated that she swallowed the metal/aluminum portion of a soda can tab. This should be easily visible on XR however no foreign bodies were noted. Patient is not having any difficulty breathing or abdominal pain. She was evaluated via telemetry psych by Dr. Kendall. Please refer to his specific note for assessment. Patient is cleared for discharge. Imaging Data^: XR acute abdomen : Radiologist's impression: [address] [address] ReportSigned Patient: Shelby Cherry #: [id number]: 1985Acct#:[id number]/Sex: 35 / FADM Date: 08/15/20Loc: ERRoom/Bed:Attending Dr: Ordering Provider/Ordering MD: Toma Minor Date of Service: 08/15/20 Procedure(s): XR acute abdomen series [id number] Accession Number(s): [id number] Report Number: [id number] PROCEDURE INFORMATION: Exam: XR Complete Acute Abdomen Series Including Chest Exam date and time: 08/15/2020 6:10 PM Age: 35 years old Clinical indication: Other: Swallowed soda tab; Additional info: Swallowed fb TECHNIQUE: Imaging protocol: XR complete acute abdomen series, including 2 or more views of the abdomen and a single view chest. COMPARISON: CR (ABDOMEN, ) 07/27/2020 7:14 PM FINDINGS: Lungs: No acute abnormality. Pleural spaces: No pleural effusions. No pneumothorax. Heart/Mediastinum: No cardiomegaly. No foreign body. Gastrointestinal tract: Non-obstructive bowel gas pattern. No foreign body. Intraperitoneal space: No free air. Bones/joints: No acute abnormality. Soft tissues: No radiopaque foreign body demonstrated in the chest, abdomen, or pelvis. XR/XR acute abdomen series [id number] IMPRESSION: 1. No radiopaque foreign body demonstrated in the chest, abdomen, or pelvis. 2. No acute abnormality demonstrated. Dictated By:Bert Carolina MDSigned By:Bert Carolina MDSigned Date/Time:08/15/202099DD/ 56 Discharge Plan Discharge Patient Disposition: Home Clinical Impression: Suicidal ideation Condition: Stable Prescriptions: No Action clonazepam 0.5 mg tablet 0.5 mg PO TID@08,12,20 Qty: 90 RF: 1 topiramate 100 mg tablet 100 mg PO BEDTIME@20 Qty: 30 RF: 1 omeprazole 20 mg capsule,delayed release(DR/EC) 20 mg PO BID@0800,2000 Qty: 60 RF: 5 polyethylene glycol 3350 [Miralax] 17 gram/dose powder 17 gm PO DAILY PRN (Reason: constipation) Qty: 238 RF: 2 acetaminophen 325 mg capsule 650 mg PO Q6H PRN (Reason: fever of 100.4 or greater and/or pain) Qty: 120 RF: 2 venlafaxine 37.5 mg capsule,extended release 24hr 37.5 mg PO DAILY@08 Qty: 30 RF: 1 L norgest/e.estradiol-e.estrad [Camrese] 0.15 mg-30 mcg (84)/10 mcg (7) tablets,dose pack,3 month 1 tab PO DAILY@08 RF: 0 dextromethorphan-guaifenesin [Safe Tussin DM] 10-100 mg/5 mL liquid 10 ml PO Q6H PRN (Reason: Cough) RF: 0 quetiapine [Seroquel] 100 mg tablet 100 mg PO DAILY@20 RF: 0 divalproex [Depakote ER] 500 mg tablet extended release 24 hr 500 mg PO BID@08,20 RF: 0 trazodone 50 mg tablet 50 mg PO DAILY@1999 RF: 0 levothyroxine 125 mcg tablet 125 mcg PO DAILY@0800 RF: 0 hydroxyzine HCl 50 mg Tablet 50 mg PO TID PRN (Reason: Anxiety) RF: 0 sennosides [Senna Laxative] 8.6 mg tablet 8.6 mg PO DAILY@08 RF: 0 docusate sodium [Colace] 100 mg capsule 100 mg PO DAILY@08 RF: 0 Discharge Orders: Discharge ED (Routine); Ordered 08/15/20 Ordered By: Toma Minor Referrals: Ольга Quarles FNP [Primary Care Provider] - Activity Restrictions/Additional Instructions: Patient may return to the emergency department for onset of severe abdominal pain. Otherwise please follow-up with her primary care provider. She may also follow-up with her healthcare provider in regards to the suicidal ideations. Coding Level of Care Code ED Dobby Looms Pegger for Lasha Fwd Exam Detailed
[2020-08-15 21:19] VITALS: BP 112/78; PULSE 87; RESP 14; O2SAT 100
== END 2020-08-15 21:20 | disposition home or self-care (01) ==
PROVIDERS: Emergency Provider Physician Assistant; PCP Nurse Practitioner Family
DX: R45.851 Suicidal ideations (principal)
CPT/HCPCS: 74022; 99282

== ENCOUNTER → 2020-08-25 09:59 | Outpatient (BNVA) | payer MEDICAID, SELFPAY | PROVIDERS: PCP Nurse Practitioner Family; Visit Provider Nurse Practitioner | DX: F43.12 Post-traumatic stress disorder, chronic (principal); F70 Mild intellectual disabilities; F60.3 Borderline personality disorder | CPT/HCPCS: 99214 ==

== ENCOUNTER 2020-09-04 03:40 | Emergency (ER) | payer MEDICAID, SELFPAY ==
[2020-09-04 03:46] VITALS: BP 119/81; PULSE 91; RESP 18; TEMP 36.8; O2SAT 99; BMI 43.5
--- NOTE | 2020-09-04 03:52 | XRR_ITS ---
PROCEDURE INFORMATION: Exam: XR Chest Exam date and time: 09/04/2020 3:52 AM Age: 35 years old Clinical indication: Other: Foreighn body; Prior surgery; Surgery type: Gb; Patient HX: Possible foreign body ingestion. History of fb ingestion. TECHNIQUE: Imaging protocol: XR of the chest. Views: 1 view. COMPARISON: CR (ABDOMEN, ) 08/15/2020 7:40 PM FINDINGS: Lungs: Unremarkable. No consolidation. Pleural spaces: Unremarkable. No pleural effusion. No pneumothorax. Heart/Mediastinum: Unremarkable. No cardiomegaly. Bones/joints: Unremarkable. Other findings: No radiopaque foreign body identified. XR/XR chest 1V portable [id number] IMPRESSION: 1. No radiopaque foreign body identified. 2. No evidence of active cardiopulmonary disease.
--- NOTE | 2020-09-04 03:52 | XRR_ITS ---
PROCEDURE INFORMATION: Exam: XR Abdomen Exam date and time: 09/04/2020 3:52 AM Age: 35 years old Clinical indication: Prior surgery; Surgery type: Gb; Patient HX: Possible foreign body ingestion. History of fb ingestion. TECHNIQUE: Imaging protocol: XR of the abdomen. Views: Frontal supine view of the abdomen. 1 View. COMPARISON: CR (ABDOMEN, ) 08/15/2020 7:40 PM FINDINGS: Gastrointestinal tract: Normal. No bowel dilation. No radiopaque foreign body identified. Bones/joints: Unremarkable. XR/XR KUB [id number] IMPRESSION: 1. No acute findings. 2. No radiopaque foreign body identified.
--- NOTE | 2020-09-04 03:54 | ED_ITS ---
HPI - General Adult General: Chief complaint: Airway/Esophagus Foreign Body Stated complaint: swallowed foreign obj Time Seen by Provider: 09/04/20 03:42 Source: patient Mode of arrival: ambulatory Limitations: no limitations History of Present Illness: HPI narrative: 35-year-old female is very well- known to the ER states that roughly 30 minutes ago she found metal pull tab off a soda can in a trash can and swallowed it. She denies any discomfort. She has had no vomiting or diarrhea. Denies any worsening improving factors. Denies any suicidal ideations. Associated symptoms: Deny chest pain, dyspnea, headache(s), nausea, rash or vomiting Review of Systems Const: Denies: fever(s), chills, body aches or change in appetite Eyes: Denies: blurry vision or eye discomfort ENMT: Denies: throat pain or dental pain Card: Denies: chest pain Resp: Denies: dyspnea GI: Denies: abdominal pain, nausea, vomiting or diarrhea : Denies: dysuria Musc: Denies: neck pain or back pain Skin/Breast: Denies: rash Neuro: Denies: headache(s) Psych: Denies: depression Hayden/Lymph: Denies: easy bruising All/Imm: Denies: urticaria PFSH ED PFSH: Medical History Constipation H/O swallowed foreign body Hypothyroidism Major depressive disorder, recurrent severe without psychotic features Mental disability Post-traumatic stress disorder, chronic Psychoses Surgical History H/O esophagogastroduodenoscopy (07/05/20) removal of FB History of cholecystectomy Social History Smoking and tobacco status: never smoked Second hand smoke exposure: No Alcohol intake: never 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 Housing: Assisted Living Facility Marital status: Single Current occupational status: disabled History of recent travel: No Current gender identity: Female Additional social history: Patient states that she grew up in [place]. She is currently living in a [facility] and is under guardianship. She enjoys playing games and eating hamburgers. She is despondent that there is no place in [place] where she can get a hamburger and does not know how to make one on her own. Female Reproductive History: Date of last menstrual period: 05/02/20 Physical Exam Const: COMMON NORMALS: no acute distress, patient oriented x3 and healthy appearing HENMT: COMMON NORMALS: normocephalic and atraumatic HEAD & SCALP: normocephalic and atraumatic Eye: COMMON NORMALS: Equal, round and reactive pupils present and EOMs intact bilaterally PUPIL: Yes Equal, round and reactive pupils present Neck/C-Spine: COMMON NORMALS: full ROM and supple Chest: COMMONS NORMALS: normal inspection of the chest and normal palpation of entire chest wall Resp: COMMON NORMALS: normal respiratory effort, No retractions, No use of accessory muscles and clear to auscultation bilaterally AUSCULTATION: clear to auscultation bilaterally Cardio: COMMON NORMALS: regular rate, regular rhythm and No murmurs present (Cardio) RATE: regular rate RHYTHM: regular rhythm GI: COMMON NORMALS: Normal to inspection, nondistended, normoactive bowel so unds present, Soft to palpation, non-tender and no masses PALPATION: Yes Soft to palpation Extremity: COMMON NORMALS: normal to inspection and full ROM Neuro: COMMON NORMALS: patient oriented x3, moves all extremities and no focal motor deficits Psych: COMMON NORMALS: mental status grossly normal, Normal thought process present and cooperative THOUGHT PROCESS: Normal thought process present Skin: COMMON NORMALS: no rashes or lesions noted and no wounds GENERAL SKIN EXAM: no rashes or lesions noted Course Vital Signs: Vital signs: Vital Signs Temperature 98.3 F 09/04/20 03:46 Pulse Rate 91 09/04/20 03:46 Respiratory Rate 18 09/04/20 03:46 Blood Pressure 119/81 09/04/20 03:46 Pulse Oximetry 99 09/04/20 03:46 MDM - General Adult MDM Narrative: Medical decision making narrative: Patient presents here with suppose it swallowing a foreign body. X-ray shows no foreign body noted definitely not a soda tab. She is well-appearing here and is stable for discharge and return if worsening. Imaging Data^: CXR: Attestation: I personally reviewed and interpreted this imaging study as follows: My impression: No acute abnormality no foreign body noted KUB: Attestation: I personally reviewed and interpreted this imaging study as follows: My impression: No foreign body noted Discharge Plan Discharge Patient Disposition: Home Clinical Impression: Foreign body, swallowed Qualifiers: Encounter type: initial encounter Qualified Code(s): T18.9XXA - Foreign body of alimentary tract, part unspecified, initial encounter Condition: Stable Prescriptions: No Action omeprazole 20 mg capsule,delayed release(DR/EC) 20 mg PO BID@0800,1999 Qty: 60 RF: 5 medroxyprogesterone [Depo-Provera] 150 mg/mL syringe 150 mg IM ONCE Qty: 1 RF: 3 polyethylene glycol 3350 [Miralax] 17 gram/dose powder 17 gm PO DAILY PRN (Reason: constipation) Qty: 238 RF: 2 acetaminophen 325 mg capsule 650 mg PO Q6H PRN (Reason: fever of 100.4 or greater and/or pain) Qty: 120 RF: 2 venlafaxine 75 mg capsule,extended release 24hr 75 mg PO DAILY Qty: 30 RF: 1 trazodone 50 mg tablet 50 mg PO DAILY@1999 Qty: 30 RF: 1 topiramate 100 mg tablet 100 mg PO BEDTIME@ Qty: 30 RF: 1 divalproex [Depakote ER] 500 mg tablet extended release 24 hr 500 mg PO BID@, Qty: 60 RF: 1 clonazepam 0.5 mg tablet 0.5 mg PO TID@08,12,20 Qty: 90 RF: 1 haloperidol 5 mg tablet 5 mg PO DAILY PRN (Reason: severe agitation) Qty: 30 RF: 1 quetiapine [Seroquel] 100 mg tablet 150 mg PO .evening Qty: 45 RF: 1 dextromethorphan-guaifenesin [Safe Tussin DM] 10-100 mg/5 mL liquid 10 ml PO Q6H PRN (Reason: Cough) RF: 0 levothyroxine 125 mcg tablet 125 mcg PO DAILY@0800 RF: 0 hydroxyzine HCl 50 mg Tablet 50 mg PO TID PRN (Reason: Anxiety) RF: 0 sennosides [Senna Laxative] 8.6 mg tablet 8.6 mg PO DAILY@08 RF: 0 docusate sodium [Colace] 100 mg capsule 100 mg PO DAILY@08 RF: 0 Discharge Orders: Discharge ED (Routine); Ordered 09/04/20 Ordered By: Omar Alicea Referrals: Ольга Quarles FNP [Primary Care Provider] - Discharge Diet: Advance as tolerated Discharge Activity: Resume usual activity Patient Instructions: Foreign Body Ingestion (ED) Coding Level of Care Code ED Orthotist Prosthetist for Chg Fwd Exam Comprehensive
[2020-09-04 04:16] VITALS: BP 116/76; PULSE 88; RESP 16; TEMP 36.9; O2SAT 99
== END 2020-09-04 04:26 | disposition home or self-care (01) ==
PROVIDERS: Emergency Provider Emergency Medicine; PCP Nurse Practitioner Family
DX: T18.9XXA Foreign body of alimentary tract, part unspecified, initial encounter (principal); X58.XXXA Exposure to other specified factors, initial encounter
CPT/HCPCS: 71045; 74018; 99282

== ENCOUNTER 2020-09-26 18:47 | Emergency (ER) | payer MEDICAID, SELFPAY ==
[2020-09-26 18:51] VITALS: BP 138/82; PULSE 125; RESP 20; TEMP 36.9; O2SAT 97
--- NOTE | 2020-09-26 18:56 | XRR_ITS ---
PROCEDURE INFORMATION: Exam: XR Abdomen Exam date and time: 09/26/2020 6:56 PM Age: 35 years old Clinical indication: Screening exam; Other: PT states she swallowed a soda tab; Additional info: Fb TECHNIQUE: Imaging protocol: XR of the abdomen. Views: Frontal supine view of the abdomen. 1 View. COMPARISON: CR (ABDOMEN, ) 09/04/2020 3:50 AM FINDINGS: Gastrointestinal tract: Normal. No bowel dilation. Bones/joints: Unremarkable. Soft tissues: Suboptimal study with under penetration of the x-ray beam secondary to the large body habitus of the patient. No radiopaque foreign body is seen. XR/XR KUB [id number] IMPRESSION: Suboptimal images secondary to the large body habitus of the patient. No radiopaque foreign body is seen.
--- NOTE | 2020-09-26 18:56 | XRR_ITS ---
PROCEDURE INFORMATION: Exam: XR Chest Exam date and time: 09/26/2020 6:56 PM Age: 35 years old Clinical indication: Screening exam; Other screening; Patient HX: PT states she swallowed a soda tab; Additional info: Fb TECHNIQUE: Imaging protocol: XR of the chest. Views: 1 view. COMPARISON: CR (CHEST, ) 09/04/2020 3:50 AM FINDINGS: Lungs: Unremarkable. No consolidation. Pleural spaces: Unremarkable. No pleural effusion. No pneumothorax. Heart/Mediastinum: Unremarkable. No cardiomegaly. Bones/joints: Unremarkable. XR/XR chest 1V portable [id number] IMPRESSION: No acute findings.
[2020-09-26 19:18] VITALS: BP 123/76; PULSE 125; RESP 18; O2SAT 94
--- NOTE | 2020-09-26 19:45 | W.ED.PSYCH ---
HPI - Psych General: Chief Complaint: Psychiatric Symptoms Stated Complaint: swallowed tab of soda can Time Seen by Provider: 09/26/20 19:31 Source: patient Mode of arrival: ambulatory Limitations: no limitations History of Present Illness: HPI Narrative: 35-year-old female who is very well-known to the ER has been seen here multiple times for supposed suicide attempt by swallowing objects. She typically does not swallow set objects. States tonight try to kill herself by swallowing a soda cap. She denies any worse or improving factors. Denies any vomiting or diarrhea. Patient is low functioning. Associated symptoms: Reports depression Review of Systems Const: Denies: fever(s), chills, body aches or change in appetite Eyes: Denies: blurry vision or eye discomfort ENMT: Denies: throat pain or dental pain Card: Denies: chest pain Resp: Denies: dyspnea GI: Denies: abdominal pain, nausea, vomiting or diarrhea : Denies: dysuria Musc: Denies: neck pain or back pain Skin/Breast: Denies: rash Neuro: Denies: headache(s) Psych: Reports: depression Hayden/Lymph: Denies: easy bruising All/Imm: Denies: urticaria PFSH ED PFSH: Medical History Constipation H/O swallowed foreign body Hypothyroidism Major depressive disorder, recurrent severe without psychotic features Mental disability Post-traumatic stress disorder, chronic Psychoses Surgical History H/O esophagogastroduodenoscopy (07/05/20) removal of FB History of cholecystectomy Social History Smoking and tobacco status: never smoked Second hand smoke exposure: No Alcohol intake: never Caregiver/support person: Yes Lives independently: No Household members: other Details: LIVES IN A SENIOR LIVING Housing: Assisted Living Facility Marital status: Single Current occupational status: disabled History of recent travel: No Current gender identity: Female Additional social history: Patient states that she grew up in [place]. She is currently living in a [facility] and is under guardianship. She enjoys playing games and eating hamburgers. She is despondent that there is no place in [place] where she can get a hamburger and does not know how to make one on her own. Female Reproductive History: Date of last menstrual period: 05/02/20 Physical Exam Const: COMMON NORMALS: no acute distress, patient oriented x3 and healthy appearing HENMT: COMMON NORMALS: normocephalic and atraumatic HEAD & SCALP: normocephalic and atraumatic Eye: COMMON NORMALS: Equal, round and reactive pupils present and EOMs intact bilaterally PUPIL: Yes Equal, round and reactive pupils present Neck/C-Spine: COMMON NORMALS: full ROM and supple Chest: COMMONS NORMALS: normal inspection of the chest and normal palpation of entire chest wall Resp: COMMON NORMALS: normal respiratory effort, No retractions, No use of accessory muscles and clear to auscultation bilaterally AUSCULTATION: clear to auscultation bilaterally Cardio: COMMON NORMALS: regular rate, regular rhythm and No murmurs present (Cardio) RATE: regular rate RHYTHM: regular rhythm GI: COMMON NORMALS: Normal to inspection, nondistended, normoactive bowel sounds present, Soft to palpation, non-tender and no masses PALPATION: Yes Soft to palpation Extremity: COMMON NORMALS: normal to inspection and full ROM Neuro: COMMON NORMALS: patient oriented x3, moves all extremities and no focal motor deficits Psych: COMMON NORMALS: mental status grossly normal, Normal thought process present and cooperative THOUGHT PROCESS: Normal thought process present Skin: COMMON NORMALS: no rashes or lesions noted and no wounds GENERAL SKIN EXAM: no rashes or lesions noted Course Vital Signs: Vital signs: Vital Signs Temperature 98.4 F 09/26/20 18:51 Pulse Rate 125 H 09/26/20 19:18 Respiratory Rate 18 09/26/20 19:18 Blood Pressure 123/76 09/26/20 19:18 Pulse Oximetry 94 09/26/20 19:18 MDM - Psych MDM Narrative: Medical decision making narrative: Patient presents here with suppose it foreign body ingestion. X-ray shows no signs of any foreign bodies. Patient is cleared by Dr. Kendall of psychiatry she is not a threat to herself or others and is stable for discharge. She is to follow-up with PCP and return if worsening. Imaging Data^: KUB: Attestation: I personally reviewed and interpreted this imaging study as follows: My impression: No foreign body noted Discharge Plan Discharge Patient Disposition: Home Clinical Impression: Depression Qualifiers: Depression Type: unspecified Qualified Code(s): F32.9 - Major depressive disorder, single episode, unspecified Condition: Stable Prescriptions: No Action omeprazole 20 mg capsule,delayed release(DR/EC) 20 mg PO BID@0800,1999 Qty: 60 RF: 5 medroxyprogesterone [Depo-Provera] 150 mg/mL syringe 150 mg IM ONCE Qty: 1 RF: 3 polyethylene glycol 3350 [Miralax] 17 gram/dose powder 17 gm PO DAILY PRN (Reason: constipation) Qty: 238 RF: 2 acetaminophen 325 mg capsule 650 mg PO Q6H PRN (Reason: fever of 100.4 or greater and/or pain) Qty: 120 RF: 2 venlafaxine 75 mg capsule,extended release 24hr 75 mg PO DAILY Qty: 30 RF: 1 trazodone 50 mg tablet 50 mg PO DAILY@1999 Qty: 30 RF: 1 topiramate 100 mg tablet 100 mg PO BEDTIME@20 Qty: 30 RF: 1 divalproex [Depakote ER] 500 mg tablet extended release 24 hr 500 mg PO BID@, Qty: 60 RF: 1 clonazepam 0.5 mg tablet 0.5 mg PO TID@08,12,20 Qty: 90 RF: 1 haloperidol 5 mg tablet 5 mg PO DAILY PRN (Reason: severe agitation) Qty: 30 RF: 1 quetiapine [Seroquel] 100 mg tablet 150 mg PO .evening Qty: 45 RF: 1 dextromethorphan-guaifenesin [Safe Tussin DM] 10-100 mg/5 mL liquid 10 ml PO Q6H PRN (Reason: Cough) RF: 0 levothyroxine 125 mcg tablet 125 mcg PO DAILY@0800 RF: 0 hydroxyzine HCl 50 mg Tablet 50 mg PO TID PRN (Reason: Anxiety) RF: 0 sennosides [Senna Laxative] 8.6 mg tablet 8.6 mg PO DAILY@08 RF: 0 docusate sodium [Colace] 100 mg capsule 100 mg PO DAILY@08 RF: 0 Discharge Orders: Discharge ED (Routine); Ordered 09/26/20 Ordered By: Omar Alicea Referrals: Ольга Quarles FNP [Primary Care Provider] - Discharge Diet: Advance as tolerated Discharge Activity: Resume usual activity Patient Instructions: Depression (ED) Coding Level of Care Code ED Data Warehousing Specialist for Chg Fwd Exam Comprehensive
[2020-09-26 20:18] VITALS: BP 124/84; PULSE 120; RESP 16; TEMP 36.9
== END 2020-09-26 20:20 | disposition home or self-care (01) ==
PROVIDERS: Emergency Provider Emergency Medicine; PCP Nurse Practitioner Family
DX: F32.9 Major depressive disorder, single episode, unspecified (principal)
CPT/HCPCS: 71045; 74018; 99282

== ENCOUNTER → 2020-09-29 08:13 | Outpatient (BNVA) | payer MEDICAID, SELFPAY | PROVIDERS: PCP Nurse Practitioner Family; Visit Provider Nurse Practitioner | DX: F43.12 Post-traumatic stress disorder, chronic (principal); F70 Mild intellectual disabilities; F60.3 Borderline personality disorder | CPT/HCPCS: 99214 ==

== ENCOUNTER → 2020-09-30 10:30 | Outpatient (BNVA) | payer MEDICAID, SELFPAY | PROVIDERS: PCP Nurse Practitioner Family; Visit Provider Nurse Practitioner Family | DX: M25.572 Pain in left ankle and joints of left foot (principal) | CPT/HCPCS: 73610 ==

== ENCOUNTER → 2020-10-30 15:05 | Outpatient (BNVA) | payer MEDICAID, SELFPAY | PROVIDERS: PCP Nurse Practitioner Family; Visit Provider Nurse Practitioner | DX: F43.12 Post-traumatic stress disorder, chronic (principal); F70 Mild intellectual disabilities; F60.3 Borderline personality disorder | CPT/HCPCS: 99214 ==

== ENCOUNTER → 2020-11-24 09:06 | Outpatient (BNVA) | payer MEDICAID, SELFPAY | PROVIDERS: PCP Nurse Practitioner Family; Visit Provider Nurse Practitioner Family | DX: G40.909 Epilepsy, unspecified, not intractable, without status epilepticus (principal); E03.9 Hypothyroidism, unspecified | CPT/HCPCS: 80053; 80061; 80164; 82306; 82607; 84443; 85025 ==

== ENCOUNTER → 2020-12-25 11:01 | Outpatient (BNVA) | payer MEDICAID, SELFPAY | PROVIDERS: PCP Nurse Practitioner Family; Visit Provider Nurse Practitioner | DX: F43.12 Post-traumatic stress disorder, chronic (principal); F70 Mild intellectual disabilities; F60.3 Borderline personality disorder | CPT/HCPCS: 99214 ==

== ENCOUNTER → 2020-12-28 10:59 | Outpatient (BNVA) | payer MEDICAID, SELFPAY | PROVIDERS: PCP Nurse Practitioner Family; Visit Provider Nurse Practitioner Family | DX: Z11.1 Encounter for screening for respiratory tuberculosis (principal) | CPT/HCPCS: 86580 ==

== ENCOUNTER 2021-01-14 18:08 | Inpatient (IN) | payer MEDICAID, SELFPAY ==
[2021-01-14 18:26] VITALS: BP 125/81; PULSE 132; RESP 24; TEMP 36.8; O2SAT 99; BMI 42.5
--- NOTE | 2021-01-14 18:36 | ECG_ITS ---
[facility] Test Date: 2021-01-14 Pat Name: Shelby Cherry Department: Room: Gender: Female Mortar Maker: : 1985 Requested By: Omar Alicea Order Number: [id number] Kaylin MD: LOUIS HEBERT Measurements Intervals [place] Rate: 122 P: 55 OR: 129 QRS: 28 QRSD: 82 T: 31 QT: 310 QTc: 443 Interpretive Statements SINUS TACHYCARDIA MODERATE ST DEPRESSION [0.05+ mV ST DEPRESSION] INTERPRETATION BASED ON A DEFAULT AGE OF 40 YEARS Compared to ECG 06/24/2020 15:29:02 ST (T wave) deviation now present Sinus rhythm no longer present Electronically Signed On 01-15-2021 14:30:22 CLIENT APPLICATION SUPPORT ENGINEER by LOUIS HEBERT [id number] f
[2021-01-14] MEDS: sodium chloride 0.9% 1,000 ML 999 ML IV ×2 (19:08→19:09)
--- NOTE | 2021-01-14 19:16 | W.ED.GENADLT ---
HPI - General Adult General: Chief complaint: Overdose Stated complaint: Overdose\SI Time Seen by Provider: 01/14/21 18:43 History of Present Illness: HPI narrative: HPI: [36]yo patient w/ hx of depression BIBA for acute suicidal attempt at 5:40pm. Patient took 60 tablets of zytec 10mg. No other ingestions today. On arrival, the patient is AAOx3 and cooperative with my evaluation. No focal complaints of chest pain, shortness of breath, palpitations, N/V, focal GI/ complaints. No complaints of hallucinations. Onset: Acute Duration: ongoing Location: home Severity: severe Review of Systems Narrative: Constitutional: No fever, no chills. HEENT: No vision changes CV: No chest pain, no palpitations PULM: No productive cough, no dyspnea. GI: No abdominal pain, no N/V/D. : No dysuria MSKEL: No muscle pain SKIN: No new rashes, no lesions. NEURO: No headache, no focal weakness. HEME: No visible bruises PSYCH: Normal mood PFSH ED PFSH: Medical History Constipation H/O swallowed foreign body Hypothyroidism Major depressive disorder, recurrent severe without psychotic features Mental disability Post-traumatic stress disorder, chronic Psychiatric care Psychoses Surgical History H/O esophagogastroduodenoscopy (07/05/20) removal of FB History of cholecystectomy Social History Smoking and tobacco status: never smoked Second hand smoke exposure: No Alcohol intake: never 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 Housing: Assisted Living Facility Marital status: Single Current occupational status: disabled History of recent travel: No Current gender identity: Female Additional social history: Patient states that she grew up in [place]. She is currently living in a skilled nursing and is under guardianship. She enjoys playing games and eating hamburgers. She is despondent that there is no place in [place] where she can get a hamburger and does not know how to make one on her own. Female Reproductive History: Date of last menstrual period: 05/02/20 Physical Exam Narrative: EXAM NARRATIVE: Head: Atraumatic Eyes: PERRL, conjunctiva without injection, eyes tracking ENT: Mucous membrane moist NECK: Supple without lymphadenopathy LUNGS: LCTAB CV: RRR ABDOMEN: Soft, no focal TTP. NO guarding rebound, guarding, rigidity. No CVA tenderness to percussion. Neg Vallecillo/Neg McBurney's point tenderness, no suprabupic tenderness to palpation. EXTREMITY: Normal ROM SKIN: No rash or erythema NEURO: Awake and alert. No focal weakness PSYCH: Cooperative mood and affect. Course Vital Signs: Vital signs: Vital Signs Temperature 98.2 F 01/14/21 18:26 Pulse Rate 132 H 01/14/21 18: Respiratory Rate 24 H 01/14/21 18: Blood Pressure 125/81 01/14/21 18: Pulse Oximetry 99 01/14/21 18:26 MDM - General Adult MDM Narrative: Medical decision making narrative: [36]yo patient w/ hx of depression presenting for acute suicide attempt with 60 tablets of 10mg of Zytec at 5:45pm. HDS, exam within normal limit Thoughts are linear and organized, and the patient has no AH/VH, or HI. Clinically the patient displays no overt toxidrome; they are well appearing, with low suspicion for toxic ingestion given history and exam. Symptoms unlikely 2/2 anemia, hypothyroidism, infection, or ICH. Case was discussed with Renan from [facility] who informs that the half life of Zytec is 1 hr. Workup: CBC, CMP, Lipase, salicylate/tylenol, UDS Patient will be giving 2L of NS for sinus tachycardia EKG showing regular sinus tachycardia at HT of [122]. Normal axis. No ST elevations/depressions to suggest coronary occlusion. Normal TN, QRS, QT intervals. Lab findings: wnl [8:30pm] On reassessment, labs and workup wnl. Patient is hemodynamically stable with no acute medical complaints. Case discussed with psychiatric provider Dr. Yuan at [facility] psych inpatient with recommendation for admission. HR improved with IVF. Disposition: Psych Discharge Plan Discharge Patient Disposition: Admitted As Inpatient Clinical Impression: Suicide attempt Condition: Stable Coding Level of Care Code ED Dentofacial Orthopedics Dentist for Lasha Turner
[2021-01-14 19:42] LABS: HCG Qualitative Urine. Negative (Negative)
[2021-01-14 19:50] LABS: Amphetamines Screen Urine Negative (Negative); Barbiturates Screen Urine Negative (Negative); Benzodiazepines Screen Urine Negative (Negative); Cocaine Screen Urine Negative (Negative); Opiate Screen Urine Negative (Negative); PCP Screen Urine Negative (Negative); THC Screen Urine Negative (Negative)
--- NOTE | 2021-01-14 20:15 | PC.NURSE ---
Dr Loco states he made contact with poison control and was told to monitor and give fluids and that pt was out of the window for treatment
[2021-01-14 21:10] LABS: Alanine Aminotransferase 10 U/L (0-33); Albumin Level 3.2 g/dL (3.5-5.2); Alkaline Phosphatase 58 IU/L (35-105); Aspartate Amino Transferase 13 U/L (0-32); Blood Urea Nitrogen 17 mg/dL (6-20); Carbon Dioxide 18 mmol/L (22-29); Chloride 111 mmol/L (98-107); Globulin 2.2 g/dL (1.3-4.6); Glomerular Filtration Rate 93.6 mL/min (90-130); Glucose 115 mg/dL (65-115); Osmolality Calculated 294 mOsm/kg (285-295); Sodium 141 mmol/L (136-145); Total Bilirubin 0.2 mg/dL (0.15-1.2); Total Protein 5.4 g/dL (6.6-8.7)
[2021-01-14 21:13] LABS: Acetaminophen < 5.0 ug/mL (10-30); Alcohol Level < 10 mg/dL (0-10); Salicylate < 0.3 mg/dL (3-10)
[2021-01-14 21:30] LABS: Basophils # 0.1 10^3/uL (0.0-0.1); Basophils % 0.6 %; Eosinophils # 0.2 10^3/uL (0.0-0.8); Hematocrit 42.6 % (37.0-47.0); Lymphocytes # 4.9 10^3/uL (0.8-4.8); Lymphocytes % 31.9 %; Mean Corpuscular HGB Conc 30.5 g/dL (30.0-36.0); Mean Corpuscular Hemoglobin 31.6 pg (28.0-34.0); Mean Corpuscular Volume 103.6 fl (81-99); Mean Platelet Volume 10.2 fL (7.4-10.4); Monocytes # 1.6 10^3/uL (0.2-0.9); Monocytes % 10.4 %; Neutrophils # 8.43 10^3/uL (1.8-7.7); Neutrophils % 55.4 %; Nucleated Red Blood Cells % 0.1 %; Platelet Count 356 10^3/cmm (130-400); Red Blood Count 4.11 10^6/uL (4.1-5.3); Red Cell Distribution Width 15.1 % (12.1-15.1); White Blood Count 15.2 10^3/uL (4.0-10.0)
[2021-01-14 21:50] VITALS: BP 122/74; PULSE 72; RESP 22; O2SAT 97
[2021-01-14 22:18] VITALS: BP 122/74; PULSE 72; RESP 22; O2SAT 97
[2021-01-14 22:35] VITALS: BP 113/73; PULSE 89; RESP 17; TEMP 36.7; O2SAT 100
[2021-01-14] MEDS: quetiapine 100 mg Tablet 150 MG PO (22:58)
[2021-01-14] MEDS: topiramate 100 mg Tablet PO (22:59)
[2021-01-15 06:00] VITALS: BP 125/78; PULSE 113; RESP 17; TEMP 36.6; O2SAT 99
--- NOTE | 2021-01-15 06:26 | W.PM.NPUH&PS ---
Providers/Chief Complaint Admitting Physician: Domenic Yuan MD Primary Care Provider: JACKIE Beverly Chief Complaint: Overdose\SI HPI NPU History of Present Illness Shelby Cherry is a 36 year old female female who was brought to the emergency department by ambulance with the following report: HPI narrative: HPI: [36]yo patient w/ hx of depression BIBA for acute suicidal attempt at 5:40pm. Patient took 60 tablets of zytec 10mg. No other ingestions today. On arrival, the patient is AAOx3 and cooperative with my evaluation. No focal complaints of chest pain, shortness of breath, palpitations, N/V, focal GI/ complaints. No complaints of hallucinations. She is being treated at [facility] and her last visit is as follows: Diagnosis (1) Mild intellectual disabilities: Status: Chronic (2) Post-traumatic stress disorder, chronic: Status: Acute (3) Borderline personality disorder: Status: Chronic Subjective Subjective: Shelby is a 35-year-old female, who presents to [facility] with her caregiver for medication management and follow up for her PTSD, borderline personality disorder, and mild intellectual disability. She was last seen September 29, 2020. Shelby is doing well today. She tells me her mood is good. Her staff states she has been doing well for a while. She has had no ER visits in a month's time which is significant. Shelby has been doing well at [facility]. Her staff states that she has walked away from 3 incidents that could have escalated. She tells me she has a new boyfriend. Her roommate has been gone from the home for greater than a month after having surgery. No specific changes have occurred outside of what has been shown. She has had a behavioral school counselors working in the home but a summary of recommendations have not been received as of yet. She is scheduled to go to [place] for a psychiatric assessment next week. She reports no changes in her physical health. She has not been exposed to Covid and has been attending [facility] on a daily basis. No concerns from her caregiver voiced today. Shelby and her caregiver report the following: Mood: Mood is good/happy Sleep: Sleeping well Appetite: Adequate Level of energy: Adequate Level of anxiety: None reported Ability to do ADLs: Independent Frightening/uncomfortable/or racing thoughts: Denies Thoughts of , suicide, or violence towards others: Denies Hearing voices or seeing hallucinations/visions: Denies ROS Neurological: Seizure disorder Objective Objective: Alert and oriented to person place and time. Patient describes mood as good. Affect is euthymic, happy, responsive. Speech is normal rate, rhythm, and volume. Thought process is logical and organized. No hallucinatory activity noted. Currently denies thoughts of harming self and others. Judgment and insight are poor related to diagnosis and history. Memory is intact for recent and remote events. Attention and concentration are within normal limits. Casually dressed and well-groomed. Behavior is appropriate. Makes direct eye contact. Fund of knowledge is estimated to be below average. Gait is within normal limits. Assesment & Plan Assessment: Shelby is doing well today Plan: Continue Effexor XR 75 mg daily Continue Seroquel 150 mg at bedtime Continue Topamax 100 mg at bedtime Continue Depakote DR 500 mg twice per day Continue clonazepam 0.5 mg 3 times per day Continue Haldol 5 mg daily as needed for severe agitation Prescription refills are sent to [facility] pharmacy Follow-up in 2 months. Staff and Shelby instructed if symptoms worsen or the need to be seen sooner to call the clinic for an earlier appointment. Dr. Kendall consultive in April with the following report: A psychiatric consult was requested to verify whether safe for discharge. Of note Shelby is known quite well to this instructional writer from numerous consults and inpatient stays all surrounding this ingestion of tiny objects and reports of hearing voices and suicidality. After multiple inpatient hospitalizations we have come to understand that Shelby says this however with consultation with her staff there were no behavior changes that show a difference between time she is endorsing these issues and swallowing things when she is not. She was just seen days ago evaluated and discharged and her presentation today is no different. She endorses feeling suicidal, hearing voices and needing her medications changed. When she goes to her outpatient provider she does not ask about medication changes and is not using the outpatient process to take care of her situation. There was nothing new or symptomatic about her presentation there were no signs of internal preoccupation or signs that would indicate that this presentation is any different than any of the voluminous previous ones. We discussed various coping studies and the importance of her identifying activities and options to fill the void and boredom that she has being stuck in her situation with limited social outlets and limited interactions with diverse or different individuals. She was last admitted in September 2019 with the following discharge summary: Diagnoses at Discharge Discharge Diagnosis (1) Suicidal ideation: Status: Resolved (2) H/O swallowed foreign body: Status: Resolved (3) Hypothyroidism: Status: Chronic (4) Borderline personality disorder: Status: Chronic (5) Mild intellectual disabilities: Status: Chronic (6) Major depressive disorder, recurrent severe without psychotic features: Status: Ruled-out Reason for Visit Reason for Visit: swallowed unknown object Brief History: Shelby Cherry is a 34 year old female with primary diagnoses of cognitive deficit and borderline personality disorder. She again presents to the emergency room for at least the third time in the past year after having swallowed a small object out of frustration with her living condition. In addition to her cognitive deficit, her verbal communication skills are limited. By her report, she is unhappy with her current living situation. She feels like they treat her badly though she denies any actual physical abuse. Her presentation today is almost identical to her last. She says that she is hearing voices that tell her to kill herself. However she is unable to define those voices. She cannot say whether there is one or many. She does not recognize the voice. She has no intent or plan to kill herself. However she does confirm the presence of persistent despondent and unhappiness with her living situation. She reports feelings of hopelessness and worthlessness. She is sad and blue on a daily basis. Laboratory Tests 09/01/19 09/22/19 09/22/19 18:35 21:21 21:35 TSH 3.83 Valproic Acid 27.7 L 19.8 L U Benzodiazepines Scrn Positive H ER physician note: Shelby is a 34-year-old female who comes in after she swallowed a plastic piece from a toy game that is less than a size and diameter. Patient says she did this in an effort to hurt herself. She says that no one cares about her and that is why she feels depressed. Patient has history of previous suicide attempts. Patient is very quiet, seems simple and does not offer much in the way of details other than asking for herself to be admitted to the neuropsychiatric unit. Her front desk person who is here with her confirms these Hospital Course Hospital Course Admission plan: Patient will be admitted to the adult psychiatric unit and entered into the full array of individual and group therapies as part of that unit protocol. They will be provided 24-hour access to trained psychiatric nursing care and monitoring. Potential benefits and side effects of medications were discussed as well as the time course of expected response to medication changes. This is a recurrent pattern and has resolved with psychosocial interventions in the past. It is reasonable to expect that this problem will resolve with similar intervention. However it is noted that her Depakote level is low and she has a history of seizure disorder. She is on relatively high dose Abilify and other than her self-reported presence of auditory hallucinations without any objective signs or documented history of psychosis, the need for such a high dose may place her at risk for side effects without significant benefit. It is also noted that she meets criteria still for clinical depression even though she has been on fluoxetine for nearly a year. Additionally, her urine drug screen has been positive for benzodiazepines on each presentation and there is no indication of that benzodiazepines are being prescribed to her. Plan is to reduce Abilify to 10 mg at bedtime. Depakote will be increased to 1000 mg at bedtime. Fluoxetine will be replaced with Effexor XR 75 mg daily. New aripiprazole 10 mg Tablet 10 mg PO DAILY Qty: 30 RF: 5 venlafaxine 37.5 mg Capsule,Extended Release 24hr 37.5 mg PO DAILY Qty: 30 RF: 5 Continued acetaminophen 325 mg capsule 650 mg PO Q6H PRN (Reason: fever of 100.4 or greater and/or pain) Qty: 120 RF: 2 dextromethorphan-guaifenesin [Guaiasorb DM] 10-100 mg/5 mL liquid 10 ml PO Q6H PRN (Reason: cough) Qty: 120 RF: 2 L norgest/e.estradiol-e.estrad [Camrese] 0.15 mg-30 mcg (84)/10 mcg (7) tablets,dose pack,3 month 1 tab PO DAILY RF: 0 Depakote ER 250 mg tablet extended release 24 hr 500 mg PO BEDTIME 30 Days Qty: 30 RF: 1 prazosin 1 mg capsule 2 mg PO DAILY Qty: 60 RF: 1 topiramate 100 mg tablet 100 mg PO BEDTIME 30 Days Qty: 30 RF: 1 trazodone 50 mg tablet 50 mg PO BEDTIME PRN (Reason: Sleep) 30 Days Qty: 30 RF: 1 polyethylene glycol 3350 [Miralax] 17 gram/dose powder 17 gm PO DAILY PRN (Reason: constipation) Qty: 238 RF: 2 L norgest/e.estradiol-e.estrad [Camrese] 0.15 mg-30 mcg (84)/10 mcg (7) tablets,dose pack,3 month 1 tab PO DAILY 30 Days Qty: 30 RF: 1 levothyroxine 100 mcg capsule 100 mcg PO DAILY 30 Days Qty: 30 RF: 1 She was admitted to the neuropsychiatry unit for definitive treatment of these issues. She was found in bed at 1020 in the morning. She was laying on her stomach and did not rollover to make eye contact. The first thing she said was that she did not feel like she was ready to go home. She had told the nurse earlier that she wanted to go home. She said that she was still depressed and suicidal. She initially said that nothing had happened to cause her to be suicidal. She has been suicidal for years. She then said that yesterday was her birthday and it is also the anniversary of her mother's . She said that probably did have something to do with her suicide attempt. She says that she hears voices telling her to kill herself. She says they have been somewhat worse lately. She has been hearing that voice for years also. She says that she has been sleeping well. She did wants her antidepressant increased. Meds NPU Home Medications Medication Instructions Recorded Confirmed Last Taken Type polyethylene glycol 3350 17 17 gm PO DAILY PRN #238 gm 07/02/19 01/14/21 08/12/19 Rx gram/dose oral powder acetaminophen 325 mg capsule 650 mg PO Q6H PRN #120 cap 03/16/20 01/14/21 Unknown Rx hydroxyzine HCl 50 mg PO TID PRN 06/16/20 01/14/21 Unknown History dextromethorphan-guaifenesin [Safe 10 ml PO Q6H PRN 06/24/20 01/14/21 Unknown History Tussin DM] docusate sodium [Colace] 100 mg PO DAILY 07/05/20 01/14/21 07/27/20 History sennosides [Senna Laxative] 8.6 mg PO DAILY 07/05/20 01/14/21 07/08/20 History levothyroxine 125 mcg PO DAILY 07/27/20 01/14/21 07/27/20 History haloperidol 5 mg tablet 5 mg PO DAILY PRN #30 tab 10/30/20 01/14/21 Unknown Rx ergocalciferol (vitamin D2) 1,250 1,250 mcg PO .weekly #4 cap 11/25/20 01/14/21 01/09/21 09:00 Rx mcg (50,000 unit) capsule venlafaxine 75 mg capsule,extended 75 mg PO DAILY #30 cap 12/25/20 01/14/21 Unknown Rx release 24 hr Depakote ER 500 mg PO BID 01/14/21 01/14/21 Unknown History Seroquel 150 mg PO BEDTIME 01/14/21 01/14/21 Unknown History clonazepam 0.5 mg PO TID 01/14/21 01/14/21 Unknown History omeprazole 20 mg PO BID 01/14/21 01/14/21 Unknown History topiramate 100 mg PO BEDTIME 01/14/21 01/14/21 Unknown History Allergies Allergy/AdvReac Type Severity Reaction Status Date / Time adhesive Allergy ALGY-Rash Verified 11/12/20 09:00 nitrofurantoin Allergy Unknown Verified 11/12/20 09:00 [From Macrobid] Penicillins Allergy Unknown Verified 11/12/20 09:00 BAND-AIDS Allergy Unknown Uncoded 11/12/20 09:00 TIDE DETERGENT Allergy Unknown Uncoded 11/12/20 09:00 PFSH NPU PFSH: Medical History Constipation H/O swallowed foreign body Hypothyroidism Major depressive disorder, recurrent severe without psychotic features Mental disability Post-traumatic stress disorder, chronic Psychiatric care Psychoses Surgical History H/O esophagogastroduodenoscopy (07/05/20) removal of FB History of cholecystectomy Social History Smoking and tobacco status: never smoked Second hand smoke exposure: No Alcohol intake: never Caregiver/support person: Yes Lives independently: No Household members: other Details: LIVES IN A RETIREMENT Housing: Assisted Living Facility Marital status: Single Current occupational status: disabled History of recent travel: No Current gender identity: Female Additional social history: Patient states that she grew up in [place]. She is currently living in [place] [facility] [place] and is under guardianship. She enjoys playing games and eating hamburgers. She is despondent that there is no place in [place] where she can get a hamburger and does not know how to make one on her own. Mental Status Exam MSE Comments: This is a 36-year-old overweight female who appears about her stated age in no acute distress. She is dressed in hospital scrubs. She is laying in bed on her stomach and did not roll over to make eye contact. psychomotor activity decreased. Speech is at a regular rate and rhythm, normal volume, good articulation, not pressured. Alert, oriented X3 Attention and concentration appears to be intact. Memory is intact Mood is depressed. Affect is dysphoric. Not see her face during the interview but she talked to me briefly in the hastings earlier. Thought process is logical and goal-directed. Thought content: Denies auditory and visual hallucinations. No delusions or paranoia are noted. No current suicidal ideation, and no homicidal ideation. Fund of knowledge is appears to be decreased. Insight and judgment appear to be fair. Impulse control is poor. Vitals/I&O/Wt Last Vital Signs Temp 97.9 F 01/15/21 06:00 Pulse 113 H 01/15/21 06:00 Resp 17 01/15/21 06:00 BP 125/78 01/15/21 06:00 Pulse Ox 99 01/15/21 06:00 01/14/21 01/14/21 01/15/21 14:59 22:59 06:59 Intake Total 1999 Balance 1999 Weight last 48 hrs Weight 108.862 kg Data NPU : 01/14/21 21:10 01/14/21 20:45 A&P Assessment and plan (1) Borderline personality disorder: Status: Chronic (2) Post-traumatic stress disorder, chronic: Status: Acute (3) Suicide attempt: Status: Acute Additional A&P Information This is a 36-year old [facility] resident with multiple hospital admissions for suicide attempts who is admitted for an overdose of Zyrtec. Plan: 1. Continue current medication except increase the Effexor to 150 mg. 2. Continue every 15 minute checks for safety. 3. Encourage individual, group and milieu therapies. 4. Encourage sober living treatment after discharge at the highest level of care to which she is willing to commit. 5. We will monitor for safety for herself in the community prior to discharge. Involuntary Hold Information 96 Hour Hold: 96 Hour Involuntary Admission: No 96 Hour Hold Ending Date: 08/19/19 96 Hour Hold Ending Time: 07:00 Attestations NPU Medical Necessity Statement*: Inpatient hospitalization is medically necessary and the clinically appropriate intervention at this time. We will initiate medications and make changes as indicated. She will be in the hospital for over 2 midnights. Likely length of stay 4-6 days Coding Level of Care Code Acute Stave Cutter for Lasha Turner Diagnoses Borderline personality disorder F60.3 Post-traumatic stress disorder, chronic F43.12 Suicide attempt T14.91XA
[2021-01-15] MEDS: levothyroxine 125 mcg Tablet PO (09:22)
[2021-01-15] MEDS: sennosides 8.6 mg Tablet PO (09:22)
[2021-01-15] MEDS: docusate sodium 100 mg Capsule PO (09:22)
[2021-01-15] MEDS: pantoprazole DR 40 mg Tablet PO (09:22)
[2021-01-15] MEDS: venlafaxine ER (24HR) 75 mg Capsule PO (09:22)
[2021-01-15] MEDS: divalproex ER 500 mg Tablet (24H) PO ×2 (09:22→17:25)
[2021-01-15] MEDS: CLONazepam 0.5 mg Tablet PO ×3 (09:22→21:02)
[2021-01-15 14:00] VITALS: BP 104/70; PULSE 86; RESP 16; TEMP 36.2; O2SAT 99
[2021-01-15 20:20] VITALS: BP 71/41; PULSE 98; RESP 17; TEMP 36.9; O2SAT 96
[2021-01-15] MEDS: topiramate 100 mg Tablet PO (21:02)
[2021-01-15] MEDS: quetiapine 100 mg Tablet 150 MG PO (21:02)
[2021-01-16 06:00] VITALS: BP 105/72; PULSE 109; RESP 18; TEMP 36.9; O2SAT 97
[2021-01-16] MEDS: venlafaxine ER (24HR) 75 mg Capsule 150 MG PO (09:51)
[2021-01-16] MEDS: divalproex ER 500 mg Tablet (24H) PO ×2 (09:51→17:21)
[2021-01-16] MEDS: CLONazepam 0.5 mg Tablet PO ×3 (09:51→21:31)
[2021-01-16] MEDS: sennosides 8.6 mg Tablet PO (09:51)
[2021-01-16] MEDS: pantoprazole DR 40 mg Tablet PO (09:52)
[2021-01-16] MEDS: docusate sodium 100 mg Capsule PO (09:52)
[2021-01-16] MEDS: levothyroxine 125 mcg Tablet PO (09:52)
--- NOTE | 2021-01-16 10:06 | W.PM.NPUPNS ---
Subjective NPU Subjective: Interval history: She again started the conversation by saying that she was not ready to go home. She says that she is still hearing voices telling her kill kill kill . She says that they want her to kill herself. She says that these voices have been better in the past but she forgets what medication she was given to help them be better. She still feels that she would be better off . She said it is because of the voices that she feels that way. She would like that medication increased. She evidently did not sleep well last night. Mental Status Exam MSE Comments: This is a 36-year-old overweight female who appears about her stated age in no acute distress. She is dressed in hospital scrubs. She approached the nurses station and saw me and said that she wanted to talk. psychomotor activity decreased. Speech is at a regular rate and rhythm, normal volume, good articulation, not pressured. Alert, oriented X3 Attention and concentration appears to be intact. Memory is intact Mood is depressed. Affect is dysphoric. Thought process is logical and goal-directed. Thought content: She reports auditory hallucinations telling her to kill herself. She denies visual hallucinations. No delusions or paranoia are noted. No current suicidal ideation but still wishes that she were . She denies homicidal ideation. Fund of knowledge is appears to be decreased. Insight and judgment appear to be fair. Impulse control is poor. Cognition: Patient Appearance: Disheveled/Poor Hygiene Level of Consciousness: Awake, Alert, Appropriate and Follows Commands Patient Cognition Impaired: No Ability to Follow Directions: Fair Patient Orientation (long list): Person, Place and Time Comprehension Ability: Moderate Impairment Hallucination Type: Auditory Delusion Description: Not Present Thought Process: Logical Affect: Affect Description: Appropriate and Anxious Behavior: Patient Behavior: Appropriate and Cooperative Speech Pattern: Appropriate and Clear Vitals/I&O/Wt Last Vital Signs Temp 98.4 F 01/16/21 06:00 Pulse 109 H 01/16/21 06:00 Resp 18 01/16/21 06:00 BP 105/72 01/16/21 06:00 Pulse Ox 97 01/16/21 06:00 Weight last 48 hrs Weight 108.862 kg Data NPU : 01/14/21 21:10 01/14/21 20:45 A&P Assessment and plan (1) Borderline personality disorder: Status: Chronic (2) Post-traumatic stress disorder, chronic: Status: Acute (3) Suicide attempt: Status: Acute Additional A&P Information This is a 36-year old [facility] resident with multiple hospital admissions for suicide attempts who is admitted for an overdose of Zyrtec. Plan: 1. Continue current medication except increased Effexor to 150 mg. Will consider increasing Seroquel tomorrow. 2. Continue every 15 minute checks for safety. 3. Encourage individual, group and milieu therapies. 4. Encourage sober living treatment after discharge at the highest level of care to which she is willing to commit. 5. We will monitor for safety for herself in the community prior to discharge. Involuntary Hold Information 96 Hour Hold: 96 Hour Involuntary Admission: No 96 Hour Hold Ending Date: 08/19/19 96 Hour Hold Ending Time: 07:00 Attestations NPU Medical Necessity Statement*: Inpatient hospitalization is medically necessary and the clinically appropriate intervention at this time. We will initiate medications and make changes as indicated. Coding Level of Care Code Acute Boiler Cleaner for Lasha Turner Diagnoses Borderline personality disorder F60.3 Post-traumatic stress disorder, chronic F43.12 Suicide attempt T14.91XA
[2021-01-16 14:00] VITALS: BP 121/74; PULSE 98; RESP 16; TEMP 37; O2SAT 96
[2021-01-16 20:35] VITALS: BP 101/55; PULSE 101; RESP 18; TEMP 37; O2SAT 95
[2021-01-16] MEDS: quetiapine 100 mg Tablet 150 MG PO (21:31)
[2021-01-16] MEDS: topiramate 100 mg Tablet PO (21:31)
[2021-01-17 06:00] VITALS: BP 111/68; PULSE 112; RESP 17; TEMP 37; O2SAT 97; BMI 42.5
--- NOTE | 2021-01-17 06:39 | W.PM.NPUPNS ---
Subjective NPU Subjective: Interval history: She was found in the day room watching television at 6:20 AM. She says that is very unusual for her. Normally she is still asleep. She says that she slept well last night however, she had a dream of hers killing herself. She still has suicidal ideations. She thinks that she might be ready to go home on Monday. She does not have any side effects from her medications. Mental Status Exam MSE Comments: This is a 36-year-old overweight female who appears about her stated age in no acute distress. She is dressed in hospital scrubs. psychomotor activity decreased. Speech is at a regular rate and rhythm, normal volume, good articulation, not pressured. Alert, oriented X3 Attention and concentration appears to be intact. Memory is intact Mood is depressed. Affect is dysphoric. Thought process is logical and goal-directed. Thought content: She reports auditory hallucinations telling her to kill herself. She denies visual hallucinations. No delusions or paranoia are noted. Continues to have episodic suicidal ideation and wishes for . She denies homicidal ideation. Fund of knowledge is appears to be decreased. Insight and judgment appear to be fair. Impulse control is poor. Cognition: Patient Appearance: Disheveled/Poor Hygiene Level of Consciousness: Awake, Alert, Appropriate and Follows Commands Patient Cognition Impaired: No Ability to Follow Directions: Fair Patient Orientation (long list): Person, Place and Time Comprehension Ability: Moderate Impairment Hallucination Type: Auditory Delusion Description: Not Present Thought Process: Logical Affect: Affect Description: Appropriate Behavior: Patient Behavior: Appropriate Speech Pattern: Appropriate and Clear Vitals/I&O/Wt Last Vital Signs Temp 98.6 F 01/17/21 06:00 Pulse 112 H 01/17/21 06:00 Resp 17 01/17/21 06:00 BP 111/68 01/17/21 06:00 Pulse Ox 97 01/17/21 06:00 Weight last 48 hrs Weight 108.862 kg Data NPU : 01/14/21 21:10 01/14/21 20:45 A&P Assessment and plan (1) Borderline personality disorder: Status: Chronic (2) Post-traumatic stress disorder, chronic: Status: Acute (3) Suicide attempt: Status: Acute Additional A&P Information This is a 36-year old [facility] resident with multiple hospital admissions for suicide attempts who is admitted for an overdose of Zyrtec. Plan: 1. Continue current medication except increased Effexor to 150 mg. She slept well last night so will continue Seroquel unchanged. 2. Continue every 15 minute checks for safety. 3. Encourage individual, group and milieu therapies. 4. Encourage sober living treatment after discharge at the highest level of care to which she is willing to commit. 5. We will monitor for safety for herself in the community prior to discharge. Involuntary Hold Information 96 Hour Hold: 96 Hour Involuntary Admission: No 96 Hour Hold Ending Date: 08/19/19 96 Hour Hold Ending Time: 07:00 Attestations NPU Medical Necessity Statement*: Inpatient hospitalization is medically necessary and the clinically appropriate intervention at this time. We will initiate medications and make changes as indicated. Coding Level of Care Code Acute Historical Society Director for Lasha Turner Diagnoses Borderline personality disorder F60.3 Post-traumatic stress disorder, chronic F43.12 Suicide attempt T14.91XA
[2021-01-17] MEDS: levothyroxine 125 mcg Tablet PO (09:25)
[2021-01-17] MEDS: sennosides 8.6 mg Tablet PO (09:25)
[2021-01-17] MEDS: venlafaxine ER (24HR) 75 mg Capsule 150 MG PO (09:25)
[2021-01-17] MEDS: divalproex ER 500 mg Tablet (24H) PO ×2 (09:25→17:32)
[2021-01-17] MEDS: pantoprazole DR 40 mg Tablet PO (09:25)
[2021-01-17] MEDS: docusate sodium 100 mg Capsule PO (09:25)
[2021-01-17] MEDS: CLONazepam 0.5 mg Tablet PO ×2 (09:25→20:34)
[2021-01-17] MEDS: lanolin oint 7 gm 1 APPLIC TOPICAL (12:06)
[2021-01-17 14:00] VITALS: BP 121/68; PULSE 92; RESP 17; TEMP 37; O2SAT 97
--- NOTE | 2021-01-17 16:11 | PC.NURSE ---
Patient refused 1500 Klonopin. Patient in bed at that time but awake. Would not give reason as to why she was refusing med. Patient was compliant with all morning meds. Did receive Lanolin cream for nipples. Nipples are noted to be red and irritated from rubbing on shirt. Cannot use bandaid d/t allergic to adhsives and denied being able to have someone bring her a bra. Cream helpful.
[2021-01-17] MEDS: quetiapine 100 mg Tablet 150 MG PO (20:34)
[2021-01-17] MEDS: topiramate 100 mg Tablet PO (20:34)
[2021-01-17 21:31] VITALS: BP 112/77; PULSE 113; RESP 18; TEMP 36.6; O2SAT 96
[2021-01-18 06:00] VITALS: BP 120/82; PULSE 105; RESP 17; TEMP 37.1; O2SAT 96
[2021-01-18] MEDS: CLONazepam 0.5 mg Tablet PO ×3 (08:43→21:01)
[2021-01-18] MEDS: venlafaxine ER (24HR) 75 mg Capsule 150 MG PO (08:43)
[2021-01-18] MEDS: divalproex ER 500 mg Tablet (24H) PO ×2 (08:44→17:54)
[2021-01-18] MEDS: sennosides 8.6 mg Tablet PO (08:44)
[2021-01-18] MEDS: levothyroxine 125 mcg Tablet PO (08:45)
[2021-01-18] MEDS: pantoprazole DR 40 mg Tablet PO (08:45)
[2021-01-18] MEDS: docusate sodium 100 mg Capsule PO (08:45)
--- NOTE | 2021-01-18 10:34 | P.NPUPN_ITS ---
Subjective NPU Subjective: Interval history: She says that she is still having suicidal thoughts. She is still hearing voices. She is still irritable. She says she thought about kicking the ass of 2 guys. One of the patient's told her to do something yesterday and made her angry and got into an argument. He evidently called her name and she did not like that and it hurt her feelings. Mental Status Exam MSE Comments: This is a 36-year-old overweight female who appears about her stated age in no acute distress. She is dressed in hospital scrubs. psychomotor activity decreased. Speech is at a regular rate and rhythm, normal volume, good articulation, not pressured. Alert, oriented X3 Attention and concentration appears to be intact. Memory is intact Mood is depressed. Affect is dysphoric. Thought process is logical and goal-directed. Thought content: She reports auditory hallucinations telling her to kill herself. She denies visual hallucinations. No delusions or paranoia are noted. Continues to have episodic suicidal ideation and wishes for . She denies homicidal ideation. Fund of knowledge is appears to be decreased. Insight and judgment appear to be fair. Impulse control is poor. Cognition: Patient Appearance: Disheveled/Poor Hygiene Level of Consciousness: Awake, Alert, Appropriate and Follows Commands Patient Cognition Impaired: No Ability to Follow Directions: Fair Patient Orientation (long list): Person, Place and Time Comprehension Ability: Moderate Impairment Hallucination Type: None Delusion Description: Not Present Thought Process: Flight of Ideas Affect: Affect Description: Appropriate Behavior: Patient Behavior: Appropriate Speech Pattern: Appropriate Vitals/I&O/Wt Last Vital Signs Temp 98.7 F 01/18/21 06:00 Pulse 105 H 01/18/21 06:00 Resp 17 01/18/21 06:00 BP 120/82 01/18/21 06:00 Pulse Ox 96 01/18/21 06:00 Weight last 48 hrs Weight 108.862 kg Data NPU : 01/14/21 21:10 01/14/21 20:45 A&P Assessment and plan (1) Borderline personality disorder: Status: Chronic (2) Post-traumatic stress disorder, chronic: Status: Acute (3) Suicide attempt: Status: Acute Additional A&P Information This is a 36-year old [facility] resident with multiple hospital admissions for suicide attempts who is admitted for an overdose of Zyrtec. Plan: 1. Continue current medication except increased Effexor to 150 mg. She did not sleep well last night and wanted the Seroquel increased to 200 mg. 2. Continue every 15 minute checks for safety. 3. Encourage individual, group and milieu therapies. 4. Encourage sober living treatment after discharge at the highest level of care to which she is willing to commit. 5. We will monitor for safety for herself in the community prior to discharge. Involuntary Hold Information 96 Hour Hold: 96 Hour Involuntary Admission: No 96 Hour Hold Ending Date: 08/19/19 96 Hour Hold Ending Time: 07:00 Attestations NPU Medical Necessity Statement*: Inpatient hospitalization is medically necessary and the clinically appropriate intervention at this time. We will initiate medications and make changes as indicated. Coding Level of Care Code Acute Supervisor Winding Department for Lasha Turner Diagnoses Borderline personality disorder F60.3 Post-traumatic stress disorder, chronic F43.12 Suicide attempt T14.91XA
[2021-01-18 14:00] VITALS: BP 100/88; PULSE 85; RESP 16; TEMP 36.9; O2SAT 98
--- NOTE | 2021-01-18 14:01 | NPU.GN ---
[facility] Group Topic:Coping Mechanisms General Mood of Group: Shelby did attend and participate in group today. Her hygiene was ok.
[2021-01-18] MEDS: quetiapine 100 mg Tablet 200 MG PO (21:01)
[2021-01-18] MEDS: topiramate 100 mg Tablet PO (21:01)
[2021-01-18 21:03] VITALS: RESP 16
[2021-01-19 06:00] VITALS: BP 99/72; PULSE 104; RESP 16; O2SAT 97
--- NOTE | 2021-01-19 08:33 | P.NPUPN_ITS ---
Subjective NPU Subjective: Interval history: She says that she is still having suicidal thoughts. She is still hearing voices. She is still irritable. She says she had an agruement with another patient last night. She still does not feel that it is safe for her to go home. Mental Status Exam MSE Comments: This is a 36-year-old overweight female who appears about her stated age in no acute distress. She is dressed in hospital scrubs. psychomotor activity decreased. Speech is at a regular rate and rhythm, normal volume, good articulation, not pressured. Alert, oriented X3 Attention and concentration appears to be intact. Memory is intact Mood is depressed. Affect is dysphoric. Thought process is logical and goal-directed. Thought content: She reports auditory hallucinations telling her to kill herself. She denies visual hallucinations. No delusions or paranoia are noted. Continues to have episodic suicidal ideation and wishes for . She denies homicidal ideation. Fund of knowledge is appears to be decreased. Insight and judgment appear to be fair. Impulse control is poor. Cognition: Patient Appearance: Disheveled/Poor Hygiene Level of Consciousness: Awake, Alert, Appropriate and Follows Commands Patient Cognition Impaired: No Ability to Follow Directions: Fair Patient Orientation (long list): Person, Place and Time Comprehension Ability: Moderate Impairment Hallucination Type: None Delusion Description: Not Present Thought Process: Flight of Ideas Affect: Affect Description: Calm Behavior: Patient Behavior: Appropriate and Cooperative Speech Pattern: Appropriate Vitals/I&O/Wt Last Vital Signs Temp 98.5 F 01/18/21 14:00 Pulse 104 H 01/19/21 06:00 Resp 16 01/19/21 06:00 BP 99/72 01/19/21 06:00 Pulse Ox 97 01/19/21 06:00 Data NPU : 01/14/21 21:10 01/14/21 20:45 A&P Assessment and plan (1) Borderline personality disorder: Status: Chronic (2) Post-traumatic stress disorder, chronic: Status: Acute (3) Suicide attempt: Status: Acute Additional A&P Information This is a 36-year old [facility] resident with multiple hospital admissions for suicide attempts who is admitted for an overdose of Zyrtec. Plan: 1. Continue current medication except increased Effexor to 150 mg and Seroquel increased to 200 mg. 2. Continue every 15 minute checks for safety. 3. Encourage individual, group and milieu therapies. 4. Encourage sober living treatment after discharge at the highest level of care to which she is willing to commit. 5. We will monitor for safety for herself in the community prior to discharge. Involuntary Hold Information 96 Hour Hold: 96 Hour Involuntary Admission: No 96 Hour Hold Ending Date: 08/19/19 96 Hour Hold Ending Time: 07:00 Attestations NPU Medical Necessity Statement*: Inpatient hospitalization is medically necessary and the clinically appropriate intervention at this time. We will initiate medications and make changes as indicated. Coding Level of Care Code Acute Art Director for g Fwd Diagnoses Borderline personality disorder F60.3 Post-traumatic stress disorder, chronic F43.12 Suicide attempt T14.91XA
[2021-01-19] MEDS: venlafaxine ER (24HR) 75 mg Capsule 150 MG PO (11:09)
[2021-01-19] MEDS: divalproex ER 500 mg Tablet (24H) PO ×2 (11:09→18:30)
[2021-01-19] MEDS: pantoprazole DR 40 mg Tablet PO (11:09)
[2021-01-19] MEDS: CLONazepam 0.5 mg Tablet PO ×3 (11:09→21:25)
[2021-01-19] MEDS: levothyroxine 125 mcg Tablet PO (11:10)
[2021-01-19] MEDS: docusate sodium 100 mg Capsule PO (11:10)
[2021-01-19] MEDS: sennosides 8.6 mg Tablet PO (11:10)
--- NOTE | 2021-01-19 13:17 | NPU.GN ---
[facility] Group Topic:Depression Bingo General Mood of Group: Shelby did not attend group today.
[2021-01-19 14:00] VITALS: BP 110/74; PULSE 77; RESP 16; TEMP 36.3; O2SAT 98
[2021-01-19] MEDS: quetiapine 100 mg Tablet 200 MG PO (21:24)
[2021-01-19] MEDS: topiramate 100 mg Tablet PO (21:25)
[2021-01-19 22:00] VITALS: RESP 18
[2021-01-20 06:00] VITALS: BP 116/87; PULSE 69; RESP 15; O2SAT 97
--- NOTE | 2021-01-20 08:38 | P.NPUPN_ITS ---
Subjective NPU Subjective: Interval history: She says that she is still having suicidal thoughts. She is still hearing voices. She is still irritable. She says that she is a little better today. She still does not feel that it is safe for her to go home. Is optimistic that she will be ready to go home on Monday. Mental Status Exam MSE Comments: This is a 36-year-old overweight female who appears about her stated age in no acute distress. She is dressed in hospital scrubs. psychomotor activity decreased. Speech is at a regular rate and rhythm, normal volume, good articulation, not pressured. Alert, oriented X3 Attention and concentration appears to be intact. Memory is intact Mood is depressed. Affect is dysphoric. Thought process is logical and goal-directed. Thought content: She reports auditory hallucinations telling her to kill herself. She denies visual hallucinations. No delusions or paranoia are noted. Continues to have episodic suicidal ideation and wishes for . She denies homicidal ideation. Fund of knowledge is appears to be decreased. Insight and judgment appear to be fair. Impulse control is poor. Cognition: Patient Appearance: Disheveled/Poor Hygiene Level of Consciousness: Awake, Alert, Appropriate and Follows Commands Patient Cognition Impaired: No Ability to Follow Directions: Fair Patient Orientation (long list): Person, Place and Time Comprehension Ability: Moderate Impairment Hallucination Type: None Delusion Description: Not Present Thought Process: Flight of Ideas Affect: Affect Description: Calm Behavior: Patient Behavior: Appropriate and Cooperative Speech Pattern: Appropriate Vitals/I&O/Wt Last Vital Signs Temp 97.4 F L 01/19/21 14:00 Pulse 69 01/20/21 06:00 Resp 15 01/20/21 06:00 BP 116/87 01/20/21 06:00 Pulse Ox 97 01/20/21 06:00 Data NPU : 01/14/21 21:10 01/14/21 20:45 A&P Assessment and plan (1) Borderline personality disorder: Status: Chronic (2) Post-traumatic stress disorder, chronic: Status: Acute (3) Suicide attempt: Status: Acute Additional A&P Information This is a 36-year old [facility] resident with multiple hospital admissions for suicide attempts who is admitted for an overdose of Zyrtec. Plan: 1. Continue current medication except increased Effexor to 150 mg and Seroquel increased to 200 mg. 2. Continue every 15 minute checks for safety. 3. Encourage individual, group and milieu therapies. 4. Encourage sober living treatment after discharge at the highest level of care to which she is willing to commit. 5. We will monitor for safety for herself in the community prior to discharge. Involuntary Hold Information 96 Hour Hold: 96 Hour Involuntary Admission: No 96 Hour Hold Ending Date: 08/19/19 96 Hour Hold Ending Time: 07:00 Attestations NPU Medical Necessity Statement*: Inpatient hospitalization is medically necessary and the clinically appropriate intervention at this time. We will initiate medications and make changes as indicated. Coding Level of Care Code Acute Dairy Consultant for Lasha Cruzd Diagnoses Borderline personality disorder F60.3 Post-traumatic stress disorder, chronic F43.12 Suicide attempt T14.91XA
[2021-01-20] MEDS: sennosides 8.6 mg Tablet PO (08:43)
[2021-01-20] MEDS: divalproex ER 500 mg Tablet (24H) PO ×2 (08:43→17:52)
[2021-01-20] MEDS: pantoprazole DR 40 mg Tablet PO (08:44)
[2021-01-20] MEDS: levothyroxine 125 mcg Tablet PO (08:44)
[2021-01-20] MEDS: venlafaxine ER (24HR) 75 mg Capsule 150 MG PO (08:44)
[2021-01-20] MEDS: CLONazepam 0.5 mg Tablet PO ×3 (08:44→21:07)
[2021-01-20] MEDS: docusate sodium 100 mg Capsule PO (08:44)
[2021-01-20] MEDS: hyDROXYzine 25 mg Capsule 50 MG PO (08:44)
--- NOTE | 2021-01-20 13:15 | NPU.GN ---
[facility] Group Topic:Group Topic:Whine Barrel Activity General Mood of Group: Shelby did not attend group this morning she was social with others and participated in group.
[2021-01-20 13:52] VITALS: BP 110/70; PULSE 69; RESP 16; TEMP 37.1; O2SAT 98
[2021-01-20] MEDS: quetiapine 100 mg Tablet 200 MG PO (21:06)
[2021-01-20] MEDS: topiramate 100 mg Tablet PO (21:06)
[2021-01-20 22:00] VITALS: RESP 16
[2021-01-21 06:00] VITALS: RESP 17
[2021-01-21] MEDS: levothyroxine 125 mcg Tablet PO (09:04)
[2021-01-21] MEDS: sennosides 8.6 mg Tablet PO (09:04)
[2021-01-21] MEDS: divalproex ER 500 mg Tablet (24H) PO (09:04)
[2021-01-21] MEDS: pantoprazole DR 40 mg Tablet PO (09:04)
[2021-01-21] MEDS: docusate sodium 100 mg Capsule PO (09:04)
[2021-01-21] MEDS: venlafaxine ER (24HR) 75 mg Capsule 150 MG PO (09:04)
[2021-01-21] MEDS: CLONazepam 0.5 mg Tablet PO (09:05)
--- NOTE | 2021-01-21 11:23 | P.NPUDS_ITS ---
Diagnoses at Discharge Discharge Diagnosis (1) Borderline personality disorder: Status: Chronic (2) Post-traumatic stress disorder, chronic: Status: Acute (3) Suicide attempt: Status: Acute Reason for Visit Reason for Visit: Overdose\SI Brief History: History of Present Illness Shelby Cherry is a 36 year old female female who was brought to the emergency department by ambulance with the following report: HPI narrative: HPI: [36]yo patient w/ hx of depression BIBA for acute suicidal attempt at 5:40pm. Patient took 60 tablets of zytec 10mg. No other ingestions today. On arrival, the patient is AAOx3 and cooperative with my evaluation. No focal complaints of chest pain, shortness of breath, palpitations, N/V, focal GI/ complaints. No complaints of hallucinations. She is being treated at [facility] and her last visit is as follows: Diagnosis (1) Mild intellectual disabilities: Status: Chronic (2) Post-traumatic stress disorder, chronic: Status: Acute (3) Borderline personality disorder: Status: Chronic Subjective Subjective: Shelby is a 35-year-old female, who presents to [facility] with her caregiver for medication management and follow up for her PTSD, borderline personality disorder, and mild intellectual disability. She was last seen September 29, 2020. Shelby is doing well today. She tells me her mood is good. Her staff states she has been doing well for a while. She has had no ER visits in a month's time which is significant. Shelby has been doing well at [facility]. Her staff states that she has walked away from 3 incidents that could have escalated. She tells me she has a new boyfriend. Her roommate has been gone from the home for greater than a month after having surgery. No specific changes have occurred outside of what has been shown. She has had a credit collections analyst working in the home but a summary of recommendations have not been received as of yet. She is scheduled to go to [facility] for a psychiatric assessment next week. She reports no changes in her physical health. She has not been exposed to Covid and has been attending [facility] on a daily basis. No concerns from her caregiver voiced today. Shelby and her caregiver report the following: Mood: Mood is good/happy Sleep: Sleeping well Appetite: Adequate Level of energy: Adequate Level of anxiety: None reported Ability to do ADLs: Independent Frightening/uncomfortable/or racing thoughts: Denies Thoughts of , suicide, or violence towards others: Denies Hearing voices or seeing hallucinations/visions: Denies ROS Neurological: Seizure disorder Objective Objective: Alert and oriented to person place and time. Patient describes mood as good. Affect is euthymic, happy, responsive. Speech is normal rate, rhythm, and volume. Thought process is logical and organized. No hallucinatory activity noted. Currently denies thoughts of harming self and others. Judgment and insight are poor related to diagnosis and history. Memory is intact for recent and remote events. Attention and concentration are within normal limits. Casually dressed and well-groomed. Behavior is appropriate. Makes direct eye contact. Fund of knowledge is estimated to be below average. Gait is within normal limits. Assesment & Plan Assessment: Shelby is doing well today Plan: Continue Effexor XR 75 mg daily Continue Seroquel 150 mg at bedtime Continue Topamax 100 mg at bedtime Continue Depakote DR 500 mg twice per day Continue clonazepam 0.5 mg 3 times per day Continue Haldol 5 mg daily as needed for severe agitation Prescription refills are sent to [facility] pharmacy Follow-up in 2 months. Staff and Shelby instructed if symptoms worsen or the need to be seen sooner to call the clinic for an earlier appointment. Dr. Kendall consultive in April with the following report: A psychiatric consult was requested to verify whether safe for discharge. Of note Shelby is known quite well to this copywriter from numerous consults and inpatient stays all surrounding this ingestion of tiny objects and reports of hearing voices and suicidality. After multiple inpatient hospitalizations we have come to understand that Shelby says this however with consultation with her staff there were no behavior changes that show a difference between time she is endorsing these issues and swallowing things when she is not. She was just seen days ago evaluated and discharged and her presentation today is no different. She endorses feeling suicidal, hearing voices and needing her medications changed. When she goes to her outpatient provider she does not ask about medication changes and is not using the outpatient process to take care of her situation. There was nothing new or symptomatic about her presentation there were no signs of internal preoccupation or signs that would indicate that this presentation is any different than any of the voluminous previous ones. We discussed various coping studies and the importance of her identifying activities and options to fill the void and boredom that she has being stuck in her situation with limited social outlets and limited interactions with diverse or different individuals. She was last admitted in September 2019 with the following discharge summary: Diagnoses at Discharge Discharge Diagnosis (1) Suicidal ideation: Status: Resolved (2) H/O swallowed foreign body: Status: Resolved (3) Hypothyroidism: Status: Chronic (4) Borderline personality disorder: Status: Chronic (5) Mild intellectual disabilities: Status: Chronic (6) Major depressive disorder, recurrent severe without psychotic features: Status: Ruled-out Reason for Visit Reason for Visit: swallowed unknown object Brief History: Shelby Cherry is a 34 year old female with primary diagnoses of cognitive deficit and borderline personality disorder. She again presents to the emergency room for at least the third time in the past year after having swallowed a small object out of frustration with her living condition. In addition to her cognitive deficit, her verbal communication skills are limited. By her report, she is unhappy with her current living situation. She feels like they treat her badly though she denies any actual physical abuse. Her presentation today is almost identical to her last. She says that she is hearing voices that tell her to kill herself. However she is unable to define those voices. She cannot say whether there is one or many. She does not recognize the voice. She has no intent or plan to kill herself. However she does confirm the presence of persistent despondent and unhappiness with her living situation. She reports feelings of hopelessness and worthlessness. She is sad and blue on a daily basis. Laboratory Tests 09/01/19 09/22/19 09/22/19 18:35 21:21 21:35 TSH 3.83 Valproic Acid 27.7 L 19.8 L U Benzodiazepines Scrn Positive H ER physician note: Shelby is a 34-year-old female who comes in after she swallowed a plastic piece from a toy game that is less than a size and diameter. Patient says she did this in an effort to hurt herself. She says that no one cares about her and that is why she feels depressed. Patient has history of previous suicide attempts. Patient is very quiet, seems simple and does not offer much in the way of details other than asking for herself to be admitted to the neuropsychiatric unit. Her first front ventilator who is here with her confirms these Hospital Course Hospital Course Admission plan: Patient will be admitted to the adult psychiatric unit and entered into the full array of individual and group therapies as part of that unit protocol. They will be provided 24-hour access to trained psychiatric nursing care and monitoring. Potential benefits and side effects of medications were discussed as well as the time course of expected response to medication changes. This is a recurrent pattern and has resolved with psychosocial interventions in the past. It is reasonable to expect that this problem will resolve with similar intervention. However it is noted that her Depakote level is low and she has a history of seizure disorder. She is on relatively high dose Abilify and other than her self-reported presence of auditory hallucinations without any objective signs or documented history of psychosis, the need for such a high dose may place her at risk for side effects without significant benefit. It is also noted that she meets criteria still for clinical depression even though she has been on fluoxetine for nearly a year. Additionally, her urine drug screen has been positive for benzodiazepines on each presentation and there is no indication of that benzodiazepines are being prescribed to her. Plan is to reduce Abilify to 10 mg at bedtime. Depakote will be increased to 1000 mg at bedtime. Fluoxetine will be replaced with Effexor XR 75 mg daily. New aripiprazole 10 mg Tablet 10 mg PO DAILY Qty: 30 RF: 5 venlafaxine 37.5 mg Capsule,Extended Release 24hr 37.5 mg PO DAILY Qty: 30 RF: 5 Continued acetaminophen 325 mg capsule 650 mg PO Q6H PRN (Reason: fever of 100.4 or greater and/or pain) Qty: 120 RF: 2 dextromethorphan-guaifenesin [Guaiasorb DM] 10-100 mg/5 mL liquid 10 ml PO Q6H PRN (Reason: cough) Qty: 120 RF: 2 L norgest/e.estradiol-e.estrad [Camrese] 0.15 mg-30 mcg (84)/10 mcg (7) tablets,dose pack,3 month 1 tab PO DAILY RF: 0 Depakote ER 250 mg tablet extended release 24 hr 500 mg PO BEDTIME 30 Days Qty: 30 RF: 1 prazosin 1 mg capsule 2 mg PO DAILY Qty: 60 RF: 1 topiramate 100 mg tablet 100 mg PO BEDTIME 30 Days Qty: 30 RF: 1 trazodone 50 mg tablet 50 mg PO BEDTIME PRN (Reason: Sleep) 30 Days Qty: 30 RF: 1 polyethylene glycol 3350 [Miralax] 17 gram/dose powder 17 gm PO DAILY PRN (Reason: constipation) Qty: 238 RF: 2 L norgest/e.estradiol-e.estrad [Camrese] 0.15 mg-30 mcg (84)/10 mcg (7) tablets,dose pack,3 month 1 tab PO DAILY 30 Days Qty: 30 RF: 1 levothyroxine 100 mcg capsule 100 mcg PO DAILY 30 Days Qty: 30 RF: 1 She was admitted to the neuropsychiatry unit for definitive treatment of these issues. She was found in bed at 1020 in the morning. She was laying on her stomach and did not rollover to make eye contact. The first thing she said was that she did not feel like she was ready to go home. She had told the nurse earlier that she wanted to go home. She said that she was still depressed and suicidal. She initially said that nothing had happened to cause her to be suicidal. She has been suicidal for years. She then said that yesterday was her birthday and it is also the anniversary of her mother's . She said that probably did have something to do with her suicide attempt. She says that she hears voices telling her to kill herself. She says they have been somewhat worse lately. She has been hearing that voice for years also. She says that she has been sleeping well. She did wants her antidepressant increased. Hospital Course Hospital Course She slowly acclimated to the individual, group and milieu therapy provided. This hospitalization went the way her hospitalizations go when she is admitted. For several days she will talk about depression and hallucinations, and usually with med changes or not in several days she will suggest she is ready to go home and will get very frustrated we will discharge her when she says she is ready. During this hospitalization her Effexor XR was increased to 150 mg daily and her Seroquel was increased to 200 mg nightly. During the hospitalization, patient had routine laboratory studies which were within normal limits except for few outliers. Additionally there was a general medical evaluation which was also within normal limits and revealed no new acute processes. Discharge Summary: At the time of discharge, she denied psychosis or lethality. Mood and anxiety were well managed. Patient endorsed a plan to follow-up with the aftercare recommendations of the treatment team. Patient was evaluated and deemed to be absent credible lethality, and had achieved the maximum benefit from an inpatient hospitalization, so was discharged. Involuntary Hold Information 96 Hour Hold: 96 Hour Involuntary Admission: No 96 Hour Hold Ending Date: 08/19/19 96 Hour Hold Ending Time: 07:00 Mental Status Exam MSE Comments: This is a well-nourished, well-developed, white female, with adequate dress, grooming, and limited eye contact. No abnormal movements except for mild psychomotor retardation. Cooperative with exam in no acute distress. Speech was decreased rate and volume. Mood described as pretty good, affect slightly subdued. Thought process, linear. Thought content: patient denied suicidal or homicidal ideation, there were no delusions reported or noted, patient denied auditory or visual hallucinations. Attention, concentration appear intact and memory appeared reliable but none were formally tested. She is Alert and oriented times three. Insight and judgment are limited, impulse control is limited and intellectual ability is impaired. Discharge Data Vitals: Last Vital Signs Temp 98.7 F 01/20/21 13:52 Pulse 69 01/20/21 13:52 Resp 17 01/21/21 06:00 BP 110/70 01/20/21 13:52 Pulse Ox 98 01/20/21 13:52 Discharge Plan Discharge Patient Disposition: Home Condition: Stable Prescriptions: New venlafaxine 75 mg Capsule,Extended Release 24hr 150 mg PO DAILY 30 Days Qty: 30 RF: 1 quetiapine 100 mg Tablet 200 mg PO BEDTIME 30 Days Qty: 60 RF: 1 Continued haloperidol 5 mg tablet 5 mg PO DAILY PRN (Reason: severe agitation) Qty: 30 RF: 1 polyethylene glycol 3350 [Miralax] 17 gram/dose powder 17 gm PO DAILY PRN (Reason: constipation) Qty: 238 RF: 2 acetaminophen 325 mg capsule 650 mg PO Q6H PRN (Reason: fever of 100.4 or greater and/or pain) Qty: 120 RF : 2 ergocalciferol (vitamin D2) 1,250 mcg (50,000 unit) capsule 1,250 mcg PO .weekly Qty: 4 RF: 2 dextromethorphan-guaifenesin [Safe Tussin DM] 10-100 mg/5 mL liquid 10 ml PO Q6H PRN (Reason: Cough) RF: 0 levothyroxine 125 mcg tablet 125 mcg PO DAILY RF: 0 clonazepam 0.5 mg tablet 0.5 mg PO TID RF: 0 Depakote ER 500 mg tablet extended release 24 hr 500 mg PO BID RF: 0 omeprazole 20 mg capsule,delayed release(DR/EC) 20 mg PO BID RF: 0 topiramate 100 mg tablet 100 mg PO BEDTIME RF: 0 hydroxyzine HCl 50 mg Tablet 50 mg PO TID PRN (Reason: Anxiety) RF: 0 sennosides [Senna Laxative] 8.6 mg tablet 8.6 mg PO DAILY RF: 0 docusate sodium [Colace] 100 mg capsule 100 mg PO DAILY RF: 0 Discontinued venlafaxine 75 mg capsule,extended release 24hr 75 mg PO DAILY Qty: 30 RF: 1 quetiapine [Seroquel] 100 mg tablet 150 mg PO BEDTIME RF: 0 Discharge Orders: Discharge Order (Routine); Ordered 01/21/21 Ordered By: Rome Kendall Referrals: Latricia Sanders PMHNP [Staff Physician] - 01/25/21 9:30 am (Medications appointment with Latricia Sanders on 01/25/21 @ 9:30am. ) Ольга Quarles FNP [Primary Care Provider] - Discharge Diet: Regular Discharge Activity: Resume usual activity Patient Instructions: Opioid Safety Discharge Attestations NPU Time Spent in Discharge Care*: less than 30 min Specific Discharge Activities: Specific discharge activities: educating patient, discussing with pillowcase turner/social workers/dc planners, documenting/other paperwork and evaluating patient/reviewing data Coding Level of Care Code Acute [facility] DC note Diagnoses Borderline personality disorder F60.3 Post-traumatic stress disorder, chronic F43.12 Suicide attempt T14.91XA
[2021-01-21 11:47] VITALS: BP 110/70; PULSE 69; RESP 17; TEMP 37.1; O2SAT 98
== END 2021-01-21 13:14 | disposition home or self-care (01) | DRG 918 ==
LOC: ER 18:52 → NP 21:56
PROVIDERS: Emergency Medicine; Admitting Provider Psychiatry & Neurology Psychiatry; Emergency Provider Emergency Medicine; PCP Nurse Practitioner Family; Visit Provider Psychiatry & Neurology Psychiatry
DX: T45.0X2A Poisoning by antiallergic and antiemetic drugs, intentional self-harm, initial encounter (principal); R45.851 Suicidal ideations; F32.A Depression, unspecified; E03.9 Hypothyroidism, unspecified; F43.12 Post-traumatic stress disorder, chronic; F70 Mild intellectual disabilities; F60.3 Borderline personality disorder
CPT/HCPCS: 80053; 80306; 80307; 81025; 85025; 93005; 96360; 96361; 97150; 97165; 99285; J7030

== ENCOUNTER → 2021-01-25 09:15 | Outpatient (BNVA) | payer MEDICAID, SELFPAY | PROVIDERS: PCP Nurse Practitioner Family; Visit Provider Nurse Practitioner | DX: F43.12 Post-traumatic stress disorder, chronic (principal); F70 Mild intellectual disabilities; F60.3 Borderline personality disorder | CPT/HCPCS: 99214 ==

== ENCOUNTER 2021-01-25 16:26 | Emergency (ER) | payer MEDICAID, SELFPAY ==
--- NOTE | 2021-01-25 16:30 | XRR_ITS ---
PROCEDURE INFORMATION: Exam: XR Abdomen Exam date and time: 01/25/2021 4:30 PM Age: 36 years old Clinical indication: Abdominal pain; Prior surgery; Surgery type: Gb; Patient HX: Swalled tack today, abd pain; Additional info: Swallowed fb TECHNIQUE: Imaging protocol: XR of the abdomen. Views: Frontal supine view of the abdomen. 1 View. COMPARISON: CR XR KUB [id number] 09/26/2020 7:47 PM FINDINGS: Gastrointestinal tract: A 1.8 cm metallic radiopaque foreign body projects within the small bowel loops of the mid abdomen. Normal. No bowel dilation. Moderate colonic stool burden. Bones/joints: Unremarkable. XR/XR KUB [id number] IMPRESSION: 1.8 cm metallic foreign body projects within the small bowel loops of the mid abdomen.
[2021-01-25 16:51] VITALS: BP 134/86; PULSE 112; RESP 16; TEMP 36.7; O2SAT 99
--- NOTE | 2021-01-25 17:51 | W.ED.PSYCHS ---
HPI - Psych General: Chief Complaint: Psychiatric Symptoms Stated Complaint: SWALLOWED A PUSH PIN Time Seen by Provider: 01/25/21 17:07 History of Present Illness: HPI Narrative: 36 yo female presents to the emergency room expressing suicidal ideation. This is been a recurrent issue for her. She is been admitted in the past. Psychiatry is well acquainted with her. She states she swallowed attack and also claims to have drank some bleach although the caregivers at the [facility] home reports she had no access to any bleach. No hematochezia melena hematemesis or coffee-ground emesis. Patient was recently admitted and is anxious to be readmitted to psychiatry unit complaint: suicidal ideation and feels depressed Onset (ago): hour(s) Duration: intermittent History of same: Yes Relieving factors: none Exacerbating factors: none Associated psychiatric symptoms: depression and suicidal ideation Associated symptoms: Reports depression and suicidal ideation; Deny auditory hallucinations, visual hallucinations, delusions, homicidal ideation or racing thoughts Treatments prior to arrival: none If self harm: admits thoughts of self harm, has plan and has acted on plan Details of plan: See HPI Review of Systems Const: Denies: fever(s), chills, body aches, change in appetite, fatigue or malaise ENMT: Denies: throat pain, ear or mastoid pain, nasal discharge or nasal congestion Card: Denies: chest pain, edema, dyspnea on exertion or orthopnea Resp: Denies: dyspnea, productive cough or non-productive cough GI: Denies: abdominal pain, nausea, vomiting, hematemesis, coffee ground emesis, diarrhea, constipation, bloating, hematochezia or melena : Denies: flank pain, difficulty voiding, dysuria, urinary frequency or urinary urgency Skin/Breast: Denies: rash or pruritus Psych: Reports: depression and suicidal ideation; Denies: visual hallucinations, auditory hallucinations or homicidal ideation [facility] ED PFSH: Medical History Constipation H/O swallowed foreign body Hypothyroidism Major depressive disorder, recurrent severe without psychotic features Mental disability Post-traumatic stress disorder, chronic Psychiatric care Psychoses Surgical History H/O esophagogastroduodenoscopy (07/05/20) removal of FB History of cholecystectomy Social History Second hand smoke exposure: No Alcohol intake: never Caregiver/support person: Yes Lives independently: No Household members: other Details: LIVES IN A RETIREMENT Housing: Assisted Living Facility Marital status: Single Current occupational status: disabled History of recent travel: No Current gender identity: Female Additional social history: Patient states that she grew up in [place]. She is currently living in a fpc and is under guardianship. She enjoys playing games and eating hamburgers. She is despondent that there is no place in [place] where she can get a hamburger and does not know how to make one on her own. Female Reproductive History: Date of last menstrual period: 05/02/20 Physical Exam Const: COMMON NORMALS: no acute distress GENERAL APPEARANCE: cooperative and comfortable ORIENTATION/CONSCIOUSNESS: Yes awake HENMT: COMMON NORMALS: normocephalic, atraumatic, hearing grossly normal bilaterally, moist oral mucous membranes and oropharynx normal HEAD & SCALP: normocephalic and atraumatic Eye: COMMON NORMALS: Equal, round and reactive pupils present, EOMs intact bilaterally, conjunctivae normal and no scleral icterus CONJUNCTIVA: Yes conjunctivae normal PUPIL: Yes Equal, round and reactive pupils present Neck/C-Spine: COMMON NORMALS: full ROM, no lymphadenopathy, supple and no JVD Resp: COMMON NORMALS: normal respiratory effort, No retractions, No use of accessory muscles and clear to auscultation bilaterally AUSCULTATION: clear to auscultation bilaterally Cardio: COMMON NORMALS: no JVD, regular rate, regular rhythm and No murmurs present (Cardio) RATE: regular rate RHYTHM: regular rhythm GI: COMMON NORMALS: Soft to palpation and No hepatosplenomegaly present AUSCULTATION: Yes normoactive bowel sounds PALPATION: Yes Soft to palpation, No Tenderness to palpation present (GI), No Guarding due to palpation present (GI) and Yes No hepatosplenomegaly present Extremity: COMMON NORMALS: normal to inspection, capillary refill normal, no clubbing, cyanosis or edema, no calf tenderness and no pedal edema Psych: THOUGHT CONTENT: No delusions Skin: COMMON NORMALS: no rashes or lesions noted GENERAL SKIN EXAM: no rashes or lesions noted Course Vital Signs: Vital signs: Vital Signs Temperature 98.1 F 01/25/21 16:51 Pulse Rate 120 H 01/25/21 19:26 Respiratory Rate 22 H 01/25/21 19:26 Blood Pressure 137/87 01/25/21 19:26 Pulse Oximetry 96 01/25/21 19:26 MDM - Psych MDM Narrative: Medical decision making narrative: Discussed with psychiatry. Dr. Kendall has come and seen patient he does not recommend admission. Does not feel would be any benefit she has been admitted multiple times at this point her behavior is more attention seeking as well as avoidance by trying to avoid being in her current living setting she prefers the hospital setting. Laboratory evaluation does show ingested foreign body as she describes the tachycardia appears to be in the small bowel which is consistent with a history of having swallowed it several hours prior to presentation. Discussed with Dr. Dr. Moreno. He does not recommend any kind of attempted retrieval recommends allowing it to pass on its own. Patient given magnesium citrate to accelerate passage follow-up with primary psychiatry team as an outpatient to see Dr. Kendall note as well. Lab Data: Labs: Lab Results 01/25/21 01/25/21 01/25/21 17:50 17:50 17:50 WBC 14.4 10^3/uL H 10 ^3/uL (4.0-10.0) RBC 4.19 10^6/uL 10^6 /uL (4.1-5.3) Hgb 13.2 g/dL g/dL (11.5-15.3) Hct 41.7 % % (37.0-47.0) MCV 99.5 fl H fl (81-99) MCH 31.5 pg pg (28.0-34.0) MCHC 31.7 g/dL g/dL (30.0-36.0) RDW 14.7 % % (12.1-15.1) Plt Count 421 10^3/cmm H 10 ^3/cmm (130-400) MPV 9.6 fL fL (7.4-10.4) Neut % (Auto) 59.0 % % Lymph % (Auto) 29.3 % % Becker % (Auto) 9.9 % % Eos % (Auto) 0.8 % % Baso % (Auto) 0.4 % % Neut # (Auto) 8.51 10^3/uL H 10 ^3/uL (1.8-7.7) Lymph # (Auto) 4.2 10^3/uL 10^3/ uL (0.8-4.8) Becker # (Auto) 1.4 10^3/uL H 10^ 3/uL (0.2-0.9) Eos # (Auto) 0.1 10^3/uL 10^3/ uL (0.0-0.8) Baso # (Auto) 0.1 10^3/uL 10^3/ uL (0.0-0.1) Nucleated RBC % (a uto) 0.2 % % Nucleated RBCs # 0.0 /100WBC /100W BC Sodium 138 mmol/L mmol/L (136-145) Potassium 3.5 mmol/L mmol/L (3.5-5.1) Chloride 103 mmol/L mmol/L (98-107) Carbon Dioxide 20 mmol/L L mmol/ L (22-29) Anion Gap 18.5 (5-19) BUN 16 mg/dL mg/dL (6-20) Creatinine 0.6 mg/dL mg/dL (0.5-0.9) GFR Calculation 111.9 mL/min mL/m in (90-130) Glucose 76 mg/dL mg/dL (65-115) Calculated Osmolal ity 286 mOsm/kg mOsm/ kg (285-295) Calcium 8.7 mg/dL mg/dL (8.5-10.5) Total Bilirubin 0.2 mg/dL mg/dL (0.15-1.2) AST 32 U/L U/L (0-32) ALT 21 U/L U/L (0-33) Alkaline Phosphata se 70 IU/L IU/L (35-105) Total Protein 7.3 g/dL g/dL (6.6-8.7) Albumin 3.8 g/dL g/dL (3.5-5.2) Globulin 3.5 g/dL g/dL (1.3-4.6) HCG, Qual Negative (Negative) Salicylates < 0.3 mg/dL L mg/ dL (3-10) Acetaminophen < 5.0 ug/mL L ug/ mL (10-30) Discharge Plan Discharge Patient Disposition: Home Clinical Impression: Borderline personality disorder, Foreign body ingestion Condition: Stable Prescriptions: New magnesium citrate Solution 150 ml PO BID Qty: 296 RF: 0 No Action haloperidol 5 mg tablet 5 mg PO DAILY PRN (Reason: severe agitation) Qty: 30 RF: 1 quetiapine 100 mg tablet 100 mg PO BEDTIME RF: 0 venlafaxine 75 mg capsule,extended release 24hr 75 mg PO DAILY RF: 0 polyethylene glycol 3350 [Miralax] 17 gram/dose powder 17 gm PO DAILY PRN (Reason: constipation) Qty: 238 RF: 2 acetaminophen 325 mg capsule 650 mg PO Q6H PRN (Reason: fever of 100.4 or greater and/or pain) Qty: 120 RF: 2 ergocalciferol (vitamin D2) 1,250 mcg (50,000 unit) capsule 1,250 mcg PO .weekly Qty: 4 RF: 2 dextromethorphan-guaifenesin [Safe Tussin DM] 10-100 mg/5 mL liquid 10 ml PO Q6H PRN (Reason: Cough) RF: 0 levothyroxine 125 mcg tablet 125 mcg PO DAILY RF: 0 clonazepam 0.5 mg tablet 0.5 mg PO TID RF: 0 Depakote ER 500 mg tablet extended release 24 hr 500 mg PO BID RF: 0 omeprazole 20 mg capsule,delayed release(DR/EC) 20 mg PO BID RF: 0 topiramate 100 mg tablet 100 mg PO BEDTIME RF: 0 sennosides [Senna Laxative] 8.6 mg tablet 8.6 mg PO DAILY RF: 0 docusate sodium [Colace] 100 mg capsule 100 mg PO DAILY RF: 0 Discharge Orders: Discharge ED (Routine); Ordered 01/25/21 Ordered By: Lee Hough Referrals: Ольга Quarles FNP [Primary Care Provider] - Discharge Diet: Clear Liquid Discharge Activity: Resume usual activity Patient Instructions: Opioid Safety Coding Level of Care Code ED Biological Science Technician for Lasha Turner
[2021-01-25 18:03] LABS: Basophils # 0.1 10^3/uL (0.0-0.1); Basophils % 0.4 %; Eosinophils # 0.1 10^3/uL (0.0-0.8); Eosinophils % 0.8 %; Hematocrit 41.7 % (37.0-47.0); Hemoglobin 13.2 g/dL (11.5-15.3); Lymphocytes # 4.2 10^3/uL (0.8-4.8); Lymphocytes % 29.3 %; Mean Corpuscular HGB Conc 31.7 g/dL (30.0-36.0); Mean Corpuscular Hemoglobin 31.5 pg (28.0-34.0); Mean Corpuscular Volume 99.5 fl (81-99); Mean Platelet Volume 9.6 fL (7.4-10.4); Monocytes # 1.4 10^3/uL (0.2-0.9); Monocytes % 9.9 %; Neutrophils # 8.51 10^3/uL (1.8-7.7); Nucleated Red Blood Cells % 0.2 %; Platelet Count 421 10^3/cmm (130-400); Red Blood Count 4.19 10^6/uL (4.1-5.3); Red Cell Distribution Width 14.7 % (12.1-15.1); White Blood Count 14.4 10^3/uL (4.0-10.0)
[2021-01-25 18:26] LABS: HCG, Serum Qual Negative (Negative)
[2021-01-25 18:31] LABS: Alanine Aminotransferase 21 U/L (0-33); Albumin Level 3.8 g/dL (3.5-5.2); Alkaline Phosphatase 70 IU/L (35-105); Anion Gap 18.5 (5-19); Aspartate Amino Transferase 32 U/L (0-32); Blood Urea Nitrogen 16 mg/dL (6-20); Calcium 8.7 mg/dL (8.5-10.5); Carbon Dioxide 20 mmol/L (22-29); Chloride 103 mmol/L (98-107); Creatinine Clr Calc Pharmacy 151.2184; Globulin 3.5 g/dL (1.3-4.6); Glomerular Filtration Rate 111.9 mL/min (90-130); Glucose 76 mg/dL (65-115); Osmolality Calculated 286 mOsm/kg (285-295); Potassium 3.5 mmol/L (3.5-5.1); Sodium 138 mmol/L (136-145); Total Bilirubin 0.2 mg/dL (0.15-1.2); Total Protein 7.3 g/dL (6.6-8.7)
[2021-01-25 18:41] LABS: Acetaminophen < 5.0 ug/mL (10-30); Salicylate < 0.3 mg/dL (3-10)
[2021-01-25 19:26] VITALS: BP 137/87; PULSE 120; RESP 22; O2SAT 96
== END 2021-01-25 19:30 | disposition home or self-care (01) ==
PROVIDERS: Emergency Provider Family Medicine; PCP Nurse Practitioner Family
DX: F60.3 Borderline personality disorder (principal); T18.9XXA Foreign body of alimentary tract, part unspecified, initial encounter; X58.XXXA Exposure to other specified factors, initial encounter
CPT/HCPCS: 74018; 80053; 80307; 84703; 85025; 99283

== ENCOUNTER 2021-02-02 08:44 | Outpatient (CLI) | payer MEDICAID, SELFPAY ==
--- NOTE | 2021-02-02 08:51 | XR_ITS ---
WS: [id number] XR KUB [id number] REASON FOR EXAM: T18.9XXA - Foreign body of alimentary tract, part unspeci... FINDINGS: Bowel gas pattern is unremarkable. No free air or retroperitoneal air. No significant calcification. No mass identified. No radiopaque foreign body identified. XR/XR KUB [id number] IMPRESSION: No acute abnormality.
== END 2021-02-02 08:45 | disposition home or self-care (01) ==
PROVIDERS: PCP Nurse Practitioner Family; Visit Provider Nurse Practitioner Family
DX: T18.9XXA Foreign body of alimentary tract, part unspecified, initial encounter (principal)
CPT/HCPCS: 74018

== ENCOUNTER 2021-02-04 17:25 | Emergency (ER) | payer MEDICAID, SELFPAY ==
[2021-02-04 17:33] VITALS: BP 122/82; PULSE 92; RESP 16; TEMP 36.8; O2SAT 98
--- NOTE | 2021-02-04 17:36 | XRR_ITS ---
PROCEDURE INFORMATION: Exam: XR Abdomen Exam date and time: 02/04/2021 5:36 PM Age: 36 years old Clinical indication: Other: Swallowed foreign body; Additional info: Swallowed fb TECHNIQUE: Imaging protocol: XR of the abdomen. Views: 2 Views. Upright and supine views. Total images: 2 COMPARISON: CR (ABDOMEN, ) 01/25/2021 5:10 PM FINDINGS: Heart/Mediastinum: Cardiac structures and configuration within normal limits. Lungs: Diminished inspiratory effort. Vascular crowding in the lung bases. No visible active interstitial or alveolar airspace disease. Gastrointestinal tract: Nonobstructive bowel pattern. No visible adynamic or reactive ileus. Intraperitoneal space: No visible pneumoperitoneum. Bones/joints: Unremarkable for age. Soft tissues: No visible radiopaque foreign body. XR/XR acute abdomen series [id number] IMPRESSION: No visible radiopaque foreign body.
--- NOTE | 2021-02-04 18:24 | ED_ITS ---
HPI - General Adult General: Chief complaint: Airway/Esophagus Foreign Body Stated complaint: SWALLOWED BINDER CLIP Time Seen by Provider: 02/04/21 18:17 History of Present Illness: HPI narrative: Patient complains about throat pain after supposedly swallowing a paperclip device earlier this afternoon. Patient has a history of swallowing foreign objects. Onset (ago): hour(s) Radiation: non-radiation Severity: mild Severity scale (1-10): 1 Quality: aching Relieving factors: none Exacerbating factors: none Associated symptoms: Reports no associated symptoms; Deny chest pain, headache(s), rash or vomiting Review of Systems Narrative: Possibly swallowed a paper clip type object Const: Denies: fever(s), chills or body aches Eyes: Denies: eye discharge ENMT: Reports: throat pain; Denies: oral sores or nasal congestion Card: Denies: chest pain or dyspnea on exertion Resp: Denies: wheezing or stridor GI: Denies: vomiting or diarrhea Musc: Denies: extremity pain Skin/Breast: Denies: rash Neuro: Denies: headache(s) Psych: Denies: anxiety or depression Hayden/Lymph: Denies: easy bruising PFSH ED PFSH: Medical History Constipation H/O swallowed foreign body Hypothyroidism Major depressive disorder, recurrent severe without psychotic features Mental disability Post-traumatic stress disorder, chronic Psychiatric care Psychoses Surgical History H/O esophagogastroduodenoscopy (07/05/20) removal of FB History of cholecystectomy Social History Second hand smoke exposure: No Alcohol intake: never Caregiver/support person: Yes Lives independently: No Household members: other Details: LIVES IN A FCI Housing: Assisted Living Facility Marital status: Single Current occupational status: disabled History of recent travel: No Current gender identity: Female Additional social history: Patient states that she grew up in [place]. She is currently living in a shelter and is under guardianship. She enjoys playing games and eating hamburgers. She is despondent that there is no place in [place] where she can get a hamburger and does not know how to make one on her own. Female Reproductive History: Date of last menstrual period: 05/02/20 Physical Exam Const: COMMON NORMALS: no acute distress GENERAL APPEARANCE: cooperative HENMT: COMMON NORMALS: TM's normal bilaterally TYMPANIC MEMBRANE: TM's normal bilaterally MOUTH: Normal oral and palatal mucosa present THROAT: posterior oropharynx normal Resp: COMMON NORMALS: normal respiratory effort Psych: COMMON NORMALS: mental status grossly normal Course Vital Signs: Vital signs: Vital Signs Temperature 98.2 F 02/04/21 17:33 Pulse Rate 92 02/04/21 17:33 Respiratory Rate 18 02/04/21 18:38 Blood Pressure 122/82 02/04/21 17:33 Pulse Oximetry 98 02/04/21 18:38 MDM - General Adult MDM Narrative: Medical decision making narrative: Visible Blinder clip noted in throat. Patient not have any problems breathing. Has mild discomfort. Was able to use forceps and remove the binder clip without any difficulty. Patient tolerated procedure well. Patient encouraged on swallowing more objects. Discharge Plan Discharge Patient Disposition: Home Clinical Impression: Foreign body in throat Qualifiers: Encounter type: initial encounter Qualified Code(s): T17.208A - Unspecified foreign body in pharynx causing other injury, initial encounter Condition: Stable Prescriptions: No Action haloperidol 5 mg tablet 5 mg PO DAILY PRN (Reason: severe agitation) Qty: 30 RF: 1 quetiapine 100 mg tablet 100 mg PO BEDTIME RF: 0 venlafaxine 75 mg capsule,extended release 24hr 75 mg PO DAILY RF: 0 polyethylene glycol 3350 [Miralax] 17 gram/dose powder 17 gm PO DAILY PRN (Reason: constipation) Qty: 238 RF: 2 acetaminophen 325 mg capsule 650 mg PO Q6H PRN (Reason: fever of 100.4 or greater and/or pain) Qty: 120 RF: 2 ergocalciferol (vitamin D2) 1,250 mcg (50,000 unit) capsule 1,250 mcg PO .weekly Qty: 4 RF: 2 dextromethorphan-guaifenesin [Safe Tussin DM] 10-100 mg/5 mL liquid 10 ml PO Q6H PRN (Reason: Cough) RF: 0 levothyroxine 125 mcg tablet 125 mcg PO DAILY RF: 0 clonazepam 0.5 mg tablet 0.5 mg PO TID RF: 0 Depakote ER 500 mg tablet extended release 24 hr 500 mg PO BID RF: 0 omeprazole 20 mg capsule,delayed release(DR/EC) 20 mg PO BID RF: 0 topiramate 100 mg tablet 100 mg PO BEDTIME RF: 0 sennosides [Senna Laxative] 8.6 mg tablet 8.6 mg PO DAILY RF: 0 docusate sodium [Colace] 100 mg capsule 100 mg PO DAILY RF: 0 magnesium citrate Solution 150 ml PO BID Qty: 296 RF: 0 Discharge Orders: Discharge ED (Routine); Ordered 02/04/21 Ordered By: Pancho Metcalf Referrals: Ольга Quarles FNP [Primary Care Provider] - Discharge Diet: Usual diet Discharge Activity: Increase activity as tolerated Activity Restrictions/Additional Instructions: Do not swallow any more objects that do not belong in the mouth such as metal objects and such like this that he swallowed today. Keep appointment with behavioral health care as scheduled. Follow-up your primary care provider if he having problems with your throat after this. Can take Tylenol for discomfort. Coding Level of Care Code ED Seafood Preparer for Chg Fwd Exam Expanded Problem Focused
[2021-02-04 18:38] VITALS: RESP 18; O2SAT 98
== END 2021-02-04 18:48 | disposition home or self-care (01) ==
PROVIDERS: Emergency Provider Nurse Practitioner Family; PCP Nurse Practitioner Family
DX: T17.208A Unspecified foreign body in pharynx causing other injury, initial encounter (principal); X83.8XXA Intentional self-harm by other specified means, initial encounter
CPT/HCPCS: 74022; 99283

== ENCOUNTER → 2021-02-22 09:11 | Outpatient (BNVA) | payer MEDICAID, SELFPAY | PROVIDERS: PCP Nurse Practitioner Family; Visit Provider Nurse Practitioner | DX: F43.12 Post-traumatic stress disorder, chronic (principal); F70 Mild intellectual disabilities; F60.3 Borderline personality disorder | CPT/HCPCS: 99214 ==

== ENCOUNTER 2021-02-27 20:54 | Observation (INO) | payer MEDICAID, SELFPAY ==
--- NOTE | 2021-02-27 20:58 | XRR_ITS ---
PROCEDURE INFORMATION: Exam: XR Abdomen Exam date and time: 02/27/2021 8:58 PM Age: 36 years old Clinical indication: Other: Foreign body; Patient HX: PT states she swallowed a battery; Additional info: Fb TECHNIQUE: Imaging protocol: XR of the abdomen. Views: Frontal supine view of the abdomen. 1 View. COMPARISON: CR XR acute abdomen series [id number] 02/04/2021 5:51 PM FINDINGS: Gastrointestinal tract: Normal. No bowel dilation. Bones/joints: Unremarkable. Soft tissues: 4.6 x 1.1 cm AAA-battery shaped metallic foreign body over the stomach. XR/XR KUB [id number] IMPRESSION: 4.6 x 1.1 cm AAA-battery shaped metallic foreign body over the stomach.
--- NOTE | 2021-02-27 20:58 | XRR_ITS ---
PROCEDURE INFORMATION: Exam: XR Chest Exam date and time: 02/27/2021 8:58 PM Age: 36 years old Clinical indication: Other: Foreign body; Patient HX: PT states she swallowed a battery; Additional info: Fb TECHNIQUE: Imaging protocol: XR of the chest. Views: 1 view. COMPARISON: CR XR chest 1V portable [id number] 09/26/2020 7:46 PM FINDINGS: Tubes, catheters and devices: Metallic triple a battery shaped foreign body over the stomach. Lungs: Unremarkable. No consolidation. Pleural spaces: Unremarkable. No pleural effusion. No pneumothorax. Heart/Mediastinum: Unremarkable. No cardiomegaly. Bones/joints: Unremarkable. XR/XR chest 1V portable [id number] IMPRESSION: Metallic triple a battery shaped foreign body over the stomach.
[2021-02-27 21:03] VITALS: BP 113/78; PULSE 130; RESP 18; TEMP 36.4; O2SAT 97; BMI 42.1
--- NOTE | 2021-02-27 21:11 | W.ED.PSYCHS ---
HPI - Psych General: Chief Complaint: Psychiatric Symptoms Stated Complaint: Swallow AA Batteries Time Seen by Provider: 02/27/21 21:11 Source: patient Mode of arrival: ambulatory Limitations: no limitations History of Present Illness: HPI Narrative: 36-year-old female who is very well-known to the ER its been here multiple multiple times for foreign body ingestions and attempts to harm herself she states that she had swallowed a AAA battery today she states she is having some depression was trying to harm her self. Denies any other ingestions patient is calm now states she is not currently suicidal denies any worsening proving factors denies any abdominal pain. Associated symptoms: Deny depression Review of Systems Const: Denies: fever(s), chills, body aches or change in appetite Eyes: Denies: blurry vision or eye discomfort ENMT: Denies: throat pain or dental pain Card: Denies: chest pain Resp: Denies: dyspnea GI: Denies: abdominal pain, nausea, vomiting or diarrhea : Denies: dysuria Musc: Denies: neck pain or back pain Skin/Breast: Denies: rash Neuro: Denies: headache(s) Psych: Denies: depression Hayden/Lymph: Denies: easy bruising All/Imm: Denies: urticaria PFSH ED PFSH: Medical History Constipation H/O swallowed foreign body Hypothyroidism Major depressive disorder, recurrent severe without psychotic features Mental disability Post-traumatic stress disorder, chronic Psychiatric care Psychoses Surgical History H/O esophagogastroduodenoscopy (07/05/20) removal of FB History of cholecystectomy Social History Second hand smoke exposure: No Alcohol intake: never Caregiver/support person: Yes Lives independently: No Household members: other Details: LIVES IN A CUSTODIAL Housing: Assisted Living Facility Marital status: Single Current occupational status: disabled History of recent travel: No Current gender identity: Female Additional social history: Patient states that she grew up in [place]. She is currently living in a long-term and is under guardianship. She enjoys playing games and eating hamburgers. She is despondent that there is no place in [place] where she can get a hamburger and does not know how to make one on her own. Female Reproductive History: Date of last menstrual period: 05/02/20 Physical Exam Const: COMMON NORMALS: no acute distress, patient oriented x3 and healthy appearing HENMT: COMMON NORMALS: normocephalic and atraumatic HEAD & SCALP: normocephalic and atraumatic Eye: COMMON NORMALS: Equal, round and reactive pupils present and EOMs intact bilaterally PUPIL: Yes Equal, round and reactive pupils present Neck/C-Spine: COMMON NORMALS: full ROM and supple Chest: COMMONS NORMALS: normal inspection of the chest and normal palpation of entire chest wall Resp: COMMON NORMALS: normal respiratory effort, No retractions, No use of accessory muscles and clear to auscultation bilaterally AUSCULTATION: clear to auscultation bilaterally Cardio: COMMON NORMALS: regular rate, regular rhythm and No murmurs present (Cardio) RATE: regular rate RHYTHM: regular rhythm GI: COMMON NORMALS: Normal to inspection, nondistended, normoactive bowel sounds present, Soft to palpation, non-tender and no masses PALPATION: Yes Soft to palpation Extremity: COMMON NORMALS: normal to inspection and full ROM Neuro: COMMON NORMALS: patient oriented x3, moves all extremities and no focal motor deficits Psych: COMMON NORMALS: mental status grossly normal, Normal thought process present and cooperative THOUGHT PROCESS: Normal thought process present Skin: COMMON NORMALS: no rashes or lesions noted and no wounds GENERAL SKIN EXAM: no rashes or lesions noted Course Vital Signs: Vital signs: Vital Signs Temperature 97.5 F L 02/27/21 21:03 Pulse Rate 130 H 02/27/21 21:03 Respiratory Rate 18 02/27/21 21:03 Blood Pressure 113/78 02/27/21 21:03 Pulse Oximetry 97 02/27/21 21:03 MDM - Psych MDM Narrative: Medical decision making narrative: Patient presents here with a foreign body ingestion of a battery patient evaluated by Dr. Kendall in psychiatry she is cleared to be discharged after the batteries removed is not actively suicidal does not meet inpatient criteria spoke to Dr. Sharma who will come in and do a scope and remove the battery. Discharge Plan Discharge Patient Disposition: Admitted As Inpatient Clinical Impression: Swallowed foreign body Qualifiers: Encounter type: initial encounter Qualified Code(s): T18.9XXA - Foreign body of alimentary tract, part unspecified, initial encounter Condition: Stable Coding Level of Care Code ED Fibre Optic Cable Splicer for Lasah Fwd Exam Comprehensive
[2021-02-27] MEDS: sodium chloride 0.9% 1,000 ML 999 ML IV (21:58)
--- NOTE | 2021-02-27 22:06 | PC.NURSE ---
report given to Radha in GI Lab
--- NOTE | 2021-02-27 22:19 | P.HP_ITS ---
Providers/Chief Complaint Admitting Physician: Dwayne Sharma MD Primary Care Provider: JACKIE Beverly Chief Complaint: Swallow AA Batteries History of Present Illness Ms. Shelby Cherry is a 36 year old female well-known to me from previous clinical encounters, patient does have history of ingestion of foreign bodies. This time comes to the ER with alleged swallowed AAA battery as her caregiver found that she had swallowed 1 from the TV remote control that happened around 8 PM, I was contacted around 9:40 PM and came immediately to the ER for evaluation and potential intervention in the form of EGD and possible removal of foreign bodies. Patient was seen and evaluated in room 8 in the ER. Shows no signs of distress. A portable KUB was obtained and showed swallowed AAA battery in the stomach. Review of Systems General: Reports: ROS unobtainable due to mental status Medications/Allergies Home Medications Medication Instructions Recorded Confirmed Last Taken Type polyethylene glycol 3350 17 17 gm PO DAILY PRN #238 gm 07/02/19 02/22/21 08/12/19 Rx gram/dose oral powder acetaminophen 325 mg capsule 650 mg PO Q6H PRN #120 cap 03/16/20 02/22/21 Unknown Rx dextromethorphan-guaifenesin [Safe 10 ml PO Q6H PRN 06/24/20 02/22/21 Unknown History Tussin DM] docusate sodium [Colace] 100 mg PO DAILY 07/05/20 02/22/21 07/27/20 History sennosides [Senna Laxative] 8.6 mg PO DAILY 07/05/20 02/22/21 07/08/20 History haloperidol 5 mg tablet 5 mg PO DAILY PRN #30 tab 10/30/20 02/22/21 Unknown Rx magnesium citrate 150 ml PO BID #296 ml 01/25/21 02/22/21 Unknown Rx levothyroxine 125 mcg tablet See Rx Instructions .ROUTE 02/08/21 02/22/21 Unknown Rx .COMPLEX #30 tablet ergocalciferol (vitamin D2) 1,250 See Rx Instructions .ROUTE 02/15/21 02/22/21 Unknown Rx mcg (50,000 unit) capsule .COMPLEX #4 cap omeprazole 20 mg capsule,delayed See Rx Instructions .ROUTE 02/15/21 02/22/21 Unknown Rx release .COMPLEX #60 capsule venlafaxine 150 mg 150 mg PO DAILY #30 cap 02/17/21 02/22/21 Unknown Rx capsule,extended release 24 hr clonazepam 0.5 mg tablet 0.5 mg PO TID #90 tab 02/22/21 02/22/21 Unknown Rx divalproex 500 mg tablet,extended 500 mg PO BID #60 tab 02/22/21 02/22/21 Unknown Rx release 24 hr quetiapine 100 mg tablet 200 mg PO BEDTIME #60 tab 02/22/21 02/22/21 Unknown Rx topiramate 100 mg tablet 100 mg PO BEDTIME #30 tab 02/22/21 02/22/21 Unknown Rx Allergies Allergy/AdvReac Type Severity Reaction Status Date / Time adhesive Allergy ALGY-Rash Verified 02/22/21 09:27 nitrofurantoin Allergy Unknown Verified 02/22/21 09:27 [From Macrobid] Penicillins Allergy Unknown Verified 02/22/21 09:27 BAND-AIDS Allergy Unknown Uncoded 01/25/21 16:54 TIDE DETERGENT Allergy Unknown Uncoded 01/25/21 16:54 PFSH Acute PFSH: Medical History Constipation H/O swallowed foreign body Hypothyroidism Major depressive disorder, recurrent severe without psychotic features Mental disability Post-traumatic stress disorder, chronic Psychiatric care Psychoses Surgical History H/O esophagogastroduodenoscopy (07/05/20) removal of FB History of cholecystectomy Social History Second hand smoke exposure: No Alcohol intake: never Caregiver/support person: Yes Lives independently: No Household members: other Details: LIVES IN A FDC Housing: Assisted Living Facility Marital status: Single Current occupational status: disabled History of recent travel: No Current gender identity: Female Additional social history: Patient states that she grew up in [place]. She is currently living in a fdc and is under guardianship. She enjoys playing games and eating hamburgers. She is despondent that there is no place in [place] where she can get a hamburger and does not know how to make one on her own. Female Reproductive History: Date of last menstrual period: 05/02/20 Vitals/I&O/Wt Last Vital Signs Temp 97.5 F L 02/27/21 21:03 Pulse 130 H 02/27/21 21:03 Resp 18 02/27/21 21:03 BP 113/78 02/27/21 21:03 Pulse Ox 97 02/27/21 21:03 Weight last 48 hrs Weight 238 lb Physical Exam Const: COMMON NORMALS: no acute distress and patient oriented x3 GENERAL APPEARANCE: cooperative ORIENTATION/CONSCIOUSNESS: Yes awake, Yes oriented to person, Yes oriented to place and Yes oriented to time HENMT: COMMON NORMALS: normocephalic HEAD & SCALP: normocephalic Eye: COMMON NORMALS: Equal, round and reactive pupils present and no scleral icterus PUPIL: Yes Equal, round and reactive pupils present Lymph: LYMPHATIC: no lymphadenopathy noted Chest: COMMONS NORMALS: normal inspection of the chest Resp: COMMON NORMALS: normal respiratory effort and clear to auscultation bilaterally AUSCULTATION: clear to auscultation bilaterally Cardio: COMMON NORMALS: S1 normal heart sound present and S2 normal heart sound present; negative for No murmurs present (Cardio) HEART SOUNDS: S1 normal heart sound present and S2 normal heart sound present GI: COMMON NORMALS: Soft to palpation; negative for No hepatosplenomegaly present INSPECTION: Yes normal to inspection PALPATION: Yes Soft to palpation, No Firmness to palpation present (GI), No Tenderness to palpation present (GI), No Guarding due to palpation present (GI), No Rigid due to palpation and No No hepatosplenomegaly present Neuro: COMMON NORMALS: patient oriented x3 SENSORIUM/ORIENTATION: Yes oriented to person, Yes oriented to place and Yes oriented to time Psych: COMMON NORMALS: mental status grossly normal Skin: COMMON NORMALS: no rashes or lesions noted GENERAL SKIN EXAM: no rashes or lesions noted A&P Assessment and plan (1) Swallowed foreign body: Plan of care; After thorough history and physical examination and reviewing the chart, plan to perform a diagnostic esophagogastroduodenoscopy with possible removal of foreign body in the GI lab. I discussed with the patient's caregiver in detail the risk,benefits,alternative s and indications.The risk of aspiration, bleeding, soft tissue injury, perforation of the stomach/esophagus and other potential concomitant complications were explained to the patient's caregiver in details,aslo the potential need for Thoracic and or Abdominal surgery to repair any complications.The patient's caregiver understood this well and did agree to proceed. Rationale was carefully and clearly discussed with the patient's caregiver.Appropriate informed consent have been reviewed and signed All questions have been answered and all concerns have been addressed to patient's caregiver satisfaction. Status: Acute Qualifiers: Encounter type: initial encounter Qualified Code(s): T18.9XXA - Foreign body of alimentary tract, part unspecified, initial encounter Attestations Medical Necessity Statement*: Outpatient in the bed Time Spent in Patient Care: (>than 50% of time spent in counselling and/or direct pt care on unit) . Coding Level of Care Code Acute Contract Negotiation Manager for Chg Fwd Diagnoses Swallowed foreign body T18.9XXA Encounter type: initial encounter
--- NOTE | 2021-02-27 22:21 | PC.NURSE ---
pt went to GI Lab
[2021-02-27 22:27] VITALS: BP 124/84; PULSE 98; RESP 18; TEMP 36.6; O2SAT 98
--- NOTE | 2021-02-27 22:30 | P.ANESASSM_ITS ---
Pre-Anesthetic Assessment Pre-Anesthetic Assessment: Height/Weight: Height 1.6 m Weight 107.955 kg Temp Pulse Resp BP Pulse Ox 97.8 F 98 18 124/84 98 02/27/21 22:27 02/27/21 22:27 02/27/21 22:27 02/27/21 22:27 02/27/21 22:27 Preop Diagnosis: Swallowed foreign body Proposed Procedure: Operation Date: 02/27/21 22:30 Proposed Procedures p Foreign Body Removal(Not Applicable) - Dwayne Sharma MD Was Beta Cecilia taken within 24 hours: N/A Was Clonidine taken within 24 hours: N/A Last intake: Full stomach Social: Social History: No alcohol and No tobacco Exam: Pre-Anes Outpt Exam: alert, oriented x 3, clear to auscultation bilaterally and regular rate & rhythm Airway: Submandibular: WNL Cervical ROM: WNL MP: 1 Dentition: Chipped Pulmonary: Pulmonary: None reported CV/HEM: CV/HEM: None reported : : None reported Hepatic: Hepatic: None reported GI: GI: GERD Comments: Foreign bocy Metabolic: Metabolic: Thyroid Musc/skel: Musc/skel: None reported Neuropsych: Neuropsych: Depression Comments: DD Psychoses Hx PTSD Anesthetic Plan: ASA status: 2E Anesthesia: General Risk of > 500 ml blood loss (7ml/kg in children): No Meds/Allergies Current Medications: Current Medications Generic Name Dose Route Start Last Admin Trade Name Freq PRN Reason Stop Dose Admin Sodium Chloride 1,000 mls @ 999 m ls/hr 02/27/21 21:44 02/27/21 21:58 Sodium Chloride 0.9% IV 02/27/21 22:44 999 mls/hr .Q1H1M ONE Administration PFSH Anesthesia PFSH: Medical History Constipation H/O swallowed foreign body Hypothyroidism Major depressive disorder, recurrent severe without psychotic features Mental disability Post-traumatic stress disorder, chronic Psychiatric care Psychoses Surgical History H/O esophagogastroduodenoscopy (07/05/20) removal of FB History of cholecystectomy Social History (Reviewed 02/27/21 @ 22:31 by PARISH Jackson Second hand smoke exposure: No Alcohol intake: never Caregiver/support person: Yes Lives independently: No Household members: other Details: LIVES IN A NURSING HOME Housing: Assisted Living Facility Marital status: Single Current occupational status: disabled History of recent travel: No Current gender identity: Female Additional social history: Patient states that she grew up in [place]. She is currently living in a detention and is under guardianship. She enjoys playing games and eating hamburgers. She is despondent that there is no place in [place] where she can get a hamburger and does not know how to make one on her own. Female Reproductive History: Date of last menstrual period: 05/02/20 Data Anesthesia Cardiac Studies: No Data to Display
[2021-02-27] MEDS: famotidine 20 mg/2 mL INJ 40 MG IVP (23:40)
--- NOTE | 2021-02-27 23:51 | XRR_ITS ---
PROCEDURE INFORMATION: Exam: XR Abdomen Exam date and time: 02/27/2021 11:51 PM Age: 36 years old Clinical indication: Other: Foreign body TECHNIQUE: Imaging protocol: XR of the abdomen. Views: Frontal supine view of the abdomen. 1 View. COMPARISON: CR XR KUB [id number] 02/27/2021 9:17 PM FINDINGS: Gastrointestinal tract: See Soft tissues finding. There is a tubular metallic foreign body seen projected over the left upper quadrant of the abdomen similar to finding on the examination done approximately 3 hours ago. This is likely within the stomach. Bones/joints: Unremarkable. XR/XR KUB portable [id number] IMPRESSION: Foreign body in the stomach.
--- NOTE | 2021-02-27 23:54 | ANE.PACU2 ---
Inpatient post-anesthesia follow up: Vital signs: Temperature 97.8 F Pulse Rate 98 Respiratory Rate 18 Blood Pressure 124/84 Pulse Oximetry 98 Oxygen Delivery Me thod Room Air Oxygen Flow Rate Fraction of Inspir ed Oxygen
[2021-02-28 00:35] VITALS: BP 122/60; PULSE 82; RESP 16; TEMP 36.4; O2SAT 100
[2021-02-28 00:50] VITALS: BP 122/70; PULSE 79; RESP 18; TEMP 36.3; O2SAT 98
[2021-02-28 01:14] VITALS: PULSE 88; RESP 18; O2SAT 98
[2021-02-28 01:40] VITALS: BMI 42.1
[2021-02-28] MEDS: famotidine 20 mg/2 mL INJ IVP (03:11)
[2021-02-28] MEDS: sodium chloride 0.9% 1,000 ML 30 ML IV (03:11)
--- NOTE | 2021-02-28 06:00 | XRR_ITS ---
PROCEDURE INFORMATION: Exam: XR Abdomen Exam date and time: 02/28/2021 6:00 AM Age: 36 years old Clinical indication: Other: Fb in stomach TECHNIQUE: Imaging protocol: XR of the abdomen. Views: Frontal supine view of the abdomen. 1 View. COMPARISON: CR (ABDOMEN, ) 02/28/2021 12:02 AM FINDINGS: Gastrointestinal tract: Scattered bowel gas in a nonspecific fashion. Right abdominal and upper abdominal bilateral fecal debris. Bones/joints: Degenerative change of the spine. Soft tissues: An oval 2.5 by 1.1 cm radiopaque suspected foreign body remains at the left upper quadrant likely residing within the stomach not significantly changed compared to the prior image earlier on the same date. XR/XR KUB [id number] IMPRESSION: Suspect persistent left upper quadrant foreign body vicinity of the stomach.
--- NOTE | 2021-02-28 07:54 | PM.SDS ---
Short Stay Summary Providers Date of Admit/Discharge: 02/28/21 Attending Provider: Dwayne Sharma MD Primary Care Provider: JACKIE Beverly Chief Complaint: Swallow AA Batteries HPI History of Present Illness Ms. Shelby Cherry is a 36 year old female well-known to me from previous clinical encounters, patient does have history of ingestion of foreign bodies. This time comes to the ER with alleged swallowed AAA battery as her caregiver found that she had swallowed 1 from the TV remote control that happened around 8 PM, I was contacted around 9:40 PM and came immediately to the ER for evaluation and potential intervention in the form of EGD and possible removal of foreign bodies. Patient was seen and evaluated in room 8 in the ER. Shows no signs of distress. A portable KUB was obtained and showed swallowed AAA battery in the stomach. Patient well-known by multiple attempts of swallowing foreign objects and previous endoscopies were done to retrieve foreign bodies. From the caregivers description that the patient had another caregiver that was on the phone and apparently Ms. Cherry had an access to TV remote control where she was able to swallow a AAA single battery. KUB was obtained in the ER that showed; 4.6 x 1.1 cm AAA-battery shaped metallic foreign body over the stomach. And a chest x-ray as well that showed Metallic triple a battery shaped foreign body over the stomach. Patient was taken to the GI suite and was intubated by anesthesia Review of Systems General: Reports: ROS unobtainable due to mental status Home Meds/Allergies Home Medications and Allergies Home Medications Medication Instructions Recorded Confirmed Type dextromethorphan-guaifenesin [Safe 10 ml PO Q6H PRN 06/24/20 02/28/21 History Tussin DM] docusate sodium [Colace] 100 mg PO DAILY 07/05/20 02/28/21 History sennosides [Senna Laxative] 8.6 mg PO DAILY 07/05/20 02/28/21 History Allergies Allergy/AdvReac Type Severity Reaction Status Date / Time adhesive Allergy ALGY-Rash Verified 02/28/21 07:56 nitrofurantoin Allergy Unknown Verified 02/28/21 07:56 [From Macrobid] Penicillins Allergy Unknown Verified 02/28/21 07:56 BAND-AIDS Allergy Unknown Uncoded 02/28/21 07:56 TIDE DETERGENT Allergy Unknown Uncoded 02/28/21 07:56 PFSH Acute PFSH: Medical History Constipation H/O swallowed foreign body Hypothyroidism Major depressive disorder, recurrent severe without psychotic features Mental disability Post-traumatic stress disorder, chronic Psychiatric care Psychoses Surgical History H/O esophagogastroduodenoscopy (07/05/20) removal of FB History of cholecystectomy Social History Second hand smoke exposure: No Alcohol intake: never Caregiver/support person: Yes Lives independently: No Household members: other Details: LIVES IN A LONGTERM Housing: Assisted Living Facility Marital status: Single Current occupational status: disabled History of recent travel: No Current gender identity: Female Additional social history: Patient states that she grew up in [place]. She is [place] living [place] [facility] and is under guardianship. She enjoys playing games and eating hamburgers. She is despondent that there is no place in [place] where she can get a hamburger and does not know how to make one on her own. Female Reproductive History: Date of last menstrual period: 05/02/20 Vitals/I&O/Wt Last Vital Signs Temp 97.4 F L 02/28/21 00:50 Pulse 88 02/28/21 01:14 Resp 18 02/28/21 01:14 BP 122/70 02/28/21 00:50 Pulse Ox 98 02/28/21 01:14 02/27/21 02/28/21 02/28/21 22:59 06:59 14:59 Intake Total 2600 / 2600 Output Total 1999 / 1999 Balance 600 / 600 Weight last 48 hrs Weight 238 lb Weight 238 lb Physical Exam Narrative: EXAM NARRATIVE: Patient is conscious alert oriented X3 No apparent distress BMI 42.2 Head and neck examination PERRLA no masses no cervical lymphadenopathy no jaundice Cardiac examination audible S1-S2 no murmurs no gallops no arrhythmias Chest is clear bilateral,abscence of Rhonchi or wheezes,no surgical emphysema Abdomen nontender nondistended soft no organomegaly guarding or rigidity/no signs of peritonitis Extremities no cyanosis no clubbing no edema Hospital Course Hospital Course Patient undergone uneventful attempts via diagnostic Endoscopy and a trial to remove the foreign body but unfortunately that was not successful due to the large burden of retained food particles in the stomach, that made it quite challenging to have a safe access to remove the foreign body, about 2 hours or so were spent in the GI suite while the patient was intubated in an attempt to irrigate the food particles and wash the stomach to have safe access to remove the battery but that was not successful. Intraprocedural x-ray was obtained and did show the presence of the foreign body towards the fundus of the stomach but in spite of frequent attempts I had to abort after contacting poison control center where they advised it would be safe to watch the patient until she passes out with stools. And also it would be appropriate to have the patient discharged and followed up on as an outpatient. At that point I decided it would be appropriate enough to abort and have the patient admitted for observation as it has been already late at night around 1:00 am , for IV fluid hydration with repeat KUB in the morning. On morning rounds patient appears to be clinically stable and she verbalized that she is hungry, patient was kept n.p.o. overnight and a repeat KUB in the morning was done that showed Suspect persistent left upper quadrant foreign body vicinity of the stomach. No signs of distress and vital signs maintained to be stable with adequate urine output We will plan to feed the patient clear liquid diet and really examine her if she continues to be appropriate we will discharge to her facility and have her follow-up with me as an outpatient with repeat KUB Discharge Summary This is a 36 years old female patient morbidly obese with psychiatric condition. And frequent attempts of swallowing foreign subjects. Multiple attempts using different types of endoscopies and different positioning in the GI suite while the patient was intubated were done and unfortunately do not successful to retrieve the foreign body, the procedure was aborted and patient was observed overnight and she maintained to have appropriate stable vital signs, and met the appropriate criteria for safe discharge home, home medications were reviewed and resumed. Specific education was given to the care providers about the importance to keep a closer eye on the patient to prevent future occurrences. Clinical rounds were made again at 10:00 in the morning and patient seems to be tolerating p.o. intake without complications. Plan to discharge patient home SSS Data Data Completed and Pending: Completed Studies During Hospitalization Category Date Time Status XR KUB [id number] Rout ine Exams 02/28/21 06:00 Completed XR KUB [id number] Stat Exams 02/27/21 20:58 Completed XR KUB portable [id number] Routine Exams 02/27/21 23:51 Completed XR chest 1V jez ble [id number] Stat Exams 02/27/21 20:58 Completed Diagnoses at Discharge Discharge Diagnosis (1) Swallowed foreign body: Status: Acute Qualifiers: Encounter type: initial encounter Qualified Code(s): T18.9XXA - Foreign body of alimentary tract, part unspecified, initial encounter Discharge Plan Discharge Patient Disposition: Home Condition: Stable Prescriptions: Continued haloperidol 5 mg tablet 5 mg PO DAILY PRN (Reason: severe agitation) Qty: 30 RF: 1 topiramate 100 mg tablet 100 mg PO BEDTIME Qty: 30 RF: 2 quetiapine 100 mg tablet 200 mg PO BEDTIME Qty: 60 RF: 2 Depakote ER 500 mg tablet extended release 24 hr 500 mg PO BID Qty: 60 RF: 2 clonazepam 0.5 mg tablet 0.5 mg PO TID Qty: 90 RF: 2 polyethylene glycol 3350 [Miralax] 17 gram/dose powder 17 gm PO DAILY PRN (Reason: constipation) Qty: 238 RF: 2 acetaminophen 325 mg capsule 650 mg PO Q6H PRN (Reason: fever of 100.4 or greater and/or pain) Qty: 120 RF: 2 levothyroxine 125 mcg tablet See Rx Instructions .ROUTE .COMPLEX Qty: 30 RF: 5 ergocalciferol (vitamin D2) 1,250 mcg (50,000 unit) capsule See Rx Instructions .ROUTE .COMPLEX Qty: 4 RF: 5 omeprazole 20 mg capsule,delayed release(DR/EC) See Rx Instructions .ROUTE .COMPLEX Qty: 60 RF: 5 venlafaxine 150 mg capsule,extended release 24hr 150 mg PO DAILY Qty: 30 RF: 2 dextromethorphan-guaifenesin [Safe Tussin DM] 10-100 mg/5 mL liquid 10 ml PO Q6H PRN (Reason: Cough) RF: 0 sennosides [Senna Laxative] 8.6 mg tablet 8.6 mg PO DAILY RF: 0 docusate sodium [Colace] 100 mg capsule 100 mg PO DAILY RF: 0 magnesium citrate Solution 150 ml PO BID Qty: 296 RF: 0 Discharge Orders: Discharge Order (Routine); Ordered 02/28/21 Ordered By: Dwayne Sharma Referrals: Dwayne Sharma MD [Physician] - (Return to surgery office in 1 week with a repeat KUB) Ольга Quarles FNP [Primary Care Provider] - Discharge Diet: Advance as tolerated Discharge Activity: Increase activity as tolerated Patient Instructions: Opioid Safety Activity Restrictions/Additional Instructions: Raise the head of the bed 4-6 inches Frequent small meals through the day Avoid smoking or Chewing Tobacco Avoid excess coffee, tea, and other caffeinated beverages Avoid garments that fit tightly through the abdomen Avoid eating before going to sleep Avoid nonsteroidal anti-inflammatory drugs (NSAIDs) when possible Anti-reflux diet Anti-reflux medications as prescribed Emphasis on weight management Return to the emergency room for worsening abdominal pain nausea vomiting or hematemesis or hematochezia or unresolved fever or chills, Keep away foreign objects from the patient that can be readily swallowed Attestations Medical Necessity Statement*: Observation for IV fluid resuscitation and repeated physical examination Time Spent in Patient Care*: greater than 30 min Specific Discharge Activities: Specific discharge activities: educating patient and educating and/or supporting family/caregiver Status at Discharge: Cognitive status at discharge: cognitively intact, Behavioral status at discharge: cooperative, Functional status at discharge: independent ambulation Overall status at discharge: patient is progressing back to baseline Quality Metrics Clinical Quality Measures: During this hospital stay, did patient experience: None Coding Level of Care Code Acute Accounts Payable Representative for Chg Fwd Diagnoses Swallowed foreign body T18.9XXA Encounter type: initial encounter
--- NOTE | 2021-02-28 08:43 | ANE.PACU2 ---
Inpatient post-anesthesia follow up: Airway intact: Yes Vital signs: Temperature 97.4 F Pulse Rate 88 Respiratory Rate 18 Blood Pressure 122/70 Pulse Oximetry 98 Oxygen Delivery Me thod Room Air Oxygen Flow Rate Fraction of Inspir ed Oxygen Hydration adequate: Yes Nausea and vomiting: No Pain level: 1 Mental status: Baseline
--- NOTE | 2021-02-28 10:27 | W.PM.PSYCONS ---
Providers/Reason for Consult Consulting Physican/Specialty*: Rome Kendall MD. Psychiatry. Reason for Consult*: Evaluate for need for inpatient psychiatric care. Attending Physician: Dwayne Sharma MD Primary Care Provider: JACKIE Beverly Psych Consult HPI History of Present Illness Shelby Cherry is a 36 year old female who presented to the emergency department with the following report: Chief Complaint: Psychiatric Symptoms Stated Complaint: Swallow AA Batteries Time Seen by Provider: 02/27/21 21:11 Source: patient Mode of arrival: ambulatory Limitations: no limitations History of Present Illness: HPI Narrative: 36-year-old female who is very well-known to the ER its been here multiple multiple times for foreign body ingestions and attempts to harm herself she states that she had swallowed a AAA battery today she states she is having some depression was trying to harm her self. Denies any other ingestions patient is calm now states she is not currently suicidal denies any worsening proving factors denies any abdominal pain. Associated symptoms: Deny depression. She was brought to the emergency department for some of her lethality and to evaluate for this foreign body ingestion which is her general presentation and psychiatric consult was requested to determine need for acute/inpatient psychiatric services. Patient presents as she generally does with reports of suicidal thoughts, endorsing swallowing something is a suicide attempt and reporting that she is hearing voices. Conversations with staff as usual do not support any identifiable consistent changes but a regular day followed by a report and ingestion. This impulsivity is reflective of her diagnoses and her mental limitations as well as borderline personality disorder. There is nothing presentation that is any different than past interactions though she pleaded to be admitted as she usually does. He continued to have a consistent conversation advising her that if she had is with decreasing effectiveness of the medication that she should follow-up with her outpatient provider and work with her very intensive individual services versus admission to the hospital. She was advised to avoid future ingestions. Meds Home Medications and Allergies Home Medications Medication Instructions Recorded Confirmed Last Taken Type polyethylene glycol 3350 17 17 gm PO DAILY PRN #238 gm 07/02/19 02/28/21 08/12/19 Rx gram/dose oral powder (Miralax) acetaminophen 325 mg capsule 650 mg PO Q6H PRN #120 cap 03/16/20 02/28/21 Unknown Rx dextromethorphan-guaifenesin 10 10 ml PO Q6H PRN 05/05/21 01/09/22 Unknown History mg-100 mg/5 mL oral liquid (Safe Tussin DM) docusate sodium 100 mg capsule 100 mg PO DAILY 07/05/20 02/28/21 07/27/20 History (Colace) sennosides 8.6 mg tablet (Senna 8.6 mg PO DAILY 07/05/20 02/28/21 07/08/20 History Laxative) haloperidol 5 mg tablet 5 mg PO DAILY PRN #30 tab 10/30/20 02/28/21 Unknown Rx magnesium citrate 150 ml PO BID #296 ml 01/25/21 02/28/21 Unknown Rx levothyroxine 125 mcg tablet See Rx Instructions .ROUTE 02/08/21 02/28/21 Unknown Rx .COMPLEX #30 tablet ergocalciferol (vitamin D2) 1,250 See Rx Instructions .ROUTE 02/15/21 02/28/21 Unknown Rx mcg (50,000 unit) capsule .COMPLEX #4 cap omeprazole 20 mg capsule,delayed See Rx Instructions .ROUTE 02/15/21 02/28/21 Unknown Rx release .COMPLEX #60 capsule venlafaxine 150 mg 150 mg PO DAILY #30 cap 02/17/21 02/28/21 Unknown Rx capsule,extended release 24 hr clonazepam 0.5 mg tablet 0.5 mg PO TID #90 tab 02/22/21 02/28/21 Unknown Rx divalproex 500 mg tablet,extended 500 mg PO BID #60 tab 02/22/21 02/28/21 Unknown Rx release 24 hr (Depakote ER) quetiapine 100 mg tablet 200 mg PO BEDTIME #60 tab 02/22/21 02/28/21 Unknown Rx topiramate 100 mg tablet 100 mg PO BEDTIME #30 tab 02/22/21 02/28/21 Unknown Rx Allergies Allergy/AdvReac Type Severity Reaction Status Date / Time adhesive Allergy ALGY-Rash Verified 02/28/21 07:56 nitrofurantoin Allergy Unknown Verified 02/28/21 07:56 [From Macrobid] Penicillins Allergy Unknown Verified 02/28/21 07:56 BAND-AIDS Allergy Unknown Uncoded 02/28/21 07:56 TIDE DETERGENT Allergy Unknown Uncoded 02/28/21 07:56 Current Medications Current Medications Generic Name Dose Route Start Last Admin Trade Name Freq PRN Reason Stop Dose Admin Famotidine 20 mg 02/28/21 00:45 02/28/21 03:11 Famotidine 20 Mg/2 Ml Inj IVP 20 mg Q12H JONAH Administration Sodium Chloride 1,000 mls @ 30 mls/hr 02/27/21 22:30 02/28/21 03:11 Sodium Chloride 0.9% IV 30 mls/hr .Q24H JONAH Administration Sodium Chloride 1,000 mls @ 100 mls/hr 02/28/21 00:45 02/28/21 03:35 Sodium Chloride 0.9% IV Not Given .Q10H JONAH PFSH NPU PFSH: Medical History (Updated 03/18/21 @ 09:53 by Rome Kendall MD) Constipation H/O swallowed foreign body Hypothyroidism Major depressive disorder, recurrent severe without psychotic features Mental disability Post-traumatic stress disorder, chronic Psychiatric care Psychoses Surgical History H/O esophagogastroduodenoscopy (07/05/20) removal of FB History of cholecystectomy Social History Second hand smoke exposure: No Alcohol intake: never Caregiver/support person: Yes Lives independently: No Household members: other Details: LIVES IN A PRISON Housing: Assisted Living Facility Marital status: Single Current occupational status: disabled History of recent travel: No Current gender identity: Female Additional social history: Patient states that she grew up in [place]. She is currently living in a prison and is under guardianship. She enjoys playing games and eating hamburgers. She is despondent that there is no place in [place] where she can get a hamburger and does not know how to make one on her own. Mental Status Exam MSE Comments: This is an obese versus morbidly obese white female, with adequate dress, grooming, and limited eye contact. No abnormal movements except for mild psychomotor retardation. Cooperative with exam in no acute distress. Speech was decreased rate and volume. Mood described as depressed, affect subdued. Thought process, linear. Thought content: patient endorsed suicidal, but denied homicidal ideation, there were no delusions reported or noted, patient endorsed auditory but denied visual hallucinations. Attention, concentration appear intact and memory appeared unreliable but none were formally tested.? She is Alert and oriented times three. Insight and judgment are limited, impulse control is limited and intellectual ability is impaired. Vitals/I&O/Wt Last Vital Signs Temp 97.4 F L 02/28/21 00:50 Pulse 88 02/28/21 11:06 Resp 18 02/28/21 11:06 BP 122/70 02/28/21 00:50 Pulse Ox 98 02/28/21 11:06 02/27/21 02/28/21 02/28/21 22:59 06:59 14:59 Intake Total 2600 / 2600 600 / 600 Output Total 1999 / 1999 Balance 600 / 600 600 / 600 Weight last 48 hrs Weight 107.955 kg Weight 107.955 kg A&P Assessment and plan (1) H/O swallowed foreign body: Status: Acute (2) Suicidal ideation: Status: Acute (3) Borderline personality disorder: Status: Chronic (4) GERD (gastroesophageal reflux disease): Status: Acute (5) Well woman exam: Status: Acute (6) Encounter for counseling regarding contraception: Status: Acute (7) Left ankle pain: Status: Acute Qualifiers: Chronicity: acute Qualified Code(s): M25.572 - Pain in left ankle and joints of left foot (8) Post-traumatic stress disorder, chronic: Status: Acute (9) Seizure disorder: Status: Acute (10) Hypothyroidism: Status: Chronic Qualifiers: Hypothyroidism type: unspecified Qualified Code(s): E03.9 - Hypothyroidism, unspecified (11) Mild intellectual disabilities: Status: Chronic (12) Self-harming behavior: Status: Acute Additional A&P Information This is a 36-year-old white female with a long history of PTSD, borderline personality disorder and poor impulse control with intellectual disability mild versus moderate who presents as she normally does endorsing suicidal thoughts and reporting that she is hearing voices without any affective changes to accompany her report usually with a foreign body ingestion being reported as a suicide attempt. 1.? Continue current medication. 2.? Agree with surgical assessment for foreign body but no need for inpatient psychiatric services after medically cleared. 3. Refer to outpatient providers with whom she is current, for any medication changes 4. Given her mental deficiencies/intellectual disability and her often cluster B pathology inpatient hospitalizations are not effective means of changing outcomes in her treatment. Her presentation was of suicide attempts specifically attention seeking behavior in hopes of being hospitalized. There is no benefit to admission for the situation. Involuntary Hold Information 96 Hour Hold: 96 Hour Involuntary Admission: No 96 Hour Hold Ending Date: 08/19/19 96 Hour Hold Ending Time: 07:00 Attestations NPU Medical Necessity Statement*: N/A. Please see the primary team note for medical necessity but no need for acute/inpatient psychiatric services noted. Coding Level of Care Code Acute Sales Operations Director for Chg Fwd Diagnoses H/O swallowed foreign body Z87.821 Suicidal ideation R45.851 Borderline personality disorder F60.3 GERD (gastroesophageal reflux disease) K21.9 Well woman exam Z01.419 Encounter for counseling regarding contraception Z30.09 Left ankle pain M25.572 Chronicity: acute Post-traumatic stress disorder, chronic F43.12 Seizure disorder G40.909 Hypothyroidism E03.9 Hypothyroidism type: unspecified Mild intellectual disabilities F70 Self-harming behavior
[2021-02-28 11:06] VITALS: PULSE 88; RESP 18; O2SAT 98
--- NOTE | 2021-02-28 11:35 | PC.NURSE ---
pt tolerated clear liq diet well.discharge instructions given to primary neurocritical care physician.she verb understanding of instructions.discharged via w/c to exit at this time
== END 2021-02-28 11:37 | disposition home or self-care (01) ==
LOC: ER 21:51 → OPS 22:18 → CSU 02-28 02:14
PROVIDERS: Admitting Provider Surgery; Emergency Provider Emergency Medicine; PCP Nurse Practitioner Family; Visit Provider Surgery
DX: T18.9XXA Foreign body of alimentary tract, part unspecified, initial encounter (principal); E03.9 Hypothyroidism, unspecified
CPT/HCPCS: 43235; 71045; 74018; 96374; 99285; G0378; J0330; J1100; J2405; J2704; J3490; J7030

== ENCOUNTER 2021-03-03 10:22 | Outpatient (CLI) | payer MEDICAID, SELFPAY ==
--- NOTE | 2021-03-03 10:43 | XR_ITS ---
WS: [id number] ABDOMEN 1 VIEW(S) HISTORY: Persistent foreign body. COMPARISON: 02/28/2021. Normal bowel gas pattern. Foreign body previously described in the LEFT upper abdomen is no longer present. No obstructive meryl bi. Soft tissues are normal. No bone abnormality. XR/XR KUB [id number] IMPRESSION: Previously described foreign body is no longer apparent within the abdomen.
== END 2021-03-03 10:23 | disposition home or self-care (01) ==
PROVIDERS: PCP Nurse Practitioner Family; Visit Provider Surgery
DX: T18.9XXA Foreign body of alimentary tract, part unspecified, initial encounter (principal)
CPT/HCPCS: 74018

== ENCOUNTER 2021-03-15 16:30 | Day surgery (SDC) | payer MEDICAID, SELFPAY ==
--- NOTE | 2021-03-15 16:37 | XRR_ITS ---
PROCEDURE INFORMATION: Exam: XR Chest Exam date and time: 03/15/2021 4:37 PM Age: 36 years old Clinical indication: Screening exam; Other screening; Patient HX: Swallowed a paper binder clip; Additional info: Swallowed fb TECHNIQUE: Imaging protocol: XR of the chest. Views: 1 view. COMPARISON: CR XR chest 1V portable [id number] 02/27/2021 9:20 PM FINDINGS: Limitations: Limited chest x-ray with lateral view to identify radiopaque foreign body. Lungs: No evident consolidation. Pleural spaces: No pleural effusion. Heart/Mediastinum: The heart does not appear enlarged. Paper binder clip noted within the mid esophagus. Bones/joints: Visualized osseous structures appear intact. XR/XR chest 1V [id number] IMPRESSION: Paper binder clip noted within the mid esophagus.
--- NOTE | 2021-03-15 16:37 | XRR_ITS ---
PROCEDURE INFORMATION: Exam: XR Soft Tissue Neck Exam date and time: 03/15/2021 4:37 PM Age: 36 years old Clinical indication: Screening exam; Other; Swallowed a paper binder clip; Additional info: Swallowed fb TECHNIQUE: Imaging protocol: XR of the soft tissues of the neck. COMPARISON: CR XR soft tissue neck [id number] 04/29/2020 3:52 PM FINDINGS: Airway: Normal. No abnormal narrowing. Soft tissues: Normal. Normal epiglottis. Bones/joints: Unremarkable. Other findings: Paper binder clip located within the mid esophagus. XR/XR soft tissue neck [id number] IMPRESSION: Paper binder clip located within the mid esophagus.
[2021-03-15 16:44] VITALS: BP 123/77; PULSE 108; RESP 18; TEMP 36.7; O2SAT 98; BMI 42.1
--- NOTE | 2021-03-15 16:45 | ED_ITS ---
Documented by User: JACKIE Mitchell 03/15/21 16:45 HPI - General Adult General: Chief complaint: Airway/Esophagus Foreign Body Stated complaint: SWALLOWED A BINDER CLIP Time Seen by Provider: 03/15/21 22:25 History of Present Illness: HPI narrative: Patient is well-known to the ER and she states that she swallowed a binder clip today. She thinks it feels like it stuck in her throat. PFSH ED PFSH: Medical History Constipation H/O swallowed foreign body Hypothyroidism Major depressive disorder, recurrent severe without psychotic features Mental disability Post-traumatic stress disorder, chronic Psychiatric care Psychoses Surgical History H/O esophagogastroduodenoscopy (07/05/20) removal of FB History of cholecystectomy Social History Second hand smoke exposure: No Alcohol intake: never Caregiver/support person: Yes Lives independently: No Household members: other Details: LIVES IN A [facility] Housing: Assisted Living Facility Marital status: Single Current occupational status: disabled History of recent travel: No Current gender identity: Female Additional social history: Patient states that she grew up in [place]. She is currently living in a [facility] and is under guardianship. She enjoys playing games and eating hamburgers. She is despondent that there is no place in [place] where she can get a hamburger and does not know how to make one on her own. Female Reproductive History: Date of last menstrual period: 05/02/20 Course Vital Signs: Vital signs: Vital Signs Temperature 98.0 F 03/15/21 16:44 Pulse Rate 108 H 03/15/21 16:44 Respiratory Rate 18 03/15/21 16:44 Blood Pressure 123/77 03/15/21 16:44 Pulse Oximetry 98 03/15/21 16:44 Discharge Plan Discharge Patient Disposition: Admitted As Inpatient Clinical Impression: Swallowed foreign body Condition: Stable Prescriptions: No Action haloperidol 5 mg tablet 5 mg PO DAILY PRN (Reason: severe agitation) Qty: 30 RF: 1 topiramate 100 mg tablet 100 mg PO BEDTIME Qty: 30 RF: 2 quetiapine 100 mg tablet 200 mg PO BEDTIME Qty: 60 RF: 2 Depakote ER 500 mg tablet extended release 24 hr 500 mg PO BID Qty: 60 RF: 2 clonazepam 0.5 mg tablet 0.5 mg PO TID Qty: 90 RF: 2 polyethylene glycol 3350 [Miralax] 17 gram/dose powder 17 gm PO DAILY PRN (Reason: constipation) Qty: 238 RF: 2 acetaminophen 325 mg capsule 650 mg PO Q6H PRN (Reason: fever of 100.4 or greater and/or pain) Qty: 120 RF: 2 levothyroxine 125 mcg tablet See Rx Instructions .ROUTE .COMPLEX Qty: 30 RF: 5 ergocalciferol (vitamin D2) 1,250 mcg (50,000 unit) capsule See Rx Instructions .ROUTE .COMPLEX Qty: 4 RF: 5 omeprazole 20 mg capsule,delayed release(DR/EC) See Rx Instructions .ROUTE .COMPLEX Qty: 60 RF: 5 venlafaxine 150 mg capsule,extended release 24hr 150 mg PO DAILY Qty: 30 RF: 2 dextromethorphan-guaifenesin [Safe Tussin DM] 10-100 mg/5 mL liquid 10 ml PO Q6H PRN (Reason: Cough) RF: 0 sennosides [Senna Laxative] 8.6 mg tablet 8.6 mg PO DAILY RF: 0 docusate sodium [Colace] 100 mg capsule 100 mg PO DAILY RF: 0 magnesium citrate Solution 150 ml PO BID Qty: 296 RF: 0 Referrals: Ольаг Quarles FNP [Primary Care Provider] - Coding Level of Care Code ED Felt Hat Mellowing Machine Operator for Chg Fwd Documented by User: Omar Alicea MD 03/15/21 23:14 HPI - General Adult General: Chief complaint: Airway/Esophagus Foreign Body Stated complaint: SWALLOWED A BINDER CLIP Time Seen by Provider: 03/15/21 22:25 Source: patient Mode of arrival: ambulatory Limitations: no limitations History of Present Illness: HPI narrative: 36-year-old female is here after ingesting a foreign body patient is very well-known to ER has done this multiple times in the past. She states that earlier today she ingested a binder clip feels like it stuck in her throat states she does have pain she rates a 3 out of 10 no vomiting no diarrhea no worsening or improving factors. Associated symptoms: Deny chest pain, dyspnea, headache(s), nausea, rash or vomiting Review of Systems Const: Denies: fever(s), chills, body aches or change in appetite Eyes: Denies: blurry vision or eye discomfort ENMT: Denies: throat pain or dental pain Card: Denies: chest pain Resp: Denies: dyspnea GI: Denies: abdominal pain, nausea, vomiting or diarrhea : Denies: dysuria Musc: Denies: neck pain or back pain Skin/Breast: Denies: rash Neuro: Denies: headache(s) Psych: Denies: depression Hayden/Lymph: Denies: easy bruising All/Imm: Denies: urticaria PFSH ED PFSH: Medical History Constipation H/O swallowed foreign body Hypothyroidism Major depressive disorder, recurrent severe without psychotic features Mental disability Post-traumatic stress disorder, chronic Psychiatric care Psychoses Surgical History H/O esophagogastroduodenoscopy (07/05/20) removal of FB History of cholecystectomy Social History Second hand smoke exposure: No Alcohol intake: never Caregiver/support person: Yes Lives independently: No Household members: other Details: LIVES IN A [facility] Housing: Assisted Living Facility Marital status: Single Current occupational status: disabled History of recent travel: No Current gender identity: Female Additional social history: Patient states that she grew up in [place]. She is currently living in a [facility] and is under guardianship. She enjoys playing games and eating hamburgers. She is despondent that there is no place in [place] where she can get a hamburger and does not know how to make one on her own. Physical Exam Const: COMMON NORMALS: no acute distress, patient oriented x3 and healthy appearing HENMT: COMMON NORMALS: normocephalic and atraumatic HEAD & SCALP: normocephalic and atraumatic Eye: COMMON NORMALS: Equal, round and reactive pupils present and EOMs intact bilaterally PUPIL: Yes Equal, round and reactive pupils present Neck/C-Spine: COMMON NORMALS: full ROM and supple Chest: COMMONS NORMALS: normal inspection of the chest and normal palpation of entire chest wall Resp: COMMON NORMALS: normal respiratory effort, No retractions, No use of accessory muscles and clear to auscultation bilaterally AUSCULTATION: clear to auscultation bilaterally Cardio: COMMON NORMALS: regular rate, regular rhythm and No murmurs present (Cardio) RATE: regular rate RHYTHM: regular rhythm GI: COMMON NORMALS: Normal to inspection, nondistended, normoactive bowel sounds present, Soft to palpation, non-tender and no masses PALPATION: Yes Soft to palpation Extremity: COMMON NORMALS: normal to inspection and full ROM Neuro: COMMON NORMALS: patient oriented x3, moves all extremities and no focal motor deficits Psych: COMMON NORMALS: mental status grossly normal, Normal thought process present and cooperative THOUGHT PROCESS: Normal thought process present Skin: COMMON NORMALS: no rashes or lesions noted and no wounds GENERAL SKIN EXAM: no rashes or lesions noted Course Vital Signs: Vital signs: Vital Signs Temperature 98.0 F 03/15/21 16:44 Pulse Rate 108 H 03/15/21 16:44 Respiratory Rate 18 03/15/21 16:44 Blood Pressure 123/77 03/15/21 16:44 Pulse Oximetry 98 03/15/21 16:44 MDM - General Adult MDM Narrative: Medical decision making narrative: Patient presents with foreign body ingestion she does have a binder clip stuck in her esophagus she is no choking here is well-appearing here I spoke to Dr. Moreno originally who is on for GI and states he does not do esophageal foreign bodies. I did speak to Dr. Brizuela after that who agrees to come in at this time. Discharge Plan Discharge Patient Disposition: Admitted As Inpatient Clinical Impression: Swallowed foreign body Condition: Stable Prescriptions: No Action haloperidol 5 mg tablet 5 mg PO DAILY PRN (Reason: severe agitation) Qty: 30 RF: 1 topiramate 100 mg tablet 100 mg PO BEDTIME Qty: 30 RF: 2 quetiapine 100 mg tablet 200 mg PO BEDTIME Qty: 60 RF: 2 Depakote ER 500 mg tablet extended release 24 hr 500 mg PO BID Qty: 60 RF: 2 clonazepam 0.5 mg tablet 0.5 mg PO TID Qty: 90 RF: 2 polyethylene glycol 3350 [Miralax] 17 gram/dose powder 17 gm PO DAILY PRN (Reason: constipation) Qty: 238 RF: 2 acetaminophen 325 mg capsule 650 mg PO Q6H PRN (Reason: fever of 100.4 or greater and/or pain) Qty: 120 RF: 2 levothyroxine 125 mcg tablet See Rx Instructions .ROUTE .COMPLEX Qty: 30 RF: 5 ergocalciferol (vitamin D2) 1,250 mcg (50,000 unit) capsule See Rx Instructions .ROUTE .COMPLEX Qty: 4 RF: 5 omeprazole 20 mg capsule,delayed release(DR/EC) See Rx Instructions .ROUTE .COMPLEX Qty: 60 RF: 5 venlafaxine 150 mg capsule,extended release 24hr 150 mg PO DAILY Qty: 30 RF: 2 dextromethorphan-guaifenesin [Safe Tussin DM] 10-100 mg/5 mL liquid 10 ml PO Q6H PRN (Reason: Cough) RF: 0 sennosides [Senna Laxative] 8.6 mg tablet 8.6 mg PO DAILY RF: 0 docusate sodium [Colace] 100 mg capsule 100 mg PO DAILY RF: 0 magnesium citrate Solution 150 ml PO BID Qty: 296 RF: 0 Referrals: Ольга Quarles FNP [Primary Care Provider] - Coding Level of Care Code ED Felt Hat Mellowing Machine Operator for Lasha Turner
--- NOTE | 2021-03-15 21:58 | XRR_ITS ---
PROCEDURE INFORMATION: Exam: XR Chest Exam date and time: 03/15/2021 9:58 PM Age: 36 years old Clinical indication: Abnormal findings; Other: Foreign body re-eval; Additional info: Recheck swallowed foreign body TECHNIQUE: Imaging protocol: XR of the chest. Views: 1 view. COMPARISON: CR XR acute abdomen series [id number] 03/15/2021 4:49 PM FINDINGS: Lungs: Unremarkable. No consolidation. Pleural spaces: Unremarkable. No pleural effusion. No pneumothorax. Heart/Mediastinum: Unremarkable. No cardiomegaly. Bones/joints: Unremarkable. Soft tissues: Foreign body consistent with the appearance of a paper clip measuring up to 3.9 cm is seen in the upper mid thorax, likely within the esophagus. XR/XR chest 1V portable [id number] IMPRESSION: Foreign body consistent with the appearance of a paper clip measuring up to 3.9 cm is seen in the upper mid thorax, likely within the esophagus.
[2021-03-15 23:41] VITALS: BP 115/57; PULSE 96; RESP 18; TEMP 36.6; O2SAT 99
--- NOTE | 2021-03-15 23:42 | P.ANESASSM_ITS ---
Pre-Anesthetic Assessment Pre-Anesthetic Assessment: Height/Weight: Height 1.6 m Weight 107.864 kg Temp Pulse Resp BP Pulse Ox 98.0 F 108 H 18 123/77 98 03/15/21 16:44 03/15/21 16:44 03/15/21 16:44 03/15/21 16:44 03/15/21 16:44 Preop Diagnosis: Swallowed foreign body Proposed Procedure: Operation Date: 03/15/21 23:30 Proposed Procedures p EGD(Not Applicable) - Terence Brizuela MD Was Beta Cecilia taken within 24 hours: N/A Was Clonidine taken within 24 hours: N/A Social: Social History: No alcohol and No tobacco Exam: Pre-Anes Outpt Exam: alert, oriented x 3, clear to auscultation bilaterally and regular rate & rhythm Airway: Submandibular: WNL Cervical ROM: WNL MP: 2 Dentition: Chipped History/ROS: No significant history except as noted Pulmonary: Pulmonary: CORCORAN CV/HEM: CV/HEM: None reported : : None reported Hepatic: Hepatic: None reported GI: GI: GERD Metabolic: Metabolic: Morbid obesity and Thyroid Musc/skel: Musc/skel: None reported Neuropsych: Comments: Limited cognitive ability PTSD Anesthetic Plan: ASA status: 3 (Morbidly obese female with hx of recurrent foreign body ingestion, hypothyroidism, S and I) Anesthesia: Anesthesia Evaluation and General Risk of > 500 ml blood loss (7ml/kg in children): No PFSH Anesthesia PFSH: Medical History Constipation H/O swallowed foreign body Hypothyroidism Major depressive disorder, recurrent severe without psychotic features Mental disability Post-traumatic stress disorder, chronic Psychiatric care Psychoses Surgical History H/O esophagogastroduodenoscopy (07/05/20) removal of FB History of cholecystectomy Social History Second hand smoke exposure: No Alcohol intake: never Caregiver/support person: Yes Lives independently: No Household members: other Details: LIVES IN A SNF Housing: Assisted Living Facility Marital status: Single Current occupational status: disabled History of recent travel: No Current gender identity: Female Additional social history: Patient states that she grew up in [place]. She is currently living in a retirement and is under guardianship. She enjoys playing games and eating hamburgers. She is despondent that there is no place in [place] where she can get a hamburger and does not know how to make one on her own. Female Reproductive History: Date of last menstrual period: 05/02/20 Data Anesthesia Cardiac Studies: No Data to Display
[2021-03-15] MEDS: sodium chloride 0.9% 1,000 ML 30 ML IV (23:45)
--- NOTE | 2021-03-15 23:47 | ANE.PACU2 ---
Inpatient post-anesthesia follow up: Vital signs: Temperature 98.0 F Pulse Rate 108 Respiratory Rate 18 Blood Pressure 123/77 Pulse Oximetry 98 Oxygen Delivery Me thod Room Air Oxygen Flow Rate Fraction of Inspir ed Oxygen
--- NOTE | 2021-03-15 23:48 | P.CONIM_ITS ---
Providers/Reason For Consult Consulting Physician/Specialty*: Endoscopy Reason for Consult*: Presumed ingestion of a large paperclip Attending Physician: Terence Brizuela MD Primary Care Provider: JACKIE Beverly History of Present Illness History of Present Illness Shelby Cherry is a 36 year old female who present to the emergency department by virtue of swallowing a large paperclip-like device. The physician on-call Dr. Moreno was consulted, but refused to see her. I am called as a backup plan. She apparently has a long history of swallowing foreign bodies in either being in her stomach or lodging in her esophagus. She has some developmental delays and is unclear why she swallowed said paperclip, save for that she was mad. She feels like it stuck in her esophagus, and the radiographs play that out. Medications/Allergies Home Medications Medication Instructions Recorded Confirmed Last Taken Type polyethylene glycol 3350 17 17 gm PO DAILY PRN #238 gm 07/02/19 02/28/21 08/12/19 Rx gram/dose oral powder acetaminophen 325 mg capsule 650 mg PO Q6H PRN #120 cap 03/16/20 02/28/21 Unknown Rx dextromethorphan-guaifenesin [Safe 10 ml PO Q6H PRN 06/24/20 02/28/21 Unknown History Tussin DM] docusate sodium [Colace] 100 mg PO DAILY 07/05/20 02/28/21 07/27/20 History sennosides [Senna Laxative] 8.6 mg PO DAILY 07/05/20 02/28/21 07/08/20 History haloperidol 5 mg tablet 5 mg PO DAILY PRN #30 tab 10/30/20 02/28/21 Unknown Rx magnesium citrate 150 ml PO BID #296 ml 01/25/21 02/28/21 Unknown Rx levothyroxine 125 mcg tablet See Rx Instructions .ROUTE 02/08/21 02/28/21 Unkn own Rx .COMPLEX #30 tablet ergocalciferol (vitamin D2) 1,250 See Rx Instructions .ROUTE 02/15/21 02/28/21 Unknown Rx mcg (50,000 unit) capsule .COMPLEX #4 cap omeprazole 20 mg capsule,delayed See Rx Instructions .ROUTE 02/15/21 02/28/21 Unknown Rx release .COMPLEX #60 capsule venlafaxine 150 mg 150 mg PO DAILY #30 cap 02/17/21 02/28/21 Unknown Rx capsule,extended release 24 hr clonazepam 0.5 mg tablet 0.5 mg PO TID #90 tab 02/22/21 02/28/21 Unknown Rx divalproex 500 mg tablet,extended 500 mg PO BID #60 tab 02/22/21 02/28/21 Unknown Rx release 24 hr quetiapine 100 mg tablet 200 mg PO BEDTIME #60 tab 02/22/21 02/28/21 Unknown Rx topiramate 100 mg tablet 100 mg PO BEDTIME #30 tab 02/22/21 02/28/21 Unknown Rx Allergies Allergy/AdvReac Type Severity Reaction Status Date / Time adhesive Allergy ALGY-Rash Verified 02/28/21 07:56 nitrofurantoin Allergy Unknown Verified 02/28/21 07:56 [From Macrobid] Penicillins Allergy Unknown Verified 02/28/21 07:56 BAND-AIDS Allergy Unknown Uncoded 02/28/21 07:56 TIDE DETERGENT Allergy Unknown Uncoded 02/28/21 07:56 PFSH Acute PFSH: Medical History (Updated 03/15/21 @ 23:49 by Terence Brizuela MD) Constipation H/O swallowed foreign body Hypothyroidism Major depressive disorder, recurrent severe without psychotic features Mental disability Post-traumatic stress disorder, chronic Psychiatric care Psychoses Surgical History H/O esophagogastroduodenoscopy (07/05/20) removal of FB History of cholecystectomy Social History Second hand smoke exposure: No Alcohol intake: never Caregiver/support person: Yes Lives independently: No Household members: other Details: LIVES IN A LONG-TERM Housing: Assisted Living Facility Marital status: Single Current occupational status: disabled History of recent travel: No Current gender identity: Female Additional social history: Patient states that she grew up in [place]. She is currently living in a snf and is under guardianship. She enjoys playing games and eating hamburgers. She is despondent that there is no place in [place] where she can get a hamburger and does not know how to make one on her own. Female Reproductive History: Date of last menstrual period: 05/02/20 Vitals/I&O/Wt Last Vital Signs Temp 98.0 F 03/15/21 16:44 Pulse 108 H 03/15/21 16:44 Resp 18 03/15/21 16:44 BP 123/77 03/15/21 16:44 Pulse Ox 98 03/15/21 16:44 Weight last 48 hrs Weight 237 lb 12.8 oz A&P Assessment and plan (1) H/O swallowed foreign body: We will plan on an EGD to remove said foreign body. Status: Acute Coding Level of Care Code Acute Radio Communication Coordinator for Chg Fwd Diagnoses H/O swallowed foreign body Z87.821
[2021-03-16] VITALS (8 sets, daily range): BP systolic 111–138; BP diastolic 65–79; PULSE 90–113; RESP 16–22; TEMP 36.4–36.7; O2SAT 92–97
--- NOTE | 2021-03-16 00:22 | P.PCN_ITS ---
PACU note PACU note: VSS, Good respiratory effort, report to [facility] Post-Anesthesia Exam: awake
--- NOTE | 2021-03-16 00:22 | PM.PACU ---
PACU note PACU note: VSS, Good respiratory effort, report to [facility] Post-Anesthesia Exam: awake
--- NOTE | 2021-03-16 08:09 | ANE.PACU2 ---
Inpatient post-anesthesia follow up: Airway intact: Yes Vital signs: Temperature 98.0 F Pulse Rate 99 Respiratory Rate 19 Blood Pressure 111/73 Pulse Oximetry 95 Oxygen Delivery Me thod Room Air Oxygen Flow Rate 6 Fraction of Inspir ed Oxygen Hydration adequate: Yes Nausea and vomiting: No Pain level: 1 Mental status: Baseline
== END 2021-03-16 01:15 | disposition home or self-care (01) ==
LOC: ER 23:14 → GILAB 23:40
PROVIDERS: Emergency Provider Emergency Medicine; PCP Nurse Practitioner Family; Visit Provider Internal Medicine
PROC: 0DJ08ZZ Inspection of Upper Intestinal Tract, Via Natural or Artificial Opening Endoscopic (ICD-10-PCS; CPT 43235; principal; 2021-03-15 23:30)
DX: T18.198A Other foreign object in esophagus causing other injury, initial encounter (principal); X79.XXXA Intentional self-harm by blunt object, initial encounter; E03.9 Hypothyroidism, unspecified; F33.9 Major depressive disorder, recurrent, unspecified
CPT/HCPCS: 43247; 70360; 71045; 74022; J0330; J1100; J2405; J2704; J3010; J3490; J7030

== ENCOUNTER → 2021-03-22 11:14 | Outpatient (BNVA) | payer MEDICAID, SELFPAY | PROVIDERS: PCP Nurse Practitioner Family; Visit Provider Nurse Practitioner | DX: F43.12 Post-traumatic stress disorder, chronic (principal); F70 Mild intellectual disabilities; F60.3 Borderline personality disorder | CPT/HCPCS: 99214 ==

== ENCOUNTER 2021-03-22 15:41 | Emergency (ER) | payer MEDICAID, SELFPAY ==
--- NOTE | 2021-03-22 15:49 | XRR_ITS ---
PROCEDURE INFORMATION: Exam: XR Abdomen Exam date and time: 03/22/2021 3:49 PM Age: 36 years old Clinical indication: Other: Swallowed a tack; Additional info: Reports swallowing a tack TECHNIQUE: Imaging protocol: XR of the abdomen. Views: Frontal supine view of the abdomen. 1 View. COMPARISON: CR XR KUB [id number] 03/03/2021 11:22 AM FINDINGS: Gastrointestinal tract: Metallic tack measuring roughly 1 cm in size. Due to overlapping bowel it is either in the proximal duodenum or proximal transverse colon. Bones/joints: Unremarkable. XR/XR KUB [id number] IMPRESSION: Metallic tack noted measuring roughly 1 cm in size. Due to overlapping bowel loops, it is either located in the proximal duodenum or proximal transverse colon.
--- NOTE | 2021-03-22 18:11 | ED_ITS ---
HPI - General Adult General: Stated complaint: swallowed a tack Time Seen by Provider: 03/22/21 18:11 Source: patient Mode of arrival: ambulatory Limitations: no limitations History of Present Illness: 36-year-old female who is very well-known to the ER states that she had swallowed a tack today. Patient swallowed multiple foreign bodies in the past she has no pain currently denies any vomiting or diarrhea denies any abdominal pain. Associated symptoms: Deny chest pain, dyspnea, headache(s), nausea, rash or vomiting Review of Systems Const: Denies: fever(s), chills, body aches or change in appetite Eyes: Denies: blurry vision or eye discomfort ENMT: Denies: throat pain or dental pain Card: Denies: chest pain Resp: Denies: dyspnea GI: Denies: abdominal pain, nausea, vomiting or diarrhea : Denies: dysuria Musc: Denies: neck pain or back pain Skin/Breast: Denies: rash Neuro: Denies: headache(s) Psych: Denies: depression Hayden/Lymph: Denies: easy bruising All/Imm: Denies: urticaria PFSH ED PFSH: Medical History (Updated 03/22/21 @ 18:12 by Omar Alicea MD) Constipation H/O swallowed foreign body Hypothyroidism Major depressive disorder, recurrent severe without psychotic features Mental disability Post-traumatic stress disorder, chronic Psychiatric care Psychoses Surgical History H/O esophagogastroduodenoscopy (07/05/20) removal of FB History of cholecystectomy Social History Second hand smoke exposure: No Alcohol intake: never Caregiver/support person: Yes Lives independently: No Household members: other Details: LIVES IN A SENIOR LIVING Housing: Assisted Living Facility Marital status: Single Current occupational status: disabled History of recent travel: No Current gender identity: Female Additional social history: Patient states that she grew up in [place]. She is currently living in a retirement and is under guardianship. She enjoys playing games and eating hamburgers. She is despondent that there is no place in [place] where she can get a hamburger and does not know how to make one on her own. Female Reproductive History: Date of last menstrual period: 05/02/20 Physical Exam Const: COMMON NORMALS: no acute distress, patient oriented x3 and healthy appearing HENMT: COMMON NORMALS: normocephalic and atraumatic HEAD & SCALP: normocephalic and atraumatic Eye: COMMON NORMALS: Equal, round and reactive pupils present and EOMs intact bilaterally PUPIL: Yes Equal, round and reactive pupils present Neck/C-Spine: COMMON NORMALS: full ROM and supple Chest: COMMONS NORMALS: normal inspection of the chest and normal palpation of entire chest wall Resp: COMMON NORMALS: normal respiratory effort, No retractions, No use of accessory muscles and clear to auscultation bilaterally AUSCULTATION: clear to auscultation bilaterally Cardio: COMMON NORMALS: regular rate, regular rhythm and No murmurs present (Cardio) RATE: regular rate RHYTHM: regular rhythm GI: COMMON NORMALS: Normal to inspection, nondistended, normoactive bowel sounds present, Soft to palpation, non-tender and no masses PALPATION: Yes Soft to palpation Extremity: COMMON NORMALS: normal to inspection and full ROM Neuro: COMMON NORMALS: patient oriented x3, moves all extremities and no focal motor deficits Psych: COMMON NORMALS: mental status grossly normal, Normal thought process present and cooperative THOUGHT PROCESS: Normal thought process present Skin: COMMON NORMALS: no rashes or lesions noted and no wounds GENERAL SKIN EXAM: no rashes or lesions noted [facility] - General Adult Medical Decision Making Patient presents with a swallowed foreign body tach is noted in her intestines on KUB she has no pain no signs of perforated bowel I spoke to Dr. Sharma who is going to follow her later in the week and have a repeat KUB she is return if she has any worsening pain caregiver understands agrees to plan. Lab Data Radiology Impressions KUB X-Ray 03/22/21 15:49 IMPRESSION: Metallic tack noted measuring roughly 1 cm in size. Due to overlapping bowel loops, it is either located in the proximal duodenum or proximal transverse colon. Discharge Plan Discharge Patient Disposition: Home Clinical Impression: Swallowed foreign body Condition: Stable Prescriptions: No Action haloperidol 5 mg tablet 5 mg PO DAILY PRN (Reason: severe agitation) Qty: 30 1RF topiramate 100 mg tablet 100 mg PO BEDTIME Qty: 30 2RF quetiapine 100 mg tablet 200 mg PO BEDTIME Qty: 60 2RF Depakote ER 500 mg tablet extended release 24 hr 500 mg PO BID Qty: 60 2RF clonazepam 0.5 mg tablet 0.5 mg PO TID Qty: 90 2RF venlafaxine [Effexor XR] 75 mg capsule,extended release 24hr 75 mg PO DAILY Qty: 14 0RF Rx Instructions: Take 1 tab daily for 2 weeks and then stop fluvoxamine 50 mg tablet 50 mg PO DAILY Qty: 30 1RF polyethylene glycol 3350 [Miralax] 17 gram/dose powder 17 gm PO DAILY PRN (Reason: constipation) Qty: 238 2RF acetaminophen 325 mg capsule 650 mg PO Q6H PRN (Reason: fever of 100.4 or greater and/or pain) Qty: 120 2RF Rx Instructions: Not to exceed 4,000 mg in 24 hr levothyroxine 125 mcg tablet See Rx Instructions .ROUTE .COMPLEX Qty: 30 5RF Dose Instruction: TAKE ONE TABLET BY MOUTH EVERY DAY AT 8am Rx Instructions: TAKE ONE TABLET BY MOUTH EVERY DAY AT 8am ergocalciferol (vitamin D2) 1,250 mcg (50,000 unit) capsule See Rx Instructions .ROUTE .COMPLEX Qty: 4 5RF Dose Instruction: TAKE ONE CAPSULE BY MOUTH ONCE WEEKLY Rx Instructions: TAKE ONE CAPSULE BY MOUTH ONCE WEEKLY omeprazole 20 mg capsule,delayed release(DR/EC) See Rx Instructions .ROUTE .COMPLEX Qty: 60 5RF Dose Instruction: TAKE ONE CAPSULE BY MOUTH TWICE DAILY AT 8am AND 8pm Rx Instructions: TAKE ONE CAPSULE BY MOUTH TWICE DAILY AT 8am AND 8pm dextromethorphan-guaifenesin [Safe Tussin DM] 10-100 mg/5 mL liquid 10 ml PO Q6H PRN (Reason: Cough) 0RF sennosides [Senna Laxative] 8.6 mg tablet 8.6 mg PO DAILY 0RF docusate sodium [Colace] 100 mg capsule 100 mg PO DAILY 0RF magnesium citrate Solution 150 ml PO BID Qty: 296 0RF Rx Instructions: times 3 doses Discharge Orders: Discharge ED (Routine); Ordered 03/22/21 Ordered By: Omar Alicea Referrals: Dwayne Sharma MD [Physician] - 1-3 days Ольга Quarles FNP [Primary Care Provider] - Discharge Diet: Advance as tolerated Discharge Activity: Resume usual activity Patient Instructions: Foreign Body - Swallowed Coding Level of Care Code ED [place]ger for Lasha Turner
[2021-03-22 18:20] VITALS: BP 118/83; PULSE 99; RESP 16; TEMP 36.7; O2SAT 98; BMI 42.3
[2021-03-22 18:26] VITALS: BP 118/83; PULSE 99; RESP 16; TEMP 36.7; O2SAT 99
--- NOTE | 2021-03-23 07:46 | DCPLANNER ---
Addendum entered by Swapna Tinajero 04/16/21 12:47: Patient had a follow up appointment scheduled with General Surgery - appointment was cancelled. Addendum entered by Swapna Tinajero 03/30/21 08:12: Patient has a follow up appointment scheduled for Monday, April 05, 2021 at 10:[address] Harrington at general surgery. Clinic will call patient with appointment information. Original Note: manager business operations had message to schedule a follow up appointment for patient with general surgery. manager business operations emailed patients information to the Maye Thompson and Angelica at [facility] General Surgery / ENT clinic. Patients information will be printed and reviewed. Clinic will call patient with appointment information.
== END 2021-03-22 18:28 | disposition home or self-care (01) ==
PROVIDERS: Emergency Provider Emergency Medicine; PCP Nurse Practitioner Family
DX: T18.9XXA Foreign body of alimentary tract, part unspecified, initial encounter (principal); X58.XXXA Exposure to other specified factors, initial encounter
CPT/HCPCS: 74018; 99282

== ENCOUNTER 2021-03-23 11:01 | Outpatient (CLI) | payer MEDICAID, SELFPAY ==
--- NOTE | 2021-03-23 11:15 | XR_ITS ---
WS: [id number] XR KUB [id number] REASON FOR EXAM: Z87.821 - Personal history of retained foreign body fully... FINDINGS: Small metallic foreign body, nail-like in appearance, has moved from the hepatic flexure region (03/22) to the left mid pelvis in the region of the rectosigmoid colon. Mildly gaseously distended loops of small bowel throughout the abdomen, nonspecific. XR/XR KUB [id number] IMPRESSION: Presumed movement of the metallic foreign body from the hepatic flexure to the rectosigmoid colon.
== END 2021-03-23 11:02 | disposition home or self-care (01) ==
LOC: RAD 11:07
PROVIDERS: PCP Nurse Practitioner Family; Visit Provider Nurse Practitioner Family
DX: Z87.821 Personal history of retained foreign body fully removed (principal)
CPT/HCPCS: 74018

== ENCOUNTER → 2021-04-19 11:14 | Outpatient (BNVA) | payer MEDICAID, SELFPAY | PROVIDERS: PCP Nurse Practitioner Family; Visit Provider Nurse Practitioner | DX: F43.12 Post-traumatic stress disorder, chronic (principal); F70 Mild intellectual disabilities; F60.3 Borderline personality disorder | CPT/HCPCS: 99214 ==

== ENCOUNTER → 2021-05-17 08:44 | Outpatient (BNVA) | payer MEDICAID, SELFPAY | PROVIDERS: PCP Nurse Practitioner Family; Visit Provider Nurse Practitioner | DX: F43.12 Post-traumatic stress disorder, chronic (principal); F70 Mild intellectual disabilities; F60.3 Borderline personality disorder | CPT/HCPCS: 99214 ==

== ENCOUNTER → 2021-06-14 08:13 | Outpatient (BNVA) | payer MEDICAID, SELFPAY | PROVIDERS: PCP Nurse Practitioner Family; Visit Provider Nurse Practitioner | DX: F43.12 Post-traumatic stress disorder, chronic (principal); F60.3 Borderline personality disorder; F70 Mild intellectual disabilities | CPT/HCPCS: 99214 ==

== ENCOUNTER 2021-06-27 10:53 | Emergency (ER) | payer MEDICAID, SELFPAY ==
[2021-06-27 10:55] VITALS: BP 123/82; PULSE 108; RESP 18; TEMP 36.7; O2SAT 99
--- NOTE | 2021-06-27 10:56 | XRR_ITS ---
PROCEDURE INFORMATION: Exam: XR Abdomen Exam date and time: 06/27/2021 11:05 AM Age: 36 years old Clinical indication: Other: Looking for a battery; Additional info: Fb TECHNIQUE: Imaging protocol: XR of the abdomen. Views: Frontal supine view of the abdomen. 1 View. COMPARISON: CR XR KUB [id number] 03/23/2021 11:50 AM FINDINGS: Gastrointestinal tract: Normal. No bowel dilation. Bones/joints: Unremarkable. Soft tissues: No radiopaque foreign body is identified. XR/XR KUB [id number] IMPRESSION: No radiopaque foreign body is identified.
--- NOTE | 2021-06-27 11:05 | ED.C_ITS ---
HPI - Psych General: Chief Complaint: Psychiatric Symptoms Stated Complaint: Swollowed a battery Time Seen by Provider: 06/27/21 10:58 Source: patient Mode of arrival: ambulatory Limitations: no limitations History of Present Illness: 36-year-old female who is very well-known to the ER has had multiple visits here after swallowing foreign objects. She states that she had swallowed a battery last night. Unsure what type of battery she is denied any pain she had no vomiting or diarrhea. Denies any worsening improving factors. Associated symptoms: Deny depression Review of Systems Const: Denies: fever(s), chills, body aches or change in appetite Eyes: Denies: blurry vision or eye discomfort ENMT: Denies: throat pain or dental pain Card: Denies: chest pain Resp: Denies: dyspnea GI: Denies: abdominal pain, nausea, vomiting or diarrhea : Denies: dysuria Musc: Denies: neck pain or back pain Skin/Breast: Denies: rash Neuro: Denies: headache(s) Psych: Denies: depression Hayden/Lymph: Denies: easy bruising All/Imm: Denies: urticaria PFSH ED PFSH: Medical History Constipation H/O swallowed foreign body Hypothyroidism Major depressive disorder, recurrent severe without psychotic features Mental disability Post-traumatic stress disorder, chronic Psychiatric care Psychoses Surgical History H/O esophagogastroduodenoscopy (07/05/20) removal of FB History of cholecystectomy Social History Smoking and tobacco status: never smoked Second hand smoke exposure: No Alcohol intake: never Caregiver/support person: Yes Lives independently: No Household members: other Details: LIVES IN A INTERMEDIATE Housing: Assisted Living Facility Marital status: Single Current occupational status: disabled History of recent travel: No Current gender identity: Female Additional social history: Patient states that she grew up in [place]. She is currently living in a usp and is under guardianship. She enjoys playing games and eating hamburgers. She is despondent that there is no place in [place] where she can get a hamburger and does not know how to make one on her own. Female Reproductive History: Date of last menstrual period: 05/02/20 Physical Exam Const: COMMON NORMALS: no acute distress, patient oriented x3 and healthy appearing HENMT: COMMON NORMALS: normocephalic and atraumatic HEAD & SCALP: normocephalic and atraumatic Eye: COMMON NORMALS: Equal, round and reactive pupils present and EOMs intact bilaterally PUPIL: Yes Equal, round and reactive pupils present Neck/C-Spine: COMMON NORMALS: full ROM and supple Chest: COMMONS NORMALS: normal inspection of the chest and normal palpation of entire chest wall Resp: COMMON NORMALS: normal respiratory effort, No retractions, No use of accessory muscles and clear to auscultation bilaterally AUSCULTATION: clear to auscultation bilaterally Cardio: COMMON NORMALS: regular rate, regular rhythm and No murmurs present (Cardio) RATE: regular rate RHYTHM: regular rhythm GI: COMMON NORMALS: Normal to inspection, nondistended, normoactive bowel sounds present, Soft to palpation, non-tender and no masses PALPATION: Yes Soft to palpation Extremity: COMMON NORMALS: normal to inspection and full ROM Neuro: COMMON NORMALS: patient oriented x3, moves all extremities and no focal motor deficits Psych: COMMON NORMALS: mental status grossly normal, Normal thought process present and cooperative THOUGHT PROCESS: Normal thought process present Skin: COMMON NORMALS: no rashes or lesions noted and no wounds GENERAL SKIN EXAM: no rashes or lesions noted Course Vital Signs: Vital signs: Vital Signs Temperature 98.1 F 06/27/21 10:55 Pulse Rate 96 06/27/21 11:33 Respiratory Rate 16 06/27/21 11:33 Blood Pressure 141/80 06/27/21 11:33 Pulse Oximetry 100 06/27/21 11:33 [facility] - Psych Medical Decision Making Lower presents here with a suppose foreign bodies swallowed. X-ray here shows no signs of a swallowed foreign body she likely did not swallow anything if she could have already passed it. She does have some depression her caregiver does not believe she needs to be admitted to psych facility I know neither also spoke to psychiatrist Dr. Kendall who knows her very well who is in agreement as well we will get her [facility] follow-up she is return if worsening. Discharge Plan Discharge Patient Disposition: Home Clinical Impression: H/O swallowed foreign body, Depression Condition: Stable Prescriptions: No Action haloperidol 5 mg tablet 5 mg PO DAILY PRN (Reason: severe agitation) Qty: 30 1RF quetiapine 100 mg tablet 200 mg PO BEDTIME Qty: 60 2RF topiramate 100 mg tablet 100 mg PO BEDTIME Qty: 30 2RF Depakote ER 500 mg tablet extended release 24 hr 500 mg PO BID Qty: 60 2RF clonazepam 0.5 mg tablet 0.5 mg PO TID Qty: 90 2RF fluvoxamine 100 mg tablet 100 mg PO BID Qty: 60 2RF acetaminophen 325 mg capsule 650 mg PO Q6H PRN (Reason: fever of 100.4 or greater and/or pain) Qty: 120 2RF Rx Instructions: Not to exceed 4,000 mg in 24 hr levothyroxine 125 mcg tablet See Rx Instructions .ROUTE .COMPLEX Qty: 30 5RF Dose Instruction: TAKE ONE TABLET BY MOUTH EVERY DAY AT 8am Rx Instructions: TAKE ONE TABLET BY MOUTH EVERY DAY AT 8am ergocalciferol (vitamin D2) 1,250 mcg (50,000 unit) capsule See Rx Instructions .ROUTE .COMPLEX Qty: 4 5RF Dose Instruction: TAKE ONE CAPSULE BY MOUTH ONCE WEEKLY Rx Instructions: TAKE ONE CAPSULE BY MOUTH ONCE WEEKLY omeprazole 20 mg capsule,delayed release(DR/EC) See Rx Instructions .ROUTE .COMPLEX Qty: 60 5RF Dose Instruction: TAKE ONE CAPSULE BY MOUTH TWICE DAILY AT 8am AND 8pm Rx Instructions: TAKE ONE CAPSULE BY MOUTH TWICE DAILY AT 8am AND 8pm dextromethorphan-guaifenesin [Safe Tussin DM] 10-100 mg/5 mL liquid See Rx Instructions .ROUTE .COMPLEX Qty: 500 0RF Dose Instruction: take 10ml BY MOUTH EVERY 6 HOURS NEEDED FOR cough Rx Instructions: take 10ml BY MOUTH EVERY 6 HOURS NEEDED FOR cough polyethylene glycol 3350 [Miralax] 17 gram/dose powder 17 g PO DAILY PRN (Reason: constipation) Qty: 238 2RF sennosides [Senna Laxative] 8.6 mg tablet 8.6 mg PO DAILY 0RF docusate sodium [Colace] 100 mg capsule 100 mg PO DAILY 0RF Label Comments: pt no longer taking magnesium citrate Solution 150 ml PO BID Qty: 296 0RF Rx Instructions: times 3 doses Discharge Orders: Discharge ED (Routine); Ordered 06/27/21 Ordered By: Omar Alicea Referrals: [facility], [Staff Physician] - 1-3 days Ольга Quarles FNP [Primary Care Provider] - Patient Instructions: Depression (ED) Coding Level of Care Code ED Police Officer Booking for Chg Fwd Exam Comprehensive
[2021-06-27 11:30] VITALS: BP 141/80; PULSE 96; RESP 16; O2SAT 100
[2021-06-27 11:33] VITALS: BP 141/80; PULSE 96; RESP 16; O2SAT 100
== END 2021-06-27 11:35 | disposition home or self-care (01) ==
PROVIDERS: Emergency Provider Emergency Medicine; PCP Nurse Practitioner Family
DX: T18.9XXA Foreign body of alimentary tract, part unspecified, initial encounter (principal); X58.XXXA Exposure to other specified factors, initial encounter; F32.A Depression, unspecified
CPT/HCPCS: 74018; 99283

== ENCOUNTER 2021-06-28 10:49 | Emergency (ER) | payer MEDICAID, SELFPAY ==
[2021-06-28 11:46] VITALS: BP 125/87; PULSE 110; RESP 14; TEMP 36.5; O2SAT 98; BMI 37.4
--- NOTE | 2021-06-28 12:03 | XR_ITS ---
WS: [id number] XR KUB portable [id number] REASON FOR EXAM: swallowed foreign object? FINDINGS: Tubular radiodense foreign body over the mid lower abdomen, S1 level. Differentiation between locatio n in distal small bowel or redundant sigmoid colon cannot be made. The object measures approximately 48 mm in length and 14 mm in diameter. The configuration suggests a battery. This foreign body was not present on the examination of the previous day. No free air or retroperitoneal air. No findings of bowel obstruction. XR/XR KUB portable [id number] IMPRESSION: Foreign body as above.
--- NOTE | 2021-06-28 12:03 | XR_ITS ---
WS: [email or web address] XR chest 1V portable [id number] REASON FOR EXAM: swallowed battery? FINDINGS: The heart and mediastinum are within normal limits. No radiopaque foreign body identified along the c ourse of the esophagus. Calcified granulomatous disease. No acute pulmonary parenchymal or pleural abnormality. Bony thorax is intact with mild degenerative changes in the mid and lower thoracic spine. No radiopaque foreign body overlies the region of the stomach. XR/XR chest 1V portable [id number] IMPRESSION: No significant abnormality.
--- NOTE | 2021-06-28 12:07 | ED.C_ITS ---
HPI - Psych General: Chief Complaint: Psychiatric Symptoms Stated Complaint: swallowed AAA battery Time Seen by Provider: 06/28/21 12:03 [facility] ED PFSH: Medical History Constipation H/O swallowed foreign body Hypothyroidism Major depressive disorder, recurrent severe without psychotic features Mental disability Post-traumatic stress disorder, chronic Psychiatric care Psychoses Surgical History H/O esophagogastroduodenoscopy (07/05/20) removal of FB History of cholecystectomy Social History Smoking and tobacco status: never smoked Second hand smoke exposure: No Alcohol intake: never Caregiver/support person: Yes Lives independently: No Household members: other Details: LIVES IN A SENIOR LIVING Housing: Assisted Living Facility Marital status: Single Current occupational status: disabled History of recent travel: No Current gender identity: Female Additional social history: Patient states that she grew up in [place]. She is currently living in a long term and is under guardianship. She enjoys playing games and eating hamburgers. She is despondent that there is no place in [place] where she can get a hamburger and does not know how to make one on her own. Female Reproductive History: Date of last menstrual period: 05/02/20 Course Vital Signs: Vital signs: Vital Signs Temperature 97.7 F 06/28/21 11:46 Pulse Rate 110 H 06/28/21 11:46 Respiratory Rate 14 06/28/21 11:46 Blood Pressure 125/87 06/28/21 11:46 Pulse Oximetry 98 06/28/21 11:46 Discharge Plan Discharge Condition: Stable Prescriptions: No Action haloperidol 5 mg tablet 5 mg PO DAILY PRN (Reason: severe agitation) Qty: 30 1RF quetiapine 100 mg tablet 200 mg PO BEDTIME Qty: 60 2RF topiramate 100 mg tablet 100 mg PO BEDTIME Qty: 30 2RF Depakote ER 500 mg tablet extended release 24 hr 500 mg PO BID Qty: 60 2RF clonazepam 0.5 mg tablet 0.5 mg PO TID Qty: 90 2RF fluvoxamine 100 mg tablet 100 mg PO BID Qty: 60 2RF acetaminophen 325 mg capsule 650 mg PO Q6H PRN (Reason: fever of 100.4 or greater and/or pain) Qty: 120 2RF Rx Instructions: Not to exceed 4,000 mg in 24 hr levothyroxine 125 mcg tablet See Rx Instructions .ROUTE .COMPLEX Qty: 30 5RF Dose Instruction: TAKE ONE TABLET BY MOUTH EVERY DAY AT 8am Rx Instructions: TAKE ONE TABLET BY MOUTH EVERY DAY AT 8am ergocalciferol (vitamin D2) 1,250 mcg (50,000 unit) capsule See Rx Instructions .ROUTE .COMPLEX Qty: 4 5RF Dose Instruction: TAKE ONE CAPSULE BY MOUTH ONCE WEEKLY Rx Instructions: TAKE ONE CAPSULE BY MOUTH ONCE WEEKLY omeprazole 20 mg capsule,delayed release(DR/EC) See Rx Instructions .ROUTE .COMPLEX Qty: 60 5RF Dose Instruction: TAKE ONE CAPSULE BY MOUTH TWICE DAILY AT 8am AND 8pm Rx Instructions: TAKE ONE CAPSULE BY MOUTH TWICE DAILY AT 8am AND 8pm dextromethorphan-guaifenesin [Safe Tussin DM] 10-100 mg/5 mL liquid See Rx Instructions .ROUTE .COMPLEX Qty: 500 0RF Dose Instruction: take 10ml BY MOUTH EVERY 6 HOURS NEEDED FOR cough Rx Instructions: take 10ml BY MOUTH EVERY 6 HOURS NEEDED FOR cough polyethylene glycol 3350 [Miralax] 17 gram/dose powder 17 g PO DAILY PRN (Reason: constipation) Qty: 238 2RF sennosides [Senna Laxative] 8.6 mg tablet 8.6 mg PO DAILY 0RF docusate sodium [Colace] 100 mg capsule 100 mg PO DAILY 0RF Label Comments: pt no longer taking magnesium citrate Solution 150 ml PO BID Qty: 296 0RF Rx Instructions: times 3 doses Referrals: Ольга Quarles FNP [Primary Care Provider] - Coding Level of Care Code ED Clamshell Operator for Brysong Yue
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
[2021-06-28 12:59] VITALS: BP 125/85; PULSE 81; RESP 18; TEMP 36.6; O2SAT 94
[2021-06-28 13:11] VITALS: BP 131/81; PULSE 88; RESP 18; TEMP 36.6; O2SAT 96
--- NOTE | 2021-06-29 15:29 | DCPLANNER ---
Addendum entered by Swapna Tinajero 07/09/21 08:39: Patient had a follow up appointment with general surgery - patient did attend appointment. Addendum entered by Swapna Tianjero 06/30/21 21:29: Patient has a follow up appointment scheduled for June at 9:[address] Justin at general surgery. Clinic will call patient with appointment information. Original Note: cancer registry manager had message to schedule a follow up appointment with general surgery. cancer registry manager sent patients information to the front office staff at general surgery. Patients information will be printed and reviewed. Clinic will call patient with appointment information.
== END 2021-06-28 13:15 | disposition home or self-care (01) ==
PROVIDERS: Emergency Provider Emergency Medicine; PCP Nurse Practitioner Family
DX: T18.8XXA Foreign body in other parts of alimentary tract, initial encounter (principal); X58.XXXA Exposure to other specified factors, initial encounter; F60.3 Borderline personality disorder; F32.A Depression, unspecified
CPT/HCPCS: 71045; 74018; 99283

== ENCOUNTER → 2021-07-01 10:22 | Outpatient (BNVA) | payer MEDICAID, SELFPAY | PROVIDERS: PCP Nurse Practitioner Family; Visit Provider Nurse Practitioner Family | DX: T18.9XXA Foreign body of alimentary tract, part unspecified, initial encounter (principal) | CPT/HCPCS: 74018 ==

== ENCOUNTER → 2021-07-06 08:12 | Outpatient (BNVA) | payer MEDICAID, SELFPAY | PROVIDERS: PCP Nurse Practitioner Family; Visit Provider Nurse Practitioner | DX: F60.3 Borderline personality disorder (principal); F70 Mild intellectual disabilities; F43.12 Post-traumatic stress disorder, chronic | CPT/HCPCS: 99214 ==

== ENCOUNTER 2021-08-08 16:18 | Emergency (ER) | payer MEDICAID, SELFPAY ==
--- NOTE | 2021-08-08 16:21 | XRR_ITS ---
PROCEDURE INFORMATION: Exam: XR Chest Exam date and time: 08/08/2021 4:49 PM Age: 36 years old Clinical indication: Other: Swallowed battery; Additional info: Fb TECHNIQUE: Imaging protocol: Radiologic exam of the chest. Views: 1 view. COMPARISON: CR XR chest 1V portable [id number] 06/28/2021 12:21 PM FINDINGS: Lungs: Unremarkable. No consolidation. Pleural spaces: Unremarkable. No pleural effusion. No pneumothorax. Heart/Mediastinum: Unremarkable. No cardiomegaly. Bones/joints: Unremarkable. Gastrointestinal tract: There is a metallic density measuring 15 mm x 13 mm in the projection of the stomach. This finding was not present on prior examination and correlates with a metallic battery corresponding to history. XR/XR chest 1V portable [id number] IMPRESSION: 1. Metallic battery is present in the stomach. 2. No acute chest abnormality.
[2021-08-08 16:37] VITALS: BP 135/88; PULSE 110; RESP 16; TEMP 37; O2SAT 98
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
== END 2021-08-08 17:19 | disposition home or self-care (01) ==
PROVIDERS: Emergency Provider Emergency Medicine; PCP Nurse Practitioner Family
DX: T18.9XXA Foreign body of alimentary tract, part unspecified, initial encounter (principal); X58.XXXA Exposure to other specified factors, initial encounter; F32.A Depression, unspecified
CPT/HCPCS: 71045; 99283

== ENCOUNTER → 2021-08-09 09:13 | Outpatient (BNVA) | payer MEDICAID, SELFPAY | PROVIDERS: PCP Nurse Practitioner Family; Visit Provider Nurse Practitioner | DX: F43.12 Post-traumatic stress disorder, chronic (principal); F70 Mild intellectual disabilities; F60.3 Borderline personality disorder | CPT/HCPCS: 99214 ==

== ENCOUNTER → 2021-08-11 10:41 | Outpatient (BNVA) | payer MEDICAID, SELFPAY | PROVIDERS: PCP Nurse Practitioner Family; Visit Provider Nurse Practitioner Family | DX: Z87.821 Personal history of retained foreign body fully removed (principal) | CPT/HCPCS: 74018 ==

== ENCOUNTER → 2021-08-18 10:00 | Outpatient (BNVA) | payer MEDICAID, SELFPAY | PROVIDERS: PCP Nurse Practitioner Family; Visit Provider Nurse Practitioner Family | DX: T18.9XXA Foreign body of alimentary tract, part unspecified, initial encounter (principal); Z87.821 Personal history of retained foreign body fully removed; X58.XXXA Exposure to other specified factors, initial encounter | CPT/HCPCS: 74018; 80053; 80061; 84443 ==

== ENCOUNTER 2021-08-28 14:38 | Inpatient (IN) | payer MEDICAID, SELFPAY ==
[2021-08-28] VITALS (13 sets, daily range): BP systolic 96–151; BP diastolic 59–100; PULSE 83–140; RESP 14–36; TEMP 36.7–36.8; O2SAT 95–98
--- NOTE | 2021-08-28 14:53 | W.ED.PSYCHS ---
HPI - Psych General: Chief Complaint: Psychiatric Symptoms Stated Complaint: SI, possible overdose Time Seen by Provider: 08/28/21 14:51 Source: patient Mode of arrival: ambulatory Limitations: no limitations History of Present Illness: 36-year-old female presents emergency room complaining of suicidal ideation she took 30 tablets of ondansetron earlier today and attempt to harm her self. Patient has had multiple suicide attempts past usually including ingestion of foreign objects. This time the patient ingested medications that were prescribed to one of her caregivers. MD complaint: suicidal ideation Onset (ago): minute(s) Relieving factors: none Exacerbating factors: none Associated symptoms: Reports suicidal ideation If self harm: admits thoughts of self harm, has plan and has acted on plan Review of Systems Const: Denies: fever(s), chills, body aches, change in appetite, fatigue or malaise ENMT: Denies: throat pain, ear or mastoid pain, nasal discharge or nasal congestion Card: Denies: chest pain, edema, dyspnea on exertion or orthopnea Resp: Denies: dyspnea, productive cough or non-productive cough GI: Denies: abdominal pain, nausea, vomiting, hematemesis, coffee ground emesis, diarrhea, constipation, bloating, hematochezia or melena : Denies: flank pain, difficulty voiding, dysuria, urinary frequency or urinary urgency Skin/Breast: Denies: rash or pruritus Psych: Reports: suicidal ideation [facility] PFSH: Medical History Constipation H/O swallowed foreign body Hypothyroidism Major depressive disorder, recurrent severe without psychotic features Mental disability Post-traumatic stress disorder, chronic Psychiatric care Psychoses Surgical History H/O esophagogastroduodenoscopy (07/05/20) removal of FB History of cholecystectomy Social History Smoking and tobacco status: never smoked Second hand smoke exposure: No Alcohol intake: never Caregiver/support person: Yes Lives independently: No Household members: other Details: LIVES IN A CORRECTION Housing: Assisted Living Facility Marital status: Single Current occupational status: disabled History of recent travel: No Current gender identity: Female Additional social history: Patient states that she grew up in [place]. She is currently living in [place] [facility] [place] and is under guardianship. She enjoys playing games and eating hamburgers. She is despondent that there is no place in [place] where she can get a hamburger and does not know how to make one on her own. Physical Exam Const: GENERAL APPEARANCE: cooperative and comfortable ORIENTATION/CONSCIOUSNESS: Yes awake HENMT: COMMON NORMALS: normocephalic, atraumatic and hearing grossly normal bilaterally HEAD & SCALP: normocephalic and atraumatic Neck/C-Spine: COMMON NORMALS: no JVD Resp: COMMON NORMALS: normal respiratory effort, No retractions, No use of accessory muscles and clear to auscultation bilaterally AUSCULTATION: clear to auscultation bilaterally Cardio: COMMON NORMALS: no JVD, regular rate, regular rhythm and No murmurs present (Cardio) RATE: regular rate RHYTHM: regular rhythm GI: COMMON NORMALS: Soft to palpation and No hepatosplenomegaly present AUSCULTATION: Yes normoactive bowel sounds PALPATION: Yes Soft to palpation, No Tenderness to palpation present (GI), No Guarding due to palpation present (GI) and Yes No hepatosplenomegaly present Extremity: COMMON NORMALS: normal to inspection, capillary refill normal, no clubbing, cyanosis or edema, no calf tenderness and no pedal edema Skin: COMMON NORMALS: no rashes or lesions noted GENERAL SKIN EXAM: no rashes or lesions noted Course Vital Signs: Vital signs: Vital Signs Temperature 98.6 F 08/31/21 06:00 Pulse Rate 108 H 08/31/21 06:00 Respiratory Rate 17 08/31/21 06:00 Blood Pressure 106/71 08/31/21 06:00 Pulse Oximetry 95 08/31/21 06:00 MDM - Psych Medical Decision Making Large ingestion intentionally of ondansetron at risk for arrhythmias. There is no prolonged QT on a current EKG. We will admit the patient to the ICU for well blood monitoring cardiac monitoring. Psychiatry consulted once she is medically cleared she can be transferred to the MPU if psychiatry deems appropriate Medical Records I reviewed the patient's medical records. Lab Data I reviewed the patient's lab results. : 08/29/21 04:40 08/30/21 04:11 Radiology Impressions Chest X-Ray 08/28/21 18:21 IMPRESSION: No acute findings. KUB X-Ray 08/28/21 18:21 IMPRESSION: No acute findings. Laboratory Results WBC 15.2 10^3/uL (4.0-10.0) H 08/28/21 15:25 RBC 4.75 10^6/uL (4.1-5.3) 08/28/21 15:25 Hgb 15.1 g/dL (11.5-15.3) 08/28/21 15:25 Hct 46.9 % (37.0-47.0) 08/28/21 15:25 MCV 98.7 fl (81-99) 08/28/21 15:25 MCH 31.8 pg (28.0-34.0) 08/28/21 15:25 MCHC 32.2 g/dL (30.0-36.0) 08/28/21 15:25 RDW 15.4 % (12.1-15.1) H 08/28/21 15:25 Plt Count 357 10^3/cmm (130-400) 08/28/21 15:25 MPV 10.7 fL (7.4-10.4) H 08/28/21 15:25 Neut % (Auto) 56.6 % 08/28/21 15:25 Lymph % (Auto) 32.7 % 08/28/21 15:25 Starr % (Auto) 8.3 % 08/28/21 15:25 Eos % (Auto) 0.7 % 08/28/21 15:25 Baso % (Auto) 0.6 % 08/28/21 15:25 Neut # (Auto) 8.58 10^3/uL (1.8-7.7) H 08/28/21 15:25 Lymph # (Auto) 5.0 10^3/uL (0.8-4.8) H 08/28/21 15:25 Starr # (Auto) 1.3 10^3/uL (0.2-0.9) H 08/28/21 15:25 Eos # (Auto) 0.1 10^3/uL (0.0-0.8) 08/28/21 15:25 Baso # (Auto) 0.1 10^3/uL (0.0-0.1) 08/28/21 15:25 Nucleated RBC % (auto) 0.2 % 08/28/21 15:25 Nucleated RBCs # 0.0 /100WBC 08/28/21 15:25 Sodium 138 mmol/L (136-145) 08/28/21 15:25 Potassium 3.6 mmol/L (3.5-5.1) 08/28/21 15:25 Chloride 101 mmol/L (98-107) 08/28/21 15:25 Carbon Dioxide 22 mmol/L (22-29) 08/28/21 15:25 Anion Gap 18.6 (5-19) 08/28/21 15:25 BUN 22 mg/dL (6-20) H 08/28/21 15:25 Creatinine 0.9 mg/dL (0.5-0.9) 08/28/21 15:25 GFR Calculation 70.1 mL/min (90-130) L 08/28/21 15:25 Glucose 121 mg/dL (65-115) H 08/28/21 15:25 Estimat Average Glucose 105 08/28/21 15:25 Hemoglobin A1c 5.3 % (4.0-6.0) 08/28/21 15:25 Calculated Osmolality 291 mOsm/kg (285-295) 08/28/21 15:25 Calcium 10.1 mg/dL (8.5-10.5) 08/28/21 15:25 Total Bilirubin 0.2 mg/dL (0.15-1.2) 08/28/21 15:25 AST 30 U/L (0-32) 08/28/21 15:25 ALT 21 U/L (0-33) 08/28/21 15:25 Alkaline Phosphatase 89 IU/L (35-105) 08/28/21 15:25 Total Protein 8.4 g/dL (6.6-8.7) 08/28/21 15:25 Albumin 4.3 g/dL (3.5-5.2) 08/28/21 15:25 Globulin 4.1 g/dL (1.3-4.6) 08/28/21 15:25 TSH 3.55 uIU/mL (0.27-4.20) 08/28/21 15:25 HCG, Qual Negative (Negative) 08/28/21 15:58 Urine Color Yellow (Yellow) 08/28/21 15:58 Urine Appearance Hazy (CLEAR) A 08/28/21 15:58 Urine pH 5 (5-7) 08/28/21 15:58 Ur Specific [place] 1.020 (1.005-1.030) 08/28/21 15:58 Urine Protein Neg (Negative) 08/28/21 15:58 Urine Glucose (UA) Norm (Normal) 08/28/21 15:58 Urine Ketones 1+ (Negative) H 08/28/21 15:58 Urine Blood 3+ (Negative) H 08/28/21 15:58 Urine Nitrate Negative (Negative) 08/28/21 15:58 Urine Bilirubin Neg (Negative) 08/28/21 15:58 Urine Urobilinogen Norm mg/dL (Negative) 08/28/21 15:58 Ur Leukocyte Esterase 2+ (Negative) H 08/28/21 15:58 Urine RBC 10-15 /hpf (0-2) H 08/28/21 15:58 Urine WBC 15-25 /hpf (0-5) H 08/28/21 15:58 Ur Squamous Epith Cells 10-15 /hpf (0-5) H 08/28/21 15:58 Amorphous Sediment Not Reportable 08/28/21 15:58 Urine Bacteria 2+ /hpf (NONE) H 08/28/21 15:58 Urine Mucus 2+ /hpf 08/28/21 15:58 Salicylates < 0.3 mg/dL (3-10) L 08/28/21 15:25 Urine Opiates Screen Negative ng/mL (Negative) 08/28/21 15:58 Acetaminophen < 5.0 ug/mL (10-30) L 08/28/21 15:25 Ur Barbiturates Screen Negative ng/mL (Negative) 08/28/21 15:58 Ur Phencyclidine Scrn Negative ng/mL (Negative) 08/28/21 15:58 Ur Amphetamines Screen Negative ng/mL (Negative) 08/28/21 15:58 U Benzodiazepines Scrn Negative ng/mL (Negative) 08/28/21 15:58 Urine Cocaine Screen Negative ng/mL (Negative) 08/28/21 15:58 U Marijuana (THC) Screen Negative ng/mL (Negative) 08/28/21 15:58 Discharge Plan Discharge Admit Provider: Sky Artis Condition: Stable Coding Level of Care Code ED Patient Care Coordinator for Chg Fwd Exam Comprehensive
--- NOTE | 2021-08-28 15:00 | PC.NURSE ---
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 Recommendations: Cardiac and EKG monitoring, supportive care, monitor for OUTSIDE REPAIRER SPECIAL depression, Benzos for seizures if applicable, labs, vitals, correlate clinically. This information provided to Dr. Hough by this RN.
--- NOTE | 2021-08-28 15:05 | ECG_ITS ---
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 Measurements Intervals [place] Rate: 115 P: 35 KS: 124 QRS: 30 QRSD: 78 T: 44 QT: 324 QTc: 449 Interpretive Statements SINUS TACHYCARDIA MODERATE ST DEPRESSION [0.05+ mV ST DEPRESSION] Compared to ECG 01/14/2021 18:39:34 No significant changes Electronically Signed On 08-29-2021 23:36:58 CDT by Rony Montoya M.D. [id number]
[2021-08-28 15:36] LABS: Basophils # 0.1 10^3/uL (0.0-0.1); Basophils % 0.6 %; Eosinophils # 0.1 10^3/uL (0.0-0.8); Eosinophils % 0.7 %; Hematocrit 46.9 % (37.0-47.0); Hemoglobin 15.1 g/dL (11.5-15.3); Lymphocytes % 32.7 %; Mean Corpuscular HGB Conc 32.2 g/dL (30.0-36.0); Mean Corpuscular Hemoglobin 31.8 pg (28.0-34.0); Mean Corpuscular Volume 98.7 fl (81-99); Mean Platelet Volume 10.7 fL (7.4-10.4); Monocytes # 1.3 10^3/uL (0.2-0.9); Monocytes % 8.3 %; Neutrophils # 8.58 10^3/uL (1.8-7.7); Neutrophils % 56.6 %; Nucleated Red Blood Cells % 0.2 %; Platelet Count 357 10^3/cmm (130-400); Red Blood Count 4.75 10^6/uL (4.1-5.3); Red Cell Distribution Width 15.4 % (12.1-15.1); White Blood Count 15.2 10^3/uL (4.0-10.0)
[2021-08-28 15:53] LABS: Alanine Aminotransferase 21 U/L (0-33); Albumin Level 4.3 g/dL (3.5-5.2); Alkaline Phosphatase 89 IU/L (35-105); Blood Urea Nitrogen 22 mg/dL (6-20); Calcium 10.1 mg/dL (8.5-10.5); Carbon Dioxide 22 mmol/L (22-29); Chloride 101 mmol/L (98-107); Globulin 4.1 g/dL (1.3-4.6); Glomerular Filtration Rate 70.1 mL/min (90-130); Glucose 121 mg/dL (65-115); Osmolality Calculated 291 mOsm/kg (285-295); Sodium 138 mmol/L (136-145); Total Bilirubin 0.2 mg/dL (0.15-1.2); Total Protein 8.4 g/dL (6.6-8.7)
[2021-08-28 15:54] LABS: Acetaminophen < 5.0 ug/mL (10-30); HCG, Serum Qual Negative (Negative); Salicylate < 0.3 mg/dL (3-10)
[2021-08-28 15:56] LABS: Anion Gap 18.6 (5-19); Aspartate Amino Transferase 30 U/L (0-32); Potassium 3.6 mmol/L (3.5-5.1)
[2021-08-28 16:21] LABS: Add Urine Microscopic? YES; Bilirubin Urine Neg (Negative); Blood Urine 3+ (Negative); Glucose Urine UA Norm (Normal); Ketones Urine 1+ (Negative); Leukocyte Esterase Urine 2+ (Negative); Nitrate Urine Negative (Negative); Protein Urine Neg (Negative); Urine Appearance Hazy (CLEAR); Urine Color Yellow (Yellow); Urobilinogen Urine Norm (Negative); pH Urine 5 (5-7)
[2021-08-28 16:23] LABS: Bacteria Urine 2+ /hpf; Mucus Urine 2+ /hpf; WBC Urine 15-25 /hpf (0-5)
[2021-08-28 16:24] LABS: Add Urine Culture? No; Amphetamines Screen Urine Negative (Negative); Barbiturates Screen Urine Negative (Negative); Benzodiazepines Screen Urine Negative (Negative); Cocaine Screen Urine Negative (Negative); Opiate Screen Urine Negative (Negative); PCP Screen Urine Negative (Negative); THC Screen Urine Negative (Negative)
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
--- NOTE | 2021-08-28 18:10 | P.HP_ITS ---
Providers/Chief Complaint Admitting Physician: Sky Artis MD Primary Care Provider: JACKIE Beverly Chief Complaint: SI, possible overdose History of Present Illness Shebly Cherry is a 36 year old female with a past medical history of hypothyroidism, major depressive disorder, mental disability, PTSD, currently living in 24-hour care, history of foreign body ingestion, who presents to [facility] has she swallowed a bottle of Zofran. Her caregiver tells me that she keeps all her pills locked up in a cabinet, however patient ingested roughly 30 pills of Zofran in attempt to harm himself. She has a history of suicide attempts in the past, she does report suicidal ideation, currently no suicidal ideation, and homicidal ideation. No cardiovascular history, denies any chest pain, no nausea, no vomiting. Denies ingesting any other foreign bodies. Denies any fevers, no chills. She did have a Sonic drink just before she came in to the hospital. She has not had a bowel movement today Review of Systems Const: Denies: fever(s) Eyes: Denies: change in vision Resp: Denies: dyspnea, productive cough, non-productive cough or wheezing GI: Denies: abdominal pain, nausea or vomiting : Denies: dysuria Musc: Denies: back pain Neuro: Denies: headache(s), dizziness or vertigo Endo: Denies: polyuria or polydipsia Medications/Allergies Home Medications Medication Instructions Recorded Confirmed Last Taken Type acetaminophen 325 mg capsule 650 mg PO Q6H PRN #120 cap 03/16/20 08/18/21 Unknown Rx sennosides 8.6 mg tablet (Senna 8.6 mg PO DAILY 07/05/20 08/18/21 07/08/20 History Laxative) haloperidol 5 mg tablet 5 mg PO DAILY PRN #30 tab 10/30/20 08/18/21 Unknown Rx magnesium citrate 150 ml PO BID #296 ml 01/25/21 08/18/21 Unknown Rx clonazepam 0.5 mg tablet 0.5 mg PO TID #90 tab 04/19/21 08/18/21 Unknown Rx dextromethorphan-guaifenesin 10 See Rx Instructions .ROUTE 05/03/21 08/18/21 Unknown Rx mg-100 mg/5 mL oral liquid (Safe .COMPLEX #500 milliliter Tussin DM) polyethylene glycol 3350 17 17 g PO DAILY PRN #238 gm 05/03/21 08/18/21 Unknown Rx gram/dose oral powder (Miralax) docusate sodium 100 mg capsule 100 mg PO DAILY 06/14/21 08/18/21 Unknown History (Colace) fluvoxamine 100 mg tablet 100 mg PO BID #60 tab 07/06/21 08/18/21 Unknown Rx fluvoxamine 50 mg tablet 50 mg PO BID #60 tab 07/06/21 08/18/21 Unknown Rx levothyroxine 125 mcg tablet See Rx Instructions .ROUTE 07/20/21 08/18/21 Unknown Rx .COMPLEX #30 tab ergocalciferol (vitamin D2) 1,250 See Rx Instructions .ROUTE 08/06/21 08/18/21 Unknown Rx mcg (50,000 unit) capsule .COMPLEX #4 cap omeprazole 20 mg capsule,delayed See Rx Instructions .ROUTE 08/06/21 08/18/21 Unknown Rx release .COMPLEX #60 cap medroxyprogesterone 150 mg/mL See Rx Instructions .ROUTE 08/18/21 Unknown Rx intramuscular suspension .COMPLEX #1 ml divalproex 500 mg tablet,extended 500 mg PO BID #60 tab 08/24/21 Unknown Rx release 24 hr (Depakote ER) quetiapine 100 mg tablet 200 mg PO BEDTIME #60 tab 08/24/21 Unknown Rx topiramate 100 mg tablet 100 mg PO BEDTIME #30 tab 08/24/21 Unknown Rx Allergies Allergy/AdvReac Type Severity Reaction Status Date / Time adhesive Allergy ALGY-Rash Verified 08/09/21 09:21 nitrofurantoin Allergy Unknown Verified 08/09/21 09:21 [From Macrobid] Penicillins Allergy Unknown Verified 08/09/21 09:21 BAND-AIDS Allergy Unknown Uncoded 06/27/21 11:02 TIDE DETERGENT Allergy Unknown Uncoded 06/27/21 11:02 PFSH Acute PFSH: Medical History Constipation H/O swallowed foreign body Hypothyroidism Major depressive disorder, recurrent severe without psychotic features Mental disability Post-traumatic stress disorder, chronic Psychiatric care Psychoses Surgical History H/O esophagogastroduodenoscopy (07/05/20) removal of FB History of cholecystectomy Social History Smoking and tobacco status: never smoked Second hand smoke exposure: No Alcohol intake: never Caregiver/support person: Yes Lives independently: No Household members: other Details: LIVES IN A CARE HOME Housing: Assisted Living Facility Marital status: Single Current occupational status: disabled History of recent travel: No Current gender identity: Female Additional social history: Patient states that she grew up in [place]. She is currently living in a long-term and is under guardianship. She enjoys playing games and eating hamburgers. She is despondent that there is no place in [place] where she can get a hamburger and does not know how to make one on her own. Vitals/I&O/Wt Last Vital Signs Temp 98.2 F 08/28/21 14:44 Pulse 110 H 08/28/21 17:04 Resp 15 08/28/21 17:04 BP 121/84 08/28/21 17:04 Pulse Ox 98 08/28/21 17:04 Weight last 48 hrs Weight 104.78 kg Physical Exam Const: COMMON NORMALS: no acute distress ORIENTATION/CONSCIOUSNESS: Yes awake, Yes oriented to person and Yes oriented to place HENMT: COMMON NORMALS: normocephalic HEAD & SCALP: normocephalic Eye: COMMON NORMALS: Equal, round and reactive pupils present and EOMs intact bilaterally Resp: COMMON NORMALS: normal respiratory effort, No retractions, No use of accessory muscles and clear to auscultation bilaterally AUSCULTATION: clear to auscultation bilaterally Cardio: COMMON NORMALS: regular rate, regular rhythm, S1 normal heart sound present and S2 normal heart sound present RATE: regular rate RHYTHM: regular rhythm HEART SOUNDS: S1 normal heart sound present and S2 normal heart sound present GI: COMMON NORMALS: Normal to inspection, nondistended, normoactive bowel sounds present, Soft to palpation, non-tender, No hepatosplenomegaly present, no masses and no bruits PALPATION: Yes Soft to palpation and Yes No hepatosplenomegaly present Extremity: COMMON NORMALS: capillary refill normal, no clubbing, cyanosis or edema, no calf tenderness and no pedal edema Neuro: COMMON NORMALS: CN's II-XII intact bilaterally, moves all extremities and no focal motor deficits Psych: COMMON NORMALS: mental status grossly normal Data : 08/28/21 15:25 08/28/21 15:25 A&P Assessment and plan (1) Suicide attempt: Status: Acute (2) Suicidal ideation: Status: Acute (3) Deliberate medication overdose: Status: Acute Plan Deliberate medication overdose, suicide ideation, possible suicide attempt -Admit to ICU, suicide precautions, one-to-one sitter -Zofran ingestion, poison control has been contacted -Serial EKGs, telemetry monitoring to monitor QTC -We will do KUB, and as she has a history of foreign body ingestion -Monitor electrolytes -Monitor for chest pain, monitor for arrhythmia, monitor for ileus -Resume home medications -She is on multiple psychiatric medications, which can also prolong the QTC in addition to Zofran however holding medications I feel can possibly worsen the patient's psychiatric symptoms, will need to monitor QTC very closely -Full code -SCDs for DVT prophylaxis UTI, continue Rocephin Attestations Medical Necessity Statement*: Patient requires hospitalization for deliberate medication overdose, suicide ideation, possible suicide attempt, inpatient, greater than 2 midnights Coding Level of Care Code Acute Water/Wastewater Project Engineer for brinda Fwd Diagnoses Suicide attempt T14.91XA Suicidal ideation R45.851 Deliberate medication overdose T50.902A
--- NOTE | 2021-08-28 18:21 | XRR_ITS ---
PROCEDURE INFORMATION: Exam: XR Chest Exam date and time: 08/28/2021 6:40 PM Age: 36 years old Clinical indication: Other: Ingestion; Additional info: Injestion TECHNIQUE: Imaging protocol: Radiologic exam of the chest. Views: 1 view. COMPARISON: CR (CHEST, ) 08/08/2021 4:49 PM FINDINGS: Lungs: Unremarkable. No consolidation. Pleural spaces: Unremarkable. No pleural effusion. No pneumothorax. Heart/Mediastinum: Unremarkable. No cardiomegaly. Bones/joints: Unremarkable. XR/XR chest 1V portable [id number] IMPRESSION: No acute findings.
--- NOTE | 2021-08-28 18:21 | XRR_ITS ---
PROCEDURE INFORMATION: Exam: XR Abdomen Exam date and time: 08/28/2021 6:51 PM Age: 36 years old Clinical indication: Bloating; Additional info: Abdominal distention TECHNIQUE: Imaging protocol: Radiologic exam of the abdomen. Views: Frontal supine view of the abdomen. 1 View. COMPARISON: CR XR KUB [id number] 08/18/2021 10:07 AM FINDINGS: Gastrointestinal tract: Normal. No bowel dilation. No evidence of foreign body. Bones/joints: Unremarkable. XR/XR KUB portable [id number] IMPRESSION: No acute findings.
[2021-08-28] MEDS: dextrose 5%-sod chloride 0.9% 1,000 ML 75 ML IV (18:46)
[2021-08-28] MEDS: cefTRIAXone 1,000 MG in sodium chloride 0.9% (plus) 50 ML 100 MG IV (18:47)
[2021-08-28 18:54] LABS: Thyroid Stimulating Hormone 3.55 uIU/mL (0.27-4.20)
[2021-08-28 19:05] LABS: HCG Qualitative Urine. Negative (Negative)
[2021-08-28] MEDS: topiramate 100 mg Tablet PO (20:08)
[2021-08-28] MEDS: CLONazepam 0.5 mg Tablet PO (20:08)
[2021-08-28] MEDS: quetiapine 100 mg Tablet 200 MG PO (20:08)
[2021-08-28 21:53] LABS: Estmated Average Glucose 105; Hemoglobin A1C 5.3 % (4.0-6.0)
[2021-08-29] VITALS (24 sets, daily range): BP systolic 96–126; BP diastolic 61–85; PULSE 80–129; RESP 18–46; TEMP 36.8–37.4; O2SAT 95–98
--- NOTE | 2021-08-29 | ECG_ITS ---
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 Measurements Intervals [place] Rate: 93 P: 35 PA: 126 QRS: 29 QRSD: 86 T: 31 QT: 357 QTc: 444 Interpretive Statements SINUS RHYTHM MODERATE ST DEPRESSION [0.05+ mV ST DEPRESSION] Compared to ECG 08/28/2021 15:28:58 Sinus tachycardia no longer present ST (T wave) deviation still present Electronically Signed On 08-29-2021 23:43:10 CDT by Rony Montoya M.D. [id number] f
[2021-08-29 05:17] LABS: Basophils # 0.1 10^3/uL (0.0-0.1); Basophils % 0.4 %; Eosinophils # 0.1 10^3/uL (0.0-0.8); Hematocrit 39.6 % (37.0-47.0); Hemoglobin 12.6 g/dL (11.5-15.3); Lymphocytes # 4.9 10^3/uL (0.8-4.8); Lymphocytes % 35.7 %; Mean Corpuscular HGB Conc 31.8 g/dL (30.0-36.0); Mean Corpuscular Hemoglobin 31.8 pg (28.0-34.0); Mean Platelet Volume 10.8 fL (7.4-10.4); Monocytes # 1.3 10^3/uL (0.2-0.9); Monocytes % 9.4 %; Neutrophils # 7.19 10^3/uL (1.8-7.7); Neutrophils % 52.7 %; Nucleated Red Blood Cells % 0.1 %; Platelet Count 312 10^3/cmm (130-400); Red Blood Count 3.96 10^6/uL (4.1-5.3); Red Cell Distribution Width 15.9 % (12.1-15.1); White Blood Count 13.7 10^3/uL (4.0-10.0)
[2021-08-29] MEDS: levothyroxine 125 mcg Tablet PO (05:43)
[2021-08-29 05:50] LABS: Alanine Aminotransferase 14 U/L (0-33); Albumin Level 3.4 g/dL (3.5-5.2); Alkaline Phosphatase 67 IU/L (35-105); Anion Gap 14.8 (5-19); Aspartate Amino Transferase 20 U/L (0-32); Blood Urea Nitrogen 21 mg/dL (6-20); Calcium 9.1 mg/dL (8.5-10.5); Carbon Dioxide 22 mmol/L (22-29); Chloride 110 mmol/L (98-107); Creatine Phosphokinase 50 U/L (26-192); Globulin 2.9 g/dL (1.3-4.6); Glomerular Filtration Rate 62.1 mL/min (90-130); Glucose 124 mg/dL (65-115); Osmolality Calculated 300 mOsm/kg (285-295); Phosphorus 3.2 mg/dL (2.5-4.5); Potassium 3.8 mmol/L (3.5-5.1); Sodium 143 mmol/L (136-145); Total Bilirubin 0.2 mg/dL (0.15-1.2); Total Protein 6.3 g/dL (6.6-8.7)
--- NOTE | 2021-08-29 06:00 | ECG_ITS ---
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 Measurements Intervals [place] Rate: 92 P: 39 GA: 124 QRS: 33 QRSD: 90 T: 31 QT: 362 QTc: 448 Interpretive Statements SINUS RHYTHM MODERATE ST DEPRESSION [0.05+ mV ST DEPRESSION] Compared to ECG 08/28/2021 23:28:55 No significant changes Electronically Signed On 08-29-2021 23:43:02 CDT by Rony Montoya M.D. [id number]
[2021-08-29] MEDS: dextrose 5%-sod chloride 0.9% 1,000 ML 75 ML IV ×2 (08:24→20:42)
[2021-08-29] MEDS: pantoprazole DR 40 mg Tablet PO (08:36)
[2021-08-29] MEDS: divalproex ER 500 mg Tablet (24H) PO ×2 (08:36→18:23)
[2021-08-29] MEDS: CLONazepam 0.5 mg Tablet PO ×3 (08:36→20:14)
--- NOTE | 2021-08-29 13:41 | PM.PN ---
Subjective Subjective: Patient was seen this morning, she reports some epigastric discomfort, she reports suicidal ideation, reports active suicidal ideation, does report that she was attempted to commit suicide by consuming the Zofran, she had a breakfast this morning, no nausea, vomiting, no abdominal pain Vitals/I&O/Wt Last Vital Signs Temp 99.3 F 08/29/21 08:00 Pulse 105 H 08/29/21 12:00 Resp 25 H 08/29/21 12:00 BP 118/73 08/29/21 12:00 Pulse Ox 98 08/29/21 09:00 08/28/21 08/29/21 08/29/21 22:59 06:59 14:59 Intake Total 50 / 50 250 / 300 1840 / 1840 Output Total 1025 / 1025 Balance 50 / 50 -775 / -725 1840 / 1840 Weight last 48 hrs Weight 104.78 kg Physical Exam Const: COMMON NORMALS: no acute distress and patient oriented x3 Resp: COMMON NORMALS: normal respiratory effort, No retractions, No use of accessory muscles and clear to auscultation bilaterally AUSCULTATION: clear to auscultation bilaterally Cardio: COMMON NORMALS: regular rate, regular rhythm, S1 normal heart sound present and S2 normal heart sound present RATE: regular rate RHYTHM: regular rhythm HEART SOUNDS: S1 normal heart sound present and S2 normal heart sound present GI: COMMON NORMALS: Normal to inspection, nondistended, normoactive bowel sounds present, Soft to palpation and non-tender PALPATION: Yes Soft to palpation Extremity: COMMON NORMALS: no pedal edema Neuro: COMMON NORMALS: patient oriented x3 Psych: COMMON NORMALS: mental status grossly normal Data : 08/29/21 04:40 08/29/21 04:40 Micro: Microbiology 08/28/21 15:58 Chlamydia trachomatis (CARITO) - Final Urine Random Neisseria gonorrhoeae (CARITO) - Final A&P Assessment and plan (1) Suicide attempt: Status: Acute (2) Suicidal ideation: Status: Acute (3) Deliberate medication overdose: Status: Acute Plan Deliberate medication overdose, suicide ideation, possible suicide attempt -We will moved to n.p.u. -Zofran ingestion, poison control has been contacted -No significant QTC prolongation -KUB no evidence of foreign body -Monitor electrolytes -Monitor for chest pain, monitor for arrhythmia, monitor for ileus -Resume home medications, caregiver has to bring in fluvoxamine -She is on multiple psychiatric medications, which can also prolong the QTC in addition to Zofran however holding medications I feel can possibly worsen the patient's psychiatric symptoms, will need to monitor QTC very closely -Full code -SCDs for DVT prophylaxis UTI, continue Rocephin Active suicidal ideation, suicide attempt Attestations Medical Necessity Statement*: Patient requires hospitalization due to suicide attempt Coding Level of Care Code Acute Manufacturing Engineering Manager for [facility] Fwd Diagnoses Suicide attempt T14.91XA Suicidal ideation R45.851 Deliberate medication overdose T50.902A
[2021-08-29] MEDS: quetiapine 100 mg Tablet 200 MG PO (20:14)
[2021-08-29] MEDS: topiramate 100 mg Tablet PO (20:14)
[2021-08-30] VITALS (7 sets, daily range): BP systolic 101–102; BP diastolic 62–66; PULSE 70–100; RESP 21–22; TEMP 36.8; O2SAT 95–97; BMI 38.4
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
[2021-08-30 05:12] LABS: Alanine Aminotransferase 14 U/L (0-33); Albumin Level 3.2 g/dL (3.5-5.2); Alkaline Phosphatase 65 IU/L (35-105); Anion Gap 13.8 (5-19); Aspartate Amino Transferase 16 U/L (0-32); Blood Urea Nitrogen 17 mg/dL (6-20); Calcium 9.5 mg/dL (8.5-10.5); Carbon Dioxide 23 mmol/L (22-29); Chloride 108 mmol/L (98-107); Creatine Phosphokinase 45 U/L (26-192); Globulin 3.1 g/dL (1.3-4.6); Glomerular Filtration Rate 62.1 mL/min (90-130); Glucose 113 mg/dL (65-115); Magnesium 1.9 mg/dL (1.7-2.3); Osmolality Calculated 294 mOsm/kg (285-295); Phosphorus 2.5 mg/dL (2.5-4.5); Potassium 3.8 mmol/L (3.5-5.1); Sodium 141 mmol/L (136-145); Total Bilirubin 0.2 mg/dL (0.15-1.2); Total Protein 6.3 g/dL (6.6-8.7)
[2021-08-30] MEDS: levothyroxine 125 mcg Tablet PO (05:55)
[2021-08-30] MEDS: cefdinir 300 MG CAPSULE PO ×2 (08:53→17:38)
[2021-08-30] MEDS: CLONazepam 0.5 mg Tablet PO ×3 (08:54→20:35)
[2021-08-30] MEDS: pantoprazole DR 40 mg Tablet PO (08:54)
[2021-08-30] MEDS: divalproex ER 500 mg Tablet (24H) PO ×2 (08:54→17:39)
--- NOTE | 2021-08-30 14:04 | PM.MISC ---
Miscellaneous Note Note: Patient is safe to be transferred to Neuropsych Unit No overnight events Patient admitted to taking medications She is laying supine Pleasant and cooperative during my evaluation Awake and alert Abdomen is soft She was complaining of itchiness around her blood pressure cuff area no active signs of cellulitis Nonfocal neuro exam Saturating well on room air Patient can be safely transferred to Neuropsych Unit No QTC prolongation No cardiac arrhythmia
--- NOTE | 2021-08-30 15:40 | PC.PHAR ---
MEDICATIONS ENTERED ARE FROM WHAT [facility] HAS FILLED RECENTLY-PTS IS FROM [facility] REC TECH TRIED TO CONTACT [facility] CONTACT ON Monday08/29/21-I CALLED [facility] [phone] TODAY TO TRY TO GET MED LIST 08/30/21 NO ANSWER-NOTES ARE MADE IN THE PHARMACY COMMENTS
--- NOTE | 2021-08-30 20:25 | PC.NURSE ---
Charge nurse notified at 2024 patient's guardian,Eva Jaeger, that patient was transferred from ICU to NPU. Patient's guardian verbalized understanding.
[2021-08-30] MEDS: topiramate 100 mg Tablet PO (20:35)
[2021-08-30] MEDS: quetiapine 100 mg Tablet 200 MG PO (20:35)
--- NOTE | 2021-08-30 20:37 | PC.NURSE ---
Patient was transferred from ICU.
[2021-08-31 01:42] VITALS: BP 115/74; PULSE 114; TEMP 36.8; O2SAT 95
[2021-08-31 06:00] VITALS: BP 106/71; PULSE 108; RESP 17; TEMP 37; O2SAT 95
[2021-08-31] MEDS: levothyroxine 125 mcg Tablet PO (06:07)
[2021-08-31] MEDS: divalproex ER 500 mg Tablet (24H) PO ×2 (08:53→18:02)
[2021-08-31] MEDS: cefdinir 300 MG CAPSULE PO ×2 (08:53→18:02)
[2021-08-31 08:54] LABS: Creatine Phosphokinase 62 U/L (26-192)
[2021-08-31] MEDS: pantoprazole DR 40 mg Tablet PO (08:54)
[2021-08-31] MEDS: CLONazepam 0.5 mg Tablet PO ×3 (08:54→20:54)
[2021-08-31 09:06] LABS: Alanine Aminotransferase 16 U/L (0-33); Albumin Level 3.5 g/dL (3.5-5.2); Alkaline Phosphatase 76 IU/L (35-105); Anion Gap 18.1 (5-19); Aspartate Amino Transferase 16 U/L (0-32); Blood Urea Nitrogen 16 mg/dL (6-20); Calcium 9.3 mg/dL (8.5-10.5); Carbon Dioxide 16 mmol/L (22-29); Chloride 106 mmol/L (98-107); Globulin 4.1 g/dL (1.3-4.6); Glomerular Filtration Rate 80.3 mL/min (90-130); Glucose 98 mg/dL (65-115); Osmolality Calculated 283 mOsm/kg (285-295); Phosphorus 2.7 mg/dL (2.5-4.5); Potassium 4.1 mmol/L (3.5-5.1); Sodium 136 mmol/L (136-145); Total Bilirubin 0.2 mg/dL (0.15-1.2); Total Protein 7.6 g/dL (6.6-8.7)
--- NOTE | 2021-08-31 10:42 | PC.NURSE ---
IN BED RESTING. STATES SHE IS ANXIOUS AND HAVING SUICIDAL THOUGHTS WITH PLAN TO OVERDOSE ON PILLS. PT STATED HER VOICES ARE GOING BACK AND FORTH THIS MORNING. CONTRACTED FOR SAFETY. PT STATES SHE WILL NOTIFY STAFF OF INCREASED THOUGHTS OF HURTING SELF. PT CONTINUES TO HAVE ATTENTION SEEKING BEHAVIOR. SUPPORT VOICED.
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
[2021-08-31 14:00] VITALS: BP 114/77; PULSE 100; RESP 18; TEMP 36.7; O2SAT 96
[2021-08-31 19:50] VITALS: BP 118/80; PULSE 97; RESP 20; TEMP 36.6; O2SAT 95
[2021-08-31] MEDS: quetiapine 100 mg Tablet 250 MG PO (20:53)
[2021-08-31] MEDS: topiramate 25 mg Tablet 50 MG PO (20:54)
[2021-09-01 06:00] VITALS: BP 123/84; PULSE 110; RESP 16; TEMP 36.6; O2SAT 96
[2021-09-01] MEDS: levothyroxine 125 mcg Tablet PO (06:02)
[2021-09-01] MEDS: CLONazepam 0.5 mg Tablet PO ×3 (11:45→19:32)
[2021-09-01] MEDS: cefdinir 300 MG CAPSULE PO ×2 (11:45→18:52)
[2021-09-01] MEDS: pantoprazole DR 40 mg Tablet PO (11:46)
[2021-09-01] MEDS: divalproex ER 500 mg Tablet (24H) PO ×2 (11:46→18:53)
[2021-09-01 14:00] VITALS: BP 116/71; PULSE 97; RESP 20; TEMP 36.3; O2SAT 96
--- NOTE | 2021-09-01 14:02 | W.PM.NPUPNS ---
Subjective NPU Subjective: Patient reports that she has been the same. She reports no side effects of medication. She reports that she does not wish to ever go back to her living situation. She was directable on the unit, repeatedly stating to staff and junior underwriter that she continues to have suicidal thoughts. The patient continues to require redirection and help with completion of activities of daily living. She did not endorse auditory hallucinations. Mental Status Exam MSE Comments: This is an obese versus morbidly obese white female, with adequate dress, poor grooming, and fair eye contact. No abnormal movements except for mild psychomotor slowing. Cooperative with exam in no acute distress. Speech was decreased rate and volume. Mood described as depressed, affect remained restricted in range. Thought process: concrete, and superficial. . Thought content: patient endorsed suicidal, but denied homicidal ideation, there were no delusions reported or noted, patient did not endorse auditory hallucinations or visual hallucinations. Attention and concentration appear at baseline and memory appeared unreliable but none were formally tested.? She is Alert and oriented to person and year and day of the week. ? Insight and judgment are limited, impulse control is limited.? Her intelligence was commensurate for mild cognitive impairment.? Vitals/I&O/Wt Last Vital Signs Temp 97.4 F L 09/01/21 14:00 Pulse 97 09/01/21 14:00 Resp 20 H 09/01/21 14:00 BP 116/71 09/01/21 14:00 Pulse Ox 96 09/01/21 14:00 Data NPU : 08/29/21 04:40 08/31/21 08:06 A&P Assessment and plan (1) Impulse control disorder: Status: Acute (2) Deliberate medication overdose: Status: Acute (3) Obesity: Status: Acute (4) Suicide attempt: Status: Acute Plan 1) TO-15 minute checks 2) increase seroquel to 300mg at night, discontinue topamax due to cognitive potential side effects. 3.? engage patient in milieu and group therapy Involuntary Hold Information 96 Hour Hold: 96 Hour Involuntary Admission: Yes 96 Hour Hold Ending Date: 08/19/19 96 Hour Hold Ending Time: 07:00 Attestations NPU Medical Necessity Statement*: Patient to be admitted for at least two midnights with likely length of stay 1-2 more days.? Coding Level of Care Code Established Pt Acute Coding Consultant for Lasha Turner Patient Type Established History Problem Focused Exam Problem Focused Medical Decision Making Straight Forward Diagnoses Impulse control disorder F63.9 Deliberate medication overdose T50.902A Obesity E66.9 Suicide attempt T14.91XA
[2021-09-01] MEDS: polyethylene glycol 3350 Pkt 17 gm PO (15:52)
[2021-09-01 19:12] VITALS: BP 104/70; PULSE 99; RESP 20; TEMP 36.9; O2SAT 96
[2021-09-01] MEDS: quetiapine 100 mg Tablet 300 MG PO (19:31)
--- NOTE | 2021-09-01 20:16 | PC.NURSE ---
Patient reported thoughts of wanting to kill herself, contracted her for safety. Will continue to monitor.
[2021-09-02 05:39] VITALS: BP 104/70; PULSE 99; RESP 20; TEMP 36.9; O2SAT 96
[2021-09-02 05:55] VITALS: BP 118/83; PULSE 115; RESP 17; TEMP 36.7; O2SAT 94
[2021-09-02] MEDS: levothyroxine 125 mcg Tablet PO (05:59)
[2021-09-02] MEDS: divalproex ER 500 mg Tablet (24H) PO (09:17)
[2021-09-02] MEDS: cefdinir 300 MG CAPSULE PO (09:18)
[2021-09-02] MEDS: CLONazepam 0.5 mg Tablet PO (09:18)
[2021-09-02] MEDS: pantoprazole DR 40 mg Tablet PO (09:18)
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
[2021-09-02 11:49] VITALS: BP 118/83; PULSE 115; RESP 17; TEMP 36.7; O2SAT 94
--- NOTE | 2021-09-02 15:56 | PC.NURSE ---
Cefdinir 300 mg po bid # [id number] called into [facility].
== END 2021-09-02 12:30 | disposition home or self-care (01) | DRG 918 ==
LOC: ER 15:04 → ICU 17:20 → NP 08-30 18:35
PROVIDERS: Admitting Provider Family Medicine; Emergency Provider Family Medicine; PCP Nurse Practitioner Family; Visit Provider Psychiatry & Neurology Psychiatry
DX: T45.0X2A Poisoning by antiallergic and antiemetic drugs, intentional self-harm, initial encounter (principal); R45.851 Suicidal ideations; F33.2 Major depressive disorder, recurrent severe without psychotic features; Z91.51 Personal history of suicidal behavior; E03.9 Hypothyroidism, unspecified; F43.12 Post-traumatic stress disorder, chronic; F79 Unspecified intellectual disabilities; Z88.0 Allergy status to penicillin; F63.9 Impulse disorder, unspecified; F60.3 Borderline personality disorder; E66.9 Obesity, unspecified; Z68.38 Body mass index [BMI] 38.0-38.9, adult
CPT/HCPCS: 36415; 71045; 74018; 80053; 80306; 80307; 81001; 81025; 82550; 83036; 83735; 84100; 84443; 84703; 85025; 85610; 87086; 87491; 87591; 93005; 94664; 97150; 97165; 99285; J0696

== ENCOUNTER 2021-10-03 14:32 | Emergency (ER) | payer MEDICAID, SELFPAY ==
[2021-10-03 14:48] VITALS: BP 137/89; PULSE 122; RESP 18; TEMP 36.6; O2SAT 95
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
--- NOTE | 2021-10-03 15:02 | ED_ITS ---
HPI - General Adult General: Chief complaint: Psychiatric Symptoms Stated complaint: swallowed fb Time Seen by Provider: 10/03/21 14:56 History of Present Illness: HPI: [36]yo patient w/ hx of depression, cysts seizure presenting to the emergency room for concerns of acute suicide attempt. About 2 hours ago, patient is well the plastic covering of an outlet. Since the patient has been having midepigastric abd pain. Patient denies swallowing any metals or batteries. Patient denies swallowing any sharp objects. Patient reports feeling progressively more depressed in the last few days and has been hearing voices to kill herself. On arrival, the patient is AAOx3 and cooperat jose guadalupe with my evaluation. No focal complaints of chest pain, shortness of breath, palpitations, N/V, focal GI/ complaints.]Currently denies SI. +Auditory hallucinations. Onset: acute on chronic Duration: ongoing Location: home Severity: severe Associated symptoms: Deny chest pain, dyspnea, nausea, rash, palpitations or vomiting Review of Systems Const: Denies: fever(s) or chills Eyes: Denies: change in vision ENMT: Denies: mouth pain Card: Denies: chest pain or palpitations Resp: Denies: dyspnea or non-productive cough GI: Reports: abdominal pain; Denies: nausea, vomiting or diarrhea : Denies: dysuria Musc: Denies: extremity pain Skin/Breast: Denies: rash or new lesions Neuro: Denies: weakness in extremities Psych: Reports: depression and suicidal ideation (+suicide attempt) Hayden/Lymph: Denies: easy bruising PFSH ED PFSH: Medical History Constipation Depression H/O swallowed foreign body Hypothyroidism Major depressive disorder, recurrent severe without psychotic features Mental disability Post-traumatic stress disorder, chronic Psychiatric care Psychoses Seizure disorder Surgical History H/O esophagogastroduodenoscopy (07/05/20) removal of FB History of cholecystectomy Social History Smoking and tobacco status: never smoked Second hand smoke exposure: No Alcohol intake: never Caregiver/support person: Yes Lives independently: No Household members: other Details: LIVES IN A PRISON Housing: Assisted Living Facility Marital status: Single Current occupational status: disabled History of recent travel: No Current gender identity: Female Additional social history: Patient states that she grew up in [place]. She is currently living in a fpc and is under guardianship. She enjoys playing games and eating hamburgers. She is despondent that there is no place in [place] where she can get a hamburger and does not know how to make one on her own. Physical Exam Const: COMMON NORMALS: alert HENMT: COMMON NORMALS: atraumatic HEAD & SCALP: atraumatic MOUTH: moist mucous membranes not abnormal Eye: COMMON NORMALS: EOMs intact bilaterally and conjunctivae normal CONJUNCTIVA: Yes conjunctivae normal Neck/C-Spine: COMMON NORMALS: full ROM and supple Resp: COMMON NORMALS: normal respiratory effort and clear to auscultation bilaterally AUSCULTATION: clear to auscultation bilaterally Cardio: COMMON NORMALS: regular rate RATE: regular rate GI: COMMON NORMALS: Soft to palpation PALPATION: Yes Soft to palpation OTHER: +mild midepigastric focal TTP. NO guarding rebound, guarding, rigidity. No CVA tenderness to percussion. Neg Vallecillo/Neg McBurney's point tenderness, no suprabupic tenderness to palpation. Extremity: COMMON NORMALS: full ROM Neuro: SENSORIUM/ORIENTATION: Yes alert MOTOR EXAM: No Abnormal motor strength present and Other motor observations present (no focal motor deficits) Psych: COMMON NORMALS: speech normal SPEECH: Yes normal speech MOOD & AFFECT: Yes euthymic mood Course Vital Signs: Vital signs: Vital Signs Temperature 97.9 F 10/03/21 14:48 Pulse Rate 80 10/03/21 17:46 Respiratory Rate 18 10/03/21 14:48 Blood Pressure 137/89 10/03/21 14:48 Pulse Oximetry 97 10/03/21 17:46 MDM - General Adult Medical Decision Making [36]yo patient w/ hx of depression, seizure presenting for acute suicide attempt after ingesting the plastic covering of an outlet.. HDS, exam within normal limit Thoughts are linear and organized, and the patient has no VH, or HI. She reports mild midepigastric kendy pain. Clinically the patient displays no overt toxidrome; they are well appearing, with low suspicion for toxic ingestion given history and exam. Symptoms unlikely 2/2 anemia, hypothyroidism, infection, or ICH. Workup: CBC, CMP, Lipase, salicylate/tylenol, serum ethanol, UDS, HCG, XR KUB Lab findings: wnl On KUB, patient's, found to have around radial opaque substance in the right lower quadrant. Does not appear to be sharp or have to bring to suggest battery. I discussed case with Dr. Sharma at 4:04 PM who recommended close outpatient follow-up. I have given patient follow up with our case reviewer [facility] for evaluation of foreign object in the RLQ. Patient aware of a call from our case reviewer to schedule for appointment(s) and verbalizes understanding of the importance of following up. I have given patient follow up with our case reviewer to be seen by our outpatient by [facility] for change in recent behaviors. Patient aware of a call from our case reviewer to schedule for appointment(s) and verbalizes understanding of the importance of following up. [4:45pm] On reassessment, labs and workup wnl. Patient is hemodynamically stable with no acute medical complaints. Case discussed with psychiatric provider Dr. Kendall at [facility] psych inpatient who assessed patient at bedside and recommended close observation with [facility]. Patient's heart rate improved witho ut any intervention in the emergency room. Disposition: Discharge. Patient counseled regarding diagnostic impression, treatment plan. Patient given ED strict return precautions to return for continuation, worsening, or development of new symptoms. Instructed to f/u w/ [facility] and Dr. Sharma regarding symptoms today. Patient verbalized understanding. Lab Data : 10/03/21 16:30 10/03/21 16:30 Radiology Impressions KUB X-Ray 10/03/21 14:56 IMPRESSION: 1. No acute GI abnormality. 2. Radiodense foreign body right lower quadrant Laboratory Results WBC 13.3 10^3/uL (4.0-10.0) H 10/03/21 16:30 RBC 4.59 10^6/uL (4.1-5.3) 10/03/21 16:30 Hgb 14.3 g/dL (11.5-15.3) 10/03/21 16:30 Hct 44.3 % (37.0-47.0) 10/03/21 16:30 MCV 96.5 fl (81-99) 10/03/21 16:30 MCH 31.2 pg (28.0-34.0) 10/03/21 16:30 MCHC 32.3 g/dL (30.0-36.0) 10/03/21 16:30 RDW 14.8 % (12.1-15.1) 10/03/21 16:30 Plt Count 356 10^3/cmm (130-400) 10/03/21 16:30 MPV 10.4 fL (7.4-10.4) 10/03/21 16:30 Neut % (Auto) 57.5 % 10/03/21 16:30 Lymph % (Auto) 32.1 % 10/03/21 16:30 Pitkin % (Auto) 9.1 % 10/03/21 16:30 Eos % (Auto) 0.3 % 10/03/21 16:30 Baso % (Auto) 0.5 % 10/03/21 16:30 Neut # (Auto) 7.67 10^3/uL (1.8-7.7) 10/03/21 16:30 Lymph # (Auto) 4.3 10^3/uL (0.8-4.8) 10/03/21 16:30 Pitkin # (Auto) 1.2 10^3/uL (0.2-0.9) H 10/03/21 16:30 Eos # (Auto) 0.0 10^3/uL (0.0-0.8) 10/03/21 16:30 Baso # (Auto) 0.1 10^3/uL (0.0-0.1) 10/03/21 16:30 Nucleated RBC % (auto) 0 % 10/03/21 16:30 Nucleated RBCs # 0.0 /100WBC 10/03/21 16:30 Sodium 140 mmol/L (136-145) 10/03/21 16:30 Potassium 4.2 mmol/L (3.5-5.1) 10/03/21 16:30 Chloride 100 mmol/L (98-107) 10/03/21 16:30 Carbon Dioxide 28 mmol/L (22-29) 10/03/21 16:30 Anion Gap 16.2 (5-19) 10/03/21 16:30 BUN 15 mg/dL (6-20) 10/03/21 16:30 Creatinine 0.9 mg/dL (0.5-0.9) 10/03/21 16:30 Glucose 84 mg/dL (65-115) 10/03/21 16:30 Calculated Osmolality 290 mOsm/kg (285-295) 10/03/21 16:30 Calcium 10.2 mg/dL (8.5-10.5) 10/03/21 16:30 Total Bilirubin 0.2 mg/dL (0.15-1.2) 10/03/21 16:30 AST 28 U/L (0-32) 10/03/21 16:30 ALT 17 U/L (0-33) 10/03/21 16:30 Alkaline Phosphatase 70 IU/L (35-105) 10/03/21 16:30 Total Protein 7.7 g/dL (6.6-8.7) 10/03/21 16:30 Albumin 4.2 g/dL (3.5-5.2) 10/03/21 16:30 Globulin 3.5 g/dL (1.3-4.6) 10/03/21 16:30 Lipase 26 U/L (13-60) 10/03/21 16:30 HCG, Qual Negative (Negative) 10/03/21 16:12 Urine Opiates Screen Negative ng/mL (Negative) 10/03/21 16:12 Ur Barbiturates Screen Negative ng/mL (Negative) 10/03/21 16:12 Ur Phencyclidine Scrn Negative ng/mL (Negative) 10/03/21 16:12 Ur Amphetamines Screen Negative ng/mL (Negative) 10/03/21 16:12 U Benzodiazepines Scrn Negative ng/mL (Negative) 10/03/21 16:12 Urine Cocaine Screen Negative ng/mL (Negative) 10/03/21 16:12 U Marijuana (THC) Screen Negative ng/mL (Negative) 10/03/21 16:12 Imaging Data Other Imaging: Radiologist's impression: [facility] [address] [place] [address] XRay Report Signed Patient: Shelby Cherry Unit #: [id number] : [id number] Age/Sex: 36 / F ADM Date: 10/03/21 Loc: ER Room/Bed: Attending Dr: Ordering Provider/Ordering MD: Vivek Loco MD Date of Service: 10/03/21 Procedure(s): XR KUB portable [id number] Accession Number(s): [id number] Report Number: [id number] PROCEDURE INFORMATION: Exam: XR Abdomen Exam date and time: 10/03/2021 3:09 PM Age: 36 years old Clinical indication: Other: Swallowed foreign body; Additional info: Swallowed plastic TECHNIQUE: Imaging protocol: Radiologic exam of the abdomen. Views: Frontal supine view of the abdomen. 1 View. COMPARISON: CR (ABDOMEN, ) 08/28/2021 6:51 PM FINDINGS: Gastrointestinal tract: Normal. No bowel dilation. There is a radiodense object present in the right lower quadrant measuring 21 mm x 21 mm. This finding was not present on prior examination and correlates with a GI tract foreign body. This finding appears to be in the projection of the cecum but may be in small bowel near the cecum. Bones/joints: Unremarkable. XR/XR KUB portable [id number] IMPRESSION: 1. No acute GI abnormality. 2. Radiodense foreign body right lower quadrant ? Dictated By: Alvaro Chapman Signed By: Alvaro Chapman Signed Date/Time: 10/03/21 1550 DD/ 1509 Discharge Plan Discharge Patient Disposition: Home Clinical Impression: Depression with suicidal ideation, Foreign body ingestion Condition: Stable Prescriptions: New acetaminophen 500 mg tablet 500 mg PO Q6H PRN (Reason: pain) 5 Days Qty: 20 0RF Pepcid 20 mg tablet 20 mg PO BID PRN (Reason: abdominal pain) 10 Days Qty: 20 0RF Maalox Advanced 1,000-60 mg tablet,chewable 1 tab PO TID PRN (Reason: abdominal pain) 7 Days Qty: 21 0RF No Action haloperidol 5 mg tablet 5 mg PO DAILY PRN (Reason: severe agitation) Qty: 30 1RF clonazepam 0.5 mg tablet 0.5 mg PO TID Qty: 90 2RF docusate sodium [Colace] 100 mg capsule 100 mg PO BID PRN (Reason: constipation) 30 Days Qty: 60 3RF polyethylene glycol 3350 [Miralax] 17 gram powder in packet 17 g PO DAILY PRN (Reason: constipation) 30 Days Qty: 30 0RF Rx Instructions: use once daily, until you have a regular soft BM daily, then use as needed magnesium citrate [Citrate of Magnesia] Solution 90 ml PO DAILY PRN (Reason: constipation) Qty: 296 0RF acetaminophen 325 mg capsule 650 mg PO Q6H PRN (Reason: fever of 100.4 or greater and/or pain) Qty: 120 2RF Rx Instructions: Not to exceed 4,000 mg in 24 hr dextromethorphan-guaifenesin [Safe Tussin DM] 10-100 mg/5 mL liquid See Rx Instructions .ROUTE .COMPLEX Qty: 500 0RF Dose Instruction: take 10ml BY MOUTH EVERY 6 HOURS NEEDED FOR cough Rx Instructions: take 10ml BY MOUTH EVERY 6 HOURS NEEDED FOR cough polyethylene glycol 3350 [Miralax] 17 gram/dose powder 17 g PO DAILY PRN (Reason: constipation) Qty: 238 2RF fluvoxamine 100 mg tablet 100 mg PO BID Qty: 60 2RF Rx Instructions: take with 50mg twice daily fluvoxamine 50 mg tablet 50 mg PO BID Qty: 60 2RF Rx Instructions: take with 100mg twice daily ergocalciferol (vitamin D2) 1,250 mcg (50,000 unit) capsule See Rx Instructions .ROUTE .COMPLEX Qty: 4 5RF Dose Instruction: TAKE ONE CAPSULE BY MOUTH ONCE WEEKLY Rx Instructions: TAKE ONE CAPSULE BY MOUTH ONCE WEEKLY medroxyprogesterone 150 mg/mL suspension See Rx Instructions .ROUTE .COMPLEX Qty: 1 3RF Dose Instruction: INJECT 1ML INTRAMUSCULARLY ONCE EVERY THREE MONTHS Rx Instructions: INJECT 1ML INTRAMUSCULARLY ONCE EVERY THREE MONTHS Depakote ER 500 mg tablet extended release 24 hr 500 mg PO BID Qty: 60 2RF levothyroxine 125 mcg tablet 125 mcg PO DAILY@08 omeprazole 20 mg capsule,delayed release(DR/EC) 20 mg PO BID@08,20 quetiapine 100 mg Tablet 300 mg PO BEDTIME 30 Days Qty: 90 1RF Discharge Orders: Discharge ED (Routine); Ordered 10/03/21 Ordered By: Vivek Loco Referrals: Ольга Quarles, [employer] OPERATOR [Primary Care Provider] - Discharge Diet: Advance as tolerated Discharge Activity: Increase activity as tolerated Patient Instructions: Abdominal Pain (ED) Activity Restrictions/Additional Instructions: Please come back if you have any worsening abdominal pain, fever or chills, nausea or vomiting, diarrhea, blood in the stool, inability hold down liquid or solids, or any new concerning complaints. Our case reviewer will have you follow-up with Dr. Sharma in the next few days for the foreign object in your body. You would be expected to have a phone call with our case reviewer who will put you on the schedule. You can expect a call from us in the next 2-3 days. If you don't hear from us, call us back in the emergency room at [phone]. Coding Level of Care Code ED [employer] for Lasha Fwd Exam Comprehensive
[2021-10-03 16:33] LABS: Amphetamines Screen Urine Negative (Negative); Barbiturates Screen Urine Negative (Negative); Benzodiazepines Screen Urine Negative (Negative); Cocaine Screen Urine Negative (Negative); Opiate Screen Urine Negative (Negative); PCP Screen Urine Negative (Negative); THC Screen Urine Negative (Negative)
[2021-10-03 16:42] LABS: Basophils # 0.1 10^3/uL (0.0-0.1); Basophils % 0.5 %; Eosinophils % 0.3 %; Hematocrit 44.3 % (37.0-47.0); Hemoglobin 14.3 g/dL (11.5-15.3); Lymphocytes # 4.3 10^3/uL (0.8-4.8); Lymphocytes % 32.1 %; Mean Corpuscular HGB Conc 32.3 g/dL (30.0-36.0); Mean Corpuscular Hemoglobin 31.2 pg (28.0-34.0); Mean Corpuscular Volume 96.5 fl (81-99); Mean Platelet Volume 10.4 fL (7.4-10.4); Monocytes # 1.2 10^3/uL (0.2-0.9); Monocytes % 9.1 %; Neutrophils # 7.67 10^3/uL (1.8-7.7); Neutrophils % 57.5 %; Nucleated Red Blood Cells % 0 %; Platelet Count 356 10^3/cmm (130-400); Red Blood Count 4.59 10^6/uL (4.1-5.3); Red Cell Distribution Width 14.8 % (12.1-15.1); White Blood Count 13.3 10^3/uL (4.0-10.0)
[2021-10-03 16:50] LABS: HCG Qualitative Urine. Negative (Negative)
[2021-10-03 17:11] LABS: Alanine Aminotransferase 17 U/L (0-33); Albumin Level 4.2 g/dL (3.5-5.2); Alkaline Phosphatase 70 IU/L (35-105); Anion Gap 16.2 (5-19); Aspartate Amino Transferase 28 U/L (0-32); Blood Urea Nitrogen 15 mg/dL (6-20); Calcium 10.2 mg/dL (8.5-10.5); Carbon Dioxide 28 mmol/L (22-29); Chloride 100 mmol/L (98-107); Globulin 3.5 g/dL (1.3-4.6); Glomerular Filtration Rate 70.1 mL/min (90-130); Glucose 84 mg/dL (65-115); Lipase 26 U/L (13-60); Osmolality Calculated 290 mOsm/kg (285-295); Potassium 4.2 mmol/L (3.5-5.1); Sodium 140 mmol/L (136-145); Total Bilirubin 0.2 mg/dL (0.15-1.2); Total Protein 7.7 g/dL (6.6-8.7)
[2021-10-03 17:46] VITALS: PULSE 80; O2SAT 97
[2021-10-03 18:11] LABS: Acetaminophen < 5.0 ug/mL (10-30); Alcohol Level < 10 mg/dL (0-10); Salicylate < 0.3 mg/dL (3-10)
--- NOTE | 2021-10-04 12:41 | DCPLANNER ---
Addendum entered by Swapna Tinajero 10/07/21 14:42: Jacquelyn from [facility] emailed outsole caser stating that patient was seen by Latricia Sanders at [facility] on 10.04.21. Original Note: business systems manager had message to refer patient to [facility]. business systems manager sent patients information to Jacquelyn Heck at [facility]. Patients information will be reviewed and clinic will call patient with appointment information.
--- NOTE | 2021-10-04 13:09 | DCPLANNER ---
Addendum entered by Swapna Tinajero 10/07/21 14:49: Patient had a follow up appointment scheduled for 10.07.[address] Sharma at general surgery - patient did attend appointment. Original Note: assistant front office manager had message to schedule a follow up appointment for patient with general surgery. assistant front office manager sent patients information to the front office staff at general surgery. Patients information will be printed and reviewed. Clinic will call patient with appointment information.
== END 2021-10-03 17:48 | disposition home or self-care (01) ==
PROVIDERS: Emergency Provider Emergency Medicine; PCP Nurse Practitioner Family
DX: T18.9XXA Foreign body of alimentary tract, part unspecified, initial encounter (principal); X58.XXXA Exposure to other specified factors, initial encounter; F32.A Depression, unspecified; R45.851 Suicidal ideations
CPT/HCPCS: 74018; 80053; 80306; 80307; 81025; 83690; 85025; 99284

== ENCOUNTER → 2021-10-07 13:59 | Outpatient (BNVA) | payer MEDICAID, SELFPAY | PROVIDERS: PCP Nurse Practitioner Family; Visit Provider Surgery | DX: T18.9XXA Foreign body of alimentary tract, part unspecified, initial encounter (principal); X58.XXXA Exposure to other specified factors, initial encounter | CPT/HCPCS: 74018; 99213 ==

== ENCOUNTER → 2021-10-11 10:30 | Outpatient (BNVA) | payer MEDICAID, SELFPAY | PROVIDERS: PCP Nurse Practitioner Family; Visit Provider Family Medicine | DX: J02.9 Acute pharyngitis, unspecified (principal); H66.92 Otitis media, unspecified, left ear | CPT/HCPCS: 87071; 87880 ==

== ENCOUNTER 2021-10-13 16:23 | Emergency (ER) | payer MEDICAID, SELFPAY ==
[2021-10-13 16:34] VITALS: BP 129/84; PULSE 97; RESP 16; TEMP 36.4; O2SAT 97
--- NOTE | 2021-10-13 16:42 | XRR_ITS ---
PROCEDURE INFORMATION: Exam: XR Abdomen Exam date and time: 10/13/2021 4:55 PM Age: 36 years old Clinical indication: Pain and screening exam; Other: Foreign body; Abdominal pain; Patient HX: PT swallowed battery, checking for foriegn body TECHNIQUE: Imaging protocol: Radiologic exam of the abdomen. Views: Frontal supine view of the abdomen. 1 View. COMPARISON: CR XR KUB [id number] 10/07/2021 2:22 PM FINDINGS: Tubes, catheters and devices: 3.7 cm suspected foreign body, may reflect a battery, seen in the region of the ascending colon. Gastrointestinal tract: Normal. No bowel dilation. Bones/joints: Unremarkable. XR/XR KUB portable [id number] IMPRESSION: 3.7 cm suspected foreign body, may reflect a battery, seen in the region of the ascending colon.
--- NOTE | 2021-10-13 16:45 | PC.NURSE ---
pt reports upper abdominal pain. pt reports she swallowed a single remote control battery today. Unknown time or what of battery. pt reports she cannot remember why she swallowed a battery. When asked if pt was trying to hurt herself, pt replied yes. pt reports hx of thoughts of wanting to hurt herself, denies HI. Denies nausea. Reports diarrhea. Pt reports blood in urine, denies burning with urination. Pt is oriented to person and place, disoriented to year. Pt speaking in complete sentences without difficulty. When physickira arrived in room and asked about the battery. pt reports I wished I was .
--- NOTE | 2021-10-13 16:55 | PC.NURSE ---
pt reports auditory hallucinations, reports hears bad guys on the right side of her head and good guys on the left side. denies visual hallucinations.
[2021-10-13 17:06] VITALS: BP 118/88; PULSE 85; O2SAT 96
[2021-10-13 17:32] LABS: Basophils # 0.1 10^3/uL (0.0-0.1); Basophils % 0.4 %; Eosinophils # 0.1 10^3/uL (0.0-0.8); Eosinophils % 0.4 %; Hematocrit 43.8 % (37.0-47.0); Hemoglobin 14.2 g/dL (11.5-15.3); Lymphocytes # 4.7 10^3/uL (0.8-4.8); Lymphocytes % 32.2 %; Mean Corpuscular HGB Conc 32.4 g/dL (30.0-36.0); Mean Corpuscular Hemoglobin 31.1 pg (28.0-34.0); Mean Corpuscular Volume 96.1 fl (81-99); Mean Platelet Volume 10.2 fL (7.4-10.4); Monocytes # 1.3 10^3/uL (0.2-0.9); Neutrophils # 8.38 10^3/uL (1.8-7.7); Neutrophils % 57.5 %; Nucleated Red Blood Cells % 0 %; Platelet Count 359 10^3/cmm (130-400); Red Blood Count 4.56 10^6/uL (4.1-5.3); Red Cell Distribution Width 14.8 % (12.1-15.1); White Blood Count 14.6 10^3/uL (4.0-10.0)
[2021-10-13 18:00] VITALS: BP 119/70; PULSE 98; O2SAT 97
[2021-10-13 18:04] LABS: Alanine Aminotransferase 22 U/L (0-33); Albumin Level 4.1 g/dL (3.5-5.2); Alkaline Phosphatase 81 U/L (35-105); Aspartate Amino Transferase 24 U/L (0-32); Blood Urea Nitrogen 17 mg/dL (6-20); Calcium 9.7 mg/dL (8.5-10.5); Carbon Dioxide 26 mmol/L (22-29); Chloride 103 mmol/L (98-107); Globulin 3.8 g/dL (1.3-4.6); Glomerular Filtration Rate 80.3 mL/min (90-130); Glucose 75 mg/dL (65-115); Osmolality Calculated 294 mOsm/kg (285-295); Sodium 142 mmol/L (136-145); Total Bilirubin 0.2 mg/dL (0.15-1.2); Total Protein 7.9 g/dL (6.6-8.7)
[2021-10-13 18:05] LABS: Acetaminophen < 5.0 ug/mL (10-30)
--- NOTE | 2021-10-13 18:30 | ED.C_ITS ---
HPI - Psych General: Chief Complaint: Psychiatric Symptoms Stated Complaint: Swallowed a battery Time Seen by Provider: 10/13/21 16:40 History of Present Illness: Patient is a 36-year-old female presenting today with swallowed a battery. Patient is known to this ED. Will frequently swallowed batteries. She notes today she was able to get a hold of her remote popped with the battery and swallowed it. This was done in an attempt to hurt herself. She denies taking or doing anything else to hurt herself. Review of Systems General: Reports: 10 or more systems reviewed and unremarkable except in HPI and below PFS ED PFSH: Medical History Constipation Depression H/O swallowed foreign body Hypothyroidism Major depressive disorder, recurrent severe without psychotic features Mental disability Post-traumatic stress disorder, chronic Psychiatric care Psychoses Seizure disorder Surgical History H/O esophagogastroduodenoscopy (07/05/20) removal of FB History of cholecystectomy Social History Smoking and tobacco status: never smoked Second hand smoke exposure: No Alcohol intake: never Caregiver/support person: Yes Lives independently: No Household members: other Details: LIVES IN A INTERMEDIATE Housing: Assisted Living Facility Marital status: Single Current occupational status: disabled History of recent travel: No Current gender identity: Female Additional social history: Patient states that she grew up in [place]. She is currently living in a care home and is under guardianship. She enjoys playing games and eating hamburgers. She is despondent that there is no place in [place] where she can get a hamburger and does not know how to make one on her own. Physical Exam Const: COMMON NORMALS: no acute distress, patient oriented x3 and alert GENERAL APPEARANCE: cooperative ORIENTATION/CONSCIOUSNESS: Yes awake, Yes oriented to person, Yes oriented to place and Yes oriented to time HENMT: COMMON NORMALS: normocephalic, atraumatic, external ears normal, Normal external nose present and moist oral mucous membranes HEAD & SCALP: normal to inspection, normocephalic and atraumatic NOSE: Normal external nose present GENERAL EAR: hearing grossly impaired EXTERNAL EAR: Yes external ears normal Eye: COMMON NORMALS: Equal, round and reactive pupils present, EOMs intact bilaterally, conjunctivae normal and no scleral icterus GENERAL EYE: appearance normal, both eyes and all related structures EYELID: eyelids normal CONJUNCTIVA: Yes conjunctivae normal SCLERA: sclerae normal PUPIL: Yes Equal, round and reactive pupils present Neck/C-Spine: COMMON NORMALS: full ROM, supple and no JVD GENERAL: Yes normal visual inspection Lymph: LYMPHATIC: no lymphadenopathy noted and no lymphedema noted Chest: COMMONS NORMALS: normal inspection of the chest Resp: COMMON NORMALS: normal respiratory effort, No retractions and No use of accessory muscles Cardio: COMMON NORMALS: no JVD, regular rate and regular rhythm RATE: regular rate RHYTHM: regular rhythm GI: COMMON NORMALS: Normal to inspection, nondistended, normoactive bowel sounds present : COMMON NORMALS: Yes no CVA tenderness BLADDER/KIDNEY EXAM: Yes no CVA tenderness Back/Pelvis: COMMON NORMALS: no CVA tenderness and thoracic and lumbar spine normal to inspection Extremity: COMMON NORMALS: normal to inspection, full ROM and capillary refill normal GENERAL: Yes normal exam except as noted Neuro: COMMON NORMALS: patient oriented x3, CN's II-XII intact bilaterally, moves all extremities, no focal motor deficits, no sensory deficits noted and gait normal SENSORIUM/ORIENTATION: Yes alert, Yes oriented to person, Yes oriented to place and Yes oriented to time Psych: COMMON NORMALS: mental status grossly normal, Normal thought process present, cooperative and normal affect THOUGHT PROCESS: Normal thought process present Skin: COMMON NORMALS: no rashes or lesions noted and no wounds GENERAL SKIN EXAM: no rashes or lesions noted Course Vital Signs: Vital signs: Vital Signs Temperature 97.5 F L 10/13/21 16:34 Pulse Rate 95 10/13/21 18:36 Respiratory Rate 16 10/13/21 16:34 Blood Pressure 119/70 10/13/21 18:36 Pulse Oximetry 97 10/13/21 18:36 Oxygen Delivery Me thod 10/13/21 18:00 MDM - Psych Medical Decision Making Patient is a 36-year-old female presenting today with battery ingestion. Appears to be a AA or AAA battery. This has been followed by her multiple times in the past. No evidence of button battery. Patient is p.o. tolerant with normal vital signs. Medical clearing's exam was performed. Spoke to psychology on-call. Dr. Kendall. He recommended routine outpatient follow-up. Will discharge patient back to the custody of her caregivers. Lab Data : 10/13/21 17:23 10/13/21 17:23 Radiology Impressions KUB X-Ray 10/13/21 16:42 IMPRESSION: 3.7 cm suspected foreign body, may reflect a battery, seen in the region of the ascending colon. Laboratory Results WBC 14.6 10^3/uL (4.0-10.0) H 10/13/21 17:23 RBC 4.56 10^6/uL (4.1-5.3) 10/13/21 17:23 Hgb 14.2 g/dL (11.5-15.3) 10/13/21 17: Hct 43.8 % (37.0-47.0) 10/13/21 17: MCV 96.1 fl (81-99) 10/13/21 17: MCH 31.1 pg (28.0-34.0) 10/13/21 17: MCHC 32.4 g/dL (30.0-36.0) 10/13/21 17:23 RDW 14.8 % (12.1-15.1) 10/13/21 17:23 Plt Count 359 10^3/cmm (130-400) 10/13/21 17:23 MPV 10.2 fL (7.4-10.4) 10/13/21 17:23 Neut % (Auto) 57.5 % 10/13/21 17: Lymph % (Auto) 32.2 % 10/13/21 17:23 [place] % (Auto) 9.0 % 10/13/21 17:23 Eos % (Auto) 0.4 % 10/13/21 17:23 Baso % (Auto) 0.4 % 10/13/21 17:23 Neut # (Auto) 8.38 10^3/uL (1.8-7.7) H 10/13/21 17:23 Lymph # (Auto) 4.7 10^3/uL (0.8-4.8) 10/13/21 17:23 [place] # (Auto) 1.3 10^3/uL (0.2-0.9) H 10/13/21 17:23 Eos # (Auto) 0.1 10^3/uL (0.0-0.8) 10/13/21 17:23 Baso # (Auto) 0.1 10^3/uL (0.0-0.1) 10/13/21 17:23 Nucleated RBC % (auto) 0 % 10/13/21 17:23 Nucleated RBCs # 0.0 /100WBC 10/13/21 17:23 Sodium 142 mmol/L (136-145) 10/13/21 17:23 Potassium 4.0 mmol/L (3.5-5.1) 10/13/21 17:23 Chloride 103 mmol/L (98-107) 10/13/21 17:23 Carbon Dioxide 26 mmol/L (22-29) 10/13/21 17:23 Anion Gap 17.0 (5-19) 10/13/21 17:23 BUN 17 mg/dL (6-20) 10/13/21 17:23 Creatinine 0.8 mg/dL (0.5-0.9) 10/13/21 17:23 GFR Calculation 80.3 mL/min (90-130) L 10/13/21 17:23 Glucose 75 mg/dL (65-115) 10/13/21 17:23 Calculated Osmolality 294 mOsm/kg (285-295) 10/13/21 17:23 Calcium 9.7 mg/dL (8.5-10.5) 10/13/21 17:23 Total Bilirubin 0.2 mg/dL (0.15-1.2) 10/13/21 17:23 AST 24 U/L (0-32) 10/13/21 17:23 ALT 22 U/L (0-33) 10/13/21 17:23 Alkaline Phosphatase 81 U/L (35-105) 10/13/21 17:23 Total Protein 7.9 g/dL (6.6-8.7) 10/13/21 17:23 Albumin 4.1 g/dL (3.5-5.2) 10/13/21 17:23 Globulin 3.8 g/dL (1.3-4.6) 10/13/21 17:23 Urine Color Yellow (Yellow) 10/13/21 19:00 Urine Appearance Sl hazy (CLEAR) 10/13/21 19:00 Urine pH 5 (5-7) 10/13/21 19:00 Ur Specific Marshall 1.030 (1.005-1.030) 10/13/21 19:00 Urine Protein Trace (Negative) 10/13/21 19:00 Urine Glucose (UA) Norm (Normal) 10/13/21 19:00 Urine Ketones Negative (Negative) 10/13/21 19:00 Urine Blood 3+ (Negative) H 10/13/21 19:00 Urine Nitrate Negative (Negative) 10/13/21 19:00 Urine Bilirubin Neg (Negative) 10/13/21 19:00 Urine Urobilinogen Norm mg/dL (Negative) 10/13/21 19:00 Ur Leukocyte Esterase 2+ (Negative) H 10/13/21 19:00 Urine RBC 0-4 /hpf (0-2) H 10/13/21 19:00 Urine WBC 15-25 /hpf (0-5) H 10/13/21 19:00 Ur Squamous Epith Cells 10-15 /hpf (0-5) H 10/13/21 19:00 Amorphous Sediment Not Reportable 10/13/21 19:00 Urine Bacteria 1+ /hpf (NONE) H 10/13/21 19:00 Salicylates 2.0 mg/dL (3-10) L 10/13/21 17:23 Urine Opiates Screen Negative ng/mL (Negative) 10/13/21 19:00 Acetaminophen < 5.0 ug/mL (10-30) L 10/13/21 17:23 Ur Barbiturates Screen Negative ng/mL (Negative) 10/13/21 19:00 Ur Phencyclidine Scrn Negative ng/mL (Negative) 10/13/21 19:00 Ur Amphetamines Screen Negative ng/mL (Negative) 10/13/21 19:00 U Benzodiazepines Scrn Negative ng/mL (Negative) 10/13/21 19:00 Urine Cocaine Screen Negative ng/mL (Negative) 10/13/21 19:00 U Marijuana (THC) Screen Negative ng/mL (Negative) 10/13/21 19:00 Discharge Plan Discharge Patient Disposition: Home Clinical Impression: Intentional ingestion of batteries Condition: Stable Prescriptions: No Action haloperidol 5 mg tablet 5 mg PO DAILY PRN (Reason: severe agitation) Qty: 30 1RF clonazepam 0.5 mg tablet 0.5 mg PO TID Qty: 90 2RF docusate sodium [Colace] 100 mg capsule 100 mg PO BID PRN (Reason: constipation) 30 Days Qty: 60 3RF polyethylene glycol 3350 [Miralax] 17 gram powder in packet 17 g PO DAILY PRN (Reason: constipation) 30 Days Qty: 30 0RF Rx Instructions: use once daily, until you have a regular soft BM daily, then use as needed magnesium citrate [Citrate of Magnesia] Solution 90 ml PO DAILY PRN (Reason: constipation) Qty: 296 0RF cefdinir 300 mg capsule 300 mg PO BID Qty: 20 0RF ibuprofen 800 mg tablet 800 mg PO TID PRN (Reason: ear pain) Qty: 30 0RF acetaminophen 325 mg capsule 650 mg PO Q6H PRN (Reason: fever of 100.4 or greater and/or pain) Qty: 120 2RF Rx Instructions: Not to exceed 4,000 mg in 24 hr dextromethorphan-guaifenesin [Safe Tussin DM] 10-100 mg/5 mL liquid See Rx Instructions .ROUTE .COMPLEX Qty: 500 0RF Dose Instruction: take 10ml BY MOUTH EVERY 6 HOURS NEEDED FOR cough Rx Instructions: take 10ml BY MOUTH EVERY 6 HOURS NEEDED FOR cough polyethylene glycol 3350 [Miralax] 17 gram/dose powder 17 g PO DAILY PRN (Reason: constipation) Qty: 238 2RF fluvoxamine 100 mg tablet 100 mg PO BID Qty: 60 2RF Rx Instructions: take with 50mg twice daily fluvoxamine 50 mg tablet 50 mg PO BID Qty: 60 2RF Rx Instructions: take with 100mg twice daily ergocalciferol (vitamin D2) 1,250 mcg (50,000 unit) capsule See Rx Instructions .ROUTE .COMPLEX Qty: 4 5RF Dose Instruction: TAKE ONE CAPSULE BY MOUTH ONCE WEEKLY Rx Instructions: TAKE ONE CAPSULE BY MOUTH ONCE WEEKLY medroxyprogesterone 150 mg/mL suspension See Rx Instructions .ROUTE .COMPLEX Qty: 1 3RF Dose Instruction: INJECT 1ML INTRAMUSCULARLY ONCE EVERY THREE MONTHS Rx Instructions: INJECT 1ML INTRAMUSCULARLY ONCE EVERY THREE MONTHS Depakote ER 500 mg tablet extended release 24 hr 500 mg PO BID Qty: 60 2RF levothyroxine 125 mcg tablet 125 mcg PO DAILY@08 omeprazole 20 mg capsule,delayed release(DR/EC) 20 mg PO BID@08,20 quetiapine 100 mg Tablet 300 mg PO BEDTIME 30 Days Qty: 90 1RF Discharge Orders: Discharge ED (Routine); Ordered 10/13/21 Ordered By: Jairo Singh Referrals: Ольга Quarles FNP [Primary Care Provider] - 1-3 days Rome Kendall MD [Physician] - Patient Instructions: Foreign Body Ingestion (ED) Coding Level of Care Code ED [employer] Assistant for Chg Fwd Exam Comprehensive
[2021-10-13 18:36] VITALS: BP 119/70; PULSE 95; O2SAT 97
--- NOTE | 2021-10-13 19:18 | PC.NURSE ---
report given to MARCELINA Miller
[2021-10-13 19:21] LABS: Amphetamines Screen Urine Negative (Negative); Barbiturates Screen Urine Negative (Negative); Benzodiazepines Screen Urine Negative (Negative); Cocaine Screen Urine Negative (Negative); Opiate Screen Urine Negative (Negative); PCP Screen Urine Negative (Negative); THC Screen Urine Negative (Negative)
[2021-10-13 19:22] LABS: Add Urine Microscopic? YES; Bilirubin Urine Neg (Negative); Blood Urine 3+ (Negative); Glucose Urine UA Norm (Normal); Ketones Urine Negative (Negative); Leukocyte Esterase Urine 2+ (Negative); Nitrate Urine Negative (Negative); Protein Urine Trace (Negative); RBC Urine 0-4 /hpf (0-2); Urine Appearance SL Hazy (CLEAR); Urine Color Yellow (Yellow); Urobilinogen Urine Norm (Negative); pH Urine 5 (5-7)
[2021-10-13 19:23] LABS: Add Urine Culture? No; Bacteria Urine 1+ /hpf; WBC Urine 15-25 /hpf (0-5)
[2021-10-13 22:15] VITALS: BP 112/85; PULSE 92; RESP 15; TEMP 36.9; O2SAT 97
[2021-10-13 22:18] VITALS: BP 112/85; PULSE 92; RESP 15; TEMP 36.9; O2SAT 97
--- NOTE | 2021-10-14 12:00 | DCPLANNER ---
Addendum entered by Swapna Tinajero 10/21/21 08:09: collections manager received the following message from general surgery regarding patients follow up appointment: Spoke with Dr. Sharma and the nurses Dr. Sharma stated he wants a KUB done next week, the nurses are putting order in for that & making patient aware.. If patient starts to have issues then he would like her to return to the ED.. No follow up in clinic is needed... Original Note: collections manager had message to schedule a follow up appointment for patient with general surgery. collections manager sent patients information to the front office staff at general surgery. Patients information will be printed and reviewed. Clinic will call patient with appointment information.
== END 2021-10-13 22:19 | disposition home or self-care (01) ==
PROVIDERS: Emergency Provider Emergency Medicine; PCP Nurse Practitioner Family
DX: T18.9XXA Foreign body of alimentary tract, part unspecified, initial encounter (principal); X83.8XXA Intentional self-harm by other specified means, initial encounter
CPT/HCPCS: 74018; 80053; 80306; 80307; 81001; 85025; 99284

== ENCOUNTER → 2021-10-15 09:52 | Outpatient (BNVA) | payer MEDICAID, SELFPAY | PROVIDERS: PCP Nurse Practitioner Family; Visit Provider Nurse Practitioner Family | DX: T18.9XXA Foreign body of alimentary tract, part unspecified, initial encounter (principal) | CPT/HCPCS: 74018 ==

== ENCOUNTER → 2021-10-19 14:12 | Outpatient (BNVA) | payer MEDICAID, SELFPAY | PROVIDERS: PCP Nurse Practitioner Family; Visit Provider Nurse Practitioner Family | DX: T18.9XXD Foreign body of alimentary tract, part unspecified, subsequent encounter (principal); X58.XXXD Exposure to other specified factors, subsequent encounter | CPT/HCPCS: 74018 ==

== ENCOUNTER 2021-11-19 20:05 | Inpatient (IN) | payer MEDICAID, SELFPAY ==
[2021-11-19 20:07] VITALS: BP 141/82; PULSE 93; RESP 16; TEMP 36.1; O2SAT 94
--- NOTE | 2021-11-19 20:19 | XRR_ITS ---
PROCEDURE INFORMATION: Exam: XR Abdomen Exam date and time: 11/19/2021 9:26 PM Age: 36 years old Clinical indication: Other: Foreign body; Prior surgery; Surgery type: Gb; Patient HX: Intentional ingestion of battery. ; Additional info: Swallowed battery TECHNIQUE: Imaging protocol: Radiologic exam of the abdomen. Views: Frontal supine view of the abdomen. 1 View. COMPARISON: CR XR KUB [id number] 10/19/2021 2:24 PM FINDINGS: Tubes, catheters and devices: 4.2 x 1.1 cm metallic battery shaped foreign body over the fundus/body of the stomach. Gastrointestinal tract: Normal. No bowel dilation. Bones/joints: Unremarkable. XR/XR KUB portable [id number] IMPRESSION: 4.2 x 1.1 cm metallic battery shaped foreign body over the fundus/body of the stomach.
--- NOTE | 2021-11-19 20:19 | XRR_ITS ---
PROCEDURE INFORMATION: Exam: XR Chest Exam date and time: 11/19/2021 9:23 PM Age: 36 years old Clinical indication: Other: Foreign body; Patient HX: Intentional ingestion of battery; Additional info: Swallowed battery TECHNIQUE: Imaging protocol: Radiologic exam of the chest. Views: 1 view. COMPARISON: CR XR chest 1V portable [id number] 08/28/2021 6:40 PM FINDINGS: Tubes, catheters and devices: Metallic battery shaped foreign body over the body of the stomach. Lungs: Poor inspiratory effort with some crowding of pulmonary markings and possible accentuation of the apparent heart size. Pleural spaces: Unremarkable. No pleural effusion. No pneumothorax. Heart/Mediastinum: See Lungs finding. Bones/joints: Unremarkable. XR/XR chest 1V portable [id number] IMPRESSION: Metallic battery shaped foreign body over the body of the stomach.
--- NOTE | 2021-11-19 20:27 | ED_ITS ---
HPI - General Adult General: Chief complaint: Psychiatric Symptoms Stated complaint: Swallowed AAA Battery Time Seen by Provider: 11/19/21 20:18 History of Present Illness: HPI: [36]yo patient w/ hx of depression, auditory hallucination presenting to the emergency room for concerns of suicide attempt. Patient swallowed an AAA battery earlier today. Patient complains of midepigastric abdominal pain. Denies any nausea/vomiting chest pain or throat pain. On arrival, the patient is AAOx3 and cooperative with my evaluation. No focal complaints of chest pain, shortness of breath, palpitations, N/V, focal GI/ complaints. Currently denies HI. He reports auditory hallucinations of hearing voices telling her to kill herself. Onset: 1hr ago Duration: ongoing Location: home Severity: severe Associated symptoms: Deny chest pain, dyspnea, nausea, rash, palpitations or vomiting Review of Systems Const: Denies: fever(s) or chills Eyes: Denies: change in vision ENMT: Denies: mouth pain Card: Denies: chest pain or palpitations Resp: Denies: dyspnea or non-productive cough GI: Reports: abdominal pain (+mid-epigastric abd pain); Denies: nausea, vomiting or diarrhea : Denies: dysuria Musc: Denies: extremity pain Skin/Breast: Denies: rash or new lesions Neuro: Denies: weakness in extremities Psych: Reports: depression, auditory hallucinations and suicidal ideation Hayden/Lymph: Denies: easy bruising PFSH ED PFSH: Medical History Constipation Depression H/O swallowed foreign body Hypothyroidism Major depressive disorder, recurrent severe without psychotic features Mental disability Post-traumatic stress disorder, chronic Psychiatric care Psychoses Seizure disorder Surgical History H/O esophagogastroduodenoscopy (07/05/20) removal of FB History of cholecystectomy Social History Smoking and tobacco status: former smoker Second hand smoke exposure: No Alcohol intake: never Caregiver/support person: Yes Lives independently: No Household members: other Details: LIVES IN A [facility] Housing: Assisted Living Facility Marital status: Single Current occupational status: disabled History of recent travel: No Current gender identity: Female Additional social history: Patient states that she grew up in [place]. She is currently living in a senior living and is under guardianship. She enjoys playing games and eating hamburgers. She is despondent that there is no place in [place] where she can get a hamburger and does not know how to make one on her own. Physical Exam Const: COMMON NORMALS: alert HENMT: COMMON NORMALS: atraumatic HEAD & SCALP: atraumatic MOUTH: moist mucous membranes not abnormal Eye: COMMON NORMALS: EOMs intact bilaterally and conjunctivae normal CONJUNCTIVA: Yes conjunctivae normal Neck/C-Spine: COMMON NORMALS: full ROM and supple Resp: COMMON NORMALS: normal respiratory effort and clear to auscultation bilaterally AUSCULTATION: clear to auscultation bilaterally Cardio: COMMON NORMALS: regular rate RATE: regular rate GI: COMMON NORMALS: Soft to palpation PALPATION: Yes Soft to palpation OTHER: +mild mid-epigastric focal TTP. NO guarding rebound, guarding, rigidity. No CVA tenderness to percussion. Neg Vallecillo/Neg McBurney's point tenderness, no suprabupic tenderness to palpation. Extremity: COMMON NORMALS: full ROM Neuro: SENSORIUM/ORIENTATION: Yes alert MOTOR EXAM: No Abnormal motor strength present and Other motor observations present (no focal motor deficits) Psych: COMMON NORMALS: speech normal SPEECH: Yes normal speech MOOD & AFFECT: Yes depressed mood Course Vital Signs: Vital signs: Vital Signs Temperature 96.9 F L 11/19/21 20:07 Pulse Rate 93 11/19/21 20:07 Respiratory Rate 16 11/19/21 20:07 Blood Pressure 141/82 11/19/21 20:07 Pulse Oximetry 94 11/19/21 20:07 Oxygen Delivery Me thod 11/19/21 20:07 MDM - General Adult Medical Decision Making [36]yo patient w/ hx of depression and hallucinations presenting for attempted suicide. HDS, exam within normal limit Thoughts are linear and organized, and the patient has no HI. Clinically the patient displays no overt toxidrome; they are well appearing, with low suspicion for toxic ingestion given history and exam. Symptoms unlikely 2/2 anemia, hypothyroidism, infection, or ICH. Workup: CBC, CMP, Lipase, salicylate/tylenol, UDS, XR chest/KUB Lab findings: wnl [9:45pm] On reassessment, labs and workup wnl. Patient is hemodynamically stable with no acute medical complaints. Case discussed with psychiatric provider Dr. Dowling at [facility] psych inpatient with recommendation for admission. KUB showed battery in the stomach. Case was discussed with Dr. Justin who will follow patient. Disposition: Psych Lab Data : 11/19/21 21:14 11/19/21 21:14 Radiology Impressions Chest X-Ray 11/19/21 20:19 IMPRESSION: Metallic battery shaped foreign body over the body of the stomach. KUB X-Ray 11/19/21 20:19 IMPRESSION: 4.2 x 1.1 cm metallic battery shaped foreign body over the fundus/body of the stomach. Laboratory Results WBC 15.1 10^3/uL (4.0-10.0) H 11/19/21 21:14 RBC 4.14 10^6/uL (4.1-5.3) 11/19/21 21:14 Hgb 13.1 g/dL (11.5-15.3) 11/19/21 21:14 Hct 39.9 % (37.0-47.0) 11/19/21 21:14 MCV 96.4 fl (81-99) 11/19/21 21:14 MCH 31.6 pg (28.0-34.0) 11/19/21 21:14 MCHC 32.8 g/dL (30.0-36.0) 11/19/21 21:14 RDW 15.7 % (12.1-15.1) H 11/19/21 21:14 Plt Count 305 10^3/cmm (130-400) 11/19/21 21:14 MPV 10.4 fL (7.4-10.4) 11/19/21 21:14 Neut % (Auto) 56.2 % 11/19/21 21:14 Lymph % (Auto) 30.4 % 11/19/21 21:14 [place] % (Auto) 11.9 % 11/19/21 21:14 Eos % (Auto) 0.3 % 11/19/21 21:14 Baso % (Auto) 0.5 % 11/19/21 21:14 Neut # (Auto) 8.50 10^3/uL (1.8-7.7) H 11/19/21 21:14 Lymph # (Auto) 4.6 10^3/uL (0.8-4.8) 11/19/21 21:14 [place] # (Auto) 1.8 10^3/uL (0.2-0.9) H 11/19/21 21:14 Eos # (Auto) 0.1 10^3/uL (0.0-0.8) 11/19/21 21:14 Baso # (Auto) 0.1 10^3/uL (0.0-0.1) 11/19/21 21:14 Nucleated RBC % (auto) 0.1 % 11/19/21 21:14 Nucleated RBCs # 0.0 /100WBC 11/19/21 21:14 Sodium 138 mmol/L (136-145) 11/19/21 21:14 Potassium 3.8 mmol/L (3.5-5.1) 11/19/21 21:14 Chloride 104 mmol/L (98-107) 11/19/21 21:14 Carbon Dioxide 23 mmol/L (22-29) 11/19/21 21:14 Anion Gap 14.8 (5-19) 11/19/21 21:14 BUN 18 mg/dL (6-20) 11/19/21 21:14 Creatinine 0.8 mg/dL (0.5-0.9) 11/19/21 21:14 GFR Calculation 80.3 mL/min (90-130) L 11/19/21 21:14 Glucose 117 mg/dL (65-115) H 11/19/21 21:14 Calculated Osmolality 289 mOsm/kg (285-295) 11/19/21 21:14 Calcium 9.5 mg/dL (8.5-10.5) 11/19/21 21:14 Total Bilirubin 0.2 mg/dL (0.15-1.2) 11/19/21 21:14 AST 29 U/L (0-32) 11/19/21 21:14 ALT 21 U/L (0-33) 11/19/21 21:14 Alkaline Phosphatase 70 U/L (35-105) 11/19/21 21:14 Total Protein 6.7 g/dL (6.6-8.7) 11/19/21 21:14 Albumin 3.3 g/dL (3.5-5.2) L 11/19/21 21:14 Globulin 3.4 g/dL (1.3-4.6) 11/19/21 21:14 Lipase 29 U/L (13-60) 11/19/21 21:14 HCG, Qual Negative (Negative) 11/19/21 21:14 Salicylates < 0.3 mg/dL (3-10) L 11/19/21 21:14 Urine Opiates Screen Negative ng/mL (Negative) 11/19/21 21:14 Acetaminophen < 5.0 ug/mL (10-30) L 11/19/21 21:14 Ur Barbiturates Screen Negative ng/mL (Negative) 11/19/21 21:14 Ur Phencyclidine Scrn Negative ng/mL (Negative) 11/19/21 21:14 Ur Amphetamines Screen Negative ng/mL (Negative) 11/19/21 21:14 U Benzodiazepines Scrn Negative ng/mL (Negative) 11/19/21 21:14 Urine Cocaine Screen Negative ng/mL (Negative) 11/19/21 21:14 U Marijuana (THC) Screen Negative ng/mL (Negative) 11/19/21 21:14 Imaging Data Other Imaging: Radiologist's impression: [address] [address] XRay Report Signed Patient: Shelby Cherry Unit #: [id number] : 1985 Age/Sex: 36 / F ADM Date: 11/19/21 Loc: ER Room/Bed: Attending Dr: Ordering Provider/Ordering MD: Vivek Loco MD Date of Service: 11/19/21 Procedure(s): XR KUB portable [id number] Accession Number(s): [id number] Report Number: [id number] PROCEDURE INFORMATION: Exam: XR Abdomen Exam date and time: 11/19/2021 9:26 PM Age: 36 years old Clinical indication: Other: Foreign body; Prior surgery; Surgery type: Gb; Patient HX: Intentional ingestion of battery. ; Additional info: Swallowed battery TECHNIQUE: Imaging protocol: Radiologic exam of the abdomen. Views: Frontal supine view of the abdomen. 1 View. COMPARISON: CR XR KUB [id number] 10/19/2021 2:24 PM FINDINGS: Tubes, catheters and devices: 4.2 x 1.1 cm metallic battery shaped foreign body over the fundus/body of the stomach. Gastrointestinal tract: Normal. No bowel dilation. Bones/joints: Unremarkable. XR/XR KUB portable [id number] IMPRESSION: 4.2 x 1.1 cm metallic battery shaped foreign body over the fundus/body of the stomach. ? Dictated By: Robby Hein MD Signed By: Robby Hein MD Signed Date/Time: 11/19/212216 DD/ [address] [address] XRay Report Signed Patient: Shelby Cherry Unit #: [id number] : 1985 Age/Sex: 36 / F ADM Date: 11/19/21 Loc: ER Room/Bed: Attending Dr: Ordering Provider/Ordering MD: Vivek Loco MD Date of Service: 11/19/21 Procedure(s): XR chest 1V portable [id number] Accession Number(s): [id number] Report Number: [id number] PROCEDURE INFORMATION: Exam: XR Chest Exam date and time: 11/19/2021 9:23 PM Age: 36 years old Clinical indication: Other: Foreign body; Patient HX: Intentional ingestion of battery; Additional info: Swallowed battery TECHNIQUE: Imaging protocol: Radiologic exam of the chest. Views: 1 view. COMPARISON: CR XR chest 1V portable [id number] 08/28/2021 6:40 PM FINDINGS: Tubes, catheters and devices: Metallic battery shaped foreign body over the body of the stomach. Lungs: Poor inspiratory effort with some crowding of pulmonary markings and possible accentuation of the apparent heart size. Pleural spaces: Unremarkable. No pleural effusion. No pneumothorax. Heart/Mediastinum: See Lungs finding. Bones/joints: Unremarkable. XR/XR chest 1V portable [id number] IMPRESSION: Metallic battery shaped foreign body over the body of the stomach. ? Dictated By: Robby Hein MD Signed By: Robby Hein MD Signed Date/Time: 11/19/212216 DD/ 2123 Discharge Plan Discharge Patient Disposition: Admitted As Inpatient Clinical Impression: Suicide attempt, Auditory hallucination Condition: Stable Coding Level of Care Code ED Director Of Healthcare Systems for Chg Fwd Exam Comprehensive
[2021-11-19 21:25] LABS: Basophils # 0.1 10^3/uL (0.0-0.1); Basophils % 0.5 %; Eosinophils # 0.1 10^3/uL (0.0-0.8); Eosinophils % 0.3 %; Hematocrit 39.9 % (37.0-47.0); Hemoglobin 13.1 g/dL (11.5-15.3); Lymphocytes # 4.6 10^3/uL (0.8-4.8); Lymphocytes % 30.4 %; Mean Corpuscular HGB Conc 32.8 g/dL (30.0-36.0); Mean Corpuscular Hemoglobin 31.6 pg (28.0-34.0); Mean Corpuscular Volume 96.4 fl (81-99); Mean Platelet Volume 10.4 fL (7.4-10.4); Monocytes # 1.8 10^3/uL (0.2-0.9); Monocytes % 11.9 %; Neutrophils % 56.2 %; Nucleated Red Blood Cells % 0.1 %; Platelet Count 305 10^3/cmm (130-400); Red Blood Count 4.14 10^6/uL (4.1-5.3); Red Cell Distribution Width 15.7 % (12.1-15.1); White Blood Count 15.1 10^3/uL (4.0-10.0)
[2021-11-19 21:35] LABS: Amphetamines Screen Urine Negative (Negative); Barbiturates Screen Urine Negative (Negative); Benzodiazepines Screen Urine Negative (Negative); Cocaine Screen Urine Negative (Negative); HCG Qualitative Urine. Negative (Negative); Opiate Screen Urine Negative (Negative); PCP Screen Urine Negative (Negative); THC Screen Urine Negative (Negative)
[2021-11-19 21:47] LABS: Alanine Aminotransferase 21 U/L (0-33); Albumin Level 3.3 g/dL (3.5-5.2); Alkaline Phosphatase 70 U/L (35-105); Anion Gap 14.8 (5-19); Aspartate Amino Transferase 29 U/L (0-32); Blood Urea Nitrogen 18 mg/dL (6-20); Calcium 9.5 mg/dL (8.5-10.5); Carbon Dioxide 23 mmol/L (22-29); Chloride 104 mmol/L (98-107); Globulin 3.4 g/dL (1.3-4.6); Glomerular Filtration Rate 80.3 mL/min (90-130); Glucose 117 mg/dL (65-115); Lipase 29 U/L (13-60); Osmolality Calculated 289 mOsm/kg (285-295); Potassium 3.8 mmol/L (3.5-5.1); Sodium 138 mmol/L (136-145); Total Bilirubin 0.2 mg/dL (0.15-1.2); Total Protein 6.7 g/dL (6.6-8.7)
[2021-11-19 21:48] LABS: Acetaminophen < 5.0 ug/mL (10-30)
[2021-11-19 22:05] LABS: Salicylate < 0.3 mg/dL (3-10)
[2021-11-20] VITALS: BP 121/82; PULSE 83; RESP 16; O2SAT 98
[2021-11-20 06:00] VITALS: BP 177/68; PULSE 64; RESP 15; O2SAT 97
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
--- NOTE | 2021-11-20 09:24 | PC.NURSE ---
Behavioral Assessment Patient drinking coffee and sitting on edge of bed. Patient denies any visual hallucinations or homicidal ideations. She does endorse having suicidal thoughts and command auditory hallucinations. Patient states she is hearing voices telling her to kill herself by, swallowing things. Patient was redirected verbally, but she says she can't get rid of the thoughts. She also states she is very anxious but refuses medications at this time. Doctor was informed of suicidal ideations and plan. Patient also complained of her stomach hurting and constipation. has ordered xray for patient stat.
--- NOTE | 2021-11-20 09:26 | XRR_ITS ---
PROCEDURE INFORMATION: Exam: XR Abdomen Exam date and time: 11/20/2021 10:32 AM Age: 36 years old Clinical indication: Swallowed foreign object TECHNIQUE: Imaging protocol: Radiologic exam of the abdomen. Views: Frontal supine view of the abdomen. 1 View. COMPARISON: XR ABDOMEN 11/19/2021 9:26 PM FINDINGS: Limitations: The superior upper quadrants are not included on the image. Tubes, catheters and devices: The battery demonstrated in the stomach on the prior comparison study is not visualized on this current single image. However, the stomach is basically not included on this image and therefore I cannot exclude the possibility that the battery is still present. There is a spherical radiopaque density projecting over the ascending colon. This density measures approximately 7 mm in size not accounting for magnification and was present on yesterday's study in the same location. Gastrointestinal tract: No dilated gas-filled loops of bowel. Bones/joints: No acute osseous abnormality. XR/XR KUB portable [id number] IMPRESSION: The battery demonstrated on yesterday's exam is not demonstrated on the current study, but the current exam does not include the stomach. Additional radiographs recommended.
--- NOTE | 2021-11-20 12:22 | CTR_ITS ---
PROCEDURE INFORMATION: Exam: CT Chest Without Contrast; Diagnostic Exam date and time: 11/20/2021 2:21 PM Age: 36 years old Clinical indication: Swallowed a battery TECHNIQUE: Imaging protocol: Diagnostic computed tomography of the chest without contrast. Radiation optimization: All CT scans at this facility use at least one of these dose optimization techniques: automated exposure control; mA and/or kV adjustment per patient size (includes targeted exams where dose is matched to clinical indication); or iterative reconstruction. COMPARISON: XR CHEST 11/19/2021 9:23 PM RADIATION DOSE METRICS: Total DLP (mGy-cm): 903.87 FINDINGS: Lungs: No focal lung consolidation. Pleural spaces: No pleural effusion or pneumothorax. Heart: The heart is not enlarged. No pericardial effusion. No calcified coronary artery atherosclerotic plaque visualized. Mediastinal space: No thoracic esophageal foreign body. No pneumomediastinum or mediastinal fluid collections. Lymph nodes: No pathologically enlarged lymph nodes. Vasculature: No thoracic aortic aneurysm. Bones/joints: No acute osseous abnormality. Soft tissues: No acute soft tissue abnormality. PROCEDURE INFORMATION: Exam: CT Abdomen Without Contrast Exam date and time: 11/20/2021 2:21 PM Age: 36 years old Clinical indication: Swallowed a battery TECHNIQUE: Imaging protocol: Computed tomography of the abdomen without contrast. Radiation optimization: All CT scans at this facility use at least one of these dose optimization techniques: automated exposure control; mA and/or kV adjustment per patient size (includes targeted exams where dose is matched to clinical indication); or iterative reconstruction. COMPARISON: XR ABDOMEN 11/20/2021 10:32 AM RADIATION DOSE METRICS: Total DLP (mGy-cm): 903.87 FINDINGS: Liver: Calcified granuloma in a nonenlarged liver. Gallbladder and bile ducts: Prior cholecystectomy. No biliary ductal dilatation allowing for that. Pancreas: No peripancreatic inflammation. No pancreatic ductal dilation. Spleen: The spleen is homogeneous and is not enlarged. Adrenal glands: No adrenal mass. Kidneys and ureters: No hydronephrosis or nephrolithiasis. Stomach and bowel: The battery is in the gastric antrum. No sign of bowel obstruction or diverticulitis in the upper abdomen. Appendix: The appendix has a normal caliber. There is gas in the lumen. No appendiceal wall thickening or periappendiceal inflammation. Intraperitoneal space: No free intraperitoneal fluid or pneumoperitoneum in the upper abdomen. Vasculature: No abdominal aortic aneurysm. Lymph nodes: Scattered small mesenteric lymph nodes. Bones/joints: Limbus vertebra at the anterior superior corner of the L4 vertebral body. Soft tissues: Tiny umbilical hernia containing fat. CT/CT chest abdomen wo con IMPRESSION: No acute finding. IMPRESSION: The battery is in the gastric antrum.
--- NOTE | 2021-11-20 12:26 | P.CONIM_ITS ---
Providers/Reason For Consult Consulting Physician/Specialty*: Dr. Kenney Justin, DO/General surgery Reason for Consult*: Battery ingestion Attending Physician: Vel Dowling MD Primary Care Provider: JACKIE Beverly History of Present Illness History of Present Illness Shelby Cherry is a 36 year old female, who is a psychiatric patient, that swallowed a cylindrical battery yesterday. She reports epigastric abdominal pain however this appears to be fictitious possibly. She is unable to describe her pain very well. Pain does not seem to radiate. Denies any nausea or vomiting. Moving her bowels. Review of Systems 2 General: Reports: 10 or more systems reviewed and unremarkable except in HPI and below Medications/Allergies Home Medications Medication Instructions Recorded Confirmed Last Taken Type acetaminophen 325 mg capsule 650 mg PO Q6H PRN fever of 100.4 03/16/20 10/19/21 Unknown Rx or greater and/or pain #120 caps haloperidol 5 mg tablet 5 mg PO DAILY PRN severe agitation 10/30/20 10/19/21 Unknown Rx #30 tabs dextromethorphan-guaifenesin 10 See Rx Instructions .Route 05/03/21 10/19/21 Unknown Rx mg-100 mg/5 mL oral liquid (Safe .COMPLEX #500 mL Tussin DM) polyethylene glycol 3350 17 17 g PO DAILY PRN constipation 05/03/21 10/19/21 Unknown Rx gram/dose oral powder (Miralax) #238 grams fluvoxamine 100 mg tablet 100 mg PO BID #60 tabs 07/06/21 10/19/21 Unknown Rx fluvoxamine 50 mg tablet 50 mg PO BID #60 tabs 07/06/21 10/19/21 Unknown Rx ergocalciferol (vitamin D2) 1,250 See Rx Instructions .Route 08/06/21 10/19/21 Unknown Rx mcg (50,000 unit) capsule .COMPLEX #4 caps medroxyprogesterone 150 mg/mL See Rx Instructions .Route 08/18/21 10/19/21 Unknown Rx intramuscular suspension .COMPLEX #1 mL divalproex 500 mg tablet,extended 500 mg PO BID #60 tabs 08/24/21 10/19/21 Unknown Rx release 24 hr (Depakote ER) levothyroxine 125 mcg tablet 125 mcg PO DAILY@08 08/30/21 10/19/21 Unknown History omeprazole 20 mg capsule,delayed 20 mg PO BID@08,20 08/30/21 10/19/21 Unknown History release quetiapine 100 mg tablet 300 mg PO BEDTIME 30 days #90 tabs 09/01/21 10/19/21 Unknown Rx magnesium citrate (Citrate of 90 ml PO DAILY PRN constipation 09/05/21 10/19/21 Unknown Rx Magnesia oral) #296 mL polyethylene glycol 3350 17 gram 17 g PO DAILY PRN constipation 09/05/21 10/19/21 Unknown Rx oral powder packet (Miralax) days #30 ea docusate sodium 100 mg capsule 100 mg PO BID PRN constipation 30 09/13/21 10/19/21 Unknown Rx (Colace) days #60 caps ibuprofen 800 mg tablet 800 mg PO TID PRN ear pain #30 tabs 10/11/21 10/19/21 Unknown Rx clonazepam 0.5 mg tablet 0.5 mg PO TID #90 tabs 10/22/21 Unknown Rx Allergies Allergy/AdvReac Type Severity Reaction Status Date / Time adhesive Allergy ALGY-Rash Verified 11/19/21 20:15 nitrofurantoin Allergy Unknown Verified 11/19/21 20:15 [From Macrobid] Penicillins Allergy Unknown Verified 11/19/21 20:15 BAND-AIDS Allergy Unknown Uncoded 11/19/21 20:15 TIDE DETERGENT Allergy Unknown Uncoded 11/19/21 20:15 PFSH Acute PFSH: Medical History Constipation Depression H/O swallowed foreign body Hypothyroidism Major depressive disorder, recurrent severe without psychotic features Mental disability Post-traumatic stress disorder, chronic Psychiatric care Psychoses Seizure disorder Surgical History (Updated 11/20/21 @ 12:29 by Kenney Justin DO) H/O esophagogastroduodenoscopy (07/05/20) removal of FB History of cholecystectomy Hx of bilateral breast reduction surgery Social History Smoking and tobacco status: former smoker Second hand smoke exposure: No Alcohol intake: never 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 Housing: Assisted Living Facility Marital status: Single Current occupational status: disabled History of recent travel: No Current gender identity: Female Additional social history: Patient states that she grew up in [place]. She is currently living in [place] [facility] and is under guardianship. She enjoys playing games and eating hamburgers. She is despondent that there is no place in [place] where she can get a hamburger and does not know how to make one on her own. Vitals/I&O/Wt Last Vital Signs Temp 96.9 F L 11/19/21 20:07 Pulse 64 11/20/21 06:00 Resp 15 11/20/21 06:00 BP 177/68 11/20/21 06:00 Pulse Ox 97 11/20/21 06:00 O2 Del Method 11/20/21 00:04 Physical Exam Narrative: General: No acute distress, awake alert and oriented x3 Cardiac: Regular rate and rhythm Lungs: Equal chest rise bilaterally, no use of accessory muscles Abdomen: Soft, nondistended, possible fictitious tenderness in the epigastrium, no guarding rebound or masses Extremities warm dry Data : 11/19/21 21:14 11/19/21 21:14 A&P Assessment and plan (1) Swallowed foreign body: Plan X-ray yesterday showed cylindrical battery below the diaphragm. Any object swallowed that goes below the diaphragm should be allowed to pass. No acute surgical intervention Coding Level of Care Code Acute Game Show Host for Lasha Turner Diagnoses Swallowed foreign body T18.9XXA
[2021-11-20] MEDS: haloperidol 5 mg Tablet PO (12:34)
[2021-11-20] MEDS: lactulose oral liq 20 gm/30 mL UDC PO ×3 (13:25→20:48)
[2021-11-20 14:00] VITALS: BP 106/68; PULSE 84; RESP 18; TEMP 36.6; O2SAT 97
[2021-11-20] MEDS: CLONazepam 0.5 mg Tablet PO ×2 (14:46→20:48)
[2021-11-20] MEDS: OLANZapine 5 mg ODT PO (18:23)
[2021-11-20 19:53] VITALS: BP 101/72; PULSE 89; RESP 16; TEMP 36.8; O2SAT 95
[2021-11-20] MEDS: divalproex ER 500 mg Tablet (24H) PO (20:48)
[2021-11-20] MEDS: quetiapine 300 mg Tablet PO (20:48)
[2021-11-20] MEDS: pantoprazole DR 40 mg Tablet PO (20:48)
[2021-11-21] MEDS: lactulose oral liq 20 gm/30 mL UDC PO ×6 (04:55→23:06)
[2021-11-21 06:00] VITALS: BP 104/76; PULSE 110; RESP 16; TEMP 36.8; O2SAT 96
[2021-11-21] MEDS: levothyroxine 125 mcg Tablet PO (08:40)
[2021-11-21] MEDS: OLANZapine 5 mg ODT PO (08:40)
[2021-11-21] MEDS: CLONazepam 0.5 mg Tablet PO ×3 (08:40→19:44)
[2021-11-21] MEDS: divalproex ER 500 mg Tablet (24H) PO ×2 (08:40→19:45)
[2021-11-21] MEDS: pantoprazole DR 40 mg Tablet PO ×2 (08:40→19:45)
--- NOTE | 2021-11-21 12:23 | W.PM.NPUPNS ---
Subjective NPU Subjective: Patient is a 36-year-old white female with mild cognitive impairment admitted with depressed mood and a history of self-injurious behavior who had swallowed a battery with suicidal intent. She continues report having thoughts of hurting herself. She had reported that she had problems with mood swings and states that she still felt angry at her staff. She had reported some chronic feelings of sadness. She reports having severe constipation despite lactulose being given. The patient had not passed her battery yet through her bowel movements as of this time. She reported some feelings of hopelessness. She remained isolative on the milieu with continued reports of hearing voices telling her to hurt herself. Mental Status Exam MSE Comments: She is an obese white female who appeared younger than her stated age somewhat immature. She appeared in less distress today while lying in her bed. Her mood was described as depressed. Her affect appeared mood congruent and restricted in range. She denied any auditory or visual hallucinations. She did not appear to be responding to internal stimuli despite reporting auditory hallucinations. There was no clear evidence of delusional thinking. Her attention appeared at baseline. Her insight was poor. Her impulse control remained feeble. Her judgment is poor. Her intelligence appeared commensurate with mild cognitive impairment. Vitals/I&O/Wt Last Vital Signs Temp 98.3 F 11/21/21 06:00 Pulse 110 H 11/21/21 06:00 Resp 16 11/21/21 06:00 BP 104/76 11/21/21 06:00 Pulse Ox 96 11/21/21 06:00 O2 Del Method 11/21/21 06:00 Weight last 48 hrs Weight 102.625 kg Data NPU : 11/19/21 21:14 11/19/21 21:14 A&P Assessment and plan (1) Impulse control disorder: (2) Obesity: (3) Suicide attempt: Plan 1) TO-15 minute checks 2) restart psychiatric medications including klonopin .5mg tid, seroquel 300mg at night and depakote 500mg bid. 3) engage patient in milieu and group therapy 4) lactulose for treatment of constipation, awaiting battery through patient BM. Involuntary Hold Information 96 Hour Hold: 96 Hour Involuntary Admission: No 96 Hour Hold Ending Date: 08/19/19 96 Hour Hold Ending Time: 07:00 Attestations NPU Medical Necessity Statement*: Inpatient hospitalization is medically necessary and the clinically appropriate intervention at this time. We will monitor medications and make changes as indicated. Patient will be hospitalized on NPU with likely length of stay is two to three days. Coding Level of Care Code Established Pt Acute Window And Siding Craftsman for Brysong Fwd Patient Type Established History Problem Focused Exam Problem Focused Medical Decision Making Straight Forward Diagnoses Impulse control disorder F63.9 Obesity E66.9 Suicide attempt T14.91XA
[2021-11-21 14:00] VITALS: BP 117/78; PULSE 73; RESP 17; TEMP 36.7; O2SAT 96
[2021-11-21] MEDS: quetiapine 300 mg Tablet PO (19:45)
[2021-11-21] MEDS: trazodone 50 mg Tablet PO (19:45)
[2021-11-21 21:31] VITALS: BP 101/64; PULSE 85; RESP 16; TEMP 36.7; O2SAT 98
--- NOTE | 2021-11-21 22:30 | PC.NURSE ---
Addendum entered by Melina Stewart LPN 11/22/21 05:57: pt advised that Dr Dowling had called asking of pt's progress with bowel movement. notified that pt had not yet admitted to having her bowels move. At this time ordered 1 bottle of mag-citrate be given duke as well as a milk/molasses enema if no result from mag-citrate. orders noted. Original Note: pt advised that Dr Dowling had called asking of pt's progress with bowel movements. notified that pt not yet admitted to having her bowels move. at this time ordered mag-citrate one bottle duke as well as a milk/molasses enema if result from mag-citrate. orders entered.
[2021-11-21] MEDS: magnesium hydroxide 30 mL UDC PO (23:00)
--- NOTE | 2021-11-22 01:15 | PC.NURSE ---
pt given milk of mag, molasses, prune juice and milk mixture due to pharmacy delay of providing ordered mag-citrate. pt requested allowing to see if this mixture would produce awaited bowel movement before having to be given ordered enema. pt advised that this nurse will give time as pt requested.
--- NOTE | 2021-11-22 03:00 | PC.NURSE ---
pharmacy notified to inquire about why mag-citrate had not been brought to unit for administration to pt. [employer] notified this nurse the said medication is on recall. in light of the news of said recall, pt will be given ordered enema when pt wakes up.
[2021-11-22] MEDS: lactulose oral liq 20 gm/30 mL UDC PO ×5 (04:49→20:07)
--- NOTE | 2021-11-22 05:00 | PC.NURSE ---
pt at this time has had no results from milk of mag/molasses/prune juice/ warm milk mixture, milk and molasses enema prepared and given by this nurse with the assist of UTILIZATION COORDINATOR, with an approximate 1000ml melted milkshake consistent result. no battery noted at this time.
[2021-11-22 06:00] VITALS: BP 136/74; PULSE 76; RESP 17; TEMP 36.7; O2SAT 95
[2021-11-22] MEDS: CLONazepam 0.5 mg Tablet PO ×3 (08:20→20:07)
[2021-11-22] MEDS: levothyroxine 125 mcg Tablet PO (08:20)
[2021-11-22] MEDS: divalproex ER 500 mg Tablet (24H) PO ×2 (08:20→20:07)
[2021-11-22] MEDS: haloperidol 5 mg Tablet PO (08:20)
[2021-11-22] MEDS: pantoprazole DR 40 mg Tablet PO ×2 (08:20→20:07)
[2021-11-22] MEDS: peg /e-lyte soln 4,000 mL Btl 240 ML PO ×19 (10:05→22:45)
--- NOTE | 2021-11-22 10:44 | XR_ITS ---
WS: [id number] XR acute abdomen series [id number] REASON FOR EXAM: swallowed battery/no bm FINDINGS: No small bowel obstruction or free air. Radiopacity in the right lower quadrant compatible with a battery. Significantly redundant colon. Mildly distended and gas-filled to the distal left colon level. Fecal material is identified within the rectum. XR/XR acute abdomen series [id number] IMPRESSION: No evidence of obstruction. Presumed ingested foreign body in the right lower q uadrant. No findings of small bowel obstruction or perforation.
[2021-11-22 14:00] VITALS: BP 124/88; PULSE 97; RESP 18; TEMP 36.6; O2SAT 99
--- NOTE | 2021-11-22 17:17 | PC.NURSE ---
pt had smal liquid BM, no battery present, pt encouraged to get up and walk halls
--- NOTE | 2021-11-22 17:45 | P.NPUPN_ITS ---
Subjective NPU Subjective: Patient is a 36-year-old white female with mild cognitive impairment admitted with depressed mood and a history of self-injurious behavior who had swallowed a battery with suicidal intent. She continues report having thoughts of hurting herself. Shelby continue to report that she has suicidal thoughts. She reports continuing to feel hopeless. The patient had continued to report abdominal discomfort. She has continued to remain constipated.. Mental Status Exam MSE Comments: She is an obese white female who appeared younger than her stated age somewhat immature. She was in some distress while she was walking around the unit. Her mood was described as depressed. Her affect appeared mood congruent and restricted in range. She denied any auditory or visual hallucinations. She endorsed suicidal ideation. She did not appear to be responding to internal stimuli despite reporting auditory hallucinations. There was no clear evidence of delusional thinking. Her attention appeared at baseline. Her insight was poor. Her impulse control remained feeble. Her judgment is poor. Her intelligence appeared commensurate with mild cognitive impairment. Vitals/I&O/Wt Last Vital Signs Temp 98 F 11/22/21 14:00 Pulse 97 11/22/21 14:00 Resp 18 11/22/21 14:00 BP 124/88 11/22/21 14:00 Pulse Ox 99 11/22/21 14:00 O2 Del Method 11/22/21 14:00 11/22/21 11/22/21 11/22/21 06:59 14:59 22:59 Intake Total 480 / 480 Output Total 1300 / 1300 Balance -820 / -820 Weight last 48 hrs Weight 102.625 kg Data NPU : 11/19/21 21:14 11/19/21 21:14 A&P Assessment and plan (1) Depressive disorder: (2) Impulse control disorder: (3) Obesity: (4) Suicide attempt: (5) Suicidal ideation: Plan 1) TO-15 minute checks 2) restart psychiatric medications including klonopin .5mg tid, seroquel 300mg at night and depakote 500mg bid. 3) engage patient in milieu and group therapy 4) lactulose for treatment of constipation, enema, and golytely awaiting battery through patient BM. Involuntary Hold Information 96 Hour Hold: 96 Hour Involuntary Admission: No 96 Hour Hold Ending Date: 08/19/19 96 Hour Hold Ending Time: 07:00 Attestations NPU Medical Necessity Statement*: Inpatient hospitalization is medically necessary and the clinically appropriate intervention at this time. We will monitor medications and make changes as indicated. Patient will be hospitalized on NPU with likely length of stay is one to two days. Coding Level of Care Code Established Pt Acute Emergency Services Director for [facility] Patient Type Established History Problem Focused Exam Problem Focused Medical Decision Making Straight Forward Diagnoses Depressive disorder F32.A Impulse control disorder F63.9 Obesity E66.9 Suicide attempt T14.91XA Suicidal ideation R45.851
[2021-11-22] MEDS: quetiapine 300 mg Tablet PO (20:07)
[2021-11-22 21:13] VITALS: BP 108/76; PULSE 95; RESP 16; TEMP 36.8; O2SAT 95
[2021-11-23] MEDS: peg /e-lyte soln 4,000 mL Btl 240 ML PO ×12 (02:19→08:20)
[2021-11-23] MEDS: lactulose oral liq 20 gm/30 mL UDC PO ×4 (02:19→13:21)
[2021-11-23 06:00] VITALS: BP 129/86; PULSE 116; RESP 17; TEMP 36.7; O2SAT 92
[2021-11-23] MEDS: CLONazepam 0.5 mg Tablet PO ×3 (08:07→20:05)
[2021-11-23] MEDS: levothyroxine 125 mcg Tablet PO (08:07)
[2021-11-23] MEDS: divalproex ER 500 mg Tablet (24H) PO ×2 (08:07→20:05)
[2021-11-23] MEDS: pantoprazole DR 40 mg Tablet PO ×2 (08:07→20:06)
--- NOTE | 2021-11-23 09:50 | PM.PN ---
Subjective Subjective: Patient denies any abdominal pain nausea or vomiting Vitals/I&O/Wt Last Vital Signs Temp 98.0 F 11/23/21 06:00 Pulse 116 H 11/23/21 06:00 Resp 17 11/23/21 06:00 BP 129/86 11/23/21 06:00 Pulse Ox 92 11/23/21 06:00 O2 Del Method 11/23/21 06:00 11/22/21 11/23/21 11/23/21 22:59 06:59 14:59 Intake Total 480 / 480 Output Total 1000 / 1000 1000 / 1000 Balance -1000 / -1000 -520 / -520 Physical Exam Narrative: General: No acute distress Abdomen: Soft, nontender, nondistended Data : 11/19/21 21:14 11/19/21 21:14 A&P Assessment and plan (1) Swallowed foreign body: Plan Any object swallowed that goes below the diaphragm should be allowed to pass. No acute surgical intervention Surgically stable for discharge on regular diet No follow-up with surgery necessary Attestations Medical Necessity Statement*: Further hospitalization per hospitalist Coding Level of Care Code Acute Foot Worker for [facility] Diagnoses Swallowed foreign body T18.9XXA
--- NOTE | 2021-11-23 11:13 | XRR_ITS ---
PROCEDURE INFORMATION: Exam: XR Complete Acute Abdomen Series Including Chest Exam date and time: 11/23/2021 11:51 AM Age: 36 years old Clinical indication: Constipation; Patient HX: History--swallowed battery, no bowel movement. Follow up; Additional info: Swallowed battery/no bm TECHNIQUE: Imaging protocol: Radiologic exam. Complete acute abdomen series, including 2 or more views of the abdomen and a single view chest. COMPARISON: CR XR acute abdomen series [id number] 11/22/2021 11:04 AM FINDINGS: Tubes, catheters and devices: There is a radiopaque density suspicious for a battery overlying the cecum in the right lower quadrant. Lungs: Normal. No consolidation. Pleural spaces: Normal. No pleural effusions. No pneumothorax. Heart/Mediastinum: Normal. No cardiomegaly. Gastrointestinal tract: There is a calcification is well within the right lower quadrant measuring 7 mm possibly in the appendix. Intraperitoneal space: Normal. No free air. Bones/joints: Normal. No acute fracture. Soft tissues: Normal. XR/XR acute abdomen series [id number] IMPRESSION: Foreign body again noted slightly progressed into the right lower quadrant questionably within the cecum.
[2021-11-23 14:00] VITALS: RESP 18
--- NOTE | 2021-11-23 15:04 | P.NPUPN_ITS ---
Subjective NPU Subjective: Patient is a 36-year-old white female with mild cognitive impairment admitted with depressed mood and a history of self-injurious behavior who had swallowed a battery with suicidal intent. Patient did not report thoughts of hurting herself today but continue to report anger and frustration with having routine lactulose and GoLytely with the presence of a clear liquid diet with continued attempts to try to remove her battery. She reported that she wishes to go home. She denied any feelings of hopelessness she reported no side effects from her medication at this time. She had reported a history of chronic constipation and reports that she has been going to the bathroom only once to twice a week and reports not having any bowel movements until this morning. Repeated chest x-ray had shown that the battery may have been in the cecum. Mental Status Exam MSE Comments: She is an obese white female who appeared younger than her stated age somewhat immature. She was in some distress while she was walking around the unit. Her mood was described as depressed. Her affect appeared mood congruent and restricted in range. She denied any auditory or visual hallucinations. She endorsed no suicidal ideation. She did not appear to be responding to internal stimuli. There was no clear evidence of delusional thinking. Her attention appeared at baseline. Her insight was poor. Her impulse control remained feeble. Her judgment is poor. Her intelligence appeared commensurate with mild cognitive impairment. Vitals/I&O/Wt Last Vital Signs Temp 98.0 F 11/23/21 06:00 Pulse 116 H 11/23/21 06:00 Resp 17 11/23/21 06:00 BP 129/86 11/23/21 06:00 Pulse Ox 92 11/23/21 06:00 O2 Del Method 11/23/21 06:00 11/23/21 11/23/21 11/23/21 06:59 14:59 22:59 Intake Total 480 / 480 Output Total 1000 / 1000 1000 / 1000 Balance -1000 / -1000 -520 / -520 Data NPU : 11/19/21 21:14 11/19/21 21:14 A&P Assessment and plan (1) Impulse control disorder: (2) Depressive disorder: (3) Swallowed foreign body: (4) Obesity: (5) Suicide attempt: (6) Suicidal ideation: Plan ) TO-15 minute checks 2) continue psychiatric medications including klonopin .5mg tid, seroquel 300mg at night and depakote 500mg bid.? 3) engage patient in milieu and group therapy 4) lactulose for treatment of constipation, enema, and golytely, soap waylon enema, remaining on clear liquid diet , awaiting battery through patient BM. There remains less risk of perforation as it appears at the cecum, but examination support considerable blockage in descending colon. Involuntary Hold Information 96 Hour Hold: 96 Hour Involuntary Admission: No 96 Hour Hold Ending Date: 08/19/19 96 Hour Hold Ending Time: 07:00 Attestations NPU Medical Necessity Statement*: Inpatient hospitalization is medically necessary and the clinically appropriate intervention at this time. We will monitor medications and make changes as indicated. Patient will be hospitalized on NPU with likely length of stay is one to two days. Coding Level of Care Code Established Pt Acute Health Services Manager for [facility] Patient Type Established History Problem Focused Exam Problem Focused Medical Decision Making Straight Forward Diagnoses Impulse control disorder F63.9 Depressive disorder F32.A Swallowed foreign body T18.9XXA Obesity E66.9 Suicide attempt T14.91XA Suicidal ideation R45.851
[2021-11-23] MEDS: bisacodyl 10 mg Supp PR (17:14)
[2021-11-23] MEDS: quetiapine 300 mg Tablet PO (20:05)
[2021-11-23 20:47] VITALS: BP 111/78; PULSE 116; RESP 18; TEMP 36.9; O2SAT 95
[2021-11-24 06:00] VITALS: BP 121/79; PULSE 91; RESP 16; TEMP 36.8; O2SAT 95
[2021-11-24] MEDS: divalproex ER 500 mg Tablet (24H) PO (08:19)
[2021-11-24] MEDS: CLONazepam 0.5 mg Tablet PO ×2 (08:19→14:08)
[2021-11-24] MEDS: levothyroxine 125 mcg Tablet PO (08:19)
[2021-11-24] MEDS: bisacodyl 10 mg Supp PR (08:19)
[2021-11-24] MEDS: pantoprazole DR 40 mg Tablet PO (08:19)
--- NOTE | 2021-11-24 09:55 | XRR_ITS ---
PROCEDURE INFORMATION: Exam: XR Abdomen Exam date and time: 11/24/2021 11:01 AM Age: 36 years old Clinical indication: Screening exam; Other: Foreign body; Additional info: Swallowed a battery/no bm TECHNIQUE: Imaging protocol: Radiologic exam of the abdomen. Views: Frontal supine view of the abdomen. 1 View. COMPARISON: CR XR acute abdomen series [id number] 11/23/2021 11:51 AM FINDINGS: Tubes, catheters and devices: A 5.5 x 1.0 cm metal foreign body projects on the right side of the abdomen at the L2 level which is consistent with the history of a swallowed battery. Gastrointestinal tract: Normal. No bowel dilation. Intraperitoneal space: A 7 mm calcification is again seen in the right side of the abdomen. Bones/joints: Unremarkable. XR/XR KUB [id number] IMPRESSION: The battery now projects on the right side of the abdomen at the L2 level. Exact location is uncertain but it could be in the distal small bowel or ascending colon.
[2021-11-24 14:00] VITALS: BP 121/79; PULSE 91; RESP 16; TEMP 36.8; O2SAT 95
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
[2021-11-24 14:52] VITALS: BP 121/79; PULSE 91; RESP 16; TEMP 36.8; O2SAT 95
== END 2021-11-24 16:06 | disposition home or self-care (01) | DRG 394 ==
LOC: ER 20:23 → NP 11-20 07:26
PROVIDERS: Admitting Provider Psychiatry & Neurology Psychiatry; Emergency Provider Emergency Medicine; PCP Nurse Practitioner Family; Visit Provider Psychiatry & Neurology Psychiatry
DX: T18.2XXA Foreign body in stomach, initial encounter (principal); F33.2 Major depressive disorder, recurrent severe without psychotic features; R45.851 Suicidal ideations; X83.8XXA Intentional self-harm by other specified means, initial encounter; F41.9 Anxiety disorder, unspecified; Z88.0 Allergy status to penicillin; E03.9 Hypothyroidism, unspecified; F79 Unspecified intellectual disabilities; F43.12 Post-traumatic stress disorder, chronic; Z87.891 Personal history of nicotine dependence; F63.9 Impulse disorder, unspecified; E66.9 Obesity, unspecified; Z68.38 Body mass index [BMI] 38.0-38.9, adult; G31.84 Mild cognitive impairment of uncertain or unknown etiology; K59.00 Constipation, unspecified
CPT/HCPCS: 71045; 71250; 74018; 74022; 74150; 80053; 80306; 80307; 81025; 83690; 85025; 97150; 97165; 99285

== ENCOUNTER → 2021-12-03 11:02 | Outpatient (BNVA) | payer MEDICAID, SELFPAY | PROVIDERS: PCP Nurse Practitioner Family; Visit Provider Nurse Practitioner Family | DX: Z87.821 Personal history of retained foreign body fully removed (principal) | CPT/HCPCS: 74018 ==

== ENCOUNTER 2022-01-02 16:27 | Emergency (ER) | payer MEDICAID, SELFPAY ==
[2022-01-02 16:31] VITALS: BP 135/80; PULSE 127; RESP 21; TEMP 37.6; O2SAT 97; BMI 39.1
--- NOTE | 2022-01-02 16:36 | XRR_ITS ---
PROCEDURE INFORMATION: Exam: XR Abdomen Exam date and time: 01/02/2022 6:42 PM Age: 36 years old Clinical indication: Other: Swallowed fb; Additional info: Swallow foreign body TECHNIQUE: Imaging protocol: Radiologic exam of the abdomen. Views: Frontal supine view of the abdomen. 1 View. COMPARISON: CR XR KUB [id number] 12/03/2021 11:10 AM FINDINGS: There is foreign body projected over the upper abdomen, either within the stomach or the transverse colon measuring 11.7 mm in diameter by 52 mm in length. This has the shape of a double a or triple a battery. This study is limited by portable technique. XR/XR abdomen 1V* [id number] IMPRESSION: There is a battery shaped foreign body within the stomach.
--- NOTE | 2022-01-02 16:53 | PC.NURSE ---
poison control called per physician request. Instructions received and provider notified.
--- NOTE | 2022-01-02 17:38 | ED_ITS ---
HPI - General Adult General: Chief complaint: Airway/Esophagus Foreign Body Stated complaint: swollowed a battery Time Seen by Provider: 01/02/22 17:34 History of Present Illness: 36-year-old female comes in today for ingestion of a AAA battery. Patient does have a history of similar episodes due to her mental health condition. Patient had told her guardian that she had eaten a battery when the guardian had come home. Guardian reports that she does this often and it is usually a AAA battery. Review of Systems Const: Denies: fever(s) GI: Denies: abdominal pain PFSH ED PFSH: Medical History Constipation Depression H/O swallowed foreign body Hypothyroidism Major depressive disorder, recurrent severe without psychotic features Mental disability Post-traumatic stress disorder, chronic Psychiatric care Psychoses Seizure disorder Surgical History H/O esophagogastroduodenoscopy (07/05/20) removal of FB History of cholecystectomy Hx of bilateral breast reduction surgery Social History Smoking and tobacco status: former smoker Second hand smoke exposure: No Smoking risk assessment/counseling performed?: No Alcohol intake: never Desire information about alcohol rehabilitation?: No Counseling given: No Desire information about substance/drug rehabilitation?: No Counseling given: No Caregiver/support person: Yes Lives independently: No Household members: other Details: LIVES IN A ASSISTED Housing: Assisted Living Facility Marital status: Single Current occupational status: disabled History of recent travel: No Current gender identity: Female Additional social history: Patient states that she grew up in [place]. She is currently living in a snf and is under guardianship. She enjoys playing games and eating hamburgers. She is despondent that there is no place in [place] where she can get a hamburger and does not know how to make one on her own. Physical Exam Const: COMMON NORMALS: alert HENMT: COMMON NORMALS: normocephalic HEAD & SCALP: normocephalic Resp: COMMON NORMALS: normal respiratory effort and clear to auscultation bilaterally AUSCULTATION: clear to auscultation bilaterally Cardio: COMMON NORMALS: regular rate and regular rhythm RATE: regular rate RHYTHM: regular rhythm GI: COMMON NORMALS: Soft to palpation and non-tender PALPATION: Yes Soft to palpation : COMMON NORMALS: Yes no CVA tenderness BLADDER/KIDNEY EXAM: Yes no CVA tenderness Back/Pelvis: COMMON NORMALS: no CVA tenderness Extremity: COMMON NORMALS: full ROM Neuro: SENSORIUM/ORIENTATION: Yes alert Skin: COMMON NORMALS: turgor normal GENERAL SKIN EXAM: turgor normal Course Vital Signs: Vital signs: Vital Signs Temperature 99.6 F 01/02/22 16:31 Pulse Rate 127 H 01/02/22 16:31 Respiratory Rate 21 H 01/02/22 16:31 Blood Pressure 135/80 01/02/22 16:31 Pulse Oximetry 97 01/02/22 16:31 Oxygen Delivery Me thod 01/02/22 16:31 MDM - General Adult Medical Decision Making 36-year-old female comes in today for ingestion of a foreign body. On exam abdo men soft nontender. Lungs are clear to auscultation. Patient is cooperative. Differential diagnosis includes schizophrenia, intellectual disability, swallowed foreign body. X-ray noted a battery shaped object in the small intestine. Reviewed exam with family member and verified through poison control the patient was safe to go home and monitor for passage of battery. Guardian reported understanding and agreed to plan. Discharge Plan Discharge Patient Disposition: Home Clinical Impression: Foreign body ingestion Qualifiers: Encounter type: initial encounter Qualified Code(s): T18.9XXA - Foreign body of alimentary tract, part unspecified, initial encounter Condition: Stable Prescriptions: No Action polyethylene glycol 3350 [Miralax] 17 gram powder in packet 17 g PO DAILY PRN (Reason: constipation) 30 Days Qty: 30 0RF Rx Instructions: use once daily, until you have a regular soft BM daily, then use as needed magnesium citrate [Citrate of Magnesia] Solution 90 ml PO DAILY PRN (Reason: constipation) Qty: 296 0RF dextromethorphan-guaifenesin [Safe Tussin DM] 10-100 mg/5 mL liquid See Rx Instructions .ROUTE .COMPLEX Qty: 500 0RF Dose Instruction: take 10ml BY MOUTH EVERY 6 HOURS NEEDED FOR cough Rx Instructions: take 10ml BY MOUTH EVERY 6 HOURS NEEDED FOR cough Depakote ER 500 mg tablet extended release 24 hr 500 mg PO BID Qty: 60 2RF clonazepam 0.5 mg tablet 0.5 mg PO TID Qty: 90 2RF fluvoxamine 50 mg tablet 50 mg PO BID Qty: 60 2RF Rx Instructions: take with 100mg twice daily fluvoxamine 100 mg tablet 100 mg PO BID Qty: 60 2RF Rx Instructions: take with 50mg twice daily haloperidol 5 mg tablet 5 mg PO DAILY PRN (Reason: severe agitation) Qty: 30 0RF quetiapine 100 mg tablet 300 mg PO BEDTIME 30 Days Qty: 90 2RF ergocalciferol (vitamin D2) 1,250 mcg (50,000 unit) capsule See Rx Instructions .ROUTE .COMPLEX Qty: 4 5RF Dose Instruction: TAKE ONE CAPSULE BY MOUTH ONCE WEEKLY Rx Instructions: TAKE ONE CAPSULE BY MOUTH ONCE WEEKLY medroxyprogesterone 150 mg/mL suspension See Rx Instructions .ROUTE .COMPLEX Qty: 1 3RF Dose Instruction: INJECT 1ML INTRAMUSCULARLY ONCE EVERY THREE MONTHS Rx Instructions: INJECT 1ML INTRAMUSCULARLY ONCE EVERY THREE MONTHS acetaminophen 325 mg capsule 650 mg PO Q6H PRN (Reason: fever of 100.4 or greater and/or pain) Qty: 120 2RF Rx Instructions: Not to exceed 4,000 mg in 24 hr docusate sodium [Colace] 100 mg capsule 100 mg PO BID PRN (Reason: constipation) Qty: 360 3RF ibuprofen 800 mg tablet 800 mg PO TID PRN (Reason: ear pain) Qty: 30 0RF polyethylene glycol 3350 [Miralax] 17 gram/dose powder 17 g PO DAILY PRN (Reason: constipation) Qty: 238 2RF levothyroxine 125 mcg tablet 125 mcg PO DAILY@08 Qty: 90 1RF omeprazole 20 mg capsule,delayed release(DR/EC) 20 mg PO BID@08,20 Discharge Orders: Discharge ED (Routine); Ordered 01/02/22 Ordered By: Jamey Cartwright Referrals: Ольга Quarles FNP [Primary Care Provider] - Discharge Diet: Usual diet Discharge Activity: Increase activity as tolerated Patient Instructions: Foreign Body Ingestion in Children (ED) Activity Restrictions/Additional Instructions: Monitor stools for foreign body. Follow-up with primary care in 3 to 5 days for recheck. Return to ER for persistent vomiting, fever greater than 100.4, severe abdominal pain. Coding Level of Care Code ED Registered Occupational Therapist for Chg Fwd
== END 2022-01-02 17:57 | disposition home or self-care (01) ==
PROVIDERS: Emergency Provider Nurse Practitioner Family; PCP Nurse Practitioner Family
DX: T18.3XXA Foreign body in small intestine, initial encounter (principal); X58.XXXA Exposure to other specified factors, initial encounter
CPT/HCPCS: 74018; 99283

== ENCOUNTER → 2022-01-03 08:12 | Outpatient (BNVA) | payer MEDICAID, SELFPAY | PROVIDERS: PCP Nurse Practitioner Family; Visit Provider Nurse Practitioner Family | DX: Z30.09 Encounter for other general counseling and advice on contraception (principal) | CPT/HCPCS: 86580 ==

== ENCOUNTER → 2022-01-07 11:37 | Outpatient (BNVA) | payer MEDICAID, SELFPAY | PROVIDERS: PCP Nurse Practitioner Family; Visit Provider Nurse Practitioner Family | DX: T18.9XXA Foreign body of alimentary tract, part unspecified, initial encounter (principal) | CPT/HCPCS: 74018 ==

== ENCOUNTER → 2022-01-17 09:01 | Outpatient (BNVA) | payer MEDICAID, SELFPAY | PROVIDERS: PCP Nurse Practitioner Family; Visit Provider Nurse Practitioner Family | DX: T18.9XXA Foreign body of alimentary tract, part unspecified, initial encounter (principal); Z87.821 Personal history of retained foreign body fully removed | CPT/HCPCS: 74018 ==

== ENCOUNTER → 2022-02-02 09:39 | Outpatient (BNVA) | payer MEDICAID, SELFPAY | PROVIDERS: PCP Nurse Practitioner Family; Visit Provider Nurse Practitioner Family | DX: R68.89 Other general symptoms and signs (principal); H66.91 Otitis media, unspecified, right ear | CPT/HCPCS: 87400 ==

== ENCOUNTER 2022-03-10 17:07 | Emergency (ER) | payer MEDICAID, SELFPAY ==
[2022-03-10 17:27] VITALS: PULSE 112; RESP 18; TEMP 36.7; O2SAT 98
--- NOTE | 2022-03-10 17:40 | XRR_ITS ---
PROCEDURE INFORMATION: Exam: XR Abdomen Exam date and time: 03/10/2022 5:50 PM Age: 37 years old Clinical indication: Abdominal pain; Additional info: Ate metal TECHNIQUE: Imaging protocol: Radiologic exam of the abdomen. Views: Frontal supine view of the abdomen. 1 View. COMPARISON: CR XR abdomen 1V* [id number] 01/17/2022 9:05 AM FINDINGS: Gastrointestinal tract: Increased fecal content in the colon. Nonobstructive bowel gas pattern. Intraperitoneal space: No free intraperitoneal air. Organs: No organomegaly. Bones/joints: Unremarkable. XR/XR KUB [id number] IMPRESSION: 1. Nonobstructed bowel gas pattern. 2. Increased fecal content in the colon.
--- NOTE | 2022-03-10 17:41 | XRR_ITS ---
PROCEDURE INFORMATION: Exam: XR Chest Exam date and time: 03/10/2022 5:54 PM Age: 37 years old Clinical indication: Pain; Other: Swallowed metal; Additional info: Fb TECHNIQUE: Imaging protocol: Radiologic exam of the chest. Views: 1 view. COMPARISON: CT chest abdomen wo con 11/20/2021 2:21 PM FINDINGS: Lungs: Lungs are clear bilaterally. Pleural spaces: No pleural effusion. No pneumothorax. Heart/Mediastinum: The cardiac silhouette and mediastinal contours are unremarkable. Bones/joints: Unremarkable for age. XR/XR chest 1V portable [id number] IMPRESSION: Negative chest radiograph.
--- NOTE | 2022-03-10 17:42 | ED.C_ITS ---
HPI - Psych General: Chief Complaint: Psychiatric Symptoms Stated Complaint: swallowed metal Source: patient Mode of arrival: ambulatory Limitations: no limitations History of Present Illness: 37-year-old female is very well-known to the ER she been seen here multiple times after swallowing objects she is here with her caregiver she had swallowed a small piece of metal today she denies any abdominal pain she had no vomiting or diarrhea. Associated symptoms: Deny depression Review of Systems Const: Denies: fever(s), chills, body aches or change in appetite Eyes: Denies: blurry vision or eye discomfort ENMT: Denies: throat pain or dental pain Card: Denies: chest pain Resp: Denies: dyspnea GI: Denies: abdominal pain, nausea, vomiting or diarrhea : Denies: dysuria Musc: Denies: neck pain or back pain Skin/Breast: Denies: rash Neuro: Denies: headache(s) Psych: Denies: depression Hayden/Lymph: Denies: easy bruising All/Imm: Denies: urticaria PFSH ED PFSH: Medical History Constipation Depression Hypothyroidism Major depressive disorder, recurrent severe without psychotic features Mental disability Post-traumatic stress disorder, chronic Psychiatric care Psychoses Seizure disorder Surgical History H/O esophagogastroduodenoscopy (07/05/20) removal of FB History of cholecystectomy Hx of bilateral breast reduction surgery Social History Smoking and tobacco status: former smoker Second hand smoke exposure: No Smoking risk assessment/counseling performed?: No Alcohol intake: never Desire information about alcohol rehabilitation?: No Counseling given: No Desire information about substance/drug rehabilitation?: No Counseling given: No Caregiver/support person: Yes Lives independently: No Household members: other Details: LIVES IN A PENITENTIARY Housing: Assisted Living Facility Marital status: Single Current occupational status: disabled History of recent travel: No Current gender identity: Female Additional social history: Patient states that she grew up in [place]. She is currently living in a [place] [facility] and is under guardianship. She enjoys playing games and eating hamburgers. She is despondent that there is no place in [place] where she can get a hamburger and does not know how to make one on her own. Physical Exam Const: COMMON NORMALS: no acute distress, patient oriented x3 and healthy appearing HENMT: COMMON NORMALS: normocephalic and atraumatic HEAD & SCALP: normocep halic and atraumatic Eye: COMMON NORMALS: Equal, round and reactive pupils present and EOMs intact bilaterally PUPIL: Yes Equal, round and reactive pupils present Neck/C-Spine: COMMON NORMALS: full ROM and supple Chest: COMMONS NORMALS: normal inspection of the chest and normal palpation of entire chest wall Resp: COMMON NORMALS: normal respiratory effort, No retractions, No use of accessory muscles and clear to auscultation bilaterally AUSCULTATION: clear to auscultation bilaterally Cardio: COMMON NORMALS: regular rate, regular rhythm and No murmurs present (Cardio) RATE: regular rate RHYTHM: regular rhythm GI: COMMON NORMALS: Normal to inspection, nondistended, normoactive bowel sounds present, Soft to palpation, non-tender and no masses PALPATION: Yes Soft to palpation Extremity: COMMON NORMALS: normal to inspection and full ROM Neuro: COMMON NORMALS: patient oriented x3, moves all extremities and no focal motor deficits Psych: COMMON NORMALS: mental status grossly normal, Normal thought process present and cooperative THOUGHT PROCESS: Normal thought process present Skin: COMMON NORMALS: no rashes or lesions noted and no wounds GENERAL SKIN EXAM: no rashes or lesions noted Course Vital Signs: Vital signs: Vital Signs Temperature 98.1 F 03/10/22 17:27 Pulse Rate 112 H 03/10/22 17:27 Respiratory Rate 18 03/10/22 17:27 Pulse Oximetry 98 03/10/22 17:27 Oxygen Delivery Me thod 03/10/22 17:27 MDM - Psych Medical Decision Making Patient presents here with swallowed foreign body she is not suicidal she has been seen here multiple times for this it is a metal washer it should pass she should have a repeat x-ray in 5 to 7 days return if worsening. Lab Data Radiology Impressions KUB X-Ray 03/10/22 17:40 IMPRESSION: 1. Nonobstructed bowel gas pattern. 2. Increased fecal content in the colon. Chest X-Ray 03/10/22 17:41 IMPRESSION: Negative chest radiograph. Discharge Plan Discharge Patient Disposition: Home Clinical Impression: Swallowed foreign body Condition: Stable Prescriptions: No Action polyethylene glycol 3350 [Miralax] 17 gram powder in packet 17 g PO DAILY PRN (Reason: constipation) 30 Days Qty: 30 0RF Rx Instructions: use once daily, until you have a regular soft BM daily, then use as needed magnesium citrate [Citrate of Magnesia] Solution 90 ml PO DAILY PRN (Reason: constipation) Qty: 296 0RF cefdinir 300 mg capsule 300 mg PO BID Qty: 20 0RF dextromethorphan-guaifenesin [Safe Tussin DM] 10-100 mg/5 mL liquid See Rx Instructions .ROUTE .COMPLEX Qty: 500 0RF Dose Instruction: take 10ml BY MOUTH EVERY 6 HOURS NEEDED FOR cough Rx Instructions: take 10ml BY MOUTH EVERY 6 HOURS NEEDED FOR cough haloperidol 5 mg tablet 5 mg PO DAILY PRN (Reason: severe agitation) Qty: 30 0RF ergocalciferol (vitamin D2) 1,250 mcg (50,000 unit) capsule See Rx Instructions .ROUTE .COMPLEX Qty: 4 5RF Dose Instruction: TAKE ONE CAPSULE BY MOUTH ONCE WEEKLY Rx Instructions: TAKE ONE CAPSULE BY MOUTH ONCE WEEKLY medroxyprogesterone 150 mg/mL suspension See Rx Instructions .ROUTE .COMPLEX Qty: 1 3RF Dose Instruction: INJECT 1ML INTRAMUSCULARLY ONCE EVERY THREE MONTHS Rx Instructions: INJECT 1ML INTRAMUSCULARLY ONCE EVERY THREE MONTHS acetaminophen 325 mg capsule 650 mg PO Q6H PRN (Reason: fever of 100.4 or greater and/or pain) Qty: 120 2RF Rx Instructions: Not to exceed 4,000 mg in 24 hr docusate sodium [Colace] 100 mg capsule 100 mg PO BID PRN (Reason: constipation) Qty: 360 3RF ibuprofen 800 mg tablet 800 mg PO TID PRN (Reason: ear pain) Qty: 30 0RF polyethylene glycol 3350 [Miralax] 17 gram/dose powder 17 g PO DAILY PRN (Reason: constipation) Qty: 238 2RF levothyroxine 125 mcg tablet 125 mcg PO DAILY@08 Qty: 90 1RF omeprazole 20 mg capsule,delayed release(DR/EC) See Rx Instructions .ROUTE .COMPLEX Qty: 60 5RF Dose Instruction: TAKE ONE CAPSULE BY MOUTH TWICE DAILY (8 IN THE MORNING AND 8 IN THE EVENING ) Rx Instructions: TAKE ONE CAPSULE BY MOUTH TWICE DAILY (8 IN THE MORNING AND 8 IN THE EVENING ) clonazepam 0.5 mg tablet 0.5 mg PO TID Qty: 90 2RF Depakote ER 500 mg tablet extended release 24 hr 500 mg PO BID Qty: 60 2RF fluvoxamine 50 mg tablet 50 mg PO BID Qty: 60 2RF Rx Instructions: take with 100mg twice daily fluvoxamine 100 mg tablet 100 mg PO BID Qty: 60 2RF Rx Instructions: take with 50mg twice daily quetiapine 100 mg tablet 300 mg PO BEDTIME 30 Days Qty: 90 2RF Discharge Orders: Discharge ED (Routine); Ordered 03/10/22 Ordered By: Omar Alicea Referrals: Ольга Quarles FNP [Primary Care Provider] - 1-3 days Discharge Diet: Advance as tolerated Discharge Activity: Resume usual activity Patient Instructions: Foreign Body Ingestion (ED) Activity Restrictions/Additional Instructions: repeat xr in 5-7 days Coding Level of Care Code ED Hand Winder for Lasha Fwjuan diego Exam Comprehensive
== END 2022-03-10 18:38 | disposition home or self-care (01) ==
PROVIDERS: Emergency Provider Emergency Medicine; PCP Nurse Practitioner Family
DX: T18.9XXA Foreign body of alimentary tract, part unspecified, initial encounter (principal); X83.8XXA Intentional self-harm by other specified means, initial encounter; Z87.891 Personal history of nicotine dependence
CPT/HCPCS: 71045; 74018; 99283

== ENCOUNTER → 2022-03-17 13:49 | Outpatient (BNVA) | payer MEDICAID, SELFPAY | PROVIDERS: PCP Nurse Practitioner Family; Visit Provider Nurse Practitioner Family | DX: T18.9XXA Foreign body of alimentary tract, part unspecified, initial encounter (principal); X58.XXXA Exposure to other specified factors, initial encounter | CPT/HCPCS: 74018 ==

== ENCOUNTER → 2022-03-28 10:03 | Outpatient (BNVA) | payer MEDICAID, SELFPAY | PROVIDERS: PCP Nurse Practitioner Family; Visit Provider Nurse Practitioner Family | DX: T18.9XXA Foreign body of alimentary tract, part unspecified, initial encounter (principal); X58.XXXA Exposure to other specified factors, initial encounter | CPT/HCPCS: 74018; 80053; 80061; 80164; 82306; 83036; 84443; 85025 ==

== ENCOUNTER → 2022-04-04 10:08 | Outpatient (BNVA) | payer MEDICAID, SELFPAY | PROVIDERS: PCP Nurse Practitioner Family; Visit Provider Nurse Practitioner Family | DX: T18.9XXA Foreign body of alimentary tract, part unspecified, initial encounter (principal); G40.909 Epilepsy, unspecified, not intractable, without status epilepticus; Z79.899 Other long term (current) drug therapy; E03.9 Hypothyroidism, unspecified; R73.9 Hyperglycemia, unspecified; E66.9 Obesity, unspecified; K21.9 Gastro-esophageal reflux disease without esophagitis; Z30.09 Encounter for other general counseling and advice on contraception; X58.XXXA Exposure to other specified factors, initial encounter | CPT/HCPCS: 74018 ==

== ENCOUNTER 2022-04-14 12:16 | Emergency (ER) | payer MEDICAID, SELFPAY ==
[2022-04-14 12:28] VITALS: BP 135/89; PULSE 97; RESP 16; O2SAT 97
--- NOTE | 2022-04-14 12:38 | XRR_ITS ---
PROCEDURE INFORMATION: Exam: XR Abdomen Exam date and time: 04/14/2022 12:53 PM Age: 37 years old Clinical indication: Screening exam; Other: Possibly swallowed a screw; Additional info: Swallowed fb TECHNIQUE: Imaging protocol: Radiologic exam of the abdomen. Views: Frontal supine view of the abdomen. 1 View. COMPARISON: CR XR KUB [id number] 04/04/2022 10:17 AM FINDINGS: Gastrointestinal tract: Nonobstructive bowel gas pattern. Intraperitoneal space: No gross free air. Bones/joints: No gross acute fracture. Soft tissues: No radiopaque foreign body is identified. XR/XR KUB portable [id number] IMPRESSION: No radiopaque foreign body is identified.
--- NOTE | 2022-04-14 12:53 | ED_ITS ---
HPI - General Adult General: Chief complaint: General Medical Stated complaint: swallowed a screw Time Seen by Provider: 04/14/22 12:38 Source: patient Mode of arrival: ambulatory History of Present Illness: 7-year-old female who frequents emergency room after foreign body ingestion. She has intellectual disability frequently gets upset randomly swallows foreign bodies unfortunately several times in the past she swallowed batteries. Today she swallowed a single screw. She denies any intent to harm herself she was just angry. Seen multiple times by psychiatry, we no longer pursue admission when patient swallows foreign bodies. No abdominal pain or discomfort at this time. Onset (ago): minute(s) Associated symptoms: Deny chest pain, dyspnea, malaise, nausea, rash or vomiting Review of Systems Const: Denies: fever(s), chills, body aches, change in appetite, fatigue or malaise ENMT: Denies: throat pain, ear or mastoid pain, nasal discharge or nasal congestion Card: Denies: chest pain, edema, dyspnea on exertion or orthopnea Resp: Denies: dyspnea, productive cough or non-productive cough GI: Denies: abdominal pain, nausea, vomiting, hematemesis, coffee ground emesis, diarrhea, constipation, bloating, hematochezia or melena : Denies: flank pain, difficulty voiding, dysuria, urinary frequency or urinary urgency Skin/Breast: Denies: rash or pruritus PFSH ED PFSH: Medical History Constipation Depression Hypothyroidism Major depressive disorder, recurrent severe without psychotic features Mental disability Post-traumatic stress disorder, chronic Psychiatric care Psychoses Seizure disorder Vitamin D deficiency Surgical History H/O esophagogastroduodenoscopy (07/05/20) removal of FB History of cholecystectomy Hx of bilateral breast reduction surgery Social History Smoking and tobacco status: former smoker Second hand smoke exposure: No Smoking risk assessment/counseling performed?: No Alcohol intake: never Desire information about alcohol rehabilitation?: No Counseling given: No Desire information about substance/drug rehabilitation?: No Counseling given: No Caregiver/support person: Yes Lives independently: No Household members: other Details: LIVES IN A ASSISTED Housing: Assisted Living Facility Marital status: Single Current occupational status: disabled Current gender identity: Female Additional social history: Patient states that she grew up in [place]. She is currently living in a detention and is under guardianship. She enjoys playing games and eating hamburgers. She is despondent that there is no place in [place] where she can get a hamburger and does not know how to make one on her own. Physical Exam Const: COMMON NORMALS: no acute distress GENERAL APPEARANCE: cooperative and comfortable ORIENTATION/CONSCIOUSNESS: Yes awake, Yes oriented to person, Yes oriented to place and Yes oriented to time HENMT: COMMON NORMALS: normocephalic, atraumatic and hearing grossly normal bilaterally HEAD & SCALP: normocephalic and atraumatic Resp: COMMON NORMALS: normal respiratory effort, No retractions, No use of accessory muscles and clear to auscultation bilaterally AUSCULTATION: clear to auscultation bilaterally Cardio: COMMON NORMALS: regular rate, regular rhythm and No murmurs present (Cardio) RATE: regular rate RHYTHM: regular rhythm GI: COMMON NORMALS: Soft to palpation and No hepatosplenomegaly present AUSCULTATION: Yes normoactive bowel sounds PALPATION: Yes Soft to palpation, No Tenderness to palpation present (GI), No Guarding due to palpation present (GI) and Yes No hepatosplenomegaly present Extremity: COMMON NORMALS: normal to inspection, capillary refill normal, no clubbing, cyanosis or edema, no calf tenderness and no pedal edema Neuro: SENSORIUM/ORIENTATION: Yes oriented to person, Yes oriented to place and Yes oriented to time Skin: COMMON NORMALS: no rashes or lesions noted GENERAL SKIN EXAM: no rashes or lesions noted Course Vital Signs: Vital signs: Vital Signs Pulse Rate 87 04/14/22 14:46 Respiratory Rate 16 04/14/22 12:28 Blood Pressure 108/77 04/14/22 14:46 Pulse Oximetry 98 04/14/22 14:46 Oxygen Delivery Me thod 04/14/22 12:28 [facility] - General Adult Medical Decision Making No evidence of ingested metallic foreign body on either chest or KUB films. Recommend discharge after discussion with Dr. Kendall we both concur. She has a long history has not anything to advance lethality there is no benefit for admission. See previous notes from Dr. Kendall. Lab Data Radiology Impressions KUB X-Ray 04/14/22 12:38 IMPRESSION: No radiopaque foreign body is identified. Chest X-Ray 04/14/22 13:20 IMPRESSION: Unremarkable chest radiograph. Discharge Plan Discharge Patient Disposition: Home Clinical Impression: Borderline personality disorder, Impulse control disorder Condition: Stable Prescriptions: No Action latanoprost 0.005 % drops 1 drp ophthalmic (eye) QPM haloperidol 5 mg tablet 5 mg PO DAILY PRN (Reason: severe agitation) Qty: 30 0RF acetaminophen 325 mg capsule 650 mg PO Q6H PRN (Reason: fever of 100.4 or greater and/or pain) Qty: 120 2RF Rx Instructions: Not to exceed 4,000 mg in 24 hr ibuprofen 800 mg tablet 800 mg PO TID PRN (Reason: ear pain) Qty: 30 0RF polyethylene glycol 3350 [Miralax] 17 gram/dose powder 17 g PO DAILY PRN (Reason: constipation) Qty: 238 2RF levothyroxine 125 mcg tablet 125 mcg PO DAILY@08 Qty: 90 1RF clonazepam 0.5 mg tablet 0.5 mg PO TID Qty: 90 2RF Antacid Anti-Gas (ca carb-sim) 1,000-60 mg tablet,chewable 1 tab PO TID PRN (Reason: Abdominal Pain) Safe Tussin DM 10-100 mg/5 mL liquid 10 ml PO Q6H PRN (Reason: Cough) fluvoxamine 100 mg tablet 100 mg PO BID@08,20 Rx Instructions: take with 50mg twice daily Depakote ER 500 mg tablet extended release 24 hr 500 mg PO BID@08,20 Colace 100 mg capsule 100 mg PO BID@08,20 omeprazole 20 mg capsule,delayed release(DR/EC) 20 mg PO BID@08,20 fluvoxamine 50 mg tablet 50 mg PO BID@08,20 Rx Instructions: take with 100mg twice daily ergocalciferol (vitamin D2) 1,250 mcg (50,000 unit) capsule 50,000 unit PO Q7D Rx Instructions: on monday medroxyprogesterone 150 mg/mL suspension 150 mg IM Q90D quetiapine 100 mg tablet 300 mg PO BEDTIME@20 Discharge Orders: Discharge ED (Routine); Ordered 04/14/22 Ordered By: Lee Hough Referrals: Ольга Quarles FNP [Primary Care Provider] - Discharge Diet: Usual diet Discharge Activity: Resume usual activity Patient Instructions: Opioid Safety, Pain Management Activity Restrictions/Additional Instructions: Only swallow food and drink do not swallow metallic objects or other things that are not actually food. Coding Level of Care Code ED Quality Control Analyst for Lasha Turner
--- NOTE | 2022-04-14 13:09 | PC.NURSE ---
pt ambulatory to rest room with caregiver. caregiver remaining with pt
--- NOTE | 2022-04-14 13:19 | PC.NURSE ---
Addendum entered by Toma Pitts RN 04/14/22 13:20: Dr. Hough notified that pt stated she doesnt want to live anymore. Original Note: pt present to ER with caregiver. pt reports she swallowed a screw because she doesn't want to live anymore. Caregiver reports this allegedly occurred around 1045 and was unwitnessed. pt speech clear. speaking in complete sentences without difficulty. no abnormal airway noises. lung sounds clear bilat. oral mucosa pink and moist. pt denies HI. reports abdominal pain that just now began.
--- NOTE | 2022-04-14 13:20 | XR_ITS ---
WS: [id number] Exam: XR chest 1V portable [id number] Date/Time of Exam: 04/14/2022 1:21 PM Reason For Exam: swallowed FB Comparison 03/10/2022. Findings: The lungs are clear and fully expanded. Costophrenic angles are sharp. No infiltrates. Bronchovascula r relief appears normal. Cardiac silhouette is unremarkable. Bony elements are intact. XR/XR chest 1V portable [id number] IMPRESSION: Unremarkable chest radiograph.
[2022-04-14 14:46] VITALS: BP 108/77; PULSE 87; O2SAT 98
== END 2022-04-14 14:47 | disposition home or self-care (01) ==
PROVIDERS: Emergency Provider Family Medicine; PCP Nurse Practitioner Family
DX: F60.3 Borderline personality disorder (principal); F63.9 Impulse disorder, unspecified; Z87.891 Personal history of nicotine dependence
CPT/HCPCS: 71045; 74018; 99283

== ENCOUNTER 2022-05-20 20:15 | Emergency (ER) | payer MEDICAID, SELFPAY ==
[2022-05-20 20:40] VITALS: BP 143/89; PULSE 120; RESP 18; TEMP 36.6; O2SAT 95; BMI 37.2
--- NOTE | 2022-05-20 20:40 | XRR_ITS ---
PROCEDURE INFORMATION: Exam: XR Abdomen Exam date and time: 05/20/2022 8:46 PM Age: 37 years old Clinical indication: Abdominal pain; Additional info: Reports swallowed screw TECHNIQUE: Imaging protocol: Radiologic exam of the abdomen. Views: Frontal supine view of the abdomen. 1 View. COMPARISON: CR XR KUB portable [id number] 04/14/2022 12:53 PM FINDINGS: Limitations: Part of the left upper quadrant and upper abdomen including part of the stomach and gastric fundus not included on this exam. Gastrointestinal tract: Normal. No bowel dilation. Bones/joints: Unremarkable. XR/XR abdomen 1V* [id number] IMPRESSION: 1. Limited examination as described above. 2. No opaque or metallic foreign body is identified.
--- NOTE | 2022-05-20 21:35 | PC.NURSE ---
Physician states that the xray on patient reveals no screw in GI tract. Physician to follow up with Dr. whitaker for further information.
--- NOTE | 2022-05-20 22:14 | XRR_ITS ---
PROCEDURE INFORMATION: Exam: XR Abdomen Exam date and time: 05/20/2022 10:19 PM Age: 37 years old Clinical indication: Abdominal pain; Additional info: Foreign body TECHNIQUE: Imaging protocol: Radiologic exam of the abdomen. Views: Frontal supine view of the abdomen. 1 View. COMPARISON: CR (ABDOMEN, ) 05/20/2022 8:46 PM FINDINGS: Gastrointestinal tract: Bowel gas pattern is grossly unremarkable. Bones/joints: See Soft tissues finding. Soft tissues: Bones and soft tissues are within normal limits. No opaque foreign body is identified. XR/XR KUB portable [id number] IMPRESSION: No foreign body is identified.
--- NOTE | 2022-05-20 22:19 | W.ED.PSYCHS ---
HPI - Psych General: Chief Complaint: Psychiatric Symptoms Stated Complaint: swallowed a screw Time Seen by Provider: 05/20/22 20:53 Source: patient History of Present Illness: 37-year-old female with intellectual disability. She has a history of frequent swallowed foreign bodies, particularly when she is agitated. She reports swallowing a small screw that she unscrewed from her bed this evening. She also abraded her wrists. She says that she did this because I want to . This is a frequent complaint of hers. She denies vomiting. No blood in the stool. She says that her belly hurts mildly. senior living staff reports that she was agitated earlier in the evening. She does not feel agitated currently. MD complaint: suicidal ideation, feels depressed and other Onset (ago): hour(s) Duration: constant History of same: Yes Relieving factors: none Exacerbating factors: other Associated symptoms: Reports depression Review of Systems ENMT: Denies: throat pain Card: Denies: chest pain Resp: Denies: dyspnea or productive cough GI: Reports: abdominal pain; Denies: nausea or vomiting Psych: Reports: depression PFSH ED PFSH: Medical History Constipation Depression Hypothyroidism Major depressive disorder, recurrent severe without psychotic features Mental disability Post-traumatic stress disorder, chronic Psychiatric care Psychoses Seizure disorder Vitamin D deficiency Surgical History H/O esophagogastroduodenoscopy (07/05/20) removal of FB History of cholecystectomy Hx of bilateral breast reduction surgery Social History Smoking and tobacco status: former smoker Second hand smoke exposure: No Smoking risk assessment/counseling performed?: No Alcohol intake: never Desire information about alcohol rehabilitation?: No Counseling given: No Desire information about substance/drug rehabilitation?: No Counseling given: No Caregiver/support person: Yes Lives independently: No Household members: other Details: LIVES IN A ASSISTED Housing: Assisted Living Facility Marital status: Single Current occupational status: disabled Current gender identity: Female Additional social history: Patient states that she grew up in [place]. She is currently living in a fci and is under guardianship. She enjoys playing games and eating hamburgers. She is despondent that there is no place in [place] where she can get a hamburger and does not know how to make one on her own. Physical Exam Const: COMMON NORMALS: no acute distress GENERAL APPEARANCE: cooperative; not ill appearing and not frail appearing HENMT: COMMON NORMALS: normocephalic, atraumatic and Normal external nose present HEAD & SCALP: normocephalic and atraumatic FACE & SINUS: normal facial exam and face symmetric NOSE: Normal external nose present Eye: COMMON NORMALS: Equal, round and reactive pupils present and EOMs intact bilaterally PUPIL: Yes Equal, round and reactive pupils present Neck/C-Spine: GENERAL: Yes trachea midline Chest: CHEST: Yes Symmetrical chest wall rise Resp: COMMON NORMALS: normal respiratory effort, No retractions, No use of accessory muscles and clear to auscultation bilaterally AUSCULTATION: clear to auscultation bilaterally Cardio: COMMON NORMALS: regular rate and regular rhythm RATE: regular rate RHYTHM: regular rhythm GI: COMMON NORMALS: Normal to inspection, nondistended, normoactive bowel sounds present Extremity: COMMON NORMALS: no pedal edema Neuro: CODIE COMA SCALE: document GCS findings [place] coma scale eye opening: Spontaneous [place] coma scale verbal response: Orientated [place] coma scale motor response: Obey commands Codie coma scale total score: 15 SENSORY EXAM: Yes extremities (intact) Psych: COMMON NORMALS: speech normal SPEECH: Yes normal speech Skin: COMMON NORMALS: no rashes or lesions noted GENERAL SKIN EXAM: no rashes or lesions noted Course Vital Signs: Vital signs: Vital Signs Temperature 97.9 F 05/20/22 20:40 Pulse Rate 120 H 05/20/22 20:40 Respiratory Rate 18 05/20/22 20:40 Blood Pressure 143/89 05/20/22 20:40 Pulse Oximetry 95 05/20/22 20:40 Oxygen Delivery Me thod 05/20/22 20:40 MDM - Psych Medical Decision Making KUB reveals no foreign body. This patient has a long history of swallowing foreign bodies is attention seeking behavior. She has been seen by psychiatry many times for this. There has been no change in her lethality over the course of years with these episodes. I spoke with psychiatry. She is deemed stable for discharge back to her fci environment. Lab Data Radiology Impressions Abdomen X-Ray 05/20/22 20:40 IMPRESSION: 1. Limited examination as described above. 2. No opaque or metallic foreign body is identified. KUB X-Ray 05/20/22 22:14 IMPRESSION: No foreign body is identified. Discharge Plan Discharge Patient Disposition: Home Clinical Impression: Depressive disorder, Borderline personality disorder Condition: Stable Prescriptions: No Action latanoprost 0.005 % drops 1 drp ophthalmic (eye) QPM haloperidol 5 mg tablet 5 mg PO DAILY PRN (Reason: severe agitation) Qty: 30 0RF acetaminophen 325 mg capsule 650 mg PO Q6H PRN (Reason: fever of 100.4 or greater and/or pain) Qty: 120 2RF Rx Instructions: Not to exceed 4,000 mg in 24 hr ibuprofen 800 mg tablet 800 mg PO TID PRN (Reason: ear pain) Qty: 30 0RF polyethylene glycol 3350 [Miralax] 17 gram/dose powder 17 g PO DAILY PRN (Reason: constipation) Qty: 238 2RF levothyroxine 125 mcg tablet 125 mcg PO DAILY@08 Qty: 90 1RF Depakote ER 500 mg tablet extended release 24 hr 500 mg PO BID@08,20 Qty: 60 2RF clonazepam 0.5 mg tablet 0.5 mg PO TID Qty: 90 2RF fluvoxamine 100 mg tablet 100 mg PO BID@08,20 Qty: 60 2RF Rx Instructions: take with 50mg twice daily fluvoxamine 50 mg tablet 50 mg PO BID@08,20 Qty: 60 2RF Rx Instructions: take with 100mg twice daily quetiapine 100 mg tablet 300 mg PO BEDTIME@20 Qty: 90 2RF docusate sodium 100 mg capsule See Rx Instructions .ROUTE .COMPLEX Qty: 360 3RF Dose Instruction: TAKE ONE CAPSULE BY MOUTH TWICE DAILY NEEDED FOR CONSTIPATION Rx Instructions: TAKE ONE CAPSULE BY MOUTH TWICE DAILY NEEDED FOR CONSTIPATION Antacid Anti-Gas (ca carb-sim) 1,000-60 mg tablet,chewable See Rx Instructions .ROUTE .COMPLEX Qty: 21 2RF Dose Instruction: CHEW ONE TABLET BY MOUTH THREE TIMES DAILY NEEDED FOR ABDOMINAL pain Rx Instructions: CHEW ONE TABLET BY MOUTH THREE TIMES DAILY NEEDED FOR ABDOMINAL pain Safe Tussin DM 10-100 mg/5 mL liquid 10 ml PO Q6H PRN (Reason: Cough) omeprazole 20 mg capsule,delayed release(DR/EC) 20 mg PO BID@08,20 ergocalciferol (vitamin D2) 1,250 mcg (50,000 unit) capsule 50,000 unit PO Q7D Rx Instructions: on monday medroxyprogesterone 150 mg/mL suspension 150 mg IM Q90D Discharge Orders: Discharge ED (Routine); Ordered 05/20/22 Ordered By: Chele Burns Referrals: Ольга Quarles FNP [Primary Care Provider] - 4-7 days Patient Instructions: Depression (ED), Borderline Personality Disorder (DC), Suicide Prevention (ED) Coding Level of Care Code ED Form Building Supervisor for Lasha Turner
--- NOTE | 2022-05-20 22:52 | PC.NURSE ---
Pt. states that she is not going back! . I have explained to patient that she is being discharged and if she is having problem with staff at her skilled nursing , then she needs to talk it out at home. I have explained that she can not stay in the ER because she does not want to go home.
== END 2022-05-20 22:55 | disposition home or self-care (01) ==
PROVIDERS: Emergency Provider Emergency Medicine; PCP Nurse Practitioner Family
DX: F60.3 Borderline personality disorder (principal); F32.A Depression, unspecified; Z87.891 Personal history of nicotine dependence
CPT/HCPCS: 74018; 99283

== ENCOUNTER 2022-06-03 16:38 | Emergency (ER) | payer MEDICAID, SELFPAY ==
[2022-06-03 16:44] VITALS: BP 116/81; PULSE 95; RESP 18; TEMP 37.1; O2SAT 100; BMI 37.8
--- NOTE | 2022-06-03 17:20 | XRR_ITS ---
PROCEDURE INFORMATION: Exam: XR Right Ankle Exam date and time: 06/03/2022 5:49 PM Age: 37 years old Clinical indication: Injury or trauma; Fall; Additional info: Fall injury to ankle TECHNIQUE: Imaging protocol: Radiologic exam of the right ankle. Views: 3 or more views. COMPARISON: No relevant prior studies available. FINDINGS: Bones/joints: Tiny calcification medial to the tip of the medial malleolus suggesting small avulsion injury which could be acute or chronic nature. Suspect subtle nondisplaced fracture lateral malleolus. Ankle joint appears maintained. Moderate plantar calcaneal spur. Soft tissues: Soft tissue swelling is seen laterally. XR/XR ankle RT min 3V* [id number] IMPRESSION: 1. Soft tissue swelling laterally and suspected subtle nondisplaced fracture of the lateral malleolus. 2. Tiny avulsion injury of the tip of the medial malleolus, could be acute or chronic.
--- NOTE | 2022-06-03 17:20 | CTR_ITS ---
PROCEDURE INFORMATION: Exam: CT Head Without Contrast Exam date and time: 06/03/2022 5:27 PM Age: 37 years old Clinical indication: Injury or trauma; Fall; Blunt trauma (contusions or hematomas); Patient HX: PT denies loc; Additional info: Fall and hit back of head on concrete TECHNIQUE: Imaging protocol: Computed tomography of the head without contrast. Radiation optimization: All CT scans at this facility use at least one of these dose optimization techniques: automated exposure control; mA and/or kV adjustment per patient size (includes targeted exams where dose is matched to clinical indication); or iterative reconstruction. REPORTING DATA: Count of CT and Cardiac NM exams in prior 12 months: This patient has received [address] and 0 known cardiac nuclear medicine studies in the 12 months prior to the current study. COMPARISON: CR XR soft tissue neck [id number] 03/15/2021 4:49 PM RADIATION DOSE METRICS: Total DLP (mGy-cm): 1056.48 FINDINGS: Brain: Normal. No hemorrhage. Unremarkable white matter. No mass effect. Cerebral ventricles: No ventriculomegaly. Paranasal sinuses: Visualized sinuses are unremarkable. No fluid levels. Mastoid air cells: Visualized mastoid air cells are well aerated. Bones/joints: Unremarkable. No acute fracture. Soft tissues: Unremarkable. CT/CT head wo con* [id number] IMPRESSION: No acute intracranial abnormality.
--- NOTE | 2022-06-03 17:22 | W.ED.FALL ---
HPI - Fall General: Chief Complaint: Fall Stated Complaint: fall/ hit head Time Seen by Provider: 06/03/22 17:02 History of Present Illness: Patient is a 37-year-old female comes to the ED with head injury after fall. Past medical history of mental disability, major depressive disorder, PTSD. Patient lives in a fpc and has caregivers present. Patient was going to get into her vehicle and fell backwards and hit back of her head on concrete. Denies any loss of consciousness, nausea vomiting or change in behavior. After fall she felt very dizzy and said she was going to pass out but she did not act. She is also complaining of having a bad headache. Denies any vision changes, numbness tingling or weakness to 1 side of her face or body. She also does complain of having pain in her right ankle after fall. Pain is located on the lateral aspect of the ankle. Any pressure or weightbearing causes worsening pain. Associated symptoms-after fall: Reports headache(s); Denies abdominal pain, chest pain, hematuria or neck pain Review of Systems Const: Denies: fever(s), chills or fatigue Eyes: Denies: change in vision or eye discomfort ENMT: Denies: throat pain, odynophagia, nasal discharge or nasal congestion Card: Denies: chest pain, palpitations, edema, swelling of feet/ankles, dyspnea on exertion or orthopnea Resp: Denies: dyspnea, productive cough or non-productive cough GI: Denies: abdominal pain, nausea, vomiting, diarrhea, constipation or hematochezia : Denies: flank pain, dysuria or hematuria Musc: Reports: extremity pain (Right ankle); Denies: neck pain, back pain or extremity swelling Skin/Breast: Denies: rash or new lesions Neuro: Reports: headache(s); Denies: numbness in extremities or weakness in extremities PFS ED PFSH: Medical History Constipation Depression Hypothyroidism Major depressive disorder, recurrent severe without psychotic features Mental disability Post-traumatic stress disorder, chronic Psychiatric care Psychoses Seizure disorder Vitamin D deficiency Surgical History H/O esophagogastroduodenoscopy (07/05/20) removal of FB History of cholecystectomy Hx of bilateral breast reduction surgery Social History Smoking and tobacco status: former smoker Second hand smoke exposure: No Smoking risk assessment/counseling performed?: No Alcohol intake: never Desire information about alcohol rehabilitation?: No Counseling given: No Desire information about substance/drug rehabilitation?: No Counseling given: No Caregiver/support person: Yes Lives independently: No Household members: other Details: LIVES IN A LONG-TERM Housing: Assisted Living Facility Marital status: Single Current occupational status: disabled Current gender identity: Female Additional social history: Patient states that she grew up in [place]. She is currently living in a fpc and is under guardianship. She enjoys playing games and eating hamburgers. She is despondent that there is no place in [place] where she can get a hamburger and does not know how to make one on her own. Physical Exam Const: COMMON NORMALS: patient oriented x3 HENMT: COMMON NORMALS: normocephalic HEAD & SCALP: normocephalic and abrasion right occipital Head abrasion size: 1 cm MOUTH: Normal oral and palatal mucosa present THROAT: posterior oropharynx normal and uvula midline OTHER: No active bleeding. Neck/C-Spine: COMMON NORMALS: supple GENERAL: Yes normal visual inspection Resp: COMMON NORMALS: normal respiratory effort, No retractions, No use of accessory muscles and clear to auscultation bilaterally AUSCULTATION: clear to auscultation bilaterally Cardio: COMMON NORMALS: regular rate, regular rhythm, S1 normal heart sound present, S2 normal heart sound present, No gallops present (Cardio), No clicks present (Cardio), No murmurs present (Cardio) and Peripheral pulses 2+ throughout RATE: regular rate RHYTHM: regular rhythm HEART SOUNDS: S1 normal heart sound present and S2 normal heart sound present PERIPHERAL PULSES: Peripheral pulses 2+ throughout GI: COMMON NORMALS: Normal to inspection, nondistended, normoactive bowel sounds present, Soft to palpation, non-tender and no masses PALPATION: Yes Soft to palpation : COMMON NORMALS: Yes no CVA tenderness BLADDER/KIDNEY EXAM: Yes no CVA tenderness Back/Pelvis: COMMON NORMALS: no CVA tenderness Extremity: NARRATIVE EXTREMITY EXAM: Right ankle?lateral malleolus tenderness. Limited range of motion in ankle due to pain. Swelling noted to lateral malleolus. Neuro: COMMON NORMALS: patient oriented x3 GAIT: Yes Normal gait present Skin: GENERAL SKIN EXAM: dry skin Course Vital Signs: Vital signs: Vital Signs Temperature 98.7 F 06/03/22 16:44 Pulse Rate 92 06/03/22 19:01 Respiratory Rate 18 06/03/22 19:01 Blood Pressure 116/81 06/03/22 16:44 Pulse Oximetry 100 06/03/22 19:01 Oxygen Delivery Me thod Room Air 06/03/22 16:44 MDM - Fall Medical Decision Making Patient is a 37-year-old female comes to the ED with head injury after fall. Past medical history of mental disability, major depressive disorder, PTSD. Patient lives in a fpc and has caregivers present. Patient was going to get into her vehicle and fell backwards and hit back of her head on concrete. Denies any loss of consciousness, nausea vomiting or change in behavior. After fall she felt very dizzy and said she was going to pass out but she did not act. She is also complaining of having a bad headache. Denies any vision changes, numbness tingling or weakness to 1 side of her face or body. She also does complain of having pain in her right ankle after fall. Pain is located on the lateral aspect of the ankle. Any pressure or weightbearing causes worsening pain. Vitals are stable. Right occipital scalp has small abrasion and no active bleeding.Right ankle?lateral malleolus tenderness. Limited range of motion in ankle due to pain. Swelling noted to lateral malleolus. Patient given tetanus shot. CT of head shows no acute findings. X-ray of right ankle shows subtle nondisplaced fracture of the lateral malleolus with tiny avulsion injury of the tip of medial malleolus. Patient was put in a posterior leg with stirrup splint and discharged home with crutches. I placed order with case management for patient referred to Ortho for follow-up. Patient diagnosed with right ankle fracture and scalp abrasion. Return to ED precautions given. Patient discharged home with pain medicine. Patient understood and agreed with plan. Lab Data Radiology Impressions Ankle X-Ray 06/03/22 17:20 IMPRESSION: 1. Soft tissue swelling laterally and suspected subtle nondisplaced fracture of the lateral malleolus. 2. Tiny avulsion injury of the tip of the medial malleolus, could be acute or chronic. Head CT 06/03/22 17:20 IMPRESSION: No acute intracranial abnormality. Discharge Plan Discharge Patient Disposition: Home Clinical Impression: Ankle fracture, right Qualifiers: Encounter type: initial encounter Fracture type: closed Qualified Code(s): S82.891A - Other fracture of right lower leg, initial encounter for closed fracture Abrasion of scalp Qualifiers: Encounter type: initial encounter Qualified Code(s): S00.01XA - Abrasion of scalp, initial encounter Condition: Stable Prescriptions: No Action latanoprost 0.005 % drops 1 drp ophthalmic (eye) QPM haloperidol 5 mg tablet 5 mg PO DAILY PRN (Reason: severe agitation) Qty: 30 0RF acetaminophen 325 mg capsule 650 mg PO Q6H PRN (Reason: fever of 100.4 or greater and/or pain) Qty: 120 2RF Rx Instructions: Not to exceed 4,000 mg in 24 hr ibuprofen 800 mg tablet 800 mg PO TID PRN (Reason: ear pain) Qty: 30 0RF polyethylene glycol 3350 [Miralax] 17 gram/dose powder 17 g PO DAILY PRN (Reason: constipation) Qty: 238 2RF Antacid Anti-Gas (ca carb-sim) 1,000-60 mg tablet,chewable See Rx Instructions .ROUTE .COMPLEX Qty: 21 2RF Dose Instruction: CHEW ONE TABLET BY MOUTH THREE TIMES DAILY NEEDED FOR ABDOMINAL pain Rx Instructions: CHEW ONE TABLET BY MOUTH THREE TIMES DAILY NEEDED FOR ABDOMINAL pain fluvoxamine 100 mg tablet See Rx Instructions .ROUTE .COMPLEX Qty: 60 1RF Dose Instruction: TAKE ONE TABLET BY MOUTH TWICE DAILY with fluvoxamine 50mg TWICE DAILY Rx Instructions: TAKE ONE TABLET BY MOUTH TWICE DAILY with fluvoxamine 50mg TWICE DAILY fluvoxamine 50 mg tablet See Rx Instructions .ROUTE .COMPLEX Qty: 60 1RF Dose Instruction: TAKE ONE TABLET BY MOUTH TWICE DAILY with fluvoxamine 100mg TWICE DAILY Rx Instructions: TAKE ONE TABLET BY MOUTH TWICE DAILY with fluvoxamine 100mg TWICE DAILY quetiapine 100 mg tablet See Rx Instructions .ROUTE .COMPLEX Qty: 90 1RF Dose Instruction: TAKE THREE TABLETS BY MOUTH AT BEDTIME Rx Instructions: TAKE THREE TABLETS BY MOUTH AT BEDTIME divalproex 500 mg tablet extended release 24 hr See Rx Instructions .ROUTE .COMPLEX Qty: 60 1RF Dose Instruction: TAKE ONE TABLET BY MOUTH TWICE DAILY Rx Instructions: TAKE ONE TABLET BY MOUTH TWICE DAILY docusate sodium 100 mg capsule See Rx Instructions .ROUTE .COMPLEX Qty: 360 3RF Dose Instruction: TAKE ONE CAPSULE BY MOUTH TWICE DAILY NEEDED FOR CONSTIPATION Rx Instructions: TAKE ONE CAPSULE BY MOUTH TWICE DAILY levothyroxine 125 mcg tablet See Rx Instructions .ROUTE .COMPLEX Qty: 90 1RF Dose Instruction: TAKE ONE TABLET BY MOUTH EVERY MORNING Rx Instructions: TAKE ONE TABLET BY MOUTH EVERY MORNING clonazepam 0.5 mg tablet 0.5 mg PO TID Qty: 90 2RF Safe Tussin DM 10-100 mg/5 mL liquid 10 ml PO Q6H PRN (Reason: Cough) omeprazole 20 mg capsule,delayed release(DR/EC) 20 mg PO BID@08,20 ergocalciferol (vitamin D2) 1,250 mcg (50,000 unit) capsule 50,000 unit PO Q7D Rx Instructions: on monday medroxyprogesterone 150 mg/mL suspension 150 mg IM Q90D Discharge Orders: Discharge ED (Routine); Ordered 06/03/22 Ordered By: James Perez Referrals: Ольга Quarles FNP [Primary Care Provider] - Discharge Diet: Regular Discharge Activity: Limit activity as instructed and Use walker/crutches as instructed Patient Instructions: Ankle Fracture (ED), Opioid Safety Activity Restrictions/Additional Instructions: Follow-up with medical provider as directed. Case management should contact you in the next several days to set up an appointment with orthopedic doctor for follow-up. Keep splint on and dry and limit any weightbearing on right foot until cleared by orthopedic doctor. Take medications as prescribed. Return to the ER or your medical provider if condition worsens. Please read and understand discharge instructions. Thank you for choosing [facility] for your healthcare needs today. Please realize this is an emergency room and that we are providing you with a medical screening exam and this may not be complete and all inclusive of all the testing and or work up that you may need to determine your ailment or severity of your illness. It is very important that you follow up as instructed or that you return to the Emergency Department should you have concerns or if your condition changes or worsens in any way. Coding Level of Care Code ED Senior Consultant for Lasha Turner
[2022-06-03] MEDS: acetaminophen 500 mg Tablet 1000 MG PO (17:48)
[2022-06-03] MEDS: tetanus-dipt-pertussis 0.5 mL SDV IM (18:34)
[2022-06-03 19:01] VITALS: PULSE 92; RESP 18; O2SAT 100
--- NOTE | 2022-06-06 08:42 | DCPLANNER ---
Addendum entered by Swapna Tinajero 06/10/22 08:56: Patient had a follow up appointment scheduled with ortho - patient did attend appointment. Addendum entered by Swapna Tinajero 06/07/22 11:40: Patient has a follow up appointment scheduled for , June 09, 2022 at 11:[address] Richardson at ortho. Original Note: servicing manager had message to schedule a follow up appointment for patient with ortho. servicing manager sent patients information to the front office staff at ortho. Patients information will be printed and reviewed. Clinic will call patient with appointment information.
== END 2022-06-03 19:02 | disposition home or self-care (01) ==
PROVIDERS: Emergency Provider Physician Assistant; PCP Nurse Practitioner Family
DX: S00.01XA Abrasion of scalp, initial encounter (principal); S82.54XA Nondisplaced fracture of medial malleolus of right tibia, initial encounter for closed fracture; Z87.891 Personal history of nicotine dependence; W18.39XA Other fall on same level, initial encounter; Z23 Encounter for immunization
CPT/HCPCS: 70450; 73610; 90471; 90715; 99284

== ENCOUNTER → 2022-06-09 11:39 | Outpatient (BNVA) | payer MEDICAID, SELFPAY | PROVIDERS: PCP Nurse Practitioner Family; Visit Provider Podiatrist Foot & Ankle Surgery | DX: S92.411A Displaced fracture of proximal phalanx of right great toe, initial encounter for closed fracture (principal); W19.XXXA Unspecified fall, initial encounter; X50.9XXA Other and unspecified overexertion or strenuous movements or postures, initial encounter | CPT/HCPCS: 73630; 99203 ==

== ENCOUNTER → 2022-07-06 07:47 | Outpatient (BNVA) | payer MEDICAID, SELFPAY | PROVIDERS: PCP Nurse Practitioner Family; Visit Provider Podiatrist Foot & Ankle Surgery | DX: S93.491A Sprain of other ligament of right ankle, initial encounter (principal); X58.XXXA Exposure to other specified factors, initial encounter | CPT/HCPCS: 99213 ==

== ENCOUNTER 2022-08-01 12:58 | Outpatient (CLI) | payer MEDICAID, SELFPAY ==
--- NOTE | 2022-08-01 13:46 | MM_ITS ---
WS: [id number] BILATERAL 3D TOMOSYNTHESIS DIGITAL DIAGNOSTIC MAMMOGRAPHY WITH CAD CLINICAL INFORMATION: LUMP IN LT BREAST HISTORY: History of bilateral breast reduction. Lump LEFT breast. COMPARISON: None. TECHNIQUE: Bilateral CC, MLO, and ML views. FINDINGS: Scattered fibroglandular densities bilaterally. Benign-appearing lucent centered dystrophic calcifica tions deep to the palpable marker in the 12:00 position anteriorly LEFT breast. No suspicious abnormalities RIGHT breast ULTRASOUND BREAST LEFT TECHNIQUE: Ultrasound left breast focused area of concern. CLINICAL INFORMATION: LUMP IN LT BREAST FINDINGS: Area of palpable concern, at the 12:00 position, 1 cm from the nipple is a shallow subcutaneous echog enic lesion with shadowing likely due to calcification. Echogenic lesion measures 4.9 x 3.7 x 9.4 mm. Benign calcifications in this area on the mammogram. This most likely represents hamartoma, lipoma, or fat necrosis. This is probably benign and recommend 6 month follow-up. Additional adjacent incidental calcification noted at the 12:00 position just inferior to the above- described lesion. MM/[place] [id number] IMPRESSION: BI-RADS: 3-Probably Benign FOLLOW UP: 6 Month Follow-up Recommend LEFT breast diagnostic mammography and ultrasound in 6 months.
== END 2022-08-01 12:59 | disposition home or self-care (01) ==
LOC: RAD 13:01
PROVIDERS: PCP Nurse Practitioner Family; Visit Provider Nurse Practitioner Family
DX: Z12.31 Encounter for screening mammogram for malignant neoplasm of breast (principal); N63.20 Unspecified lump in the left breast, unspecified quadrant
CPT/HCPCS: 76642; 77062; G0279

== ENCOUNTER → 2022-08-24 10:47 | Outpatient (BNVA) | payer MEDICAID, SELFPAY | PROVIDERS: PCP Nurse Practitioner Family; Visit Provider Nurse Practitioner Family | DX: T18.9XXA Foreign body of alimentary tract, part unspecified, initial encounter (principal); Y99.9 Unspecified external cause status; Z12.4 Encounter for screening for malignant neoplasm of cervix | CPT/HCPCS: 71046; 74018; 87624 ==

== ENCOUNTER → 2022-08-26 13:20 | Outpatient (BNVA) | payer MEDICAID, SELFPAY | PROVIDERS: PCP Nurse Practitioner Family; Visit Provider Nurse Practitioner Family | DX: T18.9XXA Foreign body of alimentary tract, part unspecified, initial encounter (principal); Y99.9 Unspecified external cause status | CPT/HCPCS: 74018 ==

== ENCOUNTER → 2022-09-01 13:19 | Outpatient (BNVA) | payer MEDICAID, SELFPAY | PROVIDERS: PCP Nurse Practitioner Family; Visit Provider Nurse Practitioner Family | DX: T18.9XXA Foreign body of alimentary tract, part unspecified, initial encounter (principal); Y99.9 Unspecified external cause status | CPT/HCPCS: 74018 ==

== ENCOUNTER → 2022-09-20 11:45 | Outpatient (BNVA) | payer MEDICAID, SELFPAY | PROVIDERS: PCP Nurse Practitioner Family; Visit Provider Nurse Practitioner Family | DX: E03.9 Hypothyroidism, unspecified (principal); E55.9 Vitamin D deficiency, unspecified; F63.9 Impulse disorder, unspecified; Z78.9 Other specified health status | CPT/HCPCS: 80053; 80061; 84443; 85025 ==

== ENCOUNTER 2022-12-21 11:13 | Outpatient (CLI) | payer MEDICAID, SELFPAY ==
[2022-12-21 12:33] LABS: Ferritin 56 ng/mL (15-150); Iron 86 ug/dL (37-145); Percent Saturation 25.4 % (20-50); Total Iron Binding Capacity 338 mcg/dl; Unsaturated Iron Binding 252 ug/dL (112-347)
[2022-12-21 12:48] LABS: Folate Level 12.9 ng/mL (4.8-37.3)
[2022-12-21 12:49] LABS: Vitamin B12 674 pg/mL (232-1245)
[2022-12-22 14:09] LABS: Follicle Stimulating Hormone Q 10.2 mIU/mL
[2022-12-23 14:54] LABS: Zinc Level, Serum or Plasma 69 mcg/dL (60-130)
== END 2022-12-21 11:14 | disposition home or self-care (01) ==
PROVIDERS: PCP Nurse Practitioner Family; Visit Provider Nurse Practitioner Family
DX: F50.89 Other specified eating disorder (principal); R53.83 Other fatigue
CPT/HCPCS: 36415; 82607; 82728; 82746; 83001; 83540; 83550; 84144; 84630

== ENCOUNTER 2023-02-06 13:27 | Outpatient (CLI) | payer MEDICAID, SELFPAY ==
--- NOTE | 2023-02-06 13:32 | US_ITS ---
WS: [id number] Left breast ultrasound, 02/06/2023 Clinical Data: 6MFU Comparison: Left breast ultrasound, 08/01/2022 Findings: In the superior aspect of the left breast 1 cm from the nipple there are superficial calcifications w hich show shadowing. These are probable dystrophic calcifications which have been seen on the mammogr am. Impression: 1. Disc trophic calcifications in the superior aspect of the left breast 1 cm from the nipple unchang ed. 2. Recommend return to annual screening mammograms. US/US breast LT limited* [id number] BIRADS: 1-Negative FOLLOW UP: See Report
--- NOTE | 2023-02-06 13:32 | MM_ITS ---
WS: [id number] Left breast diagnostic 3D tomosynthesis digital mammogram, 02/06/2023 Clinical Data: R92.8 - Other abnormal and inconclusive findings on diagn... Comparison: Mammogram, 08/01/2022 Findings: The small dystrophic calcifications in the upper outer quadrant left breast show no change. The breas t parenchymal pattern shows fat replacement. No spiculated masses nor secondary signs of carcinoma ar e seen. Impression: 1. Negative left breast mammogram. 2. Recommend return to annual screening mammograms. MM/[place] [id number] BIRADS: 2-Benign FOLLOW UP: See Report The CAD credit report checker was used.
== END 2023-02-06 13:28 | disposition home or self-care (01) ==
LOC: RAD 13:27
PROVIDERS: PCP Nurse Practitioner Family; Visit Provider Nurse Practitioner Family
DX: R92.8 Other abnormal and inconclusive findings on diagnostic imaging of breast (principal); R92.1 Mammographic calcification found on diagnostic imaging of breast
CPT/HCPCS: 76642; 77061; G0279

== ENCOUNTER → 2023-03-29 11:00 | Outpatient (BNVA) | payer MEDICAID, SELFPAY | PROVIDERS: PCP Nurse Practitioner Family; Visit Provider Nurse Practitioner Family | DX: G40.909 Epilepsy, unspecified, not intractable, without status epilepticus (principal); E55.9 Vitamin D deficiency, unspecified; E03.9 Hypothyroidism, unspecified | CPT/HCPCS: 80053; 80061; 80164; 81000; 81003; 82306; 83036; 84443; 85025; 87086 ==

== ENCOUNTER → 2023-04-17 08:44 | Outpatient (BNVA) | payer MEDICAID, SELFPAY | PROVIDERS: PCP Nurse Practitioner Family; Visit Provider Podiatrist Foot & Ankle Surgery | DX: L84 Corns and callosities (principal); M21.41 Flat foot [pes planus] (acquired), right foot; M21.42 Flat foot [pes planus] (acquired), left foot; M76.821 Posterior tibial tendinitis, right leg; Z91.81 History of falling; R26.9 Unspecified abnormalities of gait and mobility | CPT/HCPCS: 99213 ==

== ENCOUNTER 2023-04-27 16:23 | Emergency (ER) | payer MEDICAID, SELFPAY ==
--- NOTE | 2023-04-27 16:24 | XRR_ITS ---
PROCEDURE INFORMATION: Exam: XR Abdomen Exam date and time: 04/27/2023 5:02 PM Age: 38 years old Clinical indication: Other: Foreign body; Additional info: Fb TECHNIQUE: Imaging protocol: Radiologic exam of the abdomen. Views: Frontal supine view of the abdomen. 1 View. COMPARISON: CR XR KUB [id number] 09/01/2022 1:27 PM FINDINGS: Nonobstructive bowel gas pattern. The screw in the proximal stomach is out of the field of view on the provided images, please see separate chest x-ray. XR/XR KUB [id number] IMPRESSION: As above.
[2023-04-27 16:36] VITALS: BP 134/84; PULSE 105; RESP 16; TEMP 37.1; O2SAT 99; BMI 26.6
--- NOTE | 2023-04-27 16:43 | ED_ITS ---
HPI - General Adult General: Chief complaint: General Medical Stated complaint: injested screw Time Seen by Provider: 04/27/23 16:41 Source: patient Mode of arrival: ambulatory Limitations: no limitations History of Present Illness: 38-year-old female is very well-known to the ER and a long history of ingesting foreign bodies she states she swallowed a screw roughly 3 hours ago she denies any pain she had no vomiting has no other complaints this time Associated symptoms: Deny chest pain, dyspnea, headache(s), nausea, rash or vomiting Review of Systems Const: Denies: fever(s), chills, body aches or change in appetite ENMT: Denies: throat pain or dental pain Card: Denies: chest pain Resp: Denies: dyspnea GI: Denies: abdominal pain, nausea, vomiting or diarrhea Musc: Denies: neck pain or back pain Skin/Breast: Denies: rash Neuro: Denies: headache(s) PFSH ED PFSH: Medical History Vitamin D deficiency Depression Seizure disorder Psychiatric care Psychoses Mental disability Constipation Major depressive disorder, recurrent severe without psychotic features Post-traumatic stress disorder, chronic Hypothyroidism Surgical History Hx of bilateral breast reduction surgery H/O esophagogastroduodenoscopy (07/05/20) removal of FB History of cholecystectomy Social History Smoking and tobacco/nicotine status: former use of tobacco/nicotine Second hand smoke exposure: No Alcohol intake: never Substance/Drug Use: never Additional social history: Patient states that she grew up in [place]. She is currently living in a shelter and is under guardianship. She enjoys playing games and eating hamburgers. She is despondent that there is no place in [place] where she can get a hamburger and does not know how to make one on her own. Caregiver/support person: Yes Lives independently: No Household members: other Details: LIVES IN A ALF Housing: Assisted Living Facility Marital status: Single Current occupational status: disabled Current gender identity: Female Physical Exam Const: COMMON NORMALS: no acute distress, patient oriented x3 and healthy appearing HENMT: COMMON NORMALS: normocephalic and atraumatic HEAD & SCALP: normocephalic and atraumatic Eye: COMMON NORMALS: Equal, round and reactive pupils present PUPIL: Yes Equal, round and reactive pupils present Neck/C-Spine: COMMON NORMALS: full ROM and supple Chest: COMMONS NORMALS: normal inspection of the chest Resp: COMMON NORMALS: normal respiratory effort Cardio: COMMON NORMALS: regular rate, regular rhythm and No murmurs present (Cardio) RATE: regular rate RHYTHM: regular rhythm Extremity: COMMON NORMALS: normal to inspection and full ROM Neuro: COMMON NORMALS: patient oriented x3, moves all extremities and no focal motor deficits Psych: COMMON NORMALS: mental status grossly normal, Normal thought process present and cooperative THOUGHT PROCESS: Normal thought process present Skin: COMMON NORMALS: no rashes or lesions noted and no wounds GENERAL SKIN EXAM: no rashes or lesions noted Course Vital Signs: Vital signs: Vital Signs Temperature 98.7 F 04/27/23 16:36 Pulse Rate 105 H 04/27/23 16:36 Respiratory Rate 16 04/27/23 16:36 Blood Pressure 134/84 04/27/23 16:36 Pulse Oximetry 99 04/27/23 16:36 Oxygen Delivery Me thod Room Air 04/27/23 16:36 MDM - General Adult Medical Decision Making Patient presents here with a swallowed foreign body x-ray shows foreign body in the stomach I informed patient's caregiver she has had serial x-rays to make sure the screw passes she has any severe pain they are to return immediately they understand agree to plan. Medical Records I reviewed the patient's medical records. All radiology interpretation(s) finalized by discharge Discharge Plan Discharge Patient Disposition: Home Clinical Impression: Foreign body, swallowed Condition: Stable Prescriptions: No Action phenazopyridine [Pyridium] 200 mg tablet 200 mg PO TID PRN (Reason: uti symptoms) Qty: 6 0RF divalproex 500 mg tablet extended release 24 hr See Rx Instructions .ROUTE .COMPLEX Qty: 60 2RF Dose Instruction: TAKE ONE TABLET BY MOUTH TWICE DAILY Rx Instructions: TAKE ONE TABLET BY MOUTH TWICE DAILY fluvoxamine 100 mg tablet See Rx Instructions .ROUTE .COMPLEX Qty: 60 2RF Dose Instruction: TAKE ONE TABLET BY MOUTH TWICE DAILY Rx Instructions: TAKE ONE TABLET BY MOUTH TWICE DAILY fluvoxamine 50 mg tablet See Rx Instructions .ROUTE .COMPLEX Qty: 60 2RF Dose Instruction: TAKE ONE TABLET BY MOUTH TWICE DAILY Rx Instructions: TAKE ONE TABLET BY MOUTH TWICE DAILY quetiapine 100 mg tablet See Rx Instructions .ROUTE .COMPLEX Qty: 90 2RF Dose Instruction: TAKE THREE TABLETS BY MOUTH At Bedtime Rx Instructions: TAKE THREE TABLETS BY MOUTH At Bedtime ketoconazole 2 % cream 1 applic topical BID 14 Days Qty: 60 0RF latanoprost 0.005 % drops 1 drp ophthalmic (eye) QPM haloperidol 5 mg tablet 5 mg PO DAILY PRN (Reason: severe agitation) Qty: 30 0RF (DME) almeida balance brace See Rx Instructions .Route .MEDSUPPLY Qty: 1 0RF Rx Instructions: As directed, right lower extremity made by the shotatyana brandon ibuprofen 800 mg tablet 800 mg PO TID PRN (Reason: ear pain) Qty: 30 0RF Antacid Anti-Gas (ca carb-sim) 1,000-60 mg tablet,chewable See Rx Instructions .ROUTE .COMPLEX Qty: 21 2RF Dose Instruction: CHEW ONE TABLET BY MOUTH THREE TIMES DAILY NEEDED FOR ABDOMINAL pain Rx Instructions: CHEW ONE TABLET BY MOUTH THREE TIMES DAILY NEEDED FOR ABDOMINAL pain docusate sodium 100 mg capsule See Rx Instructions .ROUTE .COMPLEX Qty: 360 3RF Dose Instruction: TAKE ONE CAPSULE BY MOUTH TWICE DAILY NEEDED FOR CONSTIPATION Rx Instructions: TAKE ONE CAPSULE BY MOUTH TWICE DAILY omeprazole 20 mg capsule,delayed release(DR/EC) See Rx Instructions .ROUTE .COMPLEX Qty: 60 5RF Dose Instruction: TAKE ONE CAPSULE BY MOUTH TWICE DAILY Rx Instructions: TAKE ONE CAPSULE BY MOUTH TWICE DAILY polyethylene glycol 3350 17 gram/dose powder See Rx Instructions .ROUTE .COMPLEX Qty: 510 2RF Dose Instruction: FILL CAP TO LINE (17 GRAMS), MIX IN 8 OUNCES OF LIQUID AND DRINK BY MOUTH ONCE DAILY Rx Instructions: FILL CAP TO LINE (17 GRAMS), MIX IN 8 OUNCES OF LIQUID AND DRINK BY MOUTH ONCE DAILY acetaminophen 325 mg tablet See Rx Instructions .ROUTE .COMPLEX Qty: 120 5RF Dose Instruction: TAKE TWO TABLETS BY MOUTH EVERY 6 HOURS NEEDED FOR FEVER of 100.4 OR greater and/or pain. not TO exceed 4,000mg in 24 hours. Rx Instructions: TAKE TWO TABLETS BY MOUTH EVERY 6 HOURS NEEDED FOR FEVER of 100.4 OR greater and/or pain. not TO exceed 4,000mg in 24 hours. medroxyprogesterone 150 mg/mL suspension See Rx Instructions .ROUTE .COMPLEX Qty: 1 3RF Dose Instruction: INJECT 1mL INTRAMUSCULARLY ONCE every THREE MONTHS Rx Instructions: INJECT 1mL INTRAMUSCULARLY ONCE every THREE MONTHS clonazepam 0.5 mg tablet 0.5 mg PO TID Qty: 90 2RF levothyroxine 125 mcg tablet See Rx Instructions .ROUTE .COMPLEX Qty: 90 1RF Dose Instruction: TAKE ONE TABLET BY MOUTH EVERY MORNING Rx Instructions: TAKE ONE TABLET BY MOUTH EVERY MORNING Safe Tussin DM 10-100 mg/5 mL liquid 10 ml PO Q6H PRN (Reason: Cough) Discharge Orders: Discharge ED (Routine); Ordered 04/27/23 Ordered By: Omar Alicea Referrals: Ольга Quarles FNP [Primary Care Provider] - 1-3 days Discharge Diet: Advance as tolerated Discharge Activity: Resume usual activity Patient Instructions: Foreign Body - Swallowed Activity Restrictions/Additional Instructions: repeat xray in 2-4 days Coding Level of Care Code ED Python Java Developer for Lasha Turner
--- NOTE | 2023-04-27 16:43 | XRR_ITS ---
PROCEDURE INFORMATION: Exam: XR Chest Exam date and time: 04/27/2023 5:02 PM Age: 38 years old Clinical indication: Pain; Other: Swallowed foreign object; Additional info: Fb TECHNIQUE: Imaging protocol: Radiologic exam of the chest. Views: 1 view. COMPARISON: CR XR chest 2V* [id number] 08/24/2022 11:03 AM FINDINGS: Lungs: No consolidation. Pleural spaces: No pleural effusion. No pneumothorax. Heart/Mediastinum: No cardiomegaly. Bones/joints: No acute findings. Gastrointestinal tract: There is a screw in the proximal stomach below the diaphragm. XR/XR chest 1V portable [id number] IMPRESSION: Screw in the proximal stomach.
== END 2023-04-27 17:43 | disposition home or self-care (01) ==
PROVIDERS: Emergency Provider Emergency Medicine; PCP Nurse Practitioner Family
DX: T18.9XXA Foreign body of alimentary tract, part unspecified, initial encounter (principal); W44.D9XA Other magnetic metal objects entering into or through a natural orifice, initial encounter; Z87.891 Personal history of nicotine dependence
CPT/HCPCS: 71045; 74018; 99284

== ENCOUNTER → 2023-05-01 10:06 | Outpatient (BNVA) | payer MEDICAID, SELFPAY | PROVIDERS: PCP Nurse Practitioner Family; Visit Provider Nurse Practitioner Family | DX: Z87.821 Personal history of retained foreign body fully removed (principal) | CPT/HCPCS: 74018 ==

== ENCOUNTER → 2023-05-02 14:03 | Outpatient (BNVA) | payer MEDICAID, SELFPAY | PROVIDERS: PCP Nurse Practitioner Family; Visit Provider Family Medicine | DX: R39.9 Unspecified symptoms and signs involving the genitourinary system (principal) | CPT/HCPCS: 81000; 87077; 87086; 87184 ==

== ENCOUNTER → 2023-05-08 08:55 | Outpatient (BNVA) | payer MEDICAID, SELFPAY | PROVIDERS: PCP Nurse Practitioner Family; Visit Provider Nurse Practitioner Family | DX: R00.0 Tachycardia, unspecified (principal) | CPT/HCPCS: 74018; 80053; 85025; 93005 ==

== ENCOUNTER 2023-05-09 05:59 | Emergency (ER) | payer MEDICAID, SELFPAY ==
--- NOTE | 2023-05-09 06:03 | XRR_ITS ---
PROCEDURE INFORMATION: Exam: XR Abdomen Exam date and time: 05/09/2023 6:59 AM Age: 38 years old Clinical indication: Other: Swallowed fb; Additional info: Swallow fb. PT states she swallowed something plastic and feels like it is stuck in upper chest TECHNIQUE: Imaging protocol: Radiologic exam of the abdomen. Views: 2 Views. Upright and supine views. Total images: 3 COMPARISON: CR XR KUB [id number] 05/08/2023 9:04 AM FINDINGS: Gastrointestinal tract: Metallic screw projecting in the area of the ascending colon. Bowel gas pattern is nondistended and nonobstructive. Intraperitoneal space: Normal. No free air. Bones/joints: Unremarkable for age. Other findings: Moderate to large stool burden. XR/XR acute abdomen series [id number] IMPRESSION: 1. No acute cardiopulmonary process. 2. Metallic screw projecting in the area of the ascending colon. 3. Normal bowel gas pattern 4. Moderate to large stool burden.
[2023-05-09 06:06] VITALS: BP 138/85; PULSE 106; RESP 16; TEMP 36.7; O2SAT 96; BMI 33.2
--- NOTE | 2023-05-09 06:08 | W.ED.GENADLT ---
HPI - General Adult General: Chief complaint: Psychiatric Symptoms Stated complaint: swallowed foreign object Time Seen by Provider: 05/09/23 06:03 Source: patient Mode of arrival: ambulatory History of Present Illness: 38-year-old female who presents to the emergency room with a caregiver. She lives in an [facility]. She has a history of recurrently swallowing small objects. She has been hospitalized in the past for these episodes but has never had significant lethality associated with these attempts. When I asked patient about the recurrence she readily admits to the frequent episodes in the past. Earlier this month she swallowed a screw. Today she swallowed part of a plastic outlet cover. She was seen yesterday in her doctor's office for swallowing a screw which is still present in her colon and is being monitored. Flat affect in exam room. No aggressive behaviors at this time. Onset (ago): hour(s) Location: abdomen Quality: aching Pain Consistency: constant Relieving factors: none Exacerbating factors: none Associated symptoms: Deny chest pain, confusion, cough, diaphoresis, decreased appetite, dyspnea, fevers/chills, headache(s), malaise, nausea, rash, palpitations, seizures, short of breath, syncope, vomiting or weakness Treatments prior to arrival: none Review of Systems Const: Denies: fever(s), chills, malaise or diaphoresis Card: Denies: chest pain, palpitations or syncope Resp: Denies: dyspnea GI: Denies: abdominal pain, nausea or vomiting : Denies: dysuria, urinary frequency or urinary urgency Musc: Denies: neck pain or back pain Skin/Breast: Denies: rash Neuro: Denies: headache(s) or confusion PFSH ED PFSH: Medical History Vitamin D deficiency Depression Seizure disorder Psychiatric care Psychoses Mental disability Constipation Major depressive disorder, recurrent severe without psychotic features Post-traumatic stress disorder, chronic Hypothyroidism Surgical History Hx of bilateral breast reduction surgery H/O esophagogastroduodenoscopy (07/05/20) removal of FB History of cholecystectomy Social History Smoking and tobacco/nicotine status: former use of tobacco/nicotine Second hand smoke exposure: No Alcohol intake: never Substance/Drug Use: never Additional social history: Patient states that she grew up in [place]. She is currently living in a mcc and is under guardianship. She enjoys playing games and eating hamburgers. She is despondent that there is no place in [place] where she can get a hamburger and does not know how to make one on her own. Caregiver/support person: Yes Lives independently: No Household members: other Details: LIVES IN A RETIREMENT Housing: Assisted Living Facility Marital status: Single Current occupational status: disabled Current gender identity: Female Physical Exam Const: COMMON NORMALS: no acute distress GENERAL APPEARANCE: cooperative and comfortable ORIENTATION/CONSCIOUSNESS: Yes awake, Yes oriented to person, Yes oriented to place and Yes oriented to time HENMT: COMMON NORMALS: normocephalic, atraumatic and hearing grossly normal bilaterally HEAD & SCALP: normocephalic and atraumatic Resp: COMMON NORMALS: normal respiratory effort, No retractions, No use of accessory muscles and clear to auscultation bilaterally AUSCULTATION: clear to auscultation bilaterally Cardio: COMMON NORMALS: regular rate, regular rhythm and No murmurs present (Cardio) RATE: regular rate RHYTHM: regular rhythm GI: COMMON NORMALS: Soft to palpation and No hepatosplenomegaly present AUSCULTATION: Yes normoactive bowel sounds PALPATION: Yes Soft to palpation, No Tenderness to palpation present (GI), No Guarding due to palpation present (GI) and Yes No hepatosplenomegaly present Extremity: COMMON NORMALS: normal to inspection, capillary refill normal, no clubbing, cyanosis or edema, no calf tenderness and no pedal edema Neuro: SENSORIUM/ORIENTATION: Yes oriented to person, Yes oriented to place and Yes oriented to time Skin: COMMON NORMALS: no rashes or lesions noted GENERAL SKIN EXAM: no rashes or lesions noted Course Vital Signs: Vital signs: Vital Signs Temperature 98.0 F 05/09/23 06:06 Pulse Rate 106 H 05/09/23 06:06 Respiratory Rate 16 05/09/23 06:06 Blood Pressure 138/85 05/09/23 06:06 Pulse Oximetry 96 05/09/23 06:06 MDM - General Adult Medical Decision Making Screw that the patient had swallowed previously is still present. Which she described as swallowing earlier today was not radiopaque enough to be seen. In the past she has claimed to have swallowed things she has not may be possible that she just did not swallow anything. I reviewed the case with on-call psychiatry they are very familiar with her she is present in this fashion multiple times and they do not recommend admission at this time. Patient given lactulose to increase transit time is foreign bodies Medical Records I reviewed the patient's medical records. Lab Data I reviewed the patient's lab results. Radiology Impressions Chest/Abdomen X-ray 05/09/23 06:03 IMPRESSION: 1. No acute cardiopulmonary process. 2. Metallic screw projecting in the area of the ascending colon. 3. Normal bowel gas pattern 4. Moderate to large stool burden. All radiology interpretation(s) finalized by discharge Discharge Plan Discharge Patient Disposition: Home Clinical Impression: Constipation, Borderline personality disorder Swallowed foreign body Qualifiers: Encounter type: subsequent encounter Qualified Code(s): T18.9XXD - Foreign body of alimentary tract, part unspecified, subsequent encounter Condition: Stable Prescriptions: No Action phenazopyridine [Pyridium] 200 mg tablet 200 mg PO TID PRN (Reason: uti symptoms) Qty: 6 0RF divalproex 500 mg tablet extended release 24 hr See Rx Instructions .ROUTE .COMPLEX Qty: 60 2RF Dose Instruction: TAKE ONE TABLET BY MOUTH TWICE DAILY Rx Instructions: TAKE ONE TABLET BY MOUTH TWICE DAILY fluvoxamine 100 mg tablet See Rx Instructions .ROUTE .COMPLEX Qty: 60 2RF Dose Instruction: TAKE ONE TABLET BY MOUTH TWICE DAILY Rx Instructions: TAKE ONE TABLET BY MOUTH TWICE DAILY fluvoxamine 50 mg tablet See Rx Instructions .ROUTE .COMPLEX Qty: 60 2RF Dose Instruction: TAKE ONE TABLET BY MOUTH TWICE DAILY Rx Instructions: TAKE ONE TABLET BY MOUTH TWICE DAILY quetiapine 100 mg tablet See Rx Instructions .ROUTE .COMPLEX Qty: 90 2RF Dose Instruction: TAKE THREE TABLETS BY MOUTH At Bedtime Rx Instructions: TAKE THREE TABLETS BY MOUTH At Bedtime ketoconazole 2 % cream 1 applic topical BID 14 Days Qty: 60 0RF latanoprost 0.005 % drops 1 drp ophthalmic (eye) QPM haloperidol 5 mg tablet 5 mg PO DAILY PRN (Reason: severe agitation) Qty: 30 0RF (DME) almeida balance brace See Rx Instructions .Route .MEDSUPPLY Qty: 1 0RF Rx Instructions: As directed, right lower extremity made by the marcelle taylor sulfamethoxazole-trimethoprim [Bactrim DS] 800-160 mg tablet 1 tab PO BID Qty: 20 0RF ibuprofen 800 mg tablet 800 mg PO TID PRN (Reason: ear pain) Qty: 30 0RF Antacid Anti-Gas (ca carb-sim) 1,000-60 mg tablet,chewable See Rx Instructions .ROUTE .COMPLEX Qty: 21 2RF Dose Instruction: CHEW ONE TABLET BY MOUTH THREE TIMES DAILY NEEDED FOR ABDOMINAL pain Rx Instructions: CHEW ONE TABLET BY MOUTH THREE TIMES DAILY NEEDED FOR ABDOMINAL pain docusate sodium 100 mg capsule See Rx Instructions .ROUTE .COMPLEX Qty: 360 3RF Dose Instruction: TAKE ONE CAPSULE BY MOUTH TWICE DAILY NEEDED FOR CONSTIPATION Rx Instructions: TAKE ONE CAPSULE BY MOUTH TWICE DAILY omeprazole 20 mg capsule,delayed release(DR/EC) See Rx Instructions .ROUTE .COMPLEX Qty: 60 5RF Dose Instruction: TAKE ONE CAPSULE BY MOUTH TWICE DAILY Rx Instructions: TAKE ONE CAPSULE BY MOUTH TWICE DAILY polyethylene glycol 3350 17 gram/dose powder See Rx Instructions .ROUTE .COMPLEX Qty: 510 2RF Dose Instruction: FILL CAP TO LINE (17 GRAMS), MIX IN 8 OUNCES OF LIQUID AND DRINK BY MOUTH ONCE DAILY Rx Instructions: FILL CAP TO LINE (17 GRAMS), MIX IN 8 OUNCES OF LIQUID AND DRINK BY MOUTH ONCE DAILY acetaminophen 325 mg tablet See Rx Instructions .ROUTE .COMPLEX Qty: 120 5RF Dose Instruction: TAKE TWO TABLETS BY MOUTH EVERY 6 HOURS NEEDED FOR FEVER of 100.4 OR greater and/or pain. not TO exceed 4,000mg in 24 hours. Rx Instructions: TAKE TWO TABLETS BY MOUTH EVERY 6 HOURS NEEDED FOR FEVER of 100.4 OR greater and/or pain. not TO exceed 4,000mg in 24 hours. medroxyprogesterone 150 mg/mL suspension See Rx Instructions .ROUTE .COMPLEX Qty: 1 3RF Dose Instruction: INJECT 1mL INTRAMUSCULARLY ONCE every THREE MONTHS Rx Instructions: INJECT 1mL INTRAMUSCULARLY ONCE every THREE MONTHS clonazepam 0.5 mg tablet 0.5 mg PO TID Qty: 90 2RF levothyroxine 125 mcg tablet See Rx Instructions .ROUTE .COMPLEX Qty: 90 1RF Dose Instruction: TAKE ONE TABLET BY MOUTH EVERY MORNING Rx Instructions: TAKE ONE TABLET BY MOUTH EVERY MORNING [facility] mg/5 mL liquid 10 ml PO Q6H PRN (Reason: Cough) Qty: 200 3RF Discharge Orders: Discharge ED (Routine); Ordered 05/09/23 Ordered By: Lee Hough Referrals: Ольга Quarles FNP [Primary Care Provider] - Discharge Diet: Usual diet Discharge Activity: Resume usual activity Patient Instructions: Opioid Safety, Pain Management Activity Restrictions/Additional Instructions: Thank you for choosing [facility] for your healthcare needs today. Please realize this is an emergency room and that we are providing you with a medical screening exam and this may not be complete and all inclusive of all the testing and or work up that you may need to determine your ailment or severity of your illness. It is very important that you follow up as instructed or that you return to the Emergency Department should you have concerns or if your condition changes or worsens in any way. You are seen today after ingesting another foreign body. Recommend that you use lactulose to relieve constipation and increase the transit of the previous foreign body you ingested as well as the one you ingested this morning. We reviewed your case with psychiatry they do not recommend admission at this time Coding Level of Care Code ED Shingle Carrier for Lasha Turner
== END 2023-05-09 08:53 | disposition home or self-care (01) ==
PROVIDERS: Emergency Provider Family Medicine; PCP Nurse Practitioner Family
DX: T18.9XXA Foreign body of alimentary tract, part unspecified, initial encounter (principal); K59.00 Constipation, unspecified; F60.3 Borderline personality disorder; W44.B9XA Other plastic object entering into or through a natural orifice, initial encounter; W44.D9XA Other magnetic metal objects entering into or through a natural orifice, initial encounter; Z87.891 Personal history of nicotine dependence
CPT/HCPCS: 74022; 99283

== ENCOUNTER → 2023-05-15 08:45 | Outpatient (BNVA) | payer MEDICAID, SELFPAY | PROVIDERS: PCP Nurse Practitioner Family; Visit Provider Nurse Practitioner Family | DX: R10.9 Unspecified abdominal pain (principal); T18.2XXA Foreign body in stomach, initial encounter; W44.8XXA Other foreign body entering into or through a natural orifice, initial encounter | CPT/HCPCS: 74019 ==

== ENCOUNTER → 2023-05-22 09:30 | Outpatient (BNVA) | payer MEDICAID, SELFPAY | PROVIDERS: PCP Nurse Practitioner Family; Referring Provider Nurse Practitioner Family; Visit Provider Surgery | DX: T18.9XXD Foreign body of alimentary tract, part unspecified, subsequent encounter (principal); X58.XXXD Exposure to other specified factors, subsequent encounter | CPT/HCPCS: 99204; 99214 ==

== ENCOUNTER 2023-06-08 11:23 | Day surgery (SDC) | payer MEDICAID, SELFPAY ==
--- NOTE | 2023-06-08 11:36 | XR_ITS ---
WS: [id number] Exam: XR KUB [id number] Date/Time of Exam: 06/08/2023 11:36 AM Reason For Exam: Preop KUB for localization No bowel obstruction or free air. Mild ileus. No sign of organ enlargement. Bony structures are intac t. Mild lumbar dextroscoliosis. IMPRESSION: 1. Mild ileus. No acute abdominal finding.
[2023-06-08 12:14] VITALS: BP 109/76; PULSE 80; RESP 17; TEMP 37.6; O2SAT 98; BMI 36.0
--- NOTE | 2023-06-08 12:18 | W.PM.OPSUD ---
Surgery/Procedure H&P Update DATE OF PROCEDURE: June 08, 2023 DATE H&P PERFORMED: 05/22/23 H&P UPDATE INFORMATION: I have reviewed H&P completed within last 30 days, I have examined patient prior to procedure and No changes to prior documentation PLANNED PROCEDURE: Operation Date: 06/08/23 13:40 Proposed Procedures p EGD(Not Applicable) - DO julian Luther Foreign Body Removal(Not Applicable) - DO julian Luther Colonoscopy(Not Applicable) - DO julian Luther Exploratory Laparotomy(Not Applicable) - Kenney Justin DO
--- NOTE | 2023-06-08 12:24 | P.ANESASSM_ITS ---
Pre-Anesthetic Assessment Height/Weight: Height 1.68 m Operation Date: 06/08/23 13:40 Proposed Procedures p EGD(Not Applicable) - DO julian Luther Foreign Body Removal(Not Applicable) - DO julian Luther Colonoscopy(Not Applicable) - DO julian Luther Exploratory Laparotomy(Not Applicable) - Kenney Justin DO Social No alcohol and No tobacco Exam alert, oriented x 3, clear to auscultation bilaterally and regular rate & rhythm Consent from Eva De Souza public it administrator. Caregiver with patient as well. Airway Submandibular: within normal limits Cervical ROM: within normal limits Mallampati: Class I Pulmonary None reported CV/HEM Hypertension None reported Hepatic None reported Metabolic Thyroid Disease Neuropsych Deficit and Seizure Anesthetic Plan ASA status: 3 Anesthesia: General Risk of > 500 ml blood loss (7ml/kg in children): No Medications/Allergies Home Medications Medication Instructions Recorded Confirmed Last Taken Type latanoprost 0.005 % eye drops 1 drp ophthalmic (eye) QPM 03/17/22 06/07/23 04/13/22 History phenazopyridine 200 mg tablet 200 mg PO TID PRN uti symptoms 6 08/12/22 06/07/23 Unknown Rx (Pyridium) doses #6 tabs haloperidol 5 mg tablet 5 mg PO DAILY PRN severe agitation 12/08/22 06/07/23 Unknown Rx #30 tabs medroxyprogesterone 150 mg/mL See Rx Instructions .Route 02/28/23 06/07/23 Unknown Rx intramuscular suspension .COMPLEX #1 mL ketoconazole 2 % topical cream 1 applic topical BID feet 14 days 03/29/23 06/07/23 Unknown Rx #60 grams clonazepam 0.5 mg tablet 0.5 mg PO TID #90 tabs 04/13/23 06/07/23 06/07/23 08:00 Rx almeida balance brace #1 ea 04/17/23 05/29/23 Unknown Rx dextromethorphan-guaifenesin 10 10 ml PO Q6H PRN Cough #200 mL 05/09/23 06/07/23 Unknown Rx mg-100 mg/5 mL oral liquid (Safe Tussin DM) magnesium hydroxide 400 mg/5 mL 60 ml PO DAILY PRN constipation 05/15/23 06/07/23 Unknown Rx oral suspension (Milk of Magnesia) #355 mL metoprolol tartrate 25 mg tablet 25 mg PO BID 30 days #60 tabs 05/16/23 06/07/23 06/08/23 Rx bisacodyl 5 mg tablet,delayed 5 mg PO ONCE 1 day #4 tabs 05/22/23 06/07/23 06/07/23 Rx release (Dulcolax (bisacodyl)) magnesium citrate 296 ml PO BID 1 day #592 mL 05/22/23 06/07/23 06/07/23 Rx acetaminophen 325 mg tablet 325 mg PO PRN PRN Pain 06/07/23 06/07/23 Unknown History divalproex 500 mg tablet,extended 500 mg PO DAILY 06/07/23 06/07/23 06/07/23 08:00 History release 24 hr docusate sodium 100 mg capsule 100 mg PO BID 06/07/23 06/07/23 06/07/23 08:00 History fluvoxamine 100 mg tablet 100 mg PO BID 06/07/23 06/07/23 06/07/23 08:00 History levothyroxine 125 mcg tablet 125 mcg PO DAILY 06/07/23 06/07/23 06/08/23 History omeprazole 20 mg capsule,delayed 20 mg PO BID 06/07/23 06/07/23 06/07/23 08:00 History release polyethylene glycol 3350 17 17 g PO DAILY 06/07/23 06/07/23 06/07/23 08:00 History gram/dose oral powder (ClearLax) quetiapine 100 mg tablet 300 mg PO DAILY 06/07/23 06/07/23 06/06/23 21:00 His tory Allergies Allergy/AdvReac Type Severity Reaction Status Date / Time adhesive Allergy ALGY-Rash Verified 06/07/23 09:52 nitrofurantoin Allergy Unknown Verified 06/07/23 09:52 [From Macrobid] Penicillins Allergy Unknown Verified 06/07/23 09:52 BAND-AIDS Allergy Unknown Uncoded 06/07/23 09:52 TIDE DETERGENT Allergy Unknown Uncoded 06/07/23 09:52 [facility] Anesthesia Medical History Vitamin D deficiency Depression Seizure disorder Psychiatric care Psychoses Mental disability Constipation Major depressive disorder, recurrent severe without psychotic features Post-traumatic stress disorder, chronic Hypothyroidism Surgical History Hx of bilateral breast reduction surgery H/O esophagogastroduodenoscopy (07/05/20) removal of FB History of cholecystectomy Social History Smoking and tobacco/nicotine status: former use of tobacco/nicotine Second hand smoke exposure: No Alcohol intake: never Substance/Drug Use: never Additional social history: Patient states that she grew up in [place]. She is currently living in a senior care and is under guardianship. She enjoys playing games and eating hamburgers. She is despondent that there is no place in [place] where she can get a hamburger and does not know how to make one on her own. Caregiver/support person: Yes Lives independently: No Household members: other Details: LIVES IN A [facility] Housing: Assisted Living Facility Marital status: Single Current occupational status: disabled Current gender identity: Female Data Anesthesia Cardiac Studies: No Data to Display
[2023-06-08] MEDS: sodium chloride 0.9% 1,000 ML 30 ML IV (12:37)
[2023-06-08 14:30] VITALS: BP 92/61; PULSE 75; RESP 16; TEMP 36.4; O2SAT 100
[2023-06-08 14:35] VITALS: BP 104/79; PULSE 74; RESP 16; O2SAT 100
[2023-06-08 14:40] VITALS: BP 108/73; PULSE 74; RESP 16; O2SAT 98
[2023-06-08 14:44] VITALS: BP 110/63; PULSE 73; RESP 18; TEMP 36.6; O2SAT 97
[2023-06-08 14:54] VITALS: BP 105/73; PULSE 73; RESP 17; O2SAT 97
--- NOTE | 2023-06-08 15:37 | SUR.PREOP ---
1242: Per anesthesia we are cancelling the Urine HCG protocol order. Patient is on depo shot, has not had a cycle in over a year.
--- NOTE | 2023-06-08 16:33 | ANE.PACU2 ---
Inpatient post-anesthesia follow up: Vital signs: Temperature 97.8 F Pulse Rate 73 Respiratory Rate 17 Blood Pressure 105/73 Pulse Oximetry 97 Oxygen Delivery Me thod Room Air Oxygen Flow Rate 6 Fraction of Inspir ed Oxygen Hydration adequate: Yes Nausea and vomiting: No Mental status: Baseline Additional Comments: no apparent anesthetic complications noted
== END 2023-06-08 15:26 | disposition home or self-care (01) ==
PROVIDERS: PCP Nurse Practitioner Family; Visit Provider Surgery
PROC: 0DJ08ZZ Inspection of Upper Intestinal Tract, Via Natural or Artificial Opening Endoscopic (ICD-10-PCS; CPT 43235; principal; 2023-06-08 13:30)
PROC: 0DJD8ZZ Inspection of Lower Intestinal Tract, Via Natural or Artificial Opening Endoscopic (ICD-10-PCS; CPT 45378; 2023-06-08 13:30)
DX: T18.8XXA Foreign body in other parts of alimentary tract, initial encounter (principal); W44.8XXA Other foreign body entering into or through a natural orifice, initial encounter; D12.4 Benign neoplasm of descending colon; D12.3 Benign neoplasm of transverse colon; F79 Unspecified intellectual disabilities; F60.3 Borderline personality disorder; Z87.821 Personal history of retained foreign body fully removed; I10 Essential (primary) hypertension; E03.9 Hypothyroidism, unspecified; Z87.891 Personal history of nicotine dependence
CPT/HCPCS: 36415; 43239; 45385; 74018; 88305; J0330; J1100; J2405; J2704; J3010; J7030

== ENCOUNTER → 2023-06-23 11:06 | Outpatient (BNVA) | payer MEDICAID, SELFPAY | PROVIDERS: PCP Nurse Practitioner Family; Visit Provider Surgery | DX: Z87.821 Personal history of retained foreign body fully removed; D37.4 Neoplasm of uncertain behavior of colon | CPT/HCPCS: 99214 ==

== ENCOUNTER 2023-07-01 18:37 | Observation (INO) | payer MEDICAID, SELFPAY ==
[2023-07-01 19:03] VITALS: BP 110/71; PULSE 89; RESP 16; TEMP 36.9; O2SAT 98; BMI 34.3
--- NOTE | 2023-07-01 20:05 | XRR_ITS ---
PROCEDURE INFORMATION: Exam: XR Abdomen Exam date and time: 07/01/2023 8:42 PM Age: 38 years old Clinical indication: Other: Swallowed a screw TECHNIQUE: Imaging protocol: Radiologic exam of the abdomen. Views: Frontal supine view of the abdomen. 1 View. COMPARISON: CR XR KUB [id number] 06/08/2023 11:55 AM FINDINGS: Gastrointestinal tract: There is a radiopaque foreign body which looks like a screw in the left upper quadrant presumably in the stomach. Extensive feces in the right colon suggesting constipation. Bones/joints: Unremarkable. No acute osseous abnormality. XR/XR KUB portable [id number] IMPRESSION: Radiopaque foreign body which looks like a screw in the left upper quadrant presumably in the stomach.
--- NOTE | 2023-07-01 21:06 | XRR_ITS ---
PROCEDURE INFORMATION: Exam: XR Abdomen Exam date and time: 07/01/2023 9:08 PM Age: 38 years old Clinical indication: Abdominal pain; Generalized; Additional info: Lateral view for screw ingestion TECHNIQUE: Imaging protocol: Radiologic exam of the abdomen. Views: Frontal supine view of the abdomen. 1 View. COMPARISON: CR (ABDOMEN, ) 07/01/2023 8:42 PM FINDINGS: Gastrointestinal tract: No evidence of obstruction. There is a 41 mm radiopaque foreign body which looks like a screw projected over the left upper abdomen presumably in the stomach. Bones/joints: Unremarkable. XR/XR KUB [id number] IMPRESSION: 41 mm radiopaque foreign body which looks active screw projected over the left upper abdomen presumably in the stomach.
[2023-07-01 21:49] VITALS: BP 132/64; PULSE 85; RESP 16; O2SAT 97
--- NOTE | 2023-07-01 21:55 | P.HP_ITS ---
Providers/Chief Complaint Primary Care Provider: JACKIE Beverly Chief Complaint: Ate A Screw History of Present Illness Shelby Cherry is a 38 year old female With history of cognitive impairment and who lives with a caregiver, she has previous history of swallowing foreign bodies, this is frequently treated with nonoperative management, last time she swallowed a larger screw nonoperative management was attempted but due to im paired time for the screw to past the GI tract eventually she underwent an EGD and colonoscopy for retrieval. By this time escrow have already passed and no other findings were noted. She presents today after swallowing a screw. X-ray shows a foreign body in the stomach.No significant abdominal pain. Review of Systems General: Reports: 10 or more systems reviewed and unremarkable except in HPI and below Medications/Allergies Home Medications Medication Instructions Recorded Confirmed Last Taken Type latanoprost 0.005 % eye drops 1 drp ophthalmic (eye) QPM 03/17/22 06/23/23 04/13/22 History phenazopyridine 200 mg tablet 200 mg PO TID PRN uti symptoms 6 08/12/22 06/23/23 Unknown Rx (Pyridium) doses #6 tabs haloperidol 5 mg tablet 5 mg PO DAILY PRN severe agitation 12/08/22 06/23/23 Unknown Rx #30 tabs medroxyprogesterone 150 mg/mL See Rx Instructions .Route 02/28/23 06/23/23 Unknown Rx intramuscular suspension .COMPLEX #1 mL ketoconazole 2 % topical cream 1 applic topical BID feet 14 days 03/29/23 06/23/23 Unknown Rx #60 grams almeida balance brace #1 ea 04/17/23 06/23/23 Unknown Rx dextromethorphan-guaifenesin 10 10 ml PO Q6H PRN Cough #200 mL 05/09/23 06/23/23 Unknown Rx mg-100 mg/5 mL oral liquid (Safe Tussin DM) magnesium hydroxide 400 mg/5 mL 60 ml PO DAILY PRN constipation 05/15/23 06/23/23 Unknown Rx oral suspension (Milk of Magnesia) #355 mL bisacodyl 5 mg tablet,delayed 5 mg PO ONCE 1 day #4 tabs 05/22/23 06/23/23 06/07/23 Rx release (Dulcolax (bisacodyl)) magnesium citrate 296 ml PO BID 1 day #592 mL 05/22/23 06/23/23 06/07/23 Rx acetaminophen 325 mg tablet 325 mg PO PRN PRN Pain 06/07/23 06/23/23 Unknown History divalproex 500 mg tablet,extended 500 mg PO DAILY 06/07/23 06/23/23 06/07/23 08:00 History release 24 hr fluvoxamine 100 mg tablet 100 mg PO BID 06/07/23 06/23/23 06/07/23 08:00 History levothyroxine 125 mcg tablet 125 mcg PO DAILY 06/07/23 06/23/23 06/08/23 History omeprazole 20 mg capsule,delayed 20 mg PO BID 06/07/23 06/23/23 06/07/23 08:00 History release quetiapine 100 mg tablet 300 mg PO DAILY 06/07/23 06/23/23 06/06/23 21:00 History clonazepam 0.5 mg tablet 0.5 mg PO TID #90 tabs 06/15/23 06/23/23 Unknown Rx docusate sodium 100 mg capsule See Rx Instructions .Route 06/16/23 06/23/23 Unknown Rx .COMPLEX #360 caps metoprolol tartrate 25 mg tablet See Rx Instructions .Route 06/16/23 06/23/23 Unknown Rx .COMPLEX #60 tabs polyethylene glycol 3350 17 See Rx Instructions .Route 06/16/23 06/23/23 Unknown Rx gram/dose oral powder .COMPLEX #510 grams Allergies Allergy/AdvReac Type Severity Reaction Status Date / Time adhesive Allergy ALGY-Rash Verified 06/23/23 11:28 nitrofurantoin Allergy Unknown Verified 06/23/23 11:28 [From Macrobid] Penicillins Allergy Unknown Verified 06/23/23 11:28 BAND-AIDS Allergy Unknown Uncoded 06/23/23 11:28 TIDE DETERGENT Allergy Unknown Uncoded 06/23/23 11:28 PFSH Acute PFSH: Medical History Vitamin D deficiency Depression Seizure disorder Psychiatric care Psychoses Mental disability Constipation Major depressive disorder, recurrent severe without psychotic features Post-traumatic stress disorder, chronic Hypothyroidism Surgical History Hx of bilateral breast reduction surgery H/O esophagogastroduodenoscopy (07/05/20) removal of FB History of cholecystectomy Social History Smoking and tobacco/nicotine status: former use of tobacco/nicotine Second hand smoke exposure: No Alcohol intake: never Substance/Drug Use: never Additional social history: Patient states that she grew up in [place]. She is currently living in a care home and is under guardianship. She enjoys playing games and eating hamburgers. She is despondent that there is no place in [place] where she can get a hamburger and does not know how to make one on her own. Caregiver/support person: Yes Lives independently: No Household members: other Details: LIVES IN A [facility] Housing: Assisted Living Facility Marital status: Single Current occupational status: disabled Current gender identity: Female Vitals/I&O/Wt Last Vital Signs Temp 98.4 F 07/01/23 19:03 Pulse 85 07/01/23 21:49 Resp 16 07/01/23 21:49 BP 132/64 07/01/23 21:49 Pulse Ox 97 07/01/23 21:49 O2 Del Method Room Air 07/01/23 21:49 Weight last 48 hrs Weight 206 lb 9.6 oz Physical Exam GI: OTHER: Abdomen soft, nontender, nondistended. A&P Assessment and plan (1) Swallowed foreign body: Plan After complete history, physical examination and review of all available clinical data the following is my assessment. This is a 38-year-old female who has swallowed foreign body, appears to be I screw. Due to previous history of very delayed transit of a foreign body into the GI tract and considering the fact that the foreign body is still in the stomach I think the safest thing to do is to proceed with EGD and immediate retrieval of the foreign body to prevent possibility of delay passing of the foreign body or perforation of hollow viscus. I have discussed all the risk and benefits of the procedure with the caregiver including the risk of perforation of the esophagus stomach or duodenum, risk of injury to the mucosa while retrieving the screw, risk of not being able to retrieve the screw. Caregiver shows understanding and agrees to proceed. Patient will be taken to the GI lab today and she will be discharged after the procedure. Attestations Medical Necessity Statement*: Patient will be discharged today after EGD. Coding Level of Care Code Acute Code for Chg Fwd Diagnoses Swallowed foreign body, subsequent encounter T18.9XXA
--- NOTE | 2023-07-01 22:03 | W.ED.GENADLT ---
HPI - General Adult General: Chief complaint: Airway/Esophagus Foreign Body Stated complaint: Ate A Screw Time Seen by Provider: 07/01/23 20:51 History of Present Illness: 38-year-old female with an extensive history of hyperphasia. Evidently, earlier in the evening, she swallowed a screw off of a chair in the home. She complains of nausea. Associated symptoms: Reports nausea; Deny dyspnea or vomiting Review of Systems Const: Denies: fever(s) Resp: Denies: dyspnea GI: Reports: abdominal pain and nausea; Denies: vomiting or dysphagia PFSH ED PFSH: Medical History Vitamin D deficiency Depression Seizure disorder Psychiatric care Psychoses Mental disability Constipation Major depressive disorder, recurrent severe without psychotic features Post-traumatic stress disorder, chronic Hypothyroidism Surgical History Hx of bilateral breast reduction surgery H/O esophagogastroduodenoscopy (07/05/20) removal of FB History of cholecystectomy Social History Smoking and tobacco/nicotine status: former use of tobacco/nicotine Second hand smoke exposure: No Alcohol intake: never Substance/Drug Use: never Additional social history: Patient states that she grew up in [place]. She is currently living in a nursing home and is under guardianship. She enjoys playing games and eating hamburgers. She is despondent that there is no place in [place] where she can get a hamburger and does not know how to make one on her own. Caregiver/support person: Yes Lives independently: No Household members: other Details: LIVES IN A LONGTERM Housing: Assisted Living Facility Marital status: Single Current occupational status: disabled Current gender identity: Female Physical Exam Const: COMMON NORMALS: no acute distress GENERAL APPEARANCE: cooperative; not ill appearing and not frail appearing HENMT: COMMON NORMALS: normocephalic, atraumatic and Normal external nose present HEAD & SCALP: normocephalic and atraumatic FACE & SINUS: normal facial exam and face symmetric NOSE: Normal external nose present Eye: COMMON NORMALS: Equal, round and reactive pupils present and EOMs intact bilaterally PUPIL: Yes Equal, round and reactive pupils present Neck/C-Spine: GENERAL: Yes trachea midline Chest: CHEST: Yes Symmetrical chest wall rise Resp: COMMON NORMALS: normal respiratory effort, No retractions, No use of accessory muscles and clear to auscultation bilaterally AUSCULTATION: clear to auscultation bilaterally Cardio: COMMON NORMALS: regular rate and regular rhythm RATE: regular rate RHYTHM: regular rhythm GI: COMMON NORMALS: Normal to inspection, nondistended, normoactive bowel sounds present Extremity: COMMON NORMALS: no pedal edema Neuro: CODIE COMA SCALE: document GCS findings Codie coma scale eye opening: Spontaneous [place] coma scale verbal response: Orientated [place] coma scale motor response: [place] commands [place] coma scale total score: 15 SENSORY EXAM: Yes extremities (intact) Psych: COMMON NORMALS: speech normal SPEECH: Yes normal speech Skin: COMMON NORMALS: no rashes or lesions noted GENERAL SKIN EXAM: no rashes or lesions noted Course Vital Signs: Vital signs: Vital Signs Temperature 97.8 F 07/02/23 02:35 Pulse Rate 93 07/02/23 02:35 Respiratory Rate 18 07/02/23 02:35 Blood Pressure 123/70 07/02/23 02:35 Pulse Oximetry 98 07/02/23 02:35 Oxygen Delivery Me thod Room Air 07/02/23 01:01 MDM - General Adult Medical Decision Making KUB shows a pointed screw in the stomach. Spoke with surgery. Because of the difficulty she has had with passing these recently, he is electing to take the patient to the GI lab tonight for removal. GI Lab is on their way in. She remains stable. Lab Data Radiology Impressions KUB X-Ray 07/01/23 21:06 IMPRESSION: 41 mm radiopaque foreign body which looks active screw projected over the left upper abdomen presumably in the stomach. All radiology interpretation(s) finalized by discharge Discharge Plan Discharge Patient Disposition: Placed in Observation Admit Provider: Scott Dudley Clinical Impression: Foreign body, swallowed Discharge Diet: As Directed Discharge Activity: Resume usual activity Coding Level of Care Code ED Value Engineer for Lasha Turner
--- NOTE | 2023-07-01 22:07 | ANES.PREANE2 ---
Pre-Anesthetic Assessment Height/Weight: Height 1.65 m Weight 93.712 kg Temp Pulse Resp BP Pulse Ox O2 Del Method 98.4 F 85 16 132/64 97 Room Air 07/01/23 19:03 07/01/23 21:49 07/01/23 21:49 07/01/23 21:49 07/01/23 21:49 07/01/23 21:49 Operation Date: 07/01/23 22:00 Proposed Procedures p EGD WITH FOREIGN BODY REMOVAL(Not Applicable) - Scott Dudley MD Familial anesthetic complications: NOne Was Beta Cecilia taken within 24 hours: Yes Was Clonidine taken within 24 hours: N/A Last intake: > 8hrs Social No alcohol and No tobacco Exam alert, oriented x 3, clear to auscultation bilaterally and regular rate & rhythm Airway Mallampati: Class III Dentition: full Metabolic Thyroid Disease Anesthetic Plan ASA status: 2 Anesthesia: General Risk of > 500 ml blood loss (7ml/kg in children): No Medications/Allergies Home Medications Medication Instructions Recorded Confirmed Last Taken Type latanoprost 0.005 % eye drops 1 drp ophthalmic (eye) QPM 03/17/22 06/23/23 04/13/22 History phenazopyridine 200 mg tablet 200 mg PO TID PRN uti symptoms 6 08/12/22 06/23/23 Unknown Rx (Pyridium) doses #6 tabs haloperidol 5 mg tablet 5 mg PO DAILY PRN severe agitation 12/08/22 06/23/23 Unknown Rx #30 tabs medroxyprogesterone 150 mg/mL See Rx Instructions .Route 02/28/23 06/23/23 Unknown Rx intramuscular suspension .COMPLEX #1 mL ketoconazole 2 % topical cream 1 applic topical BID feet 14 days 03/29/23 06/23/23 Unknown Rx #60 grams almeida balance brace #1 ea 04/17/23 06/23/23 Unknown Rx dextromethorphan-guaifenesin 10 10 ml PO Q6H PRN Cough #200 mL 05/09/23 06/23/23 Unknown Rx mg-100 mg/5 mL oral liquid (Safe Tussin DM) magnesium hydroxide 400 mg/5 mL 60 ml PO DAILY PRN constipation 05/15/23 06/23/23 Unknown Rx oral suspension (Milk of Magnesia) #355 mL bisacodyl 5 mg tablet,delayed 5 mg PO ONCE 1 day #4 tabs 05/22/23 06/23/23 06/07/23 Rx release (Dulcolax (bisacodyl)) magnesium citrate 296 ml PO BID 1 day #592 mL 05/22/23 06/23/23 06/07/23 Rx acetaminophen 325 mg tablet 325 mg PO PRN PRN Pain 06/07/23 06/23/23 Unknown History divalproex 500 mg tablet,extended 500 mg PO DAILY 06/07/23 06/23/23 06/07/23 08:00 History release 24 hr fluvoxamine 100 mg tablet 100 mg PO BID 06/07/23 06/23/23 06/07/23 08:00 History levothyroxine 125 mcg tablet 125 mcg PO DAILY 06/07/23 06/23/23 06/08/23 History omeprazole 20 mg capsule,delayed 20 mg PO BID 06/07/23 06/23/23 06/07/23 08:00 History release quetiapine 100 mg tablet 300 mg PO DAILY 06/07/23 06/23/23 06/06/23 21:00 History clonazepam 0.5 mg tablet 0.5 mg PO TID #90 tabs 06/15/23 06/23/23 Unknown Rx docusate sodium 100 mg capsule See Rx Instructions .Route 06/16/23 06/23/23 Unknown Rx .COMPLEX #360 caps metoprolol tartrate 25 mg tablet See Rx Instructions .Route 06/16/23 06/23/23 Unknown Rx .COMPLEX #60 tabs polyethylene glycol 3350 17 See Rx Instructions .Route 06/16/23 06/23/23 Unknown Rx gram/dose oral powder .COMPLEX #510 grams Allergies Allergy/AdvReac Type Severity Reaction Status Date / Time adhesive Allergy ALGY-Rash Verified 06/23/23 11:28 nitrofurantoin Allergy Unknown Verified 06/23/23 11:28 [From Macrobid] Penicillins Allergy Unknown Verified 06/23/23 11:28 BAND-AIDS Allergy Unknown Uncoded 06/23/23 11:28 TIDE DETERGENT Allergy Unknown Uncoded 06/23/23 11:28 [facility] Anesthesia Medical History Vitamin D deficiency Depression Seizure disorder Psychiatric care Psychoses Mental disability Constipation Major depressive disorder, recurrent severe without psychotic features Post-traumatic stress disorder, chronic Hypothyroidism Surgical History Hx of bilateral breast reduction surgery H/O esophagogastroduodenoscopy (07/05/20) removal of FB History of cholecystectomy Social History Smoking and tobacco/nicotine status: former use of tobacco/nicotine Second hand smoke exposure: No Alcohol intake: never Substance/Drug Use: never Additional social history: Patient states that she grew up in [place]. She is currently living in a nursing home and is under guardianship. She enjoys playing games and eating hamburgers. She is despondent that there is no place in [place] where she can get a hamburger and does not know how to make one on her own. Caregiver/support person: Yes Lives independently: No Household members: other Details: LIVES IN A RESIDENTIAL Housing: Assisted Living Facility Marital status: Single Current occupational status: disabled Current gender identity: Female Data Anesthesia Cardiac Studies: No Data to Display
--- NOTE | 2023-07-01 22:08 | PC.NURSE ---
Spoke with Eva De Souza @ [phone] for verbal consent to take pt to GI lab for removal of screw. Witness auth by 2nd- House super- Cait rn.
[2023-07-01 22:16] VITALS: RESP 15; O2SAT 98
[2023-07-01 23:57] VITALS: BP 121/72; PULSE 100; RESP 14; TEMP 36.1; O2SAT 100
[2023-07-02] VITALS (8 sets, daily range): BP systolic 112–127; BP diastolic 36–80; PULSE 91–93; RESP 16–18; TEMP 36.6; O2SAT 97–99; BMI 33.6
--- NOTE | 2023-07-02 00:24 | PM.TDS ---
Transfer Summary Providers Date of Admission: 07/02/2023 Date of Discharge/Transfer: 07/02/23 Attending Provider at Admission: Octavia Attending Provider at Transfer: Scott Dudley MD Primary Care Provider: JACKIE Beverly Transfer Plans: Anticipated date of transfer: 07/02/23. Additional transfer facility information: Patient being transferred to [facility] in [place] for GI evaluation and foreign body retrieval. . Diagnoses at Discharge Discharge Diagnosis (1) Swallowed foreign body: Status: Acute Reason for Visit Reason for Visit Ate A Screw Hospital Course Hospital Course 38-year-old female with history of cognitive decline who swallowed a screw, she has history of swallowing foreign bodies in the past, due to this being pointed screw I decided to Proceed with upper endoscopy. After upper endoscopy was done the stomach was noted to be full of fluid and food, despite multiple maneuvers I was unable to adequate all the fluid from the stomach. Therefore it was impossible to visualize the screw to safely retrieve it. I was able to partially visualize the screw and verify that it is in the fundus of the stomach surrounded by food. I contacted GI team in [place] and decided to proceed with transfer to higher level of care for repeat endoscopy and attempted retrieval of the screw. Patient has been accepted will be transferred to the hospitalist team in [facility] and she will be under the care of Dr. Julián CACERES. Physical Exam GI: OTHER: Abdomen is soft, nontender, nondistended. TS Data Studies Completed and Pending Pending at discharge Category Date Time Status CBC Auto Diff [Complete Blood Count w/Auto] Routine Lab 07/01/23 21:32 Ordered CMP [Comprehensive Metabolic Panel] Routine Lab 07/01/23 21:32 Ordered Completed Studies During Hospitalization Category Date Time Status XR KUB 01859 Stat Exams 07/01/23 21:06 Completed XR KUB portable 12500 Stat Exams 07/01/23 20:05 Completed Radiology Impressions KUB X-Ray 07/01/23 21:06 IMPRESSION: 41 mm radiopaque foreign body which looks active screw projected over the left upper abdomen presumably in the stomach. Recent Clincial Data Last Vital Signs Temp 97 F L 07/01/23 23:57 Pulse 92 07/02/23 00:20 Resp 18 07/02/23 00:20 BP 120/36 07/02/23 00:20 Pulse Ox 99 07/02/23 00:20 O2 Del Method Room Air 07/02/23 00:20 Vital Signs Temp Pulse Resp BP Pulse Ox O2 Del Method 07/02/23 00:20 92 18 120/36 99 Room Air 07/02/23 00:15 91 16 127/45 97 Room Air 07/02/23 00:10 91 16 124/44 98 Room Air 07/02/23 00:05 91 16 122/63 99 Room Air 07/02/23 00:00 92 16 112/80 98 Room Air 07/01/23 23:57 97 F L 100 14 121/72 100 Room Air 07/01/23 22:16 15 98 07/01/23 21:49 85 16 132/64 97 Room Air 07/01/23 19:03 98.4 F 89 16 110/71 98 Room Air Intake & Output/Weight 06/29/23 06/30/23 07/01/23 07/02/23 06:59 06:59 06:59 06:59 Intake Total 700 / 700 Output Total 0 / 0 Balance 700 / 700 Weight 206 lb 9.6 oz Vitals Last Vital Signs Temp 97 F L 07/01/23 23:57 Pulse 92 07/02/23 00:20 Resp 18 07/02/23 00:20 BP 120/36 07/02/23 00:20 Pulse Ox 99 07/02/23 00:20 O2 Del Method Room Air 07/02/23 00:20 TS Medications Medications Sodium Chloride (Sodium Chloride 0.9%) 1,000 mls @ 30 mls/hr IV .Q24H ONE Stop: 07/02/23 21:29 Discontinued Medications Dexamethasone (Dexamethasone 4 Mg/Ml Inj) Confirm Administered Dose 4 mg .ROUTE .STK-MED ONE Stop: 07/01/23 23:22 Fentanyl (Fentanyl 50 Mcg/Ml Inj 2ml) Confirm Administered Dose 100 mcg .ROUTE .STK-MED ONE Stop: 07/01/23 21:19 Lidocaine HCl (Lidocaine 1% Inj 20 Ml) 0.1 ml INTRADERMA ONCE ONE Stop: 07/01/23 21:31 Lidocaine HCl (Lidocaine 2% Inj 20 Ml) Confirm Administered Dose 20 ml .ROUTE .STK-MED ONE Stop: 07/01/23 23:12 Ondansetron HCl (Ondansetron 2 Mg/Ml Sdv 2 Ml) Confirm Administered Dose 4 mg .ROUTE .STK-MED ONE Stop: 07/01/23 23:22 Propofol (Propofol 10 Mg/Ml Sdv 20 Ml) Confirm Administered Dose 200 mg .ROUTE .STK-MED ONE Stop: 07/01/23 21:16 Succinylcholine Chloride (Succinylcholine 20 Mg/Ml Sdv 10ml) Confirm Administered Dose 200 mg .ROUTE .STK-MED ONE Stop: 07/01/23 21:19 Allergies adhesive Allergy (Verified 06/23/23 11:28) ALGY-Rash nitrofurantoin [From Macrobid] Allergy (Verified 06/23/23 11:28) Unknown Penicillins Allergy (Verified 06/23/23 11:28) Unknown BAND-AIDS Allergy (Uncoded 06/23/23 11:28) Unknown TIDE DETERGENT Allergy (Uncoded 06/23/23 11:28) Unknown Home Medications latanoprost 0.005 % eye drops 1 drp ophthalmic (eye) QPM 03/17/22 [History Confirmed 06/23/23] phenazopyridine 200 mg tablet (Pyridium) 200 mg PO TID PRN uti symptoms 6 doses #6 tabs 08/12/22 [Rx Confirmed 06/23/23] haloperidol 5 mg tablet 5 mg PO DAILY PRN severe agitation #30 tabs 12/08/22 [Rx Confirmed 06/23/23] medroxyprogesterone 150 mg/mL intramuscular suspension See Rx Instructions .Route .COMPLEX #1 mL 02/28/23 [Rx Confirmed 06/23/23] ketoconazole 2 % topical cream 1 applic topical BID feet 14 days #60 grams 03/29/23 [Rx Confirmed 06/23/23] almeida balance brace #1 ea 04/17/23 [Rx Confirmed 06/23/23] dextromethorphan-guaifenesin 10 mg-100 mg/5 mL oral liquid (Safe Tussin DM) 10 ml PO Q6H PRN Cough #200 mL 05/09/23 [Rx Confirmed 06/23/23] magnesium hydroxide 400 mg/5 mL oral suspension (Milk of Magnesia) 60 ml PO DAILY PRN constipation #355 mL 05/15/23 [Rx Confirmed 06/23/23] bisacodyl 5 mg tablet,delayed release (Dulcolax (bisacodyl)) 5 mg PO ONCE 1 day #4 tabs 05/22/23 [Rx Confirmed 06/23/23] magnesium citrate 296 ml PO BID 1 day #592 mL 05/22/23 [Rx Confirmed 06/23/23] acetaminophen 325 mg tablet 325 mg PO PRN PRN Pain 06/07/23 [History Confirmed 06/23/23] divalproex 500 mg tablet,extended release 24 hr 500 mg PO DAILY 06/07/23 [History Confirmed 06/23/23] fluvoxamine 100 mg tablet 100 mg PO BID 06/07/23 [History Confirmed 06/23/23] levothyroxine 125 mcg tablet 125 mcg PO DAILY 06/07/23 [History Confirmed 06/23/23] omeprazole 20 mg capsule,delayed release 20 mg PO BID 06/07/23 [History Confirmed 06/23/23] quetiapine 100 mg tablet 300 mg PO DAILY 06/07/23 [History Confirmed 06/23/23] clonazepam 0.5 mg tablet 0.5 mg PO TID #90 tabs 06/15/23 [Rx Confirmed 06/23/23] docusate sodium 100 mg capsule See Rx Instructions .Route .COMPLEX #360 caps 06/16/23 [Rx Confirmed 06/23/23] metoprolol tartrate 25 mg tablet See Rx Instructions .Route .COMPLEX #60 tabs 06/16/23 [Rx Confirmed 06/23/23] polyethylene glycol 3350 17 gram/dose oral powder See Rx Instructions .Route .COMPLEX #510 grams 06/16/23 [Rx Confirmed 06/23/23] Discharge Plan Discharge Patient Disposition: Home Condition: Stable Prescriptions: Continued phenazopyridine [Pyridium] 200 mg tablet 200 mg PO TID PRN (Reason: uti symptoms) Qty: 6 0RF ketoconazole 2 % cream 1 applic topical BID 14 Days Qty: 60 0RF latanoprost 0.005 % drops 1 drp ophthalmic (eye) QPM haloperidol 5 mg tablet 5 mg PO DAILY PRN (Reason: severe agitation) Qty: 30 0RF (DME) almeida balance brace See Rx Instructions .Route .MEDSUPPLY Qty: 1 0RF Rx Instructions: As directed, right lower extremity made by the shoe [employer]on magnesium hydroxide [Milk of Magnesia] 400 mg/5 mL suspension 60 ml PO DAILY PRN (Reason: constipation) Qty: 355 3RF magnesium citrate Solution 296 ml PO BID 1 Days Qty: 592 0RF Rx Instructions: take 296ml at 12:00PM and then take 296Ml at 08:00PM for colonoscopy bisacodyl [Dulcolax (bisacodyl)] 5 mg tablet,delayed release (DR/EC) 5 mg PO ONCE 1 Days Qty: 4 0RF Rx Instructions: Take all 4 tablets at 2:00pm with an 8oz. glass of water for colonoscopy clonazepam 0.5 mg tablet 0.5 mg PO TID Qty: 90 2RF medroxyprogesterone 150 mg/mL suspension See Rx Instructions .ROUTE .COMPLEX Qty: 1 3RF Dose Instruction: INJECT 1mL INTRAMUSCULARLY ONCE every THREE MONTHS Rx Instructions: INJECT 1mL INTRAMUSCULARLY ONCE every THREE MONTHS Safe Tussin DM 10-100 mg/5 mL liquid 10 ml PO Q6H PRN (Reason: Cough) Qty: 200 3RF metoprolol tartrate 25 mg tablet See Rx Instructions .ROUTE .COMPLEX Qty: 60 2RF Dose Instruction: TAKE ONE TABLET BY MOUTH TWICE DAILY Rx Instructions: TAKE ONE TABLET BY MOUTH TWICE DAILY polyethylene glycol 3350 17 gram/dose powder See Rx Instructions .ROUTE .COMPLEX Qty: 510 3RF Dose Instruction: FILL CAP TO LINE (17 GRAMS), MIX IN 8 OUNCES OF LIQUID AND DRINK BY MOUTH ONCE DAILY Rx Instructions: FILL CAP TO LINE (17 GRAMS), MIX IN 8 OUNCES OF LIQUID AND DRINK BY MOUTH ONCE DAILY docusate sodium 100 mg capsule See Rx Instructions .ROUTE .COMPLEX Qty: 360 3RF Dose Instruction: TAKE ONE CAPSULE BY MOUTH TWICE DAILY Rx Instructions: TAKE ONE CAPSULE BY MOUTH TWICE DAILY acetaminophen 325 mg tablet 325 mg PO PRN PRN (Reason: Pain) Rx Instructions: TAKE TWO TABLETS BY MOUTH EVERY 6 HOURS NEEDED FOR FEVER of 100.4 OR greater and/or pain. not TO exceed 4,000mg in 24 hours. quetiapine 100 mg tablet 300 mg PO DAILY Rx Instructions: TAKE THREE TABLETS BY MOUTH At Bedtime fluvoxamine 100 mg tablet 100 mg PO BID Rx Instructions: TAKE ONE TABLET BY MOUTH TWICE DAILY levothyroxine 125 mcg tablet 125 mcg PO DAILY Rx Instructions: TAKE ONE TABLET BY MOUTH EVERY MORNING divalproex 500 mg tablet extended release 24 hr 500 mg PO DAILY Rx Instructions: TAKE ONE TABLET BY MOUTH TWICE DAILY omeprazole 20 mg capsule,delayed release(DR/EC) 20 mg PO BID Rx Instructions: TAKE ONE CAPSULE BY MOUTH TWICE DAILY Discharge Orders: Discharge Order (Routine); Ordered 07/02/23 Ordered By: Scott Dudley Discharge Diet: As Directed Discharge Activity: Resume usual activity Activity Restrictions/Additional Instructions: Patient will be transferred to [place] for retrieval of foreign body's abdominal retrieval in our institution fail due to excessive amount of food in the stomach, again unable to acquire this amount of food with a single lumen scope therefore I was unable to visualize retrieve the foreign body, I was able to partially visualized and confirmed that the screws are still in the fundus of the stomach. Transfer Attestations Time Spent in Transfer Care: less than 30 min Status at Transfer: Cognitive status at transfer: cognitively intact; Behavioral status at transfer: cooperative; Quality Metrics Clinical Quality Measures [ No reported AMI, CVA or VTE this stay] Coding Level of Care Code Acute Code for Chg Fwd Diagnoses Swallowed foreign body, subsequent encounter T18.9XXA
== END 2023-07-02 02:38 | disposition other institution, planned readmission (95) ==
LOC: ER 20:51 → GILAB 21:30 → MEDSURG 07-02 00:33
PROVIDERS: Admitting Provider Surgery; Emergency Provider Emergency Medicine; PCP Nurse Practitioner Family; Visit Provider Surgery
PROC: 0DJ08ZZ Inspection of Upper Intestinal Tract, Via Natural or Artificial Opening Endoscopic (ICD-10-PCS; CPT 43235; principal; 2023-07-01 22:00)
DX: T18.2XXA Foreign body in stomach, initial encounter (principal); W44.8XXA Other foreign body entering into or through a natural orifice, initial encounter; K31.89 Other diseases of stomach and duodenum; E03.9 Hypothyroidism, unspecified; Z87.891 Personal history of nicotine dependence
CPT/HCPCS: 43247; 74018; 96360; 96361; 99285; G0378; J0330; J1100; J2405; J2704; J3010

== ENCOUNTER → 2023-07-31 15:42 | Outpatient (BNVA) | payer MEDICAID, SELFPAY | PROVIDERS: PCP Nurse Practitioner Family; Visit Provider Nurse Practitioner Family | DX: D64.9 Anemia, unspecified (principal) | CPT/HCPCS: 80053; 85025 ==

== ENCOUNTER → 2023-08-07 09:56 | Outpatient (BNVA) | payer MEDICAID, SELFPAY | PROVIDERS: PCP Nurse Practitioner Family; Visit Provider Nurse Practitioner Family | DX: D72.829 Elevated white blood cell count, unspecified (principal) | CPT/HCPCS: 85025 ==

== ENCOUNTER → 2023-08-31 13:12 | Outpatient (BNVA) | payer MEDICAID, SELFPAY | PROVIDERS: PCP Nurse Practitioner Family; Visit Provider Nurse Practitioner Family | DX: E66.9 Obesity, unspecified (principal) | CPT/HCPCS: 80053; 80061; 84443; 85025 ==

== ENCOUNTER → 2023-09-01 10:46 | Outpatient (BNVA) | payer MEDICAID, SELFPAY | PROVIDERS: PCP Nurse Practitioner Family; Visit Provider Nurse Practitioner Family | DX: E03.9 Hypothyroidism, unspecified (principal) | CPT/HCPCS: 81003; 81025; 87077; 87086; 87184 ==

== ENCOUNTER 2023-10-02 14:47 | Emergency (ER) | payer MEDICAID, SELFPAY ==
[2023-10-02 15:04] VITALS: BP 115/73; PULSE 110; RESP 16; TEMP 36.4; O2SAT 100; BMI 34.3
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
[2023-10-02 15:21] VITALS: PULSE 102; RESP 16; O2SAT 100
== END 2023-10-02 15:26 | disposition home or self-care (01) ==
PROVIDERS: Emergency Provider Emergency Medicine; PCP Nurse Practitioner Family
DX: S09.8XXA Other specified injuries of head, initial encounter (principal); W03.XXXA Other fall on same level due to collision with another person, initial encounter
CPT/HCPCS: 99281

== ENCOUNTER 2023-10-25 09:52 | Emergency (ER) | payer MEDICAID, SELFPAY ==
--- NOTE | 2023-10-25 09:57 | XR_ITS ---
WS: [id number] Examination: XR KUB 27520 Reason for Exam: fb Date: 10/25/2023 Comparison: 07/01/2023 Findings: There is a large stool burden. There is no abnormal gaseous distended loops of small bowel. The psoas margins are well seen. No radiopaque foreign body is appreciated. XR/XR KUB [id number] Impression: There is a large stool burden.
--- NOTE | 2023-10-25 10:00 | W.ED.GENADLT ---
HPI - General Adult General: Chief complaint: Abdominal Pain Stated complaint: swallowed a screw Time Seen by Provider: 10/25/23 09:56 Source: patient Mode of arrival: ambulatory Limitations: no limitations History of Present Illness: 38-year-old female is well-known to the ER she has been seen here multiple times in the last few years for swallowed foreign bodies. Patient states she had swallowed a screw last night she has no other complaints this time no vomiting no diarrhea denies any pain Associated symptoms: Deny chest pain, dyspnea, headache(s), nausea, rash or vomiting Related Data Home Medications Medication Instructions Recorded Confirmed latanoprost 0.005 % eye drops 1 drp ophthalmic (eye) QPM 03/17/22 10/17/23 acetaminophen 325 mg tablet 325 mg PO PRN PRN Pain 06/07/23 10/17/23 Previous Rx's Medication Instructions Recorded haloperidol 5 mg tablet 5 mg PO DAILY PRN severe agitation 12/08/22 #30 tabs medroxyprogesterone 150 mg/mL See Rx Instructions .Route 02/28/23 intramuscular suspension .COMPLEX #1 mL ketoconazole 2 % topical cream 1 applic topical BID feet 14 days 03/29/23 #60 grams [employer] balance brace #1 ea 04/17/23 dextromethorphan-guaifenesin 10 10 ml PO Q6H PRN Cough #200 mL 05/09/23 mg-100 mg/5 mL oral liquid (Safe Tussin DM) magnesium hydroxide 400 mg/5 mL 60 ml PO DAILY PRN constipation 05/15/23 oral suspension (Milk of Magnesia) #355 mL bisacodyl 5 mg tablet,delayed 5 mg PO ONCE 1 day #4 tabs 05/22/23 release (Dulcolax (bisacodyl)) magnesium citrate 296 ml PO BID 1 day #592 mL 05/22/23 docusate sodium 100 mg capsule See Rx Instructions .Route 06/16/23 .COMPLEX #360 caps polyethylene glycol 3350 17 See Rx Instructions .Route 07/19/23 gram/dose oral powder .COMPLEX #510 grams divalproex 500 mg tablet,extended 500 mg PO BID #60 tabs 07/28/23 release 24 hr fluvoxamine 50 mg tablet 50 mg PO BID #60 tabs 07/28/23 quetiapine 100 mg tablet 300 mg (3 x 100 mg) PO .HS #90 tabs 07/28/23 Dressing Changes #1 ea 07/31/23 walker #1 ea 07/31/23 sterile saline #1 ea 08/08/23 use sterile saline to wet 4x4 #1 ea 08/08/23 prior to packing wound 3 x a day mupirocin 2 % topical ointment 1 applic topical BID 10 days #22 08/11/23 grams meloxicam 15 mg tablet 15 mg PO DAILY PRN pain #30 tabs 09/01/23 fluvoxamine 100 mg tablet 100 mg PO BID #60 tabs 09/19/23 levothyroxine 125 mcg tablet See Rx Instructions .Route 10/13/23 .COMPLEX #90 tabs pantoprazole 40 mg tablet,delayed See Rx Instructions .Route 10/13/23 release .COMPLEX #30 tabs clonazepam 0.5 mg tablet 0.5 mg PO TID #90 tabs 10/24/23 Allergies Allergy/AdvReac Type Severity Reaction Status Date / Time adhesive Allergy ALGY-Rash Verified 10/17/23 09:39 nitrofurantoin Allergy Unknown Verified 10/17/23 09:39 [From Macrobid] Penicillins Allergy Unknown Verified 10/17/23 09:39 BAND-AIDS Allergy Unknown Uncoded 10/17/23 09:39 TIDE DETERGENT Allergy Unknown Uncoded 10/17/23 09:39 Review of Systems Const: Denies: fever(s), chills, body aches or change in appetite ENMT: Denies: throat pain or dental pain Card: Denies: chest pain Resp: Denies: dyspnea GI: Denies: abdominal pain, nausea, vomiting or diarrhea Musc: Denies: neck pain or back pain Skin/Breast: Denies: rash Neuro: Denies: headache(s) PFSH ED PFSH: Medical History Vitamin D deficiency Depression Seizure disorder Psychiatric care Psychoses Mental disability Constipation Major depressive disorder, recurrent severe without psychotic features Post-traumatic stress disorder, chronic Hypothyroidism Surgical History Hx of bilateral breast reduction surgery H/O esophagogastroduodenoscopy (07/05/20) removal of FB History of cholecystectomy Social History Smoking and tobacco/nicotine status: never used tobacco/nicotine Second hand smoke exposure: No Alcohol intake: never Substance/Drug Use: never Additional social history: Patient states that she grew up in [place]. She is currently living in a correction and is under guardianship. She enjoys playing games and eating hamburgers. She is despondent that there is no place in [place] where she can get a hamburger and does not know how to make one on her own. Caregiver/support person: Yes Lives independently: No Household members: other Details: LIVES IN A [facility] Housing: Assisted Living Facility Marital status: Single Current occupational status: disabled Current gender identity: Female Physical Exam Const: COMMON NORMALS: no acute distress, patient oriented x3 and healthy appearing HENMT: COMMON NORMALS: normocephalic and atraumatic HEAD & SCALP: normocephalic and atraumatic Eye: COMMON NORMALS: Equal, round and reactive pupils present and EOMs intact bilaterally PUPIL: Yes Equal, round and reactive pupils present Neck/C-Spine: COMMON NORMALS: full ROM and supple Chest: COMMONS NORMALS: normal inspection of the chest Resp: COMMON NORMALS: normal respiratory effort Cardio: COMMON NORMALS: regular rate, regular rhythm and No murmurs present (Cardio) RATE: regular rate RHYTHM: regular rhythm GI: COMMON NORMALS: Normal to inspection, nondistended, normoactive bowel sounds present, Soft to palpation, non-tender and no masses PALPATION: Yes Soft to palpation Extremity: COMMON NORMALS: normal to inspection and full ROM Neuro: COMMON NORMALS: patient oriented x3, moves all extremities and no focal motor deficits Psych: COMMON NORMALS: mental status grossly normal, Normal thought process present and cooperative THOUGHT PROCESS: Normal thought process present Skin: COMMON NORMALS: no rashes or lesions noted and no wounds GENERAL SKIN EXAM: no rashes or lesions noted [facility] - General Adult Medical Decision Making Patient presents with a supposed swallowed foreign body she has no signs of foreign body on her x-ray. Patient further states she is suicidal she now denies she has been seen here for this multiple times she does not require inpatient admission I do not believe she is a threat to herself she stable for discharge back with her caregiver Lab Data Radiology Impressions KUB X-Ray 10/25/23 09:57 Impression: There is a large stool burden. Chest X-Ray 10/25/23 10:13 Impression: No acute lung process is seen. All radiology interpretation(s) finalized by discharge Discharge Plan Discharge Patient Disposition: Home Clinical Impression: Foreign body, swallowed Prescriptions: No Action ketoconazole 2 % cream 1 applic topical BID 14 Days Qty: 60 0RF (DME) Dressing Changes See Rx Instructions .Route .MEDSUPPLY Qty: 1 0RF Rx Instructions: Change dressing TID. Pack wound with dry, unfolded 4x4 gauze, cover with ABD pad, secure with paper tape. (DME) walker See Rx Instructions .Route .MEDSUPPLY Qty: 1 0RF Rx Instructions: As directed latanoprost 0.005 % drops 1 drp ophthalmic (eye) QPM haloperidol 5 mg tablet 5 mg PO DAILY PRN (Reason: severe agitation) Qty: 30 0RF (DME) almeida balance brace See Rx Instructions .Route .MEDSUPPLY Qty: 1 0RF Rx Instructions: As directed, right lower extremity made by the shoe brandon magnesium hydroxide [Milk of Magnesia] 400 mg/5 mL suspension 60 ml PO DAILY PRN (Reason: constipation) Qty: 355 3RF magnesium citrate Solution 296 ml PO BID 1 Days Qty: 592 0RF Rx Instructions: take 296ml at 12:00PM and then take 296Ml at 08:00PM for colonoscopy bisacodyl [Dulcolax (bisacodyl)] 5 mg tablet,delayed release (DR/EC) 5 mg PO ONCE 1 Days Qty: 4 0RF Rx Instructions: Take all 4 tablets at 2:00pm with an 8oz. glass of water for colonoscopy mupirocin 2 % ointment 1 applic topical BID 10 Days Qty: 22 0RF Rx Instructions: apply to blister on right foot twice a day for 10 days or until sore has healed meloxicam 15 mg tablet 15 mg PO DAILY PRN (Reason: pain) Qty: 30 2RF Rx Instructions: no ibuprofen on day of meloxicam use medroxyprogesterone 150 mg/mL suspension See Rx Instructions .ROUTE .COMPLEX Qty: 1 3RF Dose Instruction: INJECT 1mL INTRAMUSCULARLY ONCE every THREE MONTHS Rx Instructions: INJECT 1mL INTRAMUSCULARLY ONCE every THREE MONTHS Safe Tussin DM 10-100 mg/5 mL liquid 10 ml PO Q6H PRN (Reason: Cough) Qty: 200 3RF docusate sodium 100 mg capsule See Rx Instructions .ROUTE .COMPLEX Qty: 360 3RF Dose Instruction: TAKE ONE CAPSULE BY MOUTH TWICE DAILY Rx Instructions: TAKE ONE CAPSULE BY MOUTH TWICE DAILY polyethylene glycol 3350 17 gram/dose powder See Rx Instructions .ROUTE .COMPLEX Qty: 510 3RF Dose Instruction: FILL CAP TO LINE (17 GRAMS), MIX IN 8 OUNCES OF LIQUID AND DRINK BY MOUTH ONCE DAILY Rx Instructions: FILL CAP TO LINE (17 GRAMS), MIX IN 8 OUNCES OF LIQUID AND DRINK BY MOUTH ONCE DAILY divalproex 500 mg tablet extended release 24 hr 500 mg PO BID Qty: 60 2RF Rx Instructions: TAKE ONE TABLET BY MOUTH TWICE DAILY quetiapine 100 mg tablet 300 mg PO .HS Qty: 90 2RF Rx Instructions: TAKE THREE TABLETS BY MOUTH At Bedtime fluvoxamine 50 mg tablet 50 mg PO BID Qty: 60 2RF Rx Instructions: Take with Fluvoxamine 100mg BID (DME) use sterile saline to wet 4x4 prior to packing wound 3 x a day See Rx Instructions .Route .MEDSUPPLY Qty: 1 0RF Rx Instructions: As directed (DME) sterile saline 1 liter See Rx Instructions .Route .MEDSUPPLY Qty: 1 0RF Rx Instructions: As directed fluvoxamine 100 mg tablet 100 mg PO BID Qty: 60 2RF Rx Instructions: TAKE ONE TABLET BY MOUTH TWICE DAILY Take with Fluvoxamine 50mg BID pantoprazole 40 mg tablet,delayed release (DR/EC) See Rx Instructions .ROUTE .COMPLEX Qty: 30 2RF Dose Instruction: TAKE 1 TABLET BY MOUTH DAILY Rx Instructions: TAKE 1 TABLET BY MOUTH DAILY levothyroxine 125 mcg tablet See Rx Instructions .ROUTE .COMPLEX Qty: 90 1RF Dose Instruction: TAKE ONE TABLET BY MOUTH EVERY MORNING Rx Instructions: TAKE ONE TABLET BY MOUTH EVERY MORNING clonazepam 0.5 mg tablet 0.5 mg PO TID Qty: 90 2RF acetaminophen 325 mg tablet 325 mg PO PRN PRN (Reason: Pain) Rx Instructions: TAKE TWO TABLETS BY MOUTH EVERY 6 HOURS NEEDED FOR FEVER of 100.4 OR greater and/or pain. not TO exceed 4,000mg in 24 hours. Discharge Orders: Discharge ED (Routine); Ordered 10/25/23 Ordered By: Omar Alicea Referrals: Ольга Quarles FNP [Primary Care Provider] - Discharge Diet: Advance as tolerated Discharge Activity: Resume usual activity Patient Instructions: Foreign Body - Swallowed Coding Level of Care Code ED Manager [employer] for Lasha Turner
--- NOTE | 2023-10-25 10:13 | XR_ITS ---
WS: [id number] Examination: XR chest 1V portable [id number] Reason for Exam: fb Date: 10/25/2023 Comparison: 05/09/2023 Findings: The heart is normal in size. The mediastinum not widened. There is no edema or effusion. There is no consolidation XR/XR chest 1V portable [id number] Impression: No acute lung process is seen.
[2023-10-25 11:05] VITALS: BP 100/68; PULSE 83; RESP 16; O2SAT 97
== END 2023-10-25 11:06 | disposition home or self-care (01) ==
PROVIDERS: Emergency Provider Emergency Medicine; PCP Nurse Practitioner Family
DX: T18.9XXA Foreign body of alimentary tract, part unspecified, initial encounter (principal); W44.D9XA Other magnetic metal objects entering into or through a natural orifice, initial encounter
CPT/HCPCS: 71045; 74018; 99284

== ENCOUNTER 2023-11-02 15:29 | Emergency (ER) | payer MEDICAID, SELFPAY ==
--- NOTE | 2023-11-02 15:30 | XRR_ITS ---
PROCEDURE INFORMATION: Exam: XR Abdomen Exam date and time: 11/02/2023 4:06 PM Age: 38 years old Clinical indication: Screening exam; Other: Foreign body; Patient HX: Swallowed a battery; Additional info: Fb TECHNIQUE: Imaging protocol: Radiologic exam of the abdomen. Views: Frontal supine view of the abdomen. 1 View. COMPARISON: CR XR KUB [id number] 10/25/2023 10:03 AM FINDINGS: Gastrointestinal tract: There is an approximately 5.5 cm cylindrical ingested foreign body in the region of the gastric antrum. Nonobstructive bowel gas pattern. No gross evidence of free air or pneumatosis. Large stool burden. Bones/joints: No evidence of acute osseous abnormality. XR/XR KUB [id number] IMPRESSION: 1. Ingested foreign body compatible with battery in the region of the gastric antrum. 2. Large stool burden.
--- NOTE | 2023-11-02 15:30 | XRR_ITS ---
PROCEDURE INFORMATION: Exam: XR Chest Exam date and time: 11/02/2023 4:08 PM Age: 38 years old Clinical indication: Device placement; Other: Swallowed a battery; Additional info: Fb TECHNIQUE: Imaging protocol: Radiologic exam of the chest. Views: 1 view. COMPARISON: CR XR chest 1V portable [id number] 10/25/2023 10:18 AM FINDINGS: Lungs: No focal consolidation. Pleural spaces: No evidence of pneumothorax. No evidence of pleural effusion. Heart/Mediastinum: Cardiomediastinal silhouette is within normal limits. Bones/joints: No evidence of acute osseous abnormality. Other: Ingested foreign body compatible with battery in the region of the gastric antrum. XR/XR chest 1V portable [id number] IMPRESSION: 1. Ingested foreign body compatible with battery in the region of the gastric antrum.
[2023-11-02 15:36] VITALS: BP 136/86; PULSE 116; RESP 16; TEMP 36.5; O2SAT 98
--- NOTE | 2023-11-02 16:03 | W.ED.GENADLT ---
HPI - General Adult General: Chief complaint: Airway/Esophagus Foreign Body Stated complaint: swallowed a battery Time Seen by Provider: 11/02/23 16:01 Source: patient Mode of arrival: ambulatory Limitations: no limitations History of Present Illness: 38-year-old female is very well-known to the ER has had a history of swallowing multiple objects in the past states she got a battery out of her remote today and swallowed it a few hours ago. She has no other complaints denies any pain Associated symptoms: Deny chest pain, dyspnea, headache(s), nausea, rash or vomiting Related Data Home Medications Medication Instructions Recorded Confirmed latanoprost 0.005 % eye drops 1 drp ophthalmic (eye) QPM 03/17/22 10/25/23 acetaminophen 325 mg tablet 325 mg PO PRN PRN Pain 06/07/23 10/25/23 docusate sodium 100 mg capsule 100 mg PO BID 10/25/23 10/25/23 fluvoxamine 100 mg tablet See Rx Instructions .Route .COMPLEX 10/25/23 10/25/23 fluvoxamine 50 mg tablet See Rx Instructions .Route .COMPLEX 10/25/23 10/25/23 levothyroxine 125 mcg tablet 125 mcg PO QAM 10/25/23 10/25/23 pantoprazole 40 mg tablet,delayed 40 mg PO DAILY 10/25/23 10/25/23 release quetiapine 100 mg tablet 300 mg PO BEDTIME 10/25/23 10/25/23 Previous Rx's Medication Instructions Recorded haloperidol 5 mg tablet 5 mg PO DAILY PRN severe agitation 12/08/22 #30 tabs medroxyprogesterone 150 mg/mL See Rx Instructions .Route 02/28/23 intramuscular suspension .COMPLEX #1 mL [employer]meida balance brace #1 ea 04/17/23 dextromethorphan-guaifenesin 10 10 ml PO Q6H PRN Cough #200 mL 05/09/23 mg-100 mg/5 mL oral liquid (Safe Tussin DM) magnesium hydroxide 400 mg/5 mL 60 ml PO DAILY PRN constipation 05/15/23 oral suspension (Milk of Magnesia) #355 mL polyethylene glycol 3350 17 See Rx Instructions .Route 07/19/23 gram/dose oral powder .COMPLEX #510 grams divalproex 500 mg tablet,extended 500 mg PO BID #60 tabs 07/28/23 release 24 hr Dressing Changes #1 ea 07/31/23 walker #1 ea 07/31/23 sterile saline #1 ea 08/08/23 use sterile saline to wet 4x4 #1 08/08/23 prior to packing wound 3 x a day meloxicam 15 mg tablet 15 mg PO DAILY PRN pain #30 tabs 09/01/23 clonazepam 0.5 mg tablet 0.5 mg PO TID #90 tabs 10/24/23 Allergies Allergy/AdvReac Type Severity Reaction Status Date / Time adhesive Allergy ALGY-Rash Verified 11/02/23 15:40 nitrofurantoin Allergy Unknown Verified 11/02/23 15:40 [From Macrobid] Penicillins Allergy Unknown Verified 11/02/23 15:40 BAND-AIDS Allergy Unknown Uncoded 11/02/23 15:40 TIDE DETERGENT Allergy Unknown Uncoded 11/02/23 15:40 Review of Systems Const: Denies: fever(s), chills, body aches or change in appetite ENMT: Denies: throat pain or dental pain Card: Denies: chest pain Resp: Denies: dyspnea GI: Denies: abdominal pain, nausea, vomiting or diarrhea Musc: Denies: neck pain or back pain Skin/Breast: Denies: rash Neuro: Denies: headache(s) PFSH ED PFSH: Medical History Vitamin D deficiency Depression Seizure disorder Psychiatric care Psychoses Mental disability Constipation Major depressive disorder, recurrent severe without psychotic features Post-traumatic stress disorder, chronic Hypothyroidism Surgical History Hx of bilateral breast reduction surgery H/O esophagogastroduodenoscopy (07/05/20) removal of FB History of cholecystectomy Social History Smoking and tobacco/nicotine status: never used tobacco/nicotine Second hand smoke exposure: No Alcohol intake: never Substance/Drug Use: never Additional social history: Patient states that she grew up in [place]. She is currently living in a prison and is under guardianship. She enjoys playing games and eating hamburgers. She is despondent that there is no place in [place] where she can get a hamburger and does not know how to make one on her own. Caregiver/support person: Yes Lives independently: No Household members: other Details: LIVES IN A [facility] Housing: Assisted Living Facility Marital status: Single Current occupational status: disabled Current gender identity: Female Physical Exam Const: COMMON NORMALS: no acute distress, patient oriented x3 and healthy appearing HENMT: COMMON NORMALS: normocephalic and atraumatic HEAD & SCALP: normocephalic and atraumatic Neck/C-Spine: COMMON NORMALS: full ROM and supple Chest: COMMONS NORMALS: normal inspection of the chest Resp: COMMON NORMALS: normal respiratory effort Cardio: COMMON NORMALS: regular rate, regular rhythm and No murmurs present (Cardio) RATE: regular rate RHYTHM: regular rhythm Extremity: COMMON NORMALS: normal to inspection and full ROM Neuro: COMMON NORMALS: patient oriented x3, moves all extremities and no focal motor deficits Psych: COMMON NORMALS: mental status grossly normal, Normal thought process present and cooperative THOUGHT PROCESS: Normal thought process present Skin: COMMON NORMALS: no rashes or lesions noted and no wounds GENERAL SKIN EXAM: no rashes or lesions noted Course Vital Signs: Vital signs: Vital Signs Temperature 97.7 F 11/02/23 15:36 Pulse Rate 116 H 11/02/23 15:36 Respiratory Rate 16 11/02/23 15:36 Blood Pressure 136/86 11/02/23 15:36 Pulse Oximetry 98 11/02/23 15:36 Oxygen Delivery Me thod Room Air 11/02/23 15:36 MDM - General Adult Medical Decision Making Patient presents for swallowed foreign body a battery she is in no pain she stable for discharge likely should pass she needs a repeat x-ray in 2 days return if she has worsening pain they understand agree to plan XR interpretation done by ED provider, pending radiology final review ED provider radiology interpretation(s): X-ray KUB battery noted in intestine Discharge Plan Discharge Patient Disposition: Home Clinical Impression: Swallowed foreign body Condition: Stable Prescriptions: No Action (DME) Dressing Changes See Rx Instructions .Route .MEDSUPPLY Qty: 1 0RF Rx Instructions: Change dressing TID. Pack wound with dry, unfolded 4x4 gauze, cover with ABD pad, secure with paper tape. (DME) walker See Rx Instructions .Route .MEDSUPPLY Qty: 1 0RF Rx Instructions: As directed gurvinderprost 0.005 % drops 1 drp ophthalmic (eye) QPM haloperidol 5 mg tablet 5 mg PO DAILY PRN (Reason: severe agitation) Qty: 30 0RF (DME) almeida balance brace See Rx Instructions .Route .MEDSUPPLY Qty: 1 0RF Rx Instructions: As directed, right lower extremity made by the shoe [employer] magnesium hydroxide [Milk of Magnesia] 400 mg/5 mL suspension 60 ml PO DAILY PRN (Reason: constipation) Qty: 355 3RF meloxicam 15 mg tablet 15 mg PO DAILY PRN (Reason: pain) Qty: 30 2RF Rx Instructions: no ibuprofen on day of meloxicam use medroxyprogesterone 150 mg/mL suspension See Rx Instructions .ROUTE .COMPLEX Qty: 1 3RF Dose Instruction: INJECT 1mL INTRAMUSCULARLY ONCE every THREE MONTHS Rx Instructions: INJECT 1mL INTRAMUSCULARLY ONCE every THREE MONTHS Safe Tussin DM 10-100 mg/5 mL liquid 10 ml PO Q6H PRN (Reason: Cough) Qty: 200 3RF polyethylene glycol 3350 17 gram/dose powder See Rx Instructions .ROUTE .COMPLEX Qty: 510 3RF Dose Instruction: FILL CAP TO LINE (17 GRAMS), MIX IN 8 OUNCES OF LIQUID AND DRINK BY MOUTH ONCE DAILY Rx Instructions: FILL CAP TO LINE (17 GRAMS), MIX IN 8 OUNCES OF LIQUID AND DRINK BY MOUTH ONCE DAILY divalproex 500 mg tablet extended release 24 hr 500 mg PO BID Qty: 60 2RF (DME) use sterile saline to wet 4x4 prior to packing wound 3 x a day See Rx Instructions .Route .MEDSUPPLY Qty: 1 0RF Rx Instructions: As directed (DME) sterile saline 1 liter See Rx Instructions .Route .MEDSUPPLY Qty: 1 0RF Rx Instructions: As directed clonazepam 0.5 mg tablet 0.5 mg PO TID Qty: 90 2RF quetiapine 100 mg tablet 300 mg PO BEDTIME fluvoxamine 100 mg tablet See Rx Instructions .ROUTE .COMPLEX Rx Instructions: TAKE ONE TABLET BY MOUTH TWICE DAILY ALONG WITH 50MG TO= 150MG TOTAL pantoprazole 40 mg tablet,delayed release (DR/EC) 40 mg PO DAILY levothyroxine 125 mcg tablet 125 mcg PO QAM docusate sodium 100 mg capsule 100 mg PO BID fluvoxamine 50 mg tablet See Rx Instructions .ROUTE .COMPLEX Rx Instructions: TAKE 1 TABLET BY MOUTH TWICE DAILY ALONG WITH 100MG TO= 150MG TOTAL acetaminophen 325 mg tablet 325 mg PO PRN PRN (Reason: Pain) Rx Instructions: TAKE TWO TABLETS BY MOUTH EVERY 6 HOURS NEEDED FOR FEVER of 100.4 OR greater and/or pain. not TO exceed 4,000mg in 24 hours. Discharge Orders: Discharge ED (Routine); Ordered 11/02/23 Ordered By: Omar Alicea Referrals: Ольга Quarles FNP [Primary Care Provider] - 4-7 days Discharge Diet: Advance as tolerated Discharge Activity: Resume usual activity Patient Instructions: Foreign Body - Swallowed Activity Restrictions/Additional Instructions: repeat xr in 2 days return if worsening pain Coding Level of Care Code ED [employer] for Lasha Turner
[2023-11-02] MEDS: lactulose oral liq 20 gm/30 mL UDC 30 GM PO (16:52)
[2023-11-02 16:57] VITALS: BP 119/75; PULSE 94; RESP 18; O2SAT 99
[2023-11-02 17:00] VITALS: BP 119/75; PULSE 89; O2SAT 98
== END 2023-11-02 17:02 | disposition home or self-care (01) ==
PROVIDERS: Emergency Provider Emergency Medicine; PCP Nurse Practitioner Family
DX: T18.2XXA Foreign body in stomach, initial encounter (principal); W44.A9XA Other batteries entering into or through a natural orifice, initial encounter
CPT/HCPCS: 71045; 74018; 99284

== ENCOUNTER 2023-11-04 11:08 | Outpatient (CLI) | payer MEDICAID, SELFPAY ==
--- NOTE | 2023-11-04 11:26 | XRR_ITS ---
PROCEDURE INFORMATION: Exam: XR Abdomen Exam date and time: 11/04/2023 11:27 AM Age: 38 years old Clinical indication: Screening exam; Patient HX: Eval location of foreign body; PT swallowed aa battery x 3 days ago TECHNIQUE: Imaging protocol: Radiologic exam of the abdomen. Views: Frontal supine view of the abdomen. 1 View. COMPARISON: CR XR KUB [id number] 11/02/2023 4:06 PM FINDINGS: Gastrointestinal tract: No dilated loops of large or small bowel is appreciated. There is a moderate amount of stool within the colon. Cylindrical foreign body is noted on the right likely within the ascending colon. Bones/joints: Unremarkable. XR/XR KUB [id number] IMPRESSION: 1. Fecal stasis. 2. Foreign body likely within the ascending colon.
== END 2023-11-04 11:09 | disposition home or self-care (01) ==
PROVIDERS: PCP Nurse Practitioner Family; Visit Provider Registered Nurse Neonatal Intensive Care
DX: T18.9XXA Foreign body of alimentary tract, part unspecified, initial encounter (principal); W44.8XXA Other foreign body entering into or through a natural orifice, initial encounter; K56.41 Fecal impaction
CPT/HCPCS: 74018

== ENCOUNTER 2023-11-09 11:36 | Outpatient (CLI) | payer MEDICAID, SELFPAY ==
--- NOTE | 2023-11-09 11:38 | XRR_ITS ---
PROCEDURE INFORMATION: Exam: XR Abdomen Exam date and time: 11/09/2023 12:04 PM Age: 38 years old Clinical indication: Prior surgery; Surgery date: 6+ months; Surgery type: Open foreign body removal of abdomen; Patient HX: Eval for location of foreign body, swallowed aa battery x8 days prior; Additional info: T18.9xxa - foreign body of alimentary tract, part unspeci. . . TECHNIQUE: Imaging protocol: Radiologic exam of the abdomen. Views: Frontal supine view of the abdomen. 1 View. COMPARISON: CR XR KUB [id number] 11/04/2023 11:27 AM FINDINGS: Gastrointestinal tract: A cylindrical battery, probably a AA battery, projects over the left iliac crest most likely within the sigmoid colon. Nonspecific bowel gas pattern. Bones/joints: Unremarkable. XR/XR KUB [id number] IMPRESSION: The battery is in the left lower quadrant, probably within the sigmoid colon.
== END 2023-11-09 11:37 | disposition home or self-care (01) ==
LOC: RAD 11:37
PROVIDERS: PCP Nurse Practitioner Family; Visit Provider Nurse Practitioner Family
DX: T18.9XXA Foreign body of alimentary tract, part unspecified, initial encounter (principal); X58.XXXD Exposure to other specified factors, subsequent encounter
CPT/HCPCS: 74018

== ENCOUNTER → 2023-11-27 13:54 | Outpatient (BNVA) | payer MEDICAID, SELFPAY | PROVIDERS: PCP Nurse Practitioner Family; Visit Provider Nurse Practitioner Family | DX: R39.9 Unspecified symptoms and signs involving the genitourinary system (principal) | CPT/HCPCS: 81000; 87086 ==

== ENCOUNTER → 2023-12-05 10:42 | Outpatient (BNVA) | payer MEDICAID, SELFPAY | PROVIDERS: PCP Nurse Practitioner Family; Referring Provider Nurse Practitioner Family; Visit Provider Psychiatry & Neurology Neurology | DX: R00.0 Tachycardia, unspecified; G40.A19 Absence epileptic syndrome, intractable, without status epilepticus | CPT/HCPCS: 36415; 82306; 82607; 82746; 83735; 99203; 99204 ==

== ENCOUNTER → 2023-12-11 15:59 | Outpatient (BNVA) | payer MEDICAID, SELFPAY | PROVIDERS: PCP Nurse Practitioner Family; Visit Provider Nurse Practitioner Family | DX: G40.909 Epilepsy, unspecified, not intractable, without status epilepticus (principal) | CPT/HCPCS: 80164 ==

== ENCOUNTER 2024-01-10 07:52 | Outpatient (CLI) | payer MEDICAID, SELFPAY ==
--- NOTE | 2024-01-10 08:00 | CT_ITS ---
WS: [id number] CT HEAD TECHNIQUE: Noncontrast CT of the head obtained from the skullbase to the vertex. CLINICAL INFORMATION: G40.909 - Epilepsy, unspecified, not intractable, without... COMPARISON: 06/03/2022 DLP: 1111.[address] scans at [facility] use at least one of these dose optimization techniques: automated e xposure control; mA and/or kV adjustment per patient size (includes targeted exams where dose is matc hed to clinical indication); or iterative reconstruction. FINDINGS: No evidence of intracranial hemorrhage or mass effect. Ventricular system and basal cisterns are john nt. No extra-axial fluid collections. No evidence of mass or mass effect. Normal ramey-white differen tiation. Paranasal sinuses and mastoid air cells are well aerated. .Normal visualized soft tissues. CT/CT head wo con* [id number] IMPRESSION: 1. No evidence of intracranial hemorrhage or mass effect. 2. No significant change since 06/03/2022 3. No acute intracranial findings.
== END 2024-01-10 07:53 | disposition home or self-care (01) ==
PROVIDERS: PCP Nurse Practitioner Family; Visit Provider Psychiatry & Neurology Neurology
DX: G40.909 Epilepsy, unspecified, not intractable, without status epilepticus (principal); R00.0 Tachycardia, unspecified
CPT/HCPCS: 70450

== ENCOUNTER → 2024-01-30 14:31 | Outpatient (BNVA) | payer MEDICAID, SELFPAY | PROVIDERS: PCP Nurse Practitioner Family; Referring Provider Psychiatry & Neurology Neurology; Visit Provider Psychiatry & Neurology Neurology | DX: G40.909 Epilepsy, unspecified, not intractable, without status epilepticus (principal); G40.A19 Absence epileptic syndrome, intractable, without status epilepticus; F70 Mild intellectual disabilities | CPT/HCPCS: 95819 ==

== ENCOUNTER 2024-02-05 05:08 | Emergency (ER) | payer MEDICAID, SELFPAY ==
[2024-02-05 05:14] VITALS: BP 134/80; PULSE 87; RESP 16; TEMP 36.5; O2SAT 94; BMI 38.7
[2024-02-05 05:34] VITALS: BP 134/80; PULSE 89; RESP 14; O2SAT 99
--- NOTE | 2024-02-05 05:34 | ED_ITS ---
HPI - Wound/Laceration General: Chief Complaint: Wound/Laceration Stated Complaint: fall back head lac, has stopped bleeding Time Seen by Provider: 02/05/24 05:28 History of Present Illness: 39-year-old female with a history of dev elopment delay. She got out of bed this morning and fell, striking her head on the door in her room. She was not knocked out. She has a mild headache. She has a small laceration with controlled bleeding. Related Data Home Medications Medication Instructions Recorded Confirmed latanoprost 0.005 % eye drops 1 drp ophthalmic (eye) QPM 03/17/22 01/30/24 acetaminophen 325 mg tablet 325 mg PO PRN PRN Pain 06/07/23 01/30/24 docusate sodium 100 mg capsule 100 mg PO BID 10/25/23 01/30/24 levothyroxine 125 mcg tablet 125 mcg PO QAM 10/25/23 01/30/24 quetiapine 100 mg tablet 300 mg PO BEDTIME 10/25/23 01/30/24 Previous Rx's Medication Instructions Recorded haloperidol 5 mg tablet 5 mg PO DAILY PRN severe agitation 12/08/22 #30 tabs medroxyprogesterone 150 mg/mL See Rx Instructions .Route 02/28/23 intramuscular suspension .COMPLEX #1 mL almeida balance brace #1 ea 04/17/23 dextromethorphan-guaifenesin 10 10 ml PO Q6H PRN Cough #200 mL 05/09/23 mg-100 mg/5 mL oral liquid (Safe Tussin DM) magnesium hydroxide 400 mg/5 mL 60 ml PO DAILY PRN constipation 05/15/23 oral suspension (Milk of Magnesia) #355 mL meloxicam 15 mg tablet 15 mg PO DAILY PRN pain #30 tabs 09/01/23 clonazepam 0.5 mg tablet 0.5 mg PO TID #90 tabs 10/24/23 fluticasone propionate 50 2 spray intranasal DAILY PRN nasal 11/09/23 mcg/actuation nasal congestion/allergy symptoms #16 spray,suspension (Flonase Allergy grams Relief) fluvoxamine 50 mg tablet See Rx Instructions .Route 12/08/23 .COMPLEX #30 tabs divalproex 500 mg tablet,extended 500 mg PO BID #60 tabs 01/05/24 release 24 hr fluvoxamine 100 mg tablet See Rx Instructions .Route 01/05/24 .COMPLEX #30 tabs pantoprazole 40 mg tablet,delayed See Rx Instructions .Route 01/08/24 release .COMPLEX #30 tabs polyethylene glycol 3350 17 See Rx Instructions .Route 01/12/24 gram/dose oral powder .COMPLEX #510 grams Allergies Allergy/AdvReac Type Severity Reaction Status Date / Time adhesive Allergy ALGY-Rash Verified 01/30/24 15:47 nitrofurantoin Allergy Unknown Verified 01/30/24 15:47 [From Macrobid] Penicillins Allergy Unknown Verified 01/30/24 15:47 TIDE DETERGENT Allergy Unknown Uncoded 01/30/24 15:47 PFSH ED PFSH: Medical History Vitamin D deficiency Depression Seizure disorder Psychiatric care Psychoses Mental disability Constipation Major depressive disorder, recurrent severe without psychotic features Post-traumatic stress disorder, chronic Hypothyroidism Surgical History Hx of bilateral breast reduction surgery H/O esophagogastroduodenoscopy (07/05/20) removal of FB History of cholecystectomy Social History Smoking and tobacco/nicotine status: never used tobacco/nicotine Second hand smoke exposure: No Alcohol intake: never Substance/Drug Use: never Additional social history: Patient states that she grew up in [place]. She is currently living in a skilled nursing and is under guardianship. She enjoys playing games and eating hamburgers. She is despondent that there is no place in [place] where she can get a hamburger and does not know how to make one on her own. 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 Housing: Assisted Living Facility Marital status: Single Current occupational status: disabled Current gender identity: Female Physical Exam Const: COMMON NORMALS: no acute distress GENERAL APPEARANCE: cooperative; not ill appearing and not frail appearing HENMT: COMMON NORMALS: normocephalic and Normal external nose present HEAD & SCALP: normocephalic and laceration (1cm right parietal laceration) FACE & SINUS: normal facial exam and face symmetric NOSE: Normal external nose present Eye: COMMON NORMALS: Equal, round and reactive pupils present and EOMs intact bilaterally PUPIL: Yes Equal, round and reactive pupils present Neck/C-Spine: GENERAL: Yes trachea midline Chest: CHEST: Yes Symmetrical chest wall rise Resp: COMMON NORMALS: normal respiratory effort, No retractions, No use of accessory muscles and clear to auscultation bilaterally AUSCULTATION: clear to auscultation bilaterally Cardio: COMMON NORMALS: regular rate and regular rhythm RATE: regular rate RHYTHM: regular rhythm GI: COMMON NORMALS: Normal to inspection, nondistended, normoactive bowel sounds present Extremity: COMMON NORMALS: no pedal edema Neuro: CODIE COMA SCALE: document GCS findings [place] coma scale eye opening: Spontaneous [place] coma scale verbal response: Orientated Codie coma scale motor response: Obey commands Codie coma scale total score: 15 SENSORY EXAM: Yes extremities (intact) Psych: COMMON NORMALS: speech normal SPEECH: Yes normal speech Skin: COMMON NORMALS: no rashes or lesions noted GENERAL SKIN EXAM: no rashes or lesions noted Procedures Laceration Laceration 1: Site: scalp Side (If applicable): right Size (cm): 1 Description: linear Depth: simple, single layer Pre-repair: wound explored and irrigated extensively Skin layer closed with: other (dermabond) Course Vital Signs: Vital signs: Vital Signs Temperature 97.7 F 02/05/24 05:14 Pulse Rate 88 02/05/24 06:53 Respiratory Rate 14 02/05/24 05:34 Blood Pressure 123/84 02/05/24 06:53 Pulse Oximetry 96 02/05/24 06:53 Oxygen Delivery Me thod Room Air 02/05/24 05:34 MDM - Wound/Laceration Medical Decision Making No signs of concussion or other closed head injury. Lac repaired with dermabond. DC. Return for any problems. No radiology studies performed this visit Discharge Plan Discharge Patient Disposition: Home Clinical Impression: Laceration of scalp Condition: Stable Prescriptions: No Action latanoprost 0.005 % drops 1 drp ophthalmic (eye) QPM haloperidol 5 mg tablet 5 mg PO DAILY PRN (Reason: severe agitation) Qty: 30 0RF (DME) almeida balance brace See Rx Instructions .Route .MEDSUPPLY Qty: 1 0RF Rx Instructions: As directed, right lower extremity made by the shoe brandon magnesium hydroxide [Milk of Magnesia] 400 mg/5 mL suspension 60 ml PO DAILY PRN (Reason: constipation) Qty: 355 3RF meloxicam 15 mg tablet 15 mg PO DAILY PRN (Reason: pain) Qty: 30 2RF Rx Instructions: no ibuprofen on day of meloxicam use fluticasone propionate [Flonase Allergy Relief] 50 mcg/actuation spray,suspension 2 spray intranasal DAILY PRN (Reason: nasal congestion/allergy symptoms) Qty: 16 0RF Rx Instructions: administer into each nostril medroxyprogesterone 150 mg/mL suspension See Rx Instructions .ROUTE .COMPLEX Qty: 1 3RF Dose Instruction: INJECT 1mL INTRAMUSCULARLY ONCE every THREE MONTHS Rx Instructions: INJECT 1mL INTRAMUSCULARLY ONCE every THREE MONTHS Safe Tussin DM 10-100 mg/5 mL liquid 10 ml PO Q6H PRN (Reason: Cough) Qty: 200 3RF clonazepam 0.5 mg tablet 0.5 mg PO TID Qty: 90 2RF fluvoxamine 50 mg tablet See Rx Instructions .ROUTE .COMPLEX Qty: 30 2RF Rx Instructions: TAKE 1 TABLET BY MOUTH TWICE DAILY ALONG WITH 100MG TO= 150MG TOTAL fluvoxamine 100 mg tablet See Rx Instructions .ROUTE .COMPLEX Qty: 30 2RF Rx Instructions: TAKE ONE TABLET BY MOUTH TWICE DAILY ALONG WITH 50MG TO= 150MG TOTAL divalproex 500 mg tablet extended release 24 hr 500 mg PO BID Qty: 60 2RF pantoprazole 40 mg tablet,delayed release (DR/EC) See Rx Instructions .ROUTE .COMPLEX Qty: 30 2RF Dose Instruction: TAKE 1 TABLET BY MOUTH DAILY Rx Instructions: TAKE 1 TABLET BY MOUTH DAILY polyethylene glycol 3350 17 gram/dose powder See Rx Instructions .ROUTE .COMPLEX Qty: 510 3RF Dose Instruction: FILL CAP TO LINE (17 GRAMS), MIX IN 8 OUNCES OF LIQUID AND DRINK BY MOUTH ONCE DAILY Rx Instructions: FILL CAP TO LINE (17 GRAMS), MIX IN 8 OUNCES OF LIQUID AND DRINK BY MOUTH ONCE DAILY quetiapine 100 mg tablet 300 mg PO BEDTIME levothyroxine 125 mcg tablet 125 mcg PO QAM docusate sodium 100 mg capsule 100 mg PO BID acetaminophen 325 mg tablet 325 mg PO PRN PRN (Reason: Pain) Rx Instructions: TAKE TWO TABLETS BY MOUTH EVERY 6 HOURS NEEDED FOR FEVER of 100.4 OR greater and/or pain. not TO exceed 4,000mg in 24 hours. Discharge Orders: Discharge ED (Routine); Ordered 02/05/24 Ordered By: Chele Burns Referrals: Ольга Quarles FNP [Primary Care Provider] - 4-7 days Patient Instructions: Scalp Laceration, Opioid Safety, Pain Management Activity Restrictions/Additional Instructions: Wash with soap and running water. Do not soak. Use Tylenol or ibuprofen for discomfort. Return for any problems. Coding Level of Care Code ED Block Operator for Lasha Turner
[2024-02-05] MEDS: ketorolac 10 mg Tablet PO (06:21)
[2024-02-05 06:53] VITALS: BP 123/84; PULSE 88; O2SAT 96
== END 2024-02-05 06:54 | disposition home or self-care (01) ==
PROVIDERS: Emergency Provider Emergency Medicine; PCP Nurse Practitioner Family
DX: S01.01XA Laceration without foreign body of scalp, initial encounter (principal); W19.XXXA Unspecified fall, initial encounter
CPT/HCPCS: 12001; 99283

== ENCOUNTER → 2024-04-15 08:01 | Outpatient (BNVA) | payer MEDICAID, SELFPAY | PROVIDERS: PCP Nurse Practitioner Family; Visit Provider Podiatrist Foot & Ankle Surgery | DX: M76.821 Posterior tibial tendinitis, right leg (principal); M21.41 Flat foot [pes planus] (acquired), right foot; Z91.81 History of falling; R26.9 Unspecified abnormalities of gait and mobility | CPT/HCPCS: 99213 ==

== ENCOUNTER → 2024-04-29 14:33 | Outpatient (BNVA) | payer MEDICAID, SELFPAY | PROVIDERS: PCP Nurse Practitioner Family; Visit Provider Nurse Practitioner Family | DX: R30.0 Dysuria (principal); R10.9 Unspecified abdominal pain; Z98.890 Other specified postprocedural states | CPT/HCPCS: 74018; 81003; 87077; 87086; 87184 ==

== ENCOUNTER → 2024-05-06 12:11 | Outpatient (BNVA) | payer MEDICAID, SELFPAY | PROVIDERS: PCP Nurse Practitioner Family; Visit Provider Nurse Practitioner Family | DX: E03.9 Hypothyroidism, unspecified (principal); E55.9 Vitamin D deficiency, unspecified | CPT/HCPCS: 80053; 80061; 82306; 84443; 85025 ==

== ENCOUNTER 2024-05-07 10:49 | Outpatient (CLI) | payer MEDICAID, SELFPAY ==
--- NOTE | 2024-05-07 11:00 | MM_ITS ---
WS: [email or web address] BILATERAL 3D TOMOSYNTHESIS DIGITAL SCREENING MAMMOGRAPHY WITH CAD CLINICAL INFORMATION: Z12.39 - Encounter for other screening for malignant neop... HISTORY: Screening mammogram. No current complaints. History of breast reduction COMPARISON: 2022 TECHNIQUE: Bilateral CC and MLO views. FINDINGS: Scattered fibroglandular densities bilaterally. No suspicious focal mass, asymmetry, calcifications, or architectural distortion. No evidence of malignancy. Lucent centered calcifications LEFT breast MM/MM scr tomosynthesis [id number] IMPRESSION: DENSITY: There are scattered areas of fibroglandular density. BI-RADS: 2 - Benign. FOLLOW UP: 1 Year Follow-up Recommend return to annual screening mammography.
== END 2024-05-07 10:50 | disposition home or self-care (01) ==
PROVIDERS: PCP Nurse Practitioner Family; Visit Provider Nurse Practitioner Family
DX: Z12.31 Encounter for screening mammogram for malignant neoplasm of breast (principal); R92.323 Mammographic fibroglandular density, bilateral breasts; R92.1 Mammographic calcification found on diagnostic imaging of breast
CPT/HCPCS: 77063; 77067

== ENCOUNTER 2024-05-15 15:16 | Emergency (ER) | payer MEDICAID, SELFPAY ==
--- NOTE | 2024-05-15 15:21 | XR_ITS ---
WS: [email or web address] Exam: XR chest 1V portable [id number] Date/Time of Exam: 05/15/2024 3:38 PM Reason For Exam: fb Comparison 11/02/2023. Lungs are clear and fully expanded. Cardiomediastinal silhouette is unremarkable. Bony structures are intact. A metallic density resembling that of the spring superimposes the gastric air bubble. This could be a foreign body in the stomach. XR/XR chest 1V portable [id number] IMPRESSION: 1. No acute cardiopulmonary process. 2. A metallic density resembling that of a small spring superimposes the gastri c air bubble and could be a foreign body in the stomach.
--- NOTE | 2024-05-15 15:21 | XR_ITS ---
WS: [email or web address] Exam: XR KUB [id number] Date/Time of Exam: 05/15/2024 3:38 PM Reason For Exam: fb Comparison 04/29/2024. No bowel obstruction or free air. A metallic density resembling that of a small spring seen in the upper LEFT quadrant and could be a foreign body in the stomach. Bony structures are intact. No sign of organ enlargement. XR/XR KUB [id number] IMPRESSION: 1. Metallic density seen in the upper LEFT quadrant of the abdomen having the a ppearance of the small spring. This could be a foreign body in the stomach 2. No acute finding.
[2024-05-15 15:23] VITALS: BP 165/143; PULSE 111; RESP 16; TEMP 36.7; O2SAT 98; BMI 36.1
--- NOTE | 2024-05-15 15:40 | ED.C_ITS ---
HPI - Psych General: Chief Complaint: Psychiatric Symptoms Stated Complaint: injested spring/tip of a pen Time Seen by Provider: 05/15/24 15:31 Source: patient Mode of arrival: ambulatory Limitations: no limitations History of Present Illness: 39-year-old female is very went on the E R she has extensive history of swallowing items tends to hurt herself. States that she swallowed a tip of an ink pen along with the metal spring just before arrival. She states that he did this in an attempt to hurt herself she been seen here multiple times for same she has electro disability he lives at a retirement with caregivers Related Data Home Medications ?Medication ?Instructions ?Recorded ?Confirmed latanoprost 0.005 % eye drops 1 drp ophthalmic (eye) Q PM 03/17/22 05/06/24 acetaminophen 325 mg tablet 325 mg PO PRN PRN Pain 05/06/24 docusate sodium 100 mg capsule 100 mg PO BID 10/25/23 05/06/24 quetiapine 100 mg tablet 300 mg PO BEDTIME 10/25/23 0 05/06/24 Previous Rx's ?Medication ?Instructions ?Recorded almeida balance brace #1 ea 04/17/23 dextromethorphan-guaifenesin 10 10 ml PO Q6H PRN Cough #200 mL 05/09/23 mg-100 mg/5 mL oral liquid (Safe Tussin DM) magnesium hydroxide 400 mg/5 mL 60 ml PO DAILY PRN con stipation 05/15/23 oral suspension (Milk of Magnesia) #355 mL meloxicam 15 mg tablet 15 mg PO DAILY PRN pain #30 tabs 09/01/23 fluticasone propionate 50 2 spray intranasal DAILY PRN nasal 11/09/23 mcg/actuation nasal congestion/allergy symptoms #16 spray,suspension (Flonase Allergy grams Relief) medroxyprogesterone 150 mg/mL See Rx Instructions .Rou te 02/14/24 intramuscular suspension .COMPLEX #1 mL divalproex 500 mg tablet,extended 500 mg PO BID #60 ta bs 04/02/24 release 24 hr levothyroxine 125 mcg tablet 125 mcg PO QAM #90 tabs 0 04/05/24 pantoprazole 40 mg tablet,delayed See Rx Instructions .Route 04/05/24 release .COMPLEX #30 tabs polyethylene glycol 3350 17 See Rx Instructions .Route 04/05/24 gram/dose oral powder .COMPLEX #510 grams haloperidol 5 mg tablet 5 mg PO DAILY PRN severe yajaira tation 04/19/24 #30 tabs clonazepam 0.5 mg tablet 0.5 mg PO TID #90 tabs 04/22 fluvoxamine 100 mg tablet See Rx Instructions .Route 0 04/26/24 .COMPLEX #30 tabs fluvoxamine 50 mg tablet See Rx Instructions .Route 0 04/26/24 .COMPLEX #30 tabs Allergies Allergy/AdvReac Type Severity Reaction Status Date / Time adhesive Allergy ALGY-Rash Verified 04/15/24 08:14 nitrofurantoin (From Allergy Unknown Verified 04/15/24 08:14 Macrobid) Penicillins Allergy Unknown Verified 04/15/24 08:14 TIDE DETERGENT Allergy Unknown Uncoded 04/15/24 08:14 Review of Systems Const: Denies: fever(s), chills, body aches or change in appetite Eyes: Denies: blurry vision or eye discomfort ENMT: Denies: throat pain or dental pain Card: Denies: chest pain Resp: Denies: dyspnea GI: Denies: nausea, vomiting or diarrhea : Denies: dysuria Musc: Denies: neck pain or back pain Skin/Breast: Denies: rash Neuro: Denies: headache(s) PFSH ED PFSH: Medical History Vitamin D deficiency Depression Seizure disorder Psychiatric care Psychoses Mental disability Constipation Major depressive disorder, recurrent severe without psychotic features Post-traumatic stress disorder, chronic Hypothyroidism Surgical History Hx of bilateral breast reduction surgery H/O esophagogastroduodenoscopy (07/05/20) removal of FB History of cholecystectomy Social History Smoking and tobacco/nicotine status: never used tobacco/nicotine Second hand smoke exposure: No Alcohol intake: never Substance/Drug Use: never Additional social history: Patient states that she grew up in [place]. She is currently living in a retirement and is under guardianship. She enjoys playing games and eating hamburgers. She is despondent that there is no place in [place] where she can get a hamburger and does not know how to make one on her own. Caregiver/support person: Yes Lives independently: No Household members: other Details: LIVES IN A [facility] Housing: Assisted Living Facility Marital status: Single Current occupational status: disabled Current gender identity: Female Physical Exam Const: COMMON NORMALS: no acute distress, patient oriented x3 and healthy appearing HENMT: COMMON NORMALS: normocephalic and atraumatic HEAD & SCALP: normocephalic and atraumatic Eye: COMMON NORMALS: conjunctivae normal CONJUNCTIVA: Yes conjunctivae normal Neck/C-Spine: COMMON NORMALS: full ROM and supple Chest: COMMONS NORMALS: normal inspection of the chest Resp: COMMON NORMALS: normal respiratory effort Cardio: COMMON NORMALS: regular rate, regular rhythm and No murmurs present (Cardio) RATE: regular rate RHYTHM: regular rhythm GI: COMMON NORMALS: non-tender Extremity: COMMON NORMALS: normal to inspection and full ROM Neuro: COMMON NORMALS: patient oriented x3, moves all extremities and no focal motor deficits Psych: COMMON NORMALS: mental status grossly normal, Normal thought process present and cooperative THOUGHT PROCESS: Normal thought process present Skin: COMMON NORMALS: no rashes or lesions noted and no wounds GENERAL SKIN EXAM: no rashes or lesions noted Course Vital Signs: Vital signs: Vital Signs Temperature 98.0 F 05/15/24 15:23 Pulse Rate 111 H 05/15/24 15:23 Respiratory Rate 16 05/15/24 15:23 Blood Pressure 165/143 05/15/24 15:23 Pulse Oximetry 98 05/15/24 15:23 Oxygen Delivery Me thod Room Air 05/15/24 15:23 [facility] - Psych Medical Decision Making Patient presents here with swallowed foreign body she is well-appearing here did see the spurring on x-ray she should build past this with no difficulty she did not require psych admission at this time follow-up with repeat x-rays return if worsening Medical Records I reviewed the patient's medical records. Lab Data Radiology Impressions Chest X-Ray 05/15/24 15:21 IMPRESSION: 1. No acute cardiopulmonary process. 2. A metallic density resembling that of a small spring superimposes the gastric air bubble and could be a foreign body in the stomach. All radiology interpretation(s) finalized by discharge Discharge Plan Discharge Patient Disposition: Home Clinical Impression: Foreign body, swallowed Condition: Stable Prescriptions: No Action latanoprost 0.005 % drops 1 drp ophthalmic (eye) QPM (DME) almeida balance brace See Rx Instructions .Route .MEDSUPPLY Qty: 1 0RF Rx Instructions: As directed, right lower extremity made by the shoe brandon magnesium hydroxide [Milk of Magnesia] 400 mg/5 mL suspension 60 ml PO DAILY PRN (Reason: constipation) Qty: 355 3RF meloxicam 15 mg tablet 15 mg PO DAILY PRN (Reason: pain) Qty: 30 2RF Rx Instructions: no ibuprofen on day of meloxicam use fluticasone propionate [Flonase Allergy Relief] 50 mcg/actuation spray,suspension 2 spray intranasal DAILY PRN (Reason: nasal congestion/allergy symptoms) Qty: 16 0RF Rx Instructions: administer into each nostril Safe Tussin DM 10-100 mg/5 mL liquid 10 ml PO Q6H PRN (Reason: Cough) Qty: 200 3RF medroxyprogesterone 150 mg/mL suspension See Rx Instructions .ROUTE .COMPLEX Qty: 1 3RF Dose Instruction: INJECT 1mL INTRAMUSCULARLY ONCE every THREE MONTHS Rx Instructions: INJECT 1mL INTRAMUSCULARLY ONCE every THREE MONTHS divalproex 500 mg tablet extended release 24 hr 500 mg PO BID Qty: 60 2RF pantoprazole 40 mg tablet,delayed release (DR/EC) See Rx Instructions .ROUTE .COMPLEX Qty: 30 2RF Dose Instruction: TAKE ONE TABLET BY MOUTH DAILY Rx Instructions: TAKE ONE TABLET BY MOUTH DAILY levothyroxine 125 mcg tablet 125 mcg PO QAM Qty: 90 0RF polyethylene glycol 3350 17 gram/dose powder See Rx Instructions .ROUTE .COMPLEX Qty: 510 3RF Dose Instruction: FILL CAP TO LINE (17 GRAMS), MIX IN 8 OUNCES OF LIQUID AND DRINK BY MOUTH ONCE DAILY Rx Instructions: FILL CAP TO LINE (17 GRAMS), MIX IN 8 OUNCES OF LIQUID AND DRINK BY MOUTH ONCE DAILY haloperidol 5 mg tablet 5 mg PO DAILY PRN (Reason: severe agitation) Qty: 30 0RF clonazepam 0.5 mg tablet 0.5 mg PO TID Qty: 90 2RF fluvoxamine 100 mg tablet See Rx Instructions .ROUTE .COMPLEX Qty: 30 2RF Rx Instructions: TAKE ONE TABLET BY MOUTH TWICE DAILY ALONG WITH 50MG TO= 150MG TOTAL fluvoxamine 50 mg tablet See Rx Instructions .ROUTE .COMPLEX Qty: 30 2RF Rx Instructions: TAKE 1 TABLET BY MOUTH TWICE DAILY ALONG WITH 100MG TO= 150MG TOTAL quetiapine 100 mg tablet 300 mg PO BEDTIME docusate sodium 100 mg capsule 100 mg PO BID acetaminophen 325 mg tablet 325 mg PO PRN PRN (Reason: Pain) Rx Instructions: TAKE TWO TABLETS BY MOUTH EVERY 6 HOURS NEEDED FOR FEVER of 100.4 OR greater and/or pain. not TO exceed 4,000mg in 24 hours. Discharge Orders: Discharge ED (Routine); Ordered 05/15/24 Ordered By: Omar Alicea Referrals: Ольга Quarles FNP [Primary Care Provider] - 4-7 days Discharge Diet: Advance as tolerated Discharge Activity: Resume usual activity Patient Instructions: Foreign Body Ingestion (ED) Print Language: Georgian Coding Level of Care Code ED Medicaid Eligibility Specialist for Lasha Turner
[2024-05-15 16:31] VITALS: BP 162/90; PULSE 99; O2SAT 97
== END 2024-05-15 16:33 | disposition home or self-care (01) ==
PROVIDERS: Emergency Provider Emergency Medicine; PCP Nurse Practitioner Family
DX: T18.198A Other foreign object in esophagus causing other injury, initial encounter (principal); W44.8XXA Other foreign body entering into or through a natural orifice, initial encounter
CPT/HCPCS: 71045; 74018; 99284

== ENCOUNTER → 2024-05-22 12:29 | Outpatient (BNVA) | payer MEDICAID, SELFPAY | PROVIDERS: PCP Nurse Practitioner Family; Visit Provider Nurse Practitioner Family | DX: N30.00 Acute cystitis without hematuria (principal) | CPT/HCPCS: 81003 ==

== ENCOUNTER 2024-05-23 09:27 | Outpatient (CLI) | payer MEDICAID, SELFPAY ==
--- NOTE | 2024-05-23 09:33 | XR_ITS ---
WS: [email or web address] XR KUB [id number] REASON FOR EXAM: T18.9XXA - Foreign body of alimentary tract, part unspeci... FINDINGS: No metallic foreign body within the alimentary tract. The foreign body projected over the stomach on 05/15/2024 is no longer identifiable. Moderate amount of retained stool volume throughout the colon and rectum. No small bowel distention. No free air or retroperitoneal air. No organomegaly or mass. No significant calcification. XR/XR KUB [id number] IMPRESSION: No significant abnormality.
== END 2024-05-23 09:28 | disposition home or self-care (01) ==
PROVIDERS: PCP Nurse Practitioner Family; Visit Provider Nurse Practitioner Family
DX: T18.9XXA Foreign body of alimentary tract, part unspecified, initial encounter (principal); X58.XXXA Exposure to other specified factors, initial encounter; R93.89 Abnormal findings on diagnostic imaging of other specified body structures
CPT/HCPCS: 74018

== ENCOUNTER 2024-07-02 09:17 | Emergency (ER) | payer MEDICAID, SELFPAY ==
[2024-07-02 09:24] VITALS: BP 109/75; PULSE 110; RESP 16; TEMP 36.6; O2SAT 98; BMI 38.2
--- NOTE | 2024-07-02 10:02 | XR_ITS ---
WS: [email or web address] Exam: XR ankle RT min 3V* [id number] Date/Time of Exam: 07/02/2024 10:05 AM Reason For Exam: fall/injury No acute fracture noted. Probable old fracture deformity of the distal fibula. The ankle mortise is equidistant and shows minimal degenerative change. Mild soft tissue swelling about the ankle. XR/XR ankle RT min 3V* [id number] IMPRESSION: 1. Mild soft tissue swelling-no acute ankle fracture.
--- NOTE | 2024-07-02 10:02 | CT_ITS ---
WS: [id number] CT CERVICAL SPINE HISTORY: fall/injury TECHNIQUE: Contiguous 2.0 mm axial imaging performed through the entire cervical spine. Sagittal and coronal reformats also performed. All CT scans at [facility] use at least one of these dose optimization techniques: automated exposure control; mA and/or kV adjustment per patient size (includes targeted exams where dose is matched to clinical indication); or iterative reconstruction. DLP: 1312.16 mGy.cm COMPARISON: None available. Straightening and slight reversal of the normal cervical lordosis. Normal craniocervical junction. Lateral masses of C1 and C2 are aligned. The odontoid is intact. Mild RIGHT curvature. C2-C3: Normal. C3-C4: Normal. C4-C5: Normal. C5-C6: Small RIGHT foraminal osteophyte. C6-C7: Normal. C7-T1: Normal. Soft tissues are normal. Lung apices are clear. CT/CT cervical spin wo con* [id number] IMPRESSION: 1. No acute cervical spine fractures. 2. Mild straightening and slight reversal of the normal cervical lordosis.
--- NOTE | 2024-07-02 10:02 | CT_ITS ---
WS: [email or web address] CT HEAD NONCONTRAST HISTORY: fall/injury TECHNIQUE: Contiguous axial imaging performed through the brain. Bone and soft tissue windows. Sagittal and coronal reformats reviewed. All CT scans at [facility] use at least one of these dose optimization techniques: automated exposure control; mA and/or kV adjustment per patient size (includes targeted exams where dose is matched to clinical indication); or iterative reconstruction. DLP: 1312.16 mGy.cm COMPARISON: 01/10/2024 No acute intracranial hemorrhage, midline shift or mass effect. No atrophy or prior infarcts or herniation. Ventricles: Normal size with no hydrocephalus. Paranasal sinuses: As visualized are clear. Mastoid air cells: Well pneumatized. Calvarium and scalp: No skull fracture. Scalp hematoma centered over the high posterior LEFT parietal bone. CT/CT head wo con* [id number] IMPRESSION: 1. No acute intracranial hemorrhage or edema. 2. No skull fracture. 3. High posterior LEFT parietal scalp hematoma.
--- NOTE | 2024-07-02 10:03 | W.ED.FALL ---
HPI - Fall General: Chief Complaint: Extremity Injury, Lower Stated Complaint: fall-ankle and head pain Time Seen by Provider: 07/02/24 09:37 Source: patient and other (care staff) Mode of arrival: wheelchair Limitations: altered mental status (chronic mental disability) History of Present Illness: Patient is a 39-year-old female presents to ED today along with two of her care staff for evaluation of falls this morning. Staff states she fell while walking out to the car. She then reportedly fell out of the vehicle somehow. The staff with her here in the emergency department are not the staff that witnessed the fall this morning. They state they were told by the other caregiver that patient did not have any syncopal episode or seizure-like activity. She is at her mental baseline per care staff at time of my examination. She complains of pain to her right ankle and it is swollen here. She also has a small abrasion/hematoma to her scalp-care staff states they were told she struck her head during the fall. Patient has not been ill recently. No fevers. MD complaint: fall Onset (ago): hour(s) Fall from: standing and other (out of car) Fall witnessed: yes, by bystander (care staff) Place fall occurred: home Loss of consciousness: None Prolonged down time: no Symptoms prior to fall: none Location of injury: head Associated symptoms-after fall: Reports difficulty walking (due to pain in R ankle), headache(s) and neck pain; Denies abdominal pain, chest pain or lightheadedness Related Data Home Medications ?Medication ?Instructions ?Recorded ?Confirmed latanoprost 0.005 % eye drops 1 drp ophthalmic (eye) QPM 03/17/22 07/02/24 docusate sodium 100 mg capsule 100 mg PO BID 07/02/24 07/02/24 fluvoxamine 100 mg tablet 100 mg PO BID 07/02/24 07/02/24 fluvoxamine 50 mg tablet 50 mg PO DAILY 07/02/24 07/02/24 lactulose 10 gram/15 mL oral 30 g PO DAILY 07/02/24 07/02/24 solution pantoprazole 40 mg tablet,delayed 40 mg PO DAILY 07/02/24 07/02/24 release Previous Rx's ?Medication ?Instructions ?Recorded magnesium hydroxide 400 mg/5 mL 60 ml PO DAILY PRN constipation 05/15/23 oral suspension (Milk of Magnesia) #355 mL meloxicam 15 mg tablet 15 mg PO DAILY PRN pain #30 tabs 09/01/23 fluticasone propionate 50 2 spray intranasal DAILY PRN nasal 11/09/23 mcg/actuation nasal congestion/allergy symptoms #16 spray,suspension (Flonase Allergy grams Relief) medroxyprogesterone 150 mg/mL See Rx Instructions .Route 02/14/24 intramuscular suspension .COMPLEX #1 mL divalproex 500 mg tablet,extended 500 mg PO BID #60 tabs 04/02/24 release 24 hr levothyroxine 125 mcg tablet 125 mcg PO QAM #90 tabs 04/05/24 polyethylene glycol 3350 17 See Rx Instructions .Route 04/05/24 gram/dose oral powder .COMPLEX #510 grams clonazepam 0.5 mg tablet 0.5 mg PO TID #90 tabs 06/17/24 quetiapine 100 mg tablet 300 mg (3 x 100 mg) PO BEDTIME #30 06/25/24 tabs Allergies Allergy/AdvReac Type Severity Reaction Status Date / Time adhesive Allergy ALGY-Rash Verified 06/03/24 09:22 nitrofurantoin (From Allergy Unknown Verified 06/03/24 09:22 Macrobid) Penicillins Allergy Unknown Verified 06/03/24 09:22 TIDE DETERGENT Allergy Unknown Uncoded 06/03/24 09:22 Review of Systems Const: Denies: fever(s), chills, body aches, fatigue or malaise Eyes: Denies: change in vision or blurry vision Card: Denies: chest pain, palpitations, irregular heart rhythm, lightheadedness, syncope or dyspnea on exertion Resp: Denies: dyspnea, productive cough or pain on inspiration GI: Denies: abdominal pain, nausea, vomiting, heartburn or diarrhea : Denies: flank pain or dysuria Musc: Reports: neck pain, joint pain (R ankle) and joint swelling (R ankle); Denies: back pain, extremity pain or extremity swelling Skin/Breast: Denies: rash Neuro: Reports: headache(s) and difficulty walking (due to pain in R ankle); Denies: numbness in extremities, weakness in extremities or sensory changes PFS ED PFSH: Medical History Vitamin D deficiency Depression Seizure disorder Psychiatric care Psychoses Mental disability Constipation Major depressive disorder, recurrent severe without psychotic features Post-traumatic stress disorder, chronic Hypothyroidism Surgical History Hx of bilateral breast reduction surgery H/O esophagogastroduodenoscopy (07/05/20) removal of FB History of cholecystectomy Social History Smoking and tobacco/nicotine status: never used tobacco/nicotine Second hand smoke exposure: No Alcohol intake: never Substance/Drug Use: never Additional social history: Patient states that she grew up in [place]. She is currently living in a [facility] and is under guardianship. She enjoys playing games and eating hamburgers. She is despondent that there is no place in [place] where she can get a hamburger and does not know how to make one on her own. Caregiver/support person: Yes Lives independently: No Household members: other Details: LIVES IN A NURSING HOME Housing: Assisted Living Facility Marital status: Single Current occupational status: disabled Current gender identity: Female Physical Exam Const: COMMON NORMALS: no acute distress, average body habitus, no limitations, healthy appearing, alert and well nourished GENERAL APPEARANCE: cooperative ORIENTATION/CONSCIOUSNESS: Yes awake, Yes oriented to person and Yes oriented to place OTHER: at mental baseline per care staff HENMT: COMMON NORMALS: normocephalic and TM's normal bilaterally HEAD & SCALP: normal to inspection, normocephalic and hematoma (L parietal scalp); no Peterson's sign and no raccoon eyes FACE & SINUS: normal facial exam TYMPANIC MEMBRANE: TM's normal bilaterally MOUTH: other (no intraoral injuries noted) Eye: COMMON NORMALS: Equal, round and reactive pupils present and EOMs intact bilaterally GENERAL EYE: appearance normal, both eyes and all related structures and normal light reflex PUPIL: Yes Equal, round and reactive pupils present DIRECT OPHTHALMOSCOPY: Yes normal light reflex Neck/C-Spine: COMMON NORMALS: full ROM GENERAL: Yes normal visual inspection CERVICAL SPINE: Yes cervical ROM normal, Yes pain with cervical ROM, Yes Cervical spine tenderness, No step off deformity and No Paracervical muscle tenderness Chest: COMMONS NORMALS: normal inspection of the chest and normal palpation of entire chest wall Resp: COMMON NORMALS: normal respiratory effort and clear to auscultation bilaterally AUSCULTATION: clear to auscultation bilaterally Cardio: COMMON NORMALS: regular rate and regular rhythm RATE: regular rate RHYTHM: regular rhythm GI: COMMON NORMALS: Normal to inspection, nondistended, normoactive bowel sounds present, Soft to palpation, non-tender, No hepatosplenomegaly present and no masses INSPECTION: Yes normal to inspection and No abdominal wall ecchymosis AUSCULTATION: Yes normoactive bowel sounds PALPATION: Yes Soft to palpation and Yes No hepatosplenomegaly present Back/Pelvis: COMMON NORMALS: thoracic and lumbar spine normal to inspection, no thoracic nor lumbar tenderness and thoraco-lumbar ROM normal Extremity: COMMON NORMALS: normal to inspection, capillary refill normal, no clubbing, cyanosis or edema, no calf tenderness and no pedal edema RIGHT LOWER EXTREMITY: Yes foot & digits (TTP/edema R ankle; no bony deformity) Right ankle: Yes neurovascular exam (normal) Neuro: CODIE COMA SCALE: document GCS findings [place] coma scale eye opening: Spontaneous [place] coma scale verbal response: Orientated Codie coma scale motor response: Obey commands [place] coma scale total score: 15 COMMON NORMALS: CN's II-XII intact bilaterally, moves all extremities, no focal motor deficits and no sensory deficits noted SENSORIUM/ORIENTATION: Yes alert, Yes oriented to person and Yes oriented to place SPEECH: speech normal GAIT: Yes Normal gait present Skin: COMMON NORMALS: no rashes or lesions noted NARRATIVE SKIN EXAM: scalp hematoma/abrasion GENERAL SKIN EXAM: no rashes or lesions noted Course Vital Signs: Vital signs: Vital Signs Temperature 97.8 F 07/02/24 09:24 Pulse Rate 110 H 07/02/24 09:24 Respiratory Rate 16 07/02/24 09:24 Blood Pressure 109/75 07/02/24 09:24 Pulse Oximetry 98 07/02/24 09:24 Oxygen Delivery Me thod Room Air 07/02/24 09:24 MDM - Fall Medical Decision Making Right ankle XR obtained and unremarkable. She was placed in an JORGE wrap for her ankle sprain. CT head and cervical spine are unremarkable. She was ambulatory here in the emergency department without difficulty or assistance. She clinically appears in no acute distress. Vital signs are stable and similar to previous. She will be allowed discharge with return precautions. Medical Records I reviewed the patient's medical records. Lab Data Radiology Impressions Ankle X-Ray 07/02/24 10:02 IMPRESSION: 1. Mild soft tissue swelling-no acute ankle fracture. Cervical Spine CT 07/02/24 10:02 IMPRESSION: 1. No acute cervical spine fractures. 2. Mild straightening and slight reversal of the normal cervical lordosis. Head CT 07/02/24 10:02 IMPRESSION: 1. No acute intracranial hemorrhage or edema. 2. No skull fracture. 3. High posterior LEFT parietal scalp hematoma. All radiology interpretation(s) finalized by discharge Discharge Plan Discharge Patient Disposition: Home Clinical Impression: Right ankle sprain Qualifiers: Encounter type: initial encounter Involved ligament of ankle: unspecified ligament Qualified Code(s): S93.401A - Sprain of unspecified ligament of right ankle, initial encounter Fall Qualifiers: Encounter type: initial encounter Qualified Code(s): W19.XXXA - Unspecified fall, initial encounter Hematoma of left parietal scalp Qualifiers: Encounter type: initial encounter Qualified Code(s): S00.03XA - Contusion of scalp, initial encounter Condition: Stable Prescriptions: No Action latanoprost 0.005 % drops 1 drp ophthalmic (eye) QPM magnesium hydroxide [Milk of Magnesia] 400 mg/5 mL suspension 60 ml PO DAILY PRN (Reason: constipation) Qty: 355 3RF meloxicam 15 mg tablet 15 mg PO DAILY PRN (Reason: pain) Qty: 30 2RF Rx Instructions: no ibuprofen on day of meloxicam use fluticasone propionate [Flonase Allergy Relief] 50 mcg/actuation spray,suspension 2 spray intranasal DAILY PRN (Reason: nasal congestion/allergy symptoms) Qty: 16 0RF Rx Instructions: administer into each nostril medroxyprogesterone 150 mg/mL suspension See Rx Instructions .ROUTE .COMPLEX Qty: 1 3RF Dose Instruction: INJECT 1mL INTRAMUSCULARLY ONCE every THREE MONTHS Rx Instructions: INJECT 1mL INTRAMUSCULARLY ONCE every THREE MONTHS divalproex 500 mg tablet extended release 24 hr 500 mg PO BID Qty: 60 2RF levothyroxine 125 mcg tablet 125 mcg PO QAM Qty: 90 0RF polyethylene glycol 3350 17 gram/dose powder See Rx Instructions .ROUTE .COMPLEX Qty: 510 3RF Dose Instruction: FILL CAP TO LINE (17 GRAMS), MIX IN 8 OUNCES OF LIQUID AND DRINK BY MOUTH ONCE DAILY Rx Instructions: FILL CAP TO LINE (17 GRAMS), MIX IN 8 OUNCES OF LIQUID AND DRINK BY MOUTH ONCE DAILY clonazepam 0.5 mg tablet 0.5 mg PO TID Qty: 90 2RF quetiapine 100 mg tablet 300 mg PO BEDTIME Qty: 30 2RF lactulose 10 gram/15 mL Solution 30 g PO DAILY fluvoxamine 100 mg tablet 100 mg PO BID Rx Instructions: TAKE ONE TABLET BY MOUTH TWICE DAILY ALONG WITH 50MG TO= 150MG TOTAL pantoprazole 40 mg tablet,delayed release (DR/EC) 40 mg PO DAILY Rx Instructions: TAKE 1 TABLET BY MOUTH DAILY docusate sodium 100 mg capsule 100 mg PO BID Rx Instructions: TAKE ONE CAPSULE BY MOUTH TWICE DAILY fluvoxamine 50 mg tablet 50 mg PO DAILY Rx Instructions: TAKE 1 TABLET BY MOUTH TWICE DAILY ALONG WITH 100MG TO= 150MG TOTAL Discharge Orders: Discharge ED (Routine); Ordered 07/02/24 Ordered By: Toma Minor Referrals: Ольга Quarles FNP [Primary Care Provider, Family Practice] Activity Restrictions/Additional Instructions: You may ice and elevate the ankle to help with swelling. She may take [id number] Tylenol or ibuprofen as needed for discomfort. Weightbearing as tolerated. JORGE wrap to help with swelling. She can follow-up with primary care later this week/next week for reevaluation if symptoms are not improving. You may bring patient back to the emergency department for further falls, dizziness, lightheadedness, passing out episodes, seizure episodes, or any other concerns you may have. Print Language: Macedonian Coding Level of Care Code ED Cloth Colors Examiner for Lasha Turner
--- NOTE | 2024-07-02 10:23 | PC.PHAR ---
patient is from [facility] # [phone], (hemanth is caregiver # [phone]) uses [facility] for all medication refills they sent me a list of all her pill [facility]ary drugs to verify off of
[2024-07-02 12:31] VITALS: BP 127/82; PULSE 95; O2SAT 99
== END 2024-07-02 12:33 | disposition home or self-care (01) ==
PROVIDERS: Emergency Provider Physician Assistant; PCP Nurse Practitioner Family
DX: S93.401A Sprain of unspecified ligament of right ankle, initial encounter (principal); S00.03XA Contusion of scalp, initial encounter; W19.XXXA Unspecified fall, initial encounter
CPT/HCPCS: 70450; 72125; 73610; 99284

== ENCOUNTER → 2024-07-10 14:36 | Outpatient (BNVA) | payer MEDICAID, SELFPAY | PROVIDERS: PCP Nurse Practitioner Family; Visit Provider Nurse Practitioner Family | DX: S93.491A Sprain of other ligament of right ankle, initial encounter (principal); X58.XXXA Exposure to other specified factors, initial encounter | CPT/HCPCS: 73610 ==

== ENCOUNTER 2024-07-15 18:37 | Emergency (ER) | payer MEDICAID, SELFPAY ==
--- NOTE | 2024-07-15 18:38 | XRR_ITS ---
PROCEDURE INFORMATION: Exam: XR Abdomen, MR Screening Exam date and time: 07/15/2024 6:52 PM Age: 39 years old Clinical indication: Other: Swallowed a pencil sharpener; Additional info: Fb TECHNIQUE: Imaging protocol: Radiologic exam of the abdomen and pelvis. Exam was performed for MR screening. Views: 1 view. COMPARISON: CR XR KUB [id number] 05/23/2024 9:47 AM FINDINGS: Gastrointestinal tract: Two small radiopaque metallic foreign body densities are seen in the upper left abdomen medially, one with the appearance of a tiny screw. History of ingestion of a pencil sharpener. These likely reside inferior mid stomach region though could also reside within the distal duodenum adjacent to the stomach. Nonspecific bowel gas pattern without dilatation. Moderate stool content. Intraperitoneal space: No indication of free air. Bones/joints: Visualized osseous structures show no acute abnormality. XR/XR KUB [id number] IMPRESSION: Two small radiopaque metallic foreign body densities medial upper left abdomen in this patient with history of ingestion of a pencil sharpener. These most likely reside inferior mid stomach region.
[2024-07-15 18:41] VITALS: BP 134/95; PULSE 126; TEMP 36.8; O2SAT 93
--- NOTE | 2024-07-15 18:53 | W.ED.GENADLT ---
HPI - General Adult General: Chief complaint: Abdominal Pain Stated complaint: Swallowed a Eraser Time Seen by Provider: 07/15/24 18:38 Source: patient Mode of arrival: ambulatory Limitations: no limitations History of Present Illness: 39-year-old female who very well-known to the ER states that she swallowed a pencil sharpener today. She is seen here multiple times for swallowing objects. She denies any pain denies any vomiting. Associated symptoms: Deny chest pain, dyspnea, headache(s), nausea, rash or vomiting Related Data Home Medications ?Medication ?Instructions ?Recorded ?Confirmed latanoprost 0.005 % eye drops 1 drp ophthalmic (eye) QPM 03/17/22 07/10/24 docusate sodium 100 mg capsule 100 mg PO BID 07/02/24 07/10/24 fluvoxamine 100 mg tablet 100 mg PO BID 07/02/24 07/10/24 fluvoxamine 50 mg tablet 50 mg PO DAILY 07/02/24 07/10/24 lactulose 10 gram/15 mL oral 30 g PO DAILY 07/02/24 07/10/24 solution pantoprazole 40 mg tablet,delayed 40 mg PO DAILY 07/02/24 07/10/24 release Previous Rx's ?Medication ?Instructions ?Recorded magnesium hydroxide 400 mg/5 mL 60 ml PO DAILY PRN constipation 05/15/23 oral suspension (Milk of Magnesia) #355 mL meloxicam 15 mg tablet 15 mg PO DAILY PRN pain #30 tabs 09/01/23 fluticasone propionate 50 2 spray intranasal DAILY PRN nasal 11/09/23 mcg/actuation nasal congestion/allergy symptoms #16 spray,suspension (Flonase Allergy grams Relief) medroxyprogesterone 150 mg/mL See Rx Instructions .Route 02/14/24 intramuscular suspension .COMPLEX #1 mL divalproex 500 mg tablet,extended 500 mg PO BID #60 tabs 04/02/24 release 24 hr levothyroxine 125 mcg tablet 125 mcg PO QAM #90 tabs 04/05/24 clonazepam 0.5 mg tablet 0.5 mg PO TID #90 tabs 06/17/24 quetiapine 100 mg tablet 300 mg (3 x 100 mg) PO BEDTIME #30 06/25/24 tabs polyethylene glycol 3350 17 See Rx Instructions .Route 07/04/24 gram/dose oral powder .COMPLEX #510 grams prednisone 20 mg tablet 20 mg PO BID #10 tabs 07/10/24 Allergies Allergy/AdvReac Type Severity Reaction Status Date / Time adhesive Allergy ALGY-Rash Verified 07/15/24 18:47 nitrofurantoin (From Allergy Unknown Verified 07/15/24 18:47 Macrobid) Penicillins Allergy Unknown Verified 07/15/24 18:47 TIDE DETERGENT Allergy Unknown Uncoded 07/15/24 18:47 Review of Systems Const: Denies: fever(s), chills, body aches or change in appetite ENMT: Denies: throat pain or dental pain Card: Denies: chest pain Resp: Denies: dyspnea GI: Denies: abdominal pain, nausea, vomiting or diarrhea : Denies: dysuria Musc: Denies: neck pain or back pain Skin/Breast: Denies: rash Neuro: Denies: headache(s) PFSH ED PFSH: Medical History Vitamin D deficiency Depression Seizure disorder Psychiatric care Psychoses Mental disability Constipation Major depressive disorder, recurrent severe without psychotic features Post-traumatic stress disorder, chronic Hypothyroidism Surgical History Hx of bilateral breast reduction surgery H/O esophagogastroduodenoscopy (07/05/20) removal of FB History of cholecystectomy Social History Smoking and tobacco/nicotine status: never used tobacco/nicotine Second hand smoke exposure: No Alcohol intake: never Substance/Drug Use: never Additional social history: Patient states that she grew up in [place]. She is currently living in a assisted and is under guardianship. She enjoys playing games and eating hamburgers. She is despondent that there is no place in [place] where she can get a hamburger and does not know how to make one on her own. Caregiver/support person: Yes Lives independently: No Household members: other Details: LIVES IN A RESIDENTIAL Housing: Assisted Living Facility Marital status: Single Current occupational status: disabled Current gender identity: Female Physical Exam Const: COMMON NORMALS: no acute distress, patient oriented x3 and healthy appearing HENMT: COMMON NORMALS: normocephalic and atraumatic HEAD & SCALP: normocephalic and atraumatic Eye: COMMON NORMALS: conjunctivae normal CONJUNCTIVA: Yes conjunctivae normal Neck/C-Spine: COMMON NORMALS: full ROM and supple Chest: COMMONS NORMALS: normal inspection of the chest Resp: COMMON NORMALS: normal respiratory effort Cardio: COMMON NORMALS: regular rate RATE: regular rate Extremity: COMMON NORMALS: normal to inspection and full ROM Neuro: COMMON NORMALS: patient oriented x3, moves all extremities and no focal motor deficits Psych: COMMON NORMALS: mental status grossly normal, Normal thought process present and cooperative THOUGHT PROCESS: Normal thought process present Skin: COMMON NORMALS: no rashes or lesions noted and no wounds GENERAL SKIN EXAM: no rashes or lesions noted Course Vital Signs: Vital signs: Vital Signs Temperature 98.3 F 07/15/24 18:41 Pulse Rate 126 H 07/15/24 18:41 Blood Pressure 134/95 07/15/24 18:41 Pulse Oximetry 93 07/15/24 18:41 Oxygen Delivery Me thod Room Air 07/15/24 18:41 MDM - General Adult Medical Decision Making Patient presents here with swallowed foreign body did reveal a foreign body on the x-ray tender intestine she is to have repeat x-rays make sure that she passes that she stable for discharge. XR interpretation done by ED provider, pending radiology final review ED provider radiology interpretation(s): X-ray KUB foreign body noted Discharge Plan Discharge Patient Disposition: Home Clinical Impression: Foreign body, swallowed Condition: Stable Prescriptions: No Action latanoprost 0.005 % drops 1 drp ophthalmic (eye) QPM magnesium hydroxide [Milk of Magnesia] 400 mg/5 mL suspension 60 ml PO DAILY PRN (Reason: constipation) Qty: 355 3RF meloxicam 15 mg tablet 15 mg PO DAILY PRN (Reason: pain) Qty: 30 2RF Rx Instructions: no ibuprofen on day of meloxicam use fluticasone propionate [Flonase Allergy Relief] 50 mcg/actuation spray,suspension 2 spray intranasal DAILY PRN (Reason: nasal congestion/allergy symptoms) Qty: 16 0RF Rx Instructions: administer into each nostril prednisone 20 mg tablet 20 mg PO BID Qty: 10 0RF medroxyprogesterone 150 mg/mL suspension See Rx Instructions .ROUTE .COMPLEX Qty: 1 3RF Dose Instruction: INJECT 1mL INTRAMUSCULARLY ONCE every THREE MONTHS Rx Instructions: INJECT 1mL INTRAMUSCULARLY ONCE every THREE MONTHS divalproex 500 mg tablet extended release 24 hr 500 mg PO BID Qty: 60 2RF levothyroxine 125 mcg tablet 125 mcg PO QAM Qty: 90 0RF clonazepam 0.5 mg tablet 0.5 mg PO TID Qty: 90 2RF quetiapine 100 mg tablet 300 mg PO BEDTIME Qty: 30 2RF polyethylene glycol 3350 17 gram/dose powder See Rx Instructions .ROUTE .COMPLEX Qty: 510 3RF Dose Instruction: FILL CAP TO LINE (17 GRAMS), MIX IN 8 OUNCES OF LIQUID AND DRINK BY MOUTH ONCE DAILY Rx Instructions: FILL CAP TO LINE (17 GRAMS), MIX IN 8 OUNCES OF LIQUID AND DRINK BY MOUTH ONCE DAILY lactulose 10 gram/15 mL Solution 30 g PO DAILY fluvoxamine 100 mg tablet 100 mg PO BID Rx Instructions: TAKE ONE TABLET BY MOUTH TWICE DAILY ALONG WITH 50MG TO= 150MG TOTAL pantoprazole 40 mg tablet,delayed release (DR/EC) 40 mg PO DAILY Rx Instructions: TAKE 1 TABLET BY MOUTH DAILY docusate sodium 100 mg capsule 100 mg PO BID Rx Instructions: TAKE ONE CAPSULE BY MOUTH TWICE DAILY fluvoxamine 50 mg tablet 50 mg PO DAILY Rx Instructions: TAKE 1 TABLET BY MOUTH TWICE DAILY ALONG WITH 100MG TO= 150MG TOTAL Discharge Orders: Discharge ED (Routine); Ordered 07/15/24 Ordered By: Omar Alicea Referrals: Ольга Quarles FNP [Primary Care Provider, Family Practice] - 4-7 days Discharge Diet: Advance as tolerated Discharge Activity: Resume usual activity Patient Instructions: Foreign Body - Swallowed Print Language: Greenlandic Coding Level of Care Code ED Technical Designer for Lasha Turner
[2024-07-15 20:16] VITALS: BP 139/81; PULSE 103; RESP 18; O2SAT 97
== END 2024-07-15 20:18 | disposition home or self-care (01) ==
PROVIDERS: Emergency Provider Emergency Medicine; PCP Nurse Practitioner Family
DX: T18.9XXA Foreign body of alimentary tract, part unspecified, initial encounter (principal); W44.8XXA Other foreign body entering into or through a natural orifice, initial encounter
CPT/HCPCS: 74018; 99283

== ENCOUNTER → 2024-07-24 14:11 | Outpatient (BNVA) | payer MEDICAID, SELFPAY | PROVIDERS: PCP Nurse Practitioner Family; Visit Provider Nurse Practitioner Family | DX: T18.9XXA Foreign body of alimentary tract, part unspecified, initial encounter (principal); X58.XXXA Exposure to other specified factors, initial encounter | CPT/HCPCS: 74018 ==

== ENCOUNTER 2024-07-27 05:06 | Emergency (ER) | payer MEDICAID, SELFPAY ==
[2024-07-27 05:21] VITALS: BP 115/86; PULSE 97; RESP 17; TEMP 36.4; O2SAT 97; BMI 35.7
--- NOTE | 2024-07-27 05:27 | CTR_ITS ---
PROCEDURE INFORMATION: Exam: CT Head Without Contrast Exam date and time: 07/27/2024 5:43 AM Age: 39 years old Clinical indication: Injury or trauma; Fall; Blunt trauma (contusions or hematomas); Patient fell getting out of bed hitting RT posterior head on nightstand. TECHNIQUE: Imaging protocol: Computed tomography of the head without contrast. Radiation optimization: All CT scans at this facility use at least one of these dose optimization techniques: automated exposure control; mA and/or kV adjustment per patient size (includes targeted exams where dose is matched to clinical indication); or iterative reconstruction. COMPARISON: CT head wo con* [id number] 07/02/2024 10:37 AM RADIATION DOSE METRICS: Total DLP (mGy-cm): 988.92 FINDINGS: Brain: Normal. No hemorrhage. Unremarkable white matter. No mass effect. Cerebral ventricles: No ventriculomegaly. Paranasal sinuses: Visualized sinuses are unremarkable. No fluid levels. Mastoid air cells: Visualized mastoid air cells are well aerated. Bones: Unremarkable. No acute fracture. Soft tissues: Unremarkable. CT/CT head wo con* [id number] IMPRESSION: No acute intracranial abnormality.
--- NOTE | 2024-07-27 05:27 | W.ED.FALL ---
Documented by User: José Miguel Fowler MD 07/27/24 05:52 HPI - Fall General: Chief Complaint: Fall Stated Complaint: fall hit back of head Time Seen by Provider: 07/27/24 05:24 History of Present Illness: Patient is brought in by her caregiver after she lost her balance and fell hitting the back of her head on the bed frame this morning. Did not pass out. Has not thrown up. On physical exam she has a contusion to the right posterior scalp. Will check CT scan without IV contrast of the head, and reassess. Related Data Home Medications ?Medication ?Instructions ?Recorded ?Confirmed latanoprost 0.005 % eye drops 1 drp ophthalmic (eye) QPM 03/17/22 07/24/24 docusate sodium 100 mg capsule 100 mg PO BID 07/02/24 07/24/24 fluvoxamine 100 mg tablet 100 mg PO BID 07/02/24 07/24/24 fluvoxamine 50 mg tablet 50 mg PO DAILY 07/02/24 07/24/24 pantoprazole 40 mg tablet,delayed 40 mg PO DAILY 07/02/24 07/24/24 release Previous Rx's ?Medication ?Instructions ?Recorded magnesium hydroxide 400 mg/5 mL 60 ml PO DAILY PRN constipation 05/15/23 oral suspension (Milk of Magnesia) #355 mL meloxicam 15 mg tablet 15 mg PO DAILY PRN pain #30 tabs 09/01/23 fluticasone propionate 50 2 spray intranasal DAILY PRN nasal 11/09/23 mcg/actuation nasal congestion/allergy symptoms #16 spray,suspension (Flonase Allergy grams Relief) medroxyprogesterone 150 mg/mL See Rx Instructions .Route 02/14/24 intramuscular suspension .COMPLEX #1 mL divalproex 500 mg tablet,extended 500 mg PO BID #60 tabs 04/02/24 release 24 hr levothyroxine 125 mcg tablet 125 mcg PO QAM #90 tabs 04/05/24 clonazepam 0.5 mg tablet 0.5 mg PO TID #90 tabs 06/17/24 quetiapine 100 mg tablet 300 mg (3 x 100 mg) PO BEDTIME #30 06/25/24 tabs polyethylene glycol 3350 17 See Rx Instructions .Route 07/04/24 gram/dose oral powder .COMPLEX #510 grams Allergies Allergy/AdvReac Type Severity Reaction Status Date / Time adhesive Allergy ALGY-Rash Verified 07/24/24 14:08 nitrofurantoin (From Allergy Unknown Verified 07/24/24 14:08 Macrobid) Penicillins Allergy Unknown Verified 07/24/24 14:08 TIDE DETERGENT Allergy Unknown Uncoded 07/24/24 14:08 Review of Systems Const: Reports: other (Headache) PFSH ED PFSH: Medical History Vitamin D deficiency Depression Seizure disorder Psychiatric care Psychoses Mental disability Constipation Major depressive disorder, recurrent severe without psychotic features Post-traumatic stress disorder, chronic Hypothyroidism Surgical History Hx of bilateral breast reduction surgery H/O esophagogastroduodenoscopy (07/05/20) removal of FB History of cholecystectomy Social History Smoking and tobacco/nicotine status: never used tobacco/nicotine Second hand smoke exposure: No Alcohol intake: never Substance/Drug Use: never Additional social history: Patient states that she grew up in [place]. She is currently living in a fdc and is under guardianship. She enjoys playing games and eating hamburgers. She is despondent that there is no place in [place] where she can get a hamburger and does not know how to make one on her own. Caregiver/support person: Yes Lives independently: No Household members: other Details: LIVES IN A SNF Housing: Assisted Living Facility Marital status: Single Current occupational status: disabled Current gender identity: Female Physical Exam Const: COMMON NORMALS: no acute distress, healthy appearing and alert HENMT: OTHER: Contusion to the right posterior scalp Eye: COMMON NORMALS: Equal, round and reactive pupils present and EOMs intact bilaterally PUPIL: Yes Equal, round and reactive pupils present Neck/C-Spine: COMMON NORMALS: full ROM and supple Extremity: COMMON NORMALS: normal to inspection and full ROM Neuro: SENSORIUM/ORIENTATION: Yes alert Course Vital Signs: Vital signs: Vital Signs Temperature 97.6 F 07/27/24 05:21 Pulse Rate 97 07/27/24 05:21 Respiratory Rate 17 07/27/24 05:21 Blood Pressure 115/86 07/27/24 05:21 Pulse Oximetry 97 07/27/24 05:21 Oxygen Delivery Me thod Room Air 07/27/24 05:21 MDM - Fall Medical Decision Making Awaiting CT head. Will sign out to the oncoming physician at 6 am to follow up on the CT and dispo accordingly. Lab Data Radiology Impressions Head CT 07/27/24 05:27 IMPRESSION: No acute intracranial abnormality. All radiology interpretation(s) finalized by discharge Discharge Plan Discharge Patient Disposition: Home Clinical Impression: Contusion of scalp Condition: Stable Prescriptions: No Action latanoprost 0.005 % drops 1 drp ophthalmic (eye) QPM magnesium hydroxide [Milk of Magnesia] 400 mg/5 mL suspension 60 ml PO DAILY PRN (Reason: constipation) Qty: 355 3RF meloxicam 15 mg tablet 15 mg PO DAILY PRN (Reason: pain) Qty: 30 2RF Rx Instructions: no ibuprofen on day of meloxicam use fluticasone propionate [Flonase Allergy Relief] 50 mcg/actuation spray,suspension 2 spray intranasal DAILY PRN (Reason: nasal congestion/allergy symptoms) Qty: 16 0RF Rx Instructions: administer into each nostril medroxyprogesterone 150 mg/mL suspension See Rx Instructions .ROUTE .COMPLEX Qty: 1 3RF Dose Instruction: INJECT 1mL INTRAMUSCULARLY ONCE every THREE MONTHS Rx Instructions: INJECT 1mL INTRAMUSCULARLY ONCE every THREE MONTHS divalproex 500 mg tablet extended release 24 hr 500 mg PO BID Qty: 60 2RF levothyroxine 125 mcg tablet 125 mcg PO QAM Qty: 90 0RF clonazepam 0.5 mg tablet 0.5 mg PO TID Qty: 90 2RF quetiapine 100 mg tablet 300 mg PO BEDTIME Qty: 30 2RF polyethylene glycol 3350 17 gram/dose powder See Rx Instructions .ROUTE .COMPLEX Qty: 510 3RF Dose Instruction: FILL CAP TO LINE (17 GRAMS), MIX IN 8 OUNCES OF LIQUID AND DRINK BY MOUTH ONCE DAILY Rx Instructions: FILL CAP TO LINE (17 GRAMS), MIX IN 8 OUNCES OF LIQUID AND DRINK BY MOUTH ONCE DAILY fluvoxamine 100 mg tablet 100 mg PO BID Rx Instructions: TAKE ONE TABLET BY MOUTH TWICE DAILY ALONG WITH 50MG TO= 150MG TOTAL pantoprazole 40 mg tablet,delayed release (DR/EC) 40 mg PO DAILY Rx Instructions: TAKE 1 TABLET BY MOUTH DAILY docusate sodium 100 mg capsule 100 mg PO BID Rx Instructions: TAKE ONE CAPSULE BY MOUTH TWICE DAILY fluvoxamine 50 mg tablet 50 mg PO DAILY Rx Instructions: TAKE 1 TABLET BY MOUTH TWICE DAILY ALONG WITH 100MG TO= 150MG TOTAL Discharge Orders: Discharge ED (Routine); Ordered 07/27/24 Ordered By: Omar Alicea Referrals: Ольга Quarles, JACKIE [Primary Care Provider, Family Practice] Discharge Diet: Advance as tolerated Discharge Activity: Resume usual activity Patient Instructions: Head Injury (ED) Print Language: Prydeinig Coding Level of Care Code ED Automation Lead for Chg Fwd Documented by User: Omar Alicea MD 07/27/24 06:10 HPI - Fall General: Chief Complaint: Fall Stated Complaint: fall hit back of head Time Seen by Provider: 07/27/24 05:24 Related Data Home Medications ?Medication ?Instructions ?Recorded ?Confirmed latanoprost 0.005 % eye drops 1 drp ophthalmic (eye) QPM 03/17/22 07/24/24 docusate sodium 100 mg capsule 100 mg PO BID 07/02/24 07/24/24 fluvoxamine 100 mg tablet 100 mg PO BID 07/02/24 07/24/24 fluvoxamine 50 mg tablet 50 mg PO DAILY 07/02/24 07/24/24 pantoprazole 40 mg tablet,delayed 40 mg PO DAILY 07/02/24 07/24/24 release Previous Rx's ?Medication ?Instructions ?Recorded magnesium hydroxide 400 mg/5 mL 60 ml PO DAILY PRN constipation 05/15/23 oral suspension (Milk of Magnesia) #355 mL meloxicam 15 mg tablet 15 mg PO DAILY PRN pain #30 tabs 09/01/23 fluticasone propionate 50 2 spray intranasal DAILY PRN nasal 11/09/23 mcg/actuation nasal congestion/allergy symptoms #16 spray,suspension (Flonase Allergy grams Relief) medroxyprogesterone 150 mg/mL See Rx Instructions .Route 02/14/24 intramuscular suspension .COMPLEX #1 mL divalproex 500 mg tablet,extended 500 mg PO BID #60 tabs 04/02/24 release 24 hr levothyroxine 125 mcg tablet 125 mcg PO QAM #90 tabs 04/05/24 clonazepam 0.5 mg tablet 0.5 mg PO TID #90 tabs 06/17/24 quetiapine 100 mg tablet 300 mg (3 x 100 mg) PO BEDTIME #30 06/25/24 tabs polyethylene glycol 3350 17 See Rx Instructions .Route 07/04/24 gram/dose oral powder .COMPLEX #510 grams Allergies Allergy/AdvReac Type Severity Reaction Status Date / Time adhesive Allergy ALGY-Rash Verified 07/24/24 14:08 nitrofurantoin (From Allergy Unknown Verified 07/24/24 14:08 Macrobid) Penicillins Allergy Unknown Verified 07/24/24 14:08 TIDE DETERGENT Allergy Unknown Uncoded 07/24/24 14:08 PFS ED PFSH: Medical History Vitamin D deficiency Depression Seizure disorder Psychiatric care Psychoses Mental disability Constipation Major depressive disorder, recurrent severe without psychotic features Post-traumatic stress disorder, chronic Hypothyroidism Surgical History Hx of bilateral breast reduction surgery H/O esophagogastroduodenoscopy (07/05/20) removal of FB History of cholecystectomy Social History Smoking and tobacco/nicotine status: never used tobacco/nicotine Second hand smoke exposure: No Alcohol intake: never Substance/Drug Use: never Additional social history: Patient states that she grew up in [place]. She is currently living in a fdc and is under guardianship. She enjoys playing games and eating hamburgers. She is despondent that there is no place in [place] where she can get a hamburger and does not know how to make one on her own. Caregiver/support person: Yes Lives independently: No Household members: other Details: LIVES IN A SNF Housing: Assisted Living Facility Marital status: Single Current occupational status: disabled Current gender identity: Female Course Vital Signs: Vital signs: Vital Signs Temperature 97.6 F 07/27/24 05:21 Pulse Rate 97 07/27/24 05:21 Respiratory Rate 17 07/27/24 05:21 Blood Pressure 115/86 07/27/24 05:21 Pulse Oximetry 97 07/27/24 05:21 Oxygen Delivery Me thod Room Air 07/27/24 05:21 MDM - Fall Medical Decision Making Awaiting CT head. Will sign out to the oncoming physician at 6 am to follow up on the CT and dispo accordingly. Head CT here is normal patient stable for discharge follow-up PCP return if worsening Lab Data Radiology Impressions Head CT 07/27/24 05:27 IMPRESSION: No acute intracranial abnormality. Discharge Plan Discharge Patient Disposition: Home Clinical Impression: Contusion of scalp Condition: Stable Prescriptions: No Action latanoprost 0.005 % drops 1 drp ophthalmic (eye) QPM magnesium hydroxide [Milk of Magnesia] 400 mg/5 mL suspension 60 ml PO DAILY PRN (Reason: constipation) Qty: 355 3RF meloxicam 15 mg tablet 15 mg PO DAILY PRN (Reason: pain) Qty: 30 2RF Rx Instructions: no ibuprofen on day of meloxicam use fluticasone propionate [Flonase Allergy Relief] 50 mcg/actuation spray,suspension 2 spray intranasal DAILY PRN (Reason: nasal congestion/allergy symptoms) Qty: 16 0RF Rx Instructions: administer into each nostril medroxyprogesterone 150 mg/mL suspension See Rx Instructions .ROUTE .COMPLEX Qty: 1 3RF Dose Instruction: INJECT 1mL INTRAMUSCULARLY ONCE every THREE MONTHS Rx Instructions: INJECT 1mL INTRAMUSCULARLY ONCE every THREE MONTHS divalproex 500 mg tablet extended release 24 hr 500 mg PO BID Qty: 60 2RF levothyroxine 125 mcg tablet 125 mcg PO QAM Qty: 90 0RF clonazepam 0.5 mg tablet 0.5 mg PO TID Qty: 90 2RF quetiapine 100 mg tablet 300 mg PO BEDTIME Qty: 30 2RF polyethylene glycol 3350 17 gram/dose powder See Rx Instructions .ROUTE .COMPLEX Qty: 510 3RF Dose Instruction: FILL CAP TO LINE (17 GRAMS), MIX IN 8 OUNCES OF LIQUID AND DRINK BY MOUTH ONCE DAILY Rx Instructions: FILL CAP TO LINE (17 GRAMS), MIX IN 8 OUNCES OF LIQUID AND DRINK BY MOUTH ONCE DAILY fluvoxamine 100 mg tablet 100 mg PO BID Rx Instructions: TAKE ONE TABLET BY MOUTH TWICE DAILY ALONG WITH 50MG TO= 150MG TOTAL pantoprazole 40 mg tablet,delayed release (DR/EC) 40 mg PO DAILY Rx Instructions: TAKE 1 TABLET BY MOUTH DAILY docusate sodium 100 mg capsule 100 mg PO BID Rx Instructions: TAKE ONE CAPSULE BY MOUTH TWICE DAILY fluvoxamine 50 mg tablet 50 mg PO DAILY Rx Instructions: TAKE 1 TABLET BY MOUTH TWICE DAILY ALONG WITH 100MG TO= 150MG TOTAL Discharge Orders: Discharge ED (Routine); Ordered 07/27/24 Ordered By: Omar Alicea Referrals: Ольга Quarles FNP [Primary Care Provider, Family Practice] Discharge Diet: Advance as tolerated Discharge Activity: Resume usual activity Patient Instructions: Head Injury (ED) Print Language: Prydeinig Coding Level of Care Code ED Automation Lead for Lasha Turner
[2024-07-27 06:30] VITALS: BP 116/74; PULSE 97; RESP 17; O2SAT 97
== END 2024-07-27 06:55 | disposition home or self-care (01) ==
PROVIDERS: Emergency Provider Emergency Medicine; PCP Nurse Practitioner Family
DX: S00.03XA Contusion of scalp, initial encounter (principal); W01.190A Fall on same level from slipping, tripping and stumbling with subsequent striking against furniture, initial encounter
CPT/HCPCS: 70450; 99281

== ENCOUNTER → 2024-07-31 14:10 | Outpatient (BNVA) | payer MEDICAID, SELFPAY | PROVIDERS: PCP Nurse Practitioner Family; Visit Provider Nurse Practitioner Family | DX: T18.9XXA Foreign body of alimentary tract, part unspecified, initial encounter (principal); X58.XXXA Exposure to other specified factors, initial encounter | CPT/HCPCS: 74018 ==

== ENCOUNTER → 2024-08-12 10:07 | Outpatient (BNVA) | payer MEDICAID, SELFPAY | PROVIDERS: PCP Nurse Practitioner Family; Visit Provider Podiatrist Foot & Ankle Surgery | DX: S93.491D Sprain of other ligament of right ankle, subsequent encounter (principal); S92.414D Nondisplaced fracture of proximal phalanx of right great toe, subsequent encounter for fracture with routine healing; W19.XXXD Unspecified fall, subsequent encounter | CPT/HCPCS: 73630; 99213 ==

== ENCOUNTER → 2024-08-15 11:58 | Outpatient (BNVA) | payer MEDICAID, SELFPAY | PROVIDERS: PCP Nurse Practitioner Family; Visit Provider Nurse Practitioner Family | DX: R39.9 Unspecified symptoms and signs involving the genitourinary system (principal) | CPT/HCPCS: 74018; 81000 ==

== ENCOUNTER → 2024-09-16 09:49 | Outpatient (BNVA) | payer MEDICAID, SELFPAY | PROVIDERS: PCP Nurse Practitioner Family; Visit Provider Nurse Practitioner Family | DX: J02.9 Acute pharyngitis, unspecified (principal) | CPT/HCPCS: 87071; 87880 ==

== ENCOUNTER → 2024-09-25 12:59 | Outpatient (BNVA) | payer MEDICAID, SELFPAY | PROVIDERS: PCP Nurse Practitioner Family; Visit Provider Nurse Practitioner Family | DX: Z30.09 Encounter for other general counseling and advice on contraception (principal); R30.0 Dysuria | CPT/HCPCS: 81003; 81025; 87086 ==

== ENCOUNTER 2024-10-10 17:52 | Emergency (ER) | payer MEDICAID, SELFPAY ==
[2024-10-10 18:03] VITALS: BP 120/71; PULSE 89; RESP 17; TEMP 36.5; O2SAT 100
--- NOTE | 2024-10-10 19:14 | CTR_ITS ---
PROCEDURE INFORMATION: Exam: CT Head Without Contrast Exam date and time: 10/10/2024 7:30 PM Age: 39 years old Clinical indication: Injury or trauma; Fall; Blunt trauma (contusions or hematomas); Additional info: Fall/head injury TECHNIQUE: Imaging protocol: Computed tomography of the head without contrast. Radiation optimization: All CT scans at this facility use at least one of these dose optimization techniques: automated exposure control; mA and/or kV adjustment per patient size (includes targeted exams where dose is matched to clinical indication); or iterative reconstruction. COMPARISON: CT head wo con* [id number] 07/27/2024 5:43 AM RADIATION DOSE METRICS: Total DLP (mGy-cm): 1077.68 FINDINGS: Brain: No acute infarction, hemorrhage, mass, or extra-axial fluid collection is identified. No midline shift. Cerebral ventricles: No hydrocephalus. Paranasal sinuses: Paranasal sinuses are grossly clear. Mastoid air cells: Mastoid air cells are grossly clear. Bones: Calvarium appears intact. Soft tissues: Subtle right parietal scalp swelling. CT/CT head wo con* [id number] IMPRESSION: No acute intracranial abnormality.
--- NOTE | 2024-10-11 00:03 | ED_ITS ---
HPI - Head Injury General: Chief complaint: Head Injury Stated complaint: Fell hit her head on congrete Time Seen by Provider: 10/10/24 18:41 Source: patient and other (guardian) Mode of arrival: ambulatory Limitations: no limitations History of Present Illness: Patient is a 39-year-old female who presents to the emergency department with a head injury. Reportedly she fell on her backside and then struck her head on the concrete, no loss of consciousness or use of blood thinner. Patient has a guardian, they state that the patient has been acting appropriately and at baseline. She has been ambulatory, no focal neurological deficits. No vomiting or visual changes. Reporting small hematoma to the back of her head. No other injuries from the fall. MD Complaint: head injury Onset (ago): hour(s) Mechanism of Injury: fall Place: home Loss of Consciousness: no Location of injury: occipital Severity: mild Other Injuries: none Associated symptoms: Deny nausea, neck pain or vomiting Related Data Home Medications ?Medication ?Instructions ?Recorded ?Confirmed latanoprost 0.005 % eye drops 1 drp ophthalmic (eye) Q PM 03/17/22 09/16/24 docusate sodium 100 mg capsule 100 mg PO BID 07/02/24 09/16/24 fluvoxamine 100 mg tablet 100 mg PO BID 07/02/2409/16 fluvoxamine 50 mg tablet 50 mg PO DAILY 07/02/2408/21 pantoprazole 40 mg tablet,delayed 40 mg PO DAILY 07/0209/16/24 release Previous Rx's ?Medication ?Instructions ?Recorded magnesium hydroxide 400 mg/5 mL 60 ml PO DAILY PRN con stipation 05/15/23 oral suspension (Milk of Magnesia) #355 mL meloxicam 15 mg tablet 15 mg PO DAILY PRN pain #30 tabs 09/01/23 fluticasone propionate 50 2 spray intranasal DAILY PRN nasal 11/09/23 mcg/actuation nasal congestion/allergy symptoms #16 spray,suspension (Flonase Allergy grams Relief) medroxyprogesterone 150 mg/mL See Rx Instructions .Rou te 02/14/24 intramuscular suspension .COMPLEX #1 mL quetiapine 100 mg tablet 300 mg (3 x 100 mg) PO BEDTI ME #30 06/25/24 tabs levothyroxine 125 mcg tablet See Rx Instructions .Rout e 07/29/24 .COMPLEX #90 tabs nystatin 100,000 unit/gram topical 1 applic topical BI D PRN rash 7 09/25/24 cream days #30 grams sulfamethoxazole 800 1 tab PO BID 7 days #14 tabs 09/25/24 mg-trimethoprim 160 mg tablet (Bactrim DS) divalproex 500 mg tablet,extended 500 mg PO BID #60 ta bs 09/30/24 release 24 hr fluconazole 150 mg tablet 150 mg PO DAILY 1 dose #1 ta b 10/04/24 clonazepam 0.5 mg tablet 0.5 mg PO TID #90 tabs 10/07 polyethylene glycol 3350 17 See Rx Instructions .Route 10/07/24 gram/dose oral powder .COMPLEX #510 grams Allergies Allergy/AdvReac Type Severity Reaction Status Date / Time adhesive Allergy ALGY-Rash Verified 09/25/24 12:17 nitrofurantoin (From Allergy Unknown Verified 09/25/24 12:17 Macrobid) Penicillins Allergy Unknown Verified 09/25/24 12:17 TIDE DETERGENT Allergy Unknown Uncoded 09/25/24 12:17 Review of Systems General: Reports: 10 or more systems reviewed and unremarkable except in HPI and below Const: Reports: other (head injury); Denies: fever(s), chills or fatigue Eyes: Denies: change in vision ENMT: Denies: throat pain, ear or mastoid pain or nasal discharge Card: Denies: chest pain, palpitations, swelling of feet/ankles or lightheadedness Resp: Denies: dyspnea, productive cough or wheezing GI: Denies: abdominal pain, nausea, vomiting, diarrhea or constipation : Denies: flank pain, difficulty voiding, dysuria or urinary frequency Musc: Denies: neck pain, back pain or joint pain Skin/Breast: Denies: rash Neuro: Denies: headache(s), numbness in extremities or weakness in extremities PFSH ED PFSH: Medical History Vitamin D deficiency Depression Seizure disorder Psychiatric care Psychoses Mental disability Constipation Major depressive disorder, recurrent severe without psychotic features Post-traumatic stress disorder, chronic Hypothyroidism Surgical History Hx of bilateral breast reduction surgery H/O esophagogastroduodenoscopy (07/05/20) removal of FB History of cholecystectomy Social History Smoking and tobacco/nicotine status: never used tobacco/nicotine Second hand smoke exposure: No Alcohol intake: never Substance/Drug Use: never Additional social history: Patient states that she grew up in [place]. She is currently living in a [facility] and is under guardianship. She enjoys playing games and eating hamburgers. She is despondent that there is no place i [facility] where she can get a hamburger and does not know how to make one on her own. Caregiver/support person: Yes Lives independently: No Household members: other Details: LIVES IN A CORRECTION Housing: Assisted Living Facility Marital status: Single Current occupational status: disabled Current gender identity: Female Physical Exam Const: COMMON NORMALS: no acute distress, patient oriented x3 and no limitations GENERAL APPEARANCE: cooperative, comfortable and well developed ORIENTATION/CONSCIOUSNESS: Yes awake, Yes oriented to person, Yes oriented to place and Yes oriented to time HENMT: COMMON NORMALS: hearing grossly normal bilaterally OTHER: Small hematoma to right occipital scalp. Negative Peterson sign and no raccoon eyes. No other signs of face head or neck trauma. Eye: COMMON NORMALS: Equal, round and reactive pupils present, EOMs intact bilaterally and conjunctivae normal CONJUNCTIVA: Yes conjunctivae normal PUPIL: Yes Equal, round and reactive pupils present Neck/C-Spine: COMMON NORMALS: full ROM, supple and no JVD Resp: COMMON NORMALS: normal respiratory effort, No retractions, No use of accessory muscles and clear to auscultation bilaterally AUSCULTATION: clear to auscultation bilaterally Cardio: COMMON NORMALS: no JVD, regular rate, regular rhythm, No clicks present (Cardio), No murmurs present (Cardio) and No rub (Cardio) RATE: regular rate RHYTHM: regular rhythm GI: COMMON NORMALS: Normal to inspection, nondistended, normoactive bowel giovani nds present, Soft to palpation and non-tender AUSCULTATION: Yes normoactive bowel sounds PALPATION: Yes Soft to palpation RECTAL EXAM: deferred Extremity: COMMON NORMALS: normal to inspection, full ROM and capillary refill normal Neuro: COMMON NORMALS: patient oriented x3, CN's II-XII intact bilaterally, moves all extremities, no focal motor deficits and no sensory deficits noted SENSORIUM/ORIENTATION: Yes oriented to person, Yes oriented to place and Yes oriented to time Skin: COMMON NORMALS: no rashes or lesions noted GENERAL SKIN EXAM: no rashes or lesions noted Course Vital Signs: Vital signs: Vital Signs Temperature 97.7 F 10/10/24 18:03 Pulse Rate 89 10/10/24 18:03 Respiratory Rate 17 10/10/24 18:03 Blood Pressure 120/71 10/10/24 18:03 Pulse Oximetry 100 10/10/24 18:03 MDM - Head Injury Medcial Decision Making Patient presenting after head injury after she struck her head on concrete. No neurological deficits on exam or with history. There was hematoma on exam, with her age we ordered a CT of her head which was negative for any acute findings. Discharged home with conservative therapy discussed. Return precautions given. Lab Data Radiology Impressions Head CT 10/10/24 19:14 IMPRESSION: No acute intracranial abnormality. All radiology interpretation(s) finalized by discharge Discharge Plan Discharge Patient Disposition: Home Clinical Impression: Fall, CHI (closed head injury) Condition: Stable Prescriptions: No Action sulfamethoxazole-trimethoprim [Bactrim DS] 800-160 mg tablet 1 tab PO BID 7 Days Qty: 14 0RF nystatin 100,000 unit/gram cream 1 applic topical BID PRN (Reason: rash) 7 Days Qty: 30 0RF latanoprost 0.005 % drops 1 drp ophthalmic (eye) QPM magnesium hydroxide [Milk of Magnesia] 400 mg/5 mL suspension 60 ml PO DAILY PRN (Reason: constipation) Qty: 355 3RF meloxicam 15 mg tablet 15 mg PO DAILY PRN (Reason: pain) Qty: 30 2RF Rx Instructions: no ibuprofen on day of meloxicam use fluticasone propionate [Flonase Allergy Relief] 50 mcg/actuation spray,suspension 2 spray intranasal DAILY PRN (Reason: nasal congestion/allergy symptoms) Qty: 16 0RF Rx Instructions: administer into each nostril medroxyprogesterone 150 mg/mL suspension See Rx Instructions .ROUTE .COMPLEX Qty: 1 3RF Dose Instruction: INJECT 1mL INTRAMUSCULARLY ONCE every THREE MONTHS Rx Instructions: INJECT 1mL INTRAMUSCULARLY ONCE every THREE MONTHS quetiapine 100 mg tablet 300 mg PO BEDTIME Qty: 30 2RF levothyroxine 125 mcg tablet See Rx Instructions .ROUTE .COMPLEX Qty: 90 0RF Dose Instruction: TAKE 1 TABLET BY MOUTH EVERY MORNING Rx Instructions: TAKE 1 TABLET BY MOUTH EVERY MORNING divalproex 500 mg tablet extended release 24 hr 500 mg PO BID Qty: 60 2RF fluconazole 150 mg tablet 150 mg PO DAILY Qty: 1 0RF Rx Instructions: administer on day 1 of therapy clonazepam 0.5 mg tablet 0.5 mg PO TID Qty: 90 2RF polyethylene glycol 3350 17 gram/dose powder See Rx Instructions .ROUTE .COMPLEX Qty: 510 3RF Dose Instruction: FILL CAP TO LINE (17 GRAMS), MIX IN 8 OUNCES OF LIQUID AND DRINK BY MOUTH ONCE DAILY Rx Instructions: FILL CAP TO LINE (17 GRAMS), MIX IN 8 OUNCES OF LIQUID AND DRINK BY MOUTH ONCE DAILY fluvoxamine 100 mg tablet 100 mg PO BID Rx Instructions: TAKE ONE TABLET BY MOUTH TWICE DAILY ALONG WITH 50MG TO= 150MG TOTAL pantoprazole 40 mg tablet,delayed release (DR/EC) 40 mg PO DAILY Rx Instructions: TAKE 1 TABLET BY MOUTH DAILY docusate sodium 100 mg capsule 100 mg PO BID Rx Instructions: TAKE ONE CAPSULE BY MOUTH TWICE DAILY fluvoxamine 50 mg tablet 50 mg PO DAILY Rx Instructions: TAKE 1 TABLET BY MOUTH TWICE DAILY ALONG WITH 100MG TO= 150MG TOTAL Discharge Orders: Discharge ED (Routine); Ordered 10/10/24 Ordered By: Scott Claudio Referrals: Ольга Quarles FNP [Primary Care Provider, Family Practice] Patient Instructions: Patient Portal & Willy Instructions Activity Restrictions/Additional Instructions: Tylenol and Motrin at home for pain. Ice to the scalp. Drink plenty of water. Follow-up with primary care as needed. Return with any new or worsening. Print Language: Venezuelan Coding Level of Care Code ED [employer] Access Developer for Lasha Turner
== END 2024-10-10 21:18 | disposition home or self-care (01) ==
PROVIDERS: Emergency Provider Physician Assistant; PCP Nurse Practitioner Family
DX: S09.8XXA Other specified injuries of head, initial encounter (principal); W19.XXXA Unspecified fall, initial encounter
CPT/HCPCS: 70450; 99284

== ENCOUNTER 2024-10-11 13:19 | Emergency (ER) | payer MEDICAID, SELFPAY ==
[2024-10-11 13:22] VITALS: BP 134/77; PULSE 102; RESP 17; TEMP 36.4; O2SAT 100
[2024-10-11] MEDS: diphenhydrAMINE 50 mg/mL SDV 1mL IVP (13:38)
[2024-10-11] MEDS: methylPREDNISolone sod succ 125 mg/2 mL INJ IVP (13:38)
--- NOTE | 2024-10-11 13:57 | ED_ITS ---
HPI - Allergic Reaction General: Chief complaint: Allergic Reaction Stated complaint: possible allergic rxn Time Seen by Provider: 10/11/24 13:21 History of Present Illness: HPI narrative: 39-year-old female [facility] she was eating a frozen dinner of sorts began to have flushing of her face that she had some difficulty breathing. The redness in the face is resolved. No hives. Associated symptoms: Deny abdominal pain Related Data Home Medications ?Medication ?Instructions ?Recorded ?Confirmed latanoprost 0.005 % eye drops 1 drp ophthalmic (eye) Q PM 03/17/22 09/16/24 docusate sodium 100 mg capsule 100 mg PO BID 07/02/24 09/16/24 fluvoxamine 100 mg tablet 100 mg PO BID 07/02/2409/16 fluvoxamine 50 mg tablet 50 mg PO DAILY 07/02/2408/21 pantoprazole 40 mg tablet,delayed 40 mg PO DAILY 07/0209/16/24 release Previous Rx's ?Medication ?Instructions ?Recorded magnesium hydroxide 400 mg/5 mL 60 ml PO DAILY PRN con stipation 05/15/23 oral suspension (Milk of Magnesia) #355 mL meloxicam 15 mg tablet 15 mg PO DAILY PRN pain #30 tabs 09/01/23 fluticasone propionate 50 2 spray intranasal DAILY PRN nasal 11/09/23 mcg/actuation nasal congestion/allergy symptoms #16 spray,suspension (Flonase Allergy grams Relief) medroxyprogesterone 150 mg/mL See Rx Instructions .Rou te 02/14/24 intramuscular suspension .COMPLEX #1 mL quetiapine 100 mg tablet 300 mg (3 x 100 mg) PO BEDTI ME #30 06/25/24 tabs levothyroxine 125 mcg tablet See Rx Instructions .Rout e 07/29/24 .COMPLEX #90 tabs nystatin 100,000 unit/gram topical 1 applic topical BI D PRN rash 7 09/25/24 cream days #30 grams sulfamethoxazole 800 1 tab PO BID 7 days #14 tabs 09/25/24 mg-trimethoprim 160 mg tablet (Bactrim DS) divalproex 500 mg tablet,extended 500 mg PO BID #60 ta bs 09/30/24 release 24 hr fluconazole 150 mg tablet 150 mg PO DAILY 1 dose #1 ta b 10/04/24 clonazepam 0.5 mg tablet 0.5 mg PO TID #90 tabs 10/07 polyethylene glycol 3350 17 See Rx Instructions .Route 10/07/24 gram/dose oral powder .COMPLEX #510 grams Allergies Allergy/AdvReac Type Severity Reaction Status Date / Time adhesive Allergy ALGY-Rash Verified 09/25/24 12:17 nitrofurantoin (From Allergy Unknown Verified 09/25/24 12:17 Macrobid) Penicillins Allergy Unknown Verified 09/25/24 12:17 TIDE DETERGENT Allergy Unknown Uncoded 09/25/24 12:17 Review of Systems Const: Denies: fever(s) or chills Card: Denies: chest pain Resp: Denies: dyspnea GI: Denies: abdominal pain : Denies: dysuria, urinary frequency or urinary urgency Musc: Denies: neck pain or back pain Skin/Breast: Denies: rash PFSH ED PFSH: Medical History Vitamin D deficiency Depression Seizure disorder Psychiatric care Psychoses Mental disability Constipation Major depressive disorder, recurrent severe without psychotic features Post-traumatic stress disorder, chronic Hypothyroidism Surgical History Hx of bilateral breast reduction surgery H/O esophagogastroduodenoscopy (07/05/20) removal of FB History of cholecystectomy Social History Smoking and tobacco/nicotine status: never used tobacco/nicotine Second hand smoke exposure: No Alcohol intake: never Substance/Drug Use: never Additional social history: Patient states that she grew up in [place]. She is currently living in [place] [facility] and is under guardianship. She enjoys playing games and eating hamburgers. She is despondent that there is no place in [place] where she can get a hamburger and does not know how to make one on her own. Caregiver/support person: Yes Lives independently: No Household members: other Details: LIVES IN A HALFWAY Housing: Assisted Living Facility Marital status: Single Current occupational status: disabled Current gender identity: Female Physical Exam Const: COMMON NORMALS: no acute distress GENERAL APPEARANCE: cooperative and comfortable ORIENTATION/CONSCIOUSNESS: Yes awake, Yes oriented to person, Yes oriented to place and Yes oriented to time HENMT: COMMON NORMALS: normocephalic, atraumatic and hearing grossly normal bilaterally HEAD & SCALP: normocephalic and atraumatic Resp: COMMON NORMALS: normal respiratory effort, No retractions, No use of accessory muscles and clear to auscultation bilaterally AUSCULTATION: clear to auscultation bilaterally Cardio: COMMON NORMALS: regular rate, regular rhythm and No murmurs present (Cardio) RATE: regular rate RHYTHM: regular rhythm GI: COMMON NORMALS: Soft to palpation and No hepatosplenomegaly present AUSCULTATION: Yes normoactive bowel sounds PALPATION: Yes Soft to palpation, No Tenderness to palpation present (GI), No Guarding due to palpation present (GI) and Yes No hepatosplenomegaly present Extremity: COMMON NORMALS: normal to inspection, capillary refill normal, no clubbing, cyanosis or edema, no calf tenderness and no pedal edema Neuro: SENSORIUM/ORIENTATION: Yes oriented to person, Yes oriented to place and Yes oriented to time Skin: COMMON NORMALS: no rashes or lesions noted GENERAL SKIN EXAM: no rashes or lesions noted Course Vital Signs: Vital signs: Vital Signs Temperature 97.6 F 10/11/24 13:22 Pulse Rate 100 10/11/24 14:18 Respiratory Rate 17 10/11/24 13:22 Blood Pressure 129/86 10/11/24 14:18 Pulse Oximetry 97 10/11/24 14:18 Oxygen Delivery Me thod Room Air 10/11/24 13:22 MDM - Allergic Reaction Medical Decision Making While eating patient became flushed this is all resolved now she has no stridor no wheezing no urticaria. Will discharge patient home observe can use cetirizine as needed return if is further symptoms Medical Records I reviewed the patient's medical records. Lab Data I reviewed the patient's lab results. No radiology studies performed this visit Discharge Plan Discharge Patient Disposition: Home Clinical Impression: Allergic reaction Condition: Stable Prescriptions: No Action sulfamethoxazole-trimethoprim [Bactrim DS] 800-160 mg tablet 1 tab PO BID 7 Days Qty: 14 0RF nystatin 100,000 unit/gram cream 1 applic topical BID PRN (Reason: rash) 7 Days Qty: 30 0RF latanoprost 0.005 % drops 1 drp ophthalmic (eye) QPM magnesium hydroxide [Milk of Magnesia] 400 mg/5 mL suspension 60 ml PO DAILY PRN (Reason: constipation) Qty: 355 3RF meloxicam 15 mg tablet 15 mg PO DAILY PRN (Reason: pain) Qty: 30 2RF Rx Instructions: no ibuprofen on day of meloxicam use fluticasone propionate [Flonase Allergy Relief] 50 mcg/actuation spray,suspension 2 spray intranasal DAILY PRN (Reason: nasal congestion/allergy symptoms) Qty: 16 0RF Rx Instructions: administer into each nostril medroxyprogesterone 150 mg/mL suspension See Rx Instructions .ROUTE .COMPLEX Qty: 1 3RF Dose Instruction: INJECT 1mL INTRAMUSCULARLY ONCE every THREE MONTHS Rx Instructions: INJECT 1mL INTRAMUSCULARLY ONCE every THREE MONTHS quetiapine 100 mg tablet 300 mg PO BEDTIME Qty: 30 2RF levothyroxine 125 mcg tablet See Rx Instructions .ROUTE .COMPLEX Qty: 90 0RF Dose Instruction: TAKE 1 TABLET BY MOUTH EVERY MORNING Rx Instructions: TAKE 1 TABLET BY MOUTH EVERY MORNING divalproex 500 mg tablet extended release 24 hr 500 mg PO BID Qty: 60 2RF fluconazole 150 mg tablet 150 mg PO DAILY Qty: 1 0RF Rx Instructions: administer on day 1 of therapy clonazepam 0.5 mg tablet 0.5 mg PO TID Qty: 90 2RF polyethylene glycol 3350 17 gram/dose powder See Rx Instructions .ROUTE .COMPLEX Qty: 510 3RF Dose Instruction: FILL CAP TO LINE (17 GRAMS), MIX IN 8 OUNCES OF LIQUID AND DRINK BY MOUTH ONCE DAILY Rx Instructions: FILL CAP TO LINE (17 GRAMS), MIX IN 8 OUNCES OF LIQUID AND DRINK BY MOUTH ONCE DAILY fluvoxamine 100 mg tablet 100 mg PO BID Rx Instructions: TAKE ONE TABLET BY MOUTH TWICE DAILY ALONG WITH 50MG TO= 150MG TOTAL pantoprazole 40 mg tablet,delayed release (DR/EC) 40 mg PO DAILY Rx Instructions: TAKE 1 TABLET BY MOUTH DAILY docusate sodium 100 mg capsule 100 mg PO BID Rx Instructions: TAKE ONE CAPSULE BY MOUTH TWICE DAILY fluvoxamine 50 mg tablet 50 mg PO DAILY Rx Instructions: TAKE 1 TABLET BY MOUTH TWICE DAILY ALONG WITH 100MG TO= 150MG TOTAL Discharge Orders: Discharge ED (Routine); Ordered 10/11/24 Ordered By: Lee Hough Referrals: Ольга Quarles FNP [Primary Care Provider, Family Practice] Discharge Diet: Usual diet Discharge Activity: Resume usual activity Patient Instructions: Opioid Safety, Pain Management, Patient Portal & Willy Instructions Activity Restrictions/Additional Instructions: Thank you for choosing [facility] for your healthcare needs today. It is very important that you follow up as instructed or that you return to the [facility] should you have concerns or if your condition changes or worsens in any way. You were seen in the emergency room for reaction to food. Your exam was normal. You are given steroids and Benadryl in the emergency room monitor for now you can use Benadryl [id number] as needed. Print Language: Ukrainian Coding Level of Care Code ED Inventory Clerk for Lasha Turner
[2024-10-11 14:18] VITALS: BP 129/86; PULSE 100; O2SAT 97
== END 2024-10-11 14:24 | disposition home or self-care (01) ==
PROVIDERS: Emergency Provider Family Medicine; PCP Nurse Practitioner Family
DX: T78.40XA Allergy, unspecified, initial encounter (principal); X58.XXXA Exposure to other specified factors, initial encounter
CPT/HCPCS: 36415; 96374; 96375; 99284; J1200; J2919

== ENCOUNTER 2024-12-09 11:11 | Emergency (ER) | payer MEDICAID, SELFPAY ==
[2024-12-09 11:20] VITALS: BP 110/85; PULSE 88; RESP 18; TEMP 36.4; O2SAT 95; BMI 34.9
--- NOTE | 2024-12-09 12:36 | CT_ITS ---
WS: [id number] CT CERVICAL TRAUMA TECHNIQUE: Noncontrast CT of the cervical spine with coronal and sagittal reformatted images. CLINICAL INFORMATION: fall, neck pain COMPARISON: 07/02/2024 DLP: 1311.[address] scans at [facility] use at least one of these dose optimization techniques: automated exposure control; mA and/or kV adjustment per patient size (includes targeted exams where dose is matched to clinical indication); or iterative reconstruction. FINDINGS: Cervical curve convex RIGHT. Normal craniocervical junction. Normal C1-C2 articulation. Dens is normal in appearance. Normal occipital condyles. No high- grade spinal canal narrowing. Normal C1 ring. No evidence of acute fracture or dislocation. Normal prevertebral soft tissues. Mastoids air cells are well aerated. CT/CT cervical spin wo con* [id number] IMPRESSION: No evidence of acute fracture or dislocation.
--- NOTE | 2024-12-09 12:36 | CT_ITS ---
WS: [id number] CT HEAD TECHNIQUE: Noncontrast CT of the head obtained from the skullbase to the vertex. CLINICAL INFORMATION: fall, head injury COMPARISON: 10/10/2024 DLP: 1311.[address] scans at [facility] use at least one of these dose optimization techniques: automated exposure control; mA and/or kV adjustment per patient size (includes targeted exams where dose is matched to clinical indication); or iterative reconstruction. FINDINGS: No evidence of intracranial hemorrhage or mass effect. Ventricular system and basal cisterns are patent. No extra-axial fluid collections. No evidence of mass or mass effect. Normal ramey-white differentiation. Paranasal sinuses and mastoid air cells are well aerated. .Normal visualized soft tissues. CT/CT head wo con* [id number] IMPRESSION: 1. No evidence of intracranial hemorrhage or mass effect. 2. No acute intracranial findings.
--- NOTE | 2024-12-09 18:09 | W.ED.HEATRA ---
HPI - Head Injury General: Chief complaint: Head Injury Stated complaint: fell Hit head Time Seen by Provider: 12/09/24 14:38 Source: patient and other (Guardian) Mode of arrival: ambulatory Limitations: no limitations History of Present Illness: Patient is a 39-year-old female who presents to the emergency department after a head injury. She fell, presents with caregiver as she lives at a long-term. Did not lose consciousness, has had no nausea or vomiting, no dizziness, no seizure-like activity. History of similar in the past. Fall occurred because she tripped. No use of blood thinner. No sign of outward injury. She states that she struck the back of her head. Has been ambulatory since this occurred. Complaint: head injury Place: home Loss of Consciousness: no Location of injury: occipital Severity: mild Other Injuries: none Associated symptoms: Deny nausea, neck pain or vomiting Related Data Home Medications ?Medication ?Instructions ?Recorded ?Confirmed latanoprost 0.005 % eye drops 1 drp ophthalmic (eye) QPM 03/17/22 12/02/24 docusate sodium 100 mg capsule 100 mg PO BID 07/02/24 12/02/24 Previous Rx's ?Medication ?Instructions ?Recorded magnesium hydroxide 400 mg/5 mL 60 ml PO DAILY PRN constipation 05/15/23 oral suspension (Milk of Magnesia) #355 mL fluticasone propionate 50 2 spray intranasal DAILY PRN nasal 11/09/23 mcg/actuation nasal congestion/allergy symptoms #16 spray,suspension (Flonase Allergy grams Relief) medroxyprogesterone 150 mg/mL See Rx Instructions .Route 02/14/24 intramuscular suspension .COMPLEX #1 mL nystatin 100,000 unit/gram topical 1 applic topical BID PRN rash 7 09/25/24 cream days #30 grams fluconazole 150 mg tablet 150 mg PO DAILY 1 dose #1 tab 10/04/24 polyethylene glycol 3350 17 See Rx Instructions .Route 10/07/24 gram/dose oral powder .COMPLEX #510 grams clonazepam 0.5 mg tablet 0.5 mg PO TID #90 tabs 11/28/24 divalproex 500 mg tablet,extended 500 mg PO BID #60 tabs 11/28/24 release 24 hr fluvoxamine 100 mg tablet 100 mg PO BID #60 tabs 11/28/24 fluvoxamine 50 mg tablet 50 mg PO DAILY #30 tabs 11/28/24 levothyroxine 125 mcg tablet See Rx Instructions .Route 11/28/24 .COMPLEX #90 tabs meloxicam 15 mg tablet 15 mg PO DAILY PRN pain #30 tabs 11/28/24 pantoprazole 40 mg tablet,delayed 40 mg PO DAILY #90 tabs 11/28/24 release quetiapine 100 mg tablet 300 mg (3 x 100 mg) PO BEDTIME #30 11/28/24 tabs Allergies Allergy/AdvReac Type Severity Reaction Status Date / Time adhesive Allergy ALGY-Rash Verified 12/02/24 09:22 nitrofurantoin (From Allergy Unknown Verified 12/02/24 09:22 Macrobid) Penicillins Allergy Unknown Verified 12/02/24 09:22 TIDE DETERGENT Allergy Unknown Uncoded 12/02/24 09:22 Review of Systems General: Reports: 10 or more systems reviewed and unremarkable except in HPI and below Const: Reports: other (Fall/head injury); Denies: fever(s), chills or fatigue Eyes: Denies: change in vision ENMT: Denies: throat pain, ear or mastoid pain or nasal discharge Card: Denies: chest pain, palpitations, swelling of feet/ankles or lightheadedness Resp: Denies: dyspnea, productive cough or wheezing GI: Denies: abdominal pain, nausea, vomiting, diarrhea or constipation : Denies: flank pain, difficulty voiding, dysuria or urinary frequency Musc: Denies: neck pain, back pain or joint pain Skin/Breast: Denies: rash Neuro: Denies: headache(s), numbness in extremities or weakness in extremities PFSH ED PFSH: Medical History Vitamin D deficiency Depression Seizure disorder Psychiatric care Psychoses Mental disability Constipation Major depressive disorder, recurrent severe without psychotic features Post-traumatic stress disorder, chronic Hypothyroidism Surgical History Hx of bilateral breast reduction surgery H/O esophagogastroduodenoscopy (07/05/20) removal of FB History of cholecystectomy Social History Smoking and tobacco/nicotine status: never used tobacco/nicotine Second hand smoke exposure: No Alcohol intake: never Substance/Drug Use: never Additional social history: Patient states that she grew up in [place]. She is currently living in a long-term and is under guardianship. She enjoys playing games and eating hamburgers. She is despondent that there is no place in [place] where she can get a hamburger and does not know how to make one on her own. Caregiver/support person: Yes Lives independently: No Household members: other Details: LIVES IN A [facility] Housing: Assisted Living Facility Marital status: Single Current occupational status: disabled Current gender identity: Female Physical Exam Const: COMMON NORMALS: no acute distress, patient oriented x3 and no limitations GENERAL APPEARANCE: cooperative, comfortable and well developed ORIENTATION/CONSCIOUSNESS: Yes awake, Yes oriented to person, Yes oriented to place and Yes oriented to time HENMT: COMMON NORMALS: normocephalic, atraumatic and hearing grossly normal bilaterally HEAD & SCALP: normocephalic and atraumatic; no Peterson's sign, no palpable skull fracture, no raccoon eyes and no scalp tenderness Eye: COMMON NORMALS: Equal, round and reactive pupils present, EOMs intact bilaterally and conjunctivae normal CONJUNCTIVA: Yes conjunctivae normal PUPIL: Yes Equal, round and reactive pupils present Neck/C-Spine: COMMON NORMALS: full ROM, supple and no JVD Resp: COMMON NORMALS: normal respiratory effort, No retractions, No use of accessory muscles and clear to auscultation bilaterally AUSCULTATION: clear to auscultation bilaterally Cardio: COMMON NORMALS: no JVD, regular rate, regular rhythm, No clicks present (Cardio), No murmurs present (Cardio) and No rub (Cardio) RATE: regular rate RHYTHM: regular rhythm Extremity: COMMON NORMALS: normal to inspection, full ROM and capillary refill normal Neuro: COMMON NORMALS: patient oriented x3, CN's II-XII intact bilaterally, moves all extremities, no focal motor deficits and no sensory deficits noted SENSORIUM/ORIENTATION: Yes oriented to person, Yes oriented to place and Yes oriented to time Skin: COMMON NORMALS: no rashes or lesions noted GENERAL SKIN EXAM: no rashes or lesions noted Course Vital Signs: Vital signs: Vital Signs Temperature 97.5 F L 12/09/24 11:20 Pulse Rate 88 12/09/24 11:20 Respiratory Rate 18 12/09/24 11:20 Blood Pressure 110/85 12/09/24 11:20 Pulse Oximetry 95 12/09/24 11:20 Oxygen Delivery Me thod Room Air 12/09/24 11:20 MDM - Head Injury Medcial Decision Making Patient presenting after closed head injury as she excellently tripped and fell. Notes of blood thinners. No neurological deficit on exam, physical exam overall is unremarkable. Suspect close head injury, without concussion. She is stable for discharge home with symptomatic treatment. Lab Data Radiology Impressions Cervical Spine CT 12/09/24 12:36 IMPRESSION: No evidence of acute fracture or dislocation. Head CT 12/09/24 12:36 IMPRESSION: 1. No evidence of intracranial hemorrhage or mass effect. 2. No acute intracranial findings. All radiology interpretation(s) finalized by discharge Discharge Plan Discharge Patient Disposition: Home Clinical Impression: Closed head injury Condition: Stable Prescriptions: No Action nystatin 100,000 unit/gram cream 1 applic topical BID PRN (Reason: rash) 7 Days Qty: 30 0RF latanoprost 0.005 % drops 1 drp ophthalmic (eye) QPM magnesium hydroxide [Milk of Magnesia] 400 mg/5 mL suspension 60 ml PO DAILY PRN (Reason: constipation) Qty: 355 3RF fluticasone propionate [Flonase Allergy Relief] 50 mcg/actuation spray,suspension 2 spray intranasal DAILY PRN (Reason: nasal congestion/allergy symptoms) Qty: 16 0RF Rx Instructions: administer into each nostril medroxyprogesterone 150 mg/mL suspension See Rx Instructions .ROUTE .COMPLEX Qty: 1 3RF Dose Instruction: INJECT 1mL INTRAMUSCULARLY ONCE every THREE MONTHS Rx Instructions: INJECT 1mL INTRAMUSCULARLY ONCE every THREE MONTHS fluconazole 150 mg tablet 150 mg PO DAILY Qty: 1 0RF Rx Instructions: administer on day 1 of therapy polyethylene glycol 3350 17 gram/dose powder See Rx Instructions .ROUTE .COMPLEX Qty: 510 3RF Dose Instruction: FILL CAP TO LINE (17 GRAMS), MIX IN 8 OUNCES OF LIQUID AND DRINK BY MOUTH ONCE DAILY Rx Instructions: FILL CAP TO LINE (17 GRAMS), MIX IN 8 OUNCES OF LIQUID AND DRINK BY MOUTH ONCE DAILY fluvoxamine 100 mg tablet 100 mg PO BID Qty: 60 2RF Rx Instructions: TAKE ONE TABLET BY MOUTH TWICE DAILY ALONG WITH 50MG TO= 150MG TOTAL divalproex 500 mg tablet extended release 24 hr 500 mg PO BID Qty: 60 2RF fluvoxamine 50 mg tablet 50 mg PO DAILY Qty: 30 2RF Rx Instructions: TAKE 1 TABLET BY MOUTH TWICE DAILY ALONG WITH 100MG TO= 150MG TOTAL clonazepam 0.5 mg tablet 0.5 mg PO TID Qty: 90 2RF quetiapine 100 mg tablet 300 mg PO BEDTIME Qty: 30 2RF pantoprazole 40 mg tablet,delayed release (DR/EC) 40 mg PO DAILY Qty: 90 0RF Rx Instructions: TAKE 1 TABLET BY MOUTH DAILY levothyroxine 125 mcg tablet See Rx Instructions .ROUTE .COMPLEX Qty: 90 0RF Dose Instruction: TAKE 1 TABLET BY MOUTH EVERY MORNING Rx Instructions: TAKE 1 TABLET BY MOUTH EVERY MORNING meloxicam 15 mg tablet 15 mg PO DAILY PRN (Reason: pain) Qty: 30 2RF Rx Instructions: no ibuprofen on day of meloxicam use docusate sodium 100 mg capsule 100 mg PO BID Rx Instructions: TAKE ONE CAPSULE BY MOUTH TWICE DAILY Discharge Orders: Discharge ED (Routine); Ordered 12/09/24 Ordered By: Scott Claudio Referrals: Ольга Quarles FNP [Primary Care Provider, Family Practice] Patient Instructions: Patient Portal & Willy Instructions Activity Restrictions/Additional Instructions: Head Injury Discharge Instructions You have been diagnosed with a closed head injury. Your CT scans of the head and neck were normal, and you do not have a concussion. Most people recover well after this type of injury, but it is important to follow these instructions to help ensure your safety and recovery. What to Expect: - You may have mild headache, tiredness, or soreness for a few days. These symptoms usually improve with rest. - Some people recover quickly, but others may notice symptoms later. If you feel worse or develop new problems, please seek help. For the Next 24 Hours: - Stay with a responsible adult who can help you and watch for any changes in your condition. - Rest and avoid strenuous activities. Light activity is okay if you feel up to it, but stop if symptoms worsen. Warning Signs?Call or Return to the Emergency Department Immediately if You Have: - Repeated vomiting - Severe or worsening headache - Trouble waking up or staying awake - Confusion, slurred speech, or trouble recognizing people - Weakness, numbness, or trouble moving arms or legs - Seizures (shaking or jerking movements) - Clear fluid or blood coming from your nose or ears - Vision changes or new dizziness Recovery and Return to Activities: - Most people can return to work, school, and regular activities gradually. If you feel well, you may resume normal activities, but take breaks as needed. - Avoid sports or activities with a risk of another head injury until cleared by your doctor. - If you drive, do so only when you feel alert and have no symptoms that could affect your ability to drive safely. Managing Symptoms: - Use acetaminophen (Tylenol) for headache. Avoid aspirin or ibuprofen unless your doctor says it is safe. - Get plenty of sleep and maintain good sleep habits. If you have trouble sleeping, let your doctor know. - If you feel anxious or sad, or if symptoms persist for more than a few weeks, contact your healthcare provider for support. Follow-Up: - If you have ongoing symptoms, trouble with memory, mood, or headaches, schedule a follow-up appointment with your doctor. - If you take blood thinners or have other health concerns, discuss fall risk and medication safety with your doctor. Support: - If you need more information or help, contact your healthcare provider or local support organizations for brain injury. Take care and let your healthcare team know if you have any questions or concerns. Print Language: Sierra Leonean Coding Level of Care Code ED Electric Range Assembler for Lasha Turner
== END 2024-12-09 15:02 | disposition home or self-care (01) ==
PROVIDERS: Emergency Provider Physician Assistant; PCP Nurse Practitioner Family
DX: S09.8XXA Other specified injuries of head, initial encounter (principal); W01.0XXA Fall on same level from slipping, tripping and stumbling without subsequent striking against object, initial encounter
CPT/HCPCS: 70450; 72125; 99284

== ENCOUNTER → 2025-02-04 13:25 | Outpatient (BNVA) | payer MEDICAID, SELFPAY | PROVIDERS: PCP Nurse Practitioner Family; Visit Provider Nurse Practitioner Family | DX: R30.0 Dysuria (principal); N39.0 Urinary tract infection, site not specified | CPT/HCPCS: 81000; 87086 ==

== ENCOUNTER 2025-02-11 09:27 | Emergency (ER) | payer MEDICAID, SELFPAY ==
[2025-02-11 09:33] VITALS: BP 110/67; PULSE 100; RESP 16; TEMP 36.7; O2SAT 99
--- NOTE | 2025-02-11 09:38 | ED_ITS ---
HPI - Fall General: Chief Complaint: Fall Stated Complaint: fall- hit chin and back of head Time Seen by Provider: 02/11/25 09:38 History of Present Illness: 40-year-old man with a history of depres amie, seizure disorder, mental disability, constipation, PTSD and hypothyroidism who presents emergency room after having had a fall. She lost her balance and hit her chin and the back of her head. This is on concrete. No loss of consciousness. Unclear how she hit both the back of her head and her chin. No nausea or vomiting. No altered mental status. Related Data Home Medications ?Medication ?Instructions ?Recorded ?Confirmed latanoprost 0.005 % eye drops 1 drp ophthalmic (eye) Q PM 03/17/22 02/11/25 docusate sodium 100 mg capsule 100 mg PO BID 07/02/24 02/11/25 acetaminophen 325 mg tablet 650 mg PO Q6H PRN fever>10 0.4/Pain 02/11/25 02/11/25 dextromethorphan-guaifenesin 10 10 ml PO Q6H PRN Cough 02/11/25 02/11/25 mg-200 mg/5 mL oral liquid (Tussin DM Max) fluvoxamine 50 mg tablet 50 mg PO BID 02/11/25 haloperidol 5 mg tablet 5 mg PO DAILY PRN severe agg itation 02/11/25 02/11/25 levothyroxine 125 mcg tablet 1,125 mcg PO QAM 02/11/25 02/11/25 quetiapine 300 mg tablet 300 mg PO BEDTIME 02/11/25 1 04/14/24 Previous Rx's ?Medication ?Instructions ?Recorded magnesium hydroxide 400 mg/5 mL 60 ml PO DAILY PRN con stipation 05/15/23 oral suspension (Milk of Magnesia) #355 mL medroxyprogesterone 150 mg/mL See Rx Instructions .Rou te 02/14/24 intramuscular suspension .COMPLEX #1 mL clonazepam 0.5 mg tablet 0.5 mg PO TID #90 tabs 11/28 divalproex 500 mg tablet,extended 500 mg PO BID #60 ta bs 11/28/24 release 24 hr fluvoxamine 100 mg tablet 100 mg PO BID #60 tabs 11/28 meloxicam 15 mg tablet 15 mg PO DAILY PRN pain #30 tabs 11/28/24 pantoprazole 40 mg tablet,delayed 40 mg PO DAILY #90 t abs 11/28/24 release polyethylene glycol 3350 17 See Rx Instructions .Route 12/26/24 gram/dose oral powder .COMPLEX #510 grams fluticasone propionate 50 See Rx Instructions .Route 1 03/07/24 mcg/actuation nasal .COMPLEX #16 grams spray,suspension Allergies Allergy/AdvReac Type Severity Reaction Status Date / Time adhesive Allergy ALGY-Rash Verified 02/03/25 11:48 nitrofurantoin (From Allergy Unknown Verified 02/03/25 11:48 Macrobid) Penicillins Allergy Unknown Verified 02/03/25 11:48 TIDE DETERGENT Allergy Unknown Uncoded 02/03/25 11:48 Review of Systems Narrative: Constitutional symptoms: Negative except as documented in HPI. Skin symptoms: Negative except as documented in HPI. Eye symptoms: Negative except as documented in HPI. ENMT symptoms: Negative except as documented in HPI. Respiratory symptoms: Negative except as documented in HPI. Cardiovascular symptoms: Negative except as documented in HPI. Gastrointestinal symptoms: Negative except as documented in HPI. Genitourinary symptoms: Negative except as documented in HPI. Musculoskeletal symptoms: Negative except as documented in HPI. Neurologic symptoms: Negative except as documented in HPI. Psychiatric symptoms: Negative except as documented in HPI. Endocrine symptoms: Negative except as documented in HPI. PFSH ED PFSH: Medical History (Updated 02/11/25 @ 11:52 by Paty Garcia MD) Vitamin D deficiency Depression Seizure disorder Psychiatric care Psychoses Mental disability Constipation Major depressive disorder, recurrent severe without psychotic features Post-traumatic stress disorder, chronic Hypothyroidism Surgical History Hx of bilateral breast reduction surgery H/O esophagogastroduodenoscopy (07/05/20) removal of FB History of cholecystectomy Social History Smoking and tobacco/nicotine status: never used tobacco/nicotine Second hand smoke exposure: No Alcohol intake: never Substance/Drug Use: never Additional social history: Patient states that she grew up in [place]. She is currently living in a intermediate and is under guardianship. She enjoys playing games and eating hamburgers. She is despondent that there is no place in [place] where she can get a hamburger and does not know how to make one on her own. Caregiver/support person: Yes Lives independently: No Household members: other Details: LIVES IN A SENIOR CARE Housing: Assisted Living Facility Marital status: Single Current occupational status: disabled Current gender identity: Female Physical Exam Narrative: EXAM NARRATIVE: General: Alert, no acute distress. Skin: Warm, dry. Head: Normocephalic, atraumatic. Neck: Supple, trachea midline. Eye: Extraocular movements are intact. Ears, nose, mouth and throat: mucosa moist. Cardiovascular: Regular, Normal peripheral perfusion. Respiratory: Lungs are clear to auscultation, respirations are non-labored, breath sounds are equal, Symmetrical chest wall expansion. Gastrointestinal: Soft, Nontender, Non distended Musculoskeletal: Normal ROM, no deformity. Neurological: Alert and oriented, No focal neurological deficit observed. Psychiatric: Cooperative, appropriate mood & affect. Course Vital Signs: Vital signs: Vital Signs Temperature 98.0 F 02/11/25 09:33 Pulse Rate 100 02/11/25 09:33 Respiratory Rate 16 02/11/25 09:33 Blood Pressure 110/67 02/11/25 09:33 Pulse Oximetry 99 02/11/25 09:33 Oxygen Delivery Me thod Room Air 02/11/25 09:33 MDM - Fall Medical Decision Making Medical decision making Patient's reason for coming to the emergency room: Fall with a head injury Social determinants: Patient is electively disabled. She lives in a intermediate. I reviewed the patient's medical record. 40-year-old man with a history of depression, seizure disorder, mental disability, constipation, PTSD and hypothyroidism I reviewed the patient's current home meds No anticoagulation Alternate historians: Staff from the intermediate accompanies the patient Differential diagnosis including but not limited to and based on the above HPI, review of systems and physical exam: patient with fall and head injury. Subdural hematoma, subarachnoid hemorrhage, concussion, skull fracture. Orders placed to evaluate differential diagnosis based on the above differential, HPI and physical exam CT scan of the head was ordered. CT head: No acute intracranial process. No intracranial hemorrhage, no evidence of infarct. No evidence of acute fracture. This was reviewed and interpreted by myself the emergency room physician. I also reviewed the radiology report. Reexamination: Patient remained stable. No increased work of breathing. No altered mental status. No focal motor deficits. Assessment and plan: Head injury - Discharged home - Discussed plan with patient. Answered any questions. - Evaluation and treatment of this problem were appropriate in the emergency setting. Lab Data Radiology Impressions Head CT 02/11/25 09:49 IMPRESSION: 1. No acute intracranial hemorrhage or edema. 2. Mild cerebral atrophy and small vessel disease. All radiology interpretation(s) finalized by discharge Discharge Plan Discharge Patient Disposition: Home Clinical Impression: Fall, Head injury Condition: Stable Prescriptions: No Action latanoprost 0.005 % drops 1 drp ophthalmic (eye) QPM magnesium hydroxide [Milk of Magnesia] 400 mg/5 mL suspension 60 ml PO DAILY PRN (Reason: constipation) Qty: 355 3RF medroxyprogesterone 150 mg/mL suspension See Rx Instructions .ROUTE .COMPLEX Qty: 1 3RF Dose Instruction: INJECT 1mL INTRAMUSCULARLY ONCE every THREE MONTHS Rx Instructions: INJECT 1mL INTRAMUSCULARLY ONCE every THREE MONTHS fluvoxamine 100 mg tablet 100 mg PO BID Qty: 60 2RF Rx Instructions: ALONG WITH 50MG TO= 150MG TOTAL divalproex 500 mg tablet extended release 24 hr 500 mg PO BID Qty: 60 2RF clonazepam 0.5 mg tablet 0.5 mg PO TID Qty: 90 2RF pantoprazole 40 mg tablet,delayed release (DR/EC) 40 mg PO DAILY Qty: 90 0RF meloxicam 15 mg tablet 15 mg PO DAILY PRN (Reason: pain) Qty: 30 2RF Rx Instructions: no ibuprofen on day of meloxicam use polyethylene glycol 3350 17 gram/dose powder See Rx Instructions .ROUTE .COMPLEX Qty: 510 3RF Dose Instruction: FILL CAP TO LINE (17 GRAMS), MIX IN 8 OUNCES OF LIQUID AND DRINK BY MOUTH ONCE DAILY Rx Instructions: FILL CAP TO LINE (17 GRAMS), MIX IN 8 OUNCES OF LIQUID AND DRINK BY MOUTH ONCE DAILY fluticasone propionate 50 mcg/actuation spray,suspension See Rx Instructions .ROUTE .COMPLEX Qty: 16 5RF Dose Instruction: INHALE TWO PUFFS IN EACH NOSTRIL NEEDED FOR nasal congestion/allergy symptoms Rx Instructions: INHALE TWO PUFFS IN EACH NOSTRIL NEEDED FOR nasal congestion/allergy symptoms haloperidol 5 mg tablet 5 mg PO DAILY PRN (Reason: severe aggitation) dextromethorphan-guaifenesin [Tussin DM Max] 10-200 mg/5 mL Liquid 10 ml PO Q6H PRN (Reason: Cough) levothyroxine 125 mcg tablet 1,125 mcg PO QAM fluvoxamine 50 mg tablet 50 mg PO BID Rx Instructions: ALONG WITH 100MG TO= 150MG TOTAL quetiapine 300 mg Tablet 300 mg PO BEDTIME acetaminophen 325 mg tablet 650 mg PO Q6H PRN (Reason: fever>100.4/Pain) Rx Instructions: not TO exceed 4,000mg in 24 hours. docusate sodium 100 mg capsule 100 mg PO BID Discharge Orders: Discharge ED (Routine); Ordered 02/11/25 Ordered By: Paty Garcia Referrals: Ольга Quarles FNP [Primary Care Provider, Family Practice] Discharge Diet: Usual diet Discharge Activity: Increase activity as tolerated Patient Instructions: Head Injury (ED), Fall Prevention (ED), Opioid Safety, Pain Management, Patient Portal & Willy Instructions Activity Restrictions/Additional Instructions: Thank you for choosing [facility] for your healthcare needs today. You have been screened and evaluated and felt safe for discharge. Health conditions do change or evolve sometimes and as such it is important that you follow up with your Primary Doctor to be re checked, 3-5 days is a general good time frame for follow up. You are always welcome to return to the ED for re assessment if your symptoms are worsening or you have new concerns. (Please note that included in your discharge packet is information concerning opioid safety and pain management. This information is given to all patients who are discharged from the ER regardless of their discharge diagnosis or the medicines they usually take or are prescribed.) Print Language: Tanzanian Coding Level of Care Code ED Director Of Marketing And Promotions for Lasha Turner
--- NOTE | 2025-02-11 09:49 | CT_ITS ---
WS: [id number] CT HEAD NONCONTRAST HISTORY: fall, head injury TECHNIQUE: Contiguous axial imaging performed through the brain. Bone and soft tissue windows. Sagittal and coronal reformats reviewed. All CT scans at [facility] use at least one of these dose optimization techniques: automated exposure control; mA and/or kV adjustment per patient size (includes targeted exams where dose is matched to clinical indication); or iterative reconstruction. DLP: 1100.48 mGy.cm COMPARISON: 12/09/2024 No acute intracranial hemorrhage, midline shift or mass effect. Mild atrophy and small vessel disease. Ventricles: Normal size with no hydrocephalus. No inferior displacement of cerebellar tonsils. Paranasal sinuses: As visualized are clear. Mastoid air cells: Well pneumatized. Calvarium and scalp: Hyperostosis frontalis interna. No fracture. CT/CT head wo con* [id number] IMPRESSION: 1. No acute intracranial hemorrhage or edema. 2. Mild cerebral atrophy and small vessel disease.
--- NOTE | 2025-02-11 09:55 | PC.PHAR ---
Pt is from [facility]
== END 2025-02-11 12:10 | disposition home or self-care (01) ==
PROVIDERS: Emergency Provider Emergency Medicine; PCP Nurse Practitioner Family
DX: S09.90XA Unspecified injury of head, initial encounter (principal); W19.XXXA Unspecified fall, initial encounter
CPT/HCPCS: 70450; 99284

== ENCOUNTER 2025-02-18 08:50 | Emergency (ER) | payer MEDICAID, SELFPAY ==
[2025-02-18 09:04] VITALS: BP 131/75; PULSE 100; RESP 18; TEMP 36.7; O2SAT 100
--- NOTE | 2025-02-18 09:04 | ED_ITS ---
HPI - Fall General: Chief Complaint: Fall Stated Complaint: fell and hit head Time Seen by Provider: 02/18/25 09:02 Source: patient Mode of arrival: ambulatory Limitations: no limitations History of Present Illness: 40-year-old female who is here due to harris vikig multiple falls states she had a fall this morning and hit her posterior head she has a mild headache she denies any loss of conscious denies any vomiting. This happened roughly 1 hour ago. Patient denies any other injury she is ambulatory here. Associated symptoms-after fall: Reports headache(s) Related Data Home Medications ?Medication ?Instructions ?Recorded ?Confirmed latanoprost 0.005 % eye drops 1 drp ophthalmic (eye) Q PM 03/17/22 02/11/25 docusate sodium 100 mg capsule 100 mg PO BID 07/02/24 02/11/25 acetaminophen 325 mg tablet 650 mg PO Q6H PRN fever>10 0.4/Pain 02/11/25 02/11/25 dextromethorphan-guaifenesin 10 10 ml PO Q6H PRN Cough 02/11/25 02/11/25 mg-200 mg/5 mL oral liquid (Tussin DM Max) fluvoxamine 50 mg tablet 50 mg PO BID 02/11/25 haloperidol 5 mg tablet 5 mg PO DAILY PRN severe agg itation 02/11/25 02/11/25 levothyroxine 125 mcg tablet 1,125 mcg PO QAM 02/11/25 02/11/25 quetiapine 300 mg tablet 300 mg PO BEDTIME 02/11/25 1 04/14/24 Previous Rx's ?Medication ?Instructions ?Recorded magnesium hydroxide 400 mg/5 mL 60 ml PO DAILY PRN con stipation 05/15/23 oral suspension (Milk of Magnesia) #355 mL medroxyprogesterone 150 mg/mL See Rx Instructions .Rou te 02/14/24 intramuscular suspension .COMPLEX #1 mL clonazepam 0.5 mg tablet 0.5 mg PO TID #90 tabs 11/28 divalproex 500 mg tablet,extended 500 mg PO BID #60 ta bs 11/28/24 release 24 hr fluvoxamine 100 mg tablet 100 mg PO BID #60 tabs 11/28 meloxicam 15 mg tablet 15 mg PO DAILY PRN pain #30 tabs 11/28/24 pantoprazole 40 mg tablet,delayed 40 mg PO DAILY #90 t abs 11/28/24 release polyethylene glycol 3350 17 See Rx Instructions .Route 12/26/24 gram/dose oral powder .COMPLEX #510 grams fluticasone propionate 50 See Rx Instructions .Route 1 03/07/24 mcg/actuation nasal .COMPLEX #16 grams spray,suspension Allergies Allergy/AdvReac Type Severity Reaction Status Date / Time adhesive Allergy ALGY-Rash Verified 02/03/25 11:48 nitrofurantoin (From Allergy Unknown Verified 02/03/25 11:48 Macrobid) Penicillins Allergy Unknown Verified 02/03/25 11:48 TIDE DETERGENT Allergy Unknown Uncoded 02/03/25 11:48 Review of Systems Neuro: Reports: headache(s) PFSH ED PFSH: Medical History Falls frequently Vitamin D deficiency Depression Seizure disorder Psychiatric care Psychoses Mental disability Constipation Major depressive disorder, recurrent severe without psychotic features Post-traumatic stress disorder, chronic Hypothyroidism Surgical History Hx of bilateral breast reduction surgery H/O esophagogastroduodenoscopy (07/05/20) removal of FB History of cholecystectomy Social History Smoking and tobacco/nicotine status: never used tobacco/nicotine Second hand smoke exposure: No Alcohol intake: never Substance/Drug Use: never Additional social history: Patient states that she grew up in [place]. She is currently living in a long-term and is under guardianship. She enjoys playing games and eating hamburgers. She is despondent that there is no place in [place] where she can get a hamburger and does not know how to make one on her own. Caregiver/support person: Yes Lives independently: No Household members: other Details: LIVES IN A CARE HOME Housing: Assisted Living Facility Marital status: Single Current occupational status: disabled Current gender identity: Female Physical Exam Const: COMMON NORMALS: no acute distress, patient oriented x3 and healthy appearing HENMT: COMMON NORMALS: normocephalic HEAD & SCALP: normocephalic OTHER: Tenderness to posterior scalp no laceration no hematoma Eye: COMMON NORMALS: Equal, round and reactive pupils present and EOMs intact bilaterally PUPIL: Yes Equal, round and reactive pupils present Neck/C-Spine: COMMON NORMALS: full ROM and supple CERVICAL SPINE: No pain with cervical ROM and No Cervical spine tenderness Chest: COMMONS NORMALS: normal inspection of the chest Resp: COMMON NORMALS: normal respiratory effort Cardio: COMMON NORMALS: regular rate RATE: regular rate Extremity: COMMON NORMALS: normal to inspection and full ROM Neuro: COMMON NORMALS: patient oriented x3, moves all extremities and no focal motor deficits Psych: COMMON NORMALS: mental status grossly normal, Normal thought process present and cooperative THOUGHT PROCESS: Normal thought process present Skin: COMMON NORMALS: no rashes or lesions noted and no wounds GENERAL SKIN EXAM: no rashes or lesions noted Course Vital Signs: Vital signs: Vital Signs Temperature 98.1 F 02/18/25 09:04 Pulse Rate 100 02/18/25 09:04 Respiratory Rate 18 02/18/25 09:11 Blood Pressure 131/75 02/18/25 09:04 Pulse Oximetry 98 02/18/25 09:11 Oxygen Delivery Me thod Room Air 02/18/25 09:11 MDM - Fall Medical Decision Making Patient presents with headache after a fall. Differential includes skull fracture, intracerebral hemorrhage, closed head injury. Patient no loss of conscious her headache is mild no hematoma she has no signs of fracture or hemorrhage does not require head CT at this time. Likely closed head injury patient is here with staff states she been falling frequently and they have been requesting a walker we will get a DME order for a walker for her she is stable for discharge at this time follow-up PCP return if worsening Medical Records I reviewed the patient's medical records. No radiology studies performed this visit Discharge Plan Discharge Patient Disposition: Home Clinical Impression: CHI (closed head injury), Falls frequently Condition: Stable Prescriptions: No Action latanoprost 0.005 % drops 1 drp ophthalmic (eye) QPM magnesium hydroxide [Milk of Magnesia] 400 mg/5 mL suspension 60 ml PO DAILY PRN (Reason: constipation) Qty: 355 3RF medroxyprogesterone 150 mg/mL suspension See Rx Instructions .ROUTE .COMPLEX Qty: 1 3RF Dose Instruction: INJECT 1mL INTRAMUSCULARLY ONCE every THREE MONTHS Rx Instructions: INJECT 1mL INTRAMUSCULARLY ONCE every THREE MONTHS fluvoxamine 100 mg tablet 100 mg PO BID Qty: 60 2RF Rx Instructions: ALONG WITH 50MG TO= 150MG TOTAL divalproex 500 mg tablet extended release 24 hr 500 mg PO BID Qty: 60 2RF clonazepam 0.5 mg tablet 0.5 mg PO TID Qty: 90 2RF pantoprazole 40 mg tablet,delayed release (DR/EC) 40 mg PO DAILY Qty: 90 0RF meloxicam 15 mg tablet 15 mg PO DAILY PRN (Reason: pain) Qty: 30 2RF Rx Instructions: no ibuprofen on day of meloxicam use polyethylene glycol 3350 17 gram/dose powder See Rx Instructions .ROUTE .COMPLEX Qty: 510 3RF Dose Instruction: FILL CAP TO LINE (17 GRAMS), MIX IN 8 OUNCES OF LIQUID AND DRINK BY MOUTH ONCE DAILY Rx Instructions: FILL CAP TO LINE (17 GRAMS), MIX IN 8 OUNCES OF LIQUID AND DRINK BY MOUTH ONCE DAILY fluticasone propionate 50 mcg/actuation spray,suspension See Rx Instructions .ROUTE .COMPLEX Qty: 16 5RF Dose Instruction: INHALE TWO PUFFS IN EACH NOSTRIL NEEDED FOR nasal congestion/allergy symptoms Rx Instructions: INHALE TWO PUFFS IN EACH NOSTRIL NEEDED FOR nasal congestion/allergy symptoms haloperidol 5 mg tablet 5 mg PO DAILY PRN (Reason: severe aggitation) dextromethorphan-guaifenesin [Tussin DM Max] 10-200 mg/5 mL Liquid 10 ml PO Q6H PRN (Reason: Cough) levothyroxine 125 mcg tablet 1,125 mcg PO QAM fluvoxamine 50 mg tablet 50 mg PO BID Rx Instructions: ALONG WITH 100MG TO= 150MG TOTAL quetiapine 300 mg Tablet 300 mg PO BEDTIME acetaminophen 325 mg tablet 650 mg PO Q6H PRN (Reason: fever>100.4/Pain) Rx Instructions: not TO exceed 4,000mg in 24 hours. docusate sodium 100 mg capsule 100 mg PO BID Discharge Orders: Discharge ED (Routine); Ordered 02/18/25 Ordered By: Omar Alicea Other Ambulatory Orders: DME: Zhang (Order) Location: None Selected Ordered By: Omar Alicea Referrals: Ольга Quarles, CLINICAL LABORATORY MEDICAL DIRECTOR [Primary Care Provider, Family Practice] - 4-7 days Discharge Diet: Advance as tolerated Discharge Activity: Resume usual activity Patient Instructions: Head Injury (ED) Print Language: Mohawk Coding Level of Care Code ED Assistant Project Engineer for Lasha Turner
[2025-02-18 09:11] VITALS: RESP 18; O2SAT 98
== END 2025-02-18 10:00 | disposition home or self-care (01) ==
PROVIDERS: Emergency Provider Emergency Medicine; PCP Nurse Practitioner Family
DX: S09.8XXA Other specified injuries of head, initial encounter (principal); R29.6 Repeated falls; W19.XXXA Unspecified fall, initial encounter
CPT/HCPCS: 99282